=== PATIENT | male | born 1945 | race Caucasian/White ===

== ENCOUNTER 2016-12-15 14:01 | Emergency (ER) | payer OTHER ==
[~2016-12-15] VITALS: Ht 177.8 cm; Wt 59.0 kg
[2016-12-15 14:02] VITALS: BP 120/61; PULSE 101; RESP 20; TEMP 97.9; O2SAT 97
--- NOTE | 2016-12-15 14:39 | PD ---
Physical Exam Time Seen by Provider: 14:37 Narrative Pt is a [facility] from [facility] for evaluation of urinary retention for the past few hours. This has happened to him previously. C/o abdominal discomfort. Denies fever or chills. VSS. Awaiting bed placement. Data Data Last Documented VS Vital Signs Date Time Temp Pulse Resp B/P Pulse Ox O2 Delivery O2 Flow Rate FiO2 12/15/16 14:02 97.9 101 20 120/61 97 Room Air MDM Supervised Visit with AAYUSH: Francisca Matamoros Dec 15, 2016 14:39
--- NOTE | 2016-12-15 16:04 | PD ---
HPI . urinary retention Chief Complaint: Complaint Time Seen by Provider: 15:42 Travel History International Travel<30 days: No Contact w/Intl Traveler<30days: No Traveled to known affect area: No History of Present Illness HPI 60 year old male presents to ED for urinary retention from [facility]. PFSH Past Medical History Arthritis: No Asthma: No Autoimmune Disease: No Cancer: No Chemotherapy: No Chest Pain: No Congestive Heart Failure: No COPD: No Cerebrovascular Accident: No Diabetes: No Headaches: No Hypertension: No Radiation Therapy: No Renal Failure: No Seizures: No Past Surgical History Abdominal Surgery: Yes (APPENDECTOMY AND STOMACH SURGERY) Cardiac Surgery: No Ear Surgery: No Endocrine Surgery: No Eye Surgery: No Genitourinary Surgery: No Gynecologic Surgery: No Oral Surgery: No Pacemaker: No Thoracic Surgery: No Social History Alcohol Use: No Tobacco Use: No Substance Use: No Allergies-Medications (Allergen,Severity, Reaction): Coded Allergies: Depakote (Verified Allergy, Severe, 02/01/04) Zyprexa (Verified Allergy, Severe, 02/01/04) Ritalin (Verified Allergy, Unknown, 12/15/16) Reported Meds & Prescriptions Reported Meds & Active Scripts Active Reported Seroquel (Quetiapine Fumarate) 50 Mg Tab 50 Mg PO DAILY Buspirone (Buspirone HCl) 15 Mg Tab 15 Mg PO TID Mirtazapine 15 Mg Tab 15 Mg PO HS Quetiapine (Quetiapine Fumarate) 300 Mg Tab 600 Mg PO HS Quetiapine (Quetiapine Fumarate) 300 Mg Tab 300 Mg PO DAILY Review of Systems Genitourinary: Positive: Decreased Urinary Output, Hesitancy Physical Exam Narrative GENERAL: Awake and alert and in no acute distress. SKIN: Warm and dry. HEAD: Atraumatic. Normocephalic. EYES: Pupils equal and round. NECK: Trachea midline. CARDIOVASCULAR: Regular rate and rhythm. RESPIRATORY: No accessory muscle use. : bladder distended. MUSCULOSKELETAL: No obvious deformities. No edema. NEUROLOGICAL: Awake and alert. No obvious cranial nerve deficits. Motor grossly within normal limits. Normal speech. PSYCHIATRIC: Appropriate mood and affect; insight and judgment normal. Data Data Last Documented VS Vital Signs Date Time Temp Pulse Resp B/P Pulse Ox O2 Delivery O2 Flow Rate FiO2 12/15/16 14:02 97.9 101 20 120/61 97 Room Air Orders Urinalysis - C+S If Indicated (12/15/16 15:56) Labs Laboratory Tests Test 12/15/16 16:30 Urine Color YELLOW Urine Turbidity CLEAR Urine pH 5.5 Urine Specific Delmar 1.008 Urine Protein NEG mg/dL Urine Glucose (UA) NEG mg/dL Urine Ketones NEG mg/dL Urine Occult Blood NEG Urine Nitrite NEG Urine Bilirubin NEG Urine Urobilinogen LESS THAN 2.0 MG/DL Urine Leukocyte Esterase NEG Urine RBC LESS THAN 1 /hpf Urine WBC 1 /hpf Urine Squamous Epithelial <1 /hpf Cells Urine Mucus FEW /lpf Urine Sperm RARE Microscopic Urinalysis Comment CATH-CULT NOT IND MDM Medical Decision Making Medical Screen Exam Complete: Yes Emergency Medical Condition: Yes Differential Diagnosis differentials include urinary retention, UTI, medication reaction. Narrative Course Patient was sent from [facility] for urinary retention. Bray catheter was inserted at beside and 850 cc of urine was drained. Urine sent to lab for analysis. UA neg for infection. Patient will be discharged back to [facility]. Procedures Procedure Narrative Following appropriate patient identification, a 16 luxembourgish bray was inserted using sterile technique. Positive urine return tolerated well. Diagnosis Primary Impression: Urinary retention Patient Instructions: General Instructions, Urinary Retention in Men (DC) Disposition: 01 DISCHARGE HOME Condition: Stable Meredith Lawrence MD Dec 15, 2016 16:04
[2016-12-15] MEDS ORDERED: QUET1TAB10 PO ×2 (16:14)
[2016-12-15] MEDS ORDERED: MIRTA15 PO (16:14)
[2016-12-15] MEDS ORDERED: BUSP15TA PO (16:16)
[2016-12-15] MEDS ORDERED: SERO50TA PO (16:16)
[2016-12-15 16:43] LABS: BLOOD, URINE NEG (NEG); COMMENT (UR) CATH-CULT NOT IND; CULTURE IF INDICATED CATH CULTURE NOT IND; GLUCOSE,URINE NEG (NEG); KETONE, URINE NEG (NEG); MUCUS URINE FEW /lpf (OCC); NITRITE,URINE NEG (NEG); PH, URINE 5.5 (5.0-8.5); SQUAMOUS EPITHELIAL CELL URINE <1 /hpf (0-5); URINE COLOR YELLOW (YELLW/STRAW)
== END 2016-12-15 17:11 | disposition home or self-care (01) ==
LOC: NEPD 14:01
DX: R33.9 Retention of urine, unspecified (principal)
CPT/HCPCS: 51702; 81001

== ENCOUNTER 2016-12-15 19:03 | Observation (INO) | payer OTHER ==
[~2016-12-15] VITALS: Ht 185.4 cm; Wt 64.8 kg
[~2016-12-15 19:03] MED LIST: BUSP15TA PO; MIRTA15 PO; QUET1TAB10 PO; SERO50TA PO
[2016-12-15 19:06] VITALS: BP 128/91; PULSE 88; RESP 16; TEMP 98.3; O2SAT 95
[2016-12-15 19:14] VITALS: BP 138/79; PULSE 75; RESP 18; TEMP 97.9; O2SAT 99
--- NOTE | 2016-12-15 20:13 | PD ---
HPI Chief Complaint: Medical Clearance Time Seen by Provider: 19:35 Travel History International Travel<30 days: No Contact w/Intl Traveler<30days: No Traveled to known affect area: No History of Present Illness HPI Earlier today Patient was sent from [facility] for urinary retention. Bray catheter was inserted and 850 cc of urine was drained. UA neg for infection and patient was discharged back to [facility]. The patient was then sent back to the hospital because [facility] would not accept the patient with a Bray catheter and leg bag stating "it was beyond her scope of practice". Patient's only complaint is that he feels depressed and anxious. He denies homicidal or suicidal ideation at this time. He denies abdominal pain. The Bray is in place and draining clear yellow urine to the leg bag. Patient was apparently [place] acted on 12/13/16 for bipolar disorder and worsening depression. [facility] Past Medical History Narrative Medical Significant for bipolar, depression Arthritis: No Asthma: No Autoimmune Disease: No Cancer: No Chemotherapy: No Chest Pain: No Congestive Heart Failure: No COPD: No Cerebrovascular Accident: No Diabetes: No Diminished Hearing: No Headaches: No Hypertension: No Psychiatric: Yes (HX BIPOLAR) Radiation Therapy: No Renal Failure: No Seizures: No Tetanus Vaccination: Unknown Past Surgical History Abdominal Surgery: Yes (APPENDECTOMY AND STOMACH SURGERY) Appendectomy: Yes Cardiac Surgery: No Ear Surgery: No Endocrine Surgery: No Eye Surgery: No Genitourinary Surgery: No Gynecologic Surgery: No Oral Surgery: No Pacemaker: No Thoracic Surgery: No Social History Alcohol Use: No Tobacco Use: No Substance Use: No Allergies-Medications (Allergen,Severity, Reaction): Coded Allergies: Depakote (Verified Allergy, Severe, 02/01/04) Zyprexa (Verified Allergy, Severe, 02/01/04) Ritalin (Verified Allergy, Unknown, 12/15/16) Reported Meds & Prescriptions Reported Meds & Active Scripts Active Reported Seroquel (Quetiapine Fumarate) 50 Mg Tab 50 Mg PO DAILY Buspirone (Buspirone HCl) 15 Mg Tab 15 Mg PO TID Mirtazapine 15 Mg Tab 15 Mg PO HS Quetiapine (Quetiapine Fumarate) 300 Mg Tab 600 Mg PO HS Quetiapine (Quetiapine Fumarate) 300 Mg Tab 300 Mg PO DAILY Review of Systems Except as stated in HPI: all other systems reviewed are Neg General / Constitutional: No: Fever Eyes: No: Visual changes HENT: No: Headaches Cardiovascular: No: Chest Pain or Discomfort Respiratory: No: Shortness of Breath Gastrointestinal: No: Abdominal Pain Skin: No Rash Psychiatric: Positive: Anxiety, Depression Physical Exam Narrative GENERAL: Alert, elderly male, no acute distress. SKIN: Focused skin assessment warm/dry. HEAD: Atraumatic. Normocephalic. EYES: Pupils equal and round. No scleral icterus. No injection or drainage. ENT: No nasal bleeding or discharge. Mucous membranes pink and moist. NECK: Trachea midline. No JVD. CARDIOVASCULAR: Regular rate and rhythm. No murmur appreciated. RESPIRATORY: No accessory muscle use. Clear to auscultation. Breath sounds equal bilaterally. GASTROINTESTINAL: Abdomen soft, non-tender, nondistended. Hepatic and splenic margins not palpable. MUSCULOSKELETAL: No obvious deformities. No clubbing. No cyanosis. No edema. NEUROLOGICAL: Awake and alert. No obvious cranial nerve deficits. Motor grossly within normal limits. Normal speech. PSYCHIATRIC: Patient appears somewhat anxious, avoids eye contact. Answers questions appropriately Data Data Last Documented VS Vital Signs Date Time Temp Pulse Resp B/P Pulse Ox O2 Delivery O2 Flow Rate FiO2 12/15/16 19:14 97.9 75 18 138/79 99 Orders Psych Screen (12/15/16 19:18) Complete Blood Count With Diff (12/15/16 20:15) Comprehensive Metabolic Panel (12/15/16 20:15) Labs Laboratory Tests Test 12/15/16 16:20 White Blood Count 11.8 TH/MM3 Red Blood Count 3.58 MIL/MM3 Hemoglobin 9.7 GM/DL Hematocrit 30.0 % Mean Corpuscular Volume 83.8 FL Mean Corpuscular Hemoglobin 27.1 PG Mean Corpuscular Hemoglobin 32.4 % Concent Red Cell Distribution Width 14.7 % Platelet Count 211 TH/MM3 Mean Platelet Volume 8.0 FL Neutrophils (%) (Auto) 83.6 % Lymphocytes (%) (Auto) 8.6 % Monocytes (%) (Auto) 7.1 % Eosinophils (%) (Auto) 0.3 % Basophils (%) (Auto) 0.4 % Neutrophils # (Auto) 9.8 TH/MM3 Lymphocytes # (Auto) 1.0 TH/MM3 Monocytes # (Auto) 0.8 TH/MM3 Eosinophils # (Auto) 0.0 TH/MM3 Basophils # (Auto) 0.0 TH/MM3 CBC Comment DIFF FINAL Differential Comment MDM Medical Decision Making Medical Screen Exam Complete: Yes Emergency Medical Condition: Yes Differential Diagnosis Urinary retention, mood disorder, depression, anxiety Narrative Course 71-year-old male here in [facility] under [place] act for psychosis. Patient was seen earlier today for urinary retention. He had bray catheter placed and sent back to [facility]. According to them this is beyond her scope of practice therefore they sent him back to the hospital. Lab work pending. Psych screening pending. 2054 Dr. Schultz to follow patient. Diagnosis Primary Impression: Urinary retention Leona Kasper Dec 15, 2016 20:13
--- NOTE | 2016-12-15 20:15 | PD ---
Data Data Last Documented VS Vital Signs Date Time Temp Pulse Resp B/P Pulse Ox O2 Delivery O2 Flow Rate FiO2 12/15/16 19:14 97.9 75 18 138/79 99 Orders Psych Screen (12/15/16 19:18) MDM Supervised Visit with AAYUSH: Yes Narrative Course The history, exam, and medical decision-making in the associated mid-level provider note were completed with my assistance. I reviewed and agree with the findings presented. I attest that I had a [id number] encounter with the patient on the same day, and personally performed and documented my assessment and findings in the medical record. *My assessment and Findings: 8-year-old man, under [place] act for psychosis, seen for urinary retention with a Amos catheter placed, apparently now not within [facility] scope of care. Sent back to the ED. We'll plan psych to see for admission. We'll check creatinine and blood work. Denys Pisano MD Dec 15, 2016 20:15
[2016-12-15 20:55] LABS: AUTOMATED NEUTROPHIL # 9.8 TH/MM3 (1.8-7.7); BASOPHIL % 0.4 % (0.0-2.0); EOSINOPHIL % 0.3 % (0.0-4.0); HEMO FLAGS DIFF FINAL; LYMPH % 8.6 % (9.0-44.0); MEAN CELL VOLUME 83.8 FL (80.0-100.0); MEAN CORPUSCULAR HEMOGLOBIN 27.1 PG (27.0-34.0); MEAN CORPUSCULAR HGB CONC 32.4 % (32.0-36.0); MONO % 7.1 % (0.0-8.0); NEUT % 83.6 % (16.0-70.0); PLATELET COUNT 211 TH/MM3 (150-450); RED BLOOD COUNT 3.58 MIL/MM3 (4.50-5.90); RED CELL DISTRIBUTION WIDTH 14.7 % (11.6-17.2); WHITE BLOOD COUNT 11.8 TH/MM3 (4.0-11.0)
[2016-12-15 21:06] LABS: ALT (GPT) 23 U/L (12-78); ANION GAP 9 MEQ/L (5-15); AST (GOT) 20 U/L (15-37); BICARBONATE 22.9 MEQ/L (21.0-32.0); BLOOD UREA NITROGEN 26 MG/DL (7-18); CHLORIDE 94 MEQ/L (98-107); GLOMERULAR FILTRATION RATE 41 ML/MIN (>89); POTASSIUM 4.2 MEQ/L (3.5-5.1); SODIUM (NA) 126 MEQ/L (136-145)
[2016-12-15 21:09] LABS: ALKALINE PHOSPHATASE 49 U/L (45-117); TOTAL BILIRUBIN ADULT 0.6 MG/DL (0.2-1.0)
[2016-12-15 22:33] VITALS: BP 124/76; PULSE 85; RESP 16
[2016-12-16 02:15] VITALS: BP 145/79; PULSE 73; RESP 18; TEMP 98; O2SAT 96
[2016-12-16 08:10] VITALS: BP 113/58; PULSE 85; RESP 16; O2SAT 97
[2016-12-16] MEDS ORDERED: ACETAMINOPHEN 325 MG TAB PO PRN (12:00)
[2016-12-16] MEDS ORDERED: LORazepam 1 MG TAB PO PRN (12:00)
[2016-12-16] MEDS ORDERED: LORazepam 2 MG/ML VIAL IM PRN ×2 (12:00)
[2016-12-16] MEDS ORDERED: MAGNESIUM HYDROXIDE SUSP 30 ML CUP PO PRN ×2 (12:00→18:11)
[2016-12-16] MEDS ORDERED: LORazepam 0.5 MG TAB PO PRN (12:00)
[2016-12-16] MEDS ORDERED: ALUMINUM/MAGNESIUM/SIMETH 30 ML CUP PO PRN (12:00)
--- NOTE | 2016-12-16 12:08 | HHI.HP ---
Provisional Diagnosis Admission Date Crystal I. Dementia with behavioral disturbance Certification of Person's Competence To Provide Express and Informed Consent I have personally examined Tyler Catherine , a person being served at [facility] on, Dec 16, 2016 11:56. Express and informed consent means consent voluntarily given in writing, by a competent person, after sufficient explanation and disclosure of the subject matter involved to enable the person to make a knowing and willful decision without any element of force, fraud, deceit, duress, or other form of constraint or coercion. This person is 18 years of age or older, is not now known to be incompetent to consent to treatment with a guardian advocate, and does not have a health care surrogate or proxy currently making medical treatment decisions. I have found this person to be one of the following: [X] Competent to provide express and informed consent, as defined above, for voluntary admission to this facility and is competent to provide express and informed consent for treatment. He/she has the consistent capacity to make well reasoned, willful, and knowing decisions concerning his or her medical or mental health treatment. The person fully and consistently understands the purpose of the admission for examination/placement and is fully capable of personally exercising all rights assured under [place] Incompetent to provide express and informed consent to voluntary admission, and this is incompetent to provide express and informed consent to treatment. The person must be transferred to involuntary status and a petition for a guardian advocate filed with the Circuit Court. [] Refusing to provide express and informed consent to voluntary admission but is competent to provide express and informed consent for treatment. The person must be discharged or transferred to involuntary status. Form shall be completed within 24 hours of a person's arrival at the receiving facility and filed in the clinical record of each person: 1. Admitted on a voluntary basis 2. Permitted to provide express and informed consent to his/her own treatment 3. Allowed to transfer from involuntary to voluntary status 4. Prior to permitting a person to consent to his or her own treatment after having been previously found incompetent to consent to treatment. History of Present Illness Capacity: Has Capacity HPI This is a 71-year-old male admitted under a [place] act initiated by a car and he at [facility]. He is a poor historian and the history provided is somewhat complicated and contradictory. However patient is unable to explain his situation. He presented at [facility] highly anxious and agitated, pacing and refusing to sit down. He reportedly had thoughts of killing himself by drinking bleach within the last several days. This contradicts the [facility] emergency department evaluation in which the patient denied being suicidal. The patient also endorsed hopelessness helplessness low self-esteem, etc. He was found to be confused by previous evaluators and by this physician. He was unable to provide detailed information about the recent events that led to his presentation here. He did present with urinary retention and catheterized, he produced 850CC of urine was expelled. When asked if he had suicidal thoughts the patient stated "hard to say if I am suicidal." The patient reportedly lives in a delay and long-term facility. He has reportedly been treated at [facility] for bipolar disorder. He is not able to confirm this. He does not have a history of substance abuse or alcohol abuse. He remains disoriented to date, time and situation. Review of Systems Except as stated in HPI: all other systems reviewed are Neg Genitourinary: COMPLAINS OF: Dysuria Past Psych History Psychological trauma history No known history of psychological trauma but the patient states he has been treated at [facility] in the [place]. Violence risk - others (6 mos) Minimal Violence risk - self (6 mos) Patient is at high risk for self-harm and self-neglect. Substance Abuse History Drugs/Alcohol past 12 months Denied Past Family Social History Coded Allergies: Depakote (Verified Allergy, Severe, 02/01/04) Zyprexa (Verified Allergy, Severe, 02/01/04) Ritalin (Verified Allergy, Unknown, 12/15/16) Reported Medications Quetiapine (Seroquel)50 Mg Tab50 Mg PO DAILY Ref 0 12/15/16 Buspirone 15 Mg Tab15 Mg PO TID Ref 0 12/15/16 Mirtazapine 15 Mg Tab15 Mg PO HS Ref 0 12/15/16 Quetiapine 300 Mg [id number] Mg PO HS Ref 0 12/15/16 Quetiapine 300 Mg [id number] Mg PO DAILY Ref 0 12/15/16 Family History Patient unable to answer. Social History Retired. Lives in some type of residential care facility. Does not have a history of alcoholism or drug abuse. Patient's Strengths (min. 2) Resilient and has access to healthcare. Physical Exam GENERAL: SKIN: Warm and dry. HEAD: Normocephalic. EYES: No scleral icterus. No injection or drainage. NECK: Supple, trachea midline. No JVD or lymphadenopathy. CARDIOVASCULAR: Regular rate and rhythm without murmurs, gallops, or rubs. RESPIRATORY: Breath sounds equal bilaterally. No accessory muscle use. GASTROINTESTINAL: Abdomen soft, non-tender, nondistended. MUSCULOSKELETAL: No cyanosis, or edema. BACK: Nontender without obvious deformity. No CVA tenderness. Vital Signs Vital Signs Date Time Temp Pulse Resp B/P Pulse Ox O2 Delivery O2 Flow Rate FiO2 12/16/16 08:10 85 16 113/58 97 Room Air 12/16/16 02:15 98.0 Mental Status Examination Speech: Hesitant, Stuttering Orientation: Person, Place Memory: Impaired (describe) Thought Process: Tangential Thought Content: Bizarre thinking Hallucination Type: None Attention and Concentration: Easily Distracted Suicidal Ideation: Yes Previous Suicide Attempts: No Homicidal Ideation: No Previous Homicide Attempts: No Insight: Fair Judgment: Unrealistic Affect: Anxious Affect if Inappropriate: Labile Mood: Anxious Motor Activity: Normal gait Assessment & Plan Problem List: (1) Dementia in other diseases classified elsewhere with behavioral disturbance ICD Code: F02.81 Assessment & Plan Estimated LOS: days this is a 71-year-old male who is presently at high risk for self-harm and self-neglect. He has apparently voiced suicidal thinking and claimed to have drunk bleach in the last several days. He is also claiming ongoing suicidal thoughts which occur intermittently and unpredictably. Furthermore, he has urinary retention to the tune of 850 cc expressed after catheterization. He is oriented to person and place only. He is obviously unable to care for himself at this time, without assistance. This physician has ordered a CBC and comprehensive metabolic profile to ensure no infectious process or metabolic process is causing him confusion and anxiety. Furthermore, his thyroid function will be checked to ensure he is not hypo-or hyperthyroidism, causing mood or psychosis. He will receive an EKG to ensure cardiac conduction systems are not adversely affected by psychotropic medications. This physician is contacting a hospitalist to evaluate and treat the patient for urinary retention. This physician spoke to the patient's nurse regarding his current behavior and this physician is asking for an occupational therapy consult to ascertain the patient's functional status. A embalmer assistant will also be asked to gather more information. We will check vitamin B-12 and vitamin D levels to ensure this is not contributing to a dementia process. Hussain Pompa MD Dec 16, 2016 12:08
[2016-12-16] MEDS ORDERED: SODIUM CHLOR 0.9% 1000 ML INJ 1,000 ML IV ONE (14:00)
[2016-12-16 17:17] LABS: AUTOMATED NEUTROPHIL # 6.1 TH/MM3 (1.8-7.7); BASOPHIL % 0.1 % (0.0-2.0); EOSINOPHIL % 0.1 % (0.0-4.0); HEMATOCRIT 30.7 % (39.0-51.0); HEMO FLAGS DIFF FINAL; LYMPH % 11.9 % (9.0-44.0); LYMPHOCYTE # 0.9 TH/MM3 (1.0-4.8); MEAN CELL VOLUME 82.3 FL (80.0-100.0); MEAN CORPUSCULAR HEMOGLOBIN 27.7 PG (27.0-34.0); MEAN CORPUSCULAR HGB CONC 33.7 % (32.0-36.0); MONO % 8.3 % (0.0-8.0); NEUT % 79.6 % (16.0-70.0); PLATELET COUNT 225 TH/MM3 (150-450); RED BLOOD COUNT 3.73 MIL/MM3 (4.50-5.90); RED CELL DISTRIBUTION WIDTH 14.7 % (11.6-17.2); WHITE BLOOD COUNT 7.7 TH/MM3 (4.0-11.0)
[2016-12-16] MEDS ORDERED: NALOXONE HCL 0.4 MG/ML AMP IV PRN (17:30)
[2016-12-16] MEDS ORDERED: SODIUM CHLORIDE 0.9% FLUSH 10 ML FLUSH IV FLUSH PRN (17:30)
[2016-12-16 17:32] LABS: ANION GAP 8 MEQ/L (5-15); AST (GOT) 17 U/L (15-37); BICARBONATE 26.2 MEQ/L (21.0-32.0); BLOOD UREA NITROGEN 22 MG/DL (7-18); CHLORIDE 96 MEQ/L (98-107); GLOMERULAR FILTRATION RATE 45 ML/MIN (>89); POTASSIUM 4.5 MEQ/L (3.5-5.1); SODIUM (NA) 130 MEQ/L (136-145)
[2016-12-16 17:34] LABS: ALKALINE PHOSPHATASE 48 U/L (45-117); ALT (GPT) 22 U/L (12-78); TOTAL BILIRUBIN ADULT 0.6 MG/DL (0.2-1.0)
[2016-12-16] MEDS ORDERED: SENNOSIDES 8.6 MG TAB PO PRN (18:00)
[2016-12-16] MEDS ORDERED: BISACODYL 10 MG SUPP RECTAL PRN (18:00)
[2016-12-16] MEDS ORDERED: LACTULOSE SYRUP 20 GM/30 ML CUP PO PRN (18:00)
[2016-12-16 18:30] VITALS: BP 113/67
[2016-12-16 20:00] VITALS: BP 103/54; PULSE 69; RESP 20; TEMP 97.2; O2SAT 100
[2016-12-16] MEDS: traZODone HCL 50 MG TAB PO PRN (20:29)
[2016-12-16] MEDS: DOCUSATE SODIUM 50 MG/SENNA 8.6 MG TAB PO SCH (20:29)
[2016-12-16] MEDS: SODIUM CHLORIDE 0.9% FLUSH 10 ML FLUSH IV FLUSH SCH (20:29)
--- NOTE | 2016-12-16 23:00 | HHI.HP ---
[facility] Admission Diagnosis DEMENTIA WITH BEHAV DISTURB Diagnoses: Travel History International Travel<30 Days: No Contact w/Intl Traveler <30 Da: No Traveled to Known Affected Are: No History of Present Illness Patient reports being sent in the ER from [facility]. Patient is from SNF , was undergoing detox at [facility]. Patient reports being sent in to ER for urinary retention. He denies any burning with urination. He says he has had difficulty urinating for some time, however cannot tell me how long Not taking medications for urinary symptoms. He denies any chest pain or shortness breath. Denies any nausea or vomiting. Oddly enough he denies any illicit drugs. Patient is a very poor historian, and history is difficult due to this. Patient does recall being told he has a problem with low sodium in the past, as well as a problem with poor kidney function. Review of Systems attempted but difficult secondary to disorganized speech Past Family Social History Past Medical History Anxiety Depression History of bipolar disorder Past Surgical History Appendectomy Esophageal dilation in the past. Patient denies any difficulty swallowing. Allergies: Coded Allergies: Depakote (Verified Allergy, Severe, 02/01/04) Zyprexa (Verified Allergy, Severe, 02/01/04) Ritalin (Verified Allergy, Unknown, 12/15/16) Family History Family history attempted but patient very poor historian Social History Patient denies any smoking, drinking. He seems to acknowledge a history of illicit drugs, however does not describe which, and denies current use. Physical Exam Vital Signs Vital Signs Date Time Temp Pulse Resp B/P Pulse Ox O2 Delivery O2 Flow Rate FiO2 12/16/16 20:00 97.2 69 20 103/54 100 12/16/16 18:30 78 18 113/67 99 12/16/16 08:10 85 16 113/58 97 Room Air 12/16/16 02:15 98.0 73 18 145/79 96 Room Air Physical Exam GENERAL: thin 71-year-old male. Disorganized speech. SKIN: No rashes, ecchymoses or lesions. Cool and dry. HEAD: Atraumatic. Normocephalic. No temporal or scalp tenderness. EYES: Pupils equal round and reactive. Extraocular motions intact. No scleral icterus. No injection or drainage. ENT: Nose without bleeding, purulent drainage or septal hematoma. Throat without erythema, tonsillar hypertrophy or exudate. Uvula midline. Airway patent. NECK: Trachea midline. No JVD or lymphadenopathy. Supple, nontender, no meningeal signs. CARDIOVASCULAR: Regular rate and rhythm without murmurs, gallops, or rubs. RESPIRATORY: Clear to auscultation. Breath sounds equal bilaterally. No wheezes , rales, or rhonchi. GASTROINTESTINAL: Abdomen soft, non-tender, nondistended. No hepato-splenomegaly , or palpable masses. No guarding. MUSCULOSKELETAL: Extremities without clubbing, cyanosis, or edema. No joint tenderness, effusion, or edema noted. No calf tenderness. Negative Homans sign bilaterally. NEUROLOGICAL: Awake and alert. Cranial nerves II through XII intact. Motor and sensory grossly within normal limits. Five out of 5 muscle strength in all muscle groups. Normal speech. Laboratory Laboratory Tests Test 12/16/16 16:40 White Blood Count 7.7 Red Blood Count 3.73 Hemoglobin 10.3 Hematocrit 30.7 Mean Corpuscular Volume 82.3 Mean Corpuscular Hemoglobin 27.7 Mean Corpuscular Hemoglobin 33.7 Concent Red Cell Distribution Width 14.7 Platelet Count 225 Mean Platelet Volume 8.0 Neutrophils (%) (Auto) 79.6 Lymphocytes (%) (Auto) 11.9 Monocytes (%) (Auto) 8.3 Eosinophils (%) (Auto) 0.1 Basophils (%) (Auto) 0.1 Neutrophils # (Auto) 6.1 Lymphocytes # (Auto) 0.9 Monocytes # (Auto) 0.6 Eosinophils # (Auto) 0.0 Basophils # (Auto) 0.0 CBC Comment DIFF FINAL Differential Comment Sodium Level 130 Potassium Level 4.5 Chloride Level 96 Carbon Dioxide Level 26.2 Anion Gap 8 Blood Urea Nitrogen 22 Creatinine 1.55 Estimat Glomerular Filtration 45 Rate Random Glucose 109 Calcium Level 9.2 Total Bilirubin 0.6 Aspartate Amino Transf 17 (AST/SGOT) Alanine Aminotransferase 22 (ALT/SGPT) Alkaline Phosphatase 48 Total Protein 6.7 Albumin 3.8 Result Diagram: 12/16/16 1640 12/16/16 1640 Assessment and Plan Assessment and Plan //Suicidality. //Depression //History of bipolar Psychiatry following. Sitter ordered. Appreciate assistance. //Hyponatremia. Possibly subacute. Possibly secondary to antipsychotics. Repeat labs ordered. Fluid bolus. Continue to monitor //Urinary retention. Patient previously cathetered. Postvoid residual ordered. Could consider starting tamsulosin pending results. //Suspected chronic kidney disease. Follow kidney function. Outside records requested //Prophylaxis. SCDs. Discussed Condition With patient, nurse. Physician Certification 2 Midnight Certification Type: Continued Stay Order for Inpatient Services The services are ordered in accordance with Medicare regulations or non- Medicare payer requirements, as applicable. In the case of services not specified as inpatient-only, they are appropriately provided as inpatient services in accordance with the 2-midnight benchmark. Estimated LOS (days): 1 days is the estimated time the patient will need to remain in the hospital, assuming treatment plan goals are met and no additional complications. Post-Hospital Plan: Not yet determined Notes: patient will be observation. Max Albert MD Dec 16, 2016 23:00
[2016-12-17] VITALS: BP 102/59; PULSE 67; RESP 20; TEMP 98; O2SAT 97
[2016-12-17 04:00] VITALS: BP 115/69; PULSE 60; RESP 20; TEMP 95.4; O2SAT 98
[2016-12-17 07:00] LABS: BACTERIA, URINE RARE /hpf; BLOOD, URINE TRACE (NEG); COMMENT (UR) CULT NOT INDICATED; CULTURE IF INDICATED CULT NOT INDICATED; GLUCOSE,URINE NEG (NEG); KETONE, URINE NEG (NEG); NITRITE,URINE NEG (NEG); PH, URINE 7.5 (5.0-8.5); URINE COLOR LIGHT-YELLOW (YELLW/STRAW)
[2016-12-17 07:16] LABS: AMPHETAMINE, URINE NEG (NEG); BARBITURATES, URINE NEG (NEG); COCAINE, URINE NEG (NEG)
[2016-12-17 08:00] VITALS: BP 105/63; PULSE 65; RESP 19; TEMP 96.3; O2SAT 100
[2016-12-17] MEDS: DOCUSATE SODIUM 50 MG/SENNA 8.6 MG TAB PO SCH ×2 (08:12→20:36)
[2016-12-17] MEDS: SODIUM CHLORIDE 0.9% FLUSH 10 ML FLUSH IV FLUSH SCH ×2 (08:12→20:36)
[2016-12-17 08:36] LABS: AUTOMATED NEUTROPHIL # 3.6 TH/MM3 (1.8-7.7); BASOPHIL % 0.3 % (0.0-2.0); EOSINOPHIL % 0.6 % (0.0-4.0); HEMATOCRIT 29.4 % (39.0-51.0); HEMO FLAGS DIFF FINAL; LYMPH % 15.4 % (9.0-44.0); LYMPHOCYTE # 0.7 TH/MM3 (1.0-4.8); MEAN CELL VOLUME 82.8 FL (80.0-100.0); MEAN CORPUSCULAR HEMOGLOBIN 27.3 PG (27.0-34.0); MONO % 9.6 % (0.0-8.0); NEUT % 74.1 % (16.0-70.0); PLATELET COUNT 190 TH/MM3 (150-450); RED BLOOD COUNT 3.55 MIL/MM3 (4.50-5.90); RED CELL DISTRIBUTION WIDTH 14.5 % (11.6-17.2); WHITE BLOOD COUNT 4.8 TH/MM3 (4.0-11.0)
[2016-12-17 09:02] LABS: ALT (GPT) 19 U/L (12-78); ANION GAP 6 MEQ/L (5-15); AST (GOT) 13 U/L (15-37); BICARBONATE 26.6 MEQ/L (21.0-32.0); BLOOD UREA NITROGEN 19 MG/DL (7-18); CHLORIDE 98 MEQ/L (98-107); GLOMERULAR FILTRATION RATE 55 ML/MIN (>89); POTASSIUM 4.5 MEQ/L (3.5-5.1); SODIUM (NA) 131 MEQ/L (136-145)
[2016-12-17 09:29] LABS: ALKALINE PHOSPHATASE 44 U/L (45-117); HDL CHOLESTEROL 90.3 MG/DL (40.0-60.0); LDL CHOLESTEROL 45 MG/DL (0-99); TOTAL BILIRUBIN ADULT 0.9 MG/DL (0.2-1.0)
--- NOTE | 2016-12-17 11:40 | HHI.PR ---
Subjective Remarks Patient reports constipation today. He was given milk of magnesia. States he had one bowel movement but still feel constipated. Amos draining clear urine. Objective Vitals Vital Signs Date Time Temp Pulse Resp B/P Pulse Ox O2 Delivery O2 Flow Rate FiO2 12/17/16 08:00 96.3 65 19 105/63 100 12/17/16 04:00 95.4 60 20 115/69 98 12/17/16 00:00 98.0 67 20 102/59 97 12/16/16 20:00 97.2 69 20 103/54 100 12/16/16 18:30 78 18 113/67 99 I/O 12/16/16 12/16/16 12/16/16 12/17/16 12/17/16 12/17/16 07:00 15:00 23:00 07:00 15:00 23:00 Intake Total 560 ml Output Total 65 ml Balance 560 ml -65 ml Intake Oral 560 ml Output Urine Total 65 ml # Voids 1 1 # Bowel Movements 1 Result Diagram: 12/17/16 0750 12/17/16 0750 Objective Remarks GENERAL: Patient is pacing in the room. CARDIOVASCULAR: Normal rate and regular rhythm without murmurs, gallops, or rubs. RESPIRATORY: Good respiratory efforts. Breath sounds equal and clear to auscultation bilaterally. GASTROINTESTINAL: Abdomen mildly distended and mildly tender diffusely. Hyperactive bowel sounds. MUSCULOSKELETAL: Extremities without cyanosis, or edema. NEURO: Alert & Oriented x4 to person, place, time, situation. Moves all ext x4 PSYCH: Anxious, pacing A/P Assessment and Plan 71 year-old male [facility]. Patient was sent to the hospital for urinary retention. He was sent back with a Amos catheter. However [facility] would not except him with a Amos catheter. Patient was readmitted to the hospital. Reported Suicidality. Depression History of bipolar Psychiatry following. Appreciate assistance. --He may benefit from psychiatric admission once medically cleared. Hyponatremia. Most likely subacute. Possibly secondary to antipsychotics. Appear to be stable. Continue to monitor. Urinary retention. Patient is unsure whether or not he is had prostate problems. He has a Amos catheter in place. BPH is very common in his age group. Will start Flomax. Continue Amos. Inpatient versus outpatient voiding trial. Suspected chronic kidney disease. Follow kidney function. Outside records requested Constipation: He is responding to the milk of magnesia. Monitor for more bowel movements. Continue stool softeners and laxatives as needed. Prophylaxis. SCDs. Discharge Planning Possible discharge to psych tomorrow. Karla Hernandez MD Dec 17, 2016 11:40
[2016-12-17 12:00] VITALS: BP 101/61; PULSE 73; RESP 18; TEMP 95.8; O2SAT 99
[2016-12-17] MEDS: TAMSULOSIN HCL 0.4 MG CAP PO SCH (12:53)
--- NOTE | 2016-12-17 13:45 | EKG ---
Date Performed: 12/16/2016 Time Performed: 14:34:51 PTAGE: 71 years EKG: Sinus rhythm POSSIBLE RIGHT ATRIAL ENLARGEMENT LEFT ATRIAL ENLARGEMENT POSSIBLE RIGHT VENTRICULAR CONDUCTION MELISSA Y ABNORMAL ECG Compared to prior tracing no significant change PREVIOUS TRACING : 04/07/2004 17.48 DOCTOR: Edmond Dickinson Interpretating Date/Time 12/17/2016 13:42:52
[2016-12-17 15:12] LABS: HEMOGLOBIN A1a 1.1 %; HEMOGLOBIN A1b 1.5 %; HEMOGLOBIN Ao 85.6 %; HEMOGLOBIN LA1C 1.8 %; HEMOGLOBIN P3 3.9 %
[2016-12-17 16:00] VITALS: BP 93/56; PULSE 78; RESP 18; TEMP 96.1; O2SAT 99
[2016-12-17] MEDS: SODIUM CHLOR 0.9% 1000 ML INJ 1,000 ML IV SCH (17:50)
[2016-12-17 20:14] VITALS: BP 99/55; PULSE 73; RESP 16; TEMP 97.4; O2SAT 99
[2016-12-17] MEDS: hydrOXYzine HCL 50 MG TAB PO PRN (20:36)
[2016-12-18] MEDS: SODIUM CHLOR 0.9% 1000 ML INJ 1,000 ML IV SCH ×3 (00:19→21:59)
[2016-12-18 00:23] VITALS: BP 118/59; PULSE 70; RESP 17; TEMP 97.8; O2SAT 99
[2016-12-18] MEDS: traZODone HCL 50 MG TAB PO PRN (02:52)
[2016-12-18 04:39] VITALS: BP 126/70; PULSE 64; RESP 17; TEMP 98.1; O2SAT 99
[2016-12-18 07:40] VITALS: BP 116/64; PULSE 63; RESP 18; TEMP 98; O2SAT 99
[2016-12-18] MEDS: TAMSULOSIN HCL 0.4 MG CAP PO SCH (09:00)
[2016-12-18] MEDS: DOCUSATE SODIUM 50 MG/SENNA 8.6 MG TAB PO SCH ×2 (09:00→21:58)
[2016-12-18] MEDS: SODIUM CHLORIDE 0.9% FLUSH 10 ML FLUSH IV FLUSH SCH ×2 (09:54→21:58)
[2016-12-18 11:34] VITALS: BP 119/69; PULSE 63; RESP 18; TEMP 97.7; O2SAT 100
--- NOTE | 2016-12-18 12:04 | HHI.PR ---
Subjective Remarks Patient reports is feeling much better today. He still does not remember whether or not he has had prostate or urinary retention problems in the past. He recalls he may have been on medications for this. He is agreeable to being admitted to the psychiatric unit to complete the treatment he started at [facility]. Objective Vitals Vital Signs Date Time Temp Pulse Resp B/P Pulse Ox O2 Delivery O2 Flow Rate FiO2 12/18/16 11:34 97.7 63 18 119/69 100 12/18/16 07:40 98.0 63 18 116/64 99 12/18/16 04:39 98.1 64 17 126/70 99 12/18/16 00:23 97.8 70 17 118/59 99 12/17/16 20:14 97.4 73 16 99/55 99 12/17/16 16:00 96.1 78 18 93/56 99 I/O 12/17/16 12/17/16 12/17/16 12/18/16 12/18/16 12/18/16 07:00 15:00 23:00 07:00 15:00 23:00 Intake Total 1100 ml 360 ml Output Total 65 ml 550 ml 1750 ml 250 ml Balance -65 ml -550 ml -650 ml 110 ml Intake Oral 360 ml IV Total 1100 ml Output Urine Total 65 ml 550 ml 1750 ml 250 ml # Voids 1 # Bowel Movements 2 Result Diagram: 12/17/16 0750 12/17/16 0750 Objective Remarks GENERAL: Patient is more calm today, laying in bed. CARDIOVASCULAR: Normal rate and regular rhythm without murmurs, gallops, or rubs. RESPIRATORY: Good respiratory efforts. Breath sounds equal and clear to auscultation bilaterally. GASTROINTESTINAL: Abdomen soft, nontender, nondistended. Normal active bowel sounds MUSCULOSKELETAL: Extremities without cyanosis, or edema. NEURO: Alert & Oriented to self and place. Moves all ext x4. Normal speech PSYCH: More calm today. Forgetful. A/P Assessment and Plan 71 year-old male [facility]. Patient was sent to the hospital for urinary retention. He was sent back with a Amos catheter. However [facility] would not except him with a Amos catheter. Patient was readmitted to the hospital. Reported Suicidality. Depression History of bipolar Psychiatry following. Appreciate assistance. --He may benefit from psychiatric admission once medically cleared. Hyponatremia. Most likely subacute. Possibly secondary to antipsychotics. Appear to be stable. Continue to monitor. Urinary retention. Patient is unsure whether or not he is had prostate problems. A Amos was placed in the ED. BPH is very common in his age group. He was started on Flomax. Will attempt a voiding trial today. If unable to void, will reinsert Amos and he will need outpatient follow-up with urology for urodynamic studies and treatment. Suspected chronic kidney disease. Renal functions much improved. Constipation: Resolved. Continue stool softeners and laxatives as needed. Prophylaxis. SCDs. Discharge Planning Possible discharge to psych today or tomorrow morning. Karla Hernandez MD Dec 18, 2016 12:04
[2016-12-18 15:35] VITALS: BP 107/64; PULSE 56; RESP 18; TEMP 98.6; O2SAT 99
[2016-12-18 20:29] VITALS: BP 90/52; PULSE 64; RESP 16; TEMP 97.2; O2SAT 100
[2016-12-18] MEDS: hydrOXYzine HCL 50 MG TAB PO PRN (21:58)
[2016-12-19 00:05] VITALS: BP 125/67; PULSE 52; RESP 16; TEMP 97.4; O2SAT 100
[2016-12-19 03:53] VITALS: BP 129/71; PULSE 59; RESP 16; TEMP 98.3; O2SAT 98
[2016-12-19] MEDS: SODIUM CHLOR 0.9% 1000 ML INJ 1,000 ML IV SCH ×2 (06:26→17:30)
[2016-12-19 07:23] VITALS: BP 135/68; PULSE 61; RESP 18; TEMP 97; O2SAT 96
[2016-12-19] MEDS: TAMSULOSIN HCL 0.4 MG CAP PO SCH (08:15)
[2016-12-19] MEDS: DOCUSATE SODIUM 50 MG/SENNA 8.6 MG TAB PO SCH ×2 (08:15→21:13)
[2016-12-19] MEDS: SODIUM CHLORIDE 0.9% FLUSH 10 ML FLUSH IV FLUSH SCH ×2 (08:16→21:13)
[2016-12-19] MEDS: hydrOXYzine HCL 50 MG TAB PO PRN ×3 (09:17→21:13)
[2016-12-19 11:57] VITALS: BP 133/68; PULSE 64; RESP 18; TEMP 97.6; O2SAT 99
[2016-12-19] MEDS ORDERED: SENN1TAB PO (12:53)
[2016-12-19] MEDS ORDERED: TAMS5CAP PO (12:53)
[2016-12-19] MEDS ORDERED: Lactulose Liq PO (12:53)
[2016-12-19] MEDS ORDERED: TRAZ50TA12 PO (12:53)
--- NOTE | 2016-12-19 12:58 | HHI.DS ---
Discharge Summary Admission Date Dec 16, 2016 at 11:54 Discharge Date: Dec 19, 2016 Admitting Diagnosis DEMENTIA WITH BEHAV DISTURB (1) Dementia in other diseases classified elsewhere with behavioral disturbance ICD Code: F02.81 (2) Urinary retention ICD Code: R33.9 Procedures None Brief History - From Admission Patient reports being sent in the ER from [facility]. Patient is from SNF , was undergoing detox at [facility]. Patient reports being sent in to ER for urinary retention. He denies any burning with urination. He says he has had difficulty urinating for some time, however cannot tell me how long Not taking medications for urinary symptoms. He denies any chest pain or shortness breath. Denies any nausea or vomiting. Oddly enough he denies any illicit drugs. Patient is a very poor historian, and history is difficult due to this. Patient does recall being told he has a problem with low sodium in the past, as well as a problem with poor kidney function. CBC/BMP: 12/17/16 0750 12/17/16 0750 Significant Findings Laboratory Tests Test 12/16/16 12/17/16 12/17/16 16:40 06:15 07:50 Red Blood Count 3.73 MIL/MM3 3.55 MIL/MM3 (4.50-5.90) (4.50-5.90) Hemoglobin 10.3 GM/DL 9.7 GM/DL (13.0-17.0) (13.0-17.0) Hematocrit 30.7 % 29.4 % (39.0-51.0) (39.0-51.0) Neutrophils (%) (Auto) 79.6 % 74.1 % (16.0-70.0) (16.0-70.0) Monocytes (%) (Auto) 8.3 % (0.0-8.0) 9.6 % (0.0-8.0) Lymphocytes # (Auto) 0.9 TH/MM3 0.7 TH/MM3 (1.0-4.8) (1.0-4.8) Sodium Level 130 MEQ/L 131 MEQ/L (136-145) (136-145) Chloride Level 96 MEQ/L (98-107) Blood Urea Nitrogen 22 MG/DL (7-18) 19 MG/DL (7-18) Creatinine 1.55 MG/DL (0.60-1.30) Estimat Glomerular Filtration 45 ML/MIN (>89) 55 ML/MIN (>89) Rate Random Glucose 109 MG/DL (74-106) Urine Occult Blood TRACE (NEG) Urine RBC 11 /hpf (0-3) Urine Bacteria RARE /hpf (NONE) Aspartate Amino Transf 13 U/L (15-37) (AST/SGOT) Alkaline Phosphatase 44 U/L (45-117) Total Protein 6.3 GM/DL (6.4-8.2) HDL Cholesterol 90.3 MG/DL (40.0-60.0) 25-Hydroxy Vitamin D Total 17.9 ng/ML (30-100) PE at Discharge GENERAL: Patient is more calm today, laying in bed. CARDIOVASCULAR: Normal rate and regular rhythm without murmurs, gallops, or rubs. RESPIRATORY: Good respiratory efforts. Breath sounds equal and clear to auscultation bilaterally. GASTROINTESTINAL: Abdomen soft, nontender, nondistended. Normal active bowel sounds MUSCULOSKELETAL: Extremities without cyanosis, or edema. NEURO: Alert & Oriented to self and place. Moves all ext x4. Normal speech PSYCH: More calm today. Forgetful. Pt update on day of discharge Patient reports he is feeling okay. He is voiding without any problems. Discussed with RN, he is still pacing a lot. He is agreeable to going back to [facility] or inpatient psychiatry at [place]. Hospital Course 71 year-old male initially admitted to [facility] for bipolar. Patient was sent to the hospital for urinary retention. He was sent back with a Amos catheter. However [facility] would not except him with a Amos catheter. Patient was readmitted to the hospital. Evaluation and treatment course detailed below: Reported Suicidality. Depression History of bipolar Psychiatry initial consult note noted. He is on trazodone. --Patient is medically cleared for discharge to either [facility] or inpatient psychiatry here at [place] to continue treatment. Hyponatremia. Most likely subacute. Possibly secondary to antipsychotics. Appear to be stable. Urinary retention. Patient is unsure whether or not he has had prostate problems. He returned with a Amos catheter in place. BPH is very common in his age group. He was started on Flomax and Amos catheter discontinued. Retention resolved and he has been voiding spontaneously. He will continue Flomax and follow-up outpatient. Suspected chronic kidney disease. Renal functions are significantly improved. Outpatient follow-up is advised. Constipation: He responded to milk of magnesia. Continue stool softeners and laxatives as needed. The patient is medically cleared to be discharged to psychiatry. Pt Condition on Discharge: Good Discharge Disposition: Disc to Psych Care Fac Discharge Time: > 30 minutes Discharge Instructions DIET: Follow Instructions for: As Tolerated, No Restrictions Activities you can perform: Regular-No Restrictions Follow up Referrals: PCP Follow-up - 2 Weeks Urology - 2 Weeks New Medications: Sennosides-Docusate Sodium (Senna Plus 8.6-50 mg) 1 Tab Tab 1 TAB PO BID #60 TAB Tamsulosin (Flomax) 0.4 Mg Cap 0.4 MG PO DAILY #30 CAP Trazodone (Trazodone) 50 Mg Tab 50 MG PO HS PRN INSOMNIA #30 TAB ([Lactulose Liq]) 30 ML SYRP 30 ML PO DAILY PRN SEVERE CONSITIPATION Days 30 ML Discontinued Medications: Buspirone (Buspirone) 15 Mg Tab 15 MG PO TID Anxiety Ref 0 TAB Mirtazapine (Mirtazapine) 15 Mg Tab 15 MG PO HS Depression Control Ref 0 TAB Quetiapine (Quetiapine) 300 Mg Tab 300 MG PO DAILY Ref 0 TAB Quetiapine (Quetiapine) 300 Mg Tab 600 MG PO HS Ref 0 TAB Quetiapine (Seroquel) 50 Mg Tab 50 MG PO DAILY Ref 0 TAB Karla Hernandez MD Dec 19, 2016 12:58
[2016-12-19 15:37] VITALS: BP 143/73; PULSE 83; RESP 18; TEMP 96.8; O2SAT 94
[2016-12-19 20:00] VITALS: BP_SYST 130; BP_SYST 98; BP_DIAS 60; BP_DIAS 78; PULSE 63; PULSE 84; RESP 20; TEMP 96.6; TEMP 96.9; O2SAT 96; O2SAT 97
[2016-12-20] MEDS: traZODone HCL 50 MG TAB PO PRN (00:17)
[2016-12-20] MEDS: SODIUM CHLOR 0.9% 1000 ML INJ 1,000 ML IV SCH ×2 (03:30→11:36)
[2016-12-20 04:00] VITALS: BP 129/66; PULSE 65; RESP 20; TEMP 96.4; O2SAT 98
[2016-12-20 08:00] VITALS: BP 127/67; PULSE 60; RESP 17; TEMP 96.2; O2SAT 100
[2016-12-20] MEDS: SODIUM CHLORIDE 0.9% FLUSH 10 ML FLUSH IV FLUSH SCH ×2 (08:12→21:00)
[2016-12-20] MEDS: DOCUSATE SODIUM 50 MG/SENNA 8.6 MG TAB PO SCH ×2 (08:12→21:10)
[2016-12-20] MEDS: TAMSULOSIN HCL 0.4 MG CAP PO SCH (08:12)
[2016-12-20 12:00] VITALS: BP 131/63; PULSE 72; RESP 22; TEMP 96.3; O2SAT 98
--- NOTE | 2016-12-20 12:49 | HHI.PR ---
Subjective Remarks Follow-up for urinary retention. The patient reports he is voiding spontaneously. He isn't tolerating oral intake. He has been ambulating. He continues to express depressed and suicidal thoughts. He is oriented to person , place, and time. Discussed with RN and the patient, awaiting transfer to [facility] when available. Objective Vitals Vital Signs Date Time Temp Pulse Resp B/P Pulse Ox O2 Delivery O2 Flow Rate FiO2 12/20/16 12:00 96.3 72 22 131/63 98 12/20/16 08:00 96.2 60 17 127/67 100 12/20/16 04:00 96.4 65 20 129/66 98 12/19/16 20:00 96.9 63 20 98/60 96 12/19/16 15:37 96.8 83 18 143/73 94 I/O 12/19/16 12/19/16 12/19/16 12/20/16 12/20/16 12/20/16 07:00 15:00 23:00 07:00 15:00 23:00 Intake Total 1450 ml 1180 ml 720 ml 1000 ml Output Total 1000 ml 150 ml 1460 ml Balance 450 ml 1030 ml -740 ml 1000 ml Intake Oral 650 ml 480 ml 720 ml IV Total 800 ml 700 ml 1000 ml Output Urine Total 1000 ml 150 ml 1460 ml Bladder Scan Volume Amount 300 ml # Bowel Movements 0 0 Result Diagram: 12/17/16 0750 12/17/16 0750 Objective Remarks GENERAL: Well-developed well-nourished. In no acute distress. Oriented to person, place, and time. SKIN: Warm and dry. No lesions noted. HEENT: Normocephalic. Pupils equal and round. Mucous membranes pink and moist. CARDIOVASCULAR: Regular rate and rhythm. No murmur appreciated. RESPIRATORY: No accessory muscle use. Clear to auscultation. Breath sounds equal bilaterally. GASTROINTESTINAL: Abdomen soft, non-tender, nondistended. Bowel sounds x4. MUSCULOSKELETAL: No obvious deformities. No clubbing or cyanosis. No edema. NEUROLOGICAL: Awake and alert. Gait appears normal. Moves upper and lower extremities spontaneously. Normal speech. PSYCHIATRIC: Depressed mood and affect; insight and judgment fair to normal. Expresses SI. Procedures None A/P Problem List: (1) Dementia in other diseases classified elsewhere with behavioral disturbance ICD Code: F02.81 Status: Acute (2) Urinary retention ICD Code: R33.9 Status: Resolved Assessment and Plan 71 year-old male initially admitted to [facility] for bipolar. Patient was sent to the hospital for urinary retention. He was sent back with a Amos catheter. However [facility] would not except him with a Amos catheter. Patient was readmitted to the hospital. Evaluation and treatment course detailed below: Reported Suicidality. Depression History of bipolar Psychiatry initial consult note noted. He is on trazodone. --Patient is medically cleared for discharge to either [facility] or inpatient psychiatry here at [place] to continue treatment. Hyponatremia. Most likely subacute. Possibly secondary to antipsychotics. Improved since admission and appears to be stable. Urinary retention. Patient is unsure whether or not he has had prostate problems. He returned with a Amos catheter in place. BPH is very common in his age group. He was started on Flomax and Amos catheter discontinued. Retention resolved and he has been voiding spontaneously. He will continue Flomax and follow-up outpatient. Suspected chronic kidney disease. Renal functions are significantly improved. Outpatient follow-up is advised. Vitamin D deficiency: Vitamin D level low, start replacement. Discharge Planning The patient is medically clear for discharge to psychiatry. Ministerio De Leon Dec 20, 2016 12:49
[2016-12-20] MEDS ORDERED: CHOL5000 PO (12:50)
--- NOTE | 2016-12-20 14:46 | HHI.PYPN ---
Subjective Remarks Patient was seen today for psychiatric reevaluation, he was previously seen by Dr. Pompa, the Patient was reviewed, today patient is found in his room, restless, walking around the room, Disorganized, talking to himself, perseverant. He is oddly related, when he is asked about the reason of his hospitalization he says that he has been depressed and wanted to commit suicide. However, patient does not elaborate about his feelings of depression, source of depression and suicidal ideation. He has ambivalent suicidal ideation at this moment, no plan. Patient is oriented 3. Compliant with medications, no significant side effects. As per nurses patient has been acting bizarre, agitated, but not aggressive and redirectable. Review of Systems Other No somatic complaints Objective Alert: Yes Independence: Person, Place, Date Mood: Agitated Affect: Labile Memory Intact: Immediate Hallucinations: Other (he denies) Delusions: No Delusion Type: Other (not elicited) Suicidal: Ideation (ambivalent suicidal ideation, no plan) Homicidal: Ideation (no HI) Insight/Judgment Poor Vitals/IOs Vital Signs Date Time Temp Pulse Resp B/P Pulse Ox O2 Delivery O2 Flow Rate FiO2 12/20/16 12:00 96.3 72 22 131/63 98 12/16/16 08:10 Room Air Intake and Output 12/19/16 12/19/16 12/20/16 08:00 16:00 00:00 Intake Total 1450 ml 1420 ml 480 ml Output Total 1000 ml 150 ml 1460 ml Balance 450 ml 1270 ml -980 ml Assessment & Plan Problem List: (1) 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 No changes in psychotropics. As per primary medical team, patient will be transferred back to [facility]. ICD Code: F02.81 Assessment & Plan Estimated LOS: days Justification for Cont. Inpt. Patient will be transferred back to [facility] to continue psychiatric admission. Aidan Ohara MD Dec 20, 2016 14:46
[2016-12-20 16:00] VITALS: BP 132/66; PULSE 70; RESP 26; TEMP 96.6; O2SAT 98
[2016-12-21] MEDS ORDERED: CHOLECALCIFEROL (VIT D3) 5000 UNIT CAP PO SCH (09:00)
== END 2016-12-20 21:23 ==
LOC: NEPD 19:03 → INTOOBSV 12-16 11:54 → NEDA 12-16 11:54 → N05B 12-16 18:33
PROVIDERS: ADMIT Hospitalist; ATTEND Hospitalist
DX: R45.851 Suicidal ideations (principal); R45.1 Restlessness and agitation; F02.81 Dementia in other diseases classified elsewhere, unspecified severity, with behavioral disturbance; R33.9 Retention of urine, unspecified; R30.0 Dysuria; E87.1 Hypo-osmolality and hyponatremia; K59.00 Constipation, unspecified; R94.31 Abnormal electrocardiogram [ECG] [EKG]; F31.9 Bipolar disorder, unspecified; F41.9 Anxiety disorder, unspecified; Z79.899 Other long term (current) drug therapy
CPT/HCPCS: 80053; 80061; 80307; 81001; 82306; 82607; 83036; 84443; 85025; 93005; 97166; 99285; G0378; G8987; G8988; G8989; J7030

== ENCOUNTER 2016-12-20 21:30 | Inpatient (IN) | payer OTHER, MEDICARE ==
[~2016-12-20] VITALS: Ht 177.8 cm; Wt 59.1 kg
[~2016-12-20 21:30] MED LIST changes: +CHOL5000 PO; +Lactulose Liq PO; +SENN1TAB PO; +TAMS5CAP PO; +TRAZ50TA12 PO
[2016-12-20] MEDS ORDERED: LORazepam 2 MG/ML VIAL IV PUSH PRN ×4 (22:15)
[2016-12-20] MEDS ORDERED: diphenhydrAMINE HCL 50 MG CAP PO PRN (22:15)
[2016-12-20] MEDS ORDERED: ACETAMINOPHEN 325 MG TAB PO PRN (22:15)
[2016-12-20] MEDS ORDERED: FLUMAZENIL 0.5 MG/5 ML VIAL IV PUSH PRN (22:15)
[2016-12-20] MEDS ORDERED: diphenhydrAMINE HCL 50 MG/ML VIAL IM PRN (22:15)
[2016-12-20] MEDS ORDERED: LORazepam 2 MG TAB PO PRN (22:15)
[2016-12-20] MEDS ORDERED: LORazepam 1 MG TAB PO PRN (22:15)
[2016-12-20] MEDS ORDERED: LACTULOSE SYRUP 20 GM/30 ML CUP PO PRN (22:15)
[2016-12-20 22:18] VITALS: BP 118/58; PULSE 61; RESP 18; TEMP 97.5; O2SAT 98
[2016-12-20] MEDS: hydrOXYzine HCL 50 MG TAB PO PRN (23:25)
[2016-12-21 05:24] VITALS: BP 113/53; PULSE 50; RESP 19; TEMP 97.6; O2SAT 99
[2016-12-21 06:29] VITALS: BP 113/53; PULSE 50; RESP 19; TEMP 97.6; O2SAT 99
[2016-12-21] MEDS: TAMSULOSIN HCL 0.4 MG CAP PO SCH (08:42)
[2016-12-21] MEDS: DOCUSATE SODIUM 50 MG/SENNA 8.6 MG TAB PO SCH ×2 (08:42→21:44)
[2016-12-21] MEDS: THIAMINE HCL 100 MG TAB PO SCH (08:42)
[2016-12-21] MEDS: CHOLECALCIFEROL (VIT D3) 5000 UNIT CAP PO SCH (08:43)
[2016-12-21] MEDS: FOLIC ACID 1 MG TAB PO SCH (08:43)
[2016-12-21] MEDS: NICOTINE 21 MG/24 HR PATCH T-DERMAL SCH (08:44)
[2016-12-21 08:49] LABS: AUTOMATED NEUTROPHIL # 4.1 TH/MM3 (1.8-7.7); BASOPHIL % 0.6 % (0.0-2.0); EOSINOPHIL # 0.1 TH/MM3 (0-0.4); EOSINOPHIL % 1.3 % (0.0-4.0); HEMATOCRIT 29.5 % (39.0-51.0); HEMO FLAGS DIFF FINAL; LYMPH % 17.6 % (9.0-44.0); MEAN CORPUSCULAR HEMOGLOBIN 27.9 PG (27.0-34.0); MONO % 7.4 % (0.0-8.0); NEUT % 73.1 % (16.0-70.0); PLATELET COUNT 210 TH/MM3 (150-450); RED BLOOD COUNT 3.59 MIL/MM3 (4.50-5.90); RED CELL DISTRIBUTION WIDTH 14.8 % (11.6-17.2); WHITE BLOOD COUNT 5.7 TH/MM3 (4.0-11.0)
[2016-12-21] MEDS: REMOVE OLD PATCH T-DERMAL SCH (08:49)
[2016-12-21 09:05] LABS: ANION GAP 7 MEQ/L (5-15); BICARBONATE 27.1 MEQ/L (21.0-32.0); BLOOD UREA NITROGEN 18 MG/DL (7-18); CHLORIDE 94 MEQ/L (98-107); POTASSIUM 4.3 MEQ/L (3.5-5.1); SODIUM (NA) 128 MEQ/L (136-145)
[2016-12-21 09:10] LABS: AST (GOT) 17 U/L (15-37); GLOMERULAR FILTRATION RATE 63 ML/MIN (>89)
[2016-12-21 09:13] LABS: ALKALINE PHOSPHATASE 47 U/L (45-117); ALT (GPT) 23 U/L (12-78); LDL CHOLESTEROL 63 MG/DL (0-99); TOTAL BILIRUBIN ADULT 0.8 MG/DL (0.2-1.0)
--- NOTE | 2016-12-21 12:55 | HHI.HP ---
Provisional Diagnosis Admission Date Dec 20, 2016 at 21:30 Arverne I. 1. Schizoaffective disorder, bipolar type Arverne II. Deferred Arverne V. GAF is 30 presently Certification of Person's Competence To Provide Express and Informed Consent I have personally examined Tyler Catherine , a person being served at [facility] on, Dec 21, 2016 12:55. Express and informed consent means consent voluntarily given in writing, by a competent person, after sufficient explanation and disclosure of the subject matter involved to enable the person to make a knowing and willful decision without any element of force, fraud, deceit, duress, or other form of constraint or coercion. This person is 18 years of age or older, is not now known to be incompetent to consent to treatment with a guardian advocate, and does not have a health care surrogate or proxy currently making medical treatment decisions. I have found this person to be one of the following: [x] Competent to provide express and informed consent, as defined above, for voluntary admission to this facility and is competent to provide express and informed consent for treatment. He/she has the consistent capacity to make well reasoned, willful, and knowing decisions concerning his or her medical or mental health treatment. The person fully and consistently understands the purpose of the admission for examination/placement and is fully capable of personally exercising all rights assured under [place] Incompetent to provide express and informed consent to voluntary admission, and this is incompetent to provide express and informed consent to treatment. The person must be transferred to involuntary status and a petition for a guardian advocate filed with the Circuit Court. [] Refusing to provide express and informed consent to voluntary admission but is competent to provide express and informed consent for treatment. The person must be discharged or transferred to involuntary status. Form shall be completed within 24 hours of a person's arrival at the receiving facility and filed in the clinical record of each person: 1. Admitted on a voluntary basis 2. Permitted to provide express and informed consent to his/her own treatment 3. Allowed to transfer from involuntary to voluntary status 4. Prior to permitting a person to consent to his or her own treatment after having been previously found incompetent to consent to treatment. History of Present Illness Capacity: Has Capacity HPI Mr. Catherine is a 71-year-old male with a reported history of depression and anxiety and a chart history of schizoaffective disorder who presented initially in transfer from [facility] under a [place] [facility] alleging suicidal ideation. He was found to be in urinary retention and was medically admitted where he was seen in consultation by Dr. Pompa and Dr. Ohara. Reviewing the electronic medical record, I note that the patient was psychiatrically admitted here most recently under Dr. Batista in 2003. Patient seen and examined. Chart reviewed. Case discussed with nursing staff. On my examination today, the patient has prominent orofacial dyskinesias. He is a somewhat vague historian. He does complain of poor sleep and says "my balls weren't working right and my peeing [wasn't working right]." With questioning, patient initially endorses suicidal ideation but then says "never mind that!" He alludes to possibly drinking bleach once when asked about suicide plan. He endorses some low mood currently as well as feelings of hopelessness and worthlessness in addition to the poor sleep. He does not describe any AVH, nor can I elicit any brianna delusions, although he may be a little guarded. He does endorse a history of manias in the past but has no hypomanic/manic symptoms now. He denies any HI. The remainder of the psychiatric ROS is negative. The patient is willing to remain on the unit for further treatment. Past psychiatric history: The patient endorses a history of depression and anxiety. He has followed up psychiatrically on an outpatient basis at [facility] in the past. He says that his most recent psychiatric admission was about 12 years ago, and he says this was for "anxiety." He endorses a history of suicide attempts by overdose and also drank bleach once. He reports good response previously to Seroquel and Risperdal. Family history: The patient denies any family history of mental illness. Chemical dependency history: The patient endorses a history of heavy drinking but denies any recent abuse of drugs or alcohol. Social history: The patient is originally from [place] although he spent much of his adult life in [place] in [place]. He most recently resided in a [facility] in [place] he tells me. 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 He is single with no children. He denies any history. He does endorse a history of remote legal problems in connection with his involvement in the New Left movement in college in the 1960s and s. He denies more recent legal issues. He denies any access to guns or firearms. He is a [employer]. He denies any history of psychological trauma or abuse. Review of Systems ROS Limitations: Poor Historian Except as stated in HPI: all other systems reviewed are Neg Past Psych History Psychological trauma history See above Violence risk - others (6 mos) Suspect lower risk. Denies homicidal ideation presently. No evidence of any psychotic or other mental illness process that might confer risk for violence. Violence risk - self (6 mos) Concern for elevated risk. Patient is ambivalent regarding current suicidal ideation. He endorses a history of suicide attempts. Substance Abuse History Drugs/Alcohol past 12 months See above Past Family Social History Coded Allergies: Depakote (Verified Allergy, Severe, 02/01/04) Zyprexa (Verified Allergy, Severe, 02/01/04) Ritalin (Verified Allergy, Unknown, 12/15/16) Past Medical History Includes a history of urinary retention. See electronic medical record. Active Scripts Cholecalciferol (Vitamin D3)5,000 Unit Cap5,000 Units PO DAILY #30 CAP Prov:Ministerio De Leon 12/20/16 Trazodone 50 Mg Tab50 Mg PO HS PRN (INSOMNIA) #30 TAB Prov:Karla Hernandez MD 12/19/16 Tamsulosin (Flomax)0.4 Mg Cap0.4 Mg PO DAILY #30 CAP Prov:Karla Hernandez MD 12/19/16 [Lactulose] (Lactulose Liq)30 ML SYRP No Conflict Check30 Ml PO DAILY PRN ( SEVERE CONSITIPATION) 30 Days Prov:Karla Hernandez MD 12/19/16 Sennosides-Docusate Sodium (Senna Plus 8.6-50 mg)1 Tab Tab1 Tab PO BID #60 TAB Prov:Karla Hernandez MD 12/19/16 Discontinued Reported Medications Quetiapine (Seroquel)50 Mg Tab50 Mg PO DAILY Ref 0 12/15/16 Buspirone 15 Mg Tab15 Mg PO TID Ref 0 12/15/16 Mirtazapine 15 Mg Tab15 Mg PO HS Ref 0 12/15/16 Quetiapine 300 Mg [id number] Mg PO HS Ref 0 12/15/16 Quetiapine 300 Mg [id number] Mg PO DAILY Ref 0 12/15/16 Current Medications Medications (Trade) Dose Ordered Sig/Kerry Route Start Time Stop Time Status Last Admin (Benadryl) 25 mg Q6H PRN PO 12/20/16 22:15 (Benadryl Inj) 25 mg Q6H PRN IM 12/20/16 22:15 (Tylenol) 650 mg Q4H PRN PO 12/20/16 22:15 (Milk Of Magnesia Liq) 30 ml DAILY PRN PO 12/20/16 22:15 (Mag-Al Plus Susp Liq) 30 ml Q6H PRN PO 12/20/16 22:15 (Habitrol 21 Mg Patch.24 Hr) 1 patch DAILY T-DERMAL 12/21/16 09:00 (Atarax) 25 mg Q6H PRN PO 12/20/16 22:15 12/20/16 23:25 (Romazicon Inj) 0.2 mg Q1M PRN IV PUSH 12/20/16 22:15 (Ativan) 1 mg Q4H PRN PO 12/20/16 22:15 12/20/16 23:24 (Ativan Inj) 1 mg Q4H PRN IV PUSH 12/20/16 22:15 (Ativan) 2 mg Q2H PRN PO 12/20/16 22:15 (Ativan Inj) 2 mg Q2H PRN IV PUSH 12/20/16 22:15 (Ativan Inj) 2 mg Q1H PRN IV PUSH 12/20/16 22:15 (Ativan Inj) 2 mg Q15M PRN IV PUSH 12/20/16 22:15 Miscellaneous Information 1 DAILY T-DERMAL 12/21/16 09:00 (Vitamin B1) 100 mg DAILY PO 12/21/16 09:00 12/21/16 08:42 (Folate) 1 mg DAILY PO 12/21/16 09:00 12/21/16 08:43 (Vitamin D3) 5,000 units DAILY PO 12/21/16 09:00 12/21/16 08:43 (Morenita-Colace) 1 tab BID PO 12/21/16 09:00 12/21/16 08:42 (Flomax) 0.4 mg DAILY PO 12/21/16 09:00 12/21/16 08:42 (Lactulose Liq) 30 ml DAILY PRN PO 12/20/16 22:15 Family History See above Social History See above Patient's Strengths (min. 2) Intelligent. Verbally fluent. Physical Exam Physical exam was completed by the hospitalist prior to transfer to the inpatient psychiatric unit. On my examination today, the patient appears to be well-nourished and well-developed and in no acute physical distress. He does have the oral facial dyskinesias as I said but no other motoric abnormalities are noted. No signs of withdrawal noted. Laboratories and vitals signs reviewed: Vital Signs Vital Signs Date Time Temp Pulse Resp B/P Pulse Ox O2 Delivery O2 Flow Rate FiO2 12/21/16 06:29 97.6 50 19 113/53 99 Lab Results Item Value Date Time White Blood Count 5.7 TH/MM3 12/21/16 0730 Hemoglobin 10.0 GM/DL L 12/21/16 0730 Platelet Count 210 TH/MM3 12/21/16 0730 Sodium Level 128 MEQ/L L 12/21/16 0730 Potassium Level 4.3 MEQ/L 12/21/16 0730 Chloride Level 94 MEQ/L L 12/21/16 0730 Carbon Dioxide Level 27.1 MEQ/L 12/21/16 0730 Blood Urea Nitrogen 18 MG/DL 12/21/16 0730 Creatinine 1.15 MG/DL 12/21/16 0730 Aspartate Amino Transf (AST/SGOT) 17 U/L 12/21/16 0730 Alanine Aminotransferase (ALT/SGPT) 23 U/L 12/21/16 0730 Alkaline Phosphatase 47 U/L 12/21/16 0730 Vitamin B12 Level 233 PG/ML 12/17/16 0750 25-Hydroxy Vitamin D Total 17.9 ng/ML L 12/17/16 0750 Thyroid Stimulating Hormone 3rd Gen 1.260 uIU/ML 12/17/16 0750 Urine Opiates Screen NEG 12/17/16 0615 Urine Barbiturates Screen NEG 12/17/16 0615 Urine Amphetamines Screen NEG 12/17/16 0615 Urine Benzodiazepines Screen NEG 12/17/16 0615 Urine Cocaine Screen NEG 12/17/16 0615 Urine Cannabinoids Screen NEG 12/17/16 0615 Stable anemia noted. Hyponatremia noted. Improving GFR. Mental Status Examination Patient is in hospital gown. He is fairly well groomed. He is awake and alert and oriented to person, place and date. His registration is 3 out of 3 in his recall is 2 out of 3 at 5 minutes. He is able to do serial sevens with only 1 error, which he self corrects. He is able to name 2 items and repeat a phrase. He is able to name the last several presidents Trkarena through Kael. Motor exam as above. Speech is within normal limits for rate, tone and volume. Language and fund of knowledge seem at least average. Focus and concentration intact. Mood depressed, affect blunted. Thought process linear. No loosening of associations. No evident delusional material. No audiovisual hallucinations. Endorses suicidal ideation with plan as noted above. No urge to hurt himself on the inpatient psychiatric unit. No homicidal ideation. Insight and judgment presently unclear. Assessment & Plan Problem List: (1) Schizoaffective disorder ICD Code: F25.9 Assessment & Plan This is a 71-year-old male with a psychiatric history as detailed above who has been transferred from the medical floor following an episode of urinary retention. Patient has a chart history of schizoaffective disorder and presently endorses low mood as well as some suicidal ideation. I cannot appreciate any evidence of clinically significant cognitive impairment in this patient. Patient is agreeable to remaining on the inpatient unit for further treatment and requires such admission for safety, observation and stabilization. Admit inpatient. Voluntary status. Consult to the hospitalist for hyponatremia , recent retention, and other medical issues. Post void residual. Continue Flomax. Patient has no signs of withdrawal and denies recent EtOH, d/c Ativan and monitor CIWA. Start Seroquel 25mg BID with plans to titrate to effect for mood stabilization; patient is presently hyponatremic but this agent is rarely associated with hyponatremia (<1%). Atarax as needed for anxiety, Benadryl as needed for sleep. PT evaluation and falls precautions. Vitals every shift. Counselor to see. Disposition planning. Estimated length of stay: 7-9 days. Discharge Planning Pending psychiatric stabilization Request HC Surrog/Guard Advoc?: No Problem Qualifiers (1) Schizoaffective disorder: Qualified Code: F25.0 - Schizoaffective disorder, bipolar type Edmond Matamoros MD Dec 21, 2016 12:55
--- NOTE | 2016-12-21 14:36 | PD.TTN ---
Present for Treatment Team Treatment Team Staff: Provider (Dr. Matamoros), Nurse () Patient Problems 1. Discharge planning 2. Medication compliance 3. Knowledge deficit 4. Lack of coping skills Progress Toward Goals Nurse Input: Pt not motivated. Flat depressed affect. Psych Therapist Input: Counselor will encourage pt to be compliant with follow up services when discharged Occupational Therapist Input: New pt. No history yet and no attendance yet for groups. Sarthak Montejo Jr, G[employer] LOAD DISPATCHER Dec 21, 2016 14:36
[2016-12-21 15:35] VITALS: BP 110/53; PULSE 65; RESP 18; TEMP 97.7; O2SAT 99
--- NOTE | 2016-12-21 17:35 | PD.CONS ---
HPI Service [facility] Consult Requested By Reason for Consult medical management Primary Care Physician Unknown Diagnoses: History of Present Illness patient admitted for dementia with behavioral disturbances. History of depression. during hospital stay on medical floor- acute urinary retention. Bray placed and removed yesterday with flomax started now states voiding freely but has incomplete bladder emptying sensation patient very anxious Review of Systems Constitutional: DENIES: Diaphoretic episodes, Fatigue, Fever, Weight gain, Weight loss, Chills, Dizziness, Change in appetite, Night Sweats Endocrine: DENIES: Heat/cold intolerance, Polydipsia, Polyuria, Polyphagia Eyes: DENIES: Blurred vision, Diplopia, Eye inflammation, Eye pain, Vision loss , Photosensitivity, Double Vision Ears, nose, mouth, throat: DENIES: Tinnitus, Hearing loss, Vertigo, Nasal discharge, Oral lesions, Throat pain, Hoarseness, Ear Pain, Running Nose, Epistaxis, Sinus Pain, Toothache, Odynophagia Respiratory: DENIES: Apneas, Cough, Snoring, Wheezing, Hemoptysis, Sputum production, Shortness of breath Cardiovascular: DENIES: Chest pain, Palpitations, Syncope, Dyspnea on Exertion , PND, Lower Extremity Edema, Orthopnea, Claudication Gastrointestinal: DENIES: Abdominal pain, Black stools, Bloody stools, Constipation, Diarrhea, Nausea, Vomiting, Difficulty Swallowing, Anorexia Genitourinary: COMPLAINS OF: Urgency Musculoskeletal: DENIES: Joint pain, Muscle aches, Stiffness, Joint Swelling, Back pain, Neck pain Integumentary: DENIES: Abnormal pigmentation, Nail changes, Pruritus, Rash Hematologic/lymphatic: DENIES: Bruising, Lymphadenopathy Immunologic/allergic: DENIES: Eczema, Urticaria Neurologic: DENIES: Abnormal gait, Headache, Localized weakness, Paresthesias, Seizures, Speech Problems, Tremor, Poor Balance Psychiatric: COMPLAINS OF: Anxiety Past Family Social History Allergies: Coded Allergies: Depakote (Verified Allergy, Severe, 02/01/04) Zyprexa (Verified Allergy, Severe, 02/01/04) Ritalin (Verified Allergy, Unknown, 12/15/16) Physical Exam Vital Signs Vital Signs Date Time Temp Pulse Resp B/P Pulse Ox O2 Delivery O2 Flow Rate FiO2 12/21/16 15:35 97.7 65 18 110/53 99 12/21/16 06:29 97.6 50 19 113/53 99 12/21/16 05:24 97.6 50 19 113/53 99 12/20/16 22:18 97.5 61 18 118/58 98 Physical Exam GENERAL: This is a well-nourished, well-developed patient, in no apparent distress. SKIN: No rashes, ecchymoses or lesions. Cool and dry. HEAD: Atraumatic. Normocephalic. No temporal or scalp tenderness. EYES: Pupils equal round and reactive. Extraocular motions intact. No scleral icterus. No injection or drainage. ENT: Nose without bleeding, purulent drainage or septal hematoma. Throat without erythema, Airway patent. NECK: Trachea midline. No JVD or lymphadenopathy. Supple, nontender, no meningeal signs. CARDIOVASCULAR: Regular rate and rhythm without murmurs, gallops, or rubs. RESPIRATORY: Clear to auscultation. Breath sounds equal bilaterally. No wheezes , rales, or rhonchi. GASTROINTESTINAL: Abdomen soft, non-tender,bladder not distended No guarding.. No joint tenderness, effusion, or edema noted. No calf tenderness. Negative Homans sign bilaterally. NEUROLOGICAL: Awake and alert. Cranial nerves II through XII intact. Motor and sensory grossly within normal limits. Five out of 5 muscle strength in all muscle groups. Normal speech.gait steady Laboratory Laboratory Tests Test 12/21/16 07:30 White Blood Count 5.7 Red Blood Count 3.59 Hemoglobin 10.0 Hematocrit 29.5 Mean Corpuscular Volume 82.0 Mean Corpuscular Hemoglobin 27.9 Mean Corpuscular Hemoglobin 34.0 Concent Red Cell Distribution Width 14.8 Platelet Count 210 Mean Platelet Volume 8.4 Neutrophils (%) (Auto) 73.1 Lymphocytes (%) (Auto) 17.6 Monocytes (%) (Auto) 7.4 Eosinophils (%) (Auto) 1.3 Basophils (%) (Auto) 0.6 Neutrophils # (Auto) 4.1 Lymphocytes # (Auto) 1.0 Monocytes # (Auto) 0.4 Eosinophils # (Auto) 0.1 Basophils # (Auto) 0.0 CBC Comment DIFF FINAL Differential Comment Sodium Level 128 Potassium Level 4.3 Chloride Level 94 Carbon Dioxide Level 27.1 Anion Gap 7 Blood Urea Nitrogen 18 Creatinine 1.15 Estimat Glomerular Filtration 63 Rate Random Glucose 79 Calcium Level 9.5 Total Bilirubin 0.8 Aspartate Amino Transf 17 (AST/SGOT) Alanine Aminotransferase 23 (ALT/SGPT) Alkaline Phosphatase 47 Total Protein 6.8 Albumin 3.7 Triglycerides Level 54 Cholesterol Level 168 LDL Cholesterol 63 HDL Cholesterol 94.0 Cholesterol/HDL Ratio 1.78 Result Diagram: 12/21/1672912/21/16729 Assessment and Plan Assessment and Plan 71 year-old male initially admitted to [facility] for [facility]. Patient was sent to the hospital for urinary retention. He was sent back with a Bray catheter. However [facility] would not except him with a Bray catheter. Patient was readmitted to the hospital. Evaluation and treatment course detailed below: Depression History of bipolar Psychiatry ff Hyponatremia. Most likely subacute. Possibly secondary to antipsychotics. continue to monitor S/P Acute Urinary retention. started on Flomax.- bray removed 12/20 per patient voiding- but with incomplete emptying sensation- bladder not distended - d/w staff- straight cath if no voiding in 6 hours and document output patient refused to have bray place but agreed to straight cath Suspected chronic kidney disease. Renal functions are significantly improved. Outpatient follow-up is advised. Vitamin D deficiency: Vitamin D level low, start replacement. ADD: patient voided freely about 125 cc straight cath post- voiding- 0. Yunior Bruce MD Dec 21, 2016 17:35
[2016-12-21] MEDS: hydrOXYzine HCL 50 MG TAB PO PRN (18:49)
[2016-12-21 19:02] LABS: HEMOGLOBIN A1a 1.2 %; HEMOGLOBIN A1b 1.5 %; HEMOGLOBIN Ao 85.7 %; HEMOGLOBIN LA1C 1.7 %; HEMOGLOBIN P3 3.8 %
[2016-12-21] MEDS: QUEtiapine FUMARATE 25 MG TAB PO SCH (21:44)
[2016-12-22] MEDS: hydrOXYzine HCL 50 MG TAB PO PRN ×2 (03:36→15:02)
[2016-12-22 05:43] VITALS: BP 119/59; PULSE 61; RESP 16; TEMP 97.6; O2SAT 97
[2016-12-22] MEDS: TAMSULOSIN HCL 0.4 MG CAP PO SCH (08:47)
[2016-12-22] MEDS: THIAMINE HCL 100 MG TAB PO SCH (08:47)
[2016-12-22] MEDS: QUEtiapine FUMARATE 25 MG TAB PO SCH ×2 (08:48→20:22)
[2016-12-22] MEDS: CHOLECALCIFEROL (VIT D3) 5000 UNIT CAP PO SCH (08:48)
[2016-12-22] MEDS: FOLIC ACID 1 MG TAB PO SCH (08:48)
[2016-12-22] MEDS: DOCUSATE SODIUM 50 MG/SENNA 8.6 MG TAB PO SCH ×2 (09:00→20:21)
[2016-12-22] MEDS: NICOTINE 21 MG/24 HR PATCH T-DERMAL SCH (09:00)
[2016-12-22] MEDS: REMOVE OLD PATCH T-DERMAL SCH (09:00)
[2016-12-22 10:13] LABS: BICARBONATE 26.5 MEQ/L (21.0-32.0); POTASSIUM 4.2 MEQ/L (3.5-5.1)
--- NOTE | 2016-12-22 11:37 | HHI.PYPN ---
Subjective Remarks Patient seen and examined. Chart reviewed. Case discussed with nursing staff who reports that the patient voided 850 cc. Patient has been no behavioral problem per nurse. On my examination today, patient continues to display facial dyskinesias. He is somewhat fretful and anxious and says that he feels "real confused" although he is fully oriented on direct questioning and there is no evidence of attention/concentration deficit. He denies any SI or HI today. Denies any AVH. Says that he is tolerating the Seroquel well without side effects. Complains of some mild pelvic pain but otherwise no physical complaints. Counselor later tells me that patient was reporting to her some tactile hallucinations, possibly with some associated paranoia. Review of Systems ROS Limitations: Poor Historian Except as stated in HPI: all other systems reviewed are Neg Objective Alert: Yes [place]: Person, Place, Date Mood: Anxious Affect: Blunted Memory Intact: Comment (not formally assessed today) Hallucinations: Other (Denies AVH to me) Delusions: No Delusion Type: Other (No delusions for me.) Suicidal: Ideation (No SI) Homicidal: Ideation (No HI) Insight/Judgment Poor Remarks No new motor abnormalities noted. Still has grimacing/facial dyskinesias. Labs Test 12/22/16 08:30 Sodium Level 125 MEQ/L Potassium Level 4.2 MEQ/L Chloride Level 91 MEQ/L Carbon Dioxide Level 26.5 MEQ/L Anion Gap 8 MEQ/L Blood Urea Nitrogen 20 MG/DL Creatinine 1.24 MG/DL Estimat Glomerular Filtration 58 ML/MIN Rate Random Glucose 122 MG/DL Calcium Level 9.9 MG/DL Labs reviewed. Worsened hyponatremia noted. Vitals/IOs Vital Signs Date Time Temp Pulse Resp B/P Pulse Ox O2 Delivery O2 Flow Rate FiO2 12/22/16 05:43 97.6 61 16 119/59 97 Assessment & Plan Problem List: (1) Schizoaffective disorder ICD Code: F25.9 Assessment & Plan D/w Dr. Bruce re: worsening hyponatremia. She will come to see him for this issue. I will titrate Seroquel to 50mg BID as I suspect patient is experiencing ongoing symptoms, especially based on counselor report. We will follow sodium closely; check a BMP in the morning. Continue other medications and care as ordered. Justification for Cont. Inpt. Complicating conditions. Medication changes in process. High risk for decompensation in a less restrictive environment. Discharge Planning Pending psychiatric stabilization Request HC Surrog/Guard Advoc?: No Problem Qualifiers (1) Schizoaffective disorder: Qualified Code: F25.0 - Schizoaffective disorder, bipolar type Edmond Matamoros MD Dec 22, 2016 11:37
[2016-12-22 18:15] VITALS: BP 116/61; PULSE 83; RESP 18; TEMP 97.6; O2SAT 98
--- NOTE | 2016-12-22 18:20 | HHI.PR ---
Subjective Remarks patient up and ambulating around the hallway denies any pain states he voidied freely 2x - confirmed by staff nurse denies any abdominal pain, nausea or vomiting "food is good" Objective Vitals Vital Signs Date Time Temp Pulse Resp B/P Pulse Ox O2 Delivery O2 Flow Rate FiO2 12/22/16 05:43 97.6 61 16 119/59 97 I/O 12/21/16 12/21/16 12/21/16 12/22/16 12/22/16 12/22/16 07:00 15:00 23:00 07:00 15:00 23:00 Output Total 350 ml Balance -350 ml Output Urine Total 350 ml Result Diagram: 12/21/16 0730 12/22/16 0830 Objective Remarks awake and alert lungs clear regular rhythm abdomen- no distention, good bowel sounds extremities no edema gait steady A/P Assessment and Plan 71 year-old male initially admitted [facility]. Patient was sent to the hospital for urinary retention. He was sent back with a Bray catheter. However [facility] would not except him with a Bray catheter. Patient was readmitted to the hospital. Depression History of bipolar Psychiatry ff Hyponatremia. chronic. euvolemic - recheck in am -TSH normal. No signs of fluid excess. - ff BMP- if creatinine increase will need IVF S/P Acute Urinary retention. started on Flomax.- bray removed 12/20 voiding freely- confirmed by staff Suspected chronic kidney disease. Renal functions are significantly improved. Outpatient follow-up is advised. Vitamin D deficiency: Vitamin D level low, on replacement. Yunior Bruce MD Dec 22, 2016 18:20
[2016-12-23 05:30] VITALS: BP 123/65; PULSE 65; RESP 18; TEMP 97.8; O2SAT 99
[2016-12-23] MEDS: CHOLECALCIFEROL (VIT D3) 5000 UNIT CAP PO SCH (08:38)
[2016-12-23] MEDS: TAMSULOSIN HCL 0.4 MG CAP PO SCH (08:38)
[2016-12-23] MEDS: THIAMINE HCL 100 MG TAB PO SCH (08:39)
[2016-12-23] MEDS: QUEtiapine FUMARATE 25 MG TAB PO SCH ×2 (08:39→20:38)
[2016-12-23] MEDS: FOLIC ACID 1 MG TAB PO SCH (08:39)
[2016-12-23] MEDS: DOCUSATE SODIUM 50 MG/SENNA 8.6 MG TAB PO SCH ×2 (08:39→20:38)
[2016-12-23] MEDS: NICOTINE 21 MG/24 HR PATCH T-DERMAL SCH (08:42)
[2016-12-23] MEDS: REMOVE OLD PATCH T-DERMAL SCH (08:42)
[2016-12-23] MEDS: hydrOXYzine HCL 50 MG TAB PO PRN (09:00)
--- NOTE | 2016-12-23 11:36 | HHI.PYPN ---
Subjective Remarks Patient seen and examined. Chart reviewed. Case discussed with nursing staff reports that the patient is quite anxious and fidgety. On my examination today , the patient remains fairly anxious. Thoughts seem a little scattered. He asks me, "Just ride with me. I'm trying to adjust. Right now I would be at groups, but there are unfamiliar people." Perhaps some mild paranoia. Denies SI/HI. Denies side effects from medications and says that he previously has taken quite a bit more Seroquel. No physical complaints. Review of Systems ROS Limitations: Poor Historian Except as stated in HPI: all other systems reviewed are Neg Objective Alert: Yes [place]: Person, Place, Date Mood: Anxious Affect: Blunted (tending toward flat) Memory Intact: Comment (Fair on clinical exam) Hallucinations: Other (No AVH) Delusions: Yes Delusion Type: Other (perhaps some mild paranoia) Suicidal: Ideation (No SI) Homicidal: Ideation (No HI) Insight/Judgment Fair Remarks Ongoing orofacial dyskinesias, unchanged. No other motor abnormalities noted. TP somewhat circumstantial. Grooming and hygiene fair. Labs Labs reviewed. Hyponatremia improved but GFR decreased on BMP. Vitals/IOs Vital Signs Date Time Temp Pulse Resp B/P Pulse Ox O2 Delivery O2 Flow Rate FiO2 12/23/16 05:30 97.8 65 18 123/65 99 Intake and Output 12/22/16 12/22/16 12/23/16 08:00 16:00 00:00 Output Total 350 ml Balance -350 ml Assessment & Plan Problem List: (1) Schizoaffective disorder ICD Code: F25.9 Assessment & Plan Titrate Seroquel to 75mg BID. Case d/w Dr. Bruce, who recommends IVF and is in agreement with transfer to [facility] for this purpose. Continue other medications and care as ordered. Justification for Cont. Inpt. Complicating conditions, need for IVF. Medication changes in process. Risk for decompensation in a less restrictive environment. Discharge Planning Pending psychiatric stabilization. Request HC Surrog/Guard Advoc?: No Problem Qualifiers (1) Schizoaffective disorder: Qualified Code: F25.0 - Schizoaffective disorder, bipolar type Edmond Matamoros MD Dec 23, 2016 11:36
[2016-12-23 13:42] LABS: BICARBONATE 27.5 MEQ/L (21.0-32.0); POTASSIUM 4.4 MEQ/L (3.5-5.1)
--- NOTE | 2016-12-23 14:46 | HHI.PR ---
Subjective Remarks patient up and ambulating around denies any discomfort states voiding- but hard to determine if patient avoiding topic or being evasive has certain facial expressions/mild stuttering ? basia Objective Vitals Vital Signs Date Time Temp Pulse Resp B/P Pulse Ox O2 Delivery O2 Flow Rate FiO2 12/23/16 05:30 97.8 65 18 123/65 99 12/22/16 18:15 97.6 83 18 116/61 98 I/O 12/22/16 12/22/16 12/22/16 12/23/16 12/23/16 12/23/16 07:00 15:00 23:00 07:00 15:00 23:00 Output Total 350 ml 300 ml Balance -350 ml -300 ml Output Urine Total 350 ml 300 ml Result Diagram: 12/21/1630 12/23/16 1119 Objective Remarks awake and alert lungs clear regular rhythm abdomen- ? bladder distention extremities no edema gait steady A/P Assessment and Plan 71 year-old male [facility]. Patient was sent to the hospital for urinary retention. He was sent back with a Bray catheter. However [facility] would not except him with a Bray catheter. Patient was readmitted to the hospital. Depression History of bipolar Psychiatry ff Hyponatremia. chronic. no signs of volume excess - recheck in am- stabilizing -TSH normal 12/17 labs. - ff BMP- if creatinine increase will need IVF Acute Kidney injury- "increase creatinine again pre renal vs post renal. - clinically appears dry- oral mucosa - get an US of the kidney bladder now - start IVF- NS S/P Acute Urinary retention. started on Flomax.- bray removed 12/20 . we did a postvoiding volume yesterday - 0 patient states voiding - get an ULtrasound now Vitamin D deficiency: Vitamin D level low, on replacement. Yunior Bruce MD Dec 23, 2016 14:46
--- NOTE | 2016-12-23 17:05 | RADRPT ---
EXAM DATE/TIME: 12/23/2016 16:04 [place] COMPARISON: No previous studies available for comparison. INDICATIONS : Increased BUN/creatinine. MEDICAL HISTORY : Dementia. UTI. SURGICAL HISTORY : Appendectomy. ENCOUNTER: Initial ACUITY: 1 day PAIN SCORE: 4/10 LOCATION: Bilateral flank MEASUREMENTS: RIGHT KIDNEY: 11.1 x 4.3 x 3.3 cm LEFT KIDNEY: 11.4 x 4.6 x 5.8 cm FINDINGS: RIGHT KIDNEY: A few tiny cortical cysts are observed measuring approximately 1 cm. Exophytic from the anterolateral aspects of the mid pole is a solid lesion that measures 2.0 x 1.9 x 1.6 cm. No hydronephrosis. LEFT KIDNEY: Renal cortex is normal in thickness and echotexture. No hydronephrosis, stone, or mass. A tiny cyst is seen. BLADDER: Circumferential thickening of the bladder wall. CONCLUSION: 1. Solid lesion involving the midpole the right kidney measuring 2 cm. Further characterization is montez ggested utilizing MRI with gadolinium. 2. No obstruction. 3. Mild circumferential wall thickening of urinary bladder. This could relate to acute cystitis or co uld relate to trabeculation from bladder outlet obstruction. Jc Prescott Jr., MD on December 23, 2016 at 16:59 Board Certified Radiologist. This report was verified electronically.
[2016-12-23] MEDS: SODIUM CHLOR 0.9% 1000 ML INJ 1,000 ML IV SCH (17:40)
[2016-12-23] MEDS: MAGNESIUM HYDROXIDE SUSP 30 ML CUP PO PRN (20:37)
[2016-12-24] MEDS: SODIUM CHLOR 0.9% 1000 ML INJ 1,000 ML IV SCH ×3 (01:16→21:00)
[2016-12-24 06:12] VITALS: BP 104/59; PULSE 44; RESP 17; TEMP 98.6; O2SAT 98
[2016-12-24] MEDS: NICOTINE 21 MG/24 HR PATCH T-DERMAL SCH (09:00)
[2016-12-24] MEDS: DOCUSATE SODIUM 50 MG/SENNA 8.6 MG TAB PO SCH ×2 (09:00→20:27)
[2016-12-24] MEDS: REMOVE OLD PATCH T-DERMAL SCH (09:00)
[2016-12-24] MEDS: TAMSULOSIN HCL 0.4 MG CAP PO SCH (09:05)
[2016-12-24] MEDS: CHOLECALCIFEROL (VIT D3) 5000 UNIT CAP PO SCH (09:05)
[2016-12-24] MEDS: THIAMINE HCL 100 MG TAB PO SCH (09:05)
[2016-12-24] MEDS: FOLIC ACID 1 MG TAB PO SCH (09:05)
[2016-12-24] MEDS: QUEtiapine FUMARATE 25 MG TAB PO SCH ×2 (09:05→20:26)
[2016-12-24] MEDS: MAGNESIUM HYDROXIDE SUSP 30 ML CUP PO PRN (09:06)
[2016-12-24 10:08] VITALS: BP 115/59; PULSE 91; O2SAT 97
[2016-12-24] MEDS: hydrOXYzine HCL 50 MG TAB PO PRN ×2 (10:15→18:03)
[2016-12-24 11:21] LABS: BICARBONATE 26.9 MEQ/L (21.0-32.0); POTASSIUM 4.2 MEQ/L (3.5-5.1)
--- NOTE | 2016-12-24 14:07 | HHI.PYPN ---
Subjective Remarks Patient was seen today for psychiatric evaluation, patient is in his bed, calm, cooperative, but he is oddly related, with periodic involuntary movement of his face, grimacing, and also restless. He reports good mood, but his affect is constricted. Partially oriented in time and place, distant and confused, but no agitation, no aggressive behavior, no paranoia, no delusions. Compliant with medications, no significant side effects reported. Review of Systems Other No somatic complaints Objective Alert: Yes [place]: Person, Place, Date Mood: Anxious Affect: Blunted (tending toward flat) Memory Intact: Comment (Fair on clinical exam) Hallucinations: Other (No AVH) Delusions: Yes Delusion Type: Other (perhaps some mild paranoia) Suicidal: Ideation (No SI) Homicidal: Ideation (No HI) Insight/Judgment Poor Labs Test 12/23/16 12/24/16 18:00 10:23 Urine Random Sodium 43 MEQ/L Sodium Level 129 MEQ/L Potassium Level 4.2 MEQ/L Chloride Level 96 MEQ/L Carbon Dioxide Level 26.9 MEQ/L Anion Gap 6 MEQ/L Blood Urea Nitrogen 19 MG/DL Creatinine 1.21 MG/DL Estimat Glomerular Filtration 59 ML/MIN Rate Random Glucose 67 MG/DL Calcium Level 9.6 MG/DL Vitals/IOs Vital Signs Date Time Temp Pulse Resp B/P Pulse Ox O2 Delivery O2 Flow Rate FiO2 12/24/16 10:08 91 115/59 97 12/24/16 06:12 98.6 17 Intake and Output 12/23/16 12/23/16 12/23/16 07:59 15:59 23:59 Intake Total 720 ml Output Total 300 ml 1030 ml Balance -300 ml -310 ml Assessment & Plan Problem List: (1) Schizoaffective disorder Assessment & Plan: We'll continue current psychotropics, Seroquel was just recently titrated up by Dr. Matamoros. ICD Code: F25.9 Assessment & Plan Estimated LOS: days Justification for Cont. Inpt. Patient will decompensate in a lower level of care. Request HC Surrog/Guard Advoc?: No Problem Qualifiers (1) Schizoaffective disorder: Qualified Code: F25.0 - Schizoaffective disorder, bipolar type Aidan Ohara MD Dec 24, 2016 14:07
--- NOTE | 2016-12-24 17:10 | HHI.PR ---
Subjective Remarks patient voiding very well no complains po 100% Objective Vitals Vital Signs Date Time Temp Pulse Resp B/P Pulse Ox O2 Delivery O2 Flow Rate FiO2 12/24/16 10:08 91 115/59 97 12/24/16 06:12 98.6 44 17 104/59 98 I/O 12/23/16 12/23/16 12/23/16 12/24/16 12/24/16 12/24/16 07:00 15:00 23:00 07:00 15:00 23:00 Intake Total 720 ml 2150 ml 2040 ml Output Total 300 ml 1030 ml 1865 ml 375 ml Balance -300 ml -310 ml 285 ml 1665 ml Intake Oral 720 ml 900 ml 2040 ml IV Total 1250 ml Output Urine Total 300 ml 1030 ml 1865 ml 375 ml # Voids 1 Result Diagram: 12/21/16 0730 12/24/16 1023 Imaging Last Impressions Renal Ultrasound 12/23/16 0000 Signed Impressions: Service Date/Time: December 16:04 - CONCLUSION: 1. Solid lesion involving the midpole the right kidney measuring 2 cm. Further characterization is suggested utilizing MRI with gadolinium. 2. No obstruction. 3. Mild circumferential wall thickening of urinary bladder. This could relate to acute cystitis or could relate to trabeculation from bladder outlet obstruction. Jc Prescott Jr., MD Objective Remarks awake and alert lungs clear regular rhythm abdomen-soft, good bowel sounds extremities no edema gait steady A/P Assessment and Plan 71 year-old male [facility]. Patient was sent to the hospital for urinary retention. He was sent back with a Bray catheter. However [facility] would not except him with a Bray catheter. Patient was readmitted to the hospital. Depression History of bipolar Psychiatry ff Hyponatremia. chronic. no signs of volume excess - stabilizing -TSH normal 12/17 labs. - ff BMP- Acute Kidney injury- "increase creatinine again pre renal vs post renal. - clinically appears dry- oral mucosa - US no obstruction or hydronephrosis - start IVF- NS S/P Acute Urinary retention.- resolved started on Flomax.- bray removed 12/20 . we did a postvoiding volume yesterday - 0 patient states voiding Incidental right kidney mass- work up as OP Vitamin D deficiency: Vitamin D level low, on replacement. Yunior Bruce MD Dec 24, 2016 17:10
[2016-12-24 17:54] VITALS: BP 120/62; PULSE 86; RESP 16; TEMP 98.7
[2016-12-24 21:14] LABS: BLOOD, URINE NEG (NEG); COMMENT (UR) CULT NOT INDICATED; CULTURE IF INDICATED CULT NOT INDICATED; GLUCOSE,URINE NEG (NEG); KETONE, URINE NEG (NEG); NITRITE,URINE NEG (NEG); PH, URINE 5.5 (5.0-8.5); URINE COLOR YELLOW (YELLW/STRAW)
[2016-12-25 05:16] VITALS: BP 128/61; PULSE 78; RESP 17; TEMP 98.1; O2SAT 97
[2016-12-25] MEDS: SODIUM CHLOR 0.9% 1000 ML INJ 1,000 ML IV SCH ×2 (06:44→17:15)
--- NOTE | 2016-12-25 08:37 | HHI.PR ---
Subjective Remarks up and ambulating feels "nervous" voiding well states "constipated" no nausea or vomiting Objective Vitals Vital Signs Date Time Temp Pulse Resp B/P Pulse Ox O2 Delivery O2 Flow Rate FiO2 12/25/16 05:16 98.1 78 17 128/61 97 12/24/16 17:54 98.7 86 16 120/62 12/24/16 10:08 91 115/59 97 I/O 12/24/16 12/24/16 12/24/16 12/25/16 12/25/16 12/25/16 07:00 15:00 23:00 07:00 15:00 23:00 Intake Total 2150 ml 2040 ml 1680 ml 1224 ml Output Total 1865 ml 375 ml 1400 ml 3600.00 ml Balance 285 ml 1665 ml 280 ml -2376.00 ml Intake Oral 900 ml 2040 ml 1680 ml 480 ml IV Total 1250 ml 744 ml Output Urine Total 1865 ml 375 ml 1400 ml 1800 ml Blood Draw 1800.00 ml Result Diagram: 12/21/16 0730 12/24/16 1023 Imaging Last Impressions Renal Ultrasound 12/23/16 0000 Signed Impressions: Service Date/Time: December 16:04 - CONCLUSION: 1. Solid lesion involving the midpole the right kidney measuring 2 cm. Further characterization is suggested utilizing MRI with gadolinium. 2. No obstruction. 3. Mild circumferential wall thickening of urinary bladder. This could relate to acute cystitis or could relate to trabeculation from bladder outlet obstruction. Jc Prescott Jr., MD Objective Remarks awake and alert, facial, dyskinetic movements of the face- lungs clear regular rhythm abdomen-soft, good bowel sounds extremities no edema gait steady A/P Assessment and Plan 71 year-old male initially admitted [facility]. Patient was sent to the hospital for urinary retention. He was sent back with a Bray catheter. However [facility] would not except him with a Bray catheter. Patient was readmitted to the hospital. Depression History of bipolar Involuntary dyskinetic movements of the face Psychiatry ff Hyponatremia. chronic. no signs of volume excess - stabilizing, slightly elevated creatinine- improved -TSH normal 12/17 labs. - Acute Kidney injury- creatinine trended down - UA negative - US no obstruction or hydronephrosis - ff BMP - per staff- po 100% Incidental Right kidney mass -suggest KONSTANTIN for better evaluation S/P Acute Urinary retention.- resolved started on Flomax.- bray removed 12/20 . we did a postvoiding volume 12/23- 0 patient voiding spontaneously- UA negative Constipation Colace 100 mg po bid - give x 1 - MOM and dulcolax 5 mg po Vitamin D deficiency: Vitamin D level low, on replacement. Yunior Bruce MD Dec 25, 2016 08:37
[2016-12-25] MEDS ORDERED: BISACODYL EC 5 MG TABEC PO ONE (08:45)
[2016-12-25] MEDS ORDERED: MAGNESIUM HYDROXIDE SUSP 30 ML CUP PO ONE (08:45)
[2016-12-25] MEDS: hydrOXYzine HCL 50 MG TAB PO PRN ×2 (08:46→20:16)
[2016-12-25] MEDS: THIAMINE HCL 100 MG TAB PO SCH (08:50)
[2016-12-25] MEDS: CHOLECALCIFEROL (VIT D3) 5000 UNIT CAP PO SCH (08:50)
[2016-12-25] MEDS: DOCUSATE SODIUM 50 MG/SENNA 8.6 MG TAB PO SCH ×2 (08:50→21:00)
[2016-12-25] MEDS: TAMSULOSIN HCL 0.4 MG CAP PO SCH (08:50)
[2016-12-25] MEDS: FOLIC ACID 1 MG TAB PO SCH (08:50)
[2016-12-25] MEDS: QUEtiapine FUMARATE 25 MG TAB PO SCH ×2 (08:50→20:16)
[2016-12-25] MEDS: NICOTINE 21 MG/24 HR PATCH T-DERMAL SCH (09:00)
[2016-12-25] MEDS: REMOVE OLD PATCH T-DERMAL SCH (09:00)
[2016-12-25 11:22] LABS: BICARBONATE 25.2 MEQ/L (21.0-32.0); POTASSIUM 4.2 MEQ/L (3.5-5.1)
--- NOTE | 2016-12-25 13:59 | HHI.PYPN ---
Subjective Remarks Patient seen and examined with nurse. Chart reviewed. Case discussed with nursing staff who reports patient is somewhat anxious but no real behavioral problem. On my examination today, patient remains anxious but is reluctant to adjust medications at this time. He denies audiovisual hallucinations. No brianna delusions. Denies side effects from medications. No physical complaints. Review of Systems Except as stated in HPI: all other systems reviewed are Neg Objective Alert: Yes [place]: Person, Place, Date Mood: Anxious Affect: Blunted Memory Intact: Comment (remains fair) Hallucinations: Other (no hallucinations) Delusions: No Delusion Type: Other (no delusions at this time) Suicidal: Ideation (No SI) Homicidal: Ideation (No HI) Insight/Judgment Fair Remarks No new abnormal motor movements noted. Labs Test 12/24/16 12/25/16 20:30 10:09 Urine Color YELLOW Urine Turbidity CLEAR Urine pH 5.5 Urine Specific [place] 1.015 Urine Protein NEG mg/dL Urine Glucose (UA) NEG mg/dL Urine Ketones NEG mg/dL Urine Occult Blood NEG Urine Nitrite NEG Urine Bilirubin NEG Urine Urobilinogen LESS THAN 2.0 MG/DL Urine Leukocyte Esterase NEG Microscopic Urinalysis Comment CULT NOT INDICATED Sodium Level 131 MEQ/L Potassium Level 4.2 MEQ/L Chloride Level 97 MEQ/L Carbon Dioxide Level 25.2 MEQ/L Anion Gap 9 MEQ/L Blood Urea Nitrogen 18 MG/DL Creatinine 1.12 MG/DL Estimat Glomerular Filtration 65 ML/MIN Rate Random Glucose 74 MG/DL Calcium Level 9.2 MG/DL Labs reviewed. Sodium level improved. Vitals/IOs Vital Signs Date Time Temp Pulse Resp B/P Pulse Ox O2 Delivery O2 Flow Rate FiO2 12/25/16 05:16 98.1 78 17 128/61 97 Intake and Output 12/24/16 12/24/16 12/25/16 08:00 16:00 00:00 Intake Total 2150 ml 2040 ml 1680 ml Output Total 1865 ml 375 ml 1400 ml Balance 285 ml 1665 ml 280 ml Assessment & Plan Problem List: (1) Schizoaffective disorder ICD Code: F25.9 Assessment & Plan Continue Seroquel as ordered per patient preference. If patient remains anxious tomorrow, may consider adjusting this medication or adding a new medication. Appreciate ongoing hospitalist assistance in the case. Continue other medications and care as ordered. Justification for Cont. Inpt. Risk for decompensation Discharge Planning Per Dr. Ohara Request HC Surrog/Guard Advoc?: No Problem Qualifiers (1) Schizoaffective disorder: Qualified Code: F25.0 - Schizoaffective disorder, bipolar type Edmond Matamoros MD Dec 25, 2016 13:59
[2016-12-25 18:00] VITALS: BP 108/66; PULSE 17; RESP 16; TEMP 100.6; O2SAT 98
[2016-12-26] MEDS: SODIUM CHLOR 0.9% 1000 ML INJ 1,000 ML IV SCH (03:15)
[2016-12-26 05:40] VITALS: BP 128/90; PULSE 57; PULSE 92; RESP 16; TEMP 97.2; TEMP 98.6; O2SAT 100
--- NOTE | 2016-12-26 07:29 | HHI.PR ---
Subjective Remarks no complains slept good overnight denies any pain states had a BM Objective Vitals Vital Signs Date Time Temp Pulse Resp B/P Pulse Ox O2 Delivery O2 Flow Rate FiO2 12/26/16 05:40 98.6 57 16 128/90 100 12/25/16 18:00 100.6 17 16 108/66 98 I/O 12/25/16 12/25/16 12/25/16 12/26/16 12/26/16 12/26/16 07:00 15:00 23:00 07:00 15:00 23:00 Intake Total 1224 ml 1440 ml 1960 ml 480 ml Output Total 3600.00 ml Balance -2376.00 ml 1440 ml 1960 ml 480 ml Intake Oral 480 ml 1440 ml 960 ml 480 ml IV Total 744 ml 1000 ml Output Urine Total 1800 ml Blood Draw 1800.00 ml # Voids 1 3 Result Diagram: 12/25/16 1009 Imaging Last Impressions Renal Ultrasound 12/23/16 0000 Signed Impressions: Service Date/Time: December 16:04 - CONCLUSION: 1. Solid lesion involving the midpole the right kidney measuring 2 cm. Further characterization is suggested utilizing MRI with gadolinium. 2. No obstruction. 3. Mild circumferential wall thickening of urinary bladder. This could relate to acute cystitis or could relate to trabeculation from bladder outlet obstruction. Jc Prescott Jr., MD Objective Remarks awake and alert, facial, oriented x 3 speech clear lungs clear regular rhythm abdomen-soft, good bowel sounds extremities no edema gait steady A/P Assessment and Plan 71 year-old male initially admitted [facility]. Patient was sent to the hospital for urinary retention. He was sent back with a Bray catheter. However [facility] would not except him with a Bray catheter. Patient was readmitted to the hospital. Depression History of bipolar Involuntary dyskinetic movements of the face Psychiatry ff Acute Kidney injury- creatinine trended down - UA negative - US no obstruction or hydronephrosis - ff BMP - per staff- po 100%. DC IVF Hyponatremia. chronic. no signs of volume excess - stabilizing, slightly elevated creatinine- improved now - DC IVF -TSH normal 12/17 labs. - Incidental Right kidney mass -suggest KONSTANTIN for better evaluation- may be done as OP S/P Acute Urinary retention.- resolved started on Flomax.- bray removed 12/20 . we did a postvoiding volume 12/23- 0 patient voiding spontaneously- UA negative Constipation + BMs yesterday per patient Colace 100 mg po bid Vitamin D deficiency: Vitamin D level low, on replacement. Yunior Bruce MD Dec 26, 2016 07:29
[2016-12-26] MEDS: THIAMINE HCL 100 MG TAB PO SCH (08:36)
[2016-12-26] MEDS: REMOVE OLD PATCH T-DERMAL SCH (08:36)
[2016-12-26] MEDS: DOCUSATE SODIUM 50 MG/SENNA 8.6 MG TAB PO SCH ×2 (08:36→20:21)
[2016-12-26] MEDS: TAMSULOSIN HCL 0.4 MG CAP PO SCH (08:36)
[2016-12-26] MEDS: NICOTINE 21 MG/24 HR PATCH T-DERMAL SCH (08:36)
[2016-12-26] MEDS: FOLIC ACID 1 MG TAB PO SCH (08:36)
[2016-12-26] MEDS: CHOLECALCIFEROL (VIT D3) 5000 UNIT CAP PO SCH (08:36)
[2016-12-26] MEDS: QUEtiapine FUMARATE 25 MG TAB PO SCH ×2 (09:55→20:21)
--- NOTE | 2016-12-26 12:01 | HHI.PYPN ---
Subjective Remarks Patient seen and examined with nurse. Chart reviewed. Case discussed with nursing staff. Noted to be very pleasant. On my examination today, patient seems less anxious. Denies AVH. No SI or HI. Regarding his medications, patient says "we about have it" with regards to dose. No side effects from medications. No physical complaints. Review of Systems Except as stated in HPI: all other systems reviewed are Neg Objective Alert: Yes [place]: Person, Place, Date Mood: Calm Affect: Blunted Memory Intact: Comment (remains fair) Hallucinations: Other (no AVH) Delusions: No Delusion Type: Other (no delusions) Suicidal: Ideation (No SI) Homicidal: Ideation (No HI) Insight/Judgment Fair Remarks Oral dyskinesias somewhat less. No other motor abnormalities. Labs Labs reviewed. Vitals/IOs Vital Signs Date Time Temp Pulse Resp B/P Pulse Ox O2 Delivery O2 Flow Rate FiO2 12/26/16 05:40 98.6 57 16 128/90 100 Intake and Output 12/25/16 12/25/16 12/26/16 08:00 16:00 00:00 Intake Total 1584 ml 1080 ml 1960 ml Output Total 3600.00 ml Balance -2016.00 ml 1080 ml 1960 ml Assessment & Plan Problem List: (1) Schizoaffective disorder ICD Code: F25.9 Assessment & Plan Continue current psychotropics as ordered. Follow-up BMP ordered by hospitalist. Continue to monitor on the unit. Continue other care as ordered. Justification for Cont. Inpt. Risk for decompensation Discharge Planning Seems to be improving from psych standpoint. Possible discharge within the next week Request HC Surrog/Guard Advoc?: No Problem Qualifiers (1) Schizoaffective disorder: Qualified Code: F25.0 - Schizoaffective disorder, bipolar type Edmond Matamoros MD Dec 26, 2016 12:01
[2016-12-26 12:58] LABS: BICARBONATE 25.3 MEQ/L (21.0-32.0); POTASSIUM 4.6 MEQ/L (3.5-5.1)
[2016-12-26] MEDS: ALUMINUM/MAGNESIUM/SIMETH 30 ML CUP PO PRN (17:30)
[2016-12-26 18:00] VITALS: BP 116/56; PULSE 75; RESP 16; TEMP 99.2; O2SAT 98
[2016-12-27 06:00] VITALS: BP 121/73; PULSE 61; RESP 16; TEMP 97.8; O2SAT 98
[2016-12-27] MEDS: NICOTINE 21 MG/24 HR PATCH T-DERMAL SCH (08:38)
[2016-12-27] MEDS: REMOVE OLD PATCH T-DERMAL SCH (08:38)
[2016-12-27] MEDS: QUEtiapine FUMARATE 25 MG TAB PO SCH ×2 (08:39→20:40)
[2016-12-27] MEDS: TAMSULOSIN HCL 0.4 MG CAP PO SCH (08:39)
[2016-12-27] MEDS: FOLIC ACID 1 MG TAB PO SCH (08:39)
[2016-12-27] MEDS: THIAMINE HCL 100 MG TAB PO SCH (08:39)
[2016-12-27] MEDS: DOCUSATE SODIUM 50 MG/SENNA 8.6 MG TAB PO SCH ×2 (08:39→20:40)
[2016-12-27] MEDS: CHOLECALCIFEROL (VIT D3) 5000 UNIT CAP PO SCH (08:39)
[2016-12-27] MEDS: hydrOXYzine HCL 50 MG TAB PO PRN ×2 (08:44→20:40)
[2016-12-27 12:54] LABS: POTASSIUM 4.4 MEQ/L (3.5-5.1)
--- NOTE | 2016-12-27 13:04 | HHI.PYPN ---
Subjective Remarks On psychiatric evaluation today patient is calm, cooperative and pleasant. His affect is much brighter today than the last time seen by me, reports improvement , better mood, less anxious, he doesn't have any somatic complaint. Sleeping better at night, also improve appetite. Oriented 3. Compliant with medications,medical side effects. Review of Systems Other No somatic complaints Objective Alert: Yes [place]: Person, Place, Date Mood: Calm Affect: Blunted Memory Intact: Comment (remains fair) Hallucinations: Other (no AVH) Delusions: No Delusion Type: Other (no delusions) Suicidal: Ideation (No SI) Homicidal: Ideation (No HI) Insight/Judgment fair Labs Test 12/27/16 11:48 Sodium Level 130 MEQ/L Potassium Level 4.4 MEQ/L Chloride Level 95 MEQ/L Carbon Dioxide Level 27.0 MEQ/L Anion Gap 8 MEQ/L Blood Urea Nitrogen 19 MG/DL Creatinine 1.21 MG/DL Estimat Glomerular Filtration 59 ML/MIN Rate Random Glucose 85 MG/DL Calcium Level 9.6 MG/DL Vitals/IOs Vital Signs Date Time Temp Pulse Resp B/P Pulse Ox O2 Delivery O2 Flow Rate FiO2 12/27/16 06:00 97.8 61 16 121/73 98 Intake and Output 12/26/16 12/26/16 12/26/16 07:59 15:59 23:59 Intake Total 480 ml 480 ml 1840 ml Balance 480 ml 480 ml 1840 ml Assessment & Plan Problem List: (1) Schizoaffective disorder Assessment & Plan: We'll continue current psychotropics, continue monitoring mood and behavior. ICD Code: F25.9 Assessment & Plan Estimated LOS: days Justification for Cont. Inpt. Patient has an increased risk to decompensate at a lower level of care Request HC Surrog/Guard Advoc?: No Problem Qualifiers (1) Schizoaffective disorder: Qualified Code: F25.0 - Schizoaffective disorder, bipolar type Aidan Ohara MD Dec 27, 2016 13:04
--- NOTE | 2016-12-27 17:35 | HHI.PR ---
Subjective Remarks no complains more interactive- and ambulating and talking more to the staff and participating more in group therapy "hoping to go home tomorrow" Objective Vitals Vital Signs Date Time Temp Pulse Resp B/P Pulse Ox O2 Delivery O2 Flow Rate FiO2 12/27/16 06:00 97.8 61 16 121/73 98 12/26/16 18:00 99.2 75 16 116/56 98 I/O 12/26/16 12/26/16 12/26/16 12/27/16 12/27/16 12/27/16 06:59 14:59 22:59 06:59 14:59 22:59 Intake Total 480 ml 480 ml 1840 ml 2520 ml Balance 480 ml 480 ml 1840 ml 2520 ml Intake Oral 480 ml 480 ml 1840 ml 2520 ml # Voids 3 1 5 2 # Bowel Movements 1 1 Result Diagram: 12/27/16 1148 Imaging Last Impressions Renal Ultrasound 12/23/16 0000 Signed Impressions: Service Date/Time: December 16:04 - CONCLUSION: 1. Solid lesion involving the midpole the right kidney measuring 2 cm. Further characterization is suggested utilizing MRI with gadolinium. 2. No obstruction. 3. Mild circumferential wall thickening of urinary bladder. This could relate to acute cystitis or could relate to trabeculation from bladder outlet obstruction. Jc Prescott Jr., MD Objective Remarks awake and alert, facial, oriented x 3 speech clear lungs clear regular rhythm abdomen-soft, good bowel sounds extremities no edema gait steady A/P Assessment and Plan 71 year-old male [facility]. Patient was sent to the hospital for urinary retention. He was sent back with a Bray catheter. However [facility] would not except him with a Bray catheter. Patient was readmitted to the hospital. Depression History of bipolar Involuntary dyskinetic movements of the face Psychiatry ff Hyponatremia. chronic. no signs of volume excess - stabilizing, slightly elevated creatinine- improved now -TSH normal 12/17 labs. Acute Kidney injury- creatinine trended down - UA negative - US no obstruction or hydronephrosis- - ff BMP - per staff- po 100%. Incidental Right kidney mass - MRI abdomen if patient cooperative S/P Acute Urinary retention.- resolved started on Flomax.- bray removed 12/20 . we did a postvoiding volume 12/23- 0 patient voiding spontaneously- UA negative Constipation + BMs yesterday per patient Colace 100 mg po bid Vitamin D deficiency: Vitamin D level low, on replacement. if DC- needs a PCP to ff up with when DC - CM ff Yunior Bruce MD Dec 27, 2016 17:35
[2016-12-27 18:22] VITALS: BP 121/59; PULSE 74; RESP 16; TEMP 98.9; O2SAT 97
[2016-12-28 06:20] VITALS: BP 124/63; PULSE 64; RESP 16; TEMP 98.1; O2SAT 96
[2016-12-28] MEDS: REMOVE OLD PATCH T-DERMAL SCH (09:00)
[2016-12-28] MEDS: NICOTINE 21 MG/24 HR PATCH T-DERMAL SCH (09:00)
[2016-12-28] MEDS: DOCUSATE SODIUM 50 MG/SENNA 8.6 MG TAB PO SCH ×2 (09:55→21:07)
[2016-12-28] MEDS: TAMSULOSIN HCL 0.4 MG CAP PO SCH (09:55)
[2016-12-28] MEDS: THIAMINE HCL 100 MG TAB PO SCH (09:55)
[2016-12-28] MEDS: FOLIC ACID 1 MG TAB PO SCH (09:55)
[2016-12-28] MEDS: QUEtiapine FUMARATE 25 MG TAB PO SCH ×2 (09:55→21:07)
[2016-12-28] MEDS: CHOLECALCIFEROL (VIT D3) 5000 UNIT CAP PO SCH (09:55)
[2016-12-28] MEDS ORDERED: LORazepam 1 MG TAB PO ONE (13:45)
[2016-12-28] MEDS: hydrOXYzine HCL 50 MG TAB PO PRN (14:00)
--- NOTE | 2016-12-28 15:41 | HHI.PYPN ---
Subjective Remarks Patient seen today for psychiatric evaluation along with nurse in charge. Patient continues to show improvement in mood and thought process. He reports feeling much better today, still a little anxious, but sleeping better with better appetite and better level of energy. Patient denies suicidal or homicidal ideation, he denies visual and auditory hallucinations. Oriented 3. Compliant with medications, no significant side effects. Review of Systems Other No somatic complaints Objective Alert: Yes [place]: Person, Place, Date Mood: Calm Affect: Blunted Memory Intact: Comment (remains fair) Hallucinations: Other (no AVH) Delusions: No Delusion Type: Other (no delusions) Suicidal: Ideation (No SI) Homicidal: Ideation (No HI) Insight/Judgment Improved Vitals/IOs Vital Signs Date Time Temp Pulse Resp B/P Pulse Ox O2 Delivery O2 Flow Rate FiO2 12/28/16 06:20 98.1 64 16 124/63 96 Intake and Output 12/27/16 12/27/16 12/27/16 07:59 15:59 23:59 Intake Total 2520 ml 2880 ml Balance 2520 ml 2880 ml Assessment & Plan Problem List: (1) Schizoaffective disorder ICD Code: F25.9 Assessment & Plan Estimated LOS: days Justification for Cont. Inpt. Elevated risk to decompensate at a lower level of care Request HC Surrog/Guard Advoc?: No Problem Qualifiers (1) Schizoaffective disorder: Qualified Code: F25.0 - Schizoaffective disorder, bipolar type Aidan Ohara MD Dec 28, 2016 15:41
[2016-12-28 17:42] VITALS: BP 102/59; PULSE 74; RESP 16; TEMP 98.2; O2SAT 97
--- NOTE | 2016-12-28 18:20 | HHI.PR ---
Subjective Remarks Written by Krystina Pineda, acting as scribe for Dr. Hernandez on 12/28/16 at 18:16. Follow-up renal mass Appears anxious regarding pending MRI. Offers no other specific complaints wanting to be discharged home . Denies chest pain shortness of breath nausea vomiting diarrhea constipation fevers or chills Objective Vitals Vital Signs Date Time Temp Pulse Resp B/P Pulse Ox O2 Delivery O2 Flow Rate FiO2 12/28/16 17:42 98.2 74 16 102/59 97 12/28/16 06:20 98.1 64 16 124/63 96 12/27/16 18:22 98.9 74 16 121/59 97 I/O 12/27/16 12/27/16 12/27/16 12/28/16 12/28/16 12/28/16 07:00 15:00 23:00 07:00 15:00 23:00 Intake Total 2520 ml 2880 ml 240 ml 2160 ml 720 ml Balance 2520 ml 2880 ml 240 ml 2160 ml 720 ml Intake Oral 2520 ml 2880 ml 240 ml 2160 ml 720 ml # Voids 2 2 3 Result Diagram: 12/27/16 1148 Imaging Last Impressions Renal Ultrasound 12/23/16 0000 Signed Impressions: Service Date/Time: December 16:04 - CONCLUSION: 1. Solid lesion involving the midpole the right kidney measuring 2 cm. Further characterization is suggested utilizing MRI with gadolinium. 2. No obstruction. 3. Mild circumferential wall thickening of urinary bladder. This could relate to acute cystitis or could relate to trabeculation from bladder outlet obstruction. Jc Prescott Jr., MD Objective Remarks awake and alert, facial, oriented x 3 speech clear lungs clear regular rhythm abdomen-soft, good bowel sounds extremities no edema gait steady A/P Assessment and Plan 71 year-old male initially admitted to [facility] for bipolar. Patient was sent to the hospital for urinary retention. He was sent back with a Bray catheter. However [facility] would not except him with a Bray catheter. Patient was readmitted to the hospital. Depression History of bipolar Psychiatry managing Hyponatremia. chronic. no signs of volume excess - stabilizing, slightly elevated creatinine- improved now -TSH normal 12/17 labs. Acute Kidney injury- creatinine trended down - UA negative - US no obstruction or hydronephrosis- - per staff- po 100%. Incidental Right kidney mass - MRI abdomen ordered and pending, Ativan ordered as premedication this patient has anxiety regarding MRI S/P Acute Urinary retention.- resolved started on Flomax.- bray removed 12/20 . we did a postvoiding volume 12/23- 0 patient voiding spontaneously- UA negative Constipation + BMs yesterday per patient Colace 100 mg po bid Discussed with patient and nursing plan to clear for discharge after MRI This note was transcribed by scribtricia [Krystina Pineda]. I, Dr. Karla Hernandez personally performed the history, physical exam, and medical decision making; and confirmed the accuracy of the information in the transcribed note. Authenticated by Dr. Karla Hernandez on 12/28/16 at 1820. Krystina Pineda Dec 28, 2016 18:20 Karla Hernandez MD Dec 28, 2016 19:17
[2016-12-28] MEDS: ALUMINUM/MAGNESIUM/SIMETH 30 ML CUP PO PRN (19:26)
[2016-12-29] MEDS: hydrOXYzine HCL 50 MG TAB PO PRN (05:46)
[2016-12-29 06:02] VITALS: BP 108/58; PULSE 57; RESP 18; TEMP 98.4; O2SAT 99
[2016-12-29] MEDS: THIAMINE HCL 100 MG TAB PO SCH (08:52)
[2016-12-29] MEDS: QUEtiapine FUMARATE 25 MG TAB PO SCH (08:53)
[2016-12-29] MEDS: CHOLECALCIFEROL (VIT D3) 5000 UNIT CAP PO SCH (08:53)
[2016-12-29] MEDS: DOCUSATE SODIUM 50 MG/SENNA 8.6 MG TAB PO SCH (08:53)
[2016-12-29] MEDS: TAMSULOSIN HCL 0.4 MG CAP PO SCH (08:53)
[2016-12-29] MEDS: REMOVE OLD PATCH T-DERMAL SCH (08:53)
[2016-12-29] MEDS: FOLIC ACID 1 MG TAB PO SCH (08:53)
[2016-12-29] MEDS: NICOTINE 21 MG/24 HR PATCH T-DERMAL SCH (08:53)
[2016-12-29] MEDS ORDERED: LORazepam 1 MG TAB PO ONE (09:45)
--- NOTE | 2016-12-29 10:07 | HHI.PR ---
Subjective Remarks Follow-up renal mass Pacing the halls- continues to be anxious regarding pending MRI. Wanting to be discharged home . Denies chest pain shortness of breath nausea vomiting diarrhea constipation fevers or chills Objective Vitals Vital Signs Date Time Temp Pulse Resp B/P Pulse Ox O2 Delivery O2 Flow Rate FiO2 12/29/16 06:02 98.4 57 18 108/58 99 12/28/16 17:42 98.2 74 16 102/59 97 I/O 12/28/16 12/28/16 12/28/16 12/29/16 12/29/16 12/29/16 07:00 15:00 23:00 07:00 15:00 23:00 Intake Total 240 ml 2160 ml 1660 ml Balance 240 ml 2160 ml 1660 ml Intake Oral 240 ml 2160 ml 1660 ml # Voids 3 4 2 Result Diagram: 12/27/16 1148 Objective Remarks Anxious awake and alert, facial, oriented x 3 speech clear lungs clear regular rhythm abdomen-soft, good bowel sounds extremities no edema gait steady A/P Assessment and Plan 71 year-old male initially admitted to [facility] for [facility]. Patient was sent to the hospital for urinary retention. He was sent back with a Bray catheter. However [facility] would not except him with a Bray catheter. Patient was readmitted to the hospital. Depression History of bipolar Psychiatry managing Hyponatremia. chronic. no signs of volume excess - stabilizing, slightly elevated creatinine- improved now -TSH normal 12/17 labs. Acute Kidney injury- creatinine trended down - UA negative - US no obstruction or hydronephrosis- Incidental Right kidney mass - MRI abdomen ordered and pending, Ativan ordered as premedication this patient has anxiety regarding MRI S/P Acute Urinary retention.- resolved started on Flomax.- bray removed 12/20. postvoiding volume 12/23- 0 patient voiding spontaneously- UA negative Constipation- resolves Colace 100 mg po bid Discussed with patient, nursing and Dr. Hernandez MRI reviewed by myself and Dr. Hernandez patient may be discharge from medical standpoint- recommend patient follow up outpatient for renal mass and have repeat MRI in 6 months Krystina Pineda Dec 29, 2016 10:07
--- NOTE | 2016-12-29 11:18 | HHI.DS ---
Psychiatry Discharge Summary Inpatient Psychiatric care?: Yes Advance Directive: No Reason Not Provided: none Mental Health AdvanceDirective: No Health Care Proxy: No Admission Admission Date Dec 20, 2016 at 21:30 Admission Diagnosis: (1) Schizoaffective disorder ICD Code: F25.9 Brief History Mr. Catherine is a 71-year-old male with a reported history of depression and anxiety and a chart history of schizoaffective disorder who presented initially in transfer from [facility] under a [place] Act alleging suicidal ideation. He was found to be in urinary retention and was medically admitted where he was seen in consultation by Dr. Pompa and Dr. Ohara. Reviewing the electronic medical record, I note that the patient was psychiatrically admitted here most recently under Dr. Batista in 2003. Patient seen and examined. Chart reviewed. Case discussed with nursing staff. On my examination today, the patient has prominent orofacial dyskinesias. He is a somewhat vague historian. He does complain of poor sleep and says "my balls weren't working right and my peeing [wasn't working right]." With questioning, patient initially endorses suicidal ideation but then says "never mind that!" He alludes to possibly drinking bleach once when asked about suicide plan. He endorses some low mood currently as well as feelings of hopelessness and worthlessness in addition to the poor sleep. He does not describe any AVH, nor can I elicit any brianna delusions, although he may be a little guarded. He does endorse a history of manias in the past but has no hypomanic/manic symptoms now. He denies any HI. The remainder of the psychiatric ROS is negative. The patient is willing to remain on the unit for further treatment. Past psychiatric history: The patient endorses a history of depression and anxiety. He has followed up psychiatrically on an outpatient basis at [facility] in the past. He says that his most recent psychiatric admission was about 12 years ago, and he says this was for "anxiety." He endorses a history of suicide attempts by overdose and also drank bleach once. He reports good response previously to Seroquel and Risperdal. Family history: The patient denies any family history of mental illness. Chemical dependency history: The patient endorses a history of heavy drinking but denies any recent abuse of drugs or alcohol. Social history: The patient is originally from [place] although he spent much of his adult life in [place] in [place]. He most recently resided in a prison facility in [place] he tells me. 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 He is single with no children. He denies any history. He does endorse a history of remote legal problems in connection with his involvement in the New Left movement in college in the 1960s and . He denies more recent legal issues. He denies any access to guns or firearms. He is a [employer]. He denies any history of psychological trauma or abuse. Tobacco Use In Past 30 Days: No Tobacco Past 30 Days Alcohol Use: Never Hospital Course Patient was admitted in the med psych unit for significant anxiety, depression and suicidal ideation. Intermediate safety measure were taken. Psychosocial and psychiatric assessment immediately performed. Patient was started in group and individual therapies, and in psychotropics. Patient was also consulted to medical team due to concerns with underlying medical conditions. Patient showed a good response to psychotropics and a structured environment. No significant side effects were reported. During his this hospitalization, no agitation, no aggressive behavior, no hostility, no major issues were reported by staff. She was usually calm, cooperative and pleasant. Patient was treated for acute renal failure, he also was found to have a right incidental renal mass , he had an MRI results are still pending, patient will follow up in outpatient. At the moment of this evaluation patient continues to be a little anxious, but denies depressive symptoms, denies psychosis, denies suicidal or homicidal ideation. Patient will be discharged with appropriate follow-up in [facility]. Results Blood Pressure 108 / 58 Vital Signs Date Time Temp Pulse Resp B/P Pulse Ox O2 Delivery O2 Flow Rate FiO2 12/29/16 06:02 98.4 57 18 108/58 99 Laboratory Tests Test 12/26/16 12/27/16 12:00 11:48 Sodium Level 130 MEQ/L 130 MEQ/L (136-145) (136-145) Chloride Level 97 MEQ/L 95 MEQ/L (98-107) (98-107) Blood Urea Nitrogen 19 MG/DL (7-18) 19 MG/DL (7-18) Estimat Glomerular Filtration 62 ML/MIN (>89) 59 ML/MIN (>89) Rate Random Glucose 155 MG/DL (74-106) Summary of Procedures No procedures done Imaging Last Impressions Renal Ultrasound 12/23/16 0000 Signed Impressions: Service Date/Time: December 16:04 - CONCLUSION: 1. Solid lesion involving the midpole the right kidney measuring 2 cm. Further characterization is suggested utilizing MRI with gadolinium. 2. No obstruction. 3. Mild circumferential wall thickening of urinary bladder. This could relate to acute cystitis or could relate to trabeculation from bladder outlet obstruction. Jc Prescott Jr., MD Pending results at discharge: No Medications # of Antipsychotic meds at D/C: 1 Appropriate >1 Antipsych meds?: 1 Approp Antipsych med options 1 - Minimum of three failed multiple trials of monotherapy. 2 - Documented plan to taper to monotherapy due to previous use of multiple meds OR cross-taper in progress at D/C. 3 - Documentation of augmentation of Clozapine. 4 - Justification other than those listed in allowable values 1-3, document here : Discharge Discharge Date: Dec 29, 2016 Discharge Diagnosis: (1) Schizoaffective disorder ICD Code: F25.9 Mental Status Exam at Disch Elderly man, good hygiene, regular street clothing, calm, cooperative anxious. He has speech which is is spontaneous and fluent. Mood is euthymic, affect congruent with mood. Thought process is logical, coherent and relevant. Thought content devoid of suicidal homicidal ideation, visual and auditory hallucinations. Insight, impulse control, judgment is good. Memory is intact at this moment. Pt Condition on Discharge: Stable Discharge Disposition: Discharge to SNF Discharge Instructions Diet Instructions: Heart Healthy Diet Activities you can perform: Weight Bearing as Will Scheduled Appointment: [facility] Appointment Date: Dec 29, 2016 Appointment Time: 07:30am Discharge Time > 30 minutes Discharge/Advance Care Plan Health Problems: (1) Schizoaffective disorder Goals to promote your health * To prevent worsening of your condition and complications * To maintain your health at the optimal level Directions to meet your goals Take your medications as prescribed Follow your dietary instruction Follow activity as directed Keep your appointments as scheduled Take your immunizations and boosters as scheduled If your symptoms worsen call your PCP, if no PCP go to Urgent Care Center or Emergency Room For 24/7 questions related to your inpatient stay or results of tests pending at discharge, please contact Dr. Aidan Ohara at Smoking is Dangerous to Your Health. Avoid second hand smoking Problem Qualifiers (1) Schizoaffective disorder: Qualified Code: F25.0 - Schizoaffective disorder, bipolar type Aidan Ohara MD Dec 29, 2016 11:18
[2016-12-29] MEDS ORDERED: GADODIAMIDE PF 287 MG/ML 10 ML VIAL (for RAD MRI) IV ONE (12:15)
--- NOTE | 2016-12-29 12:27 | RADRPT ---
EXAM DATE/TIME: 12/29/2016 10:39 [facility] COMPARISON: Prior ultrasound, use for comparison. INDICATIONS : Renal mass. CONTRAST: 8 cc Omniscan (gadodiamide) IV MEDICAL HISTORY : Gastroesophageal reflux disease. Renal insufficiency. SURGICAL HISTORY : Esophageal surgery. ENCOUNTER: Initial ACUITY: 2 day PAIN SCORE: 0/10 LOCATION: Abdomen TECHNIQUE: Multiplanar, multisequence magnetic resonance imaging of the abdomen was performed without and with i ntravenous contrast. FINDINGS: MRI of the abdomen was performed with and without contrast. In the inferior lateral aspect of the ri ght kidney there is a exophytic bi-lobed mass measuring 2.5 x 1.7 cm across. The posterior aspect of it appears to be just a benign cyst but there is a more solid appearing component measuring 1.8 x 1. 7 cm. That lesion is almost as hyper intense on the fluid sequences as the other benign cysts throug hout the kidneys but there is some internal debris. Dynamic images were performed. There is very li ttle if any enhancement of the mass. It is unremarkable on the subtraction weighted sequences. The other cysts also show no abnormal areas of enhancement. There are a few tiny cortical cysts on the l eft side. There is a gallstone in a non-inflamed gallbladder. CONCLUSION: Complex nodule off the inferolateral aspect of the right kidney. Although there is some internal sergio ris the lesion does not show any real significant enhancement with contrast. It is heterogeneous and does not have a complete characteristics of a complicated cyst. Follow up MRI in six months could b e performed. It also would be amenable to CT-guided biopsy if warranted. Denys Moore MD on December 29, 2016 at 12:11 Board Certified Radiologist. This report was verified electronically.
== END 2016-12-29 15:10 | DRG 885 ==
LOC: H260 21:30 → UNDOADMIN 21:40 → H4EA 12-23 14:30
PROVIDERS: ADMIT Psychiatry & Neurology Psychiatry; ATTEND Psychiatry & Neurology Psychiatry
DX: F25.0 Schizoaffective disorder, bipolar type (principal); N17.9 Acute kidney failure, unspecified; E87.1 Hypo-osmolality and hyponatremia; G24.4 Idiopathic orofacial dystonia; R45.851 Suicidal ideations; E55.9 Vitamin D deficiency, unspecified; N28.89 Other specified disorders of kidney and ureter; K59.00 Constipation, unspecified; Z91.5 Personal history of self-harm
CPT/HCPCS: 74183; 76775; 80048; 80053; 80061; 81001; 83036; 84300; 85025; A9579; J7030

== ENCOUNTER 2017-03-23 12:19 | Inpatient (IN) | payer OTHER, MEDICAID, MEDICARE ==
[~2017-03-23] VITALS: Ht 177.8 cm; Wt 59.6 kg
[~2017-03-23 12:19] MED LIST changes: -BUSP15TA PO; -MIRTA15 PO; -QUET1TAB10 PO; -SERO50TA PO
[2017-03-23 12:20] VITALS: BP 139/74; PULSE 105; RESP 14; TEMP 98.7; O2SAT 97
--- NOTE | 2017-03-23 12:38 | PD ---
HPI Chief Complaint: Psychiatric Symptoms Time Seen by Provider: 12:32 Travel History International Travel<30 days: No Contact w/Intl Traveler<30days: No History of Present Illness HPI Patient comes in under police escort [facility] [place] [facility] Per Anastasia acted patient is actively suicidal and has a history of bipolar with hypomania. Patient will not answer questions just keeps repeating "you are involved". Thus limiting history of present illness. PFSH Past Medical History Arthritis: No Asthma: No Autoimmune Disease: No Anxiety: Yes Depression: Yes Cancer: No High Cholesterol: No Chemotherapy: No Chest Pain: No Congestive Heart Failure: No COPD: No Cerebrovascular Accident: No Diabetes: No Diminished Hearing: No Endocrine: No GERD: No Genitourinary: No Headaches: No Hiatal Hernia: No Hypertension: No Immune Disorder: No Kidney Stones: No Musculoskeletal: No Neurologic: Yes Psychiatric: Yes (Anxiety, Depression ) Reproductive: No Respiratory: No Radiation Therapy: No Renal Failure: No Seizures: No Sickle Cell Disease: No Sleep Apnea: No Thyroid Disease: No Ulcer: No Past Surgical History Abdominal Surgery: Yes (APPENDECTOMY AND STOMACH SURGERY) AICD: No Appendectomy: Yes Arteriovenous Shunt: No Cardiac Surgery: No Ear Surgery: No Endocrine Surgery: No Eye Surgery: No Genitourinary Surgery: No Gynecologic Surgery: No Insulin Pump: No Joint Replacement: No Oral Surgery: No Pacemaker: No Thoracic Surgery: No Social History Alcohol Use: No Tobacco Use: No Substance Use: No Allergies-Medications (Allergen,Severity, Reaction): Coded Allergies: divalproex sodium (Unverified Allergy, Severe, 03/23/17) olanzapine (Unverified Allergy, Severe, 03/23/17) methylphenidate (Unverified Allergy, Unknown, 03/23/17) Reported Meds & Prescriptions Reported Meds & Active Scripts Active Vitamin D3 (Cholecalciferol) 5,000 Unit Cap 5,000 Units PO DAILY Trazodone (Trazodone HCl) 50 Mg Tab 50 Mg PO HS PRN Flomax (Tamsulosin HCl) 0.4 Mg Cap 0.4 Mg PO DAILY [Lactulose Liq] 30 ML Syrp 30 Ml PO DAILY PRN 30 Days Senna Plus 8.6-50 mg (Sennosides-Docusate Sodium) 1 Tab Tab 1 Tab PO BID Review of Systems ROS Limitations: Uncooperative, Psychotic Except as stated in HPI: all other systems reviewed are Neg Physical Exam Exam Limitations: Uncooperative, Refused, Psychotic Narrative GENERAL: Well-developed, well nourished, in no acute distress, and non-ill appearing. SKIN: Focused skin assessment warm and dry. HEAD: Atraumatic. Normocephalic. EYES: Pupils equal and round. EOMI. No scleral icterus. No injection or drainage. ENT: No nasal bleeding or discharge. Mucous membranes pink and moist. NECK: Trachea midline. Supple. No nuclear rigidity. RESPIRATORY: No accessory muscle use. No respiratory distress. MUSCULOSKELETAL: No obvious deformities. No clubbing. No cyanosis. No edema. Full range of motion. NEUROLOGICAL: Awake and alert. No obvious cranial nerve deficits. Motor grossly within normal limits. Normal speech. Data Data Last Documented VS Vital Signs Date Time Temp Pulse Resp B/P (MAP) Pulse Ox O2 Delivery O2 Flow Rate FiO2 03/23/17 12:20 98.7 105 14 139/74 (95) 97 Orders Orders Complete Blood Count With Diff (03/23/17 12:32) Comprehensive Metabolic Panel (03/23/17 12:32) Psych Screen (03/23/17 12:32) Haloperidol Inj (Haldol Inj) (03/23/17 12:45) Lorazepam Inj (Ativan Inj) (03/23/17 12:45) Drug Screen, Random Urine (03/23/17 12:32) Alcohol (Ethanol) (03/23/17 12:32) Salicylates (Aspirin) (03/23/17 12:32) Tylenol (Acetaminophen) (03/23/17 12:32) Sodium Chlor 0.9% 1000 Ml Inj (Ns 1000 M (03/23/17 14:15) Labs Laboratory Tests Test 03/23/17 12:45 03/23/17 13:00 White Blood Count 5.9 TH/MM3 Red Blood Count 3.66 MIL/MM3 Hemoglobin 10.1 GM/DL Hematocrit 30.5 % Mean Corpuscular Volume 83.2 FL Mean Corpuscular Hemoglobin 27.7 PG Mean Corpuscular Hemoglobin Concent 33.2 % Red Cell Distribution Width 15.0 % Platelet Count 209 TH/MM3 Mean Platelet Volume 7.6 FL Neutrophils (%) (Auto) 72.4 % Lymphocytes (%) (Auto) 19.0 % Monocytes (%) (Auto) 7.7 % Eosinophils (%) (Auto) 0.6 % Basophils (%) (Auto) 0.3 % Neutrophils # (Auto) 4.3 TH/MM3 Lymphocytes # (Auto) 1.1 TH/MM3 Monocytes # (Auto) 0.5 TH/MM3 Eosinophils # (Auto) 0.0 TH/MM3 Basophils # (Auto) 0.0 TH/MM3 CBC Comment DIFF FINAL Differential Comment Blood Urea Nitrogen 22 MG/DL Creatinine 1.42 MG/DL Random Glucose 111 MG/DL Total Protein 7.2 GM/DL Albumin 4.2 GM/DL Calcium Level 9.3 MG/DL Alkaline Phosphatase 52 U/L Aspartate Amino Transf (AST/SGOT) 29 U/L Alanine Aminotransferase (ALT/SGPT) 45 U/L Total Bilirubin 1.2 MG/DL Sodium Level 132 MEQ/L Potassium Level 3.7 MEQ/L Chloride Level 98 MEQ/L Carbon Dioxide Level 24.9 MEQ/L Anion Gap 9 MEQ/L Estimat Glomerular Filtration Rate 49 ML/MIN Salicylates Level LESS THAN 1.7 MG/DL Acetaminophen Level LESS THAN 2.0 MCG/ML Ethyl Alcohol Level LESS THAN 3 MG/DL Urine Opiates Screen NEG Urine Barbiturates Screen NEG Urine Amphetamines Screen NEG Urine Benzodiazepines Screen NEG Urine Cocaine Screen NEG Urine Cannabinoids Screen NEG MDM Medical Decision Making Medical Screen Exam Complete: Yes Emergency Medical Condition: Yes Differential Diagnosis Homicidal, suicidal, schizoaffective, dementia, acute psychosis, electrolyte abnormality, other Narrative Course Patient was seen and examined. Labs were obtained and reviewed. Patient given a liter IV fluid secondary to mild dehydration. Patient medically cleared for further treatment and evaluation by psych. Final disposition per psych. Diagnosis Primary Impression: Medical clearance for psychiatric admission Condition: Stable Kamran Beverly Mar 23, 2017 12:38
[2017-03-23] MEDS ORDERED: LORazepam 2 MG/ML VIAL IM ONE (12:45)
[2017-03-23] MEDS ORDERED: HALOPERIDOL LACTATE 5 MG/ML AMP IM ONE (12:45)
[2017-03-23 13:27] LABS: AUTOMATED NEUTROPHIL # 4.3 TH/MM3 (1.8-7.7); BASOPHIL % 0.3 % (0.0-2.0); EOSINOPHIL % 0.6 % (0.0-4.0); HEMATOCRIT 30.5 % (39.0-51.0); HEMO FLAGS DIFF FINAL; LYMPHOCYTE # 1.1 TH/MM3 (1.0-4.8); MEAN CELL VOLUME 83.2 FL (80.0-100.0); MEAN CORPUSCULAR HEMOGLOBIN 27.7 PG (27.0-34.0); MEAN CORPUSCULAR HGB CONC 33.2 % (32.0-36.0); MONO % 7.7 % (0.0-8.0); NEUT % 72.4 % (16.0-70.0); PLATELET COUNT 209 TH/MM3 (150-450); RED BLOOD COUNT 3.66 MIL/MM3 (4.50-5.90); WHITE BLOOD COUNT 5.9 TH/MM3 (4.0-11.0)
[2017-03-23 13:52] LABS: ALT (GPT) 45 U/L (12-78); ANION GAP 9 MEQ/L (5-15); AST (GOT) 29 U/L (15-37); BICARBONATE 24.9 MEQ/L (21.0-32.0); BLOOD UREA NITROGEN 22 MG/DL (7-18); CHLORIDE 98 MEQ/L (98-107); GLOMERULAR FILTRATION RATE 49 ML/MIN (>89); POTASSIUM 3.7 MEQ/L (3.5-5.1); SODIUM (NA) 132 MEQ/L (136-145)
[2017-03-23 13:54] LABS: ALKALINE PHOSPHATASE 52 U/L (45-117); TOTAL BILIRUBIN ADULT 1.2 MG/DL (0.2-1.0)
[2017-03-23 14:03] LABS: ALCOHOL LESS THAN 3 MG/DL (0-5)
[2017-03-23 14:13] LABS: ACETAMINOPHEN LESS THAN 2.0 MCG/ML (10.0-30.0)
[2017-03-23] MEDS ORDERED: SODIUM CHLOR 0.9% 1000 ML INJ 1,000 ML IV ONE (14:15)
[2017-03-23] MEDS ORDERED: MAGNESIUM HYDROXIDE SUSP 30 ML CUP PO PRN (15:45)
[2017-03-23] MEDS ORDERED: LORazepam 1 MG TAB PO PRN (15:45)
[2017-03-23] MEDS ORDERED: ALUMINUM/MAGNESIUM/SIMETH 30 ML CUP PO PRN (15:45)
[2017-03-23] MEDS ORDERED: LORazepam 2 MG/ML VIAL IM PRN (15:45)
[2017-03-23] MEDS ORDERED: ACETAMINOPHEN 325 MG TAB PO PRN (15:45)
--- NOTE | 2017-03-23 15:46 | HHI.HP ---
Provisional Diagnosis Admission Date Mar 23, 2017 at 15:33 [place] I. Bipolar disorder Certification of Person's Competence To Provide Express and Informed Consent I have personally examined Tyler Catherine , a person being served at [facility] on, Mar 23, 2017 15:37. Express and informed consent means consent voluntarily given in writing, by a competent person, after sufficient explanation and disclosure of the subject matter involved to enable the person to make a knowing and willful decision without any element of force, fraud, deceit, duress, or other form of constraint or coercion. This person is 18 years of age or older, is not now known to be incompetent to consent to treatment with a guardian advocate, and does not have a health care surrogate or proxy currently making medical treatment decisions. I have found this person to be one of the following: [x] Competent to provide express and informed consent, as defined above, for voluntary admission to this facility and is competent to provide express and informed consent for treatment. He/she has the consistent capacity to make well reasoned, willful, and knowing decisions concerning his or her medical or mental health treatment. The person fully and consistently understands the purpose of the admission for examination/placement and is fully capable of personally exercising all rights assured [place] Incompetent to provide express and informed consent to voluntary admission, and this is incompetent to provide express and informed consent to treatment. The person must be transferred to involuntary status and a petition for a guardian advocate filed with the Circuit Court. [] Refusing to provide express and informed consent to voluntary admission but is competent to provide express and informed consent for treatment. The person must be discharged or transferred to involuntary status. Form shall be completed within 24 hours of a person's arrival at the receiving facility and filed in the clinical record of each person: 1. Admitted on a voluntary basis 2. Permitted to provide express and informed consent to his/her own treatment 3. Allowed to transfer from involuntary to voluntary status 4. Prior to permitting a person to consent to his or her own treatment after having been previously found incompetent to consent to treatment. History of Present Illness Capacity: Has Capacity HPI 72-year-old male being admitted under a [place] act initiated by Shady Marcos and law enforcement. Patient reportedly has a history of bipolar disorder and is currently actively suicidal. Patient does confirm with this physician that he is actively suicidal but he remains a somewhat poor historian. He appears to be responding to internal stimuli and repeats himself and nonsensical fashion. He indicated "you are involved" to this physician as well as the emergency department physician. He admits to symptoms of depression, including depressed mood, suicidality, anxiety, hopelessness and helplessness, difficulty sleeping, poor energy, and auditory hallucinations. Indeed, the patient does appear to be responding to internal stimuli and comes across as paranoid. He is also obviously unable to care for himself at this time. Review of Systems Except as stated in HPI: all other systems reviewed are Neg Past Psych History Psychological trauma history Unknown psychological trauma but the patient reportedly has a history of bipolar disorder. Violence risk - others (6 mos) Minimal Violence risk - self (6 mos) High Substance Abuse History Drugs/Alcohol past 12 months Denied Past Family Social History Coded Allergies: divalproex sodium (Unverified Allergy, Severe, 03/23/17) olanzapine (Unverified Allergy, Severe, 03/23/17) methylphenidate (Unverified Allergy, Unknown, 03/23/17) Active Scripts Cholecalciferol (Vitamin D3) 5,000 Unit Cap, 5000 UNITS PO DAILY for Nutritional Supplement, #30 CAP Prov:Ministerio De Leon 12/20/16 Trazodone (Trazodone) 50 Mg Tab, 50 MG PO HS Y for INSOMNIA, #30 TAB Prov:Karla Hernandez MD 12/19/16 Tamsulosin (Flomax) 0.4 Mg Cap, 0.4 MG PO DAILY, #30 CAP Prov:Karla Hernandez MD 12/19/16 [Lactulose] 30 ML SYRP No Conflict Check, 30 ML PO DAILY Y for SEVERE CONSITIPATION for 30 Days, ML Prov:Karla Hernandez MD 12/19/16 Sennosides-Docusate Sodium (Senna Plus 8.6-50 mg) 1 Tab Tab, 1 TAB PO BID, #60 TAB Prov:Karla Hernandez MD 12/19/16 Current Medications Medications (Trade) Dose Ordered Sig/Kerry Route Start Time Stop Time Status Last Admin (Ativan) 1 mg Q6H PRN PO 03/23/17 15:45 UNV (Ativan Inj) 1 mg Q6H PRN IM 03/23/17 15:45 UNV (Tylenol) 650 mg Q4H PRN PO 03/23/17 15:45 UNV (Milk Of Magnesia Liq) 30 ml DAILY PRN PO 03/23/17 15:45 UNV (Mag-Al Plus Susp Liq) 30 ml Q6H PRN PO 03/23/17 15:45 UNV Family Psych History Unknown Social History Patient is unemployed/retired. He does apparently have a history of treatment for prostate illness. He also has a history of allergy to Depakote and Zyprexa , to psychotropic medicines. His family support system is unknown at this point. However patient remains unable to care for himself. Patient's Strengths (min. 2) Resilient and has access to healthcare. Physical Exam GENERAL: SKIN: Warm and dry. HEAD: Normocephalic. EYES: No scleral icterus. No injection or drainage. NECK: Supple, trachea midline. No JVD or lymphadenopathy. CARDIOVASCULAR: Regular rate and rhythm without murmurs, gallops, or rubs. RESPIRATORY: Breath sounds equal bilaterally. No accessory muscle use. GASTROINTESTINAL: Abdomen soft, non-tender, nondistended. MUSCULOSKELETAL: No cyanosis, or edema. BACK: Nontender without obvious deformity. No CVA tenderness. Vital Signs Vital Signs Date Time Temp Pulse Resp B/P (MAP) Pulse Ox O2 Delivery O2 Flow Rate FiO2 03/23/17 12:20 98.7 105 14 139/74 (95) 97 Lab Results Test 03/23/17 12:45 03/23/17 13:00 White Blood Count 5.9 TH/MM3 Red Blood Count 3.66 MIL/MM3 Hemoglobin 10.1 GM/DL Hematocrit 30.5 % Mean Corpuscular Volume 83.2 FL Mean Corpuscular Hemoglobin 27.7 PG Mean Corpuscular Hemoglobin Concent 33.2 % Red Cell Distribution Width 15.0 % Platelet Count 209 TH/MM3 Mean Platelet Volume 7.6 FL Neutrophils (%) (Auto) 72.4 % Lymphocytes (%) (Auto) 19.0 % Monocytes (%) (Auto) 7.7 % Eosinophils (%) (Auto) 0.6 % Basophils (%) (Auto) 0.3 % Neutrophils # (Auto) 4.3 TH/MM3 Lymphocytes # (Auto) 1.1 TH/MM3 Monocytes # (Auto) 0.5 TH/MM3 Eosinophils # (Auto) 0.0 TH/MM3 Basophils # (Auto) 0.0 TH/MM3 CBC Comment DIFF FINAL Differential Comment Blood Urea Nitrogen 22 MG/DL Creatinine 1.42 MG/DL Random Glucose 111 MG/DL Total Protein 7.2 GM/DL Albumin 4.2 GM/DL Calcium Level 9.3 MG/DL Alkaline Phosphatase 52 U/L Aspartate Amino Transf (AST/SGOT) 29 U/L Alanine Aminotransferase (ALT/SGPT) 45 U/L Total Bilirubin 1.2 MG/DL Sodium Level 132 MEQ/L Potassium Level 3.7 MEQ/L Chloride Level 98 MEQ/L Carbon Dioxide Level 24.9 MEQ/L Anion Gap 9 MEQ/L Estimat Glomerular Filtration Rate 49 ML/MIN Salicylates Level LESS THAN 1.7 MG/DL Acetaminophen Level LESS THAN 2.0 MCG/ML Ethyl Alcohol Level LESS THAN 3 MG/DL Urine Opiates Screen NEG Urine Barbiturates Screen NEG Urine Amphetamines Screen NEG Urine Benzodiazepines Screen NEG Urine Cocaine Screen NEG Urine Cannabinoids Screen NEG Mental Status Examination Appearance: Appropriate Consciousness: Alert Orientation: Person Motor Activity: Normal gait Speech: Hesitant Language: Adequate Fund of Knowledge: Adequate Attention and Concentration: Inadequate Memory: Impaired Mood: Anxious Affect: Anxious Thought Process & Associations: Loose associations Thought Content: Bizarre thinking Hallucination Type: Auditory Delusion Type: Bizarre Suicidal Ideation: Yes Suicidal Plan: No Suicidal Intention: No Homicidal Ideation: No Homicidal Plan: No Homicidal Intention: No Insight: Poor Judgment: Poor Assessment & Plan Problem List: (1) Bipolar disorder, current episode mixed, severe, with psychotic features ICD Codes: F31.64 - Bipolar disorder, current episode mixed, severe, with psychotic features Assessment & Plan Estimated LOS: days. 72-year-old male with reported history of bipolar disorder and previous history of treatment with psychotropic medicines, now presents with symptoms of depression and suicidality as well as reported hypomania and paranoid delusional beliefs. Patient appears to be responding to internal stimuli and is apparently experiencing auditory hallucinations. He remains unable to care for himself and is felt to be dangerous to himself, especially given his suicidal threats. For these reasons he is being admitted for further evaluation and treatment. This physician has ordered a CBC and comprehensive metabolic panel. This is to determine if the patient has an infectious process or metabolic process that is causing or contributing to his mood disorder and psychosis. Additionally, we are obtaining thyroid stimulating hormone levels, vitamin B-12 levels and vitamin D levels, again to determine if the patient has deficiencies in these areas, which might be causing or contributing to his mood disorder and psychosis. This physician has furthermore ordered an EKG and hospitalist consult to determine if the patient has cardiac conduction problems prior to instituting psychotropic medication changes and to evaluate the patient for underlying physical medical disease. This physician spoke with the patient's nurse regarding his bizarre behavior. Case management will also be involved in order to obtain further information and assist with disposition planning. Hussain Pompa MD Mar 23, 2017 15:46
[2017-03-23 16:45] VITALS: BP 143/74
[2017-03-23 17:39] VITALS: BP 124/58; PULSE 58; RESP 16; TEMP 98.6; O2SAT 99
[2017-03-24 05:41] VITALS: BP 119/70; PULSE 67; RESP 18; TEMP 97.6; O2SAT 98
[2017-03-24] MEDS ORDERED: ACETAMINOPHEN 325 MG TAB PO PRN (11:00)
[2017-03-24] MEDS ORDERED: MAGNESIUM HYDROXIDE SUSP 30 ML CUP PO PRN (11:00)
[2017-03-24] MEDS ORDERED: ALUMINUM/MAGNESIUM/SIMETH 30 ML CUP PO PRN (11:00)
[2017-03-24] MEDS ORDERED: LACTULOSE SYRUP 20 GM/30 ML CUP PO PRN (11:00)
[2017-03-24] MEDS ORDERED: hydrOXYzine HCL 50 MG TAB PO PRN (11:00)
--- NOTE | 2017-03-24 11:24 | HHI.PYPN ---
Subjective Remarks Patient initially seen with initial psychiatric H&P by Dr. Hussain Pompa. Dr. Chang his deemed him to be competent. Patient seen by me is alert oriented a somewhat feisty thin slender tall white male is somewhat confusing history of placement issues following his hospitalization here the middle of December of this year. He does acknowledge being depressed and suicidal prior to coming in states he feels somewhat better and safer here. He denies any voices or visions. Denies any alcohol or drug use. His urine toxicology was negative talk level is negative our ED on admission. I have also completed the psychiatric admission template. And did the med reconciliation. At this time I do agree with Dr. Pompa will allow the patient stay on a voluntary basis. I did review the EMR patient discharge a 75 mg Seroquel twice a day in December RESTART that at this present time continue his other scheduled medications Chief Complaint: patient suicidal with increased paranoia and psychosis Review of Systems Except as stated in HPI: all other systems reviewed are Neg Mental Status Examination Appearance: Appropriate Consciousness: Alert Orientation: Person, Place, Situation Motor Activity: Normal gait Speech: Rapid, Hesitant Language: Adequate Fund of Knowledge: Adequate Attention and Concentration: Inadequate Memory: Impaired Mood: Anxious Affect: Other (good range and intensity) Thought Process & Associations: Loose associations Thought Content: Bizarre thinking Hallucination Type: Auditory (denies today) Delusion Type: Bizarre Suicidal Ideation: Yes (denies today) Suicidal Plan: No Suicidal Intention: No Homicidal Ideation: No Homicidal Plan: No Homicidal Intention: No Insight: Poor Judgment: Poor Results Labs Test 03/23/17 12:45 03/23/17 13:00 White Blood Count 5.9 TH/MM3 Red Blood Count 3.66 MIL/MM3 Hemoglobin 10.1 GM/DL Hematocrit 30.5 % Mean Corpuscular Volume 83.2 FL Mean Corpuscular Hemoglobin 27.7 PG Mean Corpuscular Hemoglobin Concent 33.2 % Red Cell Distribution Width 15.0 % Platelet Count 209 TH/MM3 Mean Platelet Volume 7.6 FL Neutrophils (%) (Auto) 72.4 % Lymphocytes (%) (Auto) 19.0 % Monocytes (%) (Auto) 7.7 % Eosinophils (%) (Auto) 0.6 % Basophils (%) (Auto) 0.3 % Neutrophils # (Auto) 4.3 TH/MM3 Lymphocytes # (Auto) 1.1 TH/MM3 Monocytes # (Auto) 0.5 TH/MM3 Eosinophils # (Auto) 0.0 TH/MM3 Basophils # (Auto) 0.0 TH/MM3 CBC Comment DIFF FINAL Differential Comment Blood Urea Nitrogen 22 MG/DL Creatinine 1.42 MG/DL Random Glucose 111 MG/DL Total Protein 7.2 GM/DL Albumin 4.2 GM/DL Calcium Level 9.3 MG/DL Alkaline Phosphatase 52 U/L Aspartate Amino Transf (AST/SGOT) 29 U/L Alanine Aminotransferase (ALT/SGPT) 45 U/L Total Bilirubin 1.2 MG/DL Sodium Level 132 MEQ/L Potassium Level 3.7 MEQ/L Chloride Level 98 MEQ/L Carbon Dioxide Level 24.9 MEQ/L Anion Gap 9 MEQ/L Estimat Glomerular Filtration Rate 49 ML/MIN Salicylates Level LESS THAN 1.7 MG/DL Acetaminophen Level LESS THAN 2.0 MCG/ML Ethyl Alcohol Level LESS THAN 3 MG/DL Urine Opiates Screen NEG Urine Barbiturates Screen NEG Urine Amphetamines Screen NEG Urine Benzodiazepines Screen NEG Urine Cocaine Screen NEG Urine Cannabinoids Screen NEG Vitals/IOs Vital Signs Date Time Temp Pulse Resp B/P (MAP) Pulse Ox O2 Delivery O2 Flow Rate FiO2 03/24/17 05:41 97.6 67 18 119/70 (86) 98 Assessment & Plan Problem List: (1) Bipolar disorder, current episode mixed, severe, with psychotic features ICD Codes: F31.64 - Bipolar disorder, current episode mixed, severe, with psychotic features Assessment & Plan Estimated LOS: days patient continues vigilant depressed though denying voices or visions today. We'll restart his medication of Seroquel 75 mg twice a day. Continues other medications. Of this free fairly short stay and was returned to his [facility] Justification for Cont. Inpt. At this time patient decompensate in place to the lower level of care Discharge Planning Hopefully return to his primary [facility] of they will accept him Request HC Surrog/Guard Advoc?: Tyler Singletary MD Mar 24, 2017 11:24
--- NOTE | 2017-03-24 11:52 | PD.CONS ---
HPI Service [facility] Hospitalists Consult Requested By Psychiatric services Reason for Consult Medical management Primary Care Physician No Primary Care Physician Diagnoses: History of Present Illness Written by Charlene Jurado, acting as scribe for Dr. Viera on 03/24/17 at 11:39. This is a 72-year-old male with a past medical history significant for bipolar disorder, depression, anemia, BPH and possible underlying chronic kidney disease with a complex nodule found on the right kidney during his last admission in December of this year who is admitted to the inpatient psychiatric unit under [place] act due to suicidal ideation. Hospitalist consult requested for medical management. Patient seen and examined. At present patient denies any complaints. He denies any fever or chills. Denies any chest pain or shortness of breath. He reports good appetite with adequate hydration. He denies any nausea, vomiting or chest pain. He denies any urinary complaints, diarrhea or constipation. Review of Systems Except as stated in HPI: all other systems reviewed are Neg Past Family Social History Allergies: Coded Allergies: divalproex sodium (Unverified Allergy, Severe, 03/23/17) olanzapine (Unverified Allergy, Severe, 03/23/17) methylphenidate (Unverified Allergy, Unknown, 03/23/17) Past Medical History Bipolar disorder Depression Anxiety BPH Anemia currently undergoing infusions Past Surgical History Stomach surgery Appendectomy Esophageal surgery Reported Medications Vitamin D3 (Cholecalciferol) 5,000 Unit Cap 5,000 Units PO DAILY Trazodone (Trazodone HCl) 50 Mg Tab 50 Mg PO HS PRN Flomax (Tamsulosin HCl) 0.4 Mg Cap 0.4 Mg PO DAILY [Lactulose Liq] 30 ML Syrp 30 Ml PO DAILY PRN 30 Days Senna Plus 8.6-50 mg (Sennosides-Docusate Sodium) 1 Tab Tab 1 Tab PO BID Active Ordered Medications Current Medications Medications (Trade) Dose Ordered Sig/Kerry Route Start Time Stop Time Status Last Admin (Ativan) 1 mg Q6H PRN PO 03/23/17 15:45 03/23/17 21:33 (Benadryl) 50 mg HS PRN PO 03/24/17 11:00 UNV (Tylenol) 650 mg Q4H PRN PO 03/24/17 11:00 UNV (Milk Of Magnesia Liq) 30 ml DAILY PRN PO 03/24/17 11:00 UNV (Mag-Al Plus Susp Liq) 30 ml Q6H PRN PO 03/24/17 11:00 UNV (Atarax) 50 mg Q6H PRN PO 03/24/17 11:00 UNV (Vitamin D3) 5,000 units DAILY PO 03/25/17 09:00 UNV (Morenita-Colace) 1 tab BID PO 03/24/17 21:00 UNV (Flomax) 0.4 mg DAILY PO 03/24/17 11:00 UNV (Desyrel) 50 mg HS PRN PO 03/24/17 11:00 UNV Non-Formulary Medication 30 ml DAILY PRN PO 03/24/17 11:00 UNV (SEROquel) 100 mg BID PO 03/24/17 11:15 UNV Family History Sister, , liver cancer Patient has 2 brothers who are alive and healthy. Social History Patient is a lifelong nonsmoker. He denies any alcohol consumption or illicit drug use. Physical Exam Vital Signs Vital Signs Date Time Temp Pulse Resp B/P (MAP) Pulse Ox O2 Delivery O2 Flow Rate FiO2 03/24/17 05:41 97.6 67 18 119/70 (86) 98 03/23/17 17:39 98.6 58 16 124/58 (80) 99 03/23/17 16:45 74 16 143/74 (97) 100 03/23/17 12:20 98.7 105 14 139/74 (95) 97 Physical Exam GENERAL: This is a well-nourished, well-developed patient, in no apparent distress. Awake and alert. Sitting up in the day room. SKIN: No rashes, ecchymoses or lesions. Cool and dry. HEAD: Atraumatic. Normocephalic. No temporal or scalp tenderness. EYES: Pupils equal round and reactive. Extraocular motions intact. No scleral icterus. No injection or drainage. ENT: Nose without bleeding or purulent drainage. Throat without erythema, tonsillar hypertrophy or exudate. Uvula midline. Airway patent. NECK: Trachea midline. No lymphadenopathy. Supple, nontender, no meningeal signs. CARDIOVASCULAR: Regular rate and rhythm without murmurs, gallops, or rubs. RESPIRATORY: Clear to auscultation. Breath sounds equal bilaterally. No wheezes , rales, or rhonchi. GASTROINTESTINAL: Abdomen soft, non-tender, nondistended. No hepato-splenomegaly , or palpable masses. No guarding. MUSCULOSKELETAL: Extremities without clubbing, cyanosis, or edema. No joint tenderness, effusion, or edema noted. No calf tenderness. NEUROLOGICAL: Awake and alert. Able to move all extremities. Nonfocal. Normal speech. Laboratory Laboratory Tests Test 03/23/17 12:45 03/23/17 13:00 White Blood Count 5.9 Red Blood Count 3.66 Hemoglobin 10.1 Hematocrit 30.5 Mean Corpuscular Volume 83.2 Mean Corpuscular Hemoglobin 27.7 Mean Corpuscular Hemoglobin Concent 33.2 Red Cell Distribution Width 15.0 Platelet Count 209 Mean Platelet Volume 7.6 Neutrophils (%) (Auto) 72.4 Lymphocytes (%) (Auto) 19.0 Monocytes (%) (Auto) 7.7 Eosinophils (%) (Auto) 0.6 Basophils (%) (Auto) 0.3 Neutrophils # (Auto) 4.3 Lymphocytes # (Auto) 1.1 Monocytes # (Auto) 0.5 Eosinophils # (Auto) 0.0 Basophils # (Auto) 0.0 CBC Comment DIFF FINAL Differential Comment Blood Urea Nitrogen 22 Creatinine 1.42 Random Glucose 111 Total Protein 7.2 Albumin 4.2 Calcium Level 9.3 Alkaline Phosphatase 52 Aspartate Amino Transf (AST/SGOT) 29 Alanine Aminotransferase (ALT/SGPT) 45 Total Bilirubin 1.2 Sodium Level 132 Potassium Level 3.7 Chloride Level 98 Carbon Dioxide Level 24.9 Anion Gap 9 Estimat Glomerular Filtration Rate 49 Salicylates Level LESS THAN 1.7 Acetaminophen Level LESS THAN 2.0 Ethyl Alcohol Level LESS THAN 3 Urine Opiates Screen NEG Urine Barbiturates Screen NEG Urine Amphetamines Screen NEG Urine Benzodiazepines Screen NEG Urine Cocaine Screen NEG Urine Cannabinoids Screen NEG Result Diagram: 03/23/17 1245 03/23/17 1245 Assessment and Plan Assessment and Plan 72-year-old male with a past medical history significant for bipolar disorder, depression, anemia, BPH and possible underlying chronic kidney disease with a complex nodule found on the right kidney during his last admission in December of this year who is admitted to the inpatient psychiatric unit under [place] act due to suicidal ideation. Bipolar disorder Depression Anxiety Suicidal ideation - Management per psychiatric team BPH - Continue home regimen of Flomax 0.4mg daily KIRILL on possible underlying CKD - Renal ultrasound obtained December 2016 showed solid lesion midpole of the right kidney. Follow-up MRI revealed complex nodule off it inferior lateral aspect of the right kidney with recommendations for a follow-up MRI in [address]-guided biopsy. Patient included this information in his history and has follow-up scheduled. - Creatinine 1.42. Baseline appears to be around 1.2 - Avoid nephrotoxic agents - Monitor BMP - Encourage by mouth hydration Hyponatremia - Mild, appears chronic - Likely due to antipsychotics - Monitor as indicated DVT prophylaxis - Patient is ambulatory Thank you currently for this consultation. Will continue to follow along with you. This note was transcribed by roseann Jurado. I, Dr. Judd Viera personally performed the history, physical exam, and medical decision making; and confirmed the accuracy of the information in the transcribed note. Authenticated by Dr. Judd Viera on 03/24/17 at 13:01. Discussed Condition With Patient, nursing staff Charlene Jurado Mar 24, 2017 11:52 Judd Viera MD Mar 24, 2017 13:01
--- NOTE | 2017-03-24 12:25 | EKG ---
Date Performed: 03/23/2017 Time Performed: 16:06:02 PTAGE: 72 years EKG: Sinus rhythm POSSIBLE LEFT ATRIAL ENLARGEMENT BORDERLINE ECG Compared to prior tracing no significant change DOCTOR: Lauren Augustin Interpretating Date/Time 03/24/2017 12:22:11
[2017-03-24 12:34] LABS: AUTOMATED NEUTROPHIL # 4.6 TH/MM3 (1.8-7.7); BASOPHIL % 0.5 % (0.0-2.0); EOSINOPHIL # 0.1 TH/MM3 (0-0.4); EOSINOPHIL % 0.9 % (0.0-4.0); HEMATOCRIT 32.9 % (39.0-51.0); HEMO FLAGS DIFF FINAL; LYMPH % 13.7 % (9.0-44.0); LYMPHOCYTE # 0.8 TH/MM3 (1.0-4.8); MEAN CELL VOLUME 83.1 FL (80.0-100.0); MEAN CORPUSCULAR HEMOGLOBIN 27.3 PG (27.0-34.0); MEAN CORPUSCULAR HGB CONC 32.9 % (32.0-36.0); MONO % 7.6 % (0.0-8.0); NEUT % 77.3 % (16.0-70.0); PLATELET COUNT 241 TH/MM3 (150-450); RED BLOOD COUNT 3.96 MIL/MM3 (4.50-5.90); RED CELL DISTRIBUTION WIDTH 14.9 % (11.6-17.2); WHITE BLOOD COUNT 5.9 TH/MM3 (4.0-11.0)
[2017-03-24 12:50] LABS: ANION GAP 10 MEQ/L (5-15); BICARBONATE 23.4 MEQ/L (21.0-32.0); BLOOD UREA NITROGEN 21 MG/DL (7-18); CHLORIDE 100 MEQ/L (98-107); GLOMERULAR FILTRATION RATE 55 ML/MIN (>89); POTASSIUM 4.4 MEQ/L (3.5-5.1); SODIUM (NA) 133 MEQ/L (136-145)
[2017-03-24 12:51] LABS: ALT (GPT) 40 U/L (12-78); AST (GOT) 30 U/L (15-37)
[2017-03-24 13:17] LABS: ALKALINE PHOSPHATASE 56 U/L (45-117); HDL CHOLESTEROL 94.4 MG/DL (40.0-60.0); LDL CHOLESTEROL 52 MG/DL (0-99); TOTAL BILIRUBIN ADULT 1.1 MG/DL (0.2-1.0)
[2017-03-24] MEDS: TAMSULOSIN HCL 0.4 MG CAP PO SCH (13:18)
[2017-03-24] MEDS: QUEtiapine FUMARATE 100 MG TAB PO SCH ×2 (13:18→20:46)
[2017-03-24 17:41] LABS: HEMOGLOBIN A1a 1.3 %; HEMOGLOBIN A1b 1.6 %; HEMOGLOBIN P3 5.3 %
[2017-03-24 18:11] VITALS: BP 116/68; PULSE 81; RESP 18; TEMP 97.8; O2SAT 98
[2017-03-24] MEDS: DOCUSATE SODIUM 50 MG/SENNA 8.6 MG TAB PO SCH (20:46)
[2017-03-25] MEDS: traZODone HCL 50 MG TAB PO PRN ×2 (00:59→21:16)
[2017-03-25 04:00] VITALS: BP 106/55; PULSE 80; RESP 18; TEMP 97.8; O2SAT 99
[2017-03-25] MEDS: CHOLECALCIFEROL (VIT D3) 5000 UNIT CAP PO SCH (09:00)
[2017-03-25] MEDS: TAMSULOSIN HCL 0.4 MG CAP PO SCH (09:00)
[2017-03-25] MEDS: DOCUSATE SODIUM 50 MG/SENNA 8.6 MG TAB PO SCH ×2 (09:00→21:11)
[2017-03-25] MEDS: QUEtiapine FUMARATE 100 MG TAB PO SCH (09:00)
--- NOTE | 2017-03-25 10:22 | HHI.PYPN ---
Subjective Remarks Patient seen in day room with nurse Heather, chart reviewed, patient compliant medications. Per staff patient did not sleep at all last night even with the 50 mg of trazodone. Attempted to discuss this with patient today he became somewhat adamant that he wants only 50 mg of trazodone, "one pill". He still remains intense somewhat intrusive pacing with lower pressured speech. Will adjust the Seroquel to 100 mg in the morning and 200 mg at bedtime. At this time upon further assessment of patient's behavior I feel he does meet criteria for involuntary psychiatric hospitalization. Thus I will initiate first opinion petition supporting Ocon[place] act. And request second opinion petition supporting [place] act Chief Complaint: patient suicidal with increased paranoia and psychosis Review of Systems Except as stated in HPI: all other systems reviewed are Neg Mental Status Examination Appearance: Appropriate Consciousness: Alert Orientation: Person, Place, Situation Motor Activity: Normal gait Speech: Rapid, Hesitant Language: Adequate Fund of Knowledge: Adequate Attention and Concentration: Inadequate Memory: Impaired Mood: Anxious Affect: Other (good range and intensity) Thought Process & Associations: Loose associations Thought Content: Bizarre thinking Hallucination Type: Auditory (denies today) Delusion Type: Bizarre Suicidal Ideation: Yes (denies today) Suicidal Plan: No Suicidal Intention: No Homicidal Ideation: No Homicidal Plan: No Homicidal Intention: No Insight: Poor Judgment: Poor Results Labs Test 03/24/17 11:27 White Blood Count 5.9 TH/MM3 Red Blood Count 3.96 MIL/MM3 Hemoglobin 10.8 GM/DL Hematocrit 32.9 % Mean Corpuscular Volume 83.1 FL Mean Corpuscular Hemoglobin 27.3 PG Mean Corpuscular Hemoglobin Concent 32.9 % Red Cell Distribution Width 14.9 % Platelet Count 241 TH/MM3 Mean Platelet Volume 8.0 FL Neutrophils (%) (Auto) 77.3 % Lymphocytes (%) (Auto) 13.7 % Monocytes (%) (Auto) 7.6 % Eosinophils (%) (Auto) 0.9 % Basophils (%) (Auto) 0.5 % Neutrophils # (Auto) 4.6 TH/MM3 Lymphocytes # (Auto) 0.8 TH/MM3 Monocytes # (Auto) 0.5 TH/MM3 Eosinophils # (Auto) 0.1 TH/MM3 Basophils # (Auto) 0.0 TH/MM3 CBC Comment DIFF FINAL Differential Comment Blood Urea Nitrogen 21 MG/DL Creatinine 1.29 MG/DL Random Glucose 82 MG/DL Total Protein 7.5 GM/DL Albumin 4.2 GM/DL Calcium Level 10.1 MG/DL Alkaline Phosphatase 56 U/L Aspartate Amino Transf (AST/SGOT) 30 U/L Alanine Aminotransferase (ALT/SGPT) 40 U/L Total Bilirubin 1.1 MG/DL Sodium Level 133 MEQ/L Potassium Level 4.4 MEQ/L Chloride Level 100 MEQ/L Carbon Dioxide Level 23.4 MEQ/L Anion Gap 10 MEQ/L Estimat Glomerular Filtration Rate 55 ML/MIN Hemoglobin A1c 5.9 % Triglycerides Level 64 MG/DL Cholesterol Level 159 MG/DL LDL Cholesterol 52 MG/DL HDL Cholesterol 94.4 MG/DL Cholesterol/HDL Ratio 1.68 RATIO Vitamin B12 Level 348 PG/ML 25-Hydroxy Vitamin D Total 21.9 ng/ML Thyroid Stimulating Hormone 3rd Gen 0.980 uIU/ML Vitals/IOs Vital Signs Date Time Temp Pulse Resp B/P (MAP) Pulse Ox O2 Delivery O2 Flow Rate FiO2 03/25/17 04:00 97.8 80 18 106/55 (72) 99 Intake and Output 03/25/17 03/25/17 03/25/17 07:59 15:59 23:59 Intake Total 480 ml Balance 480 ml Assessment & Plan Problem List: (1) Bipolar disorder, current episode mixed, severe, with psychotic features ICD Codes: F31.64 - Bipolar disorder, current episode mixed, severe, with psychotic features Assessment & Plan Estimated LOS: days patient remains manic intense with rapid pressured speech and irritability. She medication adjustments above. At this time I feel patient does meet criteria for involuntary psychiatric hospitalization. Thus I will do first opinion petition supporting [place]con[place] act request second opinion Justification for Cont. Inpt. At this time patient will decompensate if placed in lower level of care Discharge Planning Will need to explore placement see if the prior placement would be willing to have him return Request HC Surrog/Guard Advoc?: No Tyler Batista MD Mar 25, 2017 10:22
[2017-03-25 16:06] LABS: BICARBONATE 27.5 MEQ/L (21.0-32.0); POTASSIUM 4.2 MEQ/L (3.5-5.1)
[2017-03-25 18:07] VITALS: BP 125/59; PULSE 73; RESP 18; TEMP 97.8; O2SAT 98
[2017-03-25] MEDS: QUEtiapine FUMARATE 200 MG TAB PO SCH (21:11)
[2017-03-25] MEDS: diphenhydrAMINE HCL 50 MG CAP PO PRN (21:11)
[2017-03-26 06:46] VITALS: BP 90/52; PULSE 74; RESP 18; TEMP 98.8; O2SAT 95
[2017-03-26] MEDS: TAMSULOSIN HCL 0.4 MG CAP PO SCH (08:19)
[2017-03-26] MEDS: CHOLECALCIFEROL (VIT D3) 5000 UNIT CAP PO SCH (08:19)
[2017-03-26] MEDS: QUEtiapine FUMARATE 100 MG TAB PO SCH (08:19)
[2017-03-26] MEDS: DOCUSATE SODIUM 50 MG/SENNA 8.6 MG TAB PO SCH ×2 (08:19→20:28)
[2017-03-26 09:06] VITALS: BP 110/64
--- NOTE | 2017-03-26 10:39 | HHI.PR ---
Subjective Remarks Follow-up on patient with chronic hyponatremia, KIRILL. Patient seen and examined. Patient denies any complaints at this time. States he feels well. Denies any dizziness or lightheadedness. Denies any fever or chills. Denies any nausea, vomiting or abdominal pain. Denies any chest pain or shortness of breath. Denies any urinary complaints, diarrhea or constipation. Patient does complain of fungal toenail infection and is requesting someone cut his nails. Objective Vitals Vital Signs Date Time Temp Pulse Resp B/P (MAP) Pulse Ox O2 Delivery O2 Flow Rate FiO2 03/26/17 09:06 110/64 (79) 03/26/17 06:46 98.8 74 18 90/52 (65) 95 03/25/17 18:07 97.8 73 18 125/59 (81) 98 I/O 03/25/17 03/25/17 03/25/17 03/26/17 03/26/17 03/26/17 07:00 15:00 23:00 07:00 15:00 23:00 Intake Total 480 ml 120 ml Balance 480 ml 120 ml Intake Oral 480 ml 120 ml # Voids 2 2 Result Diagram: 03/24/17 1127 03/25/17 1400 Objective Remarks GENERAL: This is a well-nourished, well-developed patient, in no apparent distress. Awake and alert. Ambulating in room. SKIN: Cool and dry. (+) Onychomycosis with long, thickened toenails bilateral greater toes. HEAD: Atraumatic. Normocephalic. EYES: Extraocular motions intact. No scleral icterus. No injection or drainage. ENT: Nose without bleeding or purulent drainage. Airway patent. MMM. NECK: Trachea midline. CARDIOVASCULAR: Regular rate and rhythm without murmurs, gallops, or rubs. RESPIRATORY: Clear to auscultation. Breath sounds equal bilaterally. No wheezes , rales, or rhonchi. GASTROINTESTINAL: Abdomen soft, non-tender, nondistended. No hepato-splenomegaly , or palpable masses. No guarding. MUSCULOSKELETAL: Extremities without clubbing, cyanosis, or edema. No calf tenderness. NEUROLOGICAL: Awake and alert. Able to move all extremities. Nonfocal. Normal speech. Medications and IVs Current Medications Medications (Trade) Dose Ordered Sig/Kerry Route Start Time Stop Time Status Last Admin (Ativan) 1 mg Q6H PRN PO 03/23/17 15:45 Future Hold 03/23/17 21:33 (Benadryl) 50 mg HS PRN PO 03/24/17 11:00 03/25/17 21:11 (Tylenol) 650 mg Q4H PRN PO 03/24/17 11:00 (Milk Of Magnesia Liq) 30 ml DAILY PRN PO 03/24/17 11:00 (Mag-Al Plus Susp Liq) 30 ml Q6H PRN PO 03/24/17 11:00 (Atarax) 50 mg Q6H PRN PO 03/24/17 11:00 03/25/17 02:23 (Vitamin D3) 5,000 units DAILY PO 03/25/17 09:00 03/26/17 08:19 (Morenita-Colace) 1 tab BID PO 03/24/17 21:00 03/26/17 08:19 (Flomax) 0.4 mg DAILY PO 03/24/17 13:15 03/26/17 08:19 (Desyrel) 50 mg HS PRN PO 03/24/17 11:00 03/25/17 21:16 (Lactulose Liq) 30 ml DAILY PRN PO 03/24/17 11:00 (SEROquel) 100 mg DAILY PO 03/26/17 09:00 03/26/17 08:19 (SEROquel) 200 mg HS PO 03/25/17 21:00 03/25/17 21:11 A/P Assessment and Plan 72-year-old male with a past medical history significant for bipolar disorder, depression, anemia, BPH and possible underlying chronic kidney disease with a complex nodule found on the right kidney during his last admission in December of this year who is admitted to the inpatient psychiatric unit under Oconnor act due to suicidal ideation. Bipolar disorder Depression Anxiety Suicidal ideation - Management per psychiatric team Hypotension - Patient asymptomatic - Repeat BP measurement improved - encourage po intake - monitor BPH - Continue home regimen of Flomax 0.4mg daily KIRILL on possible underlying CKD - Renal ultrasound obtained December 2016 showed solid lesion midpole of the right kidney. Follow-up MRI revealed complex nodule off it inferior lateral aspect of the right kidney with recommendations for a follow-up MRI in [address]-guided biopsy. Patient included this information in his history and has follow-up scheduled. - Creatinine near baseline. Baseline appears to be around 1.2 - Avoid nephrotoxic agents - Monitor BMP as indicated - Encourage by mouth hydration Hyponatremia - Mild, appears chronic - Likely due to antipsychotics - Monitor as indicated Onychomycosis bilateral greater toenails - Patient will need a follow-up with podiatry as outpatient DVT prophylaxis - Patient is ambulatory Discussed with patient, nursing staff and Dr. Viera Patient appears medically stable from hospitalist standpoint. Will sign off.. Please reconsult if needed. Charlene Jurado Mar 26, 2017 10:39
--- NOTE | 2017-03-26 11:35 | HHI.PYPN ---
Subjective Remarks This is a request for second opinion. Admission note was reviewed and I agree with the history. Patient was seen and case was discussed with nursing. Patient remains pleasant but disorganized with circumstantial thought process. Admits to a long history of mental health. Mood has improved, he is less labile , and is sleeping well. Tolerating his medications well Chief Complaint: patient suicidal with increased paranoia and psychosis Mental Status Examination Appearance: Appropriate Consciousness: Alert Orientation: Person, Place, Situation Motor Activity: Normal gait Speech: Pressured, Hesitant Language: Adequate Fund of Knowledge: Adequate Attention and Concentration: Inadequate Memory: Impaired Mood: Anxious Affect: Other (good range and intensity) Thought Process & Associations: Circumstantial Thought Content: Bizarre thinking Hallucination Type: Auditory (denies today) Delusion Type: Bizarre Suicidal Ideation: No Suicidal Plan: No Suicidal Intention: No Homicidal Ideation: No Homicidal Plan: No Homicidal Intention: No Insight: Poor Judgment: Poor Results Labs Test 03/25/17 14:00 Blood Urea Nitrogen 22 MG/DL Creatinine 1.28 MG/DL Random Glucose 92 MG/DL Calcium Level 10.0 MG/DL Sodium Level 130 MEQ/L Potassium Level 4.2 MEQ/L Chloride Level 95 MEQ/L Carbon Dioxide Level 27.5 MEQ/L Anion Gap 8 MEQ/L Estimat Glomerular Filtration Rate 55 ML/MIN Vitals/IOs Vital Signs Date Time Temp Pulse Resp B/P (MAP) Pulse Ox O2 Delivery O2 Flow Rate FiO2 03/26/17 09:06 110/64 (79) 03/26/17 06:46 98.8 74 18 95 Intake and Output 03/26/17 03/26/17 03/27/17 08:00 16:00 00:00 Intake Total 120 ml Balance 120 ml Assessment & Plan Problem List: (1) Bipolar disorder, current episode mixed, severe, with psychotic features ICD Codes: F31.64 - Bipolar disorder, current episode mixed, severe, with psychotic features Assessment & Plan I agree with the first opinion to continue petition. Criteria include recent manic behavior and acute psychosis Justification for Cont. Inpt. Patient would decompensate in a less restrictive setting Request HC Surrog/Guard Advoc?: No Ke Coello DO Mar 26, 2017 11:35
[2017-03-26] MEDS: QUEtiapine FUMARATE 200 MG TAB PO SCH (20:28)
[2017-03-26] MEDS: traZODone HCL 50 MG TAB PO PRN (20:28)
[2017-03-26] MEDS: diphenhydrAMINE HCL 50 MG CAP PO PRN (22:06)
[2017-03-27 06:06] VITALS: BP 110/61; PULSE 63; RESP 18; TEMP 97.8; O2SAT 98
[2017-03-27] MEDS: CHOLECALCIFEROL (VIT D3) 5000 UNIT CAP PO SCH (09:00)
[2017-03-27] MEDS: DOCUSATE SODIUM 50 MG/SENNA 8.6 MG TAB PO SCH ×2 (09:00→20:42)
[2017-03-27] MEDS: TAMSULOSIN HCL 0.4 MG CAP PO SCH (09:00)
[2017-03-27] MEDS: QUEtiapine FUMARATE 100 MG TAB PO SCH (09:00)
--- NOTE | 2017-03-27 16:56 | HHI.PYPN ---
Subjective Remarks Patient was seen and case discussed with nursing. Patient remains guarded and bizarre. He is perseverative on various times during the interview and raises his voice to make this point. He insists on giving me handshake. Per nursing he has been sociable. He is pacing. Compliant with medications. Chief Complaint: patient suicidal with increased paranoia and psychosis Mental Status Examination Appearance: Appropriate Consciousness: Alert Orientation: Person, Place, Situation Motor Activity: Normal gait Speech: Pressured, Other (loud) Language: Adequate Fund of Knowledge: Adequate Attention and Concentration: Inadequate Memory: Impaired Mood: Good Affect: Anxious Thought Process & Associations: Tangential Thought Content: Bizarre thinking Hallucination Type: Auditory (denies today) Delusion Type: Bizarre Suicidal Ideation: No Suicidal Plan: No Suicidal Intention: No Homicidal Ideation: No Homicidal Plan: No Homicidal Intention: No Insight: Poor Judgment: Poor Results Vitals/IOs Vital Signs Date Time Temp Pulse Resp B/P (MAP) Pulse Ox O2 Delivery O2 Flow Rate FiO2 03/27/17 06:06 97.8 63 18 110/61 (77) 98 Intake and Output 03/27/17 03/27/17 03/28/17 08:00 16:00 00:00 Intake Total 120 ml Balance 120 ml Assessment & Plan Problem List: (1) Bipolar disorder, current episode mixed, severe, with psychotic features ICD Codes: F31.64 - Bipolar disorder, current episode mixed, severe, with psychotic features Assessment & Plan Continue current treatment Justification for Cont. Inpt. Patient would decompensate in a less restrictive setting Request HC Surrog/Guard Advoc?: No Ke Coello DO Mar 27, 2017 16:56
[2017-03-27 19:39] VITALS: BP 129/59; PULSE 80; RESP 18; TEMP 97.6
[2017-03-27] MEDS: traZODone HCL 50 MG TAB PO PRN (20:43)
[2017-03-27] MEDS: QUEtiapine FUMARATE 200 MG TAB PO SCH (20:43)
[2017-03-27] MEDS: diphenhydrAMINE HCL 50 MG CAP PO PRN (20:43)
[2017-03-28 05:44] VITALS: BP 96/60; PULSE 65; RESP 18; TEMP 97.3
[2017-03-28] MEDS: QUEtiapine FUMARATE 100 MG TAB PO SCH (07:57)
[2017-03-28] MEDS: DOCUSATE SODIUM 50 MG/SENNA 8.6 MG TAB PO SCH (07:57)
[2017-03-28] MEDS: TAMSULOSIN HCL 0.4 MG CAP PO SCH (07:58)
[2017-03-28] MEDS: CHOLECALCIFEROL (VIT D3) 5000 UNIT CAP PO SCH (07:58)
--- NOTE | 2017-03-28 12:59 | PD.PN.STU ---
Subjective Remarks pt is a 72 y.o male who has been at the inpatient psychiatric unit at [facility] since 03/23/17. he was admitted to the hospital under frazier act by Shady eduardo and law enforcement secondary to Suicidal Ideation, hypomania, and paranoid delusions. Pt has a hx of Bipolar disorder and upon admission admitted to increase severity of depression. Also upon admission pt had auditory hallucinations and was responding to internal stimuli. During his stay , he was given Quetiapine 100 mg PO, and Lorazepam 1 mg Q6H PRN. Today, pt was seen and case was discussed with nurse. Pt seemed pleasant, alert and oriented X4. Denied depression, suicidal/homicidal ideations, hallucinations , or delusions. Had appropriate affect. Did not seem to be responding to internal stimuli. Pt seemed hopeful for his future. He states that " I have a long life ahead of me". Objective Vitals Vital Signs Date Time Temp Pulse Resp B/P (MAP) Pulse Ox O2 Delivery O2 Flow Rate FiO2 03/28/17 05:44 97.3 65 18 96/60 (72) 03/27/17 19:39 97.6 80 18 129/59 (82) I/O 03/27/17 03/27/17 03/27/17 03/28/17 03/28/17 03/28/17 07:00 15:00 23:00 07:00 15:00 23:00 Intake Total 120 ml 600 ml 240 ml 960 ml Balance 120 ml 600 ml 240 ml 960 ml Intake Oral 120 ml 600 ml 240 ml 960 ml # Voids 2 3 Result Diagram: 03/24/17 1127 03/25/17 1400 A/P Assessment and Plan 1. Bipolar Disorder Discharge Planning pt is currently stable and is able to possibly be discharged. Evy Purvis M3 Mar 28, 2017 12:59
[2017-03-28] MEDS ORDERED: QUET1TAB8 PO (13:45)
[2017-03-28] MEDS ORDERED: TAMS5CAP PO (13:45)
[2017-03-28] MEDS ORDERED: QUET1TAB9 PO (13:45)
[2017-03-28] MEDS ORDERED: SENN1TAB PO (13:45)
[2017-03-28] MEDS ORDERED: CHOL5000 PO (13:45)
--- NOTE | 2017-03-28 13:51 | HHI.DS ---
Psychiatry Discharge Summary Inpatient Psychiatric care?: Yes Advance Directive: No Mental Health AdvanceDirective: No Health Care Proxy: No Admission Admission Date Mar 23, 2017 at 15:33 Admission Diagnosis: (1) Bipolar disorder, current episode mixed, severe, with psychotic features ICD Code: F31.64 - Bipolar disorder, current episode mixed, severe, with psychotic features Brief History 72-year-old male being admitted under a Oconnor act initiated by Shady Marcos and law enforcement. Patient reportedly has a history of bipolar disorder and is currently actively suicidal. Patient does confirm with this physician that he is actively suicidal but he remains a somewhat poor historian. He appears to be responding to internal stimuli and repeats himself and nonsensical fashion. He indicated "you are involved" to this physician as well as the emergency department physician. He admits to symptoms of depression, including depressed mood, suicidality, anxiety, hopelessness and helplessness, difficulty sleeping, poor energy, and auditory hallucinations. Indeed, the patient does appear to be responding to internal stimuli and comes across as paranoid. He is also obviously unable to care for himself at this time. Tobacco Use In Past 30 Days: No Tobacco Past 30 Days Alcohol Use: Monthly or Less Hospital Course Patient's hospital stay was uneventful. While he was somewhat labile and feisty he was no significant behavior problems. He was redirectable, did well with his relationship with the staff and their interventions. He had a good weekend with compliance medication. Continues to denies suicidality homicidality voices or visions. At this time and place has been found at [facility]. Patient to be discharged today to that facility Rx 1 month follow-up [facility] Results Blood Pressure 96 / 60 Vital Signs Date Time Temp Pulse Resp B/P (MAP) Pulse Ox O2 Delivery O2 Flow Rate FiO2 03/28/17 05:44 97.3 65 18 96/60 (72) 03/27/17 06:06 98 Laboratory Tests Test 03/25/17 14:00 Blood Urea Nitrogen 22 MG/DL (7-18) Sodium Level 130 MEQ/L (136-145) Chloride Level 95 MEQ/L (98-107) Estimat Glomerular Filtration Rate 55 ML/MIN (>89) Laboratory Results Test 03/24/17 11:27 Cholesterol Level 159 MG/DL (120-200) HDL Cholesterol 94.4 MG/DL (40.0-60.0) Hemoglobin A1c 5.9 % (4.3-6.0) LDL Cholesterol 52 MG/DL (0-99) Triglycerides Level 64 MG/DL (42-150) Summary of Procedures None done Pending results at discharge: No Medications # of Antipsychotic meds at D/C: 1 Approp Antipsych med options 1 - Minimum of three failed multiple trials of monotherapy. 2 - Documented plan to taper to monotherapy due to previous use of multiple meds OR cross-taper in progress at D/C. 3 - Documentation of augmentation of Clozapine. 4 - Justification other than those listed in allowable values 1-3, document here : Discharge Discharge Date: Mar 28, 2017 Discharge Diagnosis: (1) Bipolar disorder, current episode mixed, severe, with psychotic features Diagnosis: Principal ICD Code: F31.64 - Bipolar disorder, current episode mixed, severe, with psychotic features Pt Condition on Discharge: Stable Discharge Disposition: ACLF/HALFWAY Discharge Instructions Diet Instructions: As Tolerated, No Restrictions Activities you can perform: Regular-No Restrictions Scheduled Appointment: [facility] Appointment Date: Mar 30, 2017 Appointment Time: 8:00am Discharge Time > 30 minutes Mental Status Examination Appearance: Appropriate Consciousness: Alert Orientation: Person, Place, Situation Motor Activity: Normal gait Speech: Pressured, Other (loud) Language: Adequate Fund of Knowledge: Adequate Attention and Concentration: Inadequate Memory: Impaired Mood: Good Affect: Anxious Thought Process & Associations: Tangential Thought Content: Bizarre thinking Hallucination Type: Auditory (denies today) Delusion Type: Bizarre Suicidal Ideation: No Suicidal Plan: No Suicidal Intention: No Homicidal Ideation: No Homicidal Plan: No Homicidal Intention: No Insight: Poor Judgment: Poor Discharge/Advance Care Plan Health Problems: (1) Bipolar disorder, current episode mixed, severe, with psychotic features Goals to promote your health * To prevent worsening of your condition and complications * To maintain your health at the optimal level Directions to meet your goals Take your medications as prescribed Follow your dietary instruction Follow activity as directed Keep your appointments as scheduled Take your immunizations and boosters as scheduled If your symptoms worsen call your PCP, if no PCP go to Urgent Care Center or Emergency Room For 03/01 questions related to your inpatient stay or results of tests pending at discharge, please contact Dr. Tyler Batista at Smoking is Dangerous to Your Health. Avoid second hand smoking Tyler Batista MD Mar 28, 2017 13:51
== END 2017-03-28 14:05 | DRG 885 ==
LOC: NEPE 12:19 → NEDA 15:33 → H260 17:20 → H250 03-24 09:45
PROVIDERS: ADMIT Psychiatry & Neurology Psychiatry; ATTEND Psychiatry & Neurology Psychiatry
DX: F31.9 Bipolar disorder, unspecified (principal); N17.9 Acute kidney failure, unspecified; E86.0 Dehydration; F22 Delusional disorders; E87.1 Hypo-osmolality and hyponatremia; B35.1 Tinea unguium; R45.851 Suicidal ideations; F41.9 Anxiety disorder, unspecified; N18.9 Chronic kidney disease, unspecified; N40.0 Benign prostatic hyperplasia without lower urinary tract symptoms; Z79.899 Other long term (current) drug therapy
CPT/HCPCS: 80048; 80053; 80061; 80307; 82306; 82607; 83036; 84443; 85025; 93005; 96360; 96372; J1630; J2060; J7030; Q0163

== ENCOUNTER 2017-06-02 00:13 | Inpatient (IN) | payer OTHER, MEDICAID, MEDICARE ==
[~2017-06-02] VITALS: Ht 177.8 cm; Wt 63.3 kg
[~2017-06-02 00:13] MED LIST changes: +QUET1TAB8 PO; +QUET1TAB9 PO
[2017-06-02 00:38] VITALS: BP 124/82; PULSE 69; RESP 16; TEMP 98.6; O2SAT 98
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
[2017-06-02 00:59] LABS: AUTOMATED NEUTROPHIL # 4.7 TH/MM3 (1.8-7.7); BASOPHIL % 0.4 % (0.0-2.0); EOSINOPHIL % 0.3 % (0.0-4.0); HEMATOCRIT 30.2 % (39.0-51.0); HEMOGLOBIN 10.2 GM/DL (13.0-17.0); LYMPH % 15.6 % (9.0-44.0); MEAN CELL VOLUME 86.1 FL (80.0-100.0); MEAN CORPUSCULAR HEMOGLOBIN 29.1 PG (27.0-34.0); MEAN CORPUSCULAR HGB CONC 33.8 % (32.0-36.0); MEAN PLATELET VOLUME 7.7 FL (7.0-11.0); MONO % 9.3 % (0.0-8.0); MONOCYTE # 0.6 TH/MM3 (0-0.9); NEUT % 74.4 % (16.0-70.0); PLATELET COUNT 202 TH/MM3 (150-450); RED BLOOD COUNT 3.51 MIL/MM3 (4.50-5.90); RED CELL DISTRIBUTION WIDTH 15.6 % (11.6-17.2); WHITE BLOOD COUNT 6.3 TH/MM3 (4.0-11.0)
[2017-06-02 01:30] LABS: ALBUMIN 4.1 GM/DL (3.4-5.0); ALT (GPT) 41 U/L (12-78); AST (GOT) 32 U/L (15-37); BICARBONATE 24.3 MEQ/L (21.0-32.0); BLOOD UREA NITROGEN 17 MG/DL (7-18); CALCIUM 9.3 MG/DL (8.5-10.1); CHLORIDE 100 MEQ/L (98-107); CREATININE 1.35 MG/DL (0.60-1.30); GLOMERULAR FILTRATION RATE 52 ML/MIN (>89); GLUCOSE,RANDOM 57 MG/DL (74-106); SODIUM (NA) 132 MEQ/L (136-145)
[2017-06-02 01:33] LABS: ALKALINE PHOSPHATASE 61 U/L (45-117); TOTAL BILIRUBIN ADULT 0.9 MG/DL (0.2-1.0)
[2017-06-02] MEDS ORDERED: LORazepam 2 MG TAB PO ONE (02:15)
[2017-06-02] MEDS ORDERED: DOCU100C15 PO (04:10)
[2017-06-02] MEDS ORDERED: VIST25CA PO (04:10)
[2017-06-02] MEDS ORDERED: LAMI250T PO (04:10)
[2017-06-02] MEDS ORDERED: DIPH25CA PO (04:10)
[2017-06-02] MEDS ORDERED: LEVO75TA3 PO (04:10)
[2017-06-02 07:03] VITALS: BP 117/80; PULSE 70; RESP 16; TEMP 98; O2SAT 98
[2017-06-02 11:05] LABS: BILIRUBIN, URINE NEG (NEG); BLOOD, URINE NEG (NEG); GLUCOSE,URINE NEG (NEG); KETONE, URINE TRACE mg/dL (NEG); NITRITE,URINE NEG (NEG); PH, URINE 5.5 (5.0-8.5); URINE COLOR LIGHT-YELLOW (YELLW/STRAW); URINE LEUKOCYTE ESTERASE NEG (NEG)
[2017-06-02] MEDS ORDERED: ALUMINUM/MAGNESIUM/SIMETH 30 ML CUP PO PRN (13:45)
[2017-06-02] MEDS ORDERED: MAGNESIUM HYDROXIDE SUSP 30 ML CUP PO PRN (13:45)
[2017-06-02] MEDS ORDERED: QUET1TAB8 PO (13:50)
[2017-06-02] MEDS ORDERED: DOCUSATE SODIUM 100 MG CAP PO PRN (14:00)
[2017-06-02] MEDS: TERBINAFINE 250 MG TAB PO SCH (14:00)
--- NOTE | 2017-06-02 14:13 | HHI.HP ---
Provisional Diagnosis Admission Date Jun 02, 2017 at 13:44 [place] I. Bipolar disorder, mixed, severe with psychotic features Certification of Person's Competence To Provide Express and Informed Consent I have personally examined Tyler Catherine , a person being served at [facility] on, Jun 02, 2017 13:53. Express and informed consent means consent voluntarily given in writing, by a competent person, after sufficient explanation and disclosure of the subject matter involved to enable the person to make a knowing and willful decision without any element of force, fraud, deceit, duress, or other form of constraint or coercion. This person is 18 years of age or older, is not now known to be incompetent to consent to treatment with a guardian advocate, and does not have a health care surrogate or proxy currently making medical treatment decisions. I have found this person to be one of the following: [x] Competent to provide express and informed consent, as defined above, for voluntary admission to this facility and is competent to provide express and informed consent for treatment. He/she has the consistent capacity to make well reasoned, willful, and knowing decisions concerning his or her medical or mental health treatment. The person fully and consistently understands the purpose of the admission for examination/placement and is fully capable of personally exercising all rights [place] Incompetent to provide express and informed consent to voluntary admission, and this is incompetent to provide express and informed consent to treatment. The person must be transferred to involuntary status and a petition for a guardian advocate filed with the Circuit Court. [] Refusing to provide express and informed consent to voluntary admission but is competent to provide express and informed consent for treatment. The person must be discharged or transferred to involuntary status. Form shall be completed within 24 hours of a person's arrival at the receiving facility and filed in the clinical record of each person: 1. Admitted on a voluntary basis 2. Permitted to provide express and informed consent to his/her own treatment 3. Allowed to transfer from involuntary to voluntary status 4. Prior to permitting a person to consent to his or her own treatment after having been previously found incompetent to consent to treatment. History of Present Illness Capacity: Has Capacity HPI 72-year-old male with self-admitted history of bipolar disorder, presents under a [place] act for making threats to kill himself and to go somewhere in the car and kill other people. The patient is not a good historian and becomes easily agitated with this physician and the ED staff. He is irritable, demanding and unreasonable. However, he does state that he lives in [place], in an adult living facility with approximately 5 other adults. He reports that he is certain one of the adults "Kervin" is stealing from him and the patient made threats to attack him. Mr. Catherine becomes highly agitated when discussing this matter and is convinced this other resident is stealing from him. According to the [place] act, Mr. Catherine was going to get in a car and kill other people. However, Mr. Catherine tells this physician that he does not own a car and he would have to get one. Additionally, Mr. Catherine reportedly told the emergency room attending physician that he wanted to kill himself. Obviously, the patient is disorganized in his thoughts and inconsistent in his remarks, but remains paranoid and highly agitated. Finally, the patient feels that this other resident, "Kervin" is stealing from other residents but making the items disappear. Review of Systems ROS Limitations: Clinical Condition Psychiatric: COMPLAINS OF: Agitation Except as stated in HPI: all other systems reviewed are Neg Past Psych History Psychological trauma history Denied for psychological trauma. Violence risk - others (6 mos) High Violence risk - self (6 mos) Moderate to high Substance Abuse History Drugs/Alcohol past 12 months Denied Past Family Social History Coded Allergies: divalproex sodium (Unverified Allergy, Severe, 06/02/17) olanzapine (Unverified Allergy, Severe, 06/02/17) methylphenidate (Unverified Allergy, Unknown, 06/02/17) Active Scripts Quetiapine (Quetiapine) 100 Mg Tab, 100 MG PO HS for health, #30 TAB 0 Refills Prov:Hussain Pompa MD 06/02/17 Tamsulosin (Flomax) 0.4 Mg Cap, 0.4 MG PO DAILY for health, #30 CAP 0 Refills Prov:Tyler Batista MD 03/28/17 Trazodone (Trazodone) 50 Mg Tab, 50 MG PO HS Y for INSOMNIA, #30 TAB Prov:Karla Hernandez MD 12/19/16 [Lactulose] 30 ML SYRP No Conflict Check, 30 ML PO DAILY Y for SEVERE CONSITIPATION for 30 Days, ML Prov:Karla Hernandez MD 12/19/16 Reported Medications Hydroxyzine Pamoate (Vistaril) 25 Mg Cap, 25 MG PO HS, CAP 0 Refills 06/02/17 Docusate Sodium (Docusate Sodium) 100 Mg Cap, 100 MG PO BID Y for CONSTIPATION, #60 CAP 0 Refills 06/02/17 Diphenhydramine (Diphenhydramine) 25 Mg Cap, 25 MG PO HS Y for INSOMNIA, CAP 0 Refills 06/02/17 Terbinafine (Lamisil) 250 Mg Tab, 250 MG PO DAILY for Manage Fungal Infection, TAB 0 Refills 06/02/17 Levothyroxine (Levothyroxine) 75 Mcg Tab, 75 MCG PO DAILY for Thyroid, #30 TAB 0 Refills 06/02/17 Discontinued Scripts Sennosides-Docusate Sodium (Senna Plus 8.6-50 mg) 8.6 Mg-50 Mg Tab, 1 TAB PO BID for health, #60 TAB 0 Refills Prov:Tyler Batista MD 03/28/17 Quetiapine (Quetiapine) 200 Mg Tab, 200 MG PO HS for health, #30 TAB 0 Refills Prov:Tyler Batista MD 03/28/17 Cholecalciferol (Vitamin D3) 5,000 Unit Cap, 5000 UNITS PO DAILY for health, # 30 CAP 0 Refills Prov:Tyler Batista MD 03/28/17 Cholecalciferol (Vitamin D3) 5,000 Unit Cap, 5000 UNITS PO DAILY for Nutritional Supplement, #30 CAP Prov:Ministerio De Leon 12/20/16 Tamsulosin (Flomax) 0.4 Mg Cap, 0.4 MG PO DAILY, #30 CAP Prov:Karla Hernandez MD 12/19/16 Sennosides-Docusate Sodium (Senna Plus 8.6-50 mg) 1 Tab Tab, 1 TAB PO BID, #60 TAB Prov:Karla Hernandez MD 12/19/16 Current Medications Medications (Trade) Dose Ordered Sig/Kerry Route Start Time Stop Time Status Last Admin (Ativan) 1 mg Q6H PRN PO 06/02/17 13:45 (Ativan Inj) 1 mg Q6H PRN IM 06/02/17 13:45 (Tylenol) 650 mg Q4H PRN PO 06/02/17 13:45 (Milk Of Magnesia Liq) 30 ml DAILY PRN PO 06/02/17 13:45 (Mag-Al Plus Susp Liq) 30 ml Q6H PRN PO 06/02/17 13:45 (Flomax) 0.4 mg DAILY PO 06/02/17 14:00 UNV (LamISIL) 250 mg DAILY PO 06/02/17 14:00 UNV (Colace) 100 mg BID PRN PO 06/02/17 14:00 UNV (Synthroid) 75 mcg DAILY PO 06/02/17 14:00 UNV (SEROquel) 100 mg HS PO 06/02/17 21:00 UNV Family Psych History Patient feels mood disorders run in his family. Social History Unemployed. Receives Social Security disability. Denies alcohol or substance abuse issues. Resides in an [facility] with other individuals who have emotional and mental disorders. Patient's Strengths (min. 2) Verbal and has access to healthcare. Physical Exam GENERAL: SKIN: Warm and dry. HEAD: Normocephalic. EYES: No scleral icterus. No injection or drainage. NECK: Supple, trachea midline. No JVD or lymphadenopathy. CARDIOVASCULAR: Regular rate and rhythm without murmurs, gallops, or rubs. RESPIRATORY: Breath sounds equal bilaterally. No accessory muscle use. GASTROINTESTINAL: Abdomen soft, non-tender, nondistended. MUSCULOSKELETAL: No cyanosis, or edema. BACK: Nontender without obvious deformity. No CVA tenderness. Vital Signs Vital Signs Date Time Temp Pulse Resp B/P (MAP) Pulse Ox O2 Delivery O2 Flow Rate FiO2 06/02/17 07:03 98.0 70 16 117/80 (92) 98 Room Air Lab Results Test 06/02/17 00:50 06/02/17 10:40 White Blood Count 6.3 TH/MM3 Red Blood Count 3.51 MIL/MM3 Hemoglobin 10.2 GM/DL Hematocrit 30.2 % Mean Corpuscular Volume 86.1 FL Mean Corpuscular Hemoglobin 29.1 PG Mean Corpuscular Hemoglobin Concent 33.8 % Red Cell Distribution Width 15.6 % Platelet Count 202 TH/MM3 Mean Platelet Volume 7.7 FL Neutrophils (%) (Auto) 74.4 % Lymphocytes (%) (Auto) 15.6 % Monocytes (%) (Auto) 9.3 % Eosinophils (%) (Auto) 0.3 % Basophils (%) (Auto) 0.4 % Neutrophils # (Auto) 4.7 TH/MM3 Lymphocytes # (Auto) 1.0 TH/MM3 Monocytes # (Auto) 0.6 TH/MM3 Eosinophils # (Auto) 0.0 TH/MM3 Basophils # (Auto) 0.0 TH/MM3 CBC Comment DIFF FINAL Differential Comment Blood Urea Nitrogen 17 MG/DL Creatinine 1.35 MG/DL Random Glucose 57 MG/DL Total Protein 7.0 GM/DL Albumin 4.1 GM/DL Calcium Level 9.3 MG/DL Alkaline Phosphatase 61 U/L Aspartate Amino Transf (AST/SGOT) 32 U/L Alanine Aminotransferase (ALT/SGPT) 41 U/L Total Bilirubin 0.9 MG/DL Sodium Level 132 MEQ/L Potassium Level 4.3 MEQ/L Chloride Level 100 MEQ/L Carbon Dioxide Level 24.3 MEQ/L Anion Gap 8 MEQ/L Estimat Glomerular Filtration Rate 52 ML/MIN Ethyl Alcohol Level 4 MG/DL Urine Color LIGHT-YELLOW Urine Turbidity CLEAR Urine pH 5.5 Urine Specific [place] 1.008 Urine Protein NEG mg/dL Urine Glucose (UA) NEG mg/dL Urine Ketones TRACE mg/dL Urine Occult Blood NEG Urine Nitrite NEG Urine Bilirubin NEG Urine Urobilinogen LESS THAN 2.0 MG/DL Urine Leukocyte Esterase NEG Urine RBC 1 /hpf Urine WBC 1 /hpf Microscopic Urinalysis Comment CULT NOT INDICATED Urine Opiates Screen NEG Urine Barbiturates Screen NEG Urine Amphetamines Screen NEG Urine Benzodiazepines Screen NEG Urine Cocaine Screen NEG Urine Cannabinoids Screen NEG Mental Status Examination Appearance: Disheveled Consciousness: Alert Orientation: Person, Place, Date/Time Motor Activity: Normal gait Speech: Unremarkable Language: Adequate Fund of Knowledge: Adequate Attention and Concentration: Easily Distracted Memory: Unremarkable Mood: Irritable Affect: Labile Thought Process & Associations: Intact Thought Content: Preoccupations, Delusional Hallucination Type: None Delusion Type: Paranoid Suicidal Ideation: Yes Suicidal Plan: No Suicidal Intention: No Homicidal Ideation: Yes Homicidal Plan: Yes Homicidal Intention: No Insight: Fair Judgment: Impulsive Assessment & Plan Problem List: (1) Bipolar disorder, current episode mixed, severe, with psychotic features ICD Codes: F31.64 - Bipolar disorder, current episode mixed, severe, with psychotic features Assessment & Plan Estimated LOS: days. 72-year-old male with multiyear history of bipolar disorder, presents under a [place] act for making suicidal and homicidal threats as well as paranoid ideation. Patient is certainly in the high risk category for harming or killing himself. He also admits to homicidal thinking with the use of a car, even though he does not possess a car. He remains easily agitated , impulsive and demonstrating impaired judgment and insight. For these reasons he is being admitted for further evaluation and treatment. This physician has ordered a CBC and comprehensive metabolic panel to determine if any infectious process or metabolic process is causing or contributing to his mood instability and paranoia. Additionally, this physician ordered thyroid stimulating hormone and a hospitalist consult as the patient apparently has a history of thyroid disease and deficiencies in this area can cause mood instability and psychosis. This physician also ordered vitamin B-12 and vitamin D levels, as deficiencies in these areas can cause confusion and psychosis. This physician also ordered an EKG as many psychotropics could adversely affect the patient's cardiac conduction system. Finally, this physician spoke to the patient's nurse, Kristofer, regarding his recent behavior. Case management will also be involved to assist with further information gathering and disposition planning. Hussain Pompa MD Jun 02, 2017 14:13
[2017-06-02 15:00] VITALS: BP 108/71; PULSE 70; RESP 20; TEMP 97.4; O2SAT 100
[2017-06-02] MEDS: TAMSULOSIN HCL 0.4 MG CAP PO SCH (15:00)
[2017-06-02] MEDS: LEVOTHYROXINE SODIUM 75 MCG TAB PO SCH (15:00)
[2017-06-02 18:00] VITALS: BP 115/60; PULSE 66; RESP 18; TEMP 97.8; O2SAT 97
[2017-06-02] MEDS: LORazepam 1 MG TAB PO PRN (19:59)
[2017-06-02] MEDS ORDERED: QUEtiapine FUMARATE 100 MG TAB PO SCH (21:00)
[2017-06-03] MEDS: LEVOTHYROXINE SODIUM 75 MCG TAB PO SCH (06:01)
[2017-06-03 06:09] VITALS: BP 121/68; PULSE 68; RESP 18; TEMP 97.4; O2SAT 98
[2017-06-03] MEDS: TAMSULOSIN HCL 0.4 MG CAP PO SCH (08:43)
[2017-06-03 10:21] LABS: AUTOMATED NEUTROPHIL # 4.2 TH/MM3 (1.8-7.7); BASOPHIL % 0.3 % (0.0-2.0); EOSINOPHIL # 0.1 TH/MM3 (0-0.4); HEMATOCRIT 34.2 % (39.0-51.0); HEMOGLOBIN 11.3 GM/DL (13.0-17.0); LYMPH % 14.2 % (9.0-44.0); LYMPHOCYTE # 0.8 TH/MM3 (1.0-4.8); MEAN CELL VOLUME 87.3 FL (80.0-100.0); MEAN CORPUSCULAR HGB CONC 33.2 % (32.0-36.0); MEAN PLATELET VOLUME 8.4 FL (7.0-11.0); MONO % 6.3 % (0.0-8.0); MONOCYTE # 0.3 TH/MM3 (0-0.9); NEUT % 78.2 % (16.0-70.0); PLATELET COUNT 209 TH/MM3 (150-450); RED BLOOD COUNT 3.91 MIL/MM3 (4.50-5.90); RED CELL DISTRIBUTION WIDTH 15.4 % (11.6-17.2); WHITE BLOOD COUNT 5.3 TH/MM3 (4.0-11.0)
[2017-06-03 10:53] LABS: ALBUMIN 4.1 GM/DL (3.4-5.0); ALT (GPT) 41 U/L (12-78); AST (GOT) 25 U/L (15-37); BICARBONATE 24.2 MEQ/L (21.0-32.0); BLOOD UREA NITROGEN 24 MG/DL (7-18); CALCIUM 9.5 MG/DL (8.5-10.1); CHLORIDE 97 MEQ/L (98-107); CHOLESTEROL 165 MG/DL (120-200); CREATININE 1.38 MG/DL (0.60-1.30); GLOMERULAR FILTRATION RATE 51 ML/MIN (>89); GLUCOSE,RANDOM 190 MG/DL (74-106); SODIUM (NA) 131 MEQ/L (136-145)
[2017-06-03 11:13] LABS: ALKALINE PHOSPHATASE 63 U/L (45-117); CHOLESTEROL/ HDL RATIO 1.86 RATIO; HDL CHOLESTEROL 88.3 MG/DL (40.0-60.0); LDL CHOLESTEROL 65 MG/DL (0-99); TOTAL BILIRUBIN ADULT 0.7 MG/DL (0.2-1.0); TOTAL PROTEIN 7.3 GM/DL (6.4-8.2); TRIGLYCERIDES 60 MG/DL (42-150)
--- NOTE | 2017-06-03 13:37 | HHI.PYPN ---
Subjective Remarks Patient initially seen by Dr. Hussain Pompa who did the initial psychiatric history and physical. I have completed the initial psychiatric admission template orders. I have also done the med reconciliation reviewed. Patient seen by me with nurse Song in the [place]. Patient acknowledging being somewhat manicky acknowledges racing thoughts. He has rapid pressured speech is markedly intense and intrusive he is delusional grandiose and somewhat paranoid related to behaviors of other residents and his prison. He is vague about compliance of medication. Though he does denies suicidality. At this time he also appears to be responding to internal stimuli. Thus I feel patient does meet criteria for involuntary psychiatric hospitalization under the [place] act thus I'll do first opinion request second opinion. Though I do feel he has capacity to sign for his medications. We'll continue him on his medications for the med reconciliation but increasing the Seroquel to 100 mg twice a day. Hopeless to be fairly short stay and revealed returned this gentleman to his placement Review of Systems Constitutional: DENIES: Diaphoretic episodes, Fatigue, Fever, Weight gain, Weight loss, Chills, Dizziness, Change in appetite, Night Sweats Endocrine: DENIES: Heat/cold intolerance, Polydipsia, Polyuria, Polyphagia Eyes: DENIES: Blurred vision, Diplopia, Eye inflammation, Eye pain, Vision loss , Photosensitivity, Double Vision Ears, nose, mouth, throat: DENIES: Tinnitus, Hearing loss, Vertigo, Nasal discharge, Oral lesions, Throat pain, Hoarseness, Ear Pain, Running Nose, Epistaxis, Sinus Pain, Toothache, Odynophagia Respiratory: DENIES: Apneas, Cough, Snoring, Wheezing, Hemoptysis, Sputum production, Shortness of breath Cardiovascular: DENIES: Chest pain, Palpitations, Syncope, Dyspnea on Exertion , PND, Lower Extremity Edema, Orthopnea, Claudication Gastrointestinal: DENIES: Abdominal pain, Black stools, Bloody stools, Constipation, Diarrhea, Nausea, Vomiting, Difficulty Swallowing, Anorexia Genitourinary: DENIES: Sexual dysfunction, Urinary frequency, Urinary incontinence, Urgency, Hematuria, Dysuria, Nocturia, Penile Discharge, Testicular Pain, Testicular Swelling Musculoskeletal: DENIES: Joint pain, Muscle aches, Stiffness, Joint Swelling, Back pain, Neck pain Integumentary: DENIES: Abnormal pigmentation, Nail changes, Pruritus, Rash Hematologic/lymphatic: DENIES: Bruising, Lymphadenopathy Immunologic/allergic: DENIES: Eczema, Urticaria Neurologic: DENIES: Abnormal gait, Headache, Localized weakness, Paresthesias, Seizures, Speech Problems, Tremor, Poor Balance Psychiatric: COMPLAINS OF: Anxiety, Mood changes, Agitation, Delusions Mental Status Examination Appearance: Disheveled Consciousness: Alert Orientation: Person, Place, Date/Time Motor Activity: Normal gait Speech: Unremarkable Language: Adequate Fund of Knowledge: Adequate Attention and Concentration: Easily Distracted Memory: Unremarkable Mood: Irritable Affect: Labile Thought Process & Associations: Intact Thought Content: Preoccupations, Delusional Hallucination Type: None Delusion Type: Paranoid Suicidal Ideation: Yes Suicidal Plan: No Suicidal Intention: No Homicidal Ideation: Yes Homicidal Plan: Yes Homicidal Intention: No Insight: Fair Judgment: Impulsive Results Labs Test 06/03/17 08:27 White Blood Count 5.3 TH/MM3 Red Blood Count 3.91 MIL/MM3 Hemoglobin 11.3 GM/DL Hematocrit 34.2 % Mean Corpuscular Volume 87.3 FL Mean Corpuscular Hemoglobin 29.0 PG Mean Corpuscular Hemoglobin Concent 33.2 % Red Cell Distribution Width 15.4 % Platelet Count 209 TH/MM3 Mean Platelet Volume 8.4 FL Neutrophils (%) (Auto) 78.2 % Lymphocytes (%) (Auto) 14.2 % Monocytes (%) (Auto) 6.3 % Eosinophils (%) (Auto) 1.0 % Basophils (%) (Auto) 0.3 % Neutrophils # (Auto) 4.2 TH/MM3 Lymphocytes # (Auto) 0.8 TH/MM3 Monocytes # (Auto) 0.3 TH/MM3 Eosinophils # (Auto) 0.1 TH/MM3 Basophils # (Auto) 0.0 TH/MM3 CBC Comment DIFF FINAL Differential Comment Blood Urea Nitrogen 24 MG/DL Creatinine 1.38 MG/DL Random Glucose 190 MG/DL Total Protein 7.3 GM/DL Albumin 4.1 GM/DL Calcium Level 9.5 MG/DL Alkaline Phosphatase 63 U/L Aspartate Amino Transf (AST/SGOT) 25 U/L Alanine Aminotransferase (ALT/SGPT) 41 U/L Total Bilirubin 0.7 MG/DL Sodium Level 131 MEQ/L Potassium Level 4.3 MEQ/L Chloride Level 97 MEQ/L Carbon Dioxide Level 24.2 MEQ/L Anion Gap 10 MEQ/L Estimat Glomerular Filtration Rate 51 ML/MIN Triglycerides Level 60 MG/DL Cholesterol Level 165 MG/DL LDL Cholesterol 65 MG/DL HDL Cholesterol 88.3 MG/DL Cholesterol/HDL Ratio 1.86 RATIO Vitamin B12 Level 659 PG/ML 25-Hydroxy Vitamin D Total 33.9 ng/ML Thyroid Stimulating Hormone 3rd Gen 1.210 uIU/ML Vitals/IOs Vital Signs Date Time Temp Pulse Resp B/P (MAP) Pulse Ox O2 Delivery O2 Flow Rate FiO2 06/03/17 06:09 97.4 68 18 121/68 (85) 98 06/02/17 07:03 Room Air Intake and Output 06/03/17 06/03/17 06/04/17 08:00 16:00 00:00 Intake Total 480 ml Balance 480 ml Assessment & Plan Problem List: (1) Bipolar disorder, current episode mixed, severe, with psychotic features ICD Codes: F31.64 - Bipolar disorder, current episode mixed, severe, with psychotic features Assessment & Plan Estimated LOS: days patient manic delusional and psychotic. This time he does meet criteria for involuntary psychiatric hospitalization I will do first opinion request second opinion. Justification for Cont. Inpt. At this time patient will decompensate the placed in the lower level of care Discharge Planning Hopefully to return to his prior placement Request HC Surrog/Guard Advoc?: No Tyler Batista MD Jun 03, 2017 13:37
--- NOTE | 2017-06-03 13:53 | PD.CONS ---
HPI Service [facility] Consult Requested By Dr. Pompa Reason for Consult Medical management Primary Care Physician Non-Staff Diagnoses: History of Present Illness This is a 72-year-old male with history of bipolar disorder, hyperlipidemia, and BPH presented with psychosis. Patient was [place] act due to threats to kill himself and others. During my interview the patient had tangential thoughts but were able to answer questions once redirected. He stated that he knows he he's here for psychiatric issues. He stated that someone in [facility] is taking his things. Otherwise patient stated that he is very healthy does not have any medical conditions. He does state that he gets intermittent diarrhea and constipation that he's had for 15 years. Patient is on lactulose and stated that his stools are loose. Lactulose was discontinued. Otherwise he denies any abdominal pain. All other review system reviewed and negative. Past Family Social History Allergies: Coded Allergies: divalproex sodium (Unverified Allergy, Severe, 06/02/17) olanzapine (Unverified Allergy, Severe, 06/02/17) methylphenidate (Unverified Allergy, Unknown, 06/02/17) Past Medical History BPH Hypothyroidism IBS Onychomycosis Past Surgical History Broken arm repair at the age of 15 Appendectomy 1972 Esophageal strictures status post balloon dilatation 1971 Reported Medications Reported Meds & Active Scripts Active Quetiapine (Quetiapine Fumarate) 100 Mg Tab 100 Mg PO HS Flomax (Tamsulosin HCl) 0.4 Mg Cap 0.4 Mg PO DAILY Trazodone (Trazodone HCl) 50 Mg Tab 50 Mg PO HS PRN [Lactulose Liq] 30 ML Syrp 30 Ml PO DAILY PRN 30 Days Reported Vistaril (Hydroxyzine Pamoate) 25 Mg Cap 25 Mg PO HS Docusate Sodium 100 Mg Cap 100 Mg PO BID PRN Diphenhydramine (Diphenhydramine HCl) 25 Mg Cap 25 Mg PO HS PRN Lamisil (Terbinafine) 250 Mg Tab 250 Mg PO DAILY Levothyroxine (Levothyroxine Sodium) 75 Mcg Tab 75 Mcg PO DAILY Active Ordered Medications Current Medications Lorazepam (Ativan) 2 mg ONCE ONCE PO Last administered on 06/02/17t 02:38; Start 06/02/17 at 02:15; Stop 06/02/17 at 02:16; Status DC Lorazepam (Ativan) 1 mg Q6H PRN PO MODERATE TO SEVERE ANXIETY Last administered on 06/02/17 19:59; Start 06/02/17 at 13:45 Lorazepam (Ativan Inj) 1 mg Q6H PRN IM MODERATE TO SEVERE ANXIETY; Start 06/02 at 13:45 Acetaminophen (Tylenol) 650 mg Q4H PRN PO Pain 1-5 or Temp >101F; Start at 13:45 Magnesium Hydroxide (Milk Of Magnesia Liq) 30 ml DAILY PRN PO MILD CONSTIPATION ; Start 06/02/17 at 13:45 Al Hydrox/Mg Hydrox/Simethicone (Mag-Al Plus Susp Liq) 30 ml Q6H PRN PO DYSPEPSIA; Start 06/02/17 at 13:45 Tamsulosin HCl (Flomax) 0.4 mg DAILY PO Last administered on 06/03/17 08:43; Start 06/02/17 at 14:00 Terbinafine HCl (LamISIL) 250 mg Q24H PO ; Start 06/02/17 at 14:00 Docusate Sodium (Colace) 100 mg BID PRN PO MODERATE CONSTIPATION; Start at 14:00 Levothyroxine Sodium (Synthroid) 75 mcg DAILY@0600 PO Last administered on 06:01; Start 06/02/17 at 14:00 Quetiapine Fumarate (SEROquel) 100 mg HS PO Last administered on 06/02/17 19: 59; Start 06/02/17 at 21:00; Stop 06/03/17 at 13:30; Status DC Quetiapine Fumarate (SEROquel) 100 mg BID PO ; Start 06/03/17 at 21:00; Status UNV Diphenhydramine HCl (Benadryl) 50 mg HS PRN PO INSOMNIA; Start 06/03/17 at 13: 30; Status UNV Hydroxyzine HCl (Atarax) 50 mg Q6H PRN PO ANXIETY; Start 06/03/17 at 13:30; Status UNV Family History Sister had history of liver cancer. Social History Patient stated that he lives in [facility]. Denies any alcohol illicit drug use. Smoking tobacco in 1972. Physical Exam Vital Signs Vital Signs Date Time Temp Pulse Resp B/P (MAP) Pulse Ox O2 Delivery O2 Flow Rate FiO2 06/03/17 06:09 97.4 68 18 121/68 (85) 98 06/02/17 18:00 97.8 66 18 115/60 (78) 97 06/02/17 16:18 06/02/17 15:00 97.4 70 20 108/71 (83) 100 Physical Exam GENERAL: This is a well-nourished, well-developed patient, in no apparent distress. SKIN: No rashes, ecchymoses or lesions. Cool and dry. HEAD: Atraumatic. Normocephalic. No temporal or scalp tenderness. EYES: Pupils equal round and reactive. Extraocular motions intact. No scleral icterus. No injection or drainage. ENT: Nose without bleeding, purulent drainage or septal hematoma. Throat without erythema, tonsillar hypertrophy or exudate. Uvula midline. Airway patent. NECK: Trachea midline. No JVD or lymphadenopathy. Supple, nontender, no meningeal signs. CARDIOVASCULAR: Regular rate and rhythm without murmurs, gallops, or rubs. RESPIRATORY: Clear to auscultation. Breath sounds equal bilaterally. No wheezes , rales, or rhonchi. GASTROINTESTINAL: Abdomen soft, non-tender, nondistended. No hepato-splenomegaly , or palpable masses. No guarding. MUSCULOSKELETAL: Extremities without clubbing, cyanosis, or edema. No joint tenderness, effusion, or edema noted. No calf tenderness. Negative Homans sign bilaterally. NEUROLOGICAL: Awake and alert. Cranial nerves II through XII intact. Motor and sensory grossly within normal limits. Five out of 5 muscle strength in all muscle groups. Normal speech. Laboratory Laboratory Tests Test 06/03/17 08:27 White Blood Count 5.3 Red Blood Count 3.91 Hemoglobin 11.3 Hematocrit 34.2 Mean Corpuscular Volume 87.3 Mean Corpuscular Hemoglobin 29.0 Mean Corpuscular Hemoglobin Concent 33.2 Red Cell Distribution Width 15.4 Platelet Count 209 Mean Platelet Volume 8.4 Neutrophils (%) (Auto) 78.2 Lymphocytes (%) (Auto) 14.2 Monocytes (%) (Auto) 6.3 Eosinophils (%) (Auto) 1.0 Basophils (%) (Auto) 0.3 Neutrophils # (Auto) 4.2 Lymphocytes # (Auto) 0.8 Monocytes # (Auto) 0.3 Eosinophils # (Auto) 0.1 Basophils # (Auto) 0.0 CBC Comment DIFF FINAL Differential Comment Blood Urea Nitrogen 24 Creatinine 1.38 Random Glucose 190 Total Protein 7.3 Albumin 4.1 Calcium Level 9.5 Alkaline Phosphatase 63 Aspartate Amino Transf (AST/SGOT) 25 Alanine Aminotransferase (ALT/SGPT) 41 Total Bilirubin 0.7 Sodium Level 131 Potassium Level 4.3 Chloride Level 97 Carbon Dioxide Level 24.2 Anion Gap 10 Estimat Glomerular Filtration Rate 51 Triglycerides Level 60 Cholesterol Level 165 LDL Cholesterol 65 HDL Cholesterol 88.3 Cholesterol/HDL Ratio 1.86 Vitamin B12 Level 659 25-Hydroxy Vitamin D Total 33.9 Thyroid Stimulating Hormone 3rd Gen 1.210 Result Diagram: 06/03/1782606/03/17826 Assessment and Plan Assessment and Plan This is an 72-year-old male with bipolar disorder, hypothyroidism, BPH who presented with psychosis Bipolar disorder with psychosis/[place]nor act/homicidal and suicidal ideations -Patient admitted to inpatient psych. Management per psychiatrist. Hypothyroidism/BPH/onychomycosis -Home medication already resumed. Continue home medication. Chronic kidney disease -Patient at his baseline. Avoid nephrotoxins. IBS -Since stools are more watery now. Will continue to hold lactulose. Use lactulose as needed for constipation. DVT prophylaxis -Encourage ambulation. Patient is medically stable. Will follow up when necessary for any concerns. Discussed Condition With Patient. Carmina Henson MD Jun 03, 2017 13:53
[2017-06-03] MEDS: TERBINAFINE 250 MG TAB PO SCH (14:36)
[2017-06-03 14:45] LABS: HEMOGLOBIN A1C 5.7 % (4.3-6.0)
[2017-06-03 18:10] VITALS: BP 120/71; PULSE 69; RESP 18; TEMP 98.6; TEMP 98.7; O2SAT 97
[2017-06-03] MEDS: diphenhydrAMINE HCL 50 MG CAP PO PRN (20:29)
[2017-06-03] MEDS: QUEtiapine FUMARATE 100 MG TAB PO SCH (20:30)
[2017-06-04] MEDS: LEVOTHYROXINE SODIUM 75 MCG TAB PO SCH (02:44)
[2017-06-04] MEDS: LORazepam 1 MG TAB PO PRN (02:44)
[2017-06-04 05:00] VITALS: BP 112/53; PULSE 67; RESP 18; TEMP 97.4; O2SAT 99
[2017-06-04] MEDS: QUEtiapine FUMARATE 100 MG TAB PO SCH ×2 (08:26→20:08)
[2017-06-04] MEDS: TAMSULOSIN HCL 0.4 MG CAP PO SCH (08:26)
[2017-06-04] MEDS: TERBINAFINE 250 MG TAB PO SCH (13:52)
--- NOTE | 2017-06-04 16:39 | HHI.PYPN ---
Subjective Remarks This is a request for second opinion. Admission note was reviewed and I agree with this contents. Patient was seen and case discussed with nursing. Patient is hyperverbal, pressured, grandiose and quite irritable. He is paranoid that his roommate was stealing items from him and others and began to repeat in the riot act. Patient says that this act is a former Stateless law and he later states he is the highest IQ in the world. Denies auditory visual hallucinations. Has not needed any ETO Mental Status Examination Appearance: Disheveled Consciousness: Alert Orientation: Person, Place, Date/Time Motor Activity: Normal gait Speech: Unremarkable Language: Adequate Fund of Knowledge: Adequate Attention and Concentration: Easily Distracted Memory: Unremarkable Mood: Irritable Affect: Labile Thought Process & Associations: Intact Thought Content: Preoccupations, Delusional Hallucination Type: None Delusion Type: Paranoid, Other (grandiose) Suicidal Ideation: Yes Suicidal Plan: No Suicidal Intention: No Homicidal Ideation: Yes Homicidal Plan: Yes Homicidal Intention: No Insight: Fair Judgment: Impulsive Results Vitals/IOs Vital Signs Date Time Temp Pulse Resp B/P (MAP) Pulse Ox O2 Delivery O2 Flow Rate FiO2 06/04/17 05:00 97.4 67 18 112/53 (72) 99 06/02/17 07:03 Room Air Intake and Output 06/04/17 06/04/17 06/05/17 08:00 16:00 00:00 Intake Total 680 ml Balance 680 ml Assessment & Plan Problem List: (1) Bipolar disorder, current episode mixed, severe, with psychotic features ICD Codes: F31.64 - Bipolar disorder, current episode mixed, severe, with psychotic features Assessment & Plan I agree with the first opinion to continue petition. Criteria include acute psychosis Justification for Cont. Inpt. Patient will decompensate in a less restrictive setting Request HC Surrog/Guard Advoc?: No Ke Coello DO Jun 04, 2017 16:39
[2017-06-04 18:18] VITALS: BP 101/58; PULSE 76; RESP 18; TEMP 98.3; O2SAT 98
[2017-06-04] MEDS: diphenhydrAMINE HCL 50 MG CAP PO PRN (20:08)
[2017-06-05] MEDS: hydrOXYzine HCL 50 MG TAB PO PRN (03:26)
[2017-06-05] MEDS: LEVOTHYROXINE SODIUM 75 MCG TAB PO SCH (05:10)
[2017-06-05 06:14] VITALS: BP 116/68; PULSE 66; RESP 18; TEMP 97.7; O2SAT 100
[2017-06-05] MEDS: TAMSULOSIN HCL 0.4 MG CAP PO SCH (09:00)
[2017-06-05] MEDS: QUEtiapine FUMARATE 100 MG TAB PO SCH ×2 (09:00→20:34)
--- NOTE | 2017-06-05 10:02 | HHI.PR ---
Subjective Remarks Follow up bipolar disorder. Patient seen and examined, sitting up in chair comfortably. Still complaints of watery stools. Eating well, denies any nausea or vomiting. Ambulating well. Denies any new acute complaints. Objective Vitals Vital Signs Date Time Temp Pulse Resp B/P (MAP) Pulse Ox O2 Delivery O2 Flow Rate FiO2 06/05/17 06:14 97.7 66 18 116/68 (84) 100 06/04/17 18:18 98.3 76 18 101/58 (72) 98 I/O 06/04/17 06/04/17 06/04/17 06/05/17 06/05/17 06/05/17 07:00 15:00 23:00 07:00 15:00 23:00 Intake Total 680 ml 480 ml Balance 680 ml 480 ml Intake Oral 680 ml 480 ml # Voids 3 Result Diagram: 06/03/1782606/03/17826 Objective Remarks GENERAL: This is a well-nourished, well-developed patient, in no apparent distress. SKIN: No rashes, ecchymoses or lesions. Cool and dry. HEAD: Atraumatic. Normocephalic. No temporal or scalp tenderness. EYES: Pupils equal round and reactive. Extraocular motions intact. No scleral icterus. No injection or drainage. ENT: Nose without bleeding, purulent drainage or septal hematoma. Throat without erythema, tonsillar hypertrophy or exudate. Uvula midline. Airway patent. NECK: Trachea midline. No JVD or lymphadenopathy. Supple, nontender, no meningeal signs. CARDIOVASCULAR: Regular rate and rhythm without murmurs, gallops, or rubs. RESPIRATORY: Clear to auscultation. Breath sounds equal bilaterally. No wheezes , rales, or rhonchi. GASTROINTESTINAL: Abdomen soft, non-tender, nondistended. No guarding. MUSCULOSKELETAL: Extremities without clubbing, cyanosis, or edema. No joint tenderness, effusion, or edema noted NEUROLOGICAL: Awake and alert. Cranial nerves II through XII intact. Motor and sensory grossly within normal limits. Five out of 5 muscle strength in all muscle groups. Normal speech. A/P Assessment and Plan This is an 72-year-old male with bipolar disorder, hypothyroidism, BPH who presented with psychosis: Bipolar disorder with psychosis/[place] act/homicidal and suicidal ideations Patient admitted to inpatient psych. Management per psychiatrist. Hypothyroidism/BPH/onychomycosis Home medication already resumed. Continue home medication. Chronic kidney disease Patient at his baseline. Avoid nephrotoxins. IBS Continued watery stools with some improvement. Will continue to hold lactulose. Use lactulose as needed for constipation. DVT prophylaxis Encourage ambulation. Patient is medically stable. Will sign off. Please follow up with any further concerns. Norah Nieves Jun 05, 2017 10:02
--- NOTE | 2017-06-05 13:56 | HHI.PYPN ---
Subjective Remarks Patient was seen and case discussed with nursing. Patient is grandiose and sexually preoccupied with the nurse today. Says he is working on 2 books. No agitated behavior. Getting along well with others. Compliant with medications Mental Status Examination Appearance: Disheveled Consciousness: Alert Orientation: Person, Place, Date/Time Motor Activity: Normal gait Speech: Unremarkable Language: Adequate Fund of Knowledge: Adequate Attention and Concentration: Easily Distracted Memory: Unremarkable Mood: Irritable Affect: Labile Thought Process & Associations: Intact Thought Content: Preoccupations, Delusional Hallucination Type: None Delusion Type: Other (grandiose) Suicidal Ideation: Yes Suicidal Plan: No Suicidal Intention: No Homicidal Ideation: Yes Homicidal Plan: Yes Homicidal Intention: No Insight: Fair Judgment: Impulsive Results Vitals/IOs Vital Signs Date Time Temp Pulse Resp B/P (MAP) Pulse Ox O2 Delivery O2 Flow Rate FiO2 06/05/17 06:14 97.7 66 18 116/68 (84) 100 06/02/17 07:03 Room Air Intake and Output 06/05/17 06/05/17 06/06/17 08:00 16:00 00:00 Intake Total 480 ml Balance 480 ml Assessment & Plan Problem List: (1) Bipolar disorder, current episode mixed, severe, with psychotic features ICD Codes: F31.64 - Bipolar disorder, current episode mixed, severe, with psychotic features Assessment & Plan Continue current treatment plan Justification for Cont. Inpt. Patient would decompensate in a less restrictive setting Request HC Surrog/Guard Advoc?: No Ke Coello DO Jun 05, 2017 13:56
[2017-06-05] MEDS: TERBINAFINE 250 MG TAB PO SCH (14:00)
[2017-06-05 18:04] VITALS: BP 131/60; PULSE 82; RESP 18; TEMP 97.6; O2SAT 100
[2017-06-05] MEDS: ACETAMINOPHEN 325 MG TAB PO PRN (20:53)
[2017-06-05] MEDS: diphenhydrAMINE HCL 50 MG CAP PO PRN (22:14)
[2017-06-06] MEDS: LORazepam 1 MG TAB PO PRN (01:11)
[2017-06-06] MEDS: hydrOXYzine HCL 50 MG TAB PO PRN (02:24)
[2017-06-06] MEDS: LEVOTHYROXINE SODIUM 75 MCG TAB PO SCH (06:29)
[2017-06-06 06:48] VITALS: BP 115/69; PULSE 73; RESP 18; TEMP 96.8; O2SAT 100
--- NOTE | 2017-06-06 08:11 | HHI.PYPN ---
Subjective Remarks Patient seen in dayroom with RN, chart review, patient compliant medications. Patient continues confused though the intensity of his affect is diminished patient somewhat more calm and appropriate. It appears she feels she may not be allowed back and is [facility] though he wishes to return there. We'll need to verify this after the iday Review of Systems Except as stated in HPI: all other systems reviewed are Neg Mental Status Examination Appearance: Disheveled Consciousness: Alert Orientation: Person, Place, Date/Time Motor Activity: Normal gait Speech: Unremarkable Language: Adequate Fund of Knowledge: Adequate Attention and Concentration: Easily Distracted Memory: Unremarkable Mood: Irritable Affect: Labile Thought Process & Associations: Intact Thought Content: Preoccupations, Delusional Hallucination Type: None Delusion Type: Other (grandiose) Suicidal Ideation: Yes Suicidal Plan: No Suicidal Intention: No Homicidal Ideation: Yes Homicidal Plan: Yes Homicidal Intention: No Insight: Fair Judgment: Impulsive Results Vitals/IOs Vital Signs Date Time Temp Pulse Resp B/P (MAP) Pulse Ox O2 Delivery O2 Flow Rate FiO2 06/06/17 06:48 96.8 73 18 115/69 (84) 100 06/02/17 07:03 Room Air Intake and Output 06/06/17 06/06/17 06/07/17 08:00 16:00 00:00 Intake Total 240 ml Balance 240 ml Assessment & Plan Problem List: (1) Bipolar disorder, current episode mixed, severe, with psychotic features ICD Codes: F31.64 - Bipolar disorder, current episode mixed, severe, with psychotic features Assessment & Plan Estimated LOS: days patient somewhat calmer less intrusive speech rate and rhythm is somewhat decreased though there is still pressure to it. Compliant medications. For now continue treatment Justification for Cont. Inpt. At this time patient will decompensate if placed in a lower level of care Discharge Planning Placement may become problematic Request HC Surrog/Guard Advoc?: No Tyler Batista MD Jun 06, 2017 08:11
[2017-06-06] MEDS: TAMSULOSIN HCL 0.4 MG CAP PO SCH (08:12)
[2017-06-06] MEDS: QUEtiapine FUMARATE 100 MG TAB PO SCH ×2 (08:12→20:47)
--- NOTE | 2017-06-06 10:18 | EKG ---
Date Performed: 06/03/2017 Time Performed: 14:16:52 PTAGE: 72 years EKG: Sinus rhythm POSSIBLE LEFT ATRIAL ENLARGEMENT BORDERLINE ECG PREVIOUS TRACING : 03/23/2017 16.06 Compared to prior tracing no significant change DOCTOR: Snehal Antony Interpretating Date/Time 06/06/2017 10:18:06
[2017-06-06] MEDS: TERBINAFINE 250 MG TAB PO SCH (14:22)
[2017-06-06 17:45] VITALS: BP 130/56; PULSE 77; RESP 18; TEMP 97.3; O2SAT 100
[2017-06-06] MEDS: diphenhydrAMINE HCL 50 MG CAP PO PRN (22:29)
[2017-06-07] MEDS: LORazepam 1 MG TAB PO PRN (03:43)
[2017-06-07] MEDS: LEVOTHYROXINE SODIUM 75 MCG TAB PO SCH (05:35)
[2017-06-07 05:42] VITALS: BP 110/59; PULSE 72; RESP 18; TEMP 97.3; O2SAT 98
[2017-06-07] MEDS: TAMSULOSIN HCL 0.4 MG CAP PO SCH (08:27)
[2017-06-07] MEDS: QUEtiapine FUMARATE 100 MG TAB PO SCH ×2 (08:27→20:34)
--- NOTE | 2017-06-07 09:50 | PD.TTN ---
Patient Problems 1. Discharge planning 2. Medication compliance 3. Knowledge deficit 4. Lack of coping skills Progress Toward Goals Provider Present: Dr. Martha Batista Provider Input: Patient continues to present in a manic state. Patient is sexually preoccupied and is intrusive and loud. Patient is compliant with medications and does not have any major behavioral issues on the unit. Will continue to monitor. Nurse(s) Input: Patient is compliant with medications and presents with pressured speech and hyperverbal. Patient is sleeping well and is attending to ADLs. Patient is pleasant. Psychiatric Counselors Present: JERARDO Zepeda Psych Therapist Input: Counselor attempted to call patient's previous [facility] ([phone]) to see if patient is able to return back. Admission was not avaliable and counselor will attempt to call again. Group Spec/RT/OT/CARRASCO Input: Patient is selective in groups. Kesha Ware Jun 07, 2017 09:50
--- NOTE | 2017-06-07 11:36 | HHI.PYPN ---
Subjective Remarks Patient seen in [facility] floor staff, chart review, patient compliant medication. 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 EKG shows little insight. Speech is rapid and pressured. For now will increase Seroquel to 150 mg twice a day Review of Systems Except as stated in HPI: all other systems reviewed are Neg Mental Status Examination Appearance: Disheveled Consciousness: Alert Orientation: Person, Place, Date/Time Motor Activity: Normal gait Speech: Unremarkable Language: Adequate Fund of Knowledge: Adequate Attention and Concentration: Easily Distracted Memory: Unremarkable Mood: Irritable Affect: Labile Thought Process & Associations: Intact Thought Content: Preoccupations, Delusional Hallucination Type: None Delusion Type: Other (grandiose) Suicidal Ideation: Yes Suicidal Plan: No Suicidal Intention: No Homicidal Ideation: Yes Homicidal Plan: Yes Homicidal Intention: No Insight: Fair Judgment: Impulsive Results Vitals/IOs Vital Signs Date Time Temp Pulse Resp B/P (MAP) Pulse Ox O2 Delivery O2 Flow Rate FiO2 06/07/17 05:42 97.3 72 18 110/59 (76) 98 Intake and Output 06/07/17 06/07/17 06/08/17 08:00 16:00 00:00 Intake Total 720 ml Balance 720 ml Assessment & Plan Problem List: (1) Bipolar disorder, current episode mixed, severe, with psychotic features ICD Codes: F31.64 - Bipolar disorder, current episode mixed, severe, with psychotic features Assessment & Plan Estimated LOS: days patient remains somewhat manic with rapid pressured speech is tangential circumstantial hyper detailed focusing on his possessions where he was living with she would like to live Justification for Cont. Inpt. At this time patient will decompensate placed in a lower level of care Discharge Planning Placement may become problematic Request HC Surrog/Guard Advoc?: No Tyler Batista MD Jun 07, 2017 11:35
[2017-06-07] MEDS ORDERED: PILL SPLITTER OTHER PRN (12:00)
[2017-06-07] MEDS: TERBINAFINE 250 MG TAB PO SCH (13:17)
[2017-06-07 18:29] VITALS: BP 119/71; PULSE 77; RESP 18; TEMP 98.8; O2SAT 99
[2017-06-07] MEDS: diphenhydrAMINE HCL 50 MG CAP PO PRN (20:39)
[2017-06-08 05:56] VITALS: BP 132/76; PULSE 76; RESP 18; TEMP 97.5; O2SAT 98
[2017-06-08] MEDS: LEVOTHYROXINE SODIUM 75 MCG TAB PO SCH (06:11)
[2017-06-08] MEDS: TAMSULOSIN HCL 0.4 MG CAP PO SCH (08:52)
[2017-06-08] MEDS: QUEtiapine FUMARATE 100 MG TAB PO SCH ×2 (08:52→21:27)
[2017-06-08] MEDS: LORazepam 1 MG TAB PO PRN (11:24)
[2017-06-08] MEDS ORDERED: LORazepam 2 MG/ML VIAL IM STA (14:06)
[2017-06-08] MEDS ORDERED: HALOPERIDOL LACTATE 5 MG/ML AMP IM STA (14:06)
[2017-06-08] MEDS ORDERED: HALOPERIDOL LACTATE 5 MG/ML AMP ONE (14:14)
--- NOTE | 2017-06-08 14:37 | HHI.PYPN ---
Subjective Remarks Patient seen on unit with floor staff, chart reviewed, patient compliant medication. Patient becomingly increasingly irritable, irritating, intrusive, invading he was personal space loud rapid pressured speech quite delusional grandiose and vaguely intimidating. Thus came to the point where it is necessary daughter when necessary for those patient of Haldol 5 mg Ativan 1 mg IM. We'll also increase his schedule Seroquel to 200 mg twice a day Review of Systems Except as stated in HPI: all other systems reviewed are Neg Mental Status Examination Appearance: Disheveled Consciousness: Alert Orientation: Person, Place, Date/Time Motor Activity: Normal gait Speech: Unremarkable Language: Adequate Fund of Knowledge: Adequate Attention and Concentration: Easily Distracted Memory: Unremarkable Mood: Irritable Affect: Labile Thought Process & Associations: Intact Thought Content: Preoccupations, Delusional Hallucination Type: None Delusion Type: Other (grandiose) Suicidal Ideation: Yes Suicidal Plan: No Suicidal Intention: No Homicidal Ideation: Yes Homicidal Plan: Yes Homicidal Intention: No Insight: Fair Judgment: Impulsive Results Vitals/IOs Vital Signs Date Time Temp Pulse Resp B/P (MAP) Pulse Ox O2 Delivery O2 Flow Rate FiO2 06/08/17 05:56 97.5 76 18 132/76 (94) 98 Assessment & Plan Problem List: (1) Bipolar disorder, current episode mixed, severe, with psychotic features ICD Codes: F31.64 - Bipolar disorder, current episode mixed, severe, with psychotic features Assessment & Plan Estimated LOS: days patient remains quite manic irritable and psychotic intrusive and intimidating. She medication adjustments above Justification for Cont. Inpt. At this time patient will decompensate the placed a lower level of care Discharge Planning Placement is becoming quite problematic Request HC Surrog/Guard Advoc?: No Tyler Batista MD Jun 08, 2017 14:37
[2017-06-08] MEDS: TERBINAFINE 250 MG TAB PO SCH (14:57)
[2017-06-08] MEDS: ACETAMINOPHEN 325 MG TAB PO PRN (21:28)
[2017-06-09 06:00] VITALS: BP 104/68; PULSE 70; RESP 16; TEMP 97.3; O2SAT 97
[2017-06-09] MEDS: LEVOTHYROXINE SODIUM 75 MCG TAB PO SCH (06:26)
[2017-06-09] MEDS: TAMSULOSIN HCL 0.4 MG CAP PO SCH (08:57)
[2017-06-09] MEDS: hydrOXYzine HCL 50 MG TAB PO PRN ×3 (08:57→20:20)
[2017-06-09] MEDS: QUEtiapine FUMARATE 100 MG TAB PO SCH ×2 (08:57→20:20)
--- NOTE | 2017-06-09 10:17 | HHI.PYPN ---
Subjective Remarks Patient seen in day room. Patient continues loud with rapid pressured speech quite intrusive grandiose, he also is making sexually inappropriate comments towards female patient sent female nursing staff showing no insight into his behaviors. Patient has medications adjusted yesterday. I also attempted a second rigid boundaries with his behaviors related to his interaction and speaking with female staff and patients. He became somewhat silly superficial and irritable. For now continue treatment Review of Systems Except as stated in HPI: all other systems reviewed are Neg Mental Status Examination Appearance: Disheveled Consciousness: Alert Orientation: Person, Place, Date/Time Motor Activity: Normal gait Speech: Unremarkable Language: Adequate Fund of Knowledge: Adequate Attention and Concentration: Easily Distracted Memory: Unremarkable Mood: Irritable Affect: Labile Thought Process & Associations: Intact Thought Content: Preoccupations, Delusional Hallucination Type: None Delusion Type: Other (grandiose) Suicidal Ideation: Yes Suicidal Plan: No Suicidal Intention: No Homicidal Ideation: Yes Homicidal Plan: Yes Homicidal Intention: No Insight: Fair Judgment: Impulsive Results Vitals/IOs Vital Signs Date Time Temp Pulse Resp B/P (MAP) Pulse Ox O2 Delivery O2 Flow Rate FiO2 06/09/17 06:00 97.3 70 16 104/68 (80) 97 Assessment & Plan Problem List: (1) Bipolar disorder, current episode mixed, severe, with psychotic features ICD Codes: F31.64 - Bipolar disorder, current episode mixed, severe, with psychotic features Assessment & Plan Estimated LOS: days patient remains quite manic and grandiose with rapid pressured speech markedly intrusive and also making sexually inappropriate comments towards female staff and nurses Justification for Cont. Inpt. At this time patient will decompensate if placed in the lower level of care Discharge Planning Anticipate returning to his retirement Request HC Surrog/Guard Advoc?: No Tyler Batista MD Jun 09, 2017 10:17
[2017-06-09] MEDS: TERBINAFINE 250 MG TAB PO SCH (14:16)
--- NOTE | 2017-06-09 16:44 | PD.TTN ---
Patient Problems 1. Discharge planning 2. Medication compliance 3. Knowledge deficit 4. Lack of coping skills Progress Toward Goals Provider Present: Dr. Martha Batista Provider Input: Patient continues to present in a manic state. Patient is sexually preoccupied and is intrusive and loud. Patient is compliant with medications and does not have any major behavioral issues on the unit. Will continue to monitor. Patient had an increase in medications due to level of intrusivness and lack of boundaries. patient continues to present in a hyperverbal and manic way. patient will continued to be monitored. Nurse(s) Input: Patient is compliant with medications and presents with pressured speech and hyperverbal. Patient is sleeping well and is attending to ADLs. Patient is pleasant. Patient continues to be intrustive and loud on the unit. Becoming increasingly irritable. patient is observed to be attending to ADLs, and eatting. Psychiatric Counselors Present: JERARDO Zepeda Psych Therapist Input: Counselor attempted to call patient's previous [facility] ([phone]) to see if patient is able to return back. Admission was not avaliable and counselor will attempt to call again. Counselor spoke with [facility] and noted that since patient did not recieve at 30 day eviction notice, patient will be returning back to faciltiy once stablized. Group Spec/RT/OT/CARRASCO Input: Patient is selective in groups. Kesha Ware Jun 09, 2017 16:44
[2017-06-09 17:02] VITALS: BP 122/74; PULSE 81; RESP 18; TEMP 97.3; O2SAT 100
[2017-06-09] MEDS: diphenhydrAMINE HCL 50 MG CAP PO PRN (20:20)
[2017-06-10] MEDS: LORazepam 1 MG TAB PO PRN (00:01)
[2017-06-10] MEDS: ACETAMINOPHEN 325 MG TAB PO PRN ×2 (02:34→23:34)
[2017-06-10] MEDS: hydrOXYzine HCL 50 MG TAB PO PRN ×2 (02:34→20:04)
[2017-06-10 05:40] VITALS: BP 129/63; PULSE 74; RESP 16; TEMP 97.5; O2SAT 98
[2017-06-10] MEDS: LEVOTHYROXINE SODIUM 75 MCG TAB PO SCH (05:54)
[2017-06-10] MEDS: QUEtiapine FUMARATE 100 MG TAB PO SCH ×2 (08:48→21:31)
[2017-06-10] MEDS: TAMSULOSIN HCL 0.4 MG CAP PO SCH (08:48)
--- NOTE | 2017-06-10 13:19 | HHI.PYPN ---
Subjective Remarks Patient seen in [place] with nurse ailyn, chart reviewed, patient compliant medications. Continues anxious hyperactive with rapid pressured speech, grandiosity and intrusiveness. Staff states patient did not sleep last night also. Patient also continues no insight. At this time we will concentrate patient Seroquel dose to 400 mg at at bedtime, we'll add Respinol 1 mg 8 AM and 4 Review of Systems Except as stated in HPI: all other systems reviewed are Neg Mental Status Examination Appearance: Disheveled Consciousness: Alert Orientation: Person, Place, Date/Time Motor Activity: Normal gait Speech: Unremarkable Language: Adequate Fund of Knowledge: Adequate Attention and Concentration: Easily Distracted Memory: Unremarkable Mood: Irritable Affect: Labile Thought Process & Associations: Intact Thought Content: Preoccupations, Delusional Hallucination Type: None Delusion Type: Other (grandiose) Suicidal Ideation: Yes Suicidal Plan: No Suicidal Intention: No Homicidal Ideation: Yes Homicidal Plan: Yes Homicidal Intention: No Insight: Fair Judgment: Impulsive Results Vitals/IOs Vital Signs Date Time Temp Pulse Resp B/P (MAP) Pulse Ox O2 Delivery O2 Flow Rate FiO2 06/10/17 05:40 97.5 74 16 129/63 (85) 98 Intake and Output 06/10/17 06/10/17 06/11/17 08:00 16:00 00:00 Intake Total 1680 ml Balance 1680 ml Assessment & Plan Problem List: (1) Bipolar disorder, current episode mixed, severe, with psychotic features ICD Codes: F31.64 - Bipolar disorder, current episode mixed, severe, with psychotic features Assessment & Plan Estimated LOS: days patient continues hyperactive manic intrusive somewhat grandiose, C medication adjustments above Justification for Cont. Inpt. At this time patient will decompensate if placed in the lower level of care Discharge Planning Placement may become problematic if he cannot return to his prior placement Request HC Surrog/Guard Advoc?: No Tyler Batista MD Jun 10, 2017 13:19
[2017-06-10] MEDS: TERBINAFINE 250 MG TAB PO SCH (14:00)
[2017-06-10] MEDS: risperiDONE 1 MG TAB PO SCH (16:00)
[2017-06-10 18:00] VITALS: BP 117/55; PULSE 72; RESP 17; TEMP 98; O2SAT 97
[2017-06-11] MEDS: ACETAMINOPHEN 325 MG TAB PO PRN ×2 (04:18→14:43)
[2017-06-11] MEDS: hydrOXYzine HCL 50 MG TAB PO PRN ×2 (04:55→21:13)
[2017-06-11] MEDS: LEVOTHYROXINE SODIUM 75 MCG TAB PO SCH (06:09)
[2017-06-11 06:29] VITALS: BP 124/72; PULSE 73; RESP 17; TEMP 98.7; O2SAT 96
[2017-06-11] MEDS: risperiDONE 1 MG TAB PO SCH ×2 (08:00→16:25)
[2017-06-11] MEDS: TAMSULOSIN HCL 0.4 MG CAP PO SCH (08:38)
[2017-06-11] MEDS: TERBINAFINE 250 MG TAB PO SCH (14:13)
--- NOTE | 2017-06-11 14:51 | HHI.PYPN ---
Subjective Remarks Pt seen and discussed with staff. He remains manic and was up all night. He is confused and delusional. He had to be redirected from proposing to a peer on unit. He was intrusive and agitated on unit in morning and received ativan IMX1. Later he had to be redirected from rifling through garbage can on the unit. He states that a kleptomanic is stalking him at his [facility]. Mental Status Examination Appearance: Disheveled Consciousness: Alert Orientation: Person, Place, Date/Time Motor Activity: Normal gait Speech: Unremarkable Language: Adequate Fund of Knowledge: Adequate Attention and Concentration: Easily Distracted Memory: Unremarkable Mood: Irritable Affect: Labile Thought Process & Associations: Intact Thought Content: Preoccupations, Delusional Hallucination Type: None Delusion Type: Other (grandiose) Suicidal Ideation: Yes Suicidal Plan: No Suicidal Intention: No Homicidal Ideation: Yes Homicidal Plan: Yes Homicidal Intention: No Insight: Fair Judgment: Impulsive Results Vitals/IOs Vital Signs Date Time Temp Pulse Resp B/P (MAP) Pulse Ox O2 Delivery O2 Flow Rate FiO2 06/11/17 06:29 98.7 73 17 124/72 (89) 96 Intake and Output 06/11/17 06/11/17 06/12/17 08:00 16:00 00:00 Intake Total 240 ml 240 ml Balance 240 ml 240 ml Assessment & Plan Problem List: (1) Bipolar disorder, current episode mixed, severe, with psychotic features ICD Codes: F31.64 - Bipolar disorder, current episode mixed, severe, with psychotic features Assessment & Plan Continue current tx plan. Estimated LOS: days Justification for Cont. Inpt. impairments in social functioning and reality testing Request HC Surrog/Guard Advoc?: Ximena Dailey MD Jun 11, 2017 14:51
[2017-06-11 18:26] VITALS: BP 139/70; PULSE 74; RESP 18; TEMP 97.4; O2SAT 97
[2017-06-11] MEDS: QUEtiapine FUMARATE 100 MG TAB PO SCH (21:13)
[2017-06-11] MEDS: diphenhydrAMINE HCL 50 MG CAP PO PRN (21:39)
[2017-06-12] MEDS: LORazepam 1 MG TAB PO PRN ×2 (00:55→20:15)
[2017-06-12 02:30] VITALS: BP 122/78; PULSE 80; RESP 18; TEMP 97.2
[2017-06-12] MEDS: LEVOTHYROXINE SODIUM 75 MCG TAB PO SCH (06:38)
[2017-06-12 07:15] VITALS: BP 93/55; PULSE 68; RESP 18; TEMP 97.2; O2SAT 97
[2017-06-12] MEDS: TAMSULOSIN HCL 0.4 MG CAP PO SCH (10:32)
[2017-06-12] MEDS: risperiDONE 1 MG TAB PO SCH ×2 (10:32→16:09)
[2017-06-12] MEDS: TERBINAFINE 250 MG TAB PO SCH (13:40)
--- NOTE | 2017-06-12 14:11 | HHI.PYPN ---
Subjective Remarks Pt seen and discussed with staff. He was labile and agitated last night. He required an ETO to maintain safety. Today he has been less manic and intrusive. No medication side effects. Mental Status Examination Appearance: Disheveled Consciousness: Alert Orientation: Person, Place, Date/Time Motor Activity: Normal gait Speech: Unremarkable Language: Adequate Fund of Knowledge: Adequate Attention and Concentration: Easily Distracted Memory: Unremarkable Mood: Irritable Affect: Labile Thought Process & Associations: Tangential Thought Content: Preoccupations, Delusional Hallucination Type: None Delusion Type: Other (grandiose) Suicidal Ideation: No Suicidal Plan: No Suicidal Intention: No Homicidal Ideation: No Homicidal Plan: No Homicidal Intention: No Insight: Fair Judgment: Impulsive Results Vitals/IOs Vital Signs Date Time Temp Pulse Resp B/P (MAP) Pulse Ox O2 Delivery O2 Flow Rate FiO2 06/12/17 07:15 97.2 68 18 93/55 (68) 97 Assessment & Plan Problem List: (1) Bipolar disorder, current episode mixed, severe, with psychotic features ICD Codes: F31.64 - Bipolar disorder, current episode mixed, severe, with psychotic features Assessment & Plan Continue current tx plan. Estimated LOS: days Justification for Cont. Inpt. impairments in reality testing and social functioning Request HC Surrog/Guard Advoc?: Ximena Dailey MD Jun 12, 2017 14:11
[2017-06-12 17:15] VITALS: BP 126/70; PULSE 77; RESP 18; TEMP 98.1; O2SAT 96
[2017-06-12] MEDS: QUEtiapine FUMARATE 100 MG TAB PO SCH (20:15)
[2017-06-13] MEDS: ACETAMINOPHEN 325 MG TAB PO PRN ×2 (04:20→10:37)
[2017-06-13 05:59] VITALS: BP 123/74; PULSE 78; RESP 18; TEMP 97.7; O2SAT 98
[2017-06-13] MEDS: LEVOTHYROXINE SODIUM 75 MCG TAB PO SCH (06:17)
[2017-06-13] MEDS: TAMSULOSIN HCL 0.4 MG CAP PO SCH (09:41)
[2017-06-13] MEDS: risperiDONE 1 MG TAB PO SCH (09:50)
[2017-06-13] MEDS: TERBINAFINE 250 MG TAB PO SCH (13:55)
--- NOTE | 2017-06-13 13:57 | HHI.PYPN ---
Subjective Remarks Patient seen and examined with nurse in coverage for Dr. Batista. Chart reviewed. Case is discussed with nursing staff. Patient's behaviors are causing considerable distress for roommate. On my examination today, the patient speaks in a rambling fashion about his habit of pointing in a direction and specifying the distance an object is from his pointer finger. He talks about two oneil ships. He tells me he has an IQ of 200. Although the individual components of his narrative are fairly linear, the totality of his report is fairly tangential. He does seem to have some recognition of the disruptiveness of his behaviors, noting "I'm public enemy #1" on the unit. He says that he has met the woman he is going to , a female patient many decades his kassi who is being discharged today. No side effects from medications. No physical complaints. Review of Systems ROS Limitations: Psychotic, Poor Historian Except as stated in HPI: all other systems reviewed are Neg Mental Status Examination Appearance: Disheveled Consciousness: Alert Orientation: Person, Place, Date/Time Motor Activity: Normal gait, Other (no motor abnormalities noted) Speech: Other (rambling) Language: Adequate Fund of Knowledge: Adequate Attention and Concentration: Easily Distracted Memory: Unremarkable Mood: Other (presently calm) Affect: Labile Thought Process & Associations: Tangential Thought Content: Preoccupations, Delusional Hallucination Type: None Delusion Type: Other (grandiose) Suicidal Ideation: No Suicidal Plan: No Suicidal Intention: No Homicidal Ideation: No Homicidal Plan: No Homicidal Intention: No Insight: Fair Judgment: Impulsive Results Labs Labs reviewed. No recent labs. Vitals/IOs Vital Signs Date Time Temp Pulse Resp B/P (MAP) Pulse Ox O2 Delivery O2 Flow Rate FiO2 06/13/17 05:59 97.7 78 18 123/74 (90) 98 Assessment & Plan Problem List: (1) Bipolar disorder, current episode mixed, severe, with psychotic features ICD Codes: F31.64 - Bipolar disorder, current episode mixed, severe, with psychotic features Assessment & Plan Titrate Risperdal to 1.5 mg twice daily to target ongoing psychotic symptoms. Continue Seroquel as ordered. To consider a mood stabilizer like lithium or Depakote. Continue to monitor on the inpatient unit. I have asked the nursing staff to try to place the patient in a private room, as I fear he will not do well with any roommate in his present state. Continue other medications and care as ordered. Justification for Cont. Inpt. Medication changes. Impairment in reality construction. High risk for decompensation and less restrictive environment. Discharge Planning Per Dr. Batista Request HC Surrog/Guard Advoc?: No Edmond Matamoros MD Jun 13, 2017 13:57
[2017-06-13 17:00] VITALS: BP 142/65; PULSE 78; RESP 16; TEMP 97.9; O2SAT 99
[2017-06-13] MEDS: LORazepam 2 MG/ML VIAL IM PRN (21:09)
[2017-06-13] MEDS: QUEtiapine FUMARATE 100 MG TAB PO SCH (21:54)
[2017-06-14] MEDS: LORazepam 1 MG TAB PO PRN ×2 (03:09→09:21)
[2017-06-14] MEDS: LEVOTHYROXINE SODIUM 75 MCG TAB PO SCH (06:43)
[2017-06-14 07:03] VITALS: BP 100/56; PULSE 79; RESP 17; TEMP 97.6; O2SAT 96
[2017-06-14] MEDS: risperiDONE 0.5 MG TAB PO SCH ×2 (08:14→16:59)
[2017-06-14] MEDS: TAMSULOSIN HCL 0.4 MG CAP PO SCH (08:14)
[2017-06-14] MEDS ORDERED: HALOPERIDOL LACTATE 5 MG/ML AMP IM STA (09:42)
[2017-06-14] MEDS ORDERED: LORazepam 2 MG/ML VIAL IM STA (09:43)
[2017-06-14] MEDS ORDERED: diphenhydrAMINE HCL 50 MG/ML VIAL IM STA (09:44)
[2017-06-14] MEDS: TERBINAFINE 250 MG TAB PO SCH (14:11)
--- NOTE | 2017-06-14 14:25 | HHI.PYPN ---
Subjective Remarks Prior to my seeing patient today staff noted the patient was markedly intrusive angry irritable demanding and somewhat threatening. He was given a milligram of Ativan with no response. This necessitated me ordering when necessary of Haldol and Ativan and Benadryl. This did help calm him. Patient seen with staff early the afternoon. He was less intrusive though still perseverating about going to [facility] tomorrow night and is need to be there. Patient continues intrusive manic with rapid pressured speech somewhat grandiose with attempts at intimidation intellectually. For now continue treatment. I did also inject adjust the scheduled Respinol today to 1.5 mg 3 times a day Review of Systems Except as stated in HPI: all other systems reviewed are Neg Mental Status Examination Appearance: Disheveled Consciousness: Alert Orientation: Person, Place, Date/Time Motor Activity: Normal gait, Other (no motor abnormalities noted) Speech: Other (rambling) Language: Adequate Fund of Knowledge: Adequate Attention and Concentration: Easily Distracted Memory: Unremarkable Mood: Other (presently calm) Affect: Labile Thought Process & Associations: Tangential Thought Content: Preoccupations, Delusional Hallucination Type: None Delusion Type: Other (grandiose) Suicidal Ideation: No Suicidal Plan: No Suicidal Intention: No Homicidal Ideation: No Homicidal Plan: No Homicidal Intention: No Insight: Fair Judgment: Impulsive Results Vitals/IOs Vital Signs Date Time Temp Pulse Resp B/P (MAP) Pulse Ox O2 Delivery O2 Flow Rate FiO2 06/14/17 07:03 97.6 79 17 100/56 (71) 96 Intake and Output 06/14/17 06/14/17 06/15/17 08:00 16:00 00:00 Intake Total 240 ml Balance 240 ml Assessment & Plan Problem List: (1) Bipolar disorder, current episode mixed, severe, with psychotic features ICD Codes: F31.64 - Bipolar disorder, current episode mixed, severe, with psychotic features Assessment & Plan Estimated LOS: days patient continues manic intrusive with a psychotic flavor. She medication adjustment today, patient was needed ETO today Justification for Cont. Inpt. At this time patient will decompensate the placed in the lower level of care Discharge Planning Placement may become quite problematic Request HC Surrog/Guard Advoc?: No Tyler Batista MD Jun 14, 2017 14:25
[2017-06-14 18:49] VITALS: BP 109/53; PULSE 65; RESP 16; TEMP 97.9; O2SAT 98
[2017-06-14] MEDS: LORazepam 2 MG/ML VIAL IM PRN (20:09)
[2017-06-14] MEDS: QUEtiapine FUMARATE 100 MG TAB PO SCH (21:18)
[2017-06-15] MEDS: LORazepam 1 MG TAB PO PRN ×2 (06:16→16:01)
[2017-06-15] MEDS: LEVOTHYROXINE SODIUM 75 MCG TAB PO SCH (06:16)
[2017-06-15 06:29] VITALS: BP 126/68; PULSE 74; RESP 17; TEMP 98.2; O2SAT 94
[2017-06-15] MEDS: risperiDONE 0.5 MG TAB PO SCH ×2 (08:00→14:43)
[2017-06-15] MEDS: TAMSULOSIN HCL 0.4 MG CAP PO SCH (09:00)
--- NOTE | 2017-06-15 11:03 | HHI.PYPN ---
Subjective Remarks Patient seen in his room with floor staff, patient has been transferred back from for his to [facility]. Chart reviewed. Patient compliant medication. Somewhat calmer today though still wishes to be discharged. Is aware of our court date tomorrow [employer]. Patient still little insight into his behaviors. Tinea treatment Review of Systems Except as stated in HPI: all other systems reviewed are Neg Mental Status Examination Appearance: Disheveled Consciousness: Alert Orientation: Person, Place, Date/Time Motor Activity: Normal gait, Other (no motor abnormalities noted) Speech: Other (rambling) Language: Adequate Fund of Knowledge: Adequate Attention and Concentration: Easily Distracted Memory: Unremarkable Mood: Other (presently calm) Affect: Labile Thought Process & Associations: Tangential Thought Content: Preoccupations, Delusional Hallucination Type: None Delusion Type: Other (grandiose) Suicidal Ideation: No Suicidal Plan: No Suicidal Intention: No Homicidal Ideation: No Homicidal Plan: No Homicidal Intention: No Insight: Fair Judgment: Impulsive Results Vitals/IOs Vital Signs Date Time Temp Pulse Resp B/P (MAP) Pulse Ox O2 Delivery O2 Flow Rate FiO2 06/15/17 06:29 98.2 74 17 126/68 (87) 94 Assessment & Plan Problem List: (1) Bipolar disorder, current episode mixed, severe, with psychotic features ICD Codes: F31.64 - Bipolar disorder, current episode mixed, severe, with psychotic features Assessment & Plan Estimated LOS: days patient continues somewhat loud and intrusive though softer than yesterday. Compliant medications. Patient scheduled for [place] tomorrow Justification for Cont. Inpt. At this time patient will decompensate if placed on the lower level of care Discharge Planning Patient states would be willing to return to his old skilled nursing if that becomes available Request HC Surrog/Guard Advoc?: No Tyler Batista MD Jun 15, 2017 11:03
[2017-06-15] MEDS: TERBINAFINE 250 MG TAB PO SCH (14:00)
[2017-06-15 18:00] VITALS: BP 126/73; PULSE 75; RESP 16; TEMP 97.1; O2SAT 93
[2017-06-15] MEDS: diphenhydrAMINE HCL 50 MG CAP PO PRN (20:09)
[2017-06-15] MEDS: QUEtiapine FUMARATE 100 MG TAB PO SCH (20:09)
[2017-06-16] MEDS: ACETAMINOPHEN 325 MG TAB PO PRN ×2 (03:55→21:09)
[2017-06-16] MEDS: LEVOTHYROXINE SODIUM 75 MCG TAB PO SCH (05:05)
[2017-06-16 06:03] VITALS: BP 139/63; PULSE 91; RESP 18; TEMP 97.6; O2SAT 97
--- NOTE | 2017-06-16 07:53 | PD.TTN ---
Patient Problems 1. Discharge planning 2. Medication compliance 3. Knowledge deficit 4. Lack of coping skills Progress Toward Goals Provider Present: Dr. Martha Batista Provider Input: Patient continues to present in a manic state. Patient is sexually preoccupied and is intrusive and loud. Patient is compliant with medications and does not have any major behavioral issues on the unit. Will continue to monitor. Patient had an increase in medications due to level of intrusivness and lack of boundaries. patient continues to present in a hyperverbal and manic way. patient will continued to be monitored. 06/16/17 Patient is calmer today. Patient has little insight into his behaviors. Patient is compliant with medication. Nurse(s) Input: Patient is compliant with medications and presents with pressured speech and hyperverbal. Patient is sleeping well and is attending to ADLs. Patient is pleasant. Patient continues to be intrustive and loud on the unit. Becoming increasingly irritable. patient is observed to be attending to ADLs, and eatting. 06/16/17 Patient is angry, insulting. giving the finger. Medication not working. No better. Angry with wo en very sexually inappropriate Psychiatric Counselors Present: Kesha Ware [facility] Psych Therapist Input: Counselor attempted to call patient's previous JAIL ([phone]) to see if patient is able to return back. Admission was not avaliable and counselor will attempt to call again. Counselor spoke with Guardian [facility] and noted that since patient did not recieve at 30 day eviction notice, patient will be returning back to faciltiy once stablized. Patient presents angry, intrusive, agitiated, discharge focus, has no insight into his behaviors. Patient's speech is clear, pressured, patient is medication compliant Group Spec/RT/OT/CARRASCO Present: Emile Up, OT Group Spec/RT/OT/CARRASCO Input: Patient is selective in groups. 06/16/17 Patient attends groups regularly. Patient was agitated yesterday and verbally aggressive. Olivia Corcoran [facility] Jun 16, 2017 07:53
[2017-06-16] MEDS: risperiDONE 0.5 MG TAB PO SCH ×2 (07:58→17:06)
[2017-06-16] MEDS: TAMSULOSIN HCL 0.4 MG CAP PO SCH (07:58)
--- NOTE | 2017-06-16 13:07 | HHI.PYPN ---
Subjective Remarks Patient seen in [place] [address] [employer] [facility], patient retained continuance. Patient continues intense labile perseverative with little insight. Is compliant with his medications. For now continue treatment. Patient states she is willing to return to his old skilled nursing Review of Systems Except as stated in HPI: all other systems reviewed are Neg Mental Status Examination Appearance: Disheveled Consciousness: Alert Orientation: Person, Place, Date/Time Motor Activity: Normal gait, Other (no motor abnormalities noted) Speech: Other (rambling) Language: Adequate Fund of Knowledge: Adequate Attention and Concentration: Easily Distracted Memory: Unremarkable Mood: Other (presently calm) Affect: Labile Thought Process & Associations: Tangential Thought Content: Preoccupations, Delusional Hallucination Type: None Delusion Type: Other (grandiose) Suicidal Ideation: No Suicidal Plan: No Suicidal Intention: No Homicidal Ideation: No Homicidal Plan: No Homicidal Intention: No Insight: Fair Judgment: Impulsive Results Vitals/IOs Vital Signs Date Time Temp Pulse Resp B/P (MAP) Pulse Ox O2 Delivery O2 Flow Rate FiO2 06/16/17 06:03 97.6 91 18 139/63 (88) 97 Intake and Output 06/16/17 06/16/17 06/17/17 08:00 16:00 00:00 Intake Total 1200 ml 120 ml Output Total 2 ml Balance 1198 ml 120 ml Assessment & Plan Problem List: (1) Bipolar disorder, current episode mixed, severe, with psychotic features ICD Codes: F31.64 - Bipolar disorder, current episode mixed, severe, with psychotic features Assessment & Plan Estimated LOS: days patient retained by [employer] [facility] with case being continued. Compliant medications. Continues with rapid pressured speech and intrusiveness Justification for Cont. Inpt. Stating patient will decompensate if placed in a lower level of care Discharge Planning Possible return to [facility] skilled nursing once stabilized Request HC Surrog/Guard Advoc?: No Tyler Batista MD Jun 16, 2017 13:07
[2017-06-16] MEDS: TERBINAFINE 250 MG TAB PO SCH (13:25)
[2017-06-16] MEDS: LORazepam 1 MG TAB PO PRN (16:55)
[2017-06-16 18:00] VITALS: BP 134/68; PULSE 87; RESP 18; TEMP 98.6; O2SAT 98
[2017-06-16] MEDS: diphenhydrAMINE HCL 50 MG CAP PO PRN (20:47)
[2017-06-16] MEDS: QUEtiapine FUMARATE 100 MG TAB PO SCH (20:47)
[2017-06-17 05:47] VITALS: BP 158/91; PULSE 64; RESP 18; TEMP 97.5; O2SAT 97
[2017-06-17] MEDS: LEVOTHYROXINE SODIUM 75 MCG TAB PO SCH (05:55)
[2017-06-17] MEDS: TAMSULOSIN HCL 0.4 MG CAP PO SCH (08:27)
[2017-06-17] MEDS: risperiDONE 0.5 MG TAB PO SCH (08:28)
--- NOTE | 2017-06-17 09:59 | HHI.PYPN ---
Subjective Remarks Patient seen in day room with floor staff, chart review, patient compliant medication. Patient continues intrusive loud labile irritable and angry. Continues to attempt to rationalize it. Though he has little insight. Will increase Respinol to 2 mg twice a day Review of Systems Except as stated in HPI: all other systems reviewed are Neg Mental Status Examination Appearance: Disheveled Consciousness: Alert Orientation: Person, Place, Date/Time Motor Activity: Normal gait, Other (no motor abnormalities noted) Speech: Other (rambling) Language: Adequate Fund of Knowledge: Adequate Attention and Concentration: Easily Distracted Memory: Unremarkable Mood: Other (presently calm) Affect: Labile Thought Process & Associations: Tangential Thought Content: Preoccupations, Delusional Hallucination Type: None Delusion Type: Other (grandiose) Suicidal Ideation: No Suicidal Plan: No Suicidal Intention: No Homicidal Ideation: No Homicidal Plan: No Homicidal Intention: No Insight: Fair Judgment: Impulsive Results Vitals/IOs Vital Signs Date Time Temp Pulse Resp B/P (MAP) Pulse Ox O2 Delivery O2 Flow Rate FiO2 06/17/17 05:47 97.5 64 18 158/91 (113) 97 Intake and Output 06/17/17 06/17/17 06/18/17 08:00 16:00 00:00 Intake Total 435 ml Balance 435 ml Assessment & Plan Problem List: (1) Bipolar disorder, current episode mixed, severe, with psychotic features ICD Codes: F31.64 - Bipolar disorder, current episode mixed, severe, with psychotic features Assessment & Plan Estimated LOS: days patient continues manic labile intrusive irritating and somewhat intimidating. She medication adjustment above Justification for Cont. Inpt. At this time patient will decompensate and placed in a lower level of care Discharge Planning Continue to work on placement issues Request HC Surrog/Guard Advoc?: No Tyler Batista MD Jun 17, 2017 09:59
[2017-06-17] MEDS: LORazepam 1 MG TAB PO PRN ×2 (12:40→21:02)
[2017-06-17] MEDS: TERBINAFINE 250 MG TAB PO SCH (12:42)
[2017-06-17] MEDS: ACETAMINOPHEN 325 MG TAB PO PRN ×2 (14:56→21:02)
[2017-06-17] MEDS: risperiDONE 1 MG TAB PO SCH (16:14)
[2017-06-17 18:17] VITALS: BP 125/71; PULSE 79; RESP 18; TEMP 97.7; O2SAT 98
[2017-06-17] MEDS: QUEtiapine FUMARATE 100 MG TAB PO SCH (20:58)
[2017-06-17] MEDS: diphenhydrAMINE HCL 50 MG CAP PO PRN (20:58)
[2017-06-18] MEDS: ACETAMINOPHEN 325 MG TAB PO PRN ×2 (05:25→23:32)
[2017-06-18] MEDS: LEVOTHYROXINE SODIUM 75 MCG TAB PO SCH (05:26)
[2017-06-18 06:12] VITALS: BP 126/70; PULSE 73; RESP 16; TEMP 97.6; O2SAT 96
[2017-06-18] MEDS: TAMSULOSIN HCL 0.4 MG CAP PO SCH (08:57)
[2017-06-18] MEDS: risperiDONE 1 MG TAB PO SCH ×2 (08:58→15:15)
[2017-06-18] MEDS: TERBINAFINE 250 MG TAB PO SCH (13:29)
[2017-06-18] MEDS: LORazepam 1 MG TAB PO PRN (15:15)
--- NOTE | 2017-06-18 16:44 | HHI.PYPN ---
Subjective Remarks Patient was seen and case discussed with nursing. Patient is entitled and grandiose. He is irritated by another patient here with cognitive dysfunction. Has poor insight and judgment and has difficulty controlling his impulses. Mental Status Examination Appearance: Disheveled Consciousness: Alert Orientation: Person, Place, Date/Time Motor Activity: Normal gait, Other (no motor abnormalities noted) Speech: Other (rambling) Language: Adequate Fund of Knowledge: Adequate Attention and Concentration: Easily Distracted Memory: Unremarkable Mood: Other (presently calm) Affect: Irritable, Labile Thought Process & Associations: Tangential Thought Content: Preoccupations, Delusional Hallucination Type: None Delusion Type: Other (grandiose) Suicidal Ideation: No Suicidal Plan: No Suicidal Intention: No Homicidal Ideation: No Homicidal Plan: No Homicidal Intention: No Insight: Fair Judgment: Impulsive Results Vitals/IOs Vital Signs Date Time Temp Pulse Resp B/P (MAP) Pulse Ox O2 Delivery O2 Flow Rate FiO2 06/18/17 06:12 97.6 73 16 126/70 (88) 96 Intake and Output 06/18/17 06/18/17 06/19/17 08:00 16:00 00:00 Intake Total 0 ml Balance 0 ml Assessment & Plan Problem List: (1) Bipolar disorder, current episode mixed, severe, with psychotic features ICD Codes: F31.64 - Bipolar disorder, current episode mixed, severe, with psychotic features Assessment & Plan Continue current treatment plan Justification for Cont. Inpt. Patient will decompensate in a less restrictive setting Request HC Surrog/Guard Advoc?: No Ke Coello DO Jun 18, 2017 16:44
[2017-06-18 18:15] VITALS: BP 138/63; PULSE 88; RESP 18; TEMP 97.8; O2SAT 99
[2017-06-18] MEDS: QUEtiapine FUMARATE 100 MG TAB PO SCH (20:09)
[2017-06-18] MEDS: diphenhydrAMINE HCL 50 MG CAP PO PRN (20:10)
[2017-06-18] MEDS: hydrOXYzine HCL 50 MG TAB PO PRN (20:10)
[2017-06-19] MEDS: LORazepam 1 MG TAB PO PRN ×2 (02:40→20:01)
[2017-06-19] MEDS: LEVOTHYROXINE SODIUM 75 MCG TAB PO SCH (05:50)
[2017-06-19] MEDS: hydrOXYzine HCL 50 MG TAB PO PRN (05:50)
[2017-06-19 06:23] VITALS: BP 107/64; PULSE 69; RESP 16; TEMP 97.5; O2SAT 98
[2017-06-19] MEDS: risperiDONE 1 MG TAB PO SCH ×2 (08:00→16:46)
[2017-06-19] MEDS ORDERED: diphenhydrAMINE HCL 50 MG/ML VIAL ONE (08:16)
[2017-06-19] MEDS ORDERED: HALOPERIDOL LACTATE 5 MG/ML AMP ONE (08:16)
[2017-06-19] MEDS ORDERED: diphenhydrAMINE HCL 50 MG/ML VIAL IM ONE (08:30)
[2017-06-19] MEDS ORDERED: HALOPERIDOL LACTATE 5 MG/ML AMP IM ONE (08:30)
[2017-06-19] MEDS: TAMSULOSIN HCL 0.4 MG CAP PO SCH (09:00)
[2017-06-19] MEDS: TERBINAFINE 250 MG TAB PO SCH (14:00)
--- NOTE | 2017-06-19 15:39 | HHI.PYPN ---
Subjective Remarks Patient was seen and case discussed with nursing. Patient was agitated today and received an ETO in the early afternoon. Per nursing, he believed that he was the president and expected others too old for him. He is sedated during the interview. Postinjection Mental Status Examination Appearance: Disheveled Consciousness: Alert Orientation: Person, Place, Date/Time Motor Activity: Normal gait, Other (no motor abnormalities noted) Speech: Other (rambling) Language: Adequate Fund of Knowledge: Adequate Attention and Concentration: Easily Distracted Memory: Unremarkable Mood: Angry, Other (presently calm) Affect: Labile Thought Process & Associations: Tangential Thought Content: Preoccupations, Delusional Hallucination Type: None Delusion Type: Bizarre, Other (grandiose) Suicidal Ideation: No Suicidal Plan: No Suicidal Intention: No Homicidal Ideation: No Homicidal Plan: No Homicidal Intention: No Insight: Fair Judgment: Impulsive Results Vitals/IOs Vital Signs Date Time Temp Pulse Resp B/P (MAP) Pulse Ox O2 Delivery O2 Flow Rate FiO2 06/19/17 06:23 97.5 69 16 107/64 (78) 98 Intake and Output 06/19/17 06/19/17 06/20/17 08:00 16:00 00:00 Intake Total 480 ml Balance 480 ml Assessment & Plan Problem List: (1) Bipolar disorder, current episode mixed, severe, with psychotic features ICD Codes: F31.64 - Bipolar disorder, current episode mixed, severe, with psychotic features Assessment & Plan Continue current treatment plan Justification for Cont. Inpt. Patient will decompensate in a less restrictive setting Request HC Surrog/Guard Advoc?: No Ke Coello DO Jun 19, 2017 15:39
[2017-06-19 18:09] VITALS: BP 121/74; PULSE 88; RESP 18; O2SAT 99
[2017-06-19] MEDS: QUEtiapine FUMARATE 100 MG TAB PO SCH (20:01)
[2017-06-20] MEDS: LEVOTHYROXINE SODIUM 75 MCG TAB PO SCH (05:05)
[2017-06-20 06:50] VITALS: BP 113/77; PULSE 83; RESP 16; TEMP 98; O2SAT 97
[2017-06-20] MEDS: TAMSULOSIN HCL 0.4 MG CAP PO SCH (08:03)
[2017-06-20] MEDS: risperiDONE 1 MG TAB PO SCH ×2 (08:03→15:32)
[2017-06-20] MEDS: TERBINAFINE 250 MG TAB PO SCH (12:28)
--- NOTE | 2017-06-20 12:37 | HHI.PYPN ---
Subjective Remarks Patient seen in [address] with nurse chelsie. Chart reviewed. Patient compliant medications. Patient continues intrusive loud labile just hated me a handwritten closely spaced to page letter describing his motivations for wanting to pursue a hospital. It is quite rambling and paranoid. Patient continues with rapid pressured speech she is intrusive loud intimidating at times threatening. Will add Tegretol 100 mg twice a day to regimen Review of Systems Except as stated in HPI: all other systems reviewed are Neg Mental Status Examination Appearance: Disheveled Consciousness: Alert Orientation: Person, Place, Date/Time Motor Activity: Normal gait, Other (no motor abnormalities noted) Speech: Other (rambling) Language: Adequate Fund of Knowledge: Adequate Attention and Concentration: Easily Distracted Memory: Unremarkable Mood: Angry, Other (presently calm) Affect: Labile Thought Process & Associations: Tangential Thought Content: Preoccupations, Delusional Hallucination Type: None Delusion Type: Bizarre, Other (grandiose) Suicidal Ideation: No Suicidal Plan: No Suicidal Intention: No Homicidal Ideation: No Homicidal Plan: No Homicidal Intention: No Insight: Fair Judgment: Impulsive Results Vitals/IOs Vital Signs Date Time Temp Pulse Resp B/P (MAP) Pulse Ox O2 Delivery O2 Flow Rate FiO2 06/20/17 06:50 98.0 83 16 113/77 (89) 97 Intake and Output 06/20/17 06/20/17 06/21/17 08:00 16:00 00:00 Intake Total 360 ml Balance 360 ml Assessment & Plan Problem List: (1) Bipolar disorder, current episode mixed, severe, with psychotic features ICD Codes: F31.64 - Bipolar disorder, current episode mixed, severe, with psychotic features Assessment & Plan Estimated LOS: days patient continues manic and psychotic intrusive belligerent intimidating with a Tegretol 100 mg twice a day to regimen check a blood level in 3 days Justification for Cont. Inpt. This time patient will decompensate if placed in a lower level of care Discharge Planning Placement is quite difficult due to patient's continued behaviors Request HC Surrog/Guard Advoc?: No Tyler Batista MD Jun 20, 2017 12:37
[2017-06-20] MEDS: LORazepam 1 MG TAB PO PRN (14:26)
--- NOTE | 2017-06-20 15:08 | PD.TTN ---
Patient Problems 1. Discharge planning 2. Medication compliance 3. Knowledge deficit 4. Lack of coping skills Progress Toward Goals Provider Present: Dr. Martha Batista Provider Input: Patient continues to present in a manic state. Patient is sexually preoccupied and is intrusive and loud. Patient is compliant with medications and does not have any major behavioral issues on the unit. Will continue to monitor. 06/20/17 Patient continues to be intrusive and loud. Patient does note to be more stable and has been medication compliant. Patient had an increase in medications due to level of intrusivness and lack of boundaries. patient continues to present in a hyperverbal and manic way. patient will continued to be monitored. 06/16/17 Patient is calmer today. Patient has little insight into his behaviors. Patient is compliant with medication. Nurse(s) Input: Patient is compliant with medications and presents with pressured speech and hyperverbal. Patient is sleeping well and is attending to ADLs. Patient is pleasant. Patient continues to be intrustive and loud on the unit. Becoming increasingly irritable. patient is observed to be attending to ADLs, and eatting. 06/16/17 Patient is angry, insulting. giving the finger. Medication not working. No better. Angry with wo en very sexually inappropriate Psychiatric Counselors Present: JERARDO Zepeda Psych Therapist Input: Counselor attempted to call patient's previous [facility] ([phone]) to see if patient is able to return back. Admission was not avaliable and counselor will attempt to call again. Counselor spoke with [facility] and noted that since patient did not recieve at 30 day eviction notice, patient will be returning back to faciltiy once stablized. Patient presents angry, intrusive, agitiated, discharge focus, has no insight into his behaviors. Patient's speech is clear, pressured, patient is medication compliant Group Spec/RT/OT/CARRASCO Present: Emile Up OT Group Spec/RT/OT/CARRASCO Input: Patient is selective in groups. 06/16/17 Patient attends groups regularly. Patient was agitated yesterday and verbally aggressive. Kesha WareLibertad Jun 20, 2017 15:08
[2017-06-20] MEDS: hydrOXYzine HCL 50 MG TAB PO PRN (15:37)
[2017-06-20 16:45] VITALS: BP 120/72; PULSE 90; RESP 16; TEMP 97.5; O2SAT 98
[2017-06-20] MEDS: LORazepam 2 MG/ML VIAL IM PRN (16:55)
[2017-06-20] MEDS: QUEtiapine FUMARATE 100 MG TAB PO SCH (20:07)
--- NOTE | 2017-06-21 05:32 | PD ---
Physical Exam Date Seen by Provider: Jun 02, 2017 Time Seen by Provider: 02:30 Data Data Orders Orders Complete Blood Count With Diff (06/02/17 00:46) Comprehensive Metabolic Panel (06/02/17 00:46) Psych Screen (06/02/17 00:46) Drug Screen, Random Urine (06/02/17 00:46) Alcohol (Ethanol) (06/02/17 00:46) Urinalysis - C+S If Indicated (06/02/17 00:51) Lorazepam (Ativan) (06/02/17 02:15) Diet Regular Basic (06/02/17 Breakfast) Diet Regular Basic (06/02/17 Lunch) Admit Order (Ed Use Only) (06/02/17 13:42) Labs Laboratory Tests Test 06/02/17 00:50 06/02/17 10:40 White Blood Count 6.3 TH/MM3 Red Blood Count 3.51 MIL/MM3 Hemoglobin 10.2 GM/DL Hematocrit 30.2 % Mean Corpuscular Volume 86.1 FL Mean Corpuscular Hemoglobin 29.1 PG Mean Corpuscular Hemoglobin Concent 33.8 % Red Cell Distribution Width 15.6 % Platelet Count 202 TH/MM3 Mean Platelet Volume 7.7 FL Neutrophils (%) (Auto) 74.4 % Lymphocytes (%) (Auto) 15.6 % Monocytes (%) (Auto) 9.3 % Eosinophils (%) (Auto) 0.3 % Basophils (%) (Auto) 0.4 % Neutrophils # (Auto) 4.7 TH/MM3 Lymphocytes # (Auto) 1.0 TH/MM3 Monocytes # (Auto) 0.6 TH/MM3 Eosinophils # (Auto) 0.0 TH/MM3 Basophils # (Auto) 0.0 TH/MM3 CBC Comment DIFF FINAL Differential Comment Blood Urea Nitrogen 17 MG/DL Creatinine 1.35 MG/DL Random Glucose 57 MG/DL Total Protein 7.0 GM/DL Albumin 4.1 GM/DL Calcium Level 9.3 MG/DL Alkaline Phosphatase 61 U/L Aspartate Amino Transf (AST/SGOT) 32 U/L Alanine Aminotransferase (ALT/SGPT) 41 U/L Total Bilirubin 0.9 MG/DL Sodium Level 132 MEQ/L Potassium Level 4.3 MEQ/L Chloride Level 100 MEQ/L Carbon Dioxide Level 24.3 MEQ/L Anion Gap 8 MEQ/L Estimat Glomerular Filtration Rate 52 ML/MIN Ethyl Alcohol Level 4 MG/DL Urine Color LIGHT-YELLOW Urine Turbidity CLEAR Urine pH 5.5 Urine Specific [place] 1.008 Urine Protein NEG mg/dL Urine Glucose (UA) NEG mg/dL Urine Ketones TRACE mg/dL Urine Occult Blood NEG Urine Nitrite NEG Urine Bilirubin NEG Urine Urobilinogen LESS THAN 2.0 MG/DL Urine Leukocyte Esterase NEG Urine RBC 1 /hpf Urine WBC 1 /hpf Microscopic Urinalysis Comment CULT NOT INDICATED Urine Opiates Screen NEG Urine Barbiturates Screen NEG Urine Amphetamines Screen NEG Urine Benzodiazepines Screen NEG Urine Cocaine Screen NEG Urine Cannabinoids Screen NEG [facility] Medical Record Reviewed: Yes Supervised Visit with AAYUSH: Yes Interpretation(s) Laboratory Tests Test 06/02/17 00:50 06/02/17 10:40 White Blood Count 6.3 TH/MM3 Red Blood Count 3.51 MIL/MM3 Hemoglobin 10.2 GM/DL Hematocrit 30.2 % Mean Corpuscular Volume 86.1 FL Mean Corpuscular Hemoglobin 29.1 PG Mean Corpuscular Hemoglobin Concent 33.8 % Red Cell Distribution Width 15.6 % Platelet Count 202 TH/MM3 Mean Platelet Volume 7.7 FL Neutrophils (%) (Auto) 74.4 % Lymphocytes (%) (Auto) 15.6 % Monocytes (%) (Auto) 9.3 % Eosinophils (%) (Auto) 0.3 % Basophils (%) (Auto) 0.4 % Neutrophils # (Auto) 4.7 TH/MM3 Lymphocytes # (Auto) 1.0 TH/MM3 Monocytes # (Auto) 0.6 TH/MM3 Eosinophils # (Auto) 0.0 TH/MM3 Basophils # (Auto) 0.0 TH/MM3 CBC Comment DIFF FINAL Differential Comment Blood Urea Nitrogen 17 MG/DL Creatinine 1.35 MG/DL Random Glucose 57 MG/DL Total Protein 7.0 GM/DL Albumin 4.1 GM/DL Calcium Level 9.3 MG/DL Alkaline Phosphatase 61 U/L Aspartate Amino Transf (AST/SGOT) 32 U/L Alanine Aminotransferase (ALT/SGPT) 41 U/L Total Bilirubin 0.9 MG/DL Sodium Level 132 MEQ/L Potassium Level 4.3 MEQ/L Chloride Level 100 MEQ/L Carbon Dioxide Level 24.3 MEQ/L Anion Gap 8 MEQ/L Estimat Glomerular Filtration Rate 52 ML/MIN Ethyl Alcohol Level 4 MG/DL Urine Color LIGHT-YELLOW Urine Turbidity CLEAR Urine pH 5.5 Urine Specific [place] 1.008 Urine Protein NEG mg/dL Urine Glucose (UA) NEG mg/dL Urine Ketones TRACE mg/dL Urine Occult Blood NEG Urine Nitrite NEG Urine Bilirubin NEG Urine Urobilinogen LESS THAN 2.0 MG/DL Urine Leukocyte Esterase NEG Urine RBC 1 /hpf Urine WBC 1 /hpf Microscopic Urinalysis Comment CULT NOT INDICATED Urine Opiates Screen NEG Urine Barbiturates Screen NEG Urine Amphetamines Screen NEG Urine Benzodiazepines Screen NEG Urine Cocaine Screen NEG Urine Cannabinoids Screen NEG Differential Diagnosis . Narrative Course The patient laboratory tests have been reviewed. The patient has been medically cleared. This is acute psychosis Diagnosis Primary Impression: Acute psychosis Scripts Quetiapine (Quetiapine) 100 Mg Tab 100 MG PO HS for health, #30 TAB 0 Refills Prov: Hussain Pompa MD 06/02/17 Dillon Rincon Jun 21, 2017 05:32
[2017-06-21 06:00] VITALS: BP 117/62; PULSE 83; RESP 17; TEMP 97.8; O2SAT 97
[2017-06-21] MEDS: LEVOTHYROXINE SODIUM 75 MCG TAB PO SCH (06:00)
[2017-06-21] MEDS: risperiDONE 1 MG TAB PO SCH ×2 (08:00→14:37)
[2017-06-21] MEDS: TAMSULOSIN HCL 0.4 MG CAP PO SCH (08:41)
--- NOTE | 2017-06-21 10:44 | HHI.PYPN ---
Subjective Remarks Patient seen in day room with nurse len, patient continues intense loud and labile and intrusive. Patient is so far tolerating the Tegretol without difficulty he continues to demand discharge everyday. For now continue treatment Review of Systems Except as stated in HPI: all other systems reviewed are Neg Mental Status Examination Appearance: Disheveled Consciousness: Alert Orientation: Person, Place, Date/Time Motor Activity: Normal gait, Other (no motor abnormalities noted) Speech: Other (rambling) Language: Adequate Fund of Knowledge: Adequate Attention and Concentration: Easily Distracted Memory: Unremarkable Mood: Angry, Other (presently calm) Affect: Labile Thought Process & Associations: Tangential Thought Content: Preoccupations, Delusional Hallucination Type: None Delusion Type: Bizarre, Other (grandiose) Suicidal Ideation: No Suicidal Plan: No Suicidal Intention: No Homicidal Ideation: No Homicidal Plan: No Homicidal Intention: No Insight: Fair Judgment: Impulsive Results Vitals/IOs Vital Signs Date Time Temp Pulse Resp B/P (MAP) Pulse Ox O2 Delivery O2 Flow Rate FiO2 06/21/17 06:00 97.8 83 17 117/62 (80) 97 Intake and Output 06/21/17 06/21/17 06/22/17 08:00 16:00 00:00 Intake Total 720 ml Balance 720 ml Assessment & Plan Problem List: (1) Bipolar disorder, current episode mixed, severe, with psychotic features ICD Codes: F31.64 - Bipolar disorder, current episode mixed, severe, with psychotic features Assessment & Plan Estimated LOS: days patient continues manic delusional intrusive and demanding , compliant with medications. Justification for Cont. Inpt. At this time patient will decompensate if placed in a lower level of care Discharge Planning Planning remains problematic due to patient's behavior Request HC Surrog/Guard Advoc?: No Tyler Batista MD Jun 21, 2017 10:44
[2017-06-21] MEDS: TERBINAFINE 250 MG TAB PO SCH (14:00)
[2017-06-21 17:19] VITALS: BP 126/56; PULSE 89; RESP 18; TEMP 97.4; O2SAT 97
[2017-06-21] MEDS: hydrOXYzine HCL 50 MG TAB PO PRN (18:08)
[2017-06-21] MEDS: LORazepam 1 MG TAB PO PRN (20:03)
[2017-06-21] MEDS: QUEtiapine FUMARATE 100 MG TAB PO SCH (20:03)
[2017-06-22 06:08] VITALS: BP 122/60; PULSE 77; RESP 16; TEMP 97.5; O2SAT 98
[2017-06-22] MEDS: LEVOTHYROXINE SODIUM 75 MCG TAB PO SCH (06:28)
[2017-06-22] MEDS: hydrOXYzine HCL 50 MG TAB PO PRN (08:58)
[2017-06-22] MEDS: TAMSULOSIN HCL 0.4 MG CAP PO SCH (08:58)
[2017-06-22] MEDS: risperiDONE 1 MG TAB PO SCH ×2 (09:02→16:00)
--- NOTE | 2017-06-22 10:12 | PD.TTN ---
Patient Problems 1. Discharge planning 2. Medication compliance 3. Knowledge deficit 4. Lack of coping skills Progress Toward Goals Provider Present: Dr. Martha Batista Provider Input: Patient continues to present in a manic state. Patient is sexually preoccupied and is intrusive and loud. Patient is compliant with medications and does not have any major behavioral issues on the unit. Will continue to monitor. 06/20/17 Patient continues to be intrusive and loud. Patient does note to be more stable and has been medication compliant. Patient had an increase in medications due to level of intrusivness and lack of boundaries. patient continues to present in a hyperverbal and manic way. patient will continued to be monitored. 06/16/17 Patient is calmer today. Patient has little insight into his behaviors. Patient is compliant with medication. Nurse(s) Input: Patient is compliant with medications and presents with pressured speech and hyperverbal. Patient is sleeping well and is attending to ADLs. Patient is pleasant. Patient continues to be intrustive and loud on the unit. Becoming increasingly irritable. patient is observed to be attending to ADLs, and eatting. 06/16/17 Patient is angry, insulting. giving the finger. Medication not working. No better. Angry with wo en very sexually inappropriate Psychiatric Counselors Present: JERARDO Zepeda Psych Therapist Input: Counselor attempted to call patient's previous [facility] ([phone]) to see if patient is able to return back. Admission was not avaliable and counselor will attempt to call again. Counselor spoke with [facility] and noted that since patient did not recieve at 30 day eviction notice, patient will be returning back to faciltiy once stablized. Patient presents angry, intrusive, agitiated, discharge focus, has no insight into his behaviors. Patient's speech is clear, pressured, patient is medication compliant Group Spec/RT/OT/CARRASCO Present: Emile Up OT Group Spec/RT/OT/CARRASCO Input: Patient is selective in groups. 06/16/17 Patient attends groups regularly. Patient was agitated yesterday and verbally aggressive. Kesha Ware Jun 22, 2017 10:12
--- NOTE | 2017-06-22 12:13 | HHI.PYPN ---
Subjective Remarks Patient seen in his room with nurse Villalobos, chart review, patient compliant medication. Patient's intensity of his affect appears somewhat softer. Continues to verify that he would be willing to [facility]. Staff continues to attempt to reach staff from that facility. Patient somewhat less intrusive or demanding. Review of Systems Except as stated in HPI: all other systems reviewed are Neg Mental Status Examination Appearance: Disheveled Consciousness: Alert Orientation: Person, Place, Date/Time Motor Activity: Normal gait, Other (no motor abnormalities noted) Speech: Other (rambling) Language: Adequate Fund of Knowledge: Adequate Attention and Concentration: Easily Distracted Memory: Unremarkable Mood: Angry, Other (presently calm) Affect: Labile Thought Process & Associations: Tangential Thought Content: Preoccupations, Delusional Hallucination Type: None Delusion Type: Bizarre, Other (grandiose) Suicidal Ideation: No Suicidal Plan: No Suicidal Intention: No Homicidal Ideation: No Homicidal Plan: No Homicidal Intention: No Insight: Fair Judgment: Impulsive Results Vitals/IOs Vital Signs Date Time Temp Pulse Resp B/P (MAP) Pulse Ox O2 Delivery O2 Flow Rate FiO2 06/22/17 06:08 97.5 77 16 122/60 (80) 98 Assessment & Plan Problem List: (1) Bipolar disorder, current episode mixed, severe, with psychotic features ICD Codes: F31.64 - Bipolar disorder, current episode mixed, severe, with psychotic features Assessment & Plan Estimated LOS: days patient somewhat less intrusive less demanding and appears his affect is softening somewhat of a decreased range and intensity of his affect. Compliant medications. We'll check a Tegretol blood level tomorrow Justification for Cont. Inpt. At this time patient will decompensate if placed in a lower level of care Discharge Planning Continue to work with placement issues especially related to his prior placement Request HC Surrog/Guard Advoc?: No Tyler Batista MD Jun 22, 2017 12:13
[2017-06-22] MEDS: TERBINAFINE 250 MG TAB PO SCH (14:00)
[2017-06-22 18:00] VITALS: BP 158/64; PULSE 87; RESP 18; TEMP 98.1; O2SAT 97
[2017-06-22] MEDS: diphenhydrAMINE HCL 50 MG CAP PO PRN (21:18)
[2017-06-22] MEDS: LORazepam 1 MG TAB PO PRN (21:19)
[2017-06-22] MEDS: QUEtiapine FUMARATE 100 MG TAB PO SCH (21:19)
[2017-06-23] MEDS: LORazepam 1 MG TAB PO PRN (00:02)
[2017-06-23] MEDS: hydrOXYzine HCL 50 MG TAB PO PRN ×4 (00:02→21:04)
[2017-06-23] MEDS: LEVOTHYROXINE SODIUM 75 MCG TAB PO SCH (05:06)
[2017-06-23 05:51] VITALS: BP 139/77; PULSE 95; RESP 18; TEMP 98.1; O2SAT 98
[2017-06-23] MEDS: risperiDONE 1 MG TAB PO SCH ×2 (08:12→16:00)
[2017-06-23] MEDS: TAMSULOSIN HCL 0.4 MG CAP PO SCH (08:12)
--- NOTE | 2017-06-23 11:54 | HHI.PYPN ---
Subjective Remarks Patient seen in day room with nurse Wilfredo, chart review, patient compliant medications. Patient have blood drawn this a.m. for Tegretol level still awaiting results. Patient continues intrusive demanding somewhat cynical and irritating. Though his voices no quite as loud as previous. For now continue treatment no change await word from Tegretol level before adjusting dose Review of Systems Except as stated in HPI: all other systems reviewed are Neg Mental Status Examination Appearance: Disheveled Consciousness: Alert Orientation: Person, Place, Date/Time Motor Activity: Normal gait, Other (no motor abnormalities noted) Speech: Other (rambling) Language: Adequate Fund of Knowledge: Adequate Attention and Concentration: Easily Distracted Memory: Unremarkable Mood: Angry, Other (presently calm) Affect: Labile Thought Process & Associations: Tangential Thought Content: Preoccupations, Delusional Hallucination Type: None Delusion Type: Bizarre, Other (grandiose) Suicidal Ideation: No Suicidal Plan: No Suicidal Intention: No Homicidal Ideation: No Homicidal Plan: No Homicidal Intention: No Insight: Fair Judgment: Impulsive Results Labs Test 06/23/17 09:50 Vitals/IOs Vital Signs Date Time Temp Pulse Resp B/P (MAP) Pulse Ox O2 Delivery O2 Flow Rate FiO2 06/23/17 05:51 98.1 95 18 139/77 (97) 98 Intake and Output 06/23/17 06/23/17 06/24/17 08:00 16:00 00:00 Intake Total 360 ml Balance 360 ml Assessment & Plan Problem List: (1) Bipolar disorder, current episode mixed, severe, with psychotic features ICD Codes: F31.64 - Bipolar disorder, current episode mixed, severe, with psychotic features Assessment & Plan Estimated LOS: days patient is somewhat manic intrusive intense and irritating , compliant medications. Awaiting Tegretol blood level from this a.m. Justification for Cont. Inpt. At this time patient will decompensate if placed on lower level of care Discharge Planning Placement continues to be problematic Request HC Surrog/Guard Advoc?: Tyler Singletary MD Jun 23, 2017 11:54
[2017-06-23] MEDS: TERBINAFINE 250 MG TAB PO SCH (14:00)
[2017-06-23 16:51] VITALS: BP 112/68; PULSE 72; RESP 17; TEMP 97.1; O2SAT 95
[2017-06-23] MEDS: diphenhydrAMINE HCL 50 MG CAP PO PRN (21:04)
[2017-06-23] MEDS: QUEtiapine FUMARATE 100 MG TAB PO SCH (21:05)
[2017-06-24 06:24] VITALS: BP 124/63; PULSE 78; RESP 18; TEMP 98; O2SAT 96
[2017-06-24] MEDS: LEVOTHYROXINE SODIUM 75 MCG TAB PO SCH (06:36)
[2017-06-24] MEDS: LORazepam 1 MG TAB PO PRN (08:30)
[2017-06-24] MEDS: TAMSULOSIN HCL 0.4 MG CAP PO SCH (08:30)
[2017-06-24] MEDS: risperiDONE 1 MG TAB PO SCH (08:33)
[2017-06-24] MEDS ORDERED: RISP1 PO (10:52)
[2017-06-24] MEDS ORDERED: CARB100C PO (10:52)
[2017-06-24] MEDS ORDERED: DIPH25CA PO (10:52)
[2017-06-24] MEDS ORDERED: LEVO75TA3 PO (10:52)
[2017-06-24] MEDS ORDERED: SERO400T PO (10:52)
[2017-06-24] MEDS ORDERED: LAMI250T PO (10:52)
[2017-06-24] MEDS ORDERED: TAMS5CAP PO (10:52)
--- NOTE | 2017-06-24 10:57 | HHI.DS ---
Psychiatry Discharge Summary Inpatient Psychiatric care?: Yes Advance Directive: No Reason Not Provided: Due to Patient Condition Mental Health AdvanceDirective: No Health Care Proxy: No Admission Admission Date Jun 02, 2017 at 13:44 Admission Diagnosis: (1) Bipolar disorder, current episode mixed, severe, with psychotic features ICD Code: F31.64 - Bipolar disorder, current episode mixed, severe, with psychotic features Brief History 72-year-old male with self-admitted history of bipolar disorder, presents under a [place] act for making threats to kill himself and to go somewhere in the car and kill other people. The patient is not a good historian and becomes easily agitated with this physician and the ED staff. He is irritable, demanding and unreasonable. However, he does state that he lives in [place], in an adult living facility with approximately 5 other adults. He reports that he is certain one of the adults "Kervin" is stealing from him and the patient made threats to attack him. Mr. Catherine becomes highly agitated when discussing this matter and is convinced this other resident is stealing from him. According to the [place] act, Mr. Catherine was going to get in a car and kill other people. However, Mr. Catherine tells this physician that he does not own a car and he would have to get one. Additionally, Mr. Catherine reportedly told the emergency room attending physician that he wanted to kill himself. Obviously, the patient is disorganized in his thoughts and inconsistent in his remarks, but remains paranoid and highly agitated. Finally, the patient feels that this other resident, "Kervin" is stealing from other residents but making the items disappear. Tobacco Use In Past 30 Days: No Tobacco Past 30 Days Alcohol Use: Never Hospital Course Patient's hospital course is somewhat tumultuous he showed manic behaviors was intrusive loud demanding and entitled intimidating. Even through periods of time when this became intense to the point where he needed ETO's. However we did adjust his medications with the addition of Tegretol. His mood is now calm the grandiosity intellectualization rationalizations continue with their softer he is more redirectable he is less intrusive less angry and less entitled. At this time I feel will admit maximum benefit of this hospitalization. Tegretol level drawn this morning came back and 0.7. Thus patient was discharged today to [facility] to follow-up through [facility] with Rx 1 month Results Blood Pressure 124 / 63 Vital Signs Date Time Temp Pulse Resp B/P (MAP) Pulse Ox O2 Delivery O2 Flow Rate FiO2 06/24/17 06:24 98.0 78 18 124/63 (83) 96 Laboratory Tests Test 06/23/17 09:50 Laboratory Results Test 06/03/17 08:27 Cholesterol Level 165 MG/DL (120-200) HDL Cholesterol 88.3 MG/DL (40.0-60.0) Hemoglobin A1c 5.7 % (4.3-6.0) LDL Cholesterol 65 MG/DL (0-99) Triglycerides Level 60 MG/DL (42-150) Summary of Procedures None done Pending results at discharge: No Medications # of Antipsychotic meds at D/C: 2 Appropriate >1 Antipsych meds?: 1 Approp Antipsych med options 1 - Minimum of three failed multiple trials of monotherapy. 2 - Documented plan to taper to monotherapy due to previous use of multiple meds OR cross-taper in progress at D/C. 3 - Documentation of augmentation of Clozapine. 4 - Justification other than those listed in allowable values 1-3, document here : Discharge Discharge Date: Jun 24, 2017 Discharge Diagnosis: (1) Bipolar disorder, current episode mixed, severe, with psychotic features Diagnosis: Principal ICD Code: F31.64 - Bipolar disorder, current episode mixed, severe, with psychotic features Pt Condition on Discharge: Stable Discharge Disposition: [facility] Discharge Instructions Diet Instructions: As Tolerated, No Restrictions Activities you can perform: Regular-No Restrictions Scheduled Appointment: [facility] Appointment Date: Jun 28, 2017 Appointment Time: 7:30am Discharge Time > 30 minutes Mental Status Examination Appearance: Disheveled Consciousness: Alert Orientation: Person, Place, Date/Time Motor Activity: Normal gait, Other (no motor abnormalities noted) Speech: Other (rambling) Language: Adequate Fund of Knowledge: Adequate Attention and Concentration: Easily Distracted Memory: Unremarkable Mood: Angry, Other (presently calm) Affect: Labile Thought Process & Associations: Tangential Thought Content: Preoccupations, Delusional Hallucination Type: None Delusion Type: Bizarre, Other (grandiose) Suicidal Ideation: No Suicidal Plan: No Suicidal Intention: No Homicidal Ideation: No Homicidal Plan: No Homicidal Intention: No Insight: Fair Judgment: Impulsive Discharge/Advance Care Plan Health Problems: (1) Bipolar disorder, current episode mixed, severe, with psychotic features Goals to promote your health * To prevent worsening of your condition and complications * To maintain your health at the optimal level Directions to meet your goals Take your medications as prescribed Follow your dietary instruction Follow activity as directed Keep your appointments as scheduled Take your immunizations and boosters as scheduled If your symptoms worsen call your PCP, if no PCP go to Urgent Care Center or Emergency Room For 03/01 questions related to your inpatient stay or results of tests pending at discharge, please contact Dr. Tyler Batista at Smoking is Dangerous to Your Health. Avoid second hand smoking Tyler Batista MD Jun 24, 2017 10:57
== END 2017-06-24 11:55 | DRG 885 ==
LOC: NEPD 00:13 → NEDA 13:44 → H250 14:20 → H260 06-07 16:32 → H250 06-15 10:20
PROVIDERS: ADMIT Psychiatry & Neurology Psychiatry; ATTEND Psychiatry & Neurology Psychiatry
DX: F31.64 Bipolar disorder, current episode mixed, severe, with psychotic features (principal); R45.851 Suicidal ideations; R45.850 Homicidal ideations; N40.0 Benign prostatic hyperplasia without lower urinary tract symptoms; E78.5 Hyperlipidemia, unspecified; E03.9 Hypothyroidism, unspecified; K58.9 Irritable bowel syndrome, unspecified; N18.9 Chronic kidney disease, unspecified
CPT/HCPCS: 80053; 80061; 80156; 80307; 81001; 82306; 82607; 83036; 84443; 85025; 93005; 99285; J1200; J1630; J2060; Q0163

== ENCOUNTER 2017-07-08 19:04 | Inpatient (IN) | payer OTHER, MEDICAID, MEDICARE ==
[~2017-07-08] VITALS: Ht 177.8 cm; Wt 55.0 kg
[~2017-07-08 19:04] MED LIST changes: +CARB100C PO; -CHOL5000 PO; +DIPH25CA PO; +DOCU100C15 PO; +LAMI250T PO; +LEVO75TA3 PO; -QUET1TAB8 PO; -QUET1TAB9 PO; +RISP1 PO; -SENN1TAB PO; +SERO400T PO; -TRAZ50TA12 PO
[2017-07-08 19:05] VITALS: BP 141/63; PULSE 87; RESP 16; TEMP 98.5; O2SAT 98
--- NOTE | 2017-07-08 19:38 | PD ---
HPI Chief Complaint: Psychiatric Symptoms Time Seen by Provider: 19:30 Travel History International Travel<30 days: No Contact w/Intl Traveler<30days: No Traveled to known affect area: No History of Present Illness HPI 72-year-old male with history of bipolar disorder, dementia, admitted to inpatient psych here in May 2017 and discharged on 06/24/17, here from his living facility complaining of having a nervous breakdown. He is here with one of the caregivers at the facility who tells me that the patient has been restless for the last 2 days and pacing around the [facility]. He has had decreased appetite and little to eat or drink. The patient denies fevers, cough , chills, or recent illness. No chest pain or dyspnea. No abdominal pain. He has been taking his medications as prescribed. PFSH Past Medical History Arthritis: No Asthma: No Autoimmune Disease: No Bipolar Disorder: Yes Anxiety: Yes Depression: Yes Heart Rhythm Problems: No Cancer: No Cardiovascular Problems: No High Cholesterol: No Chemotherapy: No Chest Pain: No Congestive Heart Failure: No COPD: No Cerebrovascular Accident: No Diabetes: No Diminished Hearing: No Endocrine: No Gastrointestinal Disorders: Yes GERD: No Genitourinary: No Headaches: No Hiatal Hernia: No Hypertension: No Immune Disorder: No Kidney Stones: No Musculoskeletal: No Neurologic: Yes Psychiatric: Yes Reproductive: No Respiratory: No Immunizations Current: No (UNKNOWN) Migraines: No Radiation Therapy: No Renal Failure: No Seizures: No Sickle Cell Disease: No Sleep Apnea: No Thyroid Disease: No Ulcer: No Past Surgical History Abdominal Surgery: Yes (APPENDECTOMY AND STOMACH SURGERY) AICD: No Appendectomy: Yes Arteriovenous Shunt: No Cardiac Surgery: No Ear Surgery: No Endocrine Surgery: No Eye Surgery: No Genitourinary Surgery: No Gynecologic Surgery: No Insulin Pump: No Joint Replacement: No Oral Surgery: No Pacemaker: No Thoracic Surgery: No Other Surgery: Yes Social History Alcohol Use: No Tobacco Use: No Substance Use: No Allergies-Medications (Allergen,Severity, Reaction): Coded Allergies: divalproex sodium (Unverified Allergy, Severe, 06/02/17) olanzapine (Unverified Allergy, Severe, 06/02/17) methylphenidate (Unverified Allergy, Unknown, 06/02/17) Reported Meds & Prescriptions Reported Meds & Active Scripts Active Risperdal (Risperidone) 1 Mg Tab 2 Mg PO BID@0800,1600 Seroquel (Quetiapine Fumarate) 400 Mg Tab 400 Mg PO HS Carbamazepine 100 Mg Chew 100 Mg PO BID Diphenhydramine (Diphenhydramine HCl) 25 Mg Cap 25 Mg PO HS PRN Levothyroxine (Levothyroxine Sodium) 75 Mcg Tab 75 Mcg PO DAILY Flomax (Tamsulosin HCl) 0.4 Mg Cap 0.4 Mg PO DAILY [Lactulose Liq] 30 ML Syrp 30 Ml PO DAILY PRN 30 Days Reported Trazodone (Trazodone HCl) 50 Mg Tab 50 Mg PO HS Docusate Sodium 100 Mg Cap 100 Mg PO BID PRN Review of Systems Except as stated in HPI: all other systems reviewed are Neg Physical Exam Narrative GENERAL: Well-developed, well-nourished, comfortable, no apparent distress, awake, calm SKIN: Focused skin assessment warm/dry. HEAD: Atraumatic. Normocephalic. EYES: Pupils equal and round. No scleral icterus. No injection or drainage. ENT: Mucous membranes pink and moist. NECK: Trachea midline. No JVD. CARDIOVASCULAR: Regular rate and rhythm. No murmur appreciated. RESPIRATORY: No accessory muscle use. Clear to auscultation. Breath sounds equal bilaterally. GASTROINTESTINAL: Abdomen soft, non-tender, nondistended. MUSCULOSKELETAL: No obvious deformities. No clubbing. No cyanosis. No edema. NEUROLOGICAL: Awake and alert. No obvious cranial nerve deficits. Motor grossly within normal limits. Normal speech. PSYCHIATRIC: Appropriate mood and affect; insight and judgment normal. Data Data Last Documented VS Vital Signs Date Time Temp Pulse Resp B/P (MAP) Pulse Ox O2 Delivery O2 Flow Rate FiO2 07/08/17 19:05 98.5 87 16 141/63 (89) 98 Room Air Orders Orders Complete Blood Count With Diff (07/08/17 19:35) Comprehensive Metabolic Panel (07/08/17 19:35) Thyroid Stimulating Hormone (07/08/17 19:35) Psych Screen (07/08/17 19:35) Hydroxyzine Pamoate (Vistaril) (07/08/17 21:00) Labs Laboratory Tests Test 07/08/17 19:45 White Blood Count 9.0 TH/MM3 Red Blood Count 3.60 MIL/MM3 Hemoglobin 10.7 GM/DL Hematocrit 31.1 % Mean Corpuscular Volume 86.4 FL Mean Corpuscular Hemoglobin 29.7 PG Mean Corpuscular Hemoglobin Concent 34.3 % Red Cell Distribution Width 13.3 % Platelet Count 281 TH/MM3 Mean Platelet Volume 6.8 FL Neutrophils (%) (Auto) 86.6 % Lymphocytes (%) (Auto) 7.2 % Monocytes (%) (Auto) 5.8 % Eosinophils (%) (Auto) 0.2 % Basophils (%) (Auto) 0.2 % Neutrophils # (Auto) 7.8 TH/MM3 Lymphocytes # (Auto) 0.6 TH/MM3 Monocytes # (Auto) 0.5 TH/MM3 Eosinophils # (Auto) 0.0 TH/MM3 Basophils # (Auto) 0.0 TH/MM3 CBC Comment DIFF FINAL Differential Comment Blood Urea Nitrogen 13 MG/DL Creatinine 1.19 MG/DL Random Glucose 95 MG/DL Total Protein 7.3 GM/DL Albumin 4.2 GM/DL Calcium Level 9.4 MG/DL Alkaline Phosphatase 84 U/L Aspartate Amino Transf (AST/SGOT) 44 U/L Alanine Aminotransferase (ALT/SGPT) 47 U/L Total Bilirubin 0.4 MG/DL Sodium Level 125 MEQ/L Potassium Level 4.3 MEQ/L Chloride Level 92 MEQ/L Carbon Dioxide Level 25.8 MEQ/L Anion Gap 7 MEQ/L Estimat Glomerular Filtration Rate 60 ML/MIN Thyroid Stimulating Hormone 3rd Gen 2.560 uIU/ML MDM Medical Decision Making Medical Screen Exam Complete: Yes Emergency Medical Condition: Yes Differential Diagnosis Bipolar disorder, brittany, acute psychosis, metabolic abnormality Narrative Course Vital signs reviewed. Labs reviewed and all values are around the patient's baseline. He has slight hyponatremia at 125. He will be given a liter of normal saline IV. He is not altered. He is medically cleared for psychiatric evaluation and disposition by them. Diagnosis Primary Impression: Medical clearance for psychiatric admission Mookie Carlos MD Jul 08, 2017 19:38
[2017-07-08] MEDS ORDERED: TRAZ50TA12 PO (19:58)
[2017-07-08 20:16] LABS: AUTOMATED NEUTROPHIL # 7.8 TH/MM3 (1.8-7.7); BASOPHIL % 0.2 % (0.0-2.0); EOSINOPHIL % 0.2 % (0.0-4.0); HEMATOCRIT 31.1 % (39.0-51.0); HEMOGLOBIN 10.7 GM/DL (13.0-17.0); LYMPH % 7.2 % (9.0-44.0); LYMPHOCYTE # 0.6 TH/MM3 (1.0-4.8); MEAN CELL VOLUME 86.4 FL (80.0-100.0); MEAN CORPUSCULAR HEMOGLOBIN 29.7 PG (27.0-34.0); MEAN CORPUSCULAR HGB CONC 34.3 % (32.0-36.0); MEAN PLATELET VOLUME 6.8 FL (7.0-11.0); MONO % 5.8 % (0.0-8.0); MONOCYTE # 0.5 TH/MM3 (0-0.9); NEUT % 86.6 % (16.0-70.0); PLATELET COUNT 281 TH/MM3 (150-450); RED CELL DISTRIBUTION WIDTH 13.3 % (11.6-17.2)
[2017-07-08 20:41] LABS: ALBUMIN 4.2 GM/DL (3.4-5.0); AST (GOT) 44 U/L (15-37); BICARBONATE 25.8 MEQ/L (21.0-32.0); BLOOD UREA NITROGEN 13 MG/DL (7-18); CALCIUM 9.4 MG/DL (8.5-10.1); CHLORIDE 92 MEQ/L (98-107); CREATININE 1.19 MG/DL (0.60-1.30); GLOMERULAR FILTRATION RATE 60 ML/MIN (>89); GLUCOSE,RANDOM 95 MG/DL (74-106); SODIUM (NA) 125 MEQ/L (136-145)
[2017-07-08 20:53] LABS: ALKALINE PHOSPHATASE 84 U/L (45-117); ALT (GPT) 47 U/L (12-78); TOTAL BILIRUBIN ADULT 0.4 MG/DL (0.2-1.0); TOTAL PROTEIN 7.3 GM/DL (6.4-8.2)
[2017-07-08] MEDS ORDERED: hydrOXYzine PAMOATE 25 MG CAP PO ONE (21:00)
[2017-07-08] MEDS ORDERED: SODIUM CHLOR 0.9% 1000 ML INJ 1,000 ML IV ONE (21:00)
[2017-07-08] MEDS ORDERED: LORazepam 2 MG/ML VIAL IV PUSH ONE (22:45)
[2017-07-09 03:14] VITALS: BP 121/69; PULSE 75; RESP 16; O2SAT 97
[2017-07-09] MEDS ORDERED: LORazepam 1 MG TAB PO ONE (09:15)
[2017-07-09 12:00] VITALS: BP 126/64; PULSE 74; RESP 18; TEMP 97.9; O2SAT 97
[2017-07-09 14:26] VITALS: BP 144/68; PULSE 71; RESP 16; O2SAT 99
[2017-07-09 15:50] VITALS: BP 113/67; PULSE 77; RESP 17; TEMP 97.1; O2SAT 100
[2017-07-09] MEDS ORDERED: LACTULOSE SYRUP 20 GM/30 ML CUP PO PRN (16:00)
[2017-07-09] MEDS ORDERED: risperiDONE 1 MG TAB PO SCH (16:00)
[2017-07-09] MEDS ORDERED: hydrOXYzine HCL 50 MG TAB PO PRN (16:00)
[2017-07-09] MEDS ORDERED: MAGNESIUM HYDROXIDE SUSP 30 ML CUP PO PRN (16:00)
[2017-07-09] MEDS ORDERED: DOCUSATE SODIUM 100 MG CAP PO PRN (16:00)
[2017-07-09] MEDS: ACETAMINOPHEN 325 MG TAB PO PRN ×2 (16:45→22:02)
[2017-07-09] MEDS ORDERED: traZODone HCL 50 MG TAB PO SCH (21:00)
[2017-07-09] MEDS: QUEtiapine FUMARATE 200 MG TAB PO SCH (21:00)
[2017-07-10] MEDS: LEVOTHYROXINE SODIUM 75 MCG TAB PO SCH (04:12)
[2017-07-10] MEDS: ACETAMINOPHEN 325 MG TAB PO PRN (04:12)
[2017-07-10 06:16] VITALS: BP 118/67; PULSE 99; RESP 18; TEMP 97.5; O2SAT 98
[2017-07-10] MEDS ORDERED: DOCUSATE SODIUM 100 MG CAP PO PRN (09:30)
[2017-07-10] MEDS ORDERED: TAMSULOSIN HCL 0.4 MG CAP PO SCH (09:30)
--- NOTE | 2017-07-10 09:47 | HHI.HP ---
Provisional Diagnosis Admission Date Jul 09, 2017 at 14:38 [place] I. Bipolar disorder mixed severe with psychotic features f 31.64 Certification of Person's Competence To Provide Express and Informed Consent I have personally examined Tyler Catherine , a person being served at [facility] on, Jul 10, 2017 09:29. Express and informed consent means consent voluntarily given in writing, by a competent person, after sufficient explanation and disclosure of the subject matter involved to enable the person to make a knowing and willful decision without any element of force, fraud, deceit, duress, or other form of constraint or coercion. This person is 18 years of age or older, is not now known to be incompetent to consent to treatment with a guardian advocate, and does not have a health care surrogate or proxy currently making medical treatment decisions. I have found this person to be one of the following: []xxx Competent to provide express and informed consent, as defined above, for voluntary admission to this facility and is competent to provide express and informed consent for treatment. He/she has the consistent capacity to make well reasoned, willful, and knowing decisions concerning his or her medical or mental health treatment. The person fully and consistently understands the purpose of the admission for examination/placement and is fully capable of personally exercising all rights [place] Incompetent to provide express and informed consent to voluntary admission, and this is incompetent to provide express and informed consent to treatment. The person must be transferred to involuntary status and a petition for a guardian advocate filed with the Circuit Court. [] Refusing to provide express and informed consent to voluntary admission but is competent to provide express and informed consent for treatment. The person must be discharged or transferred to involuntary status. Form shall be completed within 24 hours of a person's arrival at the receiving facility and filed in the clinical record of each person: 1. Admitted on a voluntary basis 2. Permitted to provide express and informed consent to his/her own treatment 3. Allowed to transfer from involuntary to voluntary status 4. Prior to permitting a person to consent to his or her own treatment after having been previously found incompetent to consent to treatment. History of Present Illness Capacity: Has Capacity Psych Chief Complaint: are not eating noncompliant medications increased irritability wandering ps HPI Patient is a 72-year-old white male well-known post multiple prior contacts most initially be hospitalized here 06/02/17 through 06/24/17 under visit [id number] patient is [facility]. It appears the patient rapidly decompensated there stopping eating becoming questionably compliant with medication pacing wandering becoming more irritable and labile.. Patient seen screened in the ED urine toxicology negative bladder: Negative. At the present time patient seen pacing the cullen on 2500. Appears quite emaciated appear she has lost significant weight since his discharge. He is quite tremulous Wiard akathisia type appearance. Patient denies voices though he acknowledges racing thoughts. He feels the people in his prison did not give him the proper respect and cooperation. He states she's been compliant with his medication. He does denies suicidality at the present time. He did recognize me she still remains fairly well oriented. Though he is also somewhat loud intrusive and at times ingratiating. At this time patient does meet criteria for inpatient psychiatric treatment assessment stabilization. We' ll continue his medications per the med reconciliation except will place the Respinol an old. We'll get a Tegretol blood level tomorrow morning. We will have the hospitalist consult will is, will have a swallow study done, and a PTE who. Along with a dietary consult. Hopefully spare fairly short stay placement may become quite problematic Review of Systems Constitutional: COMPLAINS OF: Weight loss, DENIES: Diaphoretic episodes, Fatigue, Fever, Weight gain, Chills, Dizziness, Change in appetite, Night Sweats Endocrine: DENIES: Heat/cold intolerance, Polydipsia, Polyuria, Polyphagia Eyes: DENIES: Blurred vision, Diplopia, Eye inflammation, Eye pain, Vision loss , Photosensitivity, Double Vision Ears, nose, mouth, throat: DENIES: Tinnitus, Hearing loss, Vertigo, Nasal discharge, Oral lesions, Throat pain, Hoarseness, Ear Pain, Running Nose, Epistaxis, Sinus Pain, Toothache, Odynophagia Respiratory: DENIES: Apneas, Cough, Snoring, Wheezing, Hemoptysis, Sputum production, Shortness of breath Cardiovascular: DENIES: Chest pain, Palpitations, Syncope, Dyspnea on Exertion , PND, Lower Extremity Edema, Orthopnea, Claudication Gastrointestinal: DENIES: Abdominal pain, Black stools, Bloody stools, Constipation, Diarrhea, Nausea, Vomiting, Difficulty Swallowing, Anorexia Genitourinary: DENIES: Sexual dysfunction, Urinary frequency, Urinary incontinence, Urgency, Hematuria, Dysuria, Nocturia, Penile Discharge, Testicular Pain, Testicular Swelling Musculoskeletal: DENIES: Joint pain, Muscle aches, Stiffness, Joint Swelling, Back pain, Neck pain Integumentary: DENIES: Abnormal pigmentation, Nail changes, Pruritus, Rash Hematologic/lymphatic: DENIES: Bruising, Lymphadenopathy Immunologic/allergic: DENIES: Eczema, Urticaria Neurologic: COMPLAINS OF: Abnormal gait (more shuffling) Psychiatric: COMPLAINS OF: Anxiety, Agitation (mild intrusive) Past Psych History Psychological trauma history Patient denies Violence risk - others (6 mos) Low Violence risk - self (6 mos) Low to moderate Substance Abuse History Drugs/Alcohol past 12 months Denies Past Family Social History Coded Allergies: divalproex sodium (Unverified Allergy, Severe, 06/02/17) olanzapine (Unverified Allergy, Severe, 06/02/17) methylphenidate (Unverified Allergy, Unknown, 06/02/17) Active Scripts Risperidone (Risperdal) 1 Mg Tab, 2 MG PO BID@0800,1600 for health, #60 TAB 0 Refills Prov:Tyler Batista MD 06/24/17 Quetiapine (Seroquel) 400 Mg Tab, 400 MG PO HS for health, #30 TAB 0 Refills Prov:Tyler Batista MD 06/24/17 Carbamazepine (Carbamazepine) 100 Mg Chew, 100 MG PO BID for health, #60 EA 0 Refills Prov:Tyler Batista MD 06/24/17 Diphenhydramine (Diphenhydramine) 25 Mg Cap, 25 MG PO HS Y for INSOMNIA, #30 CAP 0 Refills Prov:Tyler Batista MD 06/24/17 Levothyroxine (Levothyroxine) 75 Mcg Tab, 75 MCG PO DAILY for Thyroid, #30 TAB 0 Refills Prov:Tyler Batista MD 06/24/17 Tamsulosin (Flomax) 0.4 Mg Cap, 0.4 MG PO DAILY for health, #30 CAP 0 Refills Prov:Tyler Batista MD 06/24/17 [Lactulose] 30 ML SYRP No Conflict Check, 30 ML PO DAILY Y for SEVERE CONSITIPATION for 30 Days, ML Prov:Karla Hernandez MD 12/19/16 Reported Medications Trazodone (Trazodone) 50 Mg Tab, 50 MG PO HS for Control Depression, #30 TAB 0 Refills 07/08/17 Docusate Sodium (Docusate Sodium) 100 Mg Cap, 100 MG PO BID Y for CONSTIPATION, #60 CAP 0 Refills 06/02/17 Discontinued Scripts Terbinafine (Lamisil) 250 Mg Tab, 250 MG PO DAILY for Manage Fungal Infection, # 30 TAB 0 Refills Prov:Tyler Batista MD 06/24/17 Current Medications Medications (Trade) Dose Ordered Sig/Kerry Route Start Time Stop Time Status Last Admin (Atarax) 50 mg Q6H PRN PO 07/09/17 16:00 (Tylenol) 650 mg Q4H PRN PO 07/09/17 16:00 07/10/17 04:12 (Milk Of Magnesia Liq) 30 ml DAILY PRN PO 07/09/17 16:00 (Mag-Al Plus Susp Liq) 30 ml Q6H PRN PO 07/09/17 16:00 (Lactulose Liq) 30 ml DAILY PRN PO 07/09/17 16:00 (Colace) 100 mg BID PRN PO 07/09/17 16:00 (Flomax) 0.4 mg DAILY PO 07/10/17 09:00 (Synthroid) 75 mcg DAILY@0600 PO 07/10/17 06:00 07/10/17 04:12 (TEGretol CHEW) 100 mg BID PO 07/09/17 21:00 07/09/17 22:02 (SEROquel) 400 mg HS PO 07/09/17 21:00 (risperDAL) 2 mg BID@0800,1600 PO 07/09/17 16:00 07/09/17 16:45 (Desyrel) 50 mg HS PO 07/09/17 21:00 Family Psych History Unknown at this time Social History Patient lives in prison has minimal support group Patient's Strengths (min. 2) Patient verbal labile access healthcare Physical Exam Patient cleared in ED at the present time the patient pacing Cullen he has a diffuse fine tremulous to him as if he is shivering. That appears may be somewhat aphasic in nature. Will discontinue the Respinol. He is otherwise in no acute distress see is in no respiratory distress patient moving all 4 extremities without difficulty Vital Signs Vital Signs Date Time Temp Pulse Resp B/P (MAP) Pulse Ox O2 Delivery O2 Flow Rate FiO2 07/10/17 06:16 97.5 99 18 118/67 (84) 98 07/09/17 14:26 Room Air I/O 07/10/17 07/10/17 07/11/17 08:00 16:00 00:00 Intake Total 720 ml Balance 720 ml Mental Status Examination Appearance: Appropriate Consciousness: Alert Orientation: x4 Motor Activity: Other (somewhat shuffling gait) Speech: Pressured, Rapid Language: Perseveration (mild) Fund of Knowledge: Adequate Attention and Concentration: Other (fair) Memory: Unremarkable Mood: Anxious, Irritable Affect: Other (increased range and intensity) Thought Process & Associations: Logical, Disorganized Thought Content: Ideas of reference Hallucination Type: None Delusion Type: Paranoid Suicidal Ideation: No Suicidal Plan: No Suicidal Intention: No Homicidal Ideation: No Homicidal Plan: No Homicidal Intention: No Insight: Poor Judgment: Poor Assessment & Plan Problem List: (1) Bipolar disorder, current episode mixed, severe, with psychotic features ICD Codes: F31.64 - Bipolar disorder, current episode mixed, severe, with psychotic features Assessment & Plan Estimated LOS: 5-7 days at this time patient doesn't meet criteria for inpatient psychiatric care observation assessment medication adjustments. I feel this of capacity thus we will allow him to remain on a voluntary basis. We 'll discontinue the Respinol. Continues other medications check a Tegretol blood level over in a.m. we'll Alexandro consultations including hospitalist speech swallow study PT and dietary Discharge Planning To be determined Request HC Surrog/Guard Advoc?: No Tyler Batista MD Jul 10, 2017 09:47
[2017-07-10] MEDS: TAMSULOSIN HCL 0.4 MG CAP PO SCH (10:08)
[2017-07-10 11:12] LABS: BICARBONATE 23.2 MEQ/L (21.0-32.0); BLOOD UREA NITROGEN 13 MG/DL (7-18); CALCIUM 9.6 MG/DL (8.5-10.1); CHLORIDE 93 MEQ/L (98-107); CHOLESTEROL 151 MG/DL (120-200); CREATININE 1.23 MG/DL (0.60-1.30); GLOMERULAR FILTRATION RATE 58 ML/MIN (>89); GLUCOSE,RANDOM 108 MG/DL (74-106); SODIUM (NA) 126 MEQ/L (136-145); TRIGLYCERIDES 47 MG/DL (42-150)
[2017-07-10 11:15] LABS: CHOLESTEROL/ HDL RATIO 1.88 RATIO; LDL CHOLESTEROL 62 MG/DL (0-99)
--- NOTE | 2017-07-10 11:41 | PD.CONS ---
HPI Service [facility] Hospitalists Consult Requested By Dr. Batista Reason for Consult Medical management Primary Care Physician Non-Staff Diagnoses: History of Present Illness 72-year-old male with history of bipolar disorder, dementia, admitted to inpatient psych here in May 2017 and discharged on 06/24/17, here from his living facility complaining of having a nervous breakdown. He is here with one of the caregivers at the facility who tells me that the patient has been restless for the last 2 days and pacing around the halfway. He has had decreased appetite and little to eat or drink. The patient denies fevers, cough , chills, or recent illness. No chest pain or dyspnea. No abdominal pain. He has been taking his medications as prescribed. Review of Systems ROS Limitations: Clinical Condition, Psychotic, Poor Historian Except as stated in HPI: all other systems reviewed are Neg Past Family Social History Allergies: Coded Allergies: divalproex sodium (Unverified Allergy, Severe, 06/02/17) olanzapine (Unverified Allergy, Severe, 06/02/17) methylphenidate (Unverified Allergy, Unknown, 06/02/17) Past Medical History Bipolar disorder, dementia Past Surgical History appendectomy Reported Medications Reported Meds & Active Scripts Active Risperdal (Risperidone) 1 Mg Tab 2 Mg PO BID@0800,1600 Seroquel (Quetiapine Fumarate) 400 Mg Tab 400 Mg PO HS Carbamazepine 100 Mg Chew 100 Mg PO BID Diphenhydramine (Diphenhydramine HCl) 25 Mg Cap 25 Mg PO HS PRN Levothyroxine (Levothyroxine Sodium) 75 Mcg Tab 75 Mcg PO DAILY Flomax (Tamsulosin HCl) 0.4 Mg Cap 0.4 Mg PO DAILY [Lactulose Liq] 30 ML Syrp 30 Ml PO DAILY PRN 30 Days Reported Trazodone (Trazodone HCl) 50 Mg Tab 50 Mg PO HS Docusate Sodium 100 Mg Cap 100 Mg PO BID PRN Family History Sister with liver cancer Social History Denies alcohol use illicit drug use or tobacco use. Physical Exam Vital Signs Vital Signs Date Time Temp Pulse Resp B/P (MAP) Pulse Ox O2 Delivery O2 Flow Rate FiO2 07/10/17 06:16 97.5 99 18 118/67 (84) 98 07/09/17 15:53 07/09/17 15:50 97.1 77 17 113/67 (82) 100 07/09/17 14:26 71 16 144/68 (93) 99 Room Air 07/09/17 12:00 97.9 74 18 126/64 (84) 97 Physical Exam GENERAL: This is a frail 72-year-old male, in no apparent distress. SKIN: No rashes, ecchymoses or lesions. Cool and dry. HEAD: Atraumatic. Normocephalic. No temporal or scalp tenderness. EYES: Pupils equal round and reactive. Extraocular motions intact. No scleral icterus. No injection or drainage. ENT: Nose without bleeding, purulent drainage or septal hematoma. Throat without erythema, tonsillar hypertrophy or exudate. Uvula midline. Airway patent. NECK: Trachea midline. No JVD or lymphadenopathy. Supple, nontender, no meningeal signs. CARDIOVASCULAR: Regular rate and rhythm without murmurs, gallops, or rubs. RESPIRATORY: Clear to auscultation. Breath sounds equal bilaterally. No wheezes , rales, or rhonchi. GASTROINTESTINAL: Abdomen soft, non-tender, nondistended. No hepato-splenomegaly , or palpable masses. No guarding. MUSCULOSKELETAL: Extremities without clubbing, cyanosis, or edema. No joint tenderness, effusion, or edema noted. No calf tenderness. Negative Homans sign bilaterally. NEUROLOGICAL: Awake and alert. Cranial nerves II through XII intact. Motor and sensory grossly within normal limits. Abnormal gait Normal speech. Laboratory Laboratory Tests Test 07/10/17 09:36 Blood Urea Nitrogen 13 Creatinine 1.23 Random Glucose 108 Calcium Level 9.6 Sodium Level 126 Potassium Level 4.3 Chloride Level 93 Carbon Dioxide Level 23.2 Anion Gap 10 Estimat Glomerular Filtration Rate 58 Triglycerides Level 47 Cholesterol Level 151 LDL Cholesterol 62 HDL Cholesterol 80.0 Cholesterol/HDL Ratio 1.88 Result Diagram: 07/08/17 1945 07/10/17 0936 Assessment and Plan Assessment and Plan Bipolar disorder management per psych Hyponatremia Na at 125 on admission. Received liter of normal saline IV. Monitor Na level water restriction BPH contnue flomax Hypothyroidism continue levothyroxine Parkinson continue home medications as appropriate. Resume home meds as ppropriate DVT prophylaxis - ambulation Discussed Condition With Patient, nurse Thelma Meyer MD Jul 10, 2017 11:41
[2017-07-10 18:00] VITALS: BP 107/69; PULSE 105; RESP 20; TEMP 97.5; O2SAT 96
[2017-07-10] MEDS: QUEtiapine FUMARATE 200 MG TAB PO SCH (20:37)
[2017-07-10] MEDS: traZODone HCL 50 MG TAB PO SCH (20:37)
[2017-07-10] MEDS ORDERED: NON-FORMULARY DRUG (Quetiapine (Seroquel) 400 MG) PO SCH (21:00)
[2017-07-11 05:43] VITALS: BP 144/69; PULSE 102; RESP 18; TEMP 98.6; O2SAT 95
[2017-07-11] MEDS ORDERED: LEVOTHYROXINE SODIUM 75 MCG TAB PO SCH (06:00)
[2017-07-11] MEDS: LEVOTHYROXINE SODIUM 75 MCG TAB PO SCH (06:33)
[2017-07-11] MEDS: TAMSULOSIN HCL 0.4 MG CAP PO SCH (09:16)
[2017-07-11] MEDS: ACETAMINOPHEN 325 MG TAB PO PRN ×2 (12:15→21:20)
--- NOTE | 2017-07-11 12:43 | HHI.PR ---
Subjective Remarks 72-year-old male with history of bipolar disorder, dementia, admitted to inpatient psych here in May 2017 and discharged on 06/24/17, here from his living facility complaining of having a nervous breakdown. He is here with one of the caregivers at the facility who tells me that the patient has been restless for the last 2 days and pacing around the skilled nursing. He has had decreased appetite and little to eat or drink. The patient denies fevers, cough , chills, or recent illness. No chest pain or dyspnea. No abdominal pain. He has been taking his medications as prescribed. 07-11 COMPLAINS OF PAIN IN LEGS WANTS SOME TYLENOL DW RN AND PATIENT NO OTHER COMPLAINTS Objective Vitals Vital Signs Date Time Temp Pulse Resp B/P (MAP) Pulse Ox O2 Delivery O2 Flow Rate FiO2 07/11/17 05:43 98.6 102 18 144/69 (94) 95 07/10/17 18:00 97.5 105 20 107/69 (82) 96 I/O 07/10/17 07/10/17 07/10/17 07/11/17 07/11/17 07/11/17 06:59 14:59 22:59 06:59 14:59 22:59 Intake Total 720 ml 500 ml Balance 720 ml 500 ml Intake Oral 720 ml 500 ml # Voids 1 4 # Bowel Movements 3 Result Diagram: 07/08/17194407/10/17 0936 Other Results Laboratory Tests Test 07/08/17 19:45 07/10/17 09:36 07/11/17 10:32 White Blood Count 9.0 TH/MM3 Red Blood Count 3.60 MIL/MM3 Hemoglobin 10.7 GM/DL Hematocrit 31.1 % Mean Corpuscular Volume 86.4 FL Mean Corpuscular Hemoglobin 29.7 PG Mean Corpuscular Hemoglobin Concent 34.3 % Red Cell Distribution Width 13.3 % Platelet Count 281 TH/MM3 Mean Platelet Volume 6.8 FL Neutrophils (%) (Auto) 86.6 % Lymphocytes (%) (Auto) 7.2 % Monocytes (%) (Auto) 5.8 % Eosinophils (%) (Auto) 0.2 % Basophils (%) (Auto) 0.2 % Neutrophils # (Auto) 7.8 TH/MM3 Lymphocytes # (Auto) 0.6 TH/MM3 Monocytes # (Auto) 0.5 TH/MM3 Eosinophils # (Auto) 0.0 TH/MM3 Basophils # (Auto) 0.0 TH/MM3 CBC Comment DIFF FINAL Differential Comment Blood Urea Nitrogen 13 MG/DL 13 MG/DL Creatinine 1.19 MG/DL 1.23 MG/DL Random Glucose 95 MG/DL 108 MG/DL Total Protein 7.3 GM/DL Albumin 4.2 GM/DL Calcium Level 9.4 MG/DL 9.6 MG/DL Alkaline Phosphatase 84 U/L Aspartate Amino Transf (AST/SGOT) 44 U/L Alanine Aminotransferase (ALT/SGPT) 47 U/L Total Bilirubin 0.4 MG/DL Sodium Level 125 MEQ/L 126 MEQ/L Potassium Level 4.3 MEQ/L 4.3 MEQ/L Chloride Level 92 MEQ/L 93 MEQ/L Carbon Dioxide Level 25.8 MEQ/L 23.2 MEQ/L Anion Gap 7 MEQ/L 10 MEQ/L Estimat Glomerular Filtration Rate 60 ML/MIN 58 ML/MIN Thyroid Stimulating Hormone 3rd Gen 2.560 uIU/ML Hemoglobin A1c 6.0 % Triglycerides Level 47 MG/DL Cholesterol Level 151 MG/DL LDL Cholesterol 62 MG/DL HDL Cholesterol 80.0 MG/DL Cholesterol/HDL Ratio 1.88 RATIO Carbamazepine (Tegretol) Level 4.3 MCG/ML Objective Remarks GENERAL: Awake alert talkative and cooperative appears stated age SKIN: Warm and dry. HEAD: Atraumatic. Normocephalic. EYES: Pupils equal and round. No scleral icterus. No injection or drainage. Extraocular muscles intact ENT: No nasal bleeding or discharge. Mucous membranes pink and moist. Tongue is midline NECK: Trachea midline. No JVD. Supple CARDIOVASCULAR: Regular rate and rhythm. S1 and S2 no S3 or S4 RESPIRATORY: No accessory muscle use. Clear to auscultation. Breath sounds equal bilaterally. GASTROINTESTINAL: Abdomen soft, non-tender, nondistended. Hepatic and splenic margins not palpable. MUSCULOSKELETAL: Extremities without clubbing, cyanosis, or edema. No obvious deformities. NEUROLOGICAL: Awake and alert. No obvious cranial nerve deficits. Motor grossly within normal limits. Five out of 5 muscle strength in the arms and legs. Normal speech. PSYCHIATRIC: INAppropriate mood and affect; insight and judgment ABnormal. Medications and IVs Current Medications Hydroxyzine Pamoate (Vistaril) 25 mg ONCE ONCE PO Last administered on at 21:12; Start 07/08/17 at 21:00; Stop 07/08/17 at 21:01; Status DC Sodium Chloride 1,000 ml @ 999 mls/hr BOLUS ONCE IV Last administered on 07/08at 21:12; Start 07/08/17 at 21:00; Stop 07/08/17 at 22:00; Status DC Lorazepam (Ativan Inj) 1 mg ONCE ONCE IV PUSH Last administered on 07/08/17at 22:49; Start 07/08/17 at 22:45; Stop 07/08/17 at 22:46; Status DC Lorazepam (Ativan) 1 mg ONCE ONCE PO Last administered on 07/09/17at 09:43; Start 07/09/17 at 09:15; Stop 07/09/17 at 09:16; Status DC Hydroxyzine HCl (Atarax) 50 mg Q6H PRN PO ANXIETY; Start 07/09/17 at 16:00; Status Cancel Acetaminophen (Tylenol) 650 mg Q4H PRN PO Pain 1-5 or Temp >101F Last administered on 07/10/17at 04:12; Start 07/09/17 at 16:00 Magnesium Hydroxide (Milk Of Magnesia Liq) 30 ml DAILY PRN PO CONSTIPATION; Start 07/09/17 at 16:00; Status Cancel Al Hydrox/Mg Hydrox/Simethicone (Mag-Al Plus Susp Liq) 30 ml Q6H PRN PO DYSPEPSIA; Start 07/09/17 at 16:00 Lactulose (Lactulose Liq) 30 ml DAILY PRN PO SEVERE CONSTIPATION; Start at 16:00 Docusate Sodium (Colace) 100 mg BID PRN PO CONSTIPATION; Start 07/09/17 at 16: 00 Tamsulosin HCl (Flomax) 0.4 mg DAILY PO Last administered on 07/11/17at 09:16; Start 07/10/17 at 09:00 Levothyroxine Sodium (Synthroid) 75 mcg DAILY@0600 PO Last administered on 07/11at 06:33; Start 07/10/17 at 06:00 Carbamazepine (TEGretol CHEW) 100 mg BID PO Last administered on 07/11/17at 09: 15; Start 07/09/17 at 21:00 Quetiapine Fumarate (SEROquel) 400 mg HS PO Last administered on 07/10/17at 20: 37; Start 07/09/17 at 21:00 Risperidone (risperDAL) 2 mg BID@0800,1600 PO Last administered on 07/09/17at 16 :45; Start 07/09/17 at 16:00; Status Future Hold Trazodone HCl (Desyrel) 50 mg HS PO ; Start 07/09/17 at 21:00; Stop 07/10/17 at 09:53; Status DC Lorazepam (Ativan) 0.5 mg Q12H PRN PO MODERATE TO SEVERE ANXIETY; Start at 09:30 Lorazepam (Ativan Inj) 0.5 mg Q12H PRN IM MODERATE TO SEVERE ANXIETY; Start at 09:30 Carbamazepine (TEGretol CHEW) 100 mg BID PO ; Start 07/10/17 at 09:30; Status UNV Diphenhydramine HCl (Benadryl) 25 mg HS PRN PO INSOMNIA; Start 07/10/17 at 09: 30 Docusate Sodium (Colace) 100 mg BID PRN PO CONSTIPATION; Start 07/10/17 at 09: 30; Status Cancel Levothyroxine Sodium (Synthroid) 75 mcg DAILY@0600 PO ; Start 07/11/17 at 06:00 ; Status Cancel Tamsulosin HCl (Flomax) 0.4 mg DAILY PO ; Start 07/10/17 at 09:30; Status UNV Trazodone HCl (Desyrel) 50 mg HS PO Last administered on 07/10/17at 20:37; Start 07/10/17 at 21:00 Non-Formulary Medication 400 mg HS PO ; Start 07/10/17 at 21:00; Status UNV A/P Assessment and Plan Assessment and Plan Bipolar disorder management per psych Hyponatremia Na at 125 on admission. Received liter of normal saline IV. Monitor Na level water restriction Slow improvement to 125 we will add sodium chloride tabs 1 tab by mouth twice a day BPH contnue flomax Hypothyroidism continue levothyroxine Parkinson continue home medications as appropriate. Resume home meds as Appropriate DVT prophylaxis - ambulation Discharge Planning Pending psychiatric clearance Pipo Boyce DO Jul 11, 2017 12:43
[2017-07-11] MEDS: SODIUM CHLORIDE 1 GRAM TAB PO SCH ×2 (12:50→21:15)
--- NOTE | 2017-07-11 16:41 | HHI.PYPN ---
Subjective Chief Complaint: are not eating noncompliant medications increased irritability wandering ps Remarks Patient seen in [facility] with nurse Wilfredo, chart review, patient compliant medication Depakote blood level drawn this morning is 4.3 on 100 mg twice a day. Will increase to 100 mg morning 20 mg at bedtime and recheck level in a few days. Patient continues somewhat irritable stating he will be willing to go back to his halfway for due to that he wants to get his own place. Perhaps moving away from here. Patient denies suicidality of voices at this time Review of Systems Except as stated in HPI: all other systems reviewed are Neg Mental Status Examination Appearance: Appropriate Consciousness: Alert Orientation: x4 Motor Activity: Other (somewhat shuffling gait) Speech: Pressured, Rapid Language: Perseveration (mild) Fund of Knowledge: Adequate Attention and Concentration: Other (fair) Memory: Unremarkable Mood: Anxious, Irritable Affect: Other (increased range and intensity) Thought Process & Associations: Logical, Disorganized Thought Content: Ideas of reference Hallucination Type: None Delusion Type: Paranoid Suicidal Ideation: No Suicidal Plan: No Suicidal Intention: No Homicidal Ideation: No Homicidal Plan: No Homicidal Intention: No Insight: Poor Judgment: Poor Results Labs Test 07/11/17 10:32 Carbamazepine (Tegretol) Level 4.3 MCG/ML Vitals/IOs Vital Signs Date Time Temp Pulse Resp B/P (MAP) Pulse Ox O2 Delivery O2 Flow Rate FiO2 07/11/17 05:43 98.6 102 18 144/69 (94) 95 07/09/17 14:26 Room Air Intake and Output 07/11/17 07/11/17 07/11/17 07:59 15:59 23:59 Intake Total 480 ml Balance 480 ml Assessment & Plan Problem List: (1) Bipolar disorder, current episode mixed, severe, with psychotic features ICD Codes: F31.64 - Bipolar disorder, current episode mixed, severe, with psychotic features Assessment & Plan Estimated LOS: days patient continues somewhat intrusive irritable angry though the affect is markedly diminished from prior hospitalization. He is gait is more a shuffling gait it appears somewhat less focused. For now see medication adjustments above Justification for Cont. Inpt. At this time patient decompensated placed in a lower level of care Discharge Planning Placement may become difficult Request HC Surrog/Guard Advoc?: No Tyler Batista MD Jul 11, 2017 16:41
[2017-07-11 18:00] VITALS: BP 117/56; PULSE 78; RESP 18; TEMP 98.3; O2SAT 99
[2017-07-11] MEDS: QUEtiapine FUMARATE 200 MG TAB PO SCH (21:15)
[2017-07-11] MEDS: carBAMazepine 200 MG TAB PO SCH (21:15)
[2017-07-11] MEDS: traZODone HCL 50 MG TAB PO SCH (21:15)
[2017-07-12] MEDS: LEVOTHYROXINE SODIUM 75 MCG TAB PO SCH (05:16)
[2017-07-12] MEDS: ACETAMINOPHEN 325 MG TAB PO PRN ×2 (05:16→21:04)
[2017-07-12 06:49] VITALS: BP 108/59; PULSE 87; RESP 18; TEMP 97.8; O2SAT 100
[2017-07-12 07:32] LABS: AUTOMATED NEUTROPHIL # 3.2 TH/MM3 (1.8-7.7); BASOPHIL % 0.6 % (0.0-2.0); EOSINOPHIL % 0.7 % (0.0-4.0); HEMATOCRIT 28.9 % (39.0-51.0); LYMPH % 16.5 % (9.0-44.0); LYMPHOCYTE # 0.7 TH/MM3 (1.0-4.8); MEAN CELL VOLUME 85.9 FL (80.0-100.0); MEAN CORPUSCULAR HEMOGLOBIN 29.7 PG (27.0-34.0); MEAN CORPUSCULAR HGB CONC 34.6 % (32.0-36.0); MONO % 10.8 % (0.0-8.0); MONOCYTE # 0.5 TH/MM3 (0-0.9); NEUT % 71.4 % (16.0-70.0); PLATELET COUNT 252 TH/MM3 (150-450); RED BLOOD COUNT 3.36 MIL/MM3 (4.50-5.90); RED CELL DISTRIBUTION WIDTH 13.1 % (11.6-17.2); WHITE BLOOD COUNT 4.5 TH/MM3 (4.0-11.0)
[2017-07-12 08:01] LABS: ALBUMIN 3.4 GM/DL (3.4-5.0); AST (GOT) 69 U/L (15-37); BICARBONATE 27.1 MEQ/L (21.0-32.0); BLOOD UREA NITROGEN 13 MG/DL (7-18); CALCIUM 9.1 MG/DL (8.5-10.1); CHLORIDE 96 MEQ/L (98-107); GLUCOSE,RANDOM 90 MG/DL (74-106); SODIUM (NA) 132 MEQ/L (136-145)
[2017-07-12 08:12] LABS: ALKALINE PHOSPHATASE 81 U/L (45-117); ALT (GPT) 56 U/L (12-78); CREATININE 1.17 MG/DL (0.60-1.30); GLOMERULAR FILTRATION RATE 61 ML/MIN (>89); PHOSPHORUS 2.9 MG/DL (2.5-4.9); TOTAL BILIRUBIN ADULT 0.4 MG/DL (0.2-1.0); TOTAL PROTEIN 6.5 GM/DL (6.4-8.2)
[2017-07-12] MEDS: ALUMINUM/MAGNESIUM/SIMETH 30 ML CUP PO PRN (08:50)
[2017-07-12] MEDS: SODIUM CHLORIDE 1 GRAM TAB PO SCH ×2 (09:17→21:03)
[2017-07-12] MEDS: TAMSULOSIN HCL 0.4 MG CAP PO SCH (09:17)
--- NOTE | 2017-07-12 15:00 | HHI.PYPN ---
Subjective Chief Complaint: are not eating noncompliant medications increased irritability wandering ps Remarks Patient seen in [facility] with floor staff, patient somewhat calmer today his anxiety persists but slight decrease in intensity. He is still fairly well focused with his conversation. Continues to refuse to return to his old [facility], is excited about possibly have being interviewed by another [facility] tomorrow. Patient compliant medications. Denies suicidality or voices. Swallow study reviewed and agreed with the appreciated. For now continue treatment Review of Systems Except as stated in HPI: all other systems reviewed are Neg Mental Status Examination Appearance: Appropriate Consciousness: Alert Orientation: x4 Motor Activity: Other (somewhat shuffling gait) Speech: Pressured, Rapid Language: Perseveration (mild) Fund of Knowledge: Adequate Attention and Concentration: Other (fair) Memory: Unremarkable Mood: Anxious, Irritable Affect: Other (increased range and intensity) Thought Process & Associations: Logical, Disorganized Thought Content: Ideas of reference Hallucination Type: None Delusion Type: Paranoid Suicidal Ideation: No Suicidal Plan: No Suicidal Intention: No Homicidal Ideation: No Homicidal Plan: No Homicidal Intention: No Insight: Poor Judgment: Poor Results Labs Test 07/12/17 06:55 White Blood Count 4.5 TH/MM3 Red Blood Count 3.36 MIL/MM3 Hemoglobin 10.0 GM/DL Hematocrit 28.9 % Mean Corpuscular Volume 85.9 FL Mean Corpuscular Hemoglobin 29.7 PG Mean Corpuscular Hemoglobin Concent 34.6 % Red Cell Distribution Width 13.1 % Platelet Count 252 TH/MM3 Mean Platelet Volume 7.0 FL Neutrophils (%) (Auto) 71.4 % Lymphocytes (%) (Auto) 16.5 % Monocytes (%) (Auto) 10.8 % Eosinophils (%) (Auto) 0.7 % Basophils (%) (Auto) 0.6 % Neutrophils # (Auto) 3.2 TH/MM3 Lymphocytes # (Auto) 0.7 TH/MM3 Monocytes # (Auto) 0.5 TH/MM3 Eosinophils # (Auto) 0.0 TH/MM3 Basophils # (Auto) 0.0 TH/MM3 CBC Comment DIFF FINAL Differential Comment Blood Urea Nitrogen 13 MG/DL Creatinine 1.17 MG/DL Random Glucose 90 MG/DL Total Protein 6.5 GM/DL Albumin 3.4 GM/DL Calcium Level 9.1 MG/DL Phosphorus Level 2.9 MG/DL Magnesium Level 2.0 MG/DL Alkaline Phosphatase 81 U/L Aspartate Amino Transf (AST/SGOT) 69 U/L Alanine Aminotransferase (ALT/SGPT) 56 U/L Total Bilirubin 0.4 MG/DL Sodium Level 132 MEQ/L Potassium Level 3.8 MEQ/L Chloride Level 96 MEQ/L Carbon Dioxide Level 27.1 MEQ/L Anion Gap 9 MEQ/L Estimat Glomerular Filtration Rate 61 ML/MIN Vitals/IOs Vital Signs Date Time Temp Pulse Resp B/P (MAP) Pulse Ox O2 Delivery O2 Flow Rate FiO2 07/12/17 06:49 97.8 87 18 108/59 (75) 100 07/09/17 14:26 Room Air Intake and Output 07/12/17 07/12/17 07/13/17 08:00 16:00 00:00 Intake Total 120 ml Balance 120 ml Assessment & Plan Problem List: (1) Bipolar disorder, current episode mixed, severe, with psychotic features ICD Codes: F31.64 - Bipolar disorder, current episode mixed, severe, with psychotic features Assessment & Plan Estimated LOS: days patient continues somewhat intrusive and irritable but decreased from prior hospitalization. Compliant medications. For now continue treatment no change Justification for Cont. Inpt. At this time patient decompensated placed in the lower level of care Discharge Planning Placement may become problematic Request HC Surrog/Guard Advoc?: Tyler Singletary MD Jul 12, 2017 15:00
--- NOTE | 2017-07-12 16:41 | HHI.PR ---
Subjective Remarks f/u hyponatremia Sodium is 132, discussed with patient, patient is doing to take more sodium. No overnight events, not drinking a lot of water. Denies any complaints. Objective Vitals Vital Signs Date Time Temp Pulse Resp B/P (MAP) Pulse Ox O2 Delivery O2 Flow Rate FiO2 07/12/17 06:49 97.8 87 18 108/59 (75) 100 07/11/17 18:00 98.3 78 18 117/56 (76) 99 I/O 07/11/17 07/11/17 07/11/17 07/12/17 07/12/17 07/12/17 07:00 15:00 23:00 07:00 15:00 23:00 Intake Total 480 ml 600 ml 120 ml 120 ml Balance 480 ml 600 ml 120 ml 120 ml Intake Oral 480 ml 600 ml 120 ml 120 ml # Voids 3 3 1 # Bowel Movements 1 Result Diagram: 07/12/17 0655 07/12/17 0655 Objective Remarks GENERAL: Awake alert talkative and cooperative appears stated age CARDIOVASCULAR: Regular rate and rhythm. S1 and S2 no S3 or S4 RESPIRATORY: No accessory muscle use. Clear to auscultation. Breath sounds equal bilaterally. GASTROINTESTINAL: Abdomen soft, non-tender, nondistended. Hepatic and splenic margins not palpable. MUSCULOSKELETAL: Extremities without clubbing, cyanosis, or edema. No obvious deformities. NEUROLOGICAL: Awake and alert. No obvious cranial nerve deficits. Motor grossly within normal limits. A/P Assessment and Plan Bipolar disorder management per psych Hyponatremia Na at 125 on admission, now 132. May be secondary to dehydration versus psychotropic medications. Continue sodium chloride tablets. Recheck BMP tomorrow. If still within acceptable limits, we will sign off. BPH - contnue flomax Hypothyroidism - continue levothyroxine Parkinson continue home medications as appropriate. Mild AST elevation- 2x elevation, could be secondary to carbamazepine, recheck in one week. DVT prophylaxis - ambulation Theresa Robles MD Jul 12, 2017 16:41
[2017-07-12 18:35] VITALS: BP 108/54; PULSE 91; RESP 16; TEMP 98.5; O2SAT 100
[2017-07-12] MEDS: traZODone HCL 50 MG TAB PO SCH (21:00)
[2017-07-12] MEDS: QUEtiapine FUMARATE 200 MG TAB PO SCH (21:03)
[2017-07-12] MEDS: carBAMazepine 200 MG TAB PO SCH (21:03)
[2017-07-13] MEDS: ACETAMINOPHEN 325 MG TAB PO PRN ×2 (06:30→23:03)
[2017-07-13] MEDS: LEVOTHYROXINE SODIUM 75 MCG TAB PO SCH (06:31)
[2017-07-13] MEDS: SODIUM CHLORIDE 1 GRAM TAB PO SCH ×2 (08:58→20:49)
[2017-07-13] MEDS: TAMSULOSIN HCL 0.4 MG CAP PO SCH (08:58)
[2017-07-13 12:37] LABS: BICARBONATE 26.1 MEQ/L (21.0-32.0); CALCIUM 9.1 MG/DL (8.5-10.1); CREATININE 1.13 MG/DL (0.60-1.30)
--- NOTE | 2017-07-13 13:38 | HHI.PYPN ---
Subjective Chief Complaint: are not eating noncompliant medications increased irritability wandering ps Remarks Patient seen in the room the floor staff, chart review, patient compliant medication. Patient to work with a shuffling step. Somewhat less intrusive. Review of Systems Except as stated in HPI: all other systems reviewed are Neg Mental Status Examination Appearance: Appropriate Consciousness: Alert Orientation: x4 Motor Activity: Other (somewhat shuffling gait) Speech: Pressured, Rapid Language: Perseveration (mild) Fund of Knowledge: Adequate Attention and Concentration: Other (fair) Memory: Unremarkable Mood: Anxious, Irritable Affect: Other (increased range and intensity) Thought Process & Associations: Logical, Disorganized Thought Content: Ideas of reference Hallucination Type: None Delusion Type: Paranoid Suicidal Ideation: No Suicidal Plan: No Suicidal Intention: No Homicidal Ideation: No Homicidal Plan: No Homicidal Intention: No Insight: Poor Judgment: Poor Results Labs Test 07/13/17 11:05 Blood Urea Nitrogen 15 MG/DL Creatinine 1.13 MG/DL Random Glucose 73 MG/DL Calcium Level 9.1 MG/DL Sodium Level 130 MEQ/L Potassium Level 4.0 MEQ/L Chloride Level 97 MEQ/L Carbon Dioxide Level 26.1 MEQ/L Anion Gap 7 MEQ/L Estimat Glomerular Filtration Rate 64 ML/MIN Vitals/IOs Vital Signs Date Time Temp Pulse Resp B/P (MAP) Pulse Ox O2 Delivery O2 Flow Rate FiO2 07/12/17 18:35 98.5 91 16 108/54 (72) 100 07/09/17 14:26 Room Air Intake and Output 07/13/17 07/13/17 07/14/17 08:00 16:00 00:00 Intake Total 360 ml Balance 360 ml Assessment & Plan Problem List: (1) Bipolar disorder, current episode mixed, severe, with psychotic features ICD Codes: F31.64 - Bipolar disorder, current episode mixed, severe, with psychotic features Assessment & Plan Estimated LOS: days patient remains somewhat intrusive and intense, though not as bad as prior. Continues reluctance somewhat shuffling walk. He denies suicidality. Does deny voices. For now continue treatment Justification for Cont. Inpt. At this time patient decompensate if placed in a lower level of care Discharge Planning Placement may become problematic Request HC Surrog/Guard Advoc?: Tyler Singletary MD Jul 13, 2017 13:38
[2017-07-13 18:20] VITALS: BP 121/68; PULSE 69; RESP 18; TEMP 97.6; O2SAT 100
[2017-07-13] MEDS: QUEtiapine FUMARATE 200 MG TAB PO SCH (20:49)
[2017-07-13] MEDS: traZODone HCL 50 MG TAB PO SCH (20:49)
[2017-07-13] MEDS: carBAMazepine 200 MG TAB PO SCH (20:49)
[2017-07-13] MEDS: diphenhydrAMINE HCL 25 MG CAP PO PRN (22:25)
[2017-07-14] MEDS: ACETAMINOPHEN 325 MG TAB PO PRN ×3 (03:56→21:28)
[2017-07-14 05:37] VITALS: BP 106/65; PULSE 65; RESP 18; TEMP 98; O2SAT 100
[2017-07-14] MEDS: LEVOTHYROXINE SODIUM 75 MCG TAB PO SCH (06:12)
[2017-07-14] MEDS: TAMSULOSIN HCL 0.4 MG CAP PO SCH (09:04)
[2017-07-14] MEDS: SODIUM CHLORIDE 1 GRAM TAB PO SCH ×2 (09:04→21:02)
[2017-07-14] MEDS: LORazepam 0.5 MG TAB PO PRN (11:40)
--- NOTE | 2017-07-14 16:23 | HHI.PYPN ---
Subjective Chief Complaint: are not eating noncompliant medications increased irritability wandering ps Remarks Patient seen in [facility] with floor staff, chart reviewed, patient compliant medication. Tegretol level drawn this a.m. is 5.4 on 100 mg a.m. 200 mg at bedtime. Will increase Tegretol to 200 mg morning and evening repeat blood level on 07/18, patient continues somewhat intrusive and wandering though the intensity and the tremors are somewhat less. For now continue treatment Review of Systems Except as stated in HPI: all other systems reviewed are Neg Mental Status Examination Appearance: Appropriate Consciousness: Alert Orientation: x4 Motor Activity: Other (somewhat shuffling gait) Speech: Pressured, Rapid Language: Perseveration (mild) Fund of Knowledge: Adequate Attention and Concentration: Other (fair) Memory: Unremarkable Mood: Anxious, Irritable Affect: Other (increased range and intensity) Thought Process & Associations: Logical, Disorganized Thought Content: Ideas of reference Hallucination Type: None Delusion Type: Paranoid Suicidal Ideation: No Suicidal Plan: No Suicidal Intention: No Homicidal Ideation: No Homicidal Plan: No Homicidal Intention: No Insight: Poor Judgment: Poor Results Labs Test 07/14/17 06:25 Carbamazepine (Tegretol) Level 5.4 MCG/ML Vitals/IOs Vital Signs Date Time Temp Pulse Resp B/P (MAP) Pulse Ox O2 Delivery O2 Flow Rate FiO2 07/14/17 05:37 98.0 65 18 106/65 (79) 100 Intake and Output 07/14/17 07/14/17 07/15/17 08:00 16:00 00:00 Intake Total 240 ml 1280 ml Balance 240 ml 1280 ml Assessment & Plan Problem List: (1) Bipolar disorder, current episode mixed, severe, with psychotic features ICD Codes: F31.64 - Bipolar disorder, current episode mixed, severe, with psychotic features Assessment & Plan Estimated LOS: days patient's intensity was affect is softening, his speech is not quite as rapid or pressured. She medication adjustments above Justification for Cont. Inpt. At this time patient will decompensate and placed in a lower level of care Discharge Planning Placement is problematic Request HC Surrog/Guard Advoc?: No Tyler Batista MD Jul 14, 2017 16:23
--- NOTE | 2017-07-14 16:58 | HHI.PR ---
Subjective Remarks Follow up for hyponatremia. Patient is doing well. Ambulating well. States he is tolerating food well. No acute concerns. Objective Vitals Vital Signs Date Time Temp Pulse Resp B/P (MAP) Pulse Ox O2 Delivery O2 Flow Rate FiO2 07/14/17 05:37 98.0 65 18 106/65 (79) 100 07/13/17 18:20 97.6 69 18 121/68 (85) 100 I/O 07/13/17 07/13/17 07/13/17 07/14/17 07/14/17 07/14/17 07:00 15:00 23:00 07:00 15:00 23:00 Intake Total 720 ml 480 ml 1470 ml 240 ml 1280 ml Balance 720 ml 480 ml 1470 ml 240 ml 1280 ml Intake Oral 720 ml 480 ml 1470 ml 240 ml 1280 ml # Voids 1 3 1 Result Diagram: 07/12/17 0655 07/13/17 1105 Objective Remarks GENERAL: Alert, NAD. SKIN: Warm and dry. HEAD: Normocephalic. EYES: No scleral icterus. No injection or drainage. NECK: Supple, trachea midline. No JVD or lymphadenopathy. CARDIOVASCULAR: Regular rate and rhythm without murmurs, gallops, or rubs. RESPIRATORY: Breath sounds equal bilaterally. No accessory muscle use. GASTROINTESTINAL: Abdomen soft, non-tender, nondistended. MUSCULOSKELETAL: No cyanosis, or edema. BACK: Nontender without obvious deformity. No CVA tenderness. Procedures None. A/P Assessment and Plan Bipolar disorder management per psych Hyponatremia Na at 125 on admission, now 132 --> 130. May be secondary to dehydration versus psychotropic medications. Continue sodium chloride tablets. Recheck BMP tomorrow. BPH - continue Flomax Hypothyroidism - continue levothyroxine 75mcg Qday. DVT prophylaxis - ambulation Laura Hills DO Jul 14, 2017 16:58
[2017-07-14 18:46] VITALS: BP 104/53; PULSE 80; RESP 18; TEMP 97.9; O2SAT 100
[2017-07-14] MEDS: QUEtiapine FUMARATE 200 MG TAB PO SCH (21:02)
[2017-07-14] MEDS: carBAMazepine 200 MG TAB PO SCH (21:02)
[2017-07-14] MEDS: traZODone HCL 50 MG TAB PO SCH (21:02)
[2017-07-14] MEDS: diphenhydrAMINE HCL 25 MG CAP PO PRN (21:03)
[2017-07-15] MEDS: LEVOTHYROXINE SODIUM 75 MCG TAB PO SCH (04:11)
[2017-07-15] MEDS: ACETAMINOPHEN 325 MG TAB PO PRN ×2 (04:11→15:01)
[2017-07-15 06:10] VITALS: BP 107/66; PULSE 70; RESP 20; TEMP 97.5; O2SAT 100
[2017-07-15] MEDS: SODIUM CHLORIDE 1 GRAM TAB PO SCH ×2 (08:11→20:45)
[2017-07-15] MEDS: TAMSULOSIN HCL 0.4 MG CAP PO SCH (08:11)
[2017-07-15] MEDS: carBAMazepine 200 MG TAB PO SCH ×2 (08:11→20:45)
[2017-07-15 08:34] LABS: BICARBONATE 27.5 MEQ/L (21.0-32.0); CALCIUM 9.2 MG/DL (8.5-10.1); CREATININE 0.98 MG/DL (0.60-1.30)
--- NOTE | 2017-07-15 11:02 | PD.TTN ---
Patient Problems 1. Discharge planning 2. Medication compliance 3. Knowledge deficit 4. Lack of coping skills Progress Toward Goals Provider Present: Dr. Martha Batista Provider Input: 07/15/17 still adjusting the [place] improving a little getting close to base line Psychiatric Counselors Present: Lucille Ureña LCSW Psych Therapist Input: 07/15/17 [facility] will meet with patient tomorrow , he has been decompensating at [facility] and is in need for better care in an [facility] - overall he is med compliant but still paces and has some aggitation Group Spec/RT/OT/[place] Input: 07/15/17 he attends groups, needs some redirection and his mood is depressed. Lucille Ureña LCSW Jul 15, 2017 11:02
--- NOTE | 2017-07-15 13:12 | HHI.PYPN ---
Subjective Chief Complaint: are not eating noncompliant medications increased irritability wandering ps Remarks Patient seen in [place] with nurse Lauren, patient somewhat calmer less tremulous less shuffling. Continues pleasant with me but at times somewhat confused. Is hoping to be placed in a half-way that interviewed him earlier this week. Patient's vital signs remained fairly stable. For now continue treatment Review of Systems Except as stated in HPI: all other systems reviewed are Neg Mental Status Examination Appearance: Appropriate Consciousness: Alert Orientation: x4 Motor Activity: Other (somewhat shuffling gait) Speech: Pressured, Rapid Language: Perseveration (mild) Fund of Knowledge: Adequate Attention and Concentration: Other (fair) Memory: Unremarkable Mood: Anxious, Irritable Affect: Other (increased range and intensity) Thought Process & Associations: Logical, Disorganized Thought Content: Ideas of reference Hallucination Type: None Delusion Type: Paranoid Suicidal Ideation: No Suicidal Plan: No Suicidal Intention: No Homicidal Ideation: No Homicidal Plan: No Homicidal Intention: No Insight: Poor Judgment: Poor Results Labs Test 07/15/17 07:37 Blood Urea Nitrogen 12 MG/DL Creatinine 0.98 MG/DL Random Glucose 81 MG/DL Calcium Level 9.2 MG/DL Sodium Level 126 MEQ/L Potassium Level 4.2 MEQ/L Chloride Level 93 MEQ/L Carbon Dioxide Level 27.5 MEQ/L Anion Gap 6 MEQ/L Estimat Glomerular Filtration Rate 75 ML/MIN Vitals/IOs Vital Signs Date Time Temp Pulse Resp B/P (MAP) Pulse Ox O2 Delivery O2 Flow Rate FiO2 07/15/17 06:10 97.5 70 20 107/66 (80) 100 Intake and Output 07/15/17 07/15/17 07/16/17 08:00 16:00 00:00 Intake Total 120 ml 240 ml Balance 120 ml 240 ml Assessment & Plan Problem List: (1) Bipolar disorder, current episode mixed, severe, with psychotic features ICD Codes: F31.64 - Bipolar disorder, current episode mixed, severe, with psychotic features Assessment & Plan Estimated LOS: days patient irritability intrusiveness rapid pressured speech is somewhat softer. Patient still needs encouragement with meals. Justification for Cont. Inpt. At this time patient will decompensate placed in the lower level of care Discharge Planning Continue to work with placement Request HC Surrog/Guard Advoc?: No Tyler Batista MD Jul 15, 2017 13:12
[2017-07-15 18:00] VITALS: BP 129/62; PULSE 75; RESP 18; TEMP 98.4; O2SAT 100
[2017-07-15] MEDS: traZODone HCL 50 MG TAB PO SCH (20:44)
[2017-07-15] MEDS: QUEtiapine FUMARATE 200 MG TAB PO SCH (20:45)
[2017-07-15] MEDS: LORazepam 2 MG/ML VIAL IM PRN (22:24)
[2017-07-16 06:00] VITALS: BP 95/58; PULSE 65; RESP 16; TEMP 97.8; O2SAT 96
[2017-07-16] MEDS: LEVOTHYROXINE SODIUM 75 MCG TAB PO SCH (06:35)
[2017-07-16] MEDS: ACETAMINOPHEN 325 MG TAB PO PRN ×3 (06:35→20:17)
[2017-07-16] MEDS: SODIUM CHLORIDE 1 GRAM TAB PO SCH ×2 (09:04→20:22)
[2017-07-16] MEDS: TAMSULOSIN HCL 0.4 MG CAP PO SCH (09:04)
[2017-07-16] MEDS: carBAMazepine 200 MG TAB PO SCH ×2 (09:05→20:22)
[2017-07-16 09:21] VITALS: BP 111/62; PULSE 65
--- NOTE | 2017-07-16 14:46 | HHI.PR ---
Subjective Remarks Follow-up visit hyponatremia, BPH. Patient seen and examined today in the hallway. Walking around and does not want to stop walking. Guided towards his bedroom. Patient states he is doing well. Very irritable. Denies pain and discomfort. Denies SOB/ dyspnea. Denies chest pain, palpitations, headaches, dizziness. Denies fevers, chills, n/v/d. Objective Vitals Vital Signs Date Time Temp Pulse Resp B/P (MAP) Pulse Ox O2 Delivery O2 Flow Rate FiO2 07/16/17 09:21 65 111/62 (78) 07/16/17 06:00 97.8 65 16 95/58 (70) 96 07/15/17 18:00 98.4 75 18 129/62 (84) 100 I/O 07/15/17 07/15/17 07/15/17 07/16/17 07/16/17 07/16/17 07:00 15:00 23:00 07:00 15:00 23:00 Intake Total 120 ml 240 ml 480 ml 240 ml 480 ml Balance 120 ml 240 ml 480 ml 240 ml 480 ml Intake Oral 120 ml 240 ml 480 ml 240 ml 480 ml # Voids 2 1 3 # Bowel Movements 1 Result Diagram: 07/12/17 0655 07/15/17 0737 Objective Remarks GENERAL: This is a thin-appearing, well-developed patient, in no apparent distress. SKIN: Warm and dry. HEENT: Normocephalic. Pupils equal round and reactive. Nose without bleeding. Airway patent. NECK: Trachea midline. CARDIOVASCULAR: Regular rate and rhythm without murmurs, gallops, or rubs. RESPIRATORY: No wheezes, rales, or rhonchi. GASTROINTESTINAL: Abdomen soft, non-tender, nondistended. Bowel Sounds normoactive x4. MUSCULOSKELETAL: Extremities without clubbing, cyanosis, or edema. NEUROLOGICAL: Awake and alert. Flat affect. Normal speech. Procedures None. A/P Problem List: (1) Hyponatremia ICD Code: E87.1 - Hypo-osmolality and hyponatremia (2) Bipolar disorder, current episode mixed, severe, with psychotic features ICD Code: F31.64 - Bipolar disorder, current episode mixed, severe, with psychotic features (3) Schizoaffective disorder ICD Code: F25.9 - Schizoaffective disorder, unspecified Status: Acute (4) Urinary retention ICD Code: R33.9 - Retention of urine, unspecified Status: Resolved Assessment and Plan Patient is a 72-year-old male with Bipolar disorder - management per psych Hyponatremia Na at 125 on admission, now 132 --> 130. - May be secondary to dehydration versus psychotropic medications. Continue sodium chloride tablets. - Recheck BMP tomorrow. BPH - continue Flomax Hypothyroidism - continue levothyroxine 75mcg Qday. DVT prophylaxis - ambulation Nicholas Wiggins Jul 16, 2017 14:46
[2017-07-16 17:00] VITALS: BP 119/61; PULSE 76; RESP 16; TEMP 97.8; O2SAT 97
[2017-07-16] MEDS: ALUMINUM/MAGNESIUM/SIMETH 30 ML CUP PO PRN (17:00)
[2017-07-16] MEDS: LORazepam 0.5 MG TAB PO PRN (17:52)
--- NOTE | 2017-07-16 19:02 | HHI.PYPN ---
Subjective Chief Complaint: are not eating noncompliant medications increased irritability wandering ps Remarks Patient was seen and case discussed with nursing. Was interviewed in bed. Patient has poor eye contact and is facing the other way. Thought processes is disorganized and perseverative. He is compliant with his medications. Behaving well on the unit. Appears less intrusive compared to her last interview. Patient remains hyponatremic and is being followed by the medical team Mental Status Examination Appearance: Appropriate Consciousness: Alert Orientation: x4 Motor Activity: Other (somewhat shuffling gait) Speech: Pressured Language: Perseveration (mild) Fund of Knowledge: Adequate Attention and Concentration: Other (fair) Memory: Unremarkable Mood: Anxious, Irritable Affect: Other (increased range and intensity) Thought Process & Associations: Logical, Disorganized Thought Content: Ideas of reference Hallucination Type: None Delusion Type: Paranoid Suicidal Ideation: No Suicidal Plan: No Suicidal Intention: No Homicidal Ideation: No Homicidal Plan: No Homicidal Intention: No Insight: Poor Judgment: Poor Results Vitals/IOs Vital Signs Date Time Temp Pulse Resp B/P (MAP) Pulse Ox O2 Delivery O2 Flow Rate FiO2 07/16/17 17:00 97.8 76 16 119/61 (80) 97 Intake and Output 07/16/17 07/16/17 07/17/17 08:00 16:00 00:00 Intake Total 480 ml 240 ml 240 ml Balance 480 ml 240 ml 240 ml Assessment & Plan Problem List: (1) Bipolar disorder, current episode mixed, severe, with psychotic features ICD Codes: F31.64 - Bipolar disorder, current episode mixed, severe, with psychotic features Assessment & Plan Continue current treatment plan. Justification for Cont. Inpt. Patient would decompensate in a less restrictive setting Request HC Surrog/Guard Advoc?: No Ke Coello DO Jul 16, 2017 19:01
[2017-07-16] MEDS: QUEtiapine FUMARATE 200 MG TAB PO SCH (20:17)
[2017-07-16] MEDS: traZODone HCL 50 MG TAB PO SCH (20:22)
[2017-07-16] MEDS: diphenhydrAMINE HCL 25 MG CAP PO PRN (20:22)
[2017-07-17 01:10] VITALS: BP 117/59; PULSE 69; RESP 18; TEMP 98.2
[2017-07-17] MEDS: LORazepam 2 MG/ML VIAL IM PRN (01:50)
[2017-07-17 06:00] VITALS: BP 103/54; PULSE 65; RESP 16; TEMP 97.3; O2SAT 98
[2017-07-17] MEDS: LEVOTHYROXINE SODIUM 75 MCG TAB PO SCH (06:35)
[2017-07-17 08:41] LABS: BICARBONATE 28.4 MEQ/L (21.0-32.0); CALCIUM 9.1 MG/DL (8.5-10.1); CREATININE 0.99 MG/DL (0.60-1.30)
[2017-07-17] MEDS: carBAMazepine 200 MG TAB PO SCH (08:47)
[2017-07-17] MEDS: SODIUM CHLORIDE 1 GRAM TAB PO SCH ×2 (08:47→22:07)
[2017-07-17] MEDS: TAMSULOSIN HCL 0.4 MG CAP PO SCH (08:47)
[2017-07-17] MEDS: ACETAMINOPHEN 325 MG TAB PO PRN ×3 (10:02→22:06)
--- NOTE | 2017-07-17 13:34 | HHI.PR ---
Subjective Remarks Follow-up visit hyponatremia, BPH. Patient seen and examined today in the hallway. Patient states his doing okay. Denies any dizziness, headaches, visual changes, chest pain, palpitations. Denies any fevers, chills, nausea, vomiting, diarrhea. States appetite is okay. Discuss with patient that his sodium levels continued to be low. Patient may need to start IV fluids. Labs need to be checked. Patient is agreeable to plan. Objective Vitals Vital Signs Date Time Temp Pulse Resp B/P (MAP) Pulse Ox O2 Delivery O2 Flow Rate FiO2 07/17/17 06:00 97.3 65 16 103/54 (70) 98 07/17/17 01:10 98.2 69 18 117/59 (78) 07/16/17 17:00 97.8 76 16 119/61 (80) 97 I/O 07/16/17 07/16/17 07/16/17 07/17/17 07/17/17 07/17/17 07:00 15:00 23:00 07:00 15:00 23:00 Intake Total 240 ml 480 ml 360 ml 120 ml Balance 240 ml 480 ml 360 ml 120 ml Intake Oral 240 ml 480 ml 360 ml 120 ml # Voids 3 1 3 Result Diagram: 07/17/17 0707 Objective Remarks GENERAL: This is a thin-appearing, well-developed patient, in no apparent distress. SKIN: Warm and dry. Pale. HEENT: Normocephalic. Pupils equal round and reactive. Nose without bleeding. Airway patent. NECK: Trachea midline. CARDIOVASCULAR: Regular rate and rhythm without murmurs, gallops, or rubs. RESPIRATORY: No wheezes, rales, or rhonchi. GASTROINTESTINAL: Abdomen soft, non-tender, nondistended. Bowel Sounds normoactive x4. MUSCULOSKELETAL: Extremities without clubbing, cyanosis, or edema. NEUROLOGICAL: Awake and alert. Flat affect. Normal speech. Procedures None. A/P Problem List: (1) Hyponatremia ICD Code: E87.1 - Hypo-osmolality and hyponatremia (2) Bipolar disorder, current episode mixed, severe, with psychotic features ICD Code: F31.64 - Bipolar disorder, current episode mixed, severe, with psychotic features (3) Schizoaffective disorder ICD Code: F25.9 - Schizoaffective disorder, unspecified Status: Acute (4) Urinary retention ICD Code: R33.9 - Retention of urine, unspecified Status: Resolved Assessment and Plan Patient is a 72-year-old male with Bipolar disorder - management per psych Hyponatremia Na at 125 on admission, now 132 --> 130 --> 126 --> 125 - May be secondary to dehydration versus psychotropic medications. - Continue sodium chloride tablets. - Check urine sodium, check serum osmolality - NS 100ml/hr, if serum osmo is low will stop fluids. - Review meds that can contribute to hyponatremia. ?SIADH - Check labs in a.m. BPH - continue Flomax Hypothyroidism - continue levothyroxine 75mcg Qday. DVT prophylaxis - ambulation Discuss with patient, nursing, Nicholas Ibarra Jul 17, 2017 1:34 pm
[2017-07-17] MEDS ORDERED: SODIUM CHLOR 0.9% 1000 ML INJ 1,000 ML IV SCH (13:45)
[2017-07-17] MEDS: LORazepam 0.5 MG TAB PO PRN (15:26)
[2017-07-17 15:33] LABS: HEMATOCRIT 27.6 % (39.0-51.0); HEMOGLOBIN 10.1 GM/DL (13.0-17.0); MEAN CELL VOLUME 85.2 FL (80.0-100.0); MEAN CORPUSCULAR HEMOGLOBIN 31.1 PG (27.0-34.0); MEAN PLATELET VOLUME 7.6 FL (7.0-11.0); PLATELET COUNT 283 TH/MM3 (150-450); RED BLOOD COUNT 3.25 MIL/MM3 (4.50-5.90); RED CELL DISTRIBUTION WIDTH 13.4 % (11.6-17.2); WHITE BLOOD COUNT 6.8 TH/MM3 (4.0-11.0)
[2017-07-17 16:09] LABS: MEAN CORPUSCULAR HGB CONC 36.5 % (32.0-36.0)
--- NOTE | 2017-07-17 16:49 | HHI.PYPN ---
Subjective Chief Complaint: are not eating noncompliant medications increased irritability wandering ps Remarks Patient was seen and case discussed with nursing. Patient was transferred to the medical/psychiatric floor for hyponatremia. Sodium was 125. Patient remains grandiose and delusional with poor insight. Medication review was done and carbamazepine and quetiapine could both cause hyponatremia. It also appears patient has akathesia, constantly shuffling his legs. I will lower seroquel to 200mg po qhs to help with akathesia. I will not make any further changes until medicine is aware of the changes give they can affect sodium levels. I do recommend that the treating psychiatrist coordinate with the medical team tomorrow to hold Tegretol or Seroquel. We will also get a Tegretol level tomorrow Mental Status Examination Appearance: Appropriate Consciousness: Alert Orientation: x4 Motor Activity: Other (somewhat shuffling gait) Speech: Pressured Language: Perseveration (mild) Fund of Knowledge: Adequate Attention and Concentration: Other (fair) Memory: Unremarkable Mood: Anxious, Irritable Affect: Other (increased range and intensity) Thought Process & Associations: Logical, Disorganized Thought Content: Ideas of reference Hallucination Type: None Delusion Type: Paranoid Suicidal Ideation: No Suicidal Plan: No Suicidal Intention: No Homicidal Ideation: No Homicidal Plan: No Homicidal Intention: No Insight: Poor Judgment: Poor Results Labs Test 07/17/17 07:07 07/17/17 14:54 Blood Urea Nitrogen 12 MG/DL Creatinine 0.99 MG/DL Random Glucose 90 MG/DL Calcium Level 9.1 MG/DL Sodium Level 125 MEQ/L Potassium Level 4.3 MEQ/L Chloride Level 92 MEQ/L Carbon Dioxide Level 28.4 MEQ/L Anion Gap 5 MEQ/L Estimat Glomerular Filtration Rate 75 ML/MIN Serum Osmolality 271 MOSM/KG White Blood Count 6.8 TH/MM3 Red Blood Count 3.25 MIL/MM3 Hemoglobin 10.1 GM/DL Hematocrit 27.6 % Mean Corpuscular Volume 85.2 FL Mean Corpuscular Hemoglobin 31.1 PG Mean Corpuscular Hemoglobin Concent 36.5 % Red Cell Distribution Width 13.4 % Platelet Count 283 TH/MM3 Mean Platelet Volume 7.6 FL Vitals/IOs Vital Signs Date Time Temp Pulse Resp B/P (MAP) Pulse Ox O2 Delivery O2 Flow Rate FiO2 07/17/17 06:00 97.3 65 16 103/54 (70) 98 Intake and Output 07/17/17 07/17/17 07/18/17 08:00 16:00 00:00 Intake Total 120 ml Balance 120 ml Assessment & Plan Problem List: (1) Bipolar disorder, current episode mixed, severe, with psychotic features ICD Codes: F31.64 - Bipolar disorder, current episode mixed, severe, with psychotic features Assessment & Plan See history of present illness for plan Justification for Cont. Inpt. Patient will decompensate in a less restrictive setting Request HC Surrog/Guard Advoc?: No Ke Coello DO Jul 17, 2017 16:49
[2017-07-17] MEDS ORDERED: HALOPERIDOL LACTATE 5 MG/ML AMP ONE (17:24)
[2017-07-17] MEDS ORDERED: HALOPERIDOL LACTATE 5 MG/ML AMP IM ONE (17:30)
[2017-07-17 18:32] VITALS: BP 123/76; PULSE 64; RESP 16; TEMP 97.6; O2SAT 99
--- NOTE | 2017-07-17 18:34 | HHI.PR ---
Addendum to Inpatient Note Addendum Reason: Additional Documentation Additional Information Hyponatremia continues. Discussed with Dr. Henson. Medication list have bee reviewed. Patient is on Tegretol which can cause hyponatremia. According to recent study hyponatremia may occur and often caused by syndrome of inappropriate antidiuretic hormone secretion risk of SIADH appears to be dose related. Has been noted that patient's Tegretol has been increased from 100 mg to 200 mg twice a day. We'll discuss with psychiatry tomorrow if they can find another medication to recommend for patient to use or decrease the dose back to his original dosage may be appropriate to correct hyponatremia. Repeat BMP in the Nicholas Delgado Jul 17, 2017 18:34
[2017-07-17] MEDS ORDERED: QUEtiapine FUMARATE 200 MG TAB PO SCH (21:00)
[2017-07-17] MEDS: ALUMINUM/MAGNESIUM/SIMETH 30 ML CUP PO PRN (22:06)
[2017-07-17] MEDS: traZODone HCL 50 MG TAB PO SCH (22:07)
[2017-07-17] MEDS: diphenhydrAMINE HCL 25 MG CAP PO PRN (23:50)
[2017-07-18] MEDS: LORazepam 2 MG/ML VIAL IM PRN (01:16)
[2017-07-18 05:00] VITALS: BP 131/79; PULSE 70; RESP 20; TEMP 97.6; O2SAT 98
[2017-07-18] MEDS: LEVOTHYROXINE SODIUM 75 MCG TAB PO SCH (06:26)
[2017-07-18 07:05] LABS: BICARBONATE 26.1 MEQ/L (21.0-32.0); CALCIUM 8.7 MG/DL (8.5-10.1); CARBAMAZEPINE (TEGRETOL) 3.8 MCG/ML (4.0-12.0); CREATININE 0.8 MG/DL (0.60-1.30)
[2017-07-18] MEDS ORDERED: SODIUM CHLOR 0.9% 1000 ML INJ 1,000 ML IV ONE (08:15)
--- NOTE | 2017-07-18 09:46 | HHI.PYPN ---
Subjective Chief Complaint: are not eating noncompliant medications increased irritability wandering ps Remarks Patient seen in [place] with MICHELE and with medical student Avery yes, progress notes from medicine and psychiatry over the weekend reviewed. Patient is having episode of hyponatremia. There may be relationship to the dosage of the psychotropics. Will decrease Tegretol to 100 mg a.m. 200 mg at bedtime, and decrease Seroquel to 100 mg at bedtime. Patient continues to shuffle somewhat though cognitively he continues to be able to focus with us. There is a grandiosity with them. In still some intrusiveness. For now continue treatment Review of Systems Except as stated in HPI: all other systems reviewed are Neg Mental Status Examination Appearance: Appropriate Consciousness: Alert Orientation: x4 Motor Activity: Other (somewhat shuffling gait) Speech: Pressured Language: Perseveration (mild) Fund of Knowledge: Adequate Attention and Concentration: Other (fair) Memory: Unremarkable Mood: Anxious, Irritable Affect: Other (increased range and intensity) Thought Process & Associations: Logical, Disorganized Thought Content: Ideas of reference Hallucination Type: None Delusion Type: Paranoid Suicidal Ideation: No Suicidal Plan: No Suicidal Intention: No Homicidal Ideation: No Homicidal Plan: No Homicidal Intention: No Insight: Poor Judgment: Poor Results Labs Test 07/17/17 14:54 07/18/17 06:20 White Blood Count 6.8 TH/MM3 Red Blood Count 3.25 MIL/MM3 Hemoglobin 10.1 GM/DL Hematocrit 27.6 % Mean Corpuscular Volume 85.2 FL Mean Corpuscular Hemoglobin 31.1 PG Mean Corpuscular Hemoglobin Concent 36.5 % Red Cell Distribution Width 13.4 % Platelet Count 283 TH/MM3 Mean Platelet Volume 7.6 FL Blood Urea Nitrogen 11 MG/DL Creatinine 0.80 MG/DL Random Glucose 90 MG/DL Calcium Level 8.7 MG/DL Sodium Level 121 MEQ/L Potassium Level 4.3 MEQ/L Chloride Level 88 MEQ/L Carbon Dioxide Level 26.1 MEQ/L Anion Gap 7 MEQ/L Estimat Glomerular Filtration Rate 95 ML/MIN Serum Osmolality 251 MOSM/KG Carbamazepine (Tegretol) Level 3.8 MCG/ML Vitals/IOs Vital Signs Date Time Temp Pulse Resp B/P (MAP) Pulse Ox O2 Delivery O2 Flow Rate FiO2 07/18/17 05:00 97.6 70 20 131/79 (96) 98 Assessment & Plan Problem List: (1) Bipolar disorder, current episode mixed, severe, with psychotic features ICD Codes: F31.64 - Bipolar disorder, current episode mixed, severe, with psychotic features Assessment & Plan Estimated LOS: days patient remains somewhat intrusive and grandiose, is cooperating well with the treatment for the hyponatremia by the medicine team. Placement remains problematic she medication adjustment above Justification for Cont. Inpt. At this time patient would decompensated placed in a lower level of care Discharge Planning Placement remains problematic Request HC Surrog/Guard Advoc?: No Tyler Batista MD Jul 18, 2017 09:46
[2017-07-18] MEDS: SODIUM CHLORIDE 1 GRAM TAB PO SCH (09:52)
[2017-07-18] MEDS: ACETAMINOPHEN 325 MG TAB PO PRN (09:54)
[2017-07-18] MEDS ORDERED: PILL SPLITTER OTHER PRN (10:00)
--- NOTE | 2017-07-18 10:47 | HHI.PR ---
Subjective Remarks Patient seen this morning. Says he is feeling very anxious. Denies any chest pain or shortness of breath. Objective Vital Signs Date Time Temp Pulse Resp B/P (MAP) Pulse Ox O2 Delivery O2 Flow Rate FiO2 07/18/17 05:00 97.6 70 20 131/79 (96) 98 07/17/17 23:06 20 07/17/17 18:32 97.6 64 16 123/76 (92) 99 I/O 07/17/17 07/17/17 07/17/17 07/18/17 07/18/17 07/18/17 07:00 15:00 23:00 07:00 15:00 23:00 Intake Total 120 ml Balance 120 ml Intake Oral 120 ml # Voids 3 Result Diagram: 07/17/17 1454 07/18/17 0620 Objective Remarks GENERAL: Patient sitting up in bed. Appears anxious. SKIN: Warm and dry. HEAD: Normocephalic. EYES: No scleral icterus. No injection or drainage. NECK: Supple, trachea midline. No JVD. CARDIOVASCULAR: Regular rate and rhythm without murmurs, gallops, or rubs. RESPIRATORY: Breath sounds equal bilaterally. No accessory muscle use. GASTROINTESTINAL: Abdomen soft, non-tender, nondistended. MUSCULOSKELETAL: No cyanosis, or edema. BACK: Nontender without obvious deformity. No CVA tenderness. A/P Assessment and Plan Patient is a 72-year-old male with //Bipolar disorder - management per psych //Hyponatremia Na at 125 on admission, now 132 --> 130 --> 126 --> 125 - May be secondary to dehydration versus psychotropic medications. - Continue sodium chloride tablets. - Check urine sodium, check serum osmolality - NS 100ml/hr, if serum osmo is low will stop fluids. - Review meds that can contribute to hyponatremia. ?SIADH - Check labs in a.m. = 07/18. 21 from 125 yesterday. Serum osmolality 251. I'll give him 1/2 L IV bolus, hold Flomax. Blood pressure higher this morning in the 170s systolic. Urine labs ordered and pending. Recheck this afternoon. = Ideally would recommend discontinuation of all antipsychotics, which can all cause hyponatremia. //BPH -She denies any issues urinating. Discontinue Flomax. //Hypothyroidism - continue levothyroxine 75mcg Qday. ////DVT prophylaxis - ambulation Discharge Planning We will continue to follow Max Albert MD Jul 18, 2017 10:47
--- NOTE | 2017-07-18 11:03 | PD.TTN ---
Patient Problems 1. Discharge planning 2. Medication compliance 3. Knowledge deficit 4. Lack of coping skills Progress Toward Goals Provider Present: Dr. Martha Batista Provider Input: 07/18/17 transferred to medical, still titrating medications and still labile / meets criteria 07/15/17 still adjusting the Tegratol improving a little getting close to base line Psychiatric Counselors Present: Lucille Ureña LCSW Psych Therapist Input: 07/18/17 patient is in need for placement and may need more than a INTERMEDIATE, will work on referrals to SNF today vs INTERMEDIATE, [facility] was supposed to come weekend to assess but did not come- he has been eating limited and is very rigid in his moevements and paces a lot appearing to have possible side effects from medications or may be due to his medical issues that increased over the weekend 07/15/17 INTERMEDIATE [facility] will meet with patient tomorrow , he has been decompensating at [facility] and is in need for better care in an INTERMEDIATE - overall he is med compliant but still paces and has some aggitation Group Spec/RT/OT/CARRASCO Input: 07/18/17 patient is unable to tolerate group activities. He needs lots of redirection. 07/15/17 he attends groups, needs some redirection and his mood is depressed. Lucille Ureña LCSW Jul 18, 2017 11:03
[2017-07-18 15:05] LABS: ALBUMIN 3.8 GM/DL (3.4-5.0); DIRECT BILIRUBIN ADULT 0.1 MG/DL (0.0-0.2)
[2017-07-18 15:09] LABS: BICARBONATE 26.3 MEQ/L (21.0-32.0); CALCIUM 9.2 MG/DL (8.5-10.1); CREATININE 0.82 MG/DL (0.60-1.30)
[2017-07-18 15:18] LABS: INDIRECT BILIRUBIN 0.3 MG/DL (0.0-0.8); TOTAL BILIRUBIN ADULT 0.4 MG/DL (0.2-1.0); TOTAL PROTEIN 6.8 GM/DL (6.4-8.2)
--- NOTE | 2017-07-18 15:52 | HHI.DS ---
Psychiatry Discharge Summary Inpatient Psychiatric care?: Yes Advance Directive: No Mental Health AdvanceDirective: No Health Care Proxy: No Admission Admission Date Jul 09, 2017 at 14:38 Admission Diagnosis: (1) Bipolar disorder, current episode mixed, severe, with psychotic features ICD Code: F31.64 - Bipolar disorder, current episode mixed, severe, with psychotic features Brief History Patient is a 72-year-old white male well-known post multiple prior contacts most initially be hospitalized here 06/02/17 through 06/24/17 under visit [id number] patient is discharged from local longterm. It appears the patient rapidly decompensated there stopping eating becoming questionably compliant with medication pacing wandering becoming more irritable and labile.. Patient seen screened in the ED urine toxicology negative bladder: Negative. At the present time patient seen pacing the [place] on 2500. Appears quite emaciated appear she has lost significant weight since his discharge. He is quite tremulous Wiard akathisia type appearance. Patient denies voices though he acknowledges racing thoughts. He feels the people in his longterm did not give him the proper respect and cooperation. He states she's been compliant with his medication. He does denies suicidality at the present time. He did recognize me she still remains fairly well oriented. Though he is also somewhat loud intrusive and at times ingratiating. At this time patient does meet criteria for inpatient psychiatric treatment assessment stabilization. We' ll continue his medications per the med reconciliation except will place the Respinol an old. We'll get a Tegretol blood level tomorrow morning. We will have the hospitalist consult will is, will have a swallow study done, and a PTE who. Along with a dietary consult. Hopefully spare fairly short stay placement may become quite problematic Tobacco Use In Past 30 Days: No Tobacco Past 30 Days Alcohol Use: Monthly or Less Hospital Course Initial hospital course was uneventful. Patient compliant medications. However over the last few days patient's sodium has dropped drastically to the point refuse initially transferred to 4 E. Today his sodium is dropped to 116. Patient to be discharged on psychiatric unit and admitted to the medical unit for further care and attention. Medications diet treatment per the medical team Results Blood Pressure 131 / 79 Vital Signs Date Time Temp Pulse Resp B/P (MAP) Pulse Ox O2 Delivery O2 Flow Rate FiO2 07/18/17 05:00 97.6 70 20 131/79 (96) 98 Laboratory Tests Test 07/17/17 07:07 07/17/17 14:54 07/18/17 06:20 07/18/17 14:25 Sodium Level 125 MEQ/L (136-145) 121 MEQ/L (136-145) 116 MEQ/L (136-145) Chloride Level 92 MEQ/L (98-107) 88 MEQ/L (98-107) 84 MEQ/L (98-107) Estimat Glomerular Filtration Rate 75 ML/MIN (>89) Serum Osmolality 271 MOSM/KG (275-295) 251 MOSM/KG (275-295) Red Blood Count 3.25 MIL/MM3 (4.50-5.90) Hemoglobin 10.1 GM/DL (13.0-17.0) Hematocrit 27.6 % (39.0-51.0) Mean Corpuscular Hemoglobin Concent 36.5 % (32.0-36.0) Carbamazepine (Tegretol) Level 3.8 MCG/ML (4.0-12.0) Aspartate Amino Transf (AST/SGOT) 55 U/L (15-37) Total Creatine Kinase 1414 U/L (39-308) Creatine Kinase MB 20.9 NG/ML (0.5-3.6) Laboratory Results Test 07/10/17 09:36 Cholesterol Level 151 MG/DL (120-200) HDL Cholesterol 80.0 MG/DL (40.0-60.0) Hemoglobin A1c 6.0 % (4.3-6.0) LDL Cholesterol 62 MG/DL (0-99) Triglycerides Level 47 MG/DL (42-150) Summary of Procedures None done Pending results at discharge: No Medications # of Antipsychotic meds at D/C: 0 Approp Antipsych med options 1 - Minimum of three failed multiple trials of monotherapy. 2 - Documented plan to taper to monotherapy due to previous use of multiple meds OR cross-taper in progress at D/C. 3 - Documentation of augmentation of Clozapine. 4 - Justification other than those listed in allowable values 1-3, document here : Discharge Discharge Date: Jul 18, 2017 Discharge Diagnosis: (1) Bipolar disorder, current episode mixed, severe, with psychotic features Diagnosis: Principal ICD Code: F31.64 - Bipolar disorder, current episode mixed, severe, with psychotic features (2) Hyponatremia Diagnosis: Principal ICD Code: E87.1 - Hypo-osmolality and hyponatremia Pt Condition on Discharge: Guarded Discharge Disposition: Trnsfr to Other Facility Discharge Instructions Diet Instructions: As Tolerated, No Restrictions Activities you can perform: See Additionl Instruction Other Activity Instructions: 30s per medical team Scheduled Appointment: issue be transferred to [facility] inpatient medical service Discharge Time > 30 minutes Mental Status Examination Appearance: Appropriate Consciousness: Alert Orientation: x4 Motor Activity: Other (somewhat shuffling gait) Speech: Pressured Language: Perseveration (mild) Fund of Knowledge: Adequate Attention and Concentration: Other (fair) Memory: Unremarkable Mood: Anxious, Irritable Affect: Other (increased range and intensity) Thought Process & Associations: Logical, Disorganized Thought Content: Ideas of reference Hallucination Type: None Delusion Type: Paranoid Suicidal Ideation: No Suicidal Plan: No Suicidal Intention: No Homicidal Ideation: No Homicidal Plan: No Homicidal Intention: No Insight: Poor Judgment: Poor Discharge/Advance Care Plan Health Problems: (1) Bipolar disorder, current episode mixed, severe, with psychotic features Goals to promote your health * To prevent worsening of your condition and complications * To maintain your health at the optimal level Directions to meet your goals Take your medications as prescribed Follow your dietary instruction Follow activity as directed Keep your appointments as scheduled Take your immunizations and boosters as scheduled If your symptoms worsen call your PCP, if no PCP go to Urgent Care Center or Emergency Room For 24/7 questions related to your inpatient stay or results of tests pending at discharge, please contact Dr. Tyler Batista at Smoking is Dangerous to Your Health. Avoid second hand smoking Tyler Batista MD Jul 18, 2017 15:52
[2017-07-18] MEDS ORDERED: carBAMazepine 200 MG TAB PO SCH (21:00)
[2017-07-18] MEDS ORDERED: QUEtiapine FUMARATE 100 MG TAB PO SCH (21:00)
[2017-07-19] MEDS ORDERED: carBAMazepine 200 MG TAB PO SCH (09:00)
== END 2017-07-18 18:01 | disposition short-term general hospital (02) | DRG 885 ==
LOC: NEPD 19:04 → NEDA 07-09 14:38 → H250 07-09 15:50 → H4EA 07-17 15:10
PROVIDERS: ADMIT Psychiatry & Neurology Psychiatry; ATTEND Psychiatry & Neurology Psychiatry
DX: F31.64 Bipolar disorder, current episode mixed, severe, with psychotic features (principal); R64 Cachexia; G20 Parkinson's disease; E22.2 Syndrome of inappropriate secretion of antidiuretic hormone; F02.80 Dementia in other diseases classified elsewhere, unspecified severity, without behavioral disturbance, psychotic disturbance, mood disturbance, and anxiety; Z68.1 Body mass index [BMI] 19.9 or less, adult; N40.1 Benign prostatic hyperplasia with lower urinary tract symptoms; E03.9 Hypothyroidism, unspecified; R33.8 Other retention of urine; F41.9 Anxiety disorder, unspecified
CPT/HCPCS: 80048; 80053; 80061; 80076; 80156; 82550; 82552; 83036; 83735; 83930; 84100; 84443; 85025; 85027; 96361; 96374; 96375; J1630; J2060; J7030; Q0177

== ENCOUNTER 2017-07-18 18:07 | Inpatient (IN) | payer OTHER, MEDICAID, MEDICARE ==
[2017-07-18 18:00] VITALS: BP 129/76; PULSE 74; RESP 16; TEMP 97.7; O2SAT 95
[~2017-07-18 18:07] MED LIST changes: -LAMI250T PO; +TRAZ50TA12 PO
[2017-07-18] MEDS ORDERED: NALOXONE HCL 0.4 MG/ML AMP IV PUSH PRN (18:15)
[2017-07-18] MEDS ORDERED: BISACODYL 10 MG SUPP RECTAL PRN (18:15)
[2017-07-18] MEDS ORDERED: MAGNESIUM HYDROXIDE SUSP 30 ML CUP PO PRN (18:15)
[2017-07-18] MEDS ORDERED: LACTULOSE SYRUP 20 GM/30 ML CUP PO PRN (18:15)
[2017-07-18] MEDS ORDERED: SENNOSIDES 8.6 MG TAB PO PRN (18:15)
[2017-07-18] MEDS ORDERED: SODIUM CHLORIDE 0.9% FLUSH 10 ML FLUSH IV FLUSH PRN (18:15)
[2017-07-18] MEDS: 2% NS 1000 ML IV SCH ×2 (18:55)
[2017-07-18 20:00] VITALS: BP 166/84; PULSE 93; RESP 24; TEMP 98; O2SAT 96
[2017-07-18] MEDS: HEPARIN SODIUM - SQ 10,000 UNITS/ML VIAL SQ SCH (20:00)
[2017-07-18] MEDS: LORazepam 2 MG/ML VIAL IV PUSH PRN (22:16)
[2017-07-18] MEDS: SODIUM CHLORIDE 0.9% FLUSH 10 ML FLUSH IV FLUSH SCH (22:16)
--- NOTE | 2017-07-18 22:38 | HHI.HP ---
[facility] Unknown Admission Diagnosis Diagnoses: Travel History International Travel<30 Days: No Contact w/Intl Traveler <30 Da: No History of Present Illness 72-year-old male with bipolar disorder, dementia who initially was admitted to psychiatry with nervous breakdown, restlessness. Patient was being managed on the medical psychiatry floor with antipsychotics. He developed hyponatremia, sodium trending from 125 down to 121 this morning, subsequently 116 this afternoon. Patient denies any chest pain or shortness of breath, nausea, vomiting, lightheadedness, dizziness Review of Systems Except as stated in HPI: all other systems reviewed are Neg Past Family Social History Past Medical History Bipolar disorder Dementia History of BPH, however patient denies difficulty urinating. Hypothyroidism Past Surgical History Appendectomy Reported Medications Diphenhydramine 25 mg by mouth daily at bedtime when necessary insomnia Flomax 0.4 mg by mouth daily Carbamazepine 100 mg by mouth twice a day Trazodone 50 mg by mouth daily at bedtime Quetiapine 4000 mg by mouth daily at bedtime Risperdal 2 mg by mouth twice a day Docusate sodium 100 mg by mouth twice a day when necessary Levothyroxine sodium 5 g by mouth daily Allergies: Coded Allergies: divalproex sodium (Unverified Allergy, Severe, 06/02/17) olanzapine (Unverified Allergy, Severe, 06/02/17) methylphenidate (Unverified Allergy, Unknown, 06/02/17) Family History Sister with liver cancer Social History Nonsmoker. Nondrinker. No history of illicit drug use. Physical Exam Vital Signs Vital Signs Date Time Temp Pulse Resp B/P (MAP) Pulse Ox O2 Delivery O2 Flow Rate FiO2 07/18/17 18:00 97.7 74 16 129/76 (93) 95 Physical Exam GENERAL: This is a well-nourished, well-developed patient, appears anxious. SKIN: No rashes, ecchymoses or lesions. Cool and dry. HEAD: Atraumatic. Normocephalic. No temporal or scalp tenderness. EYES: Pupils equal round and reactive. Extraocular motions intact. No scleral icterus. No injection or drainage. ENT: Nose without bleeding, purulent drainage or septal hematoma. Throat without erythema, tonsillar hypertrophy or exudate. Uvula midline. Airway patent. NECK: Trachea midline. No JVD or lymphadenopathy. Supple, nontender, no meningeal signs. CARDIOVASCULAR: Regular rate and rhythm without murmurs, gallops, or rubs. RESPIRATORY: Clear to auscultation. Breath sounds equal bilaterally. No wheezes , rales, or rhonchi. GASTROINTESTINAL: Abdomen soft, non-tender, nondistended. No hepato-splenomegaly , or palpable masses. No guarding. MUSCULOSKELETAL: Extremities without clubbing, cyanosis, or edema. No joint tenderness, effusion, or edema noted. No calf tenderness. Negative Homans sign bilaterally. NEUROLOGICAL: Awake and alert. Cranial nerves II through XII intact. Motor and sensory grossly within normal limits. Five out of 5 muscle strength in all muscle groups. Normal speech. Laboratory Laboratory Tests Test 07/18/17 20:22 Sodium Level 119 Result Diagram: 07/18/172021 Caprini VTE Risk Assessment Caprini VTE Risk Assessment: Mod/High Risk (score >= 2) Caprini Risk Assessment Model Point Value = 1 Point Value = 2 Point Value = 3 Point Value = 5 Age 41-60 Minor surgery BMI > 25 kg/m2 Swollen legs Varicose veins or History of unexplained or recurrent spontaneous Oral contraceptives or hormone replacement Sepsis (< 1 month) Serious lung disease, including pneumonia (< 1 month) Abnormal pulmonary function Acute myocardial infarction Congestive heart failure (< 1 month) History of inflammatory bowel disease Medical patient at bed rest Age 61-74 Arthroscopic surgery Major open surgery (> 45 min) Laparoscopic surgery (> 45 min) Malignancy Confined to bed (> 72 hours) Immobilizing plaster cast Central venous access Age >= 75 History of VTE Family history of VTE Factor V Leiden Prothrombin [id number] Lupus anticoagulant Anticardiolipin antibodies Elevated serum homocysteine Heparin-induced thrombocytopenia Other congenital or acquired thrombophilia Stroke (< 1 month) Elective arthroplasty Hip, pelvis, or leg fracture Acute spinal cord injury (< 1 month) Prophylaxis Regimen Total Risk Factor Score Risk Level Prophylaxis Regimen 0-1 Low Early ambulation 2 Moderate Order ONE of the following: *Sequential Compression Device (SCD) *Heparin 5000 units SQ BID 3-4 Higher Order ONE of the following medications: *Heparin 5000 units SQ TID *Enoxaparin/Lovenox 40 mg SQ daily (WT < 150 kg, CrCl > 30 mL/min) *Enoxaparin/Lovenox 30 mg SQ daily (WT < 150 kg, CrCl > 10-29 mL/min) *Enoxaparin/Lovenox 30 mg SQ BID (WT < 150 kg, CrCl > 30 mL/min) AND/OR *Sequential Compression Device (SCD) 5 or more Highest Order ONE of the following medications: *Heparin 5000 units SQ TID (Preferred with Epidurals) *Enoxaparin/Lovenox 40 mg SQ daily (WT < 150 kg, CrCl > 30 mL/min) *Enoxaparin/Lovenox 30 mg SQ daily (WT < 150 kg, CrCl > 10-29 mL/min) *Enoxaparin/Lovenox 30 mg SQ BID (WT < 150 kg, CrCl > 30 mL/min) AND *Sequential Compression Device (SCD) Assessment and Plan Assessment and Plan //Hyponatremia Due to rapid decline from 125-116 today, patient was transferred to [facility] for close monitoring. Every 4 hours neuro checks. Have ordered infusion of 2% normal saline at 30 mL per hour, with Q6 hour sodium checks. Restraints and Ativan as needed for agitation. Hold all antipsychotics. //Bipolar disorder = Hold all antipsychotics secondary to hyponatremia. Ativan when necessary for agitation. //Hypothyroidism. Chronic. Recent TSH within normal limits. //BPH. Patient denied issues with retention. Hold this medication for now. Continue to monitor urine output. Discussed Condition With patient, nurse, ED physician. Discussed with psychiatry today. Physician Certification 2 Midnight Certification Type: Admission for Inpatient Services Order for Inpatient Services The services are ordered in accordance with Medicare regulations or non- Medicare payer requirements, as applicable. In the case of services not specified as inpatient-only, they are appropriately provided as inpatient services in accordance with the 2-midnight benchmark. Estimated LOS (days): 2 days is the estimated time the patient will need to remain in the hospital, assuming treatment plan goals are met and no additional complications. Post-Hospital Plan: Home Max Albert MD Jul 18, 2017 22:38
[2017-07-18] MEDS ORDERED: CHLORHEXIDINE GLUCONATE 2 % 1 PACK (2 CLOTHS)(extra cloths) TOPICAL PRN (22:45)
[2017-07-19] VITALS (12 sets, daily range): BP systolic 127–174; BP diastolic 71–90; PULSE 63–90; RESP 12–22; TEMP 97.5–98.9; O2SAT 20–97
[2017-07-19 03:08] LABS: AUTOMATED NEUTROPHIL # 8.2 TH/MM3 (1.8-7.7); BASOPHIL % 0.2 % (0.0-2.0); EOSINOPHIL % 0.1 % (0.0-4.0); HEMATOCRIT 32.3 % (39.0-51.0); HEMOGLOBIN 11.3 GM/DL (13.0-17.0); LYMPH % 7.4 % (9.0-44.0); LYMPHOCYTE # 0.7 TH/MM3 (1.0-4.8); MEAN CELL VOLUME 84.7 FL (80.0-100.0); MEAN CORPUSCULAR HEMOGLOBIN 29.5 PG (27.0-34.0); MEAN CORPUSCULAR HGB CONC 34.9 % (32.0-36.0); MEAN PLATELET VOLUME 7.1 FL (7.0-11.0); MONO % 9.1 % (0.0-8.0); MONOCYTE # 0.9 TH/MM3 (0-0.9); NEUT % 83.2 % (16.0-70.0); PLATELET COUNT 329 TH/MM3 (150-450); RED BLOOD COUNT 3.81 MIL/MM3 (4.50-5.90); WHITE BLOOD COUNT 9.8 TH/MM3 (4.0-11.0)
[2017-07-19 03:26] LABS: ALBUMIN 3.8 GM/DL (3.4-5.0); ALKALINE PHOSPHATASE 111 U/L (45-117); ALT (GPT) 50 U/L (12-78); AST (GOT) 77 U/L (15-37); BICARBONATE 22.7 MEQ/L (21.0-32.0); BLOOD UREA NITROGEN 10 MG/DL (7-18); CALCIUM 8.5 MG/DL (8.5-10.1); CHLORIDE 85 MEQ/L (98-107); GLOMERULAR FILTRATION RATE 95 ML/MIN (>89); GLUCOSE,RANDOM 90 MG/DL (74-106); TOTAL BILIRUBIN ADULT 0.7 MG/DL (0.2-1.0); TOTAL PROTEIN 6.6 GM/DL (6.4-8.2)
[2017-07-19 03:28] LABS: SODIUM (NA) 117 MEQ/L (136-145)
[2017-07-19] MEDS: LORazepam 2 MG/ML VIAL IV PUSH PRN ×2 (03:59→22:59)
[2017-07-19] MEDS: LEVOTHYROXINE SODIUM 75 MCG TAB PO SCH (06:00)
[2017-07-19] MEDS ORDERED: PROPOFOL 500 MG/50 ML INJ 50 ML ONE (07:40)
[2017-07-19] MEDS: SODIUM CHLORIDE 0.9% FLUSH 10 ML FLUSH IV FLUSH SCH ×2 (09:00→19:51)
[2017-07-19] MEDS: HEPARIN SODIUM - SQ 10,000 UNITS/ML VIAL SQ SCH ×2 (09:22→19:50)
[2017-07-19] MEDS ORDERED: HALOPERIDOL LACTATE 5 MG/ML AMP IM PRN (13:00)
--- NOTE | 2017-07-19 13:03 | HHI.PYPN ---
Subjective Remarks Patient was seen today for psychiatric reevaluation. Documentation worse reviewed. Vital signs and labs reviewed. On psychiatric evaluation the patient is found restrained in 4 points. Really agitated, poorly cooperative, disorganized and disoriented. Patient is perseverating in asking to be loose. As per nursing charge the patient has been very restless, agitated, disorganized. He had to be restrained in order to protect his IV access. He psychotropics were hold due to severe hyponatremia. Mental Status Examination Appearance: Dirty, Disheveled Consciousness: Obtunded Speech: Incoherent Language: Perseveration Fund of Knowledge: Inadequate Memory: Impaired Mood: Angry, Irritable Affect: Irritable Thought Process & Associations: Loose associations Thought Content: Racing thoughts Hallucination Type: None Delusion Type: None Insight: Poor Judgment: Poor Results Labs Test 07/18/17 20:22 07/19/17 02:40 07/19/17 09:30 07/19/17 10:50 Sodium Level 119 MEQ/L 117 MEQ/L 118 MEQ/L White Blood Count 9.8 TH/MM3 Red Blood Count 3.81 MIL/MM3 Hemoglobin 11.3 GM/DL Hematocrit 32.3 % Mean Corpuscular Volume 84.7 FL Mean Corpuscular Hemoglobin 29.5 PG Mean Corpuscular Hemoglobin Concent 34.9 % Red Cell Distribution Width 13.0 % Platelet Count 329 TH/MM3 Mean Platelet Volume 7.1 FL Neutrophils (%) (Auto) 83.2 % Lymphocytes (%) (Auto) 7.4 % Monocytes (%) (Auto) 9.1 % Eosinophils (%) (Auto) 0.1 % Basophils (%) (Auto) 0.2 % Neutrophils # (Auto) 8.2 TH/MM3 Lymphocytes # (Auto) 0.7 TH/MM3 Monocytes # (Auto) 0.9 TH/MM3 Eosinophils # (Auto) 0.0 TH/MM3 Basophils # (Auto) 0.0 TH/MM3 CBC Comment DIFF FINAL Differential Comment Blood Urea Nitrogen 10 MG/DL Creatinine 0.80 MG/DL Random Glucose 90 MG/DL Total Protein 6.6 GM/DL Albumin 3.8 GM/DL Calcium Level 8.5 MG/DL Alkaline Phosphatase 111 U/L Aspartate Amino Transf (AST/SGOT) 77 U/L Alanine Aminotransferase (ALT/SGPT) 50 U/L Total Bilirubin 0.7 MG/DL Potassium Level 4.1 MEQ/L Chloride Level 85 MEQ/L Carbon Dioxide Level 22.7 MEQ/L Anion Gap 9 MEQ/L Estimat Glomerular Filtration Rate 95 ML/MIN Nasal Screen MRSA (PCR) MRSA NOT DETECTED Vitals/IOs Vital Signs Date Time Temp Pulse Resp B/P (MAP) Pulse Ox O2 Delivery O2 Flow Rate FiO2 07/19/17 04:00 97.6 90 20 151/81 (104) 97 Intake and Output 07/19/17 07/19/17 07/20/17 08:00 16:00 00:00 Output Total 1550 ml Balance -1550 ml Assessment & Plan Problem List: (1) Bipolar disorder, current episode mixed, severe, with psychotic features ICD Codes: F31.64 - Bipolar disorder, current episode mixed, severe, with psychotic features Assessment & Plan: At the moment of this evaluation the patient is delirious, disorganized, unable to participate and provide any meaningful information in the reevaluation. She is restrained in 4 points due to his level of agitation and disorganization. Psychotropics medication are hold due to severe hyponatremia. The patient essentially is well-known denies side effects. Continue to hold psychotropics until patient is metabolically stable. Will order Haldol 2 mg IM every 6 hours when necessary aggressive behavior as severe agitation. We'll follow-up. Assessment & Plan Estimated LOS: days Justification for Cont. Inpt. Patient will be transferred back to psychiatry once medically stable. Aidan Ohara MD Jul 19, 2017 13:03
--- NOTE | 2017-07-19 14:04 | PD.CONS ---
HPI Service Nephrology Consult Requested By Reason for Consult Hyponatremia Primary Care Physician Unknown History of Present Illness This is a 72 y/o male who was transferred from inpatient psychiatry unit for severe hyponatremia. His serum sodium was 119 yesterday, is 117 most recently. Looking back through 2017 he has had chronic hyponatremia, but not this severe. Today he is seen in [facility] [facility], is on 2% saline infusion, and is currently restrained. He appears dry, he reports he normally drinks "a lot" of water, remembers his sodium level being low but not anything else related to diagnosis or treatment. He is on Tegretol daily. He is a full code, we were consulted to assist with management. (Hortencia Saldivar) Review of Systems ROS Limitations: Clinical Condition Constitutional: DENIES: Fatigue (Hortencia Saldivar) Past Family Social History Allergies: Coded Allergies: divalproex sodium (Unverified Allergy, Severe, 06/02/17) olanzapine (Unverified Allergy, Severe, 06/02/17) methylphenidate (Unverified Allergy, Unknown, 06/02/17) Past Medical History Bipolar disorder Dementia History of BPH Hypothyroidism Hx hyponatremia Past Surgical History Appendectomy Reported Medications Diphenhydramine 25 mg by mouth daily at bedtime when necessary insomnia Flomax 0.4 mg by mouth daily Carbamazepine 100 mg by mouth twice a day Trazodone 50 mg by mouth daily at bedtime Quetiapine 4000 mg by mouth daily at bedtime Risperdal 2 mg by mouth twice a day Docusate sodium 100 mg by mouth twice a day when necessary Levothyroxine sodium 5 g by mouth daily Active Ordered Medications Current Medications Medications (Trade) Dose Ordered Sig/Kerry Route Start Time Stop Time Status Last Admin (NS Flush) 2 ml UNSCH PRN IV FLUSH 07/18/17 18:15 (NS Flush) 2 ml BID IV FLUSH 07/18/17 21:00 07/19/17 09:00 (Heparin Inj) 5,000 units Q12H SQ 07/18/17 20:00 07/19/17 09:22 (Narcan Inj) 0.4 mg UNSCH PRN IV PUSH 07/18/17 18:15 (Milk Of Magnesia Liq) 30 ml Q12H PRN PO 07/18/17 18:15 (Senokot) 17.2 mg Q12H PRN PO 07/18/17 18:15 (Dulcolax Supp) 10 mg DAILY PRN RECTAL 07/18/17 18:15 (Lactulose Liq) 30 ml DAILY PRN PO 07/18/17 18:15 (Synthroid) 75 mcg DAILY@0600 PO 07/19/17 06:00 (Ativan Inj) 1 mg Q4H PRN IV PUSH 07/18/17 18:15 07/19/17 03:59 Sodium Chloride 188 meq/Sodium Chloride 1,000 ml @ 30 mls/hr Q24H IV 07/18/17 19:00 07/18/17 18:55 Miscellaneous Information Patient in critical care unit? Ass... [id number] .XX 07/18/17 22:45 (Chlorhexidine 2% Cloth) 3 pack DAILY@04 TOPICAL 07/19/17 04:00 07/23/17 04:01 (Chlorhexidine 2% Cloth) 3 pack UNSCH PRN TOPICAL 07/18/17 22:45 07/23/17 22:30 (Haldol Inj) 2 mg Q6H PRN IM 07/19/17 13:00 Family History Non contributory Social History Unclear his normal living situation Denies tobacco abuse No ETOH (Hortencia Saldivar) Physical Exam Vital Signs Vital Signs Date Time Temp Pulse Resp B/P (MAP) Pulse Ox O2 Delivery O2 Flow Rate FiO2 07/19/17 04:00 97.6 90 20 151/81 (104) 97 07/19/17 00:00 97.5 89 20 150/72 (98) 97 07/18/17 20:00 98.0 93 24 166/84 (111) 96 07/18/17 18:00 97.7 74 16 129/76 (93) 95 Physical Exam Disheveled Elderly male Dry mucous membranes Restrained x 4 extremities S1/S2, RRR, no murmurs Abd flat No extremity edema Laboratory Laboratory Tests Test 07/18/17 20:22 07/19/17 02:40 07/19/17 09:30 07/19/17 10:50 Sodium Level 119 117 118 White Blood Count 9.8 Red Blood Count 3.81 Hemoglobin 11.3 Hematocrit 32.3 Mean Corpuscular Volume 84.7 Mean Corpuscular Hemoglobin 29.5 Mean Corpuscular Hemoglobin Concent 34.9 Red Cell Distribution Width 13.0 Platelet Count 329 Mean Platelet Volume 7.1 Neutrophils (%) (Auto) 83.2 Lymphocytes (%) (Auto) 7.4 Monocytes (%) (Auto) 9.1 Eosinophils (%) (Auto) 0.1 Basophils (%) (Auto) 0.2 Neutrophils # (Auto) 8.2 Lymphocytes # (Auto) 0.7 Monocytes # (Auto) 0.9 Eosinophils # (Auto) 0.0 Basophils # (Auto) 0.0 CBC Comment DIFF FINAL Differential Comment Blood Urea Nitrogen 10 Creatinine 0.80 Random Glucose 90 Total Protein 6.6 Albumin 3.8 Calcium Level 8.5 Alkaline Phosphatase 111 Aspartate Amino Transf (AST/SGOT) 77 Alanine Aminotransferase (ALT/SGPT) 50 Total Bilirubin 0.7 Potassium Level 4.1 Chloride Level 85 Carbon Dioxide Level 22.7 Anion Gap 9 Estimat Glomerular Filtration Rate 95 Nasal Screen MRSA (PCR) MRSA NOT DETECTED Serum Osmolality 249 (Hortencia Saldivar) Result Diagram: 07/19/17 0240 07/19/17 1050 Assessment and Plan Problem List: (1) Hyponatremia ICD Codes: E87.1 - Hypo-osmolality and hyponatremia Plan: Chronic but acutely worse He was taking Tegretol, which can cause SIADH, unclear when his last dose was Obtain serum and urine osmolality, urine sodium level, and uric acid to complete the work up Serial sodium levels, avoid overcorrection, no more than 6-8 dL in 24 hrs If serum sodium level is over 120, stop 2% infusion May need fluid restriction, cannot rule out psychogenic polydipsia (2) Bipolar disorder, current episode mixed, severe, with psychotic features ICD Codes: F31.64 - Bipolar disorder, current episode mixed, severe, with psychotic features Plan: Psychiatry is following Currently restrained. (Hortencia Saldivar) Assessment and Plan patient was seen and examined. Etiology of hyponatremia needs to be determined: I have ordered urine osmolality, urine Na and serum uric acid. Could be psychogenic polydipsia or SIADH ( due to Tegretol). Currently on 2% saline. Avoid increasing serum Na by more than 6-8 meQ/day. Frequently monitor serum Na. (Sherman Mix MD) Hortencia Saldivar Jul 19, 2017 14:04 Sherman Mix MD Jul 19, 2017 14:38
--- NOTE | 2017-07-19 15:34 | HHI.PR ---
Subjective Remarks Patient seen today around noon. Disorganized and uncooperative. He denies any pain and denies any chest pain Objective Vital Signs Date Time Temp Pulse Resp B/P (MAP) Pulse Ox O2 Delivery O2 Flow Rate FiO2 07/19/17 12:00 97.9 90 20 174/87 (116) 20 07/19/17 08:00 98.0 85 22 148/90 (109) 97 07/19/17 04:00 97.6 90 20 151/81 (104) 97 07/19/17 00:00 97.5 89 20 150/72 (98) 97 07/18/17 20:00 98.0 93 24 166/84 (111) 96 07/18/17 18:00 97.7 74 16 129/76 (93) 95 I/O 07/18/17 07/18/17 07/18/17 07/19/17 07/19/17 07/19/17 07:00 15:00 23:00 07:00 15:00 23:00 Output Total 1550 ml Balance -1550 ml Output Urine Total 1550 ml Result Diagram: 07/19/17 0240 07/19/17 1416 Objective Remarks GENERAL: Sitting up in bed. Appears comfortable. Very disorganized speech, appears generally confused. SKIN: Warm and dry. HEAD: Normocephalic. EYES: No scleral icterus. No injection or drainage. NECK: Supple, trachea midline. No JVD. CARDIOVASCULAR: Regular rate and rhythm without murmurs, gallops, or rubs. RESPIRATORY: Breath sounds equal bilaterally. No accessory muscle use. GASTROINTESTINAL: Abdomen soft, non-tender, nondistended. MUSCULOSKELETAL: No cyanosis, or edema. BACK: Nontender without obvious deformity. No CVA tenderness. A/P Assessment and Plan /Acute euvolemic hypotonic Hyponatremia Due to rapid decline from 125-116 today, patient was transferred to [facility] close monitoring. Every 4 hours neuro checks. Have ordered infusion of 2% normal saline at 30 mL per hour, with Q6 hour sodium checks. Restraints and Ativan as needed for agitation. Hold all antipsychotics. = 07/19. Sodium up to 120 today. Continue IV sodium at 50 miles per hour. Continue sodium checks. Nephrology consulted and following. Appreciate assistance. //Bipolar disorder = Hold all antipsychotics secondary to hyponatremia. Ativan when necessary for agitation. = Psychiatry following. Haldol IM when necessary agitation. Try to avoid necrotic center possible. This will be a difficult challenge patient with severe bipolar disorder. //CK up to 1400 in medical psych on 07/18. 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 Follow-up here pending. Continue IV fluids above. //Hypothyroidism. Chronic. Recent TSH within normal limits. //BPH. Patient denied issues with retention. Hold this medication for now. Continue to monitor urine output. = Patient with good output by condom catheter. Discharge Planning Pending improvement and stability in sodium, patient can be discharged back to medical psychiatry floor. Max Albert MD Jul 19, 2017 15:34
[2017-07-19] MEDS: 2% NS 1000 ML IV SCH ×2 (18:15)
[2017-07-20] VITALS (12 sets, daily range): BP systolic 109–149; BP diastolic 61–87; PULSE 57–83; RESP 12–19; TEMP 97.6–98.8; O2SAT 99–100
[2017-07-20] MEDS: 2% NS 1000 ML IV SCH ×2 (00:30)
[2017-07-20] MEDS: CHLORHEXIDINE GLUCONATE 2 % 1 PACK (2 CLOTHS)(taper/protocol) TOPICAL SCH ×2 (04:00→22:00)
[2017-07-20] MEDS: LEVOTHYROXINE SODIUM 75 MCG TAB PO SCH (05:35)
[2017-07-20] MEDS: LORazepam 2 MG/ML VIAL IV PUSH PRN ×3 (05:35→23:31)
--- NOTE | 2017-07-20 09:52 | HHI.PYPN ---
Subjective Remarks Patient seen for reevaluation, he is poorly cooperative, sedated, restrained in 4 points due to agitation. He says he is ok "but I hate to be tied up". He denies SI/HI/AH/VH. Partially oriented. Frequent agitation and restlessness. Review of Systems Psychiatric: COMPLAINS OF: Agitation Mental Status Examination Appearance: Dirty, Disheveled Consciousness: Obtunded Orientation: Person, Place Speech: Incoherent Language: Perseveration Fund of Knowledge: Inadequate Memory: Impaired Mood: Angry, Irritable Affect: Irritable Thought Process & Associations: Loose associations Thought Content: Racing thoughts Hallucination Type: None Delusion Type: None Suicidal Ideation: No Suicidal Plan: No Suicidal Intention: No Homicidal Ideation: No Homicidal Plan: No Insight: Fair Judgment: Impulsive Results Labs Test 07/19/17 10:50 07/19/17 14:16 07/19/17 16:35 07/19/17 22:15 Sodium Level 118 MEQ/L 120 MEQ/L 120 MEQ/L 122 MEQ/L Serum Osmolality 249 MOSM/KG Uric Acid 3.8 MG/DL Total Creatine Kinase 2589 U/L Creatine Kinase MB 28.8 NG/ML Creatine Kinase MB % 1.1 % Test 07/20/17 02:55 07/20/17 04:40 Sodium Level 123 MEQ/L 123 MEQ/L Vitals/IOs Vital Signs Date Time Temp Pulse Resp B/P (MAP) Pulse Ox O2 Delivery O2 Flow Rate FiO2 07/20/17 06:00 73 07/20/17 04:00 98.7 12 124/77 (93) 07/19/17 12:00 20 Intake and Output 07/20/17 07/20/17 07/21/17 08:00 16:00 00:00 Intake Total 329 ml Output Total 800 ml Balance -471 ml Assessment & Plan Problem List: (1) Bipolar disorder, current episode mixed, severe, with psychotic features ICD Codes: F31.64 - Bipolar disorder, current episode mixed, severe, with psychotic features Assessment & Plan: Due to concern with potential NMS will hold haldol. Agitation and behavioral dysregulation to be treated with Ativan 1 mg im/iv q/6 PRN agitation and aggressiveness. Potential NMS, increased CPK,AMS, however not autonomic instability, no stiffness present. will hold antipsychotics. Assessment & Plan Estimated LOS: days Justification for Cont. Inpt. To transfer to back to psychiatry once stable. Aidan Ohara MD Jul 20, 2017 09:52
[2017-07-20] MEDS: HEPARIN SODIUM - SQ 10,000 UNITS/ML VIAL SQ SCH ×2 (10:22→20:24)
[2017-07-20] MEDS: SODIUM CHLORIDE 0.9% FLUSH 10 ML FLUSH IV FLUSH SCH ×2 (10:22→20:24)
--- NOTE | 2017-07-20 12:03 | HHI.NPPN ---
Subjective Interval History Slightly more alert. Not in distress. Urine studies not performed. (Hortencia Saldivar) Objective Data Data Vital Signs Date Time Temp Pulse Resp B/P (MAP) Pulse Ox O2 Delivery O2 Flow Rate FiO2 07/20/17 06:00 73 07/20/17 04:00 98.7 65 12 124/77 (93) 07/20/17 04:00 65 07/20/17 02:00 65 07/20/17 00:00 98.8 78 19 126/80 (95) 07/20/17 00:00 78 07/19/17 22:00 74 07/19/17 20:00 71 07/19/17 20:00 98.9 71 12 129/73 (91) 07/19/17 18:00 69 13 127/71 (89) 07/19/17 18:00 69 07/19/17 17:00 84 07/19/17 17:00 84 20 158/85 (109) 07/19/17 16:00 80 07/19/17 16:00 98.0 80 15 140/81 (100) 07/19/17 15:00 90 20 162/84 (110) 07/19/17 15:00 90 07/19/17 14:00 72 (Hortencia Saldivar) -: 07/19/17 0240 07/20/17 1034 Physical Exam General Appearance: Well Developed, Comfortable, Malnourished (Hortencia Saldivar) Throat Throat Remarks dry mucous membranes (Hortencia Saldivar) Pulmonary Resp Exam: Clear Bilaterally, Breath Sounds Equal (Hortencia Saldivar) Cardiology CV Exam: Regular, Normal Sinus Rhythm (Hortencia Saldivar) Gastrointestinal/Abdomen GI Exam: Soft, Non-Tender (Hortencia Saldivar) Musculoskeletal MS Exam: Joints Intact, Normal Tone, Unable to Ambulate (Hortencia Saldivar) Integumentary Skin Exam: Warm, Dry (Hortencia Saldivar) Extremeties Extremities Exam: No Edema, Pedal Pulses Palpable (Hortencia Saldivar) Neurologic Neuro Exam: Alert, Awake (Hortencia Saldivar) Assessment/Plan Discussed Condition With: Patient Electrolyte Assessment: Hyponatremia Problem List: (1) Hyponatremia ICD Codes: E87.1 - Hypo-osmolality and hyponatremia Plan: Chronic but acutely worse He was taking Tegretol, which can cause SIADH Other etiologies under investigation. We have asked the nurse to send the urine studies Stop 2% saline Serial sodium measurements. May need fluid restriction, cannot rule out psychogenic polydipsia (2) Bipolar disorder, current episode mixed, severe, with psychotic features ICD Codes: F31.64 - Bipolar disorder, current episode mixed, severe, with psychotic features Plan: Psychiatry is following Currently restrained. (Hortencia Saldivar) Plan patient was seen and examined. High urine osmolality is consistent with SIADH. This is likely secondary to Carbamazepine. Needs fluid restriction. 2% saline can be stopped. (Sherman Mix MD) Hortencia Saldivar Jul 20, 2017 12:03 Sherman Mix MD Jul 20, 2017 17:58
[2017-07-20 12:52] LABS: SODIUM,RANDOM URINE 84 MEQ/L
[2017-07-20 13:05] LABS: OSMOLALITY,URINE 432 MOSM/KG (300-1300)
[2017-07-20] MEDS: SODIUM CHLORIDE 23.4% INJ 154 MEQ in DEXTROSE 10% INJ 1,000 ML IV SCH (15:45)
--- NOTE | 2017-07-20 18:56 | HHI.PR ---
Subjective Remarks Patient seen today around 2 PM. This is feeling all right. Denies any chest pain or shortness breath. Denies any nausea or vomiting. Says he is very thirsty. Objective Vital Signs Date Time Temp Pulse Resp B/P (MAP) Pulse Ox O2 Delivery O2 Flow Rate FiO2 07/20/17 18:00 60 07/20/17 18:00 60 07/20/17 16:00 68 07/20/17 16:00 98.1 68 14 149/86 (107) 100 07/20/17 14:00 63 07/20/17 12:00 83 07/20/17 12:00 98.4 60 14 142/69 (93) 99 07/20/17 10:00 64 07/20/17 08:00 57 07/20/17 08:00 98.1 57 14 109/61 (77) 07/20/17 06:00 73 07/20/17 04:00 98.7 65 12 124/77 (93) 07/20/17 04:00 65 07/20/17 02:00 65 07/20/17 00:00 98.8 78 19 126/80 (95) 07/20/17 00:00 78 07/19/17 22:00 74 07/19/17 20:00 71 07/19/17 20:00 98.9 71 12 129/73 (91) I/O 07/19/17 07/19/17 07/19/17 07/20/17 07/20/17 07/20/17 07:00 15:00 23:00 07:00 15:00 23:00 Intake Total 329 ml 300 ml Output Total 1550 ml 800 ml 900 ml Balance -1550 ml -471 ml -600 ml Intake Oral 300 ml IV Total 329 ml Output Urine Total 1550 ml 800 ml 900 ml # Bowel Movements 1 0 Result Diagram: 07/19/17 0240 07/20/17 1436 Objective Remarks GENERAL: Sitting up in bed. Appears comfortable. Patient more calm today. Still with disorganized speech. SKIN: Warm and dry. HEAD: Normocephalic. EYES: No scleral icterus. No injection or drainage. NECK: Supple, trachea midline. No JVD. CARDIOVASCULAR: Regular rate and rhythm without murmurs, gallops, or rubs. RESPIRATORY: Breath sounds equal bilaterally. No accessory muscle use. GASTROINTESTINAL: Abdomen soft, non-tender, nondistended. MUSCULOSKELETAL: No cyanosis, or edema. BACK: Nontender without obvious deformity. No CVA tenderness. A/P Assessment and Plan //Acute euvolemic hypotonic Hyponatremia Due to rapid decline from 125-116 today, patient was transferred to [facility] for close monitoring. Every 4 hours neuro checks. Have ordered infusion of 2% normal saline at 30 mL per hour, with Q6 hour sodium checks. Restraints and Ativan as needed for agitation. Hold all antipsychotics. = 07/19. Sodium up to 120 today. Continue IV sodium at 50 miles per hour. Continue sodium checks. Nephrology consulted and following. Appreciate assistance. = 07/20. Sodium up to 126. We'll start diet with fluid restrictions. Start deep 10 normal saline low rate to prevent catabolic state. Appreciate nephrology assistance. //Bipolar disorder = Hold all antipsychotics secondary to hyponatremia. Ativan when necessary for agitation. = Psychiatry following. Haldol IM when necessary agitation. Try to avoid necrotic center possible. This will be a difficult challenge patient with severe bipolar disorder. //CK up to 1400 in medical psych on 07/18. 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 Follow-up here pending. Continue IV fluids above. 07/20. Difficult situation which required fluid restriction, as well as IV fluids. Recheck CK today. Continue IV fluids. //Hypothyroidism. Chronic. Recent TSH within normal limits. //BPH. Patient denied issues with retention. Hold this medication for now. Continue to monitor urine output. = Patient with good output by condom catheter. Discharge Planning Pending improvement and stability in sodium, patient can be discharged back to medical psychiatry floor. Max Albert MD Jul 20, 2017 18:56
[2017-07-20 22:54] LABS: ALBUMIN 3.5 GM/DL (3.4-5.0); BICARBONATE 17.6 MEQ/L (21.0-32.0); CREATININE 0.82 MG/DL (0.60-1.30); PHOSPHORUS 2.2 MG/DL (2.5-4.9)
[2017-07-21] VITALS (13 sets, daily range): BP systolic 125–174; BP diastolic 74–101; PULSE 57–89; RESP 14–26; TEMP 97.8–98.7; O2SAT 98–100
[2017-07-21] MEDS: LEVOTHYROXINE SODIUM 75 MCG TAB PO SCH (05:11)
[2017-07-21] MEDS: HEPARIN SODIUM - SQ 10,000 UNITS/ML VIAL SQ SCH ×2 (08:00→20:12)
[2017-07-21] MEDS ORDERED: SODIUM BICARBONATE 650 MG TAB PO ONE (08:00)
--- NOTE | 2017-07-21 12:00 | HHI.NPPN ---
Subjective Interval History He remains restrained, answers questions. Labs from today are not available. (Hortencia Saldivar) Objective Data Data Vital Signs Date Time Temp Pulse Resp B/P (MAP) Pulse Ox O2 Delivery O2 Flow Rate FiO2 07/21/17 06:00 76 07/21/17 04:00 69 07/21/17 04:00 98.0 69 16 135/74 (94) 99 07/21/17 02:00 67 07/21/17 00:00 97.8 59 15 132/76 (94) 99 07/21/17 00:00 59 07/20/17 22:00 74 07/20/17 20:00 97.6 70 14 142/87 (105) 100 07/20/17 20:00 70 07/20/17 18:00 60 07/20/17 18:00 60 07/20/17 16:00 68 07/20/17 16:00 98.1 68 14 149/86 (107) 100 07/20/17 14:00 63 07/20/17 12:00 83 07/20/17 12:00 98.4 60 14 142/69 (93) 99 (Hortencia Saldivar) -: 07/19/17 0240 07/20/17 1948 Physical Exam General Appearance: Well Developed, Comfortable, Malnourished (Hortencia Saldivar) Throat Throat Remarks dry mucous membranes (Hortencia Saldivar) Pulmonary Resp Exam: Clear Bilaterally, Breath Sounds Equal (Hortencia Saldivar) Cardiology CV Exam: Regular, Normal Sinus Rhythm (Hortencia Saldivar) Gastrointestinal/Abdomen GI Exam: Soft, Non-Tender (Hortencia Saldivar) Musculoskeletal MS Exam: Joints Intact, Normal Tone, Unable to Ambulate (Hortencia Saldivar) Integumentary Skin Exam: Warm, Dry (Hortencia Saldivar) Extremeties Extremities Exam: No Edema, Pedal Pulses Palpable (Hortencia Saldivar) Neurologic Neuro Exam: Alert, Awake (Hortencia Saldivar) Assessment/Plan Discussed Condition With: Patient Electrolyte Assessment: Hyponatremia Problem List: (1) Hyponatremia ICD Codes: E87.1 - Hypo-osmolality and hyponatremia Plan: Chronic but acutely worse Urine sodium is not low, suggesting SIADH from Tegretol Off hypertonic saline Repeat labs Consider tolvaptan, in that case fluid restriction is not required. (2) Bipolar disorder, current episode mixed, severe, with psychotic features ICD Codes: F31.64 - Bipolar disorder, current episode mixed, severe, with psychotic features Plan: Psychiatry is following Currently restrained. (Hortencia Saldivar) Problem List: (1) Hyponatremia ICD Codes: E87.1 - Hypo-osmolality and hyponatremia Plan: Chronic but acutely worse Urine sodium is not low, suggesting SIADH from Tegretol Off hypertonic saline Repeat labs Consider tolvaptan, in that case fluid restriction is not required. (2) Bipolar disorder, current episode mixed, severe, with psychotic features ICD Codes: F31.64 - Bipolar disorder, current episode mixed, severe, with psychotic features Plan: Psychiatry is following Currently restrained. Plan patient was seen and examined. Serum Na is 128. No need for Tolvaptan. (Sherman Mix MD) Hortencia Saldivar Jul 21, 2017 12:00 Sherman Mix MD Jul 21, 2017 16:47
[2017-07-21] MEDS: SODIUM CHLORIDE 23.4% INJ 154 MEQ in DEXTROSE 10% INJ 1,000 ML IV SCH (12:04)
[2017-07-21] MEDS: SODIUM CHLORIDE 0.9% FLUSH 10 ML FLUSH IV FLUSH SCH ×2 (12:18→20:12)
[2017-07-21] MEDS: LORazepam 2 MG/ML VIAL IV PUSH PRN ×2 (12:18→22:54)
[2017-07-21 13:00] LABS: BICARBONATE 26.6 MEQ/L (21.0-32.0); CALCIUM 9.3 MG/DL (8.5-10.1); CREATININE 0.75 MG/DL (0.60-1.30)
--- NOTE | 2017-07-21 18:55 | HHI.PR ---
Subjective Remarks Patient seen today around 1 PM. Sleeping, wakes up for exam. He denies any pain. Discussed with nurse. Patient did have fall, on his backside this morning. Did not strike head. Able to support weight walking back to bed. Patient with poor appetite. Encourage appetite. Objective Vital Signs Date Time Temp Pulse Resp B/P (MAP) Pulse Ox O2 Delivery O2 Flow Rate FiO2 07/21/17 16:00 88 07/21/17 14:00 79 07/21/17 12:00 75 07/21/17 12:00 97.8 80 20 158/82 (107) 99 07/21/17 10:00 75 07/21/17 08:00 89 07/21/17 08:00 98.7 87 14 125/80 (95) 99 07/21/17 06:00 76 07/21/17 04:00 69 07/21/17 04:00 98.0 69 16 135/74 (94) 99 07/21/17 02:00 67 07/21/17 00:00 97.8 59 15 132/76 (94) 99 07/21/17 00:00 59 07/20/17 22:00 74 07/20/17 20:00 97.6 70 14 142/87 (105) 100 07/20/17 20:00 70 I/O 07/20/17 07/20/17 07/20/17 07/21/17 07/21/17 07/21/17 07:00 15:00 23:00 07:00 15:00 23:00 Intake Total 329 ml 300 ml 120 ml Output Total 800 ml 900 ml 500 ml Balance -471 ml -600 ml -380 ml Intake Oral 300 ml 120 ml IV Total 329 ml Output Urine Total 800 ml 900 ml 500 ml # Bowel Movements 1 0 2 Result Diagram: 07/19/17 0240 07/21/17 1146 Objective Remarks GENERAL: Sitting up in bed. Appears comfortable. calm. Still with disorganized speech. SKIN: Warm and dry. HEAD: Normocephalic. EYES: No scleral icterus. No injection or drainage. NECK: Supple, trachea midline. No JVD. CARDIOVASCULAR: Regular rate and rhythm without murmurs, gallops, or rubs. RESPIRATORY: Breath sounds equal bilaterally. No accessory muscle use. GASTROINTESTINAL: Abdomen soft, non-tender, nondistended. MUSCULOSKELETAL: No cyanosis, or edema. BACK: Nontender without obvious deformity. No CVA tenderness. A/P Assessment and Plan //Acute euvolemic hypotonic Hyponatremia Due to rapid decline from 125-116 today, patient was transferred to [facility] for close monitoring. Every 4 hours neuro checks. Have ordered infusion of 2% normal saline at 30 mL per hour, with Q6 hour sodium checks. Restraints and Ativan as needed for agitation. Hold all antipsychotics. = 07/19. Sodium up to 120 today. Continue IV sodium at 50 miles per hour. Continue sodium checks. Nephrology consulted and following. Appreciate assistance. = 07/20. Sodium up to 126. We'll start diet with fluid restrictions. Start deep 10 normal saline low rate to prevent catabolic state. Appreciate nephrology assistance. = 07/21. Sodium up to 128. Continues slow improvement on IV fluids, oral diet. Hopefully can go back to med psych in the next couple days. Likely SIADH secondary to antipsychotics. We'll need to avoid antipsychotics which can cause SIADH. //Bipolar disorder = Hold all antipsychotics secondary to hyponatremia. Ativan when necessary for agitation. = Psychiatry following. hOld Haldol IM when necessary agitation. Try to avoid antipsychotics if possible. This will be a difficult challenge patient with severe bipolar disorder. //CK up to 1400 in medical psych on 07/18. 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 Follow-up here pending. Continue IV fluids above. 07/20. Difficult situation which required fluid restriction, as well as IV fluids. Recheck CK today. Continue IV fluids. = 07/21. CK in the 400s. Improving continue IV fluids. //Hypothyroidism. Chronic. Recent TSH within normal limits. //BPH. Patient denied issues with retention. Hold this medication for now. Continue to monitor urine output. = Patient with good output by condom catheter. Discharge Planning ordered transfer to [facility] If sodium continues stable, discharged back to [facility] in the next 1-2 days. We'll need to avoid antipsychotics which worsen hyponatremia. Max Albert MD Jul 21, 2017 18:55
[2017-07-21] MEDS: CHLORHEXIDINE GLUCONATE 2 % 1 PACK (2 CLOTHS)(taper/protocol) TOPICAL SCH (22:00)
[2017-07-22] VITALS (8 sets, daily range): BP systolic 119–166; BP diastolic 64–85; PULSE 69–87; RESP 14–19; TEMP 96.9–98.6; O2SAT 95–98
[2017-07-22 05:21] LABS: AUTOMATED NEUTROPHIL # 5.9 TH/MM3 (1.8-7.7); BASOPHIL % 0.2 % (0.0-2.0); EOSINOPHIL % 0.1 % (0.0-4.0); HEMATOCRIT 31.2 % (39.0-51.0); LYMPH % 7.8 % (9.0-44.0); LYMPHOCYTE # 0.6 TH/MM3 (1.0-4.8); MEAN CELL VOLUME 83.6 FL (80.0-100.0); MEAN CORPUSCULAR HEMOGLOBIN 29.4 PG (27.0-34.0); MEAN CORPUSCULAR HGB CONC 35.2 % (32.0-36.0); MEAN PLATELET VOLUME 7.2 FL (7.0-11.0); MONOCYTE # 0.7 TH/MM3 (0-0.9); NEUT % 81.9 % (16.0-70.0); PLATELET COUNT 324 TH/MM3 (150-450); RED BLOOD COUNT 3.73 MIL/MM3 (4.50-5.90); RED CELL DISTRIBUTION WIDTH 13.1 % (11.6-17.2); WHITE BLOOD COUNT 7.2 TH/MM3 (4.0-11.0)
[2017-07-22 05:49] LABS: ALBUMIN 3.2 GM/DL (3.4-5.0); BICARBONATE 23.5 MEQ/L (21.0-32.0); CALCIUM 8.8 MG/DL (8.5-10.1); CREATININE 0.7 MG/DL (0.60-1.30); MAGNESIUM 1.7 MG/DL (1.5-2.5); PHOSPHORUS 1.8 MG/DL (2.5-4.9)
[2017-07-22] MEDS: LEVOTHYROXINE SODIUM 75 MCG TAB PO SCH (06:00)
[2017-07-22] MEDS: SODIUM CHLORIDE 23.4% INJ 154 MEQ in DEXTROSE 10% INJ 1,000 ML IV SCH (06:33)
[2017-07-22] MEDS: HEPARIN SODIUM - SQ 10,000 UNITS/ML VIAL SQ SCH ×2 (11:04→20:31)
[2017-07-22] MEDS: SODIUM CHLORIDE 0.9% FLUSH 10 ML FLUSH IV FLUSH SCH ×2 (11:04→20:31)
--- NOTE | 2017-07-22 11:44 | HHI.NPPN ---
Subjective Interval History Moved out of ICU. He is sleeping, not in distress. On D10NS. (Hortencia Saldivar) Objective Data Data 07/22/17 07/23/17 19:00 07:00 Output Total 150 ml Balance -150 ml Output Urine Total 150 ml # Voids 1 # Bowel Movements 1 Vital Signs Date Time Temp Pulse Resp B/P (MAP) Pulse Ox O2 Delivery O2 Flow Rate FiO2 07/22/17 08:00 98.6 87 19 166/85 (112) 95 07/22/17 04:00 98.1 87 14 140/64 (89) 96 07/22/17 04:00 79 07/22/17 00:00 98.6 72 14 147/70 (95) 95 07/21/17 23:33 74 07/21/17 21:31 59 07/21/17 20:00 98.7 71 14 143/79 (100) 98 07/21/17 20:00 73 07/21/17 20:00 98.2 73 26 148/86 (106) 100 07/21/17 18:00 57 07/21/17 16:00 98.1 88 20 174/101 (125) 100 07/21/17 16:00 88 07/21/17 14:00 79 07/21/17 12:00 75 07/21/17 12:00 97.8 80 20 158/82 (107) 99 (Hortencia Saldivar) -: 07/22/17 0416 07/22/17 0416 Physical Exam General Appearance: Well Developed, Comfortable, Sleeping, Malnourished (Hortencia Saldivar) Throat Throat Remarks dry mucous membranes (Hortencia Saldivar) Pulmonary Resp Exam: Clear Bilaterally, Breath Sounds Equal (Hortencia Saldivar) Cardiology CV Exam: Regular, Normal Sinus Rhythm (Hortencia Saldivar) Gastrointestinal/Abdomen GI Exam: Soft, Non-Tender (Hortencia Saldivar) Musculoskeletal MS Exam: Joints Intact, Normal Tone, Unable to Ambulate (Hortencia Saldivar) Integumentary Skin Exam: Warm, Dry (Hortencia Saldivar) Extremeties Extremities Exam: No Edema, Pedal Pulses Palpable (Hortencia Saldivar) Neurologic Neuro Exam: Alert, Awake (Hortencia Saldivar) Assessment/Plan Discussed Condition With: Patient Electrolyte Assessment: Hyponatremia Problem List: (1) Hyponatremia ICD Codes: E87.1 - Hypo-osmolality and hyponatremia Plan: Chronic but acutely worse Lab studies suggest SIADH from Tegretol Off hypertonic saline, on D10NS, minimal oral intake Once he is eating suggest stopping IVF, consider NaCl tabs/fluid restriction, tolvaptan is not indicated Repeat labs (2) Bipolar disorder, current episode mixed, severe, with psychotic features ICD Codes: F31.64 - Bipolar disorder, current episode mixed, severe, with psychotic features Plan: Psychiatry is following Currently restrained. (Hortencia Saldivar) Plan patient was seen and examined. Agree with above assessment and plan. Start Sodium tablets. (Sherman Mix MD) Hortencia Saldivar Jul 22, 2017 11:44 Sherman Mix MD Jul 22, 2017 16:22
--- NOTE | 2017-07-22 15:21 | HHI.PR ---
Subjective Remarks Pt laying in bed, doesn't answer much of my answers. stares at the wall on the right then closes his eyes. currently on restraints. Objective Vitals Vital Signs Date Time Temp Pulse Resp B/P (MAP) Pulse Ox O2 Delivery O2 Flow Rate FiO2 07/22/17 12:00 96.9 74 18 119/72 (88) 96 07/22/17 08:00 98.6 87 19 166/85 (112) 95 07/22/17 04:00 98.1 87 14 140/64 (89) 96 07/22/17 04:00 79 07/22/17 00:00 98.6 72 14 147/70 (95) 95 07/21/17 23:33 74 07/21/17 21:31 59 07/21/17 20:00 98.7 71 14 143/79 (100) 98 07/21/17 20:00 73 07/21/17 20:00 98.2 73 26 148/86 (106) 100 07/21/17 18:00 57 07/21/17 16:00 98.1 88 20 174/101 (125) 100 07/21/17 16:00 88 I/O 07/21/17 07/21/17 07/21/17 07/22/17 07/22/17 07/22/17 07:00 15:00 23:00 07:00 15:00 23:00 Intake Total 120 ml 400 ml 600 ml Output Total 500 ml 700 ml 350 ml 150 ml Balance -380 ml -300 ml 250 ml -150 ml Intake Oral 120 ml 200 ml 0 ml IV Total 200 ml 600 ml Output Urine Total 500 ml 700 ml 350 ml 150 ml # Voids 1 # Bowel Movements 2 1 1 1 Result Diagram: 07/22/17 0416 07/22/17 0416 Objective Remarks GENERAL: laying in bed, briefly opens his eyes, stares at the wall then closes them. currently on restraints. NECK: Supple, trachea midline. CARDIOVASCULAR: Regular rate and rhythm without murmurs RESPIRATORY: Breath sounds equal bilaterally. No accessory muscle use. GASTROINTESTINAL: Abdomen soft, non-tender, nondistended. MUSCULOSKELETAL: No edema. A/P Assessment and Plan //Acute euvolemic hypotonic Hyponatremia Due to rapid decline from 125-116, patient was transferred to [facility] for close monitoring. Every 4 hours neuro checks. was placed on 2% normal saline at 30 mL per hour, with Q6 hour sodium checks. Restraints and Ativan as needed for agitation. Hold all antipsychotics. = 07/19. Sodium up to 120 today. Continue IV sodium at 50 miles per hour. Continue sodium checks. Nephrology consulted and following. Appreciate assistance. = 07/20. Sodium up to 126. We'll start diet with fluid restrictions. Start deep 10 normal saline low rate to prevent catabolic state. Appreciate nephrology assistance. = 07/21. Sodium up to 128. Continues slow improvement on IV fluids, oral diet. Hopefully can go back to med psych in the next couple days. Likely SIADH secondary to antipsychotics. We'll need to avoid antipsychotics which can cause SIADH. = 07/22. Sodium stable at 128. continue currently management. continue to avoid antipsychotics if possible as they can cause the hyponatremia. If sodium remains at 128 or continues to trend down, should be ok to transfer to med/ psych for further care. //Bipolar disorder = Psychiatry following. hold Haldol for now. Try to avoid antipsychotics if possible. This will be a difficult challenge patient with severe bipolar disorder. //CK up to 1400 in medical psych on 07/18. 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 Continue IV fluids above. 07/20. Difficult situation which required fluid restriction, as well as IV fluids. = 07/21. CK in the 400s. Improving continue IV fluids. = 07/22 repeat CPK in AM. //Hypothyroidism. Chronic. TSH within normal limits. //BPH. Patient denied issues with retention. Hold this medication for now. Continue to monitor urine output. = Patient with good output by condom catheter. Discharge Planning If sodium continues stable, discharged back to med psych in the next 1-2 days. We'll need to avoid antipsychotics which worsen hyponatremia. Alyson Savage MD Jul 22, 2017 15:21
[2017-07-22] MEDS: SODIUM CHLORIDE 1 GRAM TAB PO SCH (18:50)
[2017-07-22] MEDS: LORazepam 2 MG/ML VIAL IV PUSH PRN (20:29)
[2017-07-23] VITALS (8 sets, daily range): BP systolic 105–147; BP diastolic 60–83; PULSE 62–77; RESP 18–19; TEMP 97.1–98.8; O2SAT 98–99
[2017-07-23] MEDS: SODIUM CHLORIDE 23.4% INJ 154 MEQ in DEXTROSE 10% INJ 1,000 ML IV SCH ×2 (03:51→23:54)
[2017-07-23] MEDS: CHLORHEXIDINE GLUCONATE 2 % 1 PACK (2 CLOTHS)(taper/protocol) TOPICAL SCH (03:51)
[2017-07-23] MEDS: LEVOTHYROXINE SODIUM 75 MCG TAB PO SCH (05:15)
[2017-07-23 07:40] LABS: BICARBONATE 26.9 MEQ/L (21.0-32.0); CALCIUM 9.2 MG/DL (8.5-10.1); CREATININE 0.87 MG/DL (0.60-1.30)
[2017-07-23] MEDS: SODIUM CHLORIDE 1 GRAM TAB PO SCH (11:08)
[2017-07-23] MEDS: SODIUM CHLORIDE 0.9% FLUSH 10 ML FLUSH IV FLUSH SCH ×2 (11:09→21:00)
[2017-07-23] MEDS: HEPARIN SODIUM - SQ 10,000 UNITS/ML VIAL SQ SCH ×2 (11:09→21:22)
--- NOTE | 2017-07-23 12:38 | HHI.NPPN ---
Subjective History of Present Illness This is a 72 y/o male who was transferred from inpatient psychiatry unit for severe hyponatremia. His serum sodium was 119 yesterday, is 117 most recently. Looking back through 2017 he has had chronic hyponatremia, but not this severe. Today he is seen in [facility], is on 2% saline infusion, and is currently restrained. He appears dry, he reports he normally drinks "a lot" of water, remembers his sodium level being low but not anything else related to diagnosis or treatment. He is on Tegretol daily. He is a full code, we were consulted to assist with management. Additional Remarks Alert and oriented. Patient is currently restrained. (Damaris Muniz) Review of Systems Respiratory Respiratory Remarks Denies any SOB (Damaris Muniz) Cardiovascular Cardiac Remarks Denies any CP (Damaris Muniz) Gastrointestinal GI Remarks Denies any Abdominal pain (Damaris Muniz) Objective Data Data Vital Signs Date Time Temp Pulse Resp B/P (MAP) Pulse Ox O2 Delivery O2 Flow Rate FiO2 07/23/17 12:00 98.4 76 19 147/71 (96) 98 07/23/17 08:00 97.8 62 18 105/60 (75) 99 07/23/17 04:00 97.1 77 18 136/83 (100) 98 07/23/17 00:00 98.8 67 18 117/71 (86) 99 07/22/17 20:51 97.8 77 16 125/73 (90) 97 07/22/17 17:36 69 07/22/17 17:35 69 07/22/17 16:00 98.4 76 19 127/68 (87) 98 (Damaris Muniz) -: 07/22/17 0416 07/23/17 0556 Physical Exam General Appearance: Well Developed, Comfortable, Sleeping, Malnourished (Damaris Muniz) Pulmonary Resp Exam: Clear Bilaterally, Breath Sounds Equal (Damaris Muniz) Cardiology CV Exam: Regular, Normal Sinus Rhythm (Damaris Muniz) Gastrointestinal/Abdomen GI Exam: Soft, Non-Tender (Damaris Muniz) Musculoskeletal MS Exam: Joints Intact, Normal Tone, Unable to Ambulate (Damaris Muniz) Integumentary Skin Exam: Warm, Dry (Damaris Muniz) Extremeties Extremities Exam: No Edema, Pedal Pulses Palpable (Damaris Muniz) Neurologic Neuro Exam: Alert, Awake (Damaris Muniz) Assessment/Plan Discussed Condition With: Patient Electrolyte Assessment: Hyponatremia Problem List: (1) Hyponatremia ICD Codes: E87.1 - Hypo-osmolality and hyponatremia Plan: Chronic but acutely worse Sodium improving at 132 today Lab studies suggest SIADH from Tegretol Off hypertonic saline, on D10NS, minimal oral intake NaCl tabs started yesterday On fluid restriction, tolvaptan is not indicated Continue to monitor labs (2) Bipolar disorder, current episode mixed, severe, with psychotic features ICD Codes: F31.64 - Bipolar disorder, current episode mixed, severe, with psychotic features Plan: Psychiatry is following Currently restrained. Plan patient was seen and examined. Agree with above assessment and plan. Start Sodium tablets. (Damaris Muniz) Problem List: (1) Hyponatremia ICD Codes: E87.1 - Hypo-osmolality and hyponatremia Plan: Chronic but acutely worse Sodium improving at 132 today Lab studies suggest SIADH from Tegretol Off hypertonic saline, on D10NS, minimal oral intake NaCl tabs started yesterday On fluid restriction, tolvaptan is not indicated Continue to monitor labs Patient seen and examined, agree with above. (2) Bipolar disorder, current episode mixed, severe, with psychotic features ICD Codes: F31.64 - Bipolar disorder, current episode mixed, severe, with psychotic features Plan: Psychiatry is following Currently restrained. (Ellen Palacio MD) Damaris Muniz Jul 23, 2017 12:38 Ellen Palacio MD Jul 23, 2017 14:32
--- NOTE | 2017-07-23 17:53 | HHI.PR ---
Subjective Remarks 72M who is confused and unable to communicate effectively. Objective Vitals Vital Signs Date Time Temp Pulse Resp B/P (MAP) Pulse Ox O2 Delivery O2 Flow Rate FiO2 07/23/17 14:00 98.0 72 19 128/68 (88) 99 07/23/17 12:00 98.4 76 19 147/71 (96) 98 07/23/17 08:00 97.8 62 18 105/60 (75) 99 07/23/17 04:00 97.1 77 18 136/83 (100) 98 07/23/17 00:00 98.8 67 18 117/71 (86) 99 07/22/17 20:51 97.8 77 16 125/73 (90) 97 I/O 07/22/17 07/22/17 07/22/17 07/23/17 07/23/17 07/23/17 07:00 15:00 23:00 07:00 15:00 23:00 Intake Total 600 ml 1158.5 ml Output Total 350 ml 150 ml 250 ml 350 ml Balance 250 ml -150 ml -250 ml 808.5 ml Intake Oral 0 ml 120 ml IV Total 600 ml 1038.5 ml Output Urine Total 350 ml 150 ml 250 ml 350 ml # Voids 1 # Bowel Movements 1 1 1 Result Diagram: 07/22/17 0416 07/23/17 0556 Objective Remarks GENERAL: Thin male, confused SKIN: Warm and dry. HEAD: Normocephalic. EYES: No scleral icterus. No injection or drainage. NECK: Supple, trachea midline. No JVD or lymphadenopathy. CARDIOVASCULAR: Regular rate and rhythm without murmurs, gallops, or rubs. RESPIRATORY: Breath sounds equal bilaterally. No accessory muscle use. GASTROINTESTINAL: Abdomen soft, non-tender, nondistended. EXTREMITIES: No cyanosis, or edema. NEUROLOGICAL: Awake, alert, not oriented. No focal deficits A/P Problem List: (1) Hyponatremia ICD Code: E87.1 - Hypo-osmolality and hyponatremia (2) Schizoaffective disorder ICD Code: F25.9 - Schizoaffective disorder, unspecified Status: Acute (3) Dementia in other diseases classified elsewhere with behavioral disturbance ICD Code: F02.81 - Dementia in other diseases classified elsewhere with behavioral disturbance Status: Acute Assessment and Plan Acute Euvolemic Hypotonic Hyponatremia Altered Mental Status Sodium as low as 116 during this stay, today upto 132 Continue fluid restriction and follow BMP for sodium and renal function Confusion Baseline is unsure, but he is not a reliable historian due to bipolar, schizophrenia and dementia Possible effect from hyponatremia Appreciate psych consult Elevated CK May be neuromalignant syndrome, antipsychotics temporarily held Alternatively, could be his efforts fighting the restraints causing muscle breakdown Trend shows improvement, will follow DVT Prophylaxis SCD hose Discharge Planning If sodium remains stable, may transfer back to Med Psych in the next 1-2 days Alber Vee MD Jul 23, 2017 17:53
[2017-07-23 20:49] LABS: BICARBONATE 25.7 MEQ/L (21.0-32.0); CALCIUM 9.1 MG/DL (8.5-10.1); CREATININE 0.88 MG/DL (0.60-1.30)
[2017-07-23] MEDS: LORazepam 2 MG/ML VIAL IV PUSH PRN (21:20)
[2017-07-24] VITALS (9 sets, daily range): BP systolic 128–153; BP diastolic 70–81; PULSE 53–76; RESP 17–19; TEMP 96.8–98.3; O2SAT 96–100
[2017-07-24] MEDS: LEVOTHYROXINE SODIUM 75 MCG TAB PO SCH (04:58)
--- NOTE | 2017-07-24 08:49 | HHI.NPPN ---
Subjective History of Present Illness This is a 72 y/o male who was transferred from inpatient psychiatry unit for severe hyponatremia. His serum sodium was 119 yesterday, is 117 most recently. Looking back through 2017 he has had chronic hyponatremia, but not this severe. Today he is seen in [facility], is on 2% saline infusion, and is currently restrained. He appears dry, he reports he normally drinks "a lot" of water, remembers his sodium level being low but not anything else related to diagnosis or treatment. He is on Tegretol daily. He is a full code, we were consulted to assist with management. Additional Remarks Patient is restrained. Sodium levels improving with sodium level at 133 (Damaris Muniz) Review of Systems Respiratory Respiratory Remarks Denies any SOB (Damaris Muniz) Cardiovascular Cardiac Remarks Denies any CP (Damaris Muniz) Gastrointestinal GI Remarks Denies any Abdominal pain (Damaris Muniz) Objective Data Data 07/24/17 07/25/17 19:00 07:00 Intake Total 120 ml Balance 120 ml Intake Oral 120 ml Vital Signs Date Time Temp Pulse Resp B/P (MAP) Pulse Ox O2 Delivery O2 Flow Rate FiO2 07/24/17 08:00 96.9 62 17 138/70 (92) 98 07/24/17 04:31 96.9 74 18 146/81 (102) 97 07/24/17 03:20 74 07/24/17 00:00 98.3 71 18 147/79 (101) 97 07/23/17 23:18 71 07/23/17 20:00 97.5 73 18 143/77 (99) 99 07/23/17 19:40 73 07/23/17 14:00 98.0 72 19 128/68 (88) 99 07/23/17 12:00 98.4 76 19 147/71 (96) 98 (Damaris Muniz) -: 07/22/1741507/23/171943 Physical Exam General Appearance: Well Developed, Comfortable, Malnourished (Damaris Muniz) Pulmonary Resp Exam: Clear Bilaterally, Breath Sounds Equal (Damaris Muniz) Cardiology CV Exam: Regular, Normal Sinus Rhythm (Damaris Muniz) Gastrointestinal/Abdomen GI Exam: Soft, Non-Tender (Damaris Muniz) Musculoskeletal MS Exam: Joints Intact, Normal Tone, Unable to Ambulate (Damaris Muniz) Integumentary Skin Exam: Warm, Dry (Damaris Muniz) Extremeties Extremities Exam: No Edema, Pedal Pulses Palpable (Damaris Muniz) Neurologic Neuro Exam: Alert, Awake (Damaris Muniz) Assessment/Plan Discussed Condition With: Patient Electrolyte Assessment: Hyponatremia Problem List: (1) Hyponatremia ICD Codes: E87.1 - Hypo-osmolality and hyponatremia Plan: Chronic but acutely worse Sodium improving at 133 today Lab studies suggest SIADH from Tegretol Off hypertonic saline, on D10NS decreased to 25 ml/hr Oral intake improving Continue NaCl tabs On fluid restriction Hypokalemia with K of 3.4. Replacement given Continue to monitor labs (2) Bipolar disorder, current episode mixed, severe, with psychotic features ICD Codes: F31.64 - Bipolar disorder, current episode mixed, severe, with psychotic features Plan: Psychiatry is following Currently restrained. (Damaris Muniz) Problem List: (1) Hyponatremia ICD Codes: E87.1 - Hypo-osmolality and hyponatremia Plan: Chronic but acutely worse Sodium improving at 133 today Lab studies suggest SIADH from Tegretol Off hypertonic saline, on D10NS decreased to 25 ml/hr Oral intake improving Continue NaCl tabs On fluid restriction Hypokalemia with K of 3.4. Replacement given Continue to monitor labs. Patient seen and examined, agree with above. Dr. Mix will follow from AM. (2) Bipolar disorder, current episode mixed, severe, with psychotic features ICD Codes: F31.64 - Bipolar disorder, current episode mixed, severe, with psychotic features Plan: Psychiatry is following Currently restrained. (Ellen Palacio MD) Damaris Muniz Jul 24, 2017 08:49 Ellen Palacio MD Jul 24, 2017 11:50
[2017-07-24] MEDS ORDERED: POTASSIUM CHLORIDE 20 MEQ CONTROLLED RELEASE TAB PO ONE (09:00)
[2017-07-24] MEDS: SODIUM CHLORIDE 0.9% FLUSH 10 ML FLUSH IV FLUSH SCH ×2 (09:00→20:20)
[2017-07-24] MEDS: HEPARIN SODIUM - SQ 10,000 UNITS/ML VIAL SQ SCH ×2 (11:11→20:20)
[2017-07-24] MEDS: SODIUM CHLORIDE 1 GRAM TAB PO SCH (11:12)
[2017-07-24] MEDS ORDERED: SODIUM CHLORIDE 23.4% INJ 154 MEQ in DEXTROSE 10% INJ 1,000 ML IV SCH (13:30)
--- NOTE | 2017-07-24 15:03 | HHI.PR ---
Subjective Remarks This is the first day patient is mentally clear. He is able to say who is president and able to recall that it is "2017 or 2018". He wants to go for a walk, but is still in restraints (and weak). Objective Vitals Vital Signs Date Time Temp Pulse Resp B/P (MAP) Pulse Ox O2 Delivery O2 Flow Rate FiO2 07/24/17 12:00 97.8 71 19 129/73 (91) 100 07/24/17 08:00 96.9 62 17 138/70 (92) 98 07/24/17 04:31 96.9 74 18 146/81 (102) 97 07/24/17 03:20 74 07/24/17 00:00 98.3 71 18 147/79 (101) 97 07/23/17 23:18 71 07/23/17 20:00 97.5 73 18 143/77 (99) 99 07/23/17 19:40 73 I/O 07/23/17 07/23/17 07/23/17 07/24/17 07/24/17 07/24/17 07:00 15:00 23:00 07:00 15:00 23:00 Intake Total 1158.5 ml 1619 ml 344 ml 120 ml Output Total 350 ml 1200 ml 450 ml Balance 808.5 ml 419 ml -106 ml 120 ml Intake Oral 120 ml 740 ml 120 ml IV Total 1038.5 ml 879 ml 344 ml Output Urine Total 350 ml 1200 ml 450 ml # Bowel Movements 2 1 Result Diagram: 07/22/17 0416 07/23/17 194 Objective Remarks GENERAL: Thin male, alert today, fairly oriented SKIN: Warm and dry. HEAD: Normocephalic. EYES: No scleral icterus. No injection or drainage. NECK: Supple, trachea midline. No JVD or lymphadenopathy. CARDIOVASCULAR: Regular rate and rhythm without murmurs, gallops, or rubs. RESPIRATORY: Breath sounds equal bilaterally. No accessory muscle use. GASTROINTESTINAL: Abdomen soft, non-tender, nondistended. EXTREMITIES: No cyanosis, or edema. NEUROLOGICAL: Awake, alert, fair orientation. No focal deficits A/P Problem List: (1) Hyponatremia ICD Code: E87.1 - Hypo-osmolality and hyponatremia (2) Schizoaffective disorder ICD Code: F25.9 - Schizoaffective disorder, unspecified Status: Acute (3) Dementia in other diseases classified elsewhere with behavioral disturbance ICD Code: F02.81 - Dementia in other diseases classified elsewhere with behavioral disturbance Status: Acute Assessment and Plan Acute Euvolemic Hypotonic Hyponatremia Mental status is clear today Sodium nearing normal Continue fluid restriction and BMP monitoring Confusion Clear today, oriented (mostly) History of schizophrenia, bipolar, dementia Appreciate psych consult Elevated CK May be neuromalignant syndrome, antipsychotics temporarily held Alternatively, could be his efforts fighting the restraints causing muscle breakdown Trend shows improvement, following daily DVT Prophylaxis SCD hose Discharge Planning Possible transfer back to Med-Psych tomorrow Alber Vee MD Jul 24, 2017 15:03
[2017-07-24 22:55] LABS: BICARBONATE 24.3 MEQ/L (21.0-32.0); CALCIUM 9.1 MG/DL (8.5-10.1); CREATININE 0.77 MG/DL (0.60-1.30)
[2017-07-25 00:04] VITALS: PULSE 69
[2017-07-25 00:49] VITALS: BP 142/79; PULSE 79; RESP 18; TEMP 97.8; O2SAT 95
[2017-07-25 04:15] VITALS: PULSE 55
[2017-07-25 04:32] VITALS: BP 144/74; PULSE 81; RESP 18; TEMP 99.5; O2SAT 94
[2017-07-25] MEDS: LEVOTHYROXINE SODIUM 75 MCG TAB PO SCH (06:21)
[2017-07-25 08:00] VITALS: BP 148/67; PULSE 76; RESP 20; TEMP 98.7; O2SAT 97
[2017-07-25] MEDS: HEPARIN SODIUM - SQ 10,000 UNITS/ML VIAL SQ SCH (08:34)
[2017-07-25] MEDS: SODIUM CHLORIDE 1 GRAM TAB PO SCH (08:34)
[2017-07-25] MEDS: SODIUM CHLORIDE 0.9% FLUSH 10 ML FLUSH IV FLUSH SCH (08:35)
[2017-07-25] MEDS ORDERED: POTASSIUM CHLORIDE 20 MEQ CONTROLLED RELEASE TAB PO SCH (09:00)
[2017-07-25] MEDS ORDERED: SODIUM CHLOR 0.9% 1000 ML INJ 1,000 ML IV SCH (10:00)
[2017-07-25] MEDS ORDERED: ONDANSETRON HCL 4 MG/2 ML VIAL IV PUSH ONE (11:00)
--- NOTE | 2017-07-25 11:08 | HHI.NPPN ---
Subjective Interval History Sitting in a chair in the doorway. More alert, drinking water. (Hortencia Saldivar) Review of Systems Respiratory Respiratory Remarks Denies any SOB (Hortencia Saldivar) Cardiovascular Cardiac Remarks Denies any CP (Hortencia Saldivar) Gastrointestinal GI Remarks Denies any Abdominal pain (Hortencia Saldivar) Objective Data Data 07/25/17 07/26/17 19:00 07:00 Intake Total 120 ml Balance 120 ml Intake Oral 120 ml Vital Signs Date Time Temp Pulse Resp B/P (MAP) Pulse Ox O2 Delivery O2 Flow Rate FiO2 07/25/17 08:00 98.7 76 20 148/67 (94) 97 07/25/17 04:32 99.5 81 18 144/74 (97) 94 07/25/17 04:15 55 07/25/17 00:49 97.8 79 18 142/79 (100) 95 07/25/17 00:04 69 07/24/17 20:00 96.8 75 18 153/77 (102) 96 07/24/17 19:50 76 07/24/17 16:00 96.9 69 19 128/77 (94) 100 07/24/17 15:27 53 07/24/17 12:00 97.8 71 19 129/73 (91) 100 (Hortencia Saldivar) -: 07/22/17 0416 07/24/17 2150 Physical Exam General Appearance: Well Developed, Comfortable, Malnourished (Hortencia Saldivar) Throat Throat Remarks dry mucous membranes (Hortencia Saldivar) Pulmonary Resp Exam: Clear Bilaterally, Breath Sounds Equal (Hortencia Saldivar) Cardiology CV Exam: Regular, Normal Sinus Rhythm (Hortencia Saldivar) Gastrointestinal/Abdomen GI Exam: Soft, Non-Tender (Hortencia Saldivar) Musculoskeletal MS Exam: Joints Intact, Normal Tone, Unable to Ambulate (Hortencia Saldivar) Integumentary Skin Exam: Warm, Dry (Hortencia Saldivar) Extremeties Extremities Exam: No Edema, Pedal Pulses Palpable (Hortencia Saldivar) Neurologic Neuro Exam: Alert, Awake (Hortencia Saldivar) Assessment/Plan Discussed Condition With: Patient Electrolyte Assessment: Hyponatremia Problem List: (1) Hyponatremia ICD Codes: E87.1 - Hypo-osmolality and hyponatremia Plan: Chronic but acutely worse Lab studies suggest SIADH from Tegretol' it was stopped Initially improved, then sodium level dropped Stop IVF ordered PO fluid restriction On Salt tabs daily, 1g, continue for now Repeat labs ordered (2) Bipolar disorder, current episode mixed, severe, with psychotic features ICD Codes: F31.64 - Bipolar disorder, current episode mixed, severe, with psychotic features Plan: Psychiatry is following off restraints (Hortencia Saldivar) Plan patient was seen and examined. Agree with above assessment and plan. (Sherman Mix MD) Hortencia Saldivar Jul 25, 2017 11:08 Sherman Mix MD Jul 25, 2017 19:32
[2017-07-25 12:00] VITALS: BP 150/75; PULSE 73; RESP 19; TEMP 99; O2SAT 98
--- NOTE | 2017-07-25 16:51 | HHI.DS ---
Discharge Summary Admission Date Jul 18, 2017 at 18:07 Discharge Date: Jul 25, 2017 Admitting Diagnosis (1) Hyponatremia ICD Code: E87.1 - Hypo-osmolality and hyponatremia (2) Schizoaffective disorder ICD Code: F25.9 - Schizoaffective disorder, unspecified Status: Acute (3) Dementia in other diseases classified elsewhere with behavioral disturbance ICD Code: F02.81 - Dementia in other diseases classified elsewhere with behavioral disturbance Status: Acute Procedures none Brief History - From Admission 72-year-old male with bipolar disorder, dementia who initially was admitted to psychiatry with nervous breakdown, restlessness. Patient was being managed on the medical psychiatry floor with antipsychotics. He developed hyponatremia, sodium trending from 125 down to 121 this morning, subsequently 116 this afternoon. Patient denies any chest pain or shortness of breath, nausea, vomiting, lightheadedness, dizziness CBC/BMP: 07/22/17 0416 07/24/17 2150 Significant Findings Laboratory Tests Test 07/23/17 05:56 07/23/17 19:44 07/24/17 21:50 Sodium Level 132 MEQ/L (136-145) 133 MEQ/L (136-145) 129 MEQ/L (136-145) Chloride Level 97 MEQ/L (98-107) 96 MEQ/L (98-107) Estimat Glomerular Filtration Rate 87 ML/MIN (>89) 85 ML/MIN (>89) Total Creatine Kinase 349 U/L (39-308) 349 U/L (39-308) 814 U/L (39-308) Creatine Kinase MB 3.8 NG/ML (0.5-3.6) 4.6 NG/ML (0.5-3.6) 12.9 NG/ML (0.5-3.6) Random Glucose 107 MG/DL (74-106) Potassium Level 3.4 MEQ/L (3.5-5.1) PE at Discharge GENERAL: Thin male, alert today, fairly oriented SKIN: Warm and dry. HEAD: Normocephalic. EYES: No scleral icterus. No injection or drainage. NECK: Supple, trachea midline. No JVD or lymphadenopathy. CARDIOVASCULAR: Regular rate and rhythm without murmurs, gallops, or rubs. RESPIRATORY: Breath sounds equal bilaterally. No accessory muscle use. GASTROINTESTINAL: Abdomen soft, non-tender, nondistended. EXTREMITIES: No cyanosis, or edema. NEUROLOGICAL: Awake, alert, fair orientation. No focal deficits Hospital Course 72M admitted for altered mental status, found to have marked hyponatremia and elevated CK level. He became mentally clear 2 days ago, and by history he denies any muscle pain. On admission all psych meds were held due to risk of neuroleptic syndrome, fortunately he seems to be mentally clear and not psychotic despite this. He is sitting up today, AAOx3, eating and drinking on his own. He is not independent and is not yet resolved regarding the elevated CK. My recommendation at this time is to continue IVF hydration to supplement his PO intake, and follow serial CK levels to assure clearance. His sodium should be monitored as well. I've recommended transfer to a Medical/Psych facility for ongoing IV therapy and labwork. Pt Condition on Discharge: Stable Discharge Disposition: Disc to Psych Care Fac Discharge Time: <= 30 minutes Discharge Instructions DIET: Follow Instructions for: As Tolerated, No Restrictions Activities you can perform: Weight Bearing as Alber Silva MD Jul 25, 2017 16:51
== END 2017-07-25 15:06 | DRG 644 ==
LOC: HIMN 18:07 → N07A 07-21 20:37
PROVIDERS: ADMIT Family Medicine; ATTEND Family Medicine
DX: E22.2 Syndrome of inappropriate secretion of antidiuretic hormone (principal); F31.64 Bipolar disorder, current episode mixed, severe, with psychotic features; F03.91 Unspecified dementia, unspecified severity, with behavioral disturbance; E03.9 Hypothyroidism, unspecified; N40.0 Benign prostatic hyperplasia without lower urinary tract symptoms; T42.1X5A Adverse effect of iminostilbenes, initial encounter; E87.6 Hypokalemia; Z78.1 Physical restraint status
CPT/HCPCS: 80048; 80053; 80069; 82550; 82552; 83735; 83930; 83935; 84295; 84300; 84550; 85025; 87641; J1644; J2060; J2405; J7030

== ENCOUNTER 2017-07-25 15:15 | Inpatient (IN) | payer OTHER, MEDICAID, MEDICARE ==
[~2017-07-25] VITALS: Ht 177.8 cm; Wt 51.7 kg
[2017-07-25 18:16] VITALS: BP 112/56; PULSE 78; RESP 18; TEMP 98.1; O2SAT 95
[2017-07-25 18:18] VITALS: BP 161/84; PULSE 80; RESP 18; TEMP 98.2; O2SAT 97
[2017-07-25] MEDS ORDERED: ACETAMINOPHEN 325 MG TAB PO PRN (18:30)
[2017-07-25] MEDS ORDERED: LORazepam 1 MG TAB PO PRN (18:30)
[2017-07-25] MEDS ORDERED: MAGNESIUM HYDROXIDE SUSP 30 ML CUP PO PRN (18:30)
[2017-07-25] MEDS ORDERED: LORazepam 0.5 MG TAB PO PRN (18:30)
[2017-07-25] MEDS ORDERED: ALUMINUM/MAGNESIUM/SIMETH 30 ML CUP PO PRN (18:30)
[2017-07-25] MEDS ORDERED: LORazepam 2 MG/ML VIAL IM PRN (18:30)
[2017-07-25] MEDS: traZODone HCL 50 MG TAB PO SCH (21:00)
[2017-07-26] MEDS: LEVOTHYROXINE SODIUM 75 MCG TAB PO SCH (05:45)
[2017-07-26 06:00] VITALS: BP 139/78; PULSE 69; RESP 16; TEMP 97.9; O2SAT 99
[2017-07-26 07:40] VITALS: BP 135/71; PULSE 77; RESP 16; TEMP 97.7; O2SAT 98
--- NOTE | 2017-07-26 08:28 | HHI.HP ---
Provisional Diagnosis Admission Date Jul 25, 2017 at 15:15 [place] I. Bipolar disorder, dementia [place] III. Hyponatremia, hypothyroidism Certification of Person's Competence To Provide Express and Informed Consent I have personally examined Tyler Catherine , a person being served at [facility] on, Jul 26, 2017 07:57. Express and informed consent means consent voluntarily given in writing, by a competent person, after sufficient explanation and disclosure of the subject matter involved to enable the person to make a knowing and willful decision without any element of force, fraud, deceit, duress, or other form of constraint or coercion. This person is 18 years of age or older, is not now known to be incompetent to consent to treatment with a guardian advocate, and does not have a health care surrogate or proxy currently making medical treatment decisions. I have found this person to be one of the following: [] Competent to provide express and informed consent, as defined above, for voluntary admission to this facility and is competent to provide express and informed consent for treatment. He/she has the consistent capacity to make well reasoned, willful, and knowing decisions concerning his or her medical or mental health treatment. The person fully and consistently understands the purpose of the admission for examination/placement and is fully capable of personally exercising all rights assured [place] [x] Incompetent to provide express and informed consent to voluntary admission, and this is incompetent to provide express and informed consent to treatment. The person must be transferred to involuntary status and a petition for a guardian advocate filed with the Circuit Court. [] Refusing to provide express and informed consent to voluntary admission but is competent to provide express and informed consent for treatment. The person must be discharged or transferred to involuntary status. Form shall be completed within 24 hours of a person's arrival at the receiving facility and filed in the clinical record of each person: 1. Admitted on a voluntary basis 2. Permitted to provide express and informed consent to his/her own treatment 3. Allowed to transfer from involuntary to voluntary status 4. Prior to permitting a person to consent to his or her own treatment after having been previously found incompetent to consent to treatment. History of Present Illness Capacity: Lacks Capacity HPI Patient is a 72-year-old man, domiciled in a penitentiary, with a past psychiatric history of bipolar disorder dementia, prior psychiatric hospitalizations, past medical history significant for hypothyroidism who was admitted recently on 07/10/17 and discharged on 07/18/17 to the medical service due to hyponatremia and was recently readmitted back to psychiatry service for further evaluation and management. Patient was admitted initially for decreased eating, irritability, racing thoughts and labile mood, in the context of noncompliance to medications and was continued on Tegretol and Seroquel at that time. Patient was noted to have had hyponatremia and was discharged to medical service for further medical management was subsequently discharged back to medical/psychiatry unit for further management. Discussion nursing staff reported the patient had a fall last evening while he was sitting on the toilet and apparently fell in his knees but was noted patient to be touching the back of his head but due to patient's current confusion unable to acquire accurate history of what happened with his fall as per the patient. Patient was found in hospital chair noted to be alert and oriented only to person and place not time or situation. Patient had difficulty engaging with interview today noted to be confused and disoriented, with speech latency and unable to provide accurate history or recall recent events, particularly his fall last evening. Patient was unable to provide any adequate history at this time due to his disorientation. Family psychiatric history: Unable to assess due to patient's disorientation and cognitive deficits. Past psychiatric history: As per chart patient with a previous psychiatric diagnosis of bipolar disorder, dementia, previous psychiatric admissions, recently as stated above, unknown of previous suicide attempt with self interest behavior, last medication regimen included Tegretol and Seroquel and history of noncompliance with treatment. Substance use history: None as per chart Past medical history: Hypothyroidism, currently with hyponatremia Allergies: Depakote, methylphenidate, olanzapine Social history: Domiciled a penitentiary, minimal support systems Review of Systems ROS Limitations: Altered Mental Status Musculoskeletal: COMPLAINS OF: Joint pain (Knees) Past Psych History Psychological trauma history Unable to assess due to patient's disorientation and cognitive deficits. Violence risk - others (6 mos) Low Violence risk - self (6 mos) Low Substance Abuse History Drugs/Alcohol past 12 months None Past Family Social History Coded Allergies: divalproex sodium (Unverified Allergy, Severe, 06/02/17) olanzapine (Unverified Allergy, Severe, 06/02/17) methylphenidate (Unverified Allergy, Unknown, 06/02/17) Active Scripts Risperidone (Risperdal) 1 Mg Tab, 2 MG PO BID@0800,1600 for health, #60 TAB 0 Refills Prov:Tyler Batista MD 06/24/17 Quetiapine (Seroquel) 400 Mg Tab, 400 MG PO HS for health, #30 TAB 0 Refills Prov:Tyler Batista MD 06/24/17 Carbamazepine (Carbamazepine) 100 Mg Chew, 100 MG PO BID for health, #60 EA 0 Refills Prov:Tyler Batista MD 06/24/17 Diphenhydramine (Diphenhydramine) 25 Mg Cap, 25 MG PO HS Y for INSOMNIA, #30 CAP 0 Refills Prov:Tyler Batista MD 06/24/17 Levothyroxine (Levothyroxine) 75 Mcg Tab, 75 MCG PO DAILY for Thyroid, #30 TAB 0 Refills Prov:Tyler Batista MD 06/24/17 Tamsulosin (Flomax) 0.4 Mg Cap, 0.4 MG PO DAILY for health, #30 CAP 0 Refills Prov:Tyler Batista MD 06/24/17 [Lactulose] 30 ML SYRP No Conflict Check, 30 ML PO DAILY Y for SEVERE CONSITIPATION for 30 Days, ML Prov:Karla Hernandez MD 12/19/16 Reported Medications Trazodone (Trazodone) 50 Mg Tab, 50 MG PO HS for Control Depression, #30 TAB 0 Refills 07/08/17 Docusate Sodium (Docusate Sodium) 100 Mg Cap, 100 MG PO BID Y for CONSTIPATION, #60 CAP 0 Refills 06/02/17 Current Medications Medications (Trade) Dose Ordered Sig/Kerry Route Start Time Stop Time Status Last Admin (TEGretol CHEW) 100 mg BID PO 07/25/17 21:00 (Benadryl) 25 mg HS PRN PO 07/25/17 18:30 (Synthroid) 75 mcg DAILY@0600 PO 07/26/17 06:00 07/26/17 05:45 (Flomax) 0.4 mg DAILY PO 07/26/17 09:00 (Desyrel) 50 mg HS PO 07/25/17 21:00 (Ativan) 1 mg Q6H PRN PO 07/25/17 18:30 (Ativan Inj) 1 mg Q6H PRN IM 07/25/17 18:30 (Ativan) 0.5 mg Q12H PRN PO 07/25/17 18:30 (Ativan Inj) 0.5 mg Q12H PRN IM 07/25/17 18:30 (Tylenol) 650 mg Q4H PRN PO 07/25/17 18:30 07/25/17 21:11 (Milk Of Magnesia Liq) 30 ml DAILY PRN PO 07/25/17 18:30 (Mag-Al Plus Susp Liq) 30 ml Q6H PRN PO 07/25/17 18:30 (Habitrol 21 Mg Patch.24 Hr) 1 patch DAILY T-DERMAL 07/26/17 09:00 Family Psych History Unable to assess due to patient's disorientation and cognitive deficits. Social History Domiciled a penitentiary, minimal social support Patient's Strengths (min. 2) Verbal, access to health care Physical Exam Patient at this time noted to be somewhat lethargic, disoriented, appearing malnutritioned, no gross motor abnormalities but reporting pain on knees bilaterally, no tremors or EPS noted, no psychomotor agitation or retardation. Vital Signs Vital Signs Date Time Temp Pulse Resp B/P (MAP) Pulse Ox O2 Delivery O2 Flow Rate FiO2 07/26/17 06:00 97.9 69 16 139/78 (98) 99 Mental Status Examination Appearance: Disheveled Consciousness: Lethargic Orientation: Person, Place Speech: Hesitant, Slow Language: Other Fund of Knowledge: Inadequate Attention and Concentration: Inadequate Memory: Impaired Mood: Other Affect: Blunt Thought Process & Associations: Disorganized Thought Content: Other ([place]) Hallucination Type: Other (Unable to assess at this time due to patient's disorientation) Delusion Type: Other (Unable to assess at this time due to patient's disorientation) Suicidal Ideation: No Suicidal Plan: No Suicidal Intention: No Homicidal Ideation: No Homicidal Plan: No Homicidal Intention: No Insight: Poor Judgment: Poor Assessment & Plan Problem List: (1) Delirium due to another medical condition ICD Codes: F05 - Delirium due to known physiological condition (2) Hyponatremia ICD Codes: E87.1 - Hypo-osmolality and hyponatremia (3) Bipolar disorder ICD Codes: F31.9 - Bipolar disorder, unspecified (4) Dementia in other diseases classified elsewhere with behavioral disturbance ICD Codes: F02.81 - Dementia in other diseases classified elsewhere with behavioral disturbance Status: Acute Assessment & Plan Estimated LOS: 5-7 days. Patient is a 72-year-old man who carries a diagnosis of bipolar disorder, dementia, recently admitted to the inpatient psychiatry unit and discharged to medical service due to significant hyponatremia and was transferred back to the medical/psychiatric unit for further evaluation and management. Patient at this time continues to be noted to be very delirious, disoriented, unable to participate effectively in interview compared to patient's baseline. Patient continues with hyponatremia and continues to require medical stabilization will be followed by medical team here on the unit. Patient at this time will be admitted under involuntary hospitalization this patient at this time does not have capacity to decide whether hospitalization is necessary, will request second opinion. We will hold Tegretol and antipsychotic medications until patient is more medically stable. Continue to monitor mood and behavior. We will order imaging of these bilaterally as well as head CT due to a recent fall. We will order OT consult. Patient continues to be at fall risk, falls precautions. Continue to assess patient with ADLs. Discharge planning in progress Discharge Planning Return back to penitentiary when medically and psychiatrically stable. Alessandro Interiano MD Jul 26, 2017 08:28
[2017-07-26] MEDS: NICOTINE 21 MG/24 HR PATCH T-DERMAL SCH (08:58)
[2017-07-26] MEDS: TAMSULOSIN HCL 0.4 MG CAP PO SCH (08:59)
[2017-07-26] MEDS ORDERED: DOCUSATE SODIUM 100 MG CAP PO PRN (09:45)
[2017-07-26 10:30] VITALS: BP 125/81; PULSE 61
[2017-07-26] MEDS ORDERED: ONDANSETRON HCL 4 MG/2 ML VIAL IV PUSH PRN (11:00)
[2017-07-26] MEDS: SODIUM CHLOR 0.9% 1000 ML INJ 1,000 ML IV SCH ×2 (11:00→22:55)
--- NOTE | 2017-07-26 11:04 | RADRPT ---
EXAM DATE/TIME: 07/26/2017 10:08 [facility] COMPARISON: No previous studies available for comparison. INDICATIONS : Trauma, fall. RADIATION DOSE: 37.32 CTDIvol (mGy) MEDICAL HISTORY : Non-responsive. SURGICAL HISTORY : Non-responsive. ENCOUNTER: Initial ACUITY: 1 day PAIN SCALE: Non-responsive LOCATION: cranial TECHNIQUE: Multiple contiguous axial images were obtained of the head. Using automated exposure control and adj ustment of the mA and/or kV according to patient size, radiation dose was kept as low as reasonably a chievable to obtain optimal diagnostic quality images. DICOM format image data is available electro nically for review and comparison. FINDINGS: CEREBRUM: The ventricles are normal for age. No evidence of midline shift, mass lesion, hemorrhage or acute in farction. No extra-axial fluid collections are seen. POSTERIOR FOSSA: The cerebellum and brainstem are intact. The 4th ventricle is midline. The cerebellopontine angle i s unremarkable. EXTRACRANIAL: The visualized portion of the orbits is intact. SKULL: The calvaria is intact. No evidence of skull fracture. CONCLUSION: No acute disease. Jc Prescott Jr., MD on July 26, 2017 at 11:00 Board Certified Radiologist. This report was verified electronically.
--- NOTE | 2017-07-26 11:05 | RADRPT ---
EXAM DATE/TIME: 07/26/2017 09:22 [facility] COMPARISON: No previous studies available for comparison. INDICATIONS : Fall, right knee pain and bruising over patella. MEDICAL HISTORY : None. SURGICAL HISTORY : None. ENCOUNTER: Initial ACUITY: 1 day PAIN SCORE: 1/10 LOCATION: Right knee FINDINGS: Four view examination of the right knee demonstrates no evidence of fracture or dislocation. Bony mi neralization is normal. The articular surfaces are intact. The suprapatellar soft tissues have a no rmal configuration. CONCLUSION: 1. No acute fracture or dislocation. Loc Melendez MD on July 26, 2017 at 11:02 Board Certified Radiologist. This report was verified electronically.
--- NOTE | 2017-07-26 11:06 | RADRPT ---
EXAM DATE/TIME: 07/26/2017 09:35 [facility] COMPARISON: No previous studies available for comparison. INDICATIONS : Fall, left knee pain and bruising over patella. MEDICAL HISTORY : None. SURGICAL HISTORY : None. ENCOUNTER: Initial ACUITY: 1 day PAIN SCORE: 10 LOCATION: Left knee FINDINGS: Four view examination of the left knee demonstrates no evidence of fracture or dislocation. Bony min eralization is normal. The articular surfaces are intact. The suprapatellar soft tissues have a nor mal configuration. CONCLUSION: 1. No acute fracture or dislocation. Loc Melendez MD on July 26, 2017 at 11:03 Board Certified Radiologist. This report was verified electronically.
--- NOTE | 2017-07-26 11:07 | PD.CONS ---
HPI Service [facility] Consult Requested By Primary Care Physician Unknown Diagnoses: History of Present Illness Mr. Catherine is a 72-year-old male. He is admitted related to bipolar disorder. The last 24 hours he has become increasingly lethargic. He did have a fall and a knee x-ray and CT of brain ordered. Reports on these are pending. I reviewed the CT of the brain and don't see any overt evidence of bleed. Thyroid levels are within normal limits based on draw from 07/08/17. Blood pressures are also within normal limits. Patient does not have hypertension at baseline. He is not on any blood thinners. Hyponatremia has been a problem previously and labs for today are pending. Hyponatremia may be contributory to his lethargy. Other labs that I have ordered for today are ammonia, ABG, BNP, and CBC. Patient is reported to be a better historian than more active and ambulatory at recent previous baseline, compared to now where he is confused, unable to give a history, and not ambulating. Review of Systems ROS Limitations: Altered Mental Status, Poor Historian Gastrointestinal: DENIES: Abdominal pain Neurologic: DENIES: Headache Past Family Social History Allergies: Coded Allergies: divalproex sodium (Unverified Allergy, Severe, 06/02/17) olanzapine (Unverified Allergy, Severe, 06/02/17) methylphenidate (Unverified Allergy, Unknown, 06/02/17) Past Medical History Seizure disorder Benign prostatic hypertrophy Hypothyroidism Bipolar disorder Dementia Past Surgical History Appendectomy Reported Medications Reported Meds & Active Scripts Active Risperdal (Risperidone) 1 Mg Tab 2 Mg PO BID@0800,1600 Seroquel (Quetiapine Fumarate) 400 Mg Tab 400 Mg PO HS Carbamazepine 100 Mg Chew 100 Mg PO BID Diphenhydramine (Diphenhydramine HCl) 25 Mg Cap 25 Mg PO HS PRN Levothyroxine (Levothyroxine Sodium) 75 Mcg Tab 75 Mcg PO DAILY Flomax (Tamsulosin HCl) 0.4 Mg Cap 0.4 Mg PO DAILY [Lactulose Liq] 30 ML Syrp 30 Ml PO DAILY PRN 30 Days Reported Trazodone (Trazodone HCl) 50 Mg Tab 50 Mg PO HS Docusate Sodium 100 Mg Cap 100 Mg PO BID PRN Active Ordered Medications Administered Medications Medications (Trade) Dose Ordered Sig/Kerry Route PRN Reason Start Time Stop Time Status Last Admin Dose Admin Levothyroxine Sodium (Synthroid) 75 mcg DAILY@0600 PO 07/26/17 06:00 07/26/17 05:45 Acetaminophen (Tylenol) 650 mg Q4H PRN PO Pain 1-5 or Temp >101F 07/25/17 18:30 07/25/17 21:11 Family History Cancer in sister Social History No smoking No drinking of alcohol No illicit drug abuse Physical Exam Vital Signs Vital Signs Date Time Temp Pulse Resp B/P (MAP) Pulse Ox O2 Delivery O2 Flow Rate FiO2 07/26/17 10:30 61 125/81 (96) 07/26/17 07:40 97.7 77 16 135/71 (92) 98 07/26/17 06:00 97.9 69 16 139/78 (98) 99 07/25/17 18:18 98.2 80 18 161/84 (109) 97 07/25/17 18:16 98.1 78 18 112/56 (74) 95 Physical Exam GENERAL: NAD, A&Ox0 HEAD: Normocephalic. NECK: Supple, trachea midline. No lymphadenopathy. EYES: No scleral icterus. No injection or drainage. CARDIOVASCULAR: Regular rate and rhythm without murmurs, gallops, or rubs. RESPIRATORY: Breath sounds equal bilaterally. No accessory muscle use. GASTROINTESTINAL: Abdomen soft, non-tender, nondistended. MUSCULOSKELETAL: No cyanosis, or edema. SKIN: Warm and dry. NEURO: No focal neurological deficitis. Assessment and Plan Problem List: (1) Lethargy ICD Code: R53.83 - Other fatigue (2) Delirium due to another medical condition ICD Code: F05 - Delirium due to known physiological condition (3) Dementia in other diseases classified elsewhere with behavioral disturbance ICD Code: F02.81 - Dementia in other diseases classified elsewhere with behavioral disturbance Status: Acute (4) Hyponatremia ICD Code: E87.1 - Hypo-osmolality and hyponatremia (5) Bipolar disorder ICD Code: F31.9 - Bipolar disorder, unspecified Assessment and Plan 72-year-old male with acute onset of lethargy and weakness Lethargy Weakness Patient had a recent fall but this is likely secondary to weakness rather than the cause. Wet read of brain CT shows no overt evidence of bleeding Official CT read and the x-ray reports are pending. Check ABG Check ammonia level Check BMP and CBC Hyponatremia may be contributory Begin normal saline IV perfusion Hyponatremia BMP pending Patient does not appear fluid overloaded IV fluids with normal saline Follow sodium level Seizure disorder No witnessed seizures This could potentially be an etiology for his weakness and change in mental status We'll consider EEG based on preliminary workup findings Benign prostatic hypertrophy Hypothyroidism These conditions are within normal limits on recent evaluations Continue baseline management for these DVT prophylaxis SCDs, recent fall Juancarlos Vee MD Jul 26, 2017 11:06
[2017-07-26 12:46] LABS: HEMATOCRIT 31.4 % (39.0-51.0); HEMOGLOBIN 11.6 GM/DL (13.0-17.0); MEAN CELL VOLUME 84.2 FL (80.0-100.0); MEAN CORPUSCULAR HEMOGLOBIN 31.1 PG (27.0-34.0); MEAN PLATELET VOLUME 6.9 FL (7.0-11.0); PLATELET COUNT 329 TH/MM3 (150-450); RED BLOOD COUNT 3.73 MIL/MM3 (4.50-5.90); RED CELL DISTRIBUTION WIDTH 12.9 % (11.6-17.2); WHITE BLOOD COUNT 8.5 TH/MM3 (4.0-11.0)
[2017-07-26 13:41] LABS: BICARBONATE 24.5 MEQ/L (21.0-32.0); BLOOD UREA NITROGEN 17 MG/DL (7-18); CALCIUM 9.3 MG/DL (8.5-10.1); CHLORIDE 86 MEQ/L (98-107); GLOMERULAR FILTRATION RATE 95 ML/MIN (>89); GLUCOSE,RANDOM 123 MG/DL (74-106)
[2017-07-26 13:46] LABS: CHOLESTEROL 146 MG/DL (120-200); HDL CHOLESTEROL 80.8 MG/DL (40.0-60.0); LDL CHOLESTEROL 53 MG/DL (0-99); TRIGLYCERIDES 60 MG/DL (42-150)
[2017-07-26 13:50] LABS: SODIUM (NA) 120 MEQ/L (136-145)
--- NOTE | 2017-07-26 14:51 | PD.PSY.CON ---
Provisional Diagnosis Admission Date Jul 25, 2017 at 15:15 [place] I. Bipolar disorder, dementia [place] III. Hyponatremia, hypothyroidism History of Present Illness Service Psychiatry Consult Requested By Dr. Interiano Reason for Consult Second opinion Primary Care Physician Unknown HPI Patient is a 72-year-old man, domiciled in a residential, with a past psychiatric history of bipolar disorder dementia, prior psychiatric hospitalizations, past medical history significant for hypothyroidism who was admitted recently on 07/10/17 and discharged on 07/18/17 to the medical service due to hyponatremia and was recently readmitted back to psychiatry service for further evaluation and management. Patient was admitted initially for decreased eating, irritability, racing thoughts and labile mood, in the context of noncompliance to medications and was continued on Tegretol and Seroquel at that time. Patient was noted to have had hyponatremia and was discharged to medical service for further medical management was subsequently discharged back to medical/psychiatry unit for further management. Discussion nursing staff reported the patient had a fall last evening while he was sitting on the toilet and apparently fell in his knees but was noted patient to be touching the back of his head but due to patient's current confusion unable to acquire accurate history of what happened with his fall as per the patient. Patient was found in hospital chair noted to be alert and oriented only to person and place not time or situation. Patient had difficulty engaging with interview today noted to be confused and disoriented, with speech latency and unable to provide accurate history or recall recent events, particularly his fall last evening. Patient was unable to provide any adequate history at this time due to his disorientation. The patient is a 72 years old man, his domiciled in a residential, he has psychiatric history of bipolar disorder, dementia with behavioral disturbances, history of psychiatric admissions, he was recently admitted in [place] due to behavioral disturbances, transferred to the medical floor due to severe hyponatremia, and then transferred back to psychiatry to continue psychiatric treatment. He was consulted to live for second opinion. On psychiatric evaluation today the patient is distant, lethargic, minimally engageable in a conversation. However, he says that he feels fine, denies suicidal and homicidal ideation, he denies visual and auditory hallucinations. The patient is profusely confused, disoriented in time and place. He doesn't present at this moment any agitation, hostility or aggressive behavior. Review of Systems Except as stated in HPI: all other systems reviewed are Neg Past Family Social History Coded Allergies: divalproex sodium (Unverified Allergy, Severe, 06/02/17) olanzapine (Unverified Allergy, Severe, 06/02/17) methylphenidate (Unverified Allergy, Unknown, 06/02/17) Active Scripts Risperidone (Risperdal) 1 Mg Tab, 2 MG PO BID@0800,1600 for health, #60 TAB 0 Refills Prov:Tyler Batista MD 06/24/17 Quetiapine (Seroquel) 400 Mg Tab, 400 MG PO HS for health, #30 TAB 0 Refills Prov:Tyler Batista MD 06/24/17 Carbamazepine (Carbamazepine) 100 Mg Chew, 100 MG PO BID for health, #60 EA 0 Refills Prov:Tyler Batista MD 06/24/17 Diphenhydramine (Diphenhydramine) 25 Mg Cap, 25 MG PO HS Y for INSOMNIA, #30 CAP 0 Refills Prov:Tyler Batista MD 06/24/17 Levothyroxine (Levothyroxine) 75 Mcg Tab, 75 MCG PO DAILY for Thyroid, #30 TAB 0 Refills Prov:Tyler Batista MD 06/24/17 Tamsulosin (Flomax) 0.4 Mg Cap, 0.4 MG PO DAILY for health, #30 CAP 0 Refills Prov:Tyler Batista MD 06/24/17 [Lactulose] 30 ML SYRP No Conflict Check, 30 ML PO DAILY Y for SEVERE CONSITIPATION for 30 Days, ML Prov:Karla Hernandez MD 12/19/16 Reported Medications Trazodone (Trazodone) 50 Mg Tab, 50 MG PO HS for Control Depression, #30 TAB 0 Refills 07/08/17 Docusate Sodium (Docusate Sodium) 100 Mg Cap, 100 MG PO BID Y for CONSTIPATION, #60 CAP 0 Refills 06/02/17 Current Medications Medications (Trade) Dose Ordered Sig/Kerry Route Start Time Stop Time Status Last Admin (TEGretol CHEW) 100 mg BID PO 07/25/17 21:00 (Benadryl) 25 mg HS PRN PO 07/25/17 18:30 (Synthroid) 75 mcg DAILY@0600 PO 07/26/17 06:00 07/26/17 05:45 (Flomax) 0.4 mg DAILY PO 07/26/17 09:00 (Desyrel) 50 mg HS PO 07/25/17 21:00 (Ativan) 1 mg Q6H PRN PO 07/25/17 18:30 (Ativan Inj) 1 mg Q6H PRN IM 07/25/17 18:30 (Ativan) 0.5 mg Q12H PRN PO 07/25/17 18:30 (Ativan Inj) 0.5 mg Q12H PRN IM 07/25/17 18:30 (Tylenol) 650 mg Q4H PRN PO 07/25/17 18:30 07/25/17 21:11 (Milk Of Magnesia Liq) 30 ml DAILY PRN PO 07/25/17 18:30 (Mag-Al Plus Susp Liq) 30 ml Q6H PRN PO 07/25/17 18:30 (Habitrol 21 Mg Patch.24 Hr) 1 patch DAILY T-DERMAL 07/26/17 09:00 (Colace) 100 mg BID PRN PO 07/26/17 09:45 (Zofran Inj) 4 mg Q6HR PRN IV PUSH 07/26/17 11:00 07/26/17 13:00 Sodium Chloride 1,000 ml @ 84 mls/hr [id number] IV 07/26/17 11:00 07/26/17 11:00 Patient's Strengths (min. 2) Verbal, access to health care Physical Exam Vital Signs Vital Signs Date Time Temp Pulse Resp B/P (MAP) Pulse Ox O2 Delivery O2 Flow Rate FiO2 07/26/17 10:30 61 125/81 (96) 07/26/17 07:40 97.7 16 98 I/O 07/26/17 07/26/17 07/27/17 08:00 16:00 00:00 Intake Total 30 ml Balance 30 ml Lab Results Test 07/26/17 11:20 07/26/17 12:21 Blood Gas Puncture Site RT RADIAL Blood Gas Patient Temperature 98.6 Blood Gas HCO3 24 mmol/L Blood Gas Base Excess 0.4 mmol/L Blood Gas Oxygen Saturation 96 % Arterial Blood pH 7.46 Arterial Blood Partial Pressure CO2 34 mmHg Arterial Blood Partial Pressure O2 91 mmHG Arterial Blood Oxygen Content 14.3 Vol % Arterial Blood Carboxyhemoglobin 1.1 % Arterial Blood Methemoglobin 0.7 % Blood Gas Hemoglobin 10.5 G/DL Blood Gas Inspired Oxygen 21 % White Blood Count 8.5 TH/MM3 Red Blood Count 3.73 MIL/MM3 Hemoglobin 11.6 GM/DL Hematocrit 31.4 % Mean Corpuscular Volume 84.2 FL Mean Corpuscular Hemoglobin 31.1 PG Mean Corpuscular Hemoglobin Concent 37.0 % Red Cell Distribution Width 12.9 % Platelet Count 329 TH/MM3 Mean Platelet Volume 6.9 FL Blood Urea Nitrogen 17 MG/DL Creatinine 0.80 MG/DL Random Glucose 123 MG/DL Calcium Level 9.3 MG/DL Sodium Level 120 MEQ/L Potassium Level 4.0 MEQ/L Chloride Level 86 MEQ/L Carbon Dioxide Level 24.5 MEQ/L Anion Gap 10 MEQ/L Estimat Glomerular Filtration Rate 95 ML/MIN Ammonia 24 MCMOL/L Triglycerides Level 60 MG/DL Cholesterol Level 146 MG/DL LDL Cholesterol 53 MG/DL HDL Cholesterol 80.8 MG/DL Cholesterol/HDL Ratio 1.80 RATIO Mental Status Examination Appearance: Disheveled Consciousness: Lethargic Orientation: Person, Place Speech: Hesitant, Slow Language: Other Fund of Knowledge: Inadequate Attention and Concentration: Inadequate Memory: Impaired Mood: Other Affect: Blunt Thought Process & Associations: Disorganized Thought Content: Other ([place]) Hallucination Type: Other (Unable to assess at this time due to patient's disorientation) Delusion Type: Other (Unable to assess at this time due to patient's disorientation) Suicidal Ideation: No Suicidal Plan: No Suicidal Intention: No Homicidal Ideation: No Homicidal Plan: No Homicidal Intention: No Insight: Poor Judgment: Poor Assessment & Plan Problem List: (1) Delirium due to another medical condition ICD Codes: F05 - Delirium due to known physiological condition (2) Hyponatremia ICD Codes: E87.1 - Hypo-osmolality and hyponatremia (3) Bipolar disorder ICD Codes: F31.9 - Bipolar disorder, unspecified (4) Dementia in other diseases classified elsewhere with behavioral disturbance ICD Codes: F02.81 - Dementia in other diseases classified elsewhere with behavioral disturbance Status: Acute Assessment & Plan: I have seen and examined this patient for second opinion. Reviewed documentation. I agree and concur with Dr. Interiano assessment and plan. Assessment & Plan Estimated LOS: days Aidan Ohara MD Jul 26, 2017 14:51
[2017-07-26 17:45] LABS: HEMOGLOBIN A1C 5.7 % (4.3-6.0)
[2017-07-26 18:07] VITALS: BP 164/77; PULSE 73; RESP 18; TEMP 98.2; O2SAT 96
[2017-07-26] MEDS: traZODone HCL 50 MG TAB PO SCH (21:00)
[2017-07-27] MEDS: LEVOTHYROXINE SODIUM 75 MCG TAB PO SCH (05:27)
[2017-07-27 06:01] VITALS: BP 151/70; PULSE 74; RESP 16; TEMP 97.6; O2SAT 97
[2017-07-27] MEDS: TAMSULOSIN HCL 0.4 MG CAP PO SCH (07:25)
[2017-07-27] MEDS: NICOTINE 21 MG/24 HR PATCH T-DERMAL SCH (07:25)
[2017-07-27 08:10] LABS: HEMATOCRIT 30.8 % (39.0-51.0); HEMOGLOBIN 10.9 GM/DL (13.0-17.0); MEAN CELL VOLUME 83.4 FL (80.0-100.0); MEAN CORPUSCULAR HEMOGLOBIN 29.6 PG (27.0-34.0); MEAN CORPUSCULAR HGB CONC 35.4 % (32.0-36.0); MEAN PLATELET VOLUME 6.9 FL (7.0-11.0); PLATELET COUNT 301 TH/MM3 (150-450); WHITE BLOOD COUNT 8.3 TH/MM3 (4.0-11.0)
[2017-07-27 08:36] LABS: CALCIUM 8.9 MG/DL (8.5-10.1); CREATININE 0.76 MG/DL (0.60-1.30)
--- NOTE | 2017-07-27 09:03 | HHI.PR ---
Subjective Remarks Written by Ant Sorto, acting as scribe for Dr. Meyer on 07/27/17 at 09:03. Follow up visit for AMS, fall, and hyponatremia. Patient seen and examined with nurse at bedside, he is asleep but awakens. He is able to state his full name and , but not oriented to time or place. Discussed with nurse who states patient has been coughing since yesterday, cough nonproductive. Patient has also not been eating much or drinking much. Objective Vitals Vital Signs Date Time Temp Pulse Resp B/P (MAP) Pulse Ox O2 Delivery O2 Flow Rate FiO2 07/27/17 06:01 97.6 74 16 151/70 (97) 97 07/26/17 18:07 98.2 73 18 164/77 (106) 96 07/26/17 10:30 61 125/81 (96) I/O 07/26/17 07/26/17 07/26/17 07/27/17 07/27/17 07/27/17 07:00 15:00 23:00 07:00 15:00 23:00 Intake Total 30 ml 390 ml 35 ml 120 ml Balance 30 ml 390 ml 35 ml 120 ml Intake Oral 30 ml 390 ml 35 ml 120 ml # Voids 1 4 3 Result Diagram: 07/27/1772507/27/17725 Imaging Last Impressions Knee X-Ray 07/26/17 0000 Signed Impressions: Service Date/Time: Wednesday, July 26, 2017 09:22 - CONCLUSION: 1. No acute fracture or dislocation. Loc Melendez MD Head CT 07/26/17 0000 Signed Impressions: Service Date/Time: Wednesday, July 26, 2017 10:08 - CONCLUSION: No acute disease. Jc Prescott Jr., MD Objective Remarks GENERAL: This is a thin-appearing, well-developed patient, asleep, flat affect. SKIN: Warm and dry. Pale. HEENT: Normocephalic. Pupils equal round and reactive. Nose without bleeding. Airway patent. NECK: Trachea midline. CARDIOVASCULAR: Regular rate and rhythm without murmurs, gallops, or rubs. RESPIRATORY: No wheezes, crackles, rales, or rhonchi. GASTROINTESTINAL: Abdomen soft, non-tender, nondistended. Bowel Sounds normoactive x4. MUSCULOSKELETAL: Extremities without clubbing, cyanosis, or edema. Moves all extremities, following some commands on and off. NEUROLOGICAL: Awake and alert. Flat affect. Normal speech. A/P Problem List: (1) Lethargy ICD Code: R53.83 - Other fatigue (2) Delirium due to another medical condition ICD Code: F05 - Delirium due to known physiological condition (3) Dementia in other diseases classified elsewhere with behavioral disturbance ICD Code: F02.81 - Dementia in other diseases classified elsewhere with behavioral disturbance Status: Acute (4) Hyponatremia ICD Code: E87.1 - Hypo-osmolality and hyponatremia (5) Bipolar disorder ICD Code: F31.9 - Bipolar disorder, unspecified Assessment and Plan 72-year-old male with acute onset of lethargy and weakness admitted on medical psych unit, medical team following for ongoing medical management. Lethargy Weakness - Recent fall but this is likely secondary to weakness rather than the cause. - Brain CT shows no acute disease or bleeding, knee x-rays negative - ABG with no acute reason for AMS/lethargy - ammonia level WNL - hyponatremia on BMP, likely the cause of lethargy. CBC with anemia which is not new. - swallow evaluation due to lethargy Hyponatremia - NA 120-->123 - Patient does not appear fluid overloaded - Will give NS bolus and continue IV NS@84ml/hr, NA tabs 1gm PO if able to take, check NA levels Q6hrs, fluid restrictions, if not improving may need 3% NS and transfer to ICU. Will consult nephrology. 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 Consider stopping tegretol Seizure disorder - No witnessed seizures - This could potentially be an etiology for his weakness and change in mental status - We'll consider EEG based on preliminary workup findings - Correct Na Benign prostatic hypertrophy - Hypothyroidism - These conditions are within normal limits on recent evaluations - Continue baseline management for these Cough - Concern for aspiration, afebrile with no WBC rise - Swallow evaluation, advance diet per ST - Chest x-ray reviewed and abnormal. No PNA or fluid overload Dilated esophagus. pt with h/o achalasia. Consult GI for eval. DVT prophylaxis - SCDs, recent fall Discussed with patient, nurse This note was transcribed by MICHELE Riddle I, Dr. Thelma Meyer personally performed the history, physical exam, and medical decision making; and confirmed the accuracy of the information in the transcribed note. Authenticated by Dr. Thelma Meyer on 07/27/17 at 09:03. Ant Sorto Jul 27, 2017 09:03 Thelma Meyer MD Jul 27, 2017 14:14
[2017-07-27] MEDS ORDERED: SODIUM CHLORIDE 1 GRAM TAB PO ONE (10:00)
[2017-07-27] MEDS ORDERED: SODIUM CHLOR 0.9% 1000 ML INJ 1,000 ML IV ONE ×2 (10:00→20:00)
[2017-07-27] MEDS: SODIUM CHLOR 0.9% 1000 ML INJ 1,000 ML IV SCH ×2 (10:50→22:00)
--- NOTE | 2017-07-27 11:24 | RADRPT ---
EXAM DATE/TIME: 07/27/2017 10:24 [facility] COMPARISON: No previous studies available for comparison. INDICATIONS : Short of breath. MEDICAL HISTORY : Gastroesophageal reflux disease. Renal insufficiency. SURGICAL HISTORY : Esophogeal surgery. ENCOUNTER: Subsequent ACUITY: 2 days PAIN SCORE: 0/10 LOCATION: Bilateral chest FINDINGS: There is either enlarged dilated esophagus present or air in the mediastinum. The left lung is clear. The heart and pulmonary vascularity are normal. CONCLUSION: Abnormal chest x-ray. CT scan is suggested No prior studies for comparison. Pipo Hernandez MD FACR on July 27, 2017 at 11:17 Board Certified Radiologist. This report was verified electronically.
[2017-07-27 12:23] VITALS: BP 145/83; PULSE 76; RESP 18; TEMP 98.2; O2SAT 97
--- NOTE | 2017-07-27 13:40 | RADRPT ---
EXAM DATE/TIME: 07/27/2017 13:21 [facility] COMPARISON: CHEST SINGLE AP, July 27, 2017, 10:24. INDICATIONS : Evaluate for dilated esophagus or free air in the mediatinum. RADIATION DOSE: 6.34 CTDIvol (mGy) ACUITY: 1 day PAIN SCALE: Non-responsive MEDICAL HISTORY : Bi-Polar disorder. SURGICAL HISTORY : Appendectomy. ENCOUNTER: Initial LOCATION: chest TECHNIQUE: Volumetric scanning of the chest was performed. Using automated exposure control and adjustment of t he mA and/or kV according to patient size, radiation dose was kept as low as reasonably achievable to obtain optimal diagnostic quality images. DICOM format image data is available electronically for r eview and comparison. Follow-up recommendations for detected pulmonary nodules are based at a minimum on nodule size and pa tient risk factors according to Fleischner Society Guidelines. FINDINGS: LUNGS: Right basilar atelectatic changes. Minimal compressive atelectatic changes medially in the right spring thorax adjacent to the dilated esophagus. PLEURAE: There is no pleural thickening or pleural effusion. MEDIASTINUM: CT images confirm the presence of a markedly dilated, debris-filled esophagus. Ring of surgical stapl es at the GE junction with a linear array of manjit extending to the lesser curvature of the stomach . AXILLAE: Within normal limits. No lymphadenopathy. MUSCULOSKELETAL: Within normal limits for patient age. MISCELLANEOUS: The visualized upper abdominal organs demonstrate no acute abnormality. CONCLUSION: 1. CT confirms the presence of a dilated esophagus with luminal debris. 2. In addition, there are findings of prior surgery with a ring of small surgical manjit at the GE j unction and an additional linear wrist manjit extending from the GE junction to the lesser curvature of the stomach. 3. Mild atelectatic changes posteriorly in the right hemithorax and medially adjacent to the dilated esophagus. Jose Eason MD on July 27, 2017 at 13:31 Board Certified Radiologist. This report was verified electronically.
--- NOTE | 2017-07-27 13:57 | HHI.PYPN ---
Subjective Remarks Patient seen for follow-up, chart reviewed. Discussion with nursing staff reported that patient had difficulty with sleep, continues to be confused. Patient was found lying on hospital bed, noted to be confused, alert and oriented only to person and place. He is lethargic and unable to participate effectively in interview. Patient was able to express having had difficulty with sleep last night but could no further elaborate and had to asked multiple times the same question for answer. Noted with significant thought delay and response. Review of Systems Except as stated in HPI: all other systems reviewed are Neg Mental Status Examination Appearance: Disheveled Consciousness: Lethargic Orientation: Person, Place Speech: Hesitant, Slow Language: Other Fund of Knowledge: Inadequate Attention and Concentration: Inadequate Memory: Impaired Mood: Other Affect: Blunt Thought Process & Associations: Disorganized Thought Content: Other ([place]) Hallucination Type: Other (Unable to assess at this time due to patient's disorientation) Delusion Type: Other (Unable to assess at this time due to patient's disorientation) Suicidal Ideation: No Suicidal Plan: No Suicidal Intention: No Homicidal Ideation: No Homicidal Plan: No Homicidal Intention: No Insight: Poor Judgment: Poor Results Labs labs reviewed Test 07/27/17 07:26 White Blood Count 8.3 TH/MM3 Red Blood Count 3.70 MIL/MM3 Hemoglobin 10.9 GM/DL Hematocrit 30.8 % Mean Corpuscular Volume 83.4 FL Mean Corpuscular Hemoglobin 29.6 PG Mean Corpuscular Hemoglobin Concent 35.4 % Red Cell Distribution Width 13.0 % Platelet Count 301 TH/MM3 Mean Platelet Volume 6.9 FL Blood Urea Nitrogen 15 MG/DL Creatinine 0.76 MG/DL Random Glucose 94 MG/DL Calcium Level 8.9 MG/DL Sodium Level 123 MEQ/L Potassium Level 4.0 MEQ/L Chloride Level 89 MEQ/L Carbon Dioxide Level 24.0 MEQ/L Anion Gap 10 MEQ/L Estimat Glomerular Filtration Rate 101 ML/MIN Vitals/IOs Vital Signs Date Time Temp Pulse Resp B/P (MAP) Pulse Ox O2 Delivery O2 Flow Rate FiO2 07/27/17 12:23 98.2 76 18 145/83 (103) 97 Intake and Output 07/27/17 07/27/17 07/28/17 08:00 16:00 00:00 Intake Total 155 ml Balance 155 ml Assessment & Plan Problem List: (1) Delirium due to another medical condition ICD Codes: F05 - Delirium due to known physiological condition (2) Hyponatremia ICD Codes: E87.1 - Hypo-osmolality and hyponatremia (3) Bipolar disorder ICD Codes: F31.9 - Bipolar disorder, unspecified (4) Dementia in other diseases classified elsewhere with behavioral disturbance ICD Codes: F02.81 - Dementia in other diseases classified elsewhere with behavioral disturbance Status: Acute Assessment & Plan Patient this time continues to be lethargic confused and disoriented and unable to participate effectively interview today. Patient continues with significant hyponatremia. Continue recommendations as per primary medical team. We will continue to defer from starting psychotropic medications until patient is more medically stable. Once patient no longer delirious will determine whether the patient has capacity to consent for treatment but not at this time due to his current disorientation and confusion. Continue to monitor mood and behavior. Discharge planning in progress. Justification for Cont. Inpt. At risk for decompensation at lower level of care. Discharge Planning To be determined Alessandro Interiano MD Jul 27, 2017 13:57
--- NOTE | 2017-07-27 14:27 | PD.CONS ---
HPI History of Present Illness This is a 72 year old male admitted for lability and decreased food intake, subsequently treated medically for hyponatremia, and readmitted to psych [facility] for continued management. GI has been consulted for dysphagia. Nurse reports he has been coughing while eating. Pt c/o bolus sensation. Says he has been told he has achalasia but cannot provide further info. He has had an EGD but does not know when. Denies n/v, abd pain, painfuls wallowing. He has been evaluated by speech therapy who cleared him for mechanical soft diet. CT suggestive of some prior gastric surgery. (Alise Merino) PFSH Past Medical History achalasia bipolar Past Surgical History gastric surgery (Alise Merino) Coded Allergies: divalproex sodium (Unverified Allergy, Severe, 06/02/17) olanzapine (Unverified Allergy, Severe, 06/02/17) methylphenidate (Unverified Allergy, Unknown, 06/02/17) Family History unk Social History unk (Alise Merino) Review of Systems Gastrointestinal: COMPLAINS OF: Difficulty Swallowing, DENIES: Abdominal pain, Odynophagia, Hematemesis otherwise noncontributory (Alise Merino) GI Exam Vitals I&O Vital Signs Date Time Temp Pulse Resp B/P (MAP) Pulse Ox O2 Delivery O2 Flow Rate FiO2 07/27/17 12:23 98.2 76 18 145/83 (103) 97 07/27/17 06:01 97.6 74 16 151/70 (97) 97 07/26/17 18:07 98.2 73 18 164/77 (106) 96 I/O 07/26/17 07/26/17 07/26/17 07/27/17 07/27/17 07/27/17 07:00 15:00 23:00 07:00 15:00 23:00 Intake Total 30 ml 390 ml 35 ml 240 ml Balance 30 ml 390 ml 35 ml 240 ml Intake Oral 30 ml 390 ml 35 ml 240 ml # Voids 1 4 3 Imaging Last Impressions Chest X-Ray 07/27/17 0000 Signed Impressions: Service Date/Time: Thursday, July 27, 2017 10:24 - CONCLUSION: Abnormal chest x-ray. CT scan is suggested No prior studies for comparison. Pipo Hernandez MD FACR Chest CT 07/27/17 0000 Signed Impressions: Service Date/Time: Thursday, July 27, 2017 13:21 - CONCLUSION: 1. CT confirms the presence of a dilated esophagus with luminal debris. 2. In addition, there are findings of prior surgery with a ring of small surgical manjit at the GE junction and an additional linear wrist manjit extending from the GE junction to the lesser curvature of the stomach. 3. Mild atelectatic changes posteriorly in the right hemithorax and medially adjacent to the dilated esophagus. Jose Eason MD Knee X-Ray 07/26/17 0000 Signed Impressions: Service Date/Time: Wednesday, July 26, 2017 09:22 - CONCLUSION: 1. No acute fracture or dislocation. Loc Melendez MD Head CT 07/26/17 0000 Signed Impressions: Service Date/Time: Wednesday, July 26, 2017 10:08 - CONCLUSION: No acute disease. Jc Prescott Jr., MD Laboratory Test 07/27/17 07:26 White Blood Count 8.3 TH/MM3 Red Blood Count 3.70 MIL/MM3 Hemoglobin 10.9 GM/DL Hematocrit 30.8 % Mean Corpuscular Volume 83.4 FL Mean Corpuscular Hemoglobin 29.6 PG Mean Corpuscular Hemoglobin Concent 35.4 % Red Cell Distribution Width 13.0 % Platelet Count 301 TH/MM3 Mean Platelet Volume 6.9 FL Blood Urea Nitrogen 15 MG/DL Creatinine 0.76 MG/DL Random Glucose 94 MG/DL Calcium Level 8.9 MG/DL Sodium Level 123 MEQ/L Potassium Level 4.0 MEQ/L Chloride Level 89 MEQ/L Carbon Dioxide Level 24.0 MEQ/L Anion Gap 10 MEQ/L Estimat Glomerular Filtration Rate 101 ML/MIN Physical Examination HEENT: PERRL; normocephalic; atraumatic; no jaundice. CHEST: CTA CARDIAC: RRR ABDOMEN: Soft, nondistended, nontender; no hepatosplenomegaly; bowel sounds are present in all four quadrants. EXTREMITIES: No clubbing, cyanosis, or edema. SKIN: walt face, no rash; no jaundice. [employer]: alert, tremulous (Alise Merino) Assessment and Plan Plan ASSESSMENT - dysphagia - appears chronic, pt admits hx achalasia. c/o bolus sensation. CT chest indicated he has had gastric surgery, dilated esophagus with luminal debris PLAN - barium swallow - diet per ST - supportive care - further recs to follow pt seen by myself and Dr Ward and this note is written on his behalf (Alise Merino) Physician Comments Patient seen and examined Agree with above Continue current supportive care Monitor labs Patient with history of achalasia who seems to have had some kind of surgical intervention I think best approach at this point would be to get a barium swallow further recommendations shall depend on the findings (Wei Ward MD) Alise Merino Jul 27, 2017 14:27 Wei Ward MD Jul 27, 2017 20:16
[2017-07-27 15:04] LABS: BICARBONATE 23.5 MEQ/L (21.0-32.0); CALCIUM 8.5 MG/DL (8.5-10.1); CREATININE 0.73 MG/DL (0.60-1.30)
[2017-07-27] MEDS ORDERED: PADIMATE (CHAPSTICK) 4.5 GM TUBE TOPICAL PRN (15:30)
[2017-07-27 18:28] VITALS: BP 137/82; PULSE 69; RESP 16; TEMP 98; O2SAT 97
[2017-07-27] MEDS: traZODone HCL 50 MG TAB PO SCH (21:38)
--- NOTE | 2017-07-27 21:57 | EKG ---
Date Performed: 07/26/2017 Time Performed: 15:36:14 PTAGE: 72 years EKG: Sinus rhythm POSSIBLE RIGHT ATRIAL ENLARGEMENT LEFT ATRIAL ENLARGEMENT INDETERMINATE AXIS POSSIBLE RIGHT VENTRICU LAR CONDUCTION DELAY ANTEROSEPTAL MYOCARDIAL INFARCTION , OF INDETERMINATE AGE ABNORMAL ECG PREVIOUS TRACING : 06/03/2017 14.16 Since the prior tracing, there has been no significant styles DOCTOR: Rosas Pascal Interpretating Date/Time 07/27/2017 21:56:08
[2017-07-28] MEDS: LEVOTHYROXINE SODIUM 75 MCG TAB PO SCH (05:31)
[2017-07-28 06:42] VITALS: BP 139/74; PULSE 67; RESP 16; TEMP 98.1; O2SAT 96
[2017-07-28] MEDS ORDERED: SODIUM CHLORIDE 1 GRAM TAB PO SCH (09:00)
[2017-07-28 09:40] LABS: AUTOMATED NEUTROPHIL # 5.8 TH/MM3 (1.8-7.7); BASOPHIL % 0.4 % (0.0-2.0); EOSINOPHIL # 0.1 TH/MM3 (0-0.4); EOSINOPHIL % 0.9 % (0.0-4.0); HEMATOCRIT 30.9 % (39.0-51.0); HEMOGLOBIN 10.8 GM/DL (13.0-17.0); LYMPH % 11.2 % (9.0-44.0); LYMPHOCYTE # 0.9 TH/MM3 (1.0-4.8); MEAN CORPUSCULAR HEMOGLOBIN 29.4 PG (27.0-34.0); MEAN PLATELET VOLUME 6.8 FL (7.0-11.0); MONO % 11.5 % (0.0-8.0); MONOCYTE # 0.9 TH/MM3 (0-0.9); PLATELET COUNT 313 TH/MM3 (150-450); RED BLOOD COUNT 3.67 MIL/MM3 (4.50-5.90); RED CELL DISTRIBUTION WIDTH 13.2 % (11.6-17.2); WHITE BLOOD COUNT 7.6 TH/MM3 (4.0-11.0)
--- NOTE | 2017-07-28 09:45 | HHI.PR ---
Subjective Remarks Follow up visit for AMS, fall, and hyponatremia. Patient seen and examined with nurse at bedside, he is asleep but awakens. He is able to state his full name and , but not oriented to time or place. Discussed with nurse who states patient has been coughing since yesterday, cough nonproductive. Patient has also not been eating much or drinking much. 2-15 NO NEW COMPLAINTS ALLOWED BLOOD WORK TODAY DW RN LABS PENDING INCREASE NACL TABS TO TID Objective Vitals Vital Signs Date Time Temp Pulse Resp B/P (MAP) Pulse Ox O2 Delivery O2 Flow Rate FiO2 07/28/17 06:42 98.1 67 16 139/74 (95) 96 07/27/17 18:28 98.0 69 16 137/82 (100) 97 07/27/17 12:23 98.2 76 18 145/83 (103) 97 I/O 07/27/17 07/27/17 07/27/17 07/28/17 07/28/17 07/28/17 07:00 15:00 23:00 07:00 15:00 23:00 Intake Total 35 ml 480 ml 240 ml Balance 35 ml 480 ml 240 ml Intake Oral 35 ml 480 ml 240 ml # Voids 3 2 3 Result Diagram: 07/27/17 0726 07/27/17 1825 Other Results Laboratory Tests Test 07/26/17 11:20 07/26/17 12:21 07/27/17 07:26 07/27/17 14:30 Blood Gas Puncture Site RT RADIAL Blood Gas Patient Temperature 98.6 Blood Gas HCO3 24 mmol/L Blood Gas Base Excess 0.4 mmol/L Blood Gas Oxygen Saturation 96 % Arterial Blood pH 7.46 Arterial Blood Partial Pressure CO2 34 mmHg Arterial Blood Partial Pressure O2 91 mmHG Arterial Blood Oxygen Content 14.3 Vol % Arterial Blood Carboxyhemoglobin 1.1 % Arterial Blood Methemoglobin 0.7 % Blood Gas Hemoglobin 10.5 G/DL Blood Gas Inspired Oxygen 21 % White Blood Count 8.5 TH/MM3 8.3 TH/MM3 Red Blood Count 3.73 MIL/MM3 3.70 MIL/MM3 Hemoglobin 11.6 GM/DL 10.9 GM/DL Hematocrit 31.4 % 30.8 % Mean Corpuscular Volume 84.2 FL 83.4 FL Mean Corpuscular Hemoglobin 31.1 PG 29.6 PG Mean Corpuscular Hemoglobin Concent 37.0 % 35.4 % Red Cell Distribution Width 12.9 % 13.0 % Platelet Count 329 TH/MM3 301 TH/MM3 Mean Platelet Volume 6.9 FL 6.9 FL Blood Urea Nitrogen 17 MG/DL 15 MG/DL 15 MG/DL Creatinine 0.80 MG/DL 0.76 MG/DL 0.73 MG/DL Random Glucose 123 MG/DL 94 MG/DL 103 MG/DL Calcium Level 9.3 MG/DL 8.9 MG/DL 8.5 MG/DL Sodium Level 120 MEQ/L 123 MEQ/L 123 MEQ/L Potassium Level 4.0 MEQ/L 4.0 MEQ/L 4.2 MEQ/L Chloride Level 86 MEQ/L 89 MEQ/L 92 MEQ/L Carbon Dioxide Level 24.5 MEQ/L 24.0 MEQ/L 23.5 MEQ/L Anion Gap 10 MEQ/L 10 MEQ/L 8 MEQ/L Estimat Glomerular Filtration Rate 95 ML/MIN 101 ML/MIN 106 ML/MIN Hemoglobin A1c 5.7 % Ammonia 24 MCMOL/L Triglycerides Level 60 MG/DL Cholesterol Level 146 MG/DL LDL Cholesterol 53 MG/DL HDL Cholesterol 80.8 MG/DL Cholesterol/HDL Ratio 1.80 RATIO Test 07/27/17 18:25 07/28/17 09:13 Sodium Level 123 MEQ/L White Blood Count 7.6 TH/MM3 Red Blood Count 3.67 MIL/MM3 Hemoglobin 10.8 GM/DL Hematocrit 30.9 % Mean Corpuscular Volume 84.0 FL Mean Corpuscular Hemoglobin 29.4 PG Mean Corpuscular Hemoglobin Concent 35.0 % Red Cell Distribution Width 13.2 % Platelet Count 313 TH/MM3 Mean Platelet Volume 6.8 FL Neutrophils (%) (Auto) 76.0 % Lymphocytes (%) (Auto) 11.2 % Monocytes (%) (Auto) 11.5 % Eosinophils (%) (Auto) 0.9 % Basophils (%) (Auto) 0.4 % Neutrophils # (Auto) 5.8 TH/MM3 Lymphocytes # (Auto) 0.9 TH/MM3 Monocytes # (Auto) 0.9 TH/MM3 Eosinophils # (Auto) 0.1 TH/MM3 Basophils # (Auto) 0.0 TH/MM3 CBC Comment DIFF FINAL Differential Comment Imaging Last Impressions Chest X-Ray 07/27/17 0000 Signed Impressions: Service Date/Time: Thursday, July 27, 2017 10:24 - CONCLUSION: Abnormal chest x-ray. CT scan is suggested No prior studies for comparison. Pipo Hernandez MD FACR Chest CT 07/27/17 0000 Signed Impressions: Service Date/Time: Thursday, July 27, 2017 13:21 - CONCLUSION: 1. CT confirms the presence of a dilated esophagus with luminal debris. 2. In addition, there are findings of prior surgery with a ring of small surgical manjit at the GE junction and an additional linear wrist manjit extending from the GE junction to the lesser curvature of the stomach. 3. Mild atelectatic changes posteriorly in the right hemithorax and medially adjacent to the dilated esophagus. Jose Eason MD Knee X-Ray 07/26/17 0000 Signed Impressions: Service Date/Time: Wednesday, July 26, 2017 09:22 - CONCLUSION: 1. No acute fracture or dislocation. Loc Melendez MD Head CT 07/26/17 0000 Signed Impressions: Service Date/Time: Wednesday, July 26, 2017 10:08 - CONCLUSION: No acute disease. Jc Prescott Jr., MD Objective Remarks GENERAL: Arousable but very lethargic today SKIN: Warm and dry. HEAD: Atraumatic. Normocephalic. EYES: Pupils equal and round. No scleral icterus. No injection or drainage. ENT: No nasal bleeding or discharge. Mucous membranes pink and moist. NECK: Trachea midline. No JVD. Supple CARDIOVASCULAR: Regular rate and rhythm. S1-S2 no S3 or S4 RESPIRATORY: No accessory muscle use. Clear to auscultation. Breath sounds equal bilaterally. GASTROINTESTINAL: Abdomen soft, non-tender, nondistended. Hepatic and splenic margins not palpable. MUSCULOSKELETAL: Extremities without clubbing, cyanosis, or edema. No obvious deformities. NEUROLOGICAL: Awake and alert. No obvious cranial nerve deficits. Motor grossly within normal limits. 4 out of 5 muscle strength in the arms and legs. Normal speech. PSYCHIATRIC: INAppropriate mood and affect; insight and judgment ABnormal. Medications and IVs Current Medications Carbamazepine (TEGretol CHEW) 100 mg BID PO Last administered on 07/27/17at 21: 39; Start 07/25/17 at 21:00 Diphenhydramine HCl (Benadryl) 25 mg HS PRN PO INSOMNIA; Start 07/25/17 at 18: 30 Levothyroxine Sodium (Synthroid) 75 mcg DAILY@0600 PO Last administered on 07/27at 05:27; Start 07/26/17 at 06:00 Tamsulosin HCl (Flomax) 0.4 mg DAILY PO ; Start 07/26/17 at 09:00 Trazodone HCl (Desyrel) 50 mg HS PO Last administered on 07/27/17at 21:38; Start 07/25/17 at 21:00 Lorazepam (Ativan) 1 mg Q6H PRN PO MODERATE TO SEVERE ANXIETY; Start 07/25/17 at 18:30 Lorazepam (Ativan Inj) 1 mg Q6H PRN IM MODERATE TO SEVERE ANXIETY; Start at 18:30 Lorazepam (Ativan) 0.5 mg Q12H PRN PO MODERATE TO SEVERE ANXIETY; Start at 18:30 Lorazepam (Ativan Inj) 0.5 mg Q12H PRN IM MODERATE TO SEVERE ANXIETY; Start 05/30 at 18:30 Acetaminophen (Tylenol) 650 mg Q4H PRN PO Pain 1-5 or Temp >101F Last administered on 07/25/17at 21:11; Start 07/25/17 at 18:30 Magnesium Hydroxide (Milk Of Magnesia Liq) 30 ml DAILY PRN PO MILD CONSTIPATION ; Start 07/25/17 at 18:30 Al Hydrox/Mg Hydrox/Simethicone (Mag-Al Plus Susp Liq) 30 ml Q6H PRN PO DYSPEPSIA; Start 07/25/17 at 18:30 Nicotine (Habitrol 21 Mg Patch.24 Hr) 1 patch DAILY T-DERMAL ; Start 07/26/17 at 09:00 Docusate Sodium (Colace) 100 mg BID PRN PO MOD CONSTIPATION; Start 07/26/17 at 09:45 Ondansetron HCl (Zofran Inj) 4 mg Q6HR PRN IV PUSH NAUSEA Last administered on 07/26/17at 13:00; Start 07/26/17 at 11:00 Sodium Chloride 1,000 ml @ 84 mls/hr [id number] IV Last administered on at 22:00; Start 07/26/17 at 11:00 Sodium Chloride 1,000 ml @ 999 mls/hr BOLUS ONCE IV Last administered on 07/27at 10:00; Start 07/27/17 at 10:00; Stop 07/27/17 at 11:00; Status DC Sodium Chloride (Sodium Chloride) 1 gm ONCE ONCE PO Last administered on at 10:00; Start 07/27/17 at 10:00; Stop 07/27/17 at 10:01; Status DC Sodium Chloride (Sodium Chloride) 1 gm DAILY PO ; Start 07/28/17 at 09:00 Padimate O (Chapstick) 1 applic UNSCH PRN TOPICAL chapped lips; Start 07/27/17 at 15:30 Sodium Chloride 1,000 ml @ 999 mls/hr BOLUS ONCE IV Last administered on 07/27at 21:30; Start 07/27/17 at 20:00; Stop 07/27/17 at 21:00; Status DC A/P Problem List: (1) Lethargy ICD Code: R53.83 - Other fatigue (2) Delirium due to another medical condition ICD Code: F05 - Delirium due to known physiological condition (3) Dementia in other diseases classified elsewhere with behavioral disturbance ICD Code: F02.81 - Dementia in other diseases classified elsewhere with behavioral disturbance Status: Acute (4) Hyponatremia ICD Code: E87.1 - Hypo-osmolality and hyponatremia (5) Bipolar disorder ICD Code: F31.9 - Bipolar disorder, unspecified Assessment and Plan 72-year-old male with acute onset of lethargy and weakness admitted on medical psych unit, medical team following for ongoing medical management. Lethargy Weakness - Recent fall but this is likely secondary to weakness rather than the cause. - Brain CT shows no acute disease or bleeding, knee x-rays negative - ABG with no acute reason for AMS/lethargy - ammonia level WNL - hyponatremia on BMP, likely the cause of lethargy. CBC with anemia which is not new. - swallow evaluation due to lethargy Hyponatremia - NA 120-->123 - Patient does not appear fluid overloaded - Will give NS bolus and continue IV NS@84ml/hr, NA tabs 1gm PO TID if able to take, check NA levels Q6hrs, fluid restrictions, Will consult nephrology. 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 Consider stopping tegretol Seizure disorder - No witnessed seizures - This could potentially be an etiology for his weakness and change in mental status - We'll consider EEG based on preliminary workup findings - Correct Na Benign prostatic hypertrophy - Hypothyroidism - These conditions are within normal limits on recent evaluations - Continue baseline management for these Cough - Concern for aspiration, afebrile with no WBC rise - Swallow evaluation, advance diet per ST - Chest x-ray reviewed and abnormal. No PNA or fluid overload Dilated esophagus. pt with h/o achalasia. Consult GI for eval. DVT prophylaxis - SCDs, recent fall Discussed with patient, nurse Discharge Planning PENDING PSYCHIATRIC CLEARANCE Pipo Boyce DO Jul 28, 2017 09:45
[2017-07-28 10:16] LABS: BICARBONATE 22.8 MEQ/L (21.0-32.0); CALCIUM 8.5 MG/DL (8.5-10.1); CREATININE 0.71 MG/DL (0.60-1.30)
[2017-07-28] MEDS: NICOTINE 21 MG/24 HR PATCH T-DERMAL SCH (11:13)
[2017-07-28] MEDS: TAMSULOSIN HCL 0.4 MG CAP PO SCH ×3 (11:13→12:04)
[2017-07-28] MEDS: SODIUM CHLOR 0.9% 1000 ML INJ 1,000 ML IV SCH ×2 (11:25→23:06)
[2017-07-28] MEDS ORDERED: TOLVAPTAN 15 MG TAB PO ONE (13:00)
--- NOTE | 2017-07-28 13:00 | PD.CONS ---
HPI Service Nephrology Consult Requested By Reason for Consult Hyponatremia Primary Care Physician Unknown History of Present Illness We were reconsulted for this patient for evaluation of worsening hyponatremia. He was just transferred to psych inpatient unit from medical side, he was treated for hyponatremia that was determined to be due to Tegretol use. He has had little food intake, has swallowing issues and is being seen by GI. He was on NaCl tabs, 1g po daily, is now on 1 g TID. He is awake, not in distress, drinking water and on 0.9% IVF at 84ml/hr. He is a full code. (Hortencia Saldivar) Review of Systems Constitutional: DENIES: Fatigue Cardiovascular: DENIES: Chest pain, Dyspnea on Exertion, Lower Extremity Edema Gastrointestinal: COMPLAINS OF: Difficulty Swallowing (Hortencia Saldivar) Past Family Social History Allergies: Coded Allergies: divalproex sodium (Unverified Allergy, Severe, 06/02/17) olanzapine (Unverified Allergy, Severe, 06/02/17) methylphenidate (Unverified Allergy, Unknown, 06/02/17) Past Medical History Hyponatremia achalasia Bipolar disorder Dementia History of BPH Hypothyroidism Hx hyponatremia Past Surgical History Appendectomy Reported Medications Reviewed Active Ordered Medications Current Medications Medications (Trade) Dose Ordered Sig/Kerry Route Start Time Stop Time Status Last Admin (Benadryl) 25 mg HS PRN PO 07/25/17 18:30 (Synthroid) 75 mcg DAILY@0600 PO 07/26/17 06:00 07/27/17 05:27 (Flomax) 0.4 mg DAILY PO 07/26/17 09:00 07/28/17 11:30 (Desyrel) 50 mg HS PO 07/25/17 21:00 07/27/17 21:38 (Ativan) 1 mg Q6H PRN PO 07/25/17 18:30 (Ativan Inj) 1 mg Q6H PRN IM 07/25/17 18:30 (Ativan) 0.5 mg Q12H PRN PO 07/25/17 18:30 (Ativan Inj) 0.5 mg Q12H PRN IM 07/25/17 18:30 (Tylenol) 650 mg Q4H PRN PO 07/25/17 18:30 07/25/17 21:11 (Milk Of Magnesia Liq) 30 ml DAILY PRN PO 07/25/17 18:30 (Mag-Al Plus Susp Liq) 30 ml Q6H PRN PO 07/25/17 18:30 (Habitrol 21 Mg Patch.24 Hr) 1 patch DAILY T-DERMAL 07/26/17 09:00 (Colace) 100 mg BID PRN PO 07/26/17 09:45 (Zofran Inj) 4 mg Q6HR PRN IV PUSH 07/26/17 11:00 07/26/17 13:00 Sodium Chloride 1,000 ml @ 84 mls/hr [id number] IV 07/26/17 11:00 07/28/17 11:25 (Chapstick) 1 applic UNSCH PRN TOPICAL 07/27/17 15:30 07/28/17 11:06 (Sodium Chloride) 1 gm TID PO 07/28/17 13:00 (Abilify) 5 mg HS PO 07/28/17 21:00 UNV Family History Non contributory Social History Unclear his normal living situation Denies tobacco abuse No ETOH (Hortencia Saldivar) Physical Exam Vital Signs Vital Signs Date Time Temp Pulse Resp B/P (MAP) Pulse Ox O2 Delivery O2 Flow Rate FiO2 07/28/17 06:42 98.1 67 16 139/74 (95) 96 07/27/17 18:28 98.0 69 16 137/82 (100) 97 Physical Exam Disheveled Elderly male Dry mucous membranes Awake, alert and follows commands. Restrained x 4 extremities S1/S2, RRR, no murmurs Abd flat No extremity edema Laboratory Laboratory Tests Test 07/27/17 14:30 07/27/17 18:25 07/28/17 09:13 Blood Urea Nitrogen 15 10 Creatinine 0.73 0.71 Random Glucose 103 93 Calcium Level 8.5 8.5 Sodium Level 123 123 124 Potassium Level 4.2 3.9 Chloride Level 92 91 Carbon Dioxide Level 23.5 22.8 Anion Gap 8 10 Estimat Glomerular Filtration Rate 106 109 White Blood Count 7.6 Red Blood Count 3.67 Hemoglobin 10.8 Hematocrit 30.9 Mean Corpuscular Volume 84.0 Mean Corpuscular Hemoglobin 29.4 Mean Corpuscular Hemoglobin Concent 35.0 Red Cell Distribution Width 13.2 Platelet Count 313 Mean Platelet Volume 6.8 Neutrophils (%) (Auto) 76.0 Lymphocytes (%) (Auto) 11.2 Monocytes (%) (Auto) 11.5 Eosinophils (%) (Auto) 0.9 Basophils (%) (Auto) 0.4 Neutrophils # (Auto) 5.8 Lymphocytes # (Auto) 0.9 Monocytes # (Auto) 0.9 Eosinophils # (Auto) 0.1 Basophils # (Auto) 0.0 CBC Comment DIFF FINAL Differential Comment (Hortencia Saldivar) Result Diagram: 07/28/1791207/28/17912 Imaging Last 72 hours Impressions Chest X-Ray 07/27/17 0000 Signed Impressions: Service Date/Time: Thursday, July 27, 2017 10:24 - CONCLUSION: Abnormal chest x-ray. CT scan is suggested No prior studies for comparison. Pipo Hernandez MD FACR Chest CT 07/27/17 0000 Signed Impressions: Service Date/Time: Thursday, July 27, 2017 13:21 - CONCLUSION: 1. CT confirms the presence of a dilated esophagus with luminal debris. 2. In addition, there are findings of prior surgery with a ring of small surgical manjit at the GE junction and an additional linear wrist manjit extending from the GE junction to the lesser curvature of the stomach. 3. Mild atelectatic changes posteriorly in the right hemithorax and medially adjacent to the dilated esophagus. Jose Eason MD Knee X-Ray 07/26/17 0000 Signed Impressions: Service Date/Time: Wednesday, July 26, 2017 09:22 - CONCLUSION: 1. No acute fracture or dislocation. Loc Melendez MD Knee X-Ray 07/26/17 0000 Signed Impressions: Service Date/Time: Wednesday, July 26, 2017 09:35 - CONCLUSION: 1. No acute fracture or dislocation. Loc Melendez MD Head CT 07/26/17 0000 Signed Impressions: Service Date/Time: Wednesday, July 26, 2017 10:08 - CONCLUSION: No acute disease. Jc Prescott Jr., MD (Hortencia Saldivar) Assessment and Plan Problem List: (1) Hyponatremia ICD Codes: E87.1 - Hypo-osmolality and hyponatremia Plan: Chronic, acutely worse Due to Tegretol, avoid this medication, he received one dose since admission On IVF, continue for now if NPO Needs solid food intake, EGD is planned per GI. On Salt tabs TID, 1g Give a dose of tolvaptan and repeat labs Fluid restriction not necessary at this time (2) Bipolar disorder ICD Codes: F31.9 - Bipolar disorder, unspecified Status: Chronic Plan: Psych management (Hortencia Saldivar) Assessment and Plan patient was seen and examined. SIADH, try Tolvaptan. (Sherman Mix MD) Problem Qualifiers (1) Bipolar disorder: Qualified Codes: F31.61 - Bipolar disorder, current episode mixed, mild Hortencia Saldivar Jul 28, 2017 13:00 Sherman Mix MD Jul 29, 2017 15:28
[2017-07-28] MEDS ORDERED: PILL SPLITTER OTHER PRN (14:00)
--- NOTE | 2017-07-28 14:08 | HHI.GIFU ---
Subjective Remarks Pt resting in bed. Alert and oriented x 2. Follows commands. Has been NPO. (Carrie Shrestha) Objective Vitals I&O Vital Signs Date Time Temp Pulse Resp B/P (MAP) Pulse Ox O2 Delivery O2 Flow Rate FiO2 07/28/17 06:42 98.1 67 16 139/74 (95) 96 07/27/17 18:28 98.0 69 16 137/82 (100) 97 I/O 07/27/17 07/27/17 07/27/17 07/28/17 07/28/17 07/28/17 07:00 15:00 23:00 07:00 15:00 23:00 Intake Total 35 ml 480 ml 240 ml Balance 35 ml 480 ml 240 ml Intake Oral 35 ml 480 ml 240 ml # Voids 3 2 3 Laboratory Laboratory Tests Test 07/27/17 14:30 07/27/17 18:25 07/28/17 09:13 Blood Urea Nitrogen 15 10 Creatinine 0.73 0.71 Random Glucose 103 93 Calcium Level 8.5 8.5 Sodium Level 123 123 124 Potassium Level 4.2 3.9 Chloride Level 92 91 Carbon Dioxide Level 23.5 22.8 Anion Gap 8 10 Estimat Glomerular Filtration Rate 106 109 White Blood Count 7.6 Red Blood Count 3.67 Hemoglobin 10.8 Hematocrit 30.9 Mean Corpuscular Volume 84.0 Mean Corpuscular Hemoglobin 29.4 Mean Corpuscular Hemoglobin Concent 35.0 Red Cell Distribution Width 13.2 Platelet Count 313 Mean Platelet Volume 6.8 Neutrophils (%) (Auto) 76.0 Lymphocytes (%) (Auto) 11.2 Monocytes (%) (Auto) 11.5 Eosinophils (%) (Auto) 0.9 Basophils (%) (Auto) 0.4 Neutrophils # (Auto) 5.8 Lymphocytes # (Auto) 0.9 Monocytes # (Auto) 0.9 Eosinophils # (Auto) 0.1 Basophils # (Auto) 0.0 CBC Comment DIFF FINAL Differential Comment Imaging Last Impressions Chest X-Ray 07/27/17 0000 Signed Impressions: Service Date/Time: Thursday, July 27, 2017 10:24 - CONCLUSION: Abnormal chest x-ray. CT scan is suggested No prior studies for comparison. Pipo Hernandez MD FACR Chest CT 07/27/17 0000 Signed Impressions: Service Date/Time: Thursday, July 27, 2017 13:21 - CONCLUSION: 1. CT confirms the presence of a dilated esophagus with luminal debris. 2. In addition, there are findings of prior surgery with a ring of small surgical manjit at the GE junction and an additional linear wrist manjit extending from the GE junction to the lesser curvature of the stomach. 3. Mild atelectatic changes posteriorly in the right hemithorax and medially adjacent to the dilated esophagus. Jose Eason MD Knee X-Ray 07/26/17 0000 Signed Impressions: Service Date/Time: Wednesday, July 26, 2017 09:22 - CONCLUSION: 1. No acute fracture or dislocation. Loc Melendez MD Head CT 07/26/17 0000 Signed Impressions: Service Date/Time: Wednesday, July 26, 2017 10:08 - CONCLUSION: No acute disease. Jc Prescott Jr., MD Physical Exam HEENT: Normocephalic; atraumatic CHEST: Even/unlabored CARDIAC: RRR ABDOMEN: Soft, nondistended, nontender; bowel sounds active EXTREMITIES: No clubbing, cyanosis, or edema. SKIN: Normal; no rash; no jaundice. 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 c/o bolus sensation. CT chest indicated he has had gastric surgery, dilated esophagus with luminal debris (2/15) Per RN pt would be unable to tolerate procedure because he has been hallucinating. At time of my exam pt seems more oriented. He knows his name and where he is, does not know the date. He follows commands. Responds to questions appropriately. Anemia noted, normocytic, stable. No signs of GIB. Hyponatremia, sodium 124, sodium chloride tabs, nephrology following. Will reorder Barium swallow, may be best done in the middle of the day when pt is more oriented and can follow commands. Speech therapy recommended mechanical soft, chopped meat with gravy, and thin liquids. PLAN - Barium swallow - Diet per ST - Supportive care - Further recommendations to follow based on clinical course Pt has been seen and examined by myself and Dr. aWrd and this note is written on his behalf (Carrie Shrestha) Physician Comments Patient seen and examined Agree with above Continue with current supportive care Monitor labs Await barium swallow (Wei Ward MD) Carrie Shrestha Jul 28, 2017 14:08 Wei Ward MD Jul 28, 2017 19:10
[2017-07-28] MEDS: SODIUM CHLORIDE 1 GRAM TAB PO SCH ×2 (14:48→18:43)
--- NOTE | 2017-07-28 15:34 | PD.CONS ---
Consult Service Palliative Care Consult Requested By Dr Interiano . Primary Care Physician Unknown Reason for Consultation a. To assist with evaluation and management of symptoms including: Anxiety, confusion b. To assist medical decision maker(s) with: better understanding of current medical conditions; weighing benefits/burdens of medical treatment options; making medical treatment decisions. HPI History of Present Illness This pt was admitted 07/25/17 for bipolar disorder, increasing lethargy. Patient also reported to have a fall. CT brain negative for acute process. Thyroid labs noted to be WNL from 07/08/17. Baseline reported to be active, ambulatory and able to provide some history. * EEG ordered to r/o seizures . Hyponatremic sodium 123. Knee imaging neg for fx. CXR notes either an large dilated esophagus present or air in mediastinum. Abnormal imaging CT scan recommended. * Chest CT= chest CT confirms presence of dilated esophagus with luminal debris in addition findings of prior surgery with a ring of small surgical manjit the GE junction and linear wrist manjit extending from the GE junction to the lesser curvature of the stomach. Mild atelectatic changes posterior right hemithorax. * Psychiatry Dr Ohara evaluated 07/26 for 2nd opinion: Patient confused unable to fully participate. Poor insight. * Status post ST evaluation and cleared patient for mechanical soft diet. GI was consulted for possible dysphagia. GI Notes dysphasia appears chronic patient reports history of achalasia, complains of bolus sensation. Ordered for barium swallow evaluation. * Continued with sodium supplementation, fluid restriction. Nephrology consulted. Nephrology notes hypo-osmolality, hyponatremia. Avoid Tegretol if possible. Continue salt tablets supplementation. Ordered for dose tolvaptan repeat labs. Fluid restriction not indicated. * GI reordered barium swallow eval, pt unable to tolerate initial attempt due to confusion. Patient with recent admission 07/10 through 07/18 for hyponatremia on medical unit , was then discharged back to psychiatric unit. Current psych admission is continuation from 07/10 initial admission. Patient also with admission 06/02 through 06/24 for [place] act for threatening to kill himself or other people. He was a poor historian, confused. Patient with multiple prior admissions for AMS, bilpolar, etc. Function/Cognitive Trajectory Reported to be ambulatory, feeds self and previously able to make needs known. Does not appear to have ever lived independently 2/2 psychiatric conditions based on review of available records, has always lived with his parents or in a nursing home setting. Review of Systems ROS Limitations: Poor Historian, Other (confusion) Constitutional: DENIES: Change in appetite, Pain Ears, nose, mouth, throat: DENIES: Throat pain Respiratory: DENIES: Shortness of breath Gastrointestinal: DENIES: Difficulty Swallowing Neurologic: DENIES: Headache Psychiatric: COMPLAINS OF: Anxiety, Confusion, DENIES: Hallucinations Past Family Social History Coded Allergies: divalproex sodium (Unverified Allergy, Severe, 06/02/17) olanzapine (Unverified Allergy, Severe, 06/02/17) methylphenidate (Unverified Allergy, Unknown, 06/02/17) Past Medical History Seizure disorder Benign prostatic hypertrophy Hypothyroidism Bipolar disorder Dementia? . Past Surgical History gastric surgery Appendectomy . Reported Medications Risperdal (Risperidone) 1 Mg Tab 2 Mg PO BID@0800,1600 Seroquel (Quetiapine Fumarate) 400 Mg Tab 400 Mg PO HS Carbamazepine 100 Mg Chew 100 Mg PO BID Diphenhydramine (Diphenhydramine HCl) 25 Mg Cap 25 Mg PO HS PRN Levothyroxine (Levothyroxine Sodium) 75 Mcg Tab 75 Mcg PO DAILY Flomax (Tamsulosin HCl) 0.4 Mg Cap 0.4 Mg PO DAILY [Lactulose Liq] 30 ML Syrp 30 Ml PO DAILY PRN 30 Days Trazodone (Trazodone HCl) 50 Mg Tab 50 Mg PO HS Docusate Sodium 100 Mg Cap 100 Mg PO BID PRN . Current Medications Medications (Trade) Dose Ordered Sig/Kerry Route Start Time Stop Time Status Last Admin (Benadryl) 25 mg HS PRN PO 07/25/17 18:30 (Synthroid) 75 mcg DAILY@0600 PO 07/26/17 06:00 07/27/17 05:27 (Flomax) 0.4 mg DAILY PO 07/26/17 09:00 07/28/17 11:30 (Desyrel) 50 mg HS PO 07/25/17 21:00 07/27/17 21:38 (Ativan) 1 mg Q6H PRN PO 07/25/17 18:30 (Ativan Inj) 1 mg Q6H PRN IM 07/25/17 18:30 (Ativan) 0.5 mg Q12H PRN PO 07/25/17 18:30 (Ativan Inj) 0.5 mg Q12H PRN IM 07/25/17 18:30 (Tylenol) 650 mg Q4H PRN PO 07/25/17 18:30 07/25/17 21:11 (Milk Of Magnesia Liq) 30 ml DAILY PRN PO 07/25/17 18:30 (Mag-Al Plus Susp Liq) 30 ml Q6H PRN PO 07/25/17 18:30 (Habitrol 21 Mg Patch.24 Hr) 1 patch DAILY T-DERMAL 07/26/17 09:00 (Colace) 100 mg BID PRN PO 07/26/17 09:45 (Zofran Inj) 4 mg Q6HR PRN IV PUSH 07/26/17 11:00 07/26/17 13:00 Sodium Chloride 1,000 ml @ 84 mls/hr [id number] IV 07/26/17 11:00 07/28/17 11:25 (Chapstick) 1 applic UNSCH PRN TOPICAL 07/27/17 15:30 07/28/17 11:06 (Sodium Chloride) 1 gm TID PO 07/28/17 13:00 07/28/17 14:48 (Abilify) 2.5 mg HS PO 07/28/17 21:00 (Pill Splitter) 1 ea UNSCH PRN OTHER 07/28/17 14:00 Family History Cancer in sister. BIPOLAR Substance Use Tobacco: Nonsmoker Alcohol: No alcohol Prescription med abuse: None reported Illicits: None reported . Psychosocial History Lives in a group SNF home for persons with emotional/mental disorders. Receives Social Security disability. Originally from [place] per prior psych evaluation. Previous suicide attempt in 1983. Sister , 2 brothers per medical record. Per Review of medical records patient has lived in a nursing home for many years since at least 2003 per documentation, additional documentation indicates patient has has not ever functioned very independently (2003). Brother indicates pt has lived in [facility] setting much of his adult life. Previously able to drive, make his needs known. . Spiritual/Cultural Factors pentecostal . Living Will: Never completed Health Care Surrogate: Never completed Durable Power of Python Architect: Never completed Ethical and Legal Issues Patient with long history of psychiatric illness. Previous [place] acts. Appears his orientation fluctuates as well as capacity. He does not currently have insight into conditions or illness not able to make his own decisions. Does not appear he has a healthcare surrogate or appointed guardian. Given this his 2 brothers would be appropriate proxy per [place] statutes. Physical Exam Vital Signs Date Time Temp Pulse Resp B/P (MAP) Pulse Ox O2 Delivery O2 Flow Rate FiO2 07/28/17 06:42 98.1 67 16 139/74 (95) 96 07/27/17 18:28 98.0 69 16 137/82 (100) 97 07/28/17 07/29/17 19:00 07:00 # Voids 2 Exam CONSTITUTIONAL/GENERAL: thin frail appearing pt, anxious at times TUBES/LINES/DRAINS:PIV upper extremity. SKIN: No jaundice, rashes, or lesions.skin warm/dry HEAD: Atraumatic. Normocephalic. EYES: Pupils equal and round and reactive. Extraocular motions intact. No scleral icterus. No injection or drainage. Fundi not examined. ENT: Hearing grossly normal. Nose without bleeding or purulent drainage. Throat without visible erythema, exudates, masses, or lesions. +poor dentition NECK: Trachea midline. Supple, nontender. No palpable thyroid enlargement or nodularity. CARDIOVASCULAR: Regular rate and rhythm without murmur. No JVD. Peripheral pulses symmetric. RESPIRATORY/CHEST: Symmetric, unlabored respirations. On room air. Clear to auscultation. GASTROINTESTINAL: Abdomen soft, flat non-tender, nondistended. No palpable masses. Bowel sounds present. GENITOURINARY: Without palpable bladder distension. MUSCULOSKELETAL: Extremities without clubbing, cyanosis, or edema. No joint tenderness or effusion noted. LYMPHATICS: No palpable cervical or supraclavicular adenopathy. NEUROLOGICAL: Awake and alert. Oriented x2 (,family, hospital) Confused to age, reason for hospitalization. Very little insight into hospitalization. Repetitive speech . follows some commands. Moving all extremities PSYCHIATRIC: mildly anxious at times, no apparent hallucinations . Diagnostic Tests Laboratory Laboratory Tests Test 07/26/17 11:20 07/26/17 12:21 07/27/17 07:26 07/27/17 14:30 Blood Gas Puncture Site RT RADIAL Blood Gas Patient Temperature 98.6 Blood Gas HCO3 24 mmol/L (22-26) Blood Gas Base Excess 0.4 mmol/L (-2-2) Blood Gas Oxygen Saturation 96 % (90-100) Arterial Blood pH 7.46 (7.380-7.420) Arterial Blood Partial Pressure CO2 34 mmHg (38-42) Arterial Blood Partial Pressure O2 91 mmHG (61-120) Arterial Blood Oxygen Content 14.3 Vol % (12.0-20.0) Arterial Blood Carboxyhemoglobin 1.1 % (0-4) Arterial Blood Methemoglobin 0.7 % (0-2) Blood Gas Hemoglobin 10.5 G/DL (12.0-16.0) Blood Gas Inspired Oxygen 21 % White Blood Count 8.5 TH/MM3 (4.0-11.0) 8.3 TH/MM3 (4.0-11.0) Red Blood Count 3.73 MIL/MM3 (4.50-5.90) 3.70 MIL/MM3 (4.50-5.90) Hemoglobin 11.6 GM/DL (13.0-17.0) 10.9 GM/DL (13.0-17.0) Hematocrit 31.4 % (39.0-51.0) 30.8 % (39.0-51.0) Mean Corpuscular Volume 84.2 FL (80.0-100.0) 83.4 FL (80.0-100.0) Mean Corpuscular Hemoglobin 31.1 PG (27.0-34.0) 29.6 PG (27.0-34.0) Mean Corpuscular Hemoglobin Concent 37.0 % (32.0-36.0) 35.4 % (32.0-36.0) Red Cell Distribution Width 12.9 % (11.6-17.2) 13.0 % (11.6-17.2) Platelet Count 329 TH/MM3 (150-450) 301 TH/MM3 (150-450) Mean Platelet Volume 6.9 FL (7.0-11.0) 6.9 FL (7.0-11.0) Blood Urea Nitrogen 17 MG/DL (7-18) 15 MG/DL (7-18) 15 MG/DL (7-18) Creatinine 0.80 MG/DL (0.60-1.30) 0.76 MG/DL (0.60-1.30) 0.73 MG/DL (0.60-1.30) Random Glucose 123 MG/DL (74-106) 94 MG/DL (74-106) 103 MG/DL (74-106) Calcium Level 9.3 MG/DL (8.5-10.1) 8.9 MG/DL (8.5-10.1) 8.5 MG/DL (8.5-10.1) Sodium Level 120 MEQ/L (136-145) 123 MEQ/L (136-145) 123 MEQ/L (136-145) Potassium Level 4.0 MEQ/L (3.5-5.1) 4.0 MEQ/L (3.5-5.1) 4.2 MEQ/L (3.5-5.1) Chloride Level 86 MEQ/L (98-107) 89 MEQ/L (98-107) 92 MEQ/L (98-107) Carbon Dioxide Level 24.5 MEQ/L (21.0-32.0) 24.0 MEQ/L (21.0-32.0) 23.5 MEQ/L (21.0-32.0) Anion Gap 10 MEQ/L (5-15) 10 MEQ/L (5-15) 8 MEQ/L (5-15) Estimat Glomerular Filtration Rate 95 ML/MIN (>89) 101 ML/MIN (>89) 106 ML/MIN (>89) Hemoglobin A1c 5.7 % (4.3-6.0) Ammonia 24 MCMOL/L (11-32) Triglycerides Level 60 MG/DL (42-150) Cholesterol Level 146 MG/DL (120-200) LDL Cholesterol 53 MG/DL (0-99) HDL Cholesterol 80.8 MG/DL (40.0-60.0) Cholesterol/HDL Ratio 1.80 RATIO Test 07/27/17 18:25 07/28/17 09:13 Sodium Level 123 MEQ/L (136-145) 124 MEQ/L (136-145) White Blood Count 7.6 TH/MM3 (4.0-11.0) Red Blood Count 3.67 MIL/MM3 (4.50-5.90) Hemoglobin 10.8 GM/DL (13.0-17.0) Hematocrit 30.9 % (39.0-51.0) Mean Corpuscular Volume 84.0 FL (80.0-100.0) Mean Corpuscular Hemoglobin 29.4 PG (27.0-34.0) Mean Corpuscular Hemoglobin Concent 35.0 % (32.0-36.0) Red Cell Distribution Width 13.2 % (11.6-17.2) Platelet Count 313 TH/MM3 (150-450) Mean Platelet Volume 6.8 FL (7.0-11.0) Neutrophils (%) (Auto) 76.0 % (16.0-70.0) Lymphocytes (%) (Auto) 11.2 % (9.0-44.0) Monocytes (%) (Auto) 11.5 % (0.0-8.0) Eosinophils (%) (Auto) 0.9 % (0.0-4.0) Basophils (%) (Auto) 0.4 % (0.0-2.0) Neutrophils # (Auto) 5.8 TH/MM3 (1.8-7.7) Lymphocytes # (Auto) 0.9 TH/MM3 (1.0-4.8) Monocytes # (Auto) 0.9 TH/MM3 (0-0.9) Eosinophils # (Auto) 0.1 TH/MM3 (0-0.4) Basophils # (Auto) 0.0 TH/MM3 (0-0.2) CBC Comment DIFF FINAL Differential Comment Blood Urea Nitrogen 10 MG/DL (7-18) Creatinine 0.71 MG/DL (0.60-1.30) Random Glucose 93 MG/DL (74-106) Calcium Level 8.5 MG/DL (8.5-10.1) Potassium Level 3.9 MEQ/L (3.5-5.1) Chloride Level 91 MEQ/L (98-107) Carbon Dioxide Level 22.8 MEQ/L (21.0-32.0) Anion Gap 10 MEQ/L (5-15) Estimat Glomerular Filtration Rate 109 ML/MIN (>89) Result Diagram: 07/28/17 0913 07/28/17 0913 Imaging Last Impressions Chest X-Ray 07/27/17 0000 Signed Impressions: Service Date/Time: Thursday, July 27, 2017 10:24 - CONCLUSION: Abnormal chest x-ray. CT scan is suggested No prior studies for comparison. Pipo Hernandez MD FACR Chest CT 07/27/17 0000 Signed Impressions: Service Date/Time: Thursday, July 27, 2017 13:21 - CONCLUSION: 1. CT confirms the presence of a dilated esophagus with luminal debris. 2. In addition, there are findings of prior surgery with a ring of small surgical manjit at the GE junction and an additional linear wrist manjit extending from the GE junction to the lesser curvature of the stomach. 3. Mild atelectatic changes posteriorly in the right hemithorax and medially adjacent to the dilated esophagus. Jose Eason MD Knee X-Ray 07/26/17 0000 Signed Impressions: Service Date/Time: Wednesday, July 26, 2017 09:22 - CONCLUSION: 1. No acute fracture or dislocation. Loc Melendez MD Head CT 07/26/17 0000 Signed Impressions: Service Date/Time: Wednesday, July 26, 2017 10:08 - CONCLUSION: No acute disease. Jc Prescott Jr., MD Patient/Family Conference Present at Family Conference: Tito Family Conference Time (mins): 20 (minutes) Family Conference Location: Telephone Issues Discussed: Spoke w pt brother on phone, discussion included: * Palliative care role, purpose, approach * Additional medical, psychosocial, history * Patients general health, functional status, and cognitive changes in the months leading up to the current hospitalization * Patient/family understanding of the current medical problems * Patient/family understanding of prognosis * Patients goals of care as best understood from advance directives and/or conversations and/or values * Current medical treatment options and benefits/burdens of those options * legal decision makers/[place] statutes * Questions answered to the best of my ability * Palliative care contact information provided Brother indicates the patient had been stable, doing well up until last March when he could not return to his former SNF, and his medications were changed around at [facility]. He indicates patient is psychiatric illness had been very stable with very little casino change attendant the 20 years prior to that time. Much review with him about multiple medical issues that are compounding psychiatric issues which will further compound medical issues and the possibility the patient may continue to decline while we try to treat conditions. He indicates he and his brother will be working together in decision-making though he has generally been serving as a primary spokesperson. For now he would like to continue trying to treat underlying medical conditions and improve psychiatric condition to return patient to baseline stable status last fall. Assessment and Plan Disease Oriented Problem List: (1) Schizoaffective disorder (2) Bipolar disorder, current episode mixed, severe, with psychotic features (3) Hyponatremia (4) Delirium due to another medical condition (5) Hypothyroid (6) BPH (benign prostatic hyperplasia) Symptom Scale: (1) Confusion 0-10 Scale: Unable to quantify (2) Dysphagia 0-10 Scale: Unable to quantify Pertinent Non-Medical Issues Psychosocial:Lives in a group SNF home for persons with emotional/mental disorders. Receives Social Security disability. Originally from [place] per prior psych evaluation. Previous suicide attempt in 1983. Sister , 2 brothers per medical record. Per Review of medical records patient has lived in a nursing home for many years since at least 2003 per documentation, additional documentation indicates patient has has not ever functioned very independently (2003). Brother indicates pt has lived in SNF setting much of his adult life. Previously able to drive, make his needs known. Spiritual:pentecostal Legal:Patient with long history of psychiatric illness. Previous [place] acts. Appears his orientation fluctuates as well as capacity. He does not currently have insight into conditions or illness not able to make his own decisions. Does not appear he has a healthcare surrogate or appointed guardian. Given this his 2 brothers would be appropriate proxy per [place] statutes Ethical issues impacting care: Important Contacts Tito Catherine [phone] . Prognosis This patient has had multiple ongoing hospitalizations in the past few months for confusion and altered mental status and hyponatremia. He has had decreased oral intake. I suspect his psychiatric conditions and inability to always adhere to psychiatric regimen affects his medical conditions which then in turn affects his ability to further adhere to psychiatric regimen. If the hyponatremia, and ongoing confusion and altered mental status are not able to be medically corrected he remains very high risk for continued debility and decline. . Code Status: Full Code Plan * Legal decision maker:Patient with long history of psychiatric illness. Previous [place] acts. Appears his orientation fluctuates as well as capacity. He does not currently have insight into conditions or illness not able to make his own decisions. Does not appear he has a healthcare surrogate or appointed guardian. Given this his 2 brothers would be appropriate proxy per [place] statutes * Goals: Goals are aggressive. Patient brother Tito indicates that until this past fall patient had been very well maintained on his usual medication regimen and when he moved facilities and his medication regimen was changed he has not been the same since. Brother would like to see continued attempts to maximize medical and psychiatric conditions to improve patient condition back to baseline. * CODE STATUS: Full code by default * SYMPTOMS: --Confusion/AMS/anxiety-long history psychiatric illness, + hospitalizations. Compounded by hyponatremia. Has been followed by psychiatry multiple adjustments made during hospitalization. Nephrology now following to assist with hyponatremia. -- dysphagia/malnutrition- Hx esophageal/GI procedure. Poor oral intake, ongoing ST eval. Barium swallow eval pending, GI following. Thin, poor intake. No prior weights available for comparison. Rec. nutritional supplement when able to take PO * Palliative care will continue to follow during hospital course as condition evolves, to assist patient/decision-maker with understanding of medical conditions, weighing benefits/burdens of treatment options, for clarification of goals of treatment. Additionally will assist with any symptoms of palliative concern Thank you for the opportunity to participate in the care of Mr. Catherine. Attestation To help prompt me to consider important information that might be impacting today's encounter and assessment, information from prior notes written by myself or my colleagues may have been "brought forward" into today's note. My signature on this note, however, is an attestation that I personally performed the exam, history, and/or decision-making noted today, and, unless otherwise indicated, the interactions with patient, family, and staff as well as the review of records all occurred today. I also attest that the listed assessment and stated plan reflect my best clinical judgment today based on the combination of historical information, prior notes, and today's exam/ interactions. When time spent is documented, it refers only to time spent today by the signer, or if indicated, combined time spent today by collaborating physician/nurse practitioner. Leona Hernandez Jul 28, 2017 15:34
--- NOTE | 2017-07-28 17:33 | HHI.PYPN ---
Subjective Remarks Patient seen for follow-up, chart reviewed. Discussion nursing staff reported the patient had EEG deferred as patient was unable to tolerate, had a negative CT scan results, and patient was too lethargic for participation in physical therapy. Patient was found lying in hospital bed to be slightly more alert and cooperative in interview. Patient is alert and oriented only to person and place, time and situation. Patient continued to have some delayed responses during interview and was somewhat preservative on his hobby of reading World War II books. Patient read limited history into the circumstances brought into the hospital because prior history of treatment regimens in the past. Patient reports feeling "good" denies any perceptual disturbances or delusions at this time. Review of Systems Except as stated in HPI: all other systems reviewed are Neg Mental Status Examination Appearance: Disheveled Consciousness: Lethargic Orientation: Person, Place Speech: Hesitant, Slow Language: Other Fund of Knowledge: Inadequate Attention and Concentration: Inadequate Memory: Impaired Mood: Other Affect: Blunt Thought Process & Associations: Disorganized Thought Content: Other ([place]) Hallucination Type: Other (Unable to assess at this time due to patient's disorientation) Delusion Type: Other (Unable to assess at this time due to patient's disorientation) Suicidal Ideation: No Suicidal Plan: No Suicidal Intention: No Homicidal Ideation: No Homicidal Plan: No Homicidal Intention: No Insight: Poor Judgment: Poor Results Labs Labs reviewed Test 07/27/17 18:25 07/28/17 09:13 Sodium Level 123 MEQ/L 124 MEQ/L White Blood Count 7.6 TH/MM3 Red Blood Count 3.67 MIL/MM3 Hemoglobin 10.8 GM/DL Hematocrit 30.9 % Mean Corpuscular Volume 84.0 FL Mean Corpuscular Hemoglobin 29.4 PG Mean Corpuscular Hemoglobin Concent 35.0 % Red Cell Distribution Width 13.2 % Platelet Count 313 TH/MM3 Mean Platelet Volume 6.8 FL Neutrophils (%) (Auto) 76.0 % Lymphocytes (%) (Auto) 11.2 % Monocytes (%) (Auto) 11.5 % Eosinophils (%) (Auto) 0.9 % Basophils (%) (Auto) 0.4 % Neutrophils # (Auto) 5.8 TH/MM3 Lymphocytes # (Auto) 0.9 TH/MM3 Monocytes # (Auto) 0.9 TH/MM3 Eosinophils # (Auto) 0.1 TH/MM3 Basophils # (Auto) 0.0 TH/MM3 CBC Comment DIFF FINAL Differential Comment Blood Urea Nitrogen 10 MG/DL Creatinine 0.71 MG/DL Random Glucose 93 MG/DL Calcium Level 8.5 MG/DL Potassium Level 3.9 MEQ/L Chloride Level 91 MEQ/L Carbon Dioxide Level 22.8 MEQ/L Anion Gap 10 MEQ/L Estimat Glomerular Filtration Rate 109 ML/MIN Vitals/IOs Vital Signs Date Time Temp Pulse Resp B/P (MAP) Pulse Ox O2 Delivery O2 Flow Rate FiO2 07/28/17 06:42 98.1 67 16 139/74 (95) 96 Assessment & Plan Problem List: (1) Delirium due to another medical condition ICD Codes: F05 - Delirium due to known physiological condition (2) Hyponatremia ICD Codes: E87.1 - Hypo-osmolality and hyponatremia (3) Bipolar disorder ICD Codes: F31.9 - Bipolar disorder, unspecified (4) Dementia in other diseases classified elsewhere with behavioral disturbance ICD Codes: F02.81 - 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 We will review consent for treatment with patient's health care surrogate who is patient 's brother with plan to start Abilify 2.5 mg p.o. at bedtime with upward titration as needed. Continue recommendations per medical team. Continue to monitor her behavior. This was planning in progress. Justification for Cont. Inpt. At risk for further decompensation if at lower level of care. Discharge Planning To be determined Alessandro Interiano MD Jul 28, 2017 17:33
[2017-07-28 18:00] VITALS: BP 122/66; PULSE 63; RESP 16; TEMP 98.6; O2SAT 97
[2017-07-28] MEDS ORDERED: ARIPiprazole 5 MG TAB PO SCH (21:00)
[2017-07-28] MEDS: diphenhydrAMINE HCL 25 MG CAP PO PRN (21:39)
[2017-07-28] MEDS: ARIPiprazole 5 MG TAB PO SCH (21:39)
[2017-07-28] MEDS: traZODone HCL 50 MG TAB PO SCH (21:39)
[2017-07-29] MEDS: LEVOTHYROXINE SODIUM 75 MCG TAB PO SCH (06:05)
[2017-07-29 06:15] VITALS: BP 116/70; PULSE 59; RESP 16; TEMP 97.9; O2SAT 99
[2017-07-29 08:24] LABS: AUTOMATED NEUTROPHIL # 4.5 TH/MM3 (1.8-7.7); BASOPHIL % 0.4 % (0.0-2.0); EOSINOPHIL # 0.1 TH/MM3 (0-0.4); HEMATOCRIT 28.5 % (39.0-51.0); HEMOGLOBIN 10.1 GM/DL (13.0-17.0); LYMPH % 12.5 % (9.0-44.0); LYMPHOCYTE # 0.8 TH/MM3 (1.0-4.8); MEAN CELL VOLUME 84.1 FL (80.0-100.0); MEAN CORPUSCULAR HEMOGLOBIN 29.8 PG (27.0-34.0); MEAN CORPUSCULAR HGB CONC 35.4 % (32.0-36.0); MEAN PLATELET VOLUME 7.2 FL (7.0-11.0); MONO % 11.3 % (0.0-8.0); MONOCYTE # 0.7 TH/MM3 (0-0.9); NEUT % 74.8 % (16.0-70.0); PLATELET COUNT 278 TH/MM3 (150-450); RED BLOOD COUNT 3.39 MIL/MM3 (4.50-5.90)
[2017-07-29 08:47] LABS: ALBUMIN 3.1 GM/DL (3.4-5.0); AST (GOT) 37 U/L (15-37); BICARBONATE 24.9 MEQ/L (21.0-32.0); BLOOD UREA NITROGEN 11 MG/DL (7-18); CALCIUM 8.5 MG/DL (8.5-10.1); CHLORIDE 92 MEQ/L (98-107); CREATININE 0.71 MG/DL (0.60-1.30); GLOMERULAR FILTRATION RATE 109 ML/MIN (>89); GLUCOSE,RANDOM 79 MG/DL (74-106); MAGNESIUM 1.7 MG/DL (1.5-2.5); SODIUM (NA) 125 MEQ/L (136-145)
[2017-07-29 08:58] LABS: ALKALINE PHOSPHATASE 67 U/L (45-117); ALT (GPT) 44 U/L (12-78); FREE T4 1.04 NG/DL (0.76-1.46); PHOSPHORUS 2.8 MG/DL (2.5-4.9); TOTAL BILIRUBIN ADULT 0.6 MG/DL (0.2-1.0); TOTAL PROTEIN 5.8 GM/DL (6.4-8.2)
[2017-07-29] MEDS: SODIUM CHLORIDE 1 GRAM TAB PO SCH ×4 (09:00→20:39)
[2017-07-29] MEDS: NICOTINE 21 MG/24 HR PATCH T-DERMAL SCH (09:00)
[2017-07-29] MEDS: TAMSULOSIN HCL 0.4 MG CAP PO SCH (09:00)
--- NOTE | 2017-07-29 09:44 | HHI.PYPN ---
Subjective Remarks Patient seen in his room with nurse Dionicio, chart reviewed, discussed with nurse. Patient continues quite weak and pale distraught very needy. He does recognize me. Continues to ask for help with going to hold my hand. Throughout all he does continue to recognize me and speak appropriately with me. His sodium level drawn this morning remains low at 125. Patient compliant medications. For now continue treatment Review of Systems Except as stated in HPI: all other systems reviewed are Neg Mental Status Examination Appearance: Disheveled Consciousness: Lethargic Orientation: Person, Place Speech: Hesitant, Slow Language: Other Fund of Knowledge: Inadequate Attention and Concentration: Inadequate Memory: Impaired Mood: Other Affect: Blunt Thought Process & Associations: Disorganized Thought Content: Other ([place]) Hallucination Type: Other (Unable to assess at this time due to patient's disorientation) Delusion Type: Other (Unable to assess at this time due to patient's disorientation) Suicidal Ideation: No Suicidal Plan: No Suicidal Intention: No Homicidal Ideation: No Homicidal Plan: No Homicidal Intention: No Insight: Poor Judgment: Poor Results Labs Test 07/29/17 06:50 White Blood Count 6.0 TH/MM3 Red Blood Count 3.39 MIL/MM3 Hemoglobin 10.1 GM/DL Hematocrit 28.5 % Mean Corpuscular Volume 84.1 FL Mean Corpuscular Hemoglobin 29.8 PG Mean Corpuscular Hemoglobin Concent 35.4 % Red Cell Distribution Width 13.0 % Platelet Count 278 TH/MM3 Mean Platelet Volume 7.2 FL Neutrophils (%) (Auto) 74.8 % Lymphocytes (%) (Auto) 12.5 % Monocytes (%) (Auto) 11.3 % Eosinophils (%) (Auto) 1.0 % Basophils (%) (Auto) 0.4 % Neutrophils # (Auto) 4.5 TH/MM3 Lymphocytes # (Auto) 0.8 TH/MM3 Monocytes # (Auto) 0.7 TH/MM3 Eosinophils # (Auto) 0.1 TH/MM3 Basophils # (Auto) 0.0 TH/MM3 CBC Comment DIFF FINAL Differential Comment Blood Urea Nitrogen 11 MG/DL Creatinine 0.71 MG/DL Random Glucose 79 MG/DL Total Protein 5.8 GM/DL Albumin 3.1 GM/DL Calcium Level 8.5 MG/DL Phosphorus Level 2.8 MG/DL Magnesium Level 1.7 MG/DL Alkaline Phosphatase 67 U/L Aspartate Amino Transf (AST/SGOT) 37 U/L Alanine Aminotransferase (ALT/SGPT) 44 U/L Total Bilirubin 0.6 MG/DL Sodium Level 125 MEQ/L Potassium Level 3.8 MEQ/L Chloride Level 92 MEQ/L Carbon Dioxide Level 24.9 MEQ/L Anion Gap 8 MEQ/L Estimat Glomerular Filtration Rate 109 ML/MIN Free Thyroxine 1.04 NG/DL Thyroid Stimulating Hormone 3rd Gen 3.030 uIU/ML Vitals/IOs Vital Signs Date Time Temp Pulse Resp B/P (MAP) Pulse Ox O2 Delivery O2 Flow Rate FiO2 07/29/17 06:15 97.9 59 16 116/70 (85) 99 Intake and Output 07/29/17 07/29/17 07/30/17 08:00 16:00 00:00 Intake Total 0 ml Balance 0 ml Assessment & Plan Problem List: (1) Delirium due to another medical condition ICD Codes: F05 - Delirium due to known physiological condition (2) Hyponatremia ICD Codes: E87.1 - Hypo-osmolality and hyponatremia (3) Bipolar disorder ICD Codes: F31.9 - Bipolar disorder, unspecified Status: Chronic (4) Dementia in other diseases classified elsewhere with behavioral disturbance ICD Codes: F02.81 - 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 There appears to be helplessness neediness developing in him at this time. Patient's sodium level still remains low. For now continue treatment Justification for Cont. Inpt. This time patient will decompensate if placed on the lower level of care Discharge Planning Considering the patient's very fragile condition at this time placement remains problematic Problem Qualifiers (1) Bipolar disorder: Qualified Codes: F31.61 - Bipolar disorder, current episode mixed, mild Tyler Batista MD Jul 29, 2017 09:44
--- NOTE | 2017-07-29 10:08 | RADRPT ---
EXAM DATE/TIME: 07/29/2017 09:38 [facility] COMPARISON: CT THORAX W/O CONTRAST, July 27, 2017, 13:21. INDICATIONS : Dysphagia FLUORO TIME: 1.0 minutes IMAGE COUNT: 1 CONTRAST: Dose as prescribed by speech pathologist. MEDICAL HISTORY : unresponsive SURGICAL HISTORY : unresponsive ENCOUNTER: Initial ACUITY: 1 day PAIN SCORE: Non-responsive. LOCATION: Bilateral neck FINDINGS: A modified barium swallow was performed with speech pathology. Patient was given a variety of liquids to swallow. There is mild laryngeal penetration without aspiration. Minimal osteophytic encroachment is seen on the posterior esophagus at the C6-C7 level. CONCLUSION: Negative for aspiration. Complete esophagram is pending Pipo Hernandez MD FACR on July 29, 2017 at 10:03 Board Certified Radiologist. This report was verified electronically.
[2017-07-29] MEDS: SODIUM CHLOR 0.9% 1000 ML INJ 1,000 ML IV SCH (10:30)
--- NOTE | 2017-07-29 10:55 | RADRPT ---
EXAM DATE/TIME: 07/29/2017 09:38 [facility] COMPARISON: No previous studies available for comparison. INDICATIONS : Dysphagia, dilated esophagus. FLUORO TIME: 1.9 minutes IMAGE COUNT: 8 CONTRAST: 1. Liquid E-Z Paque Barium Sulfate (60% w/v, 41% w.w) MEDICAL HISTORY : non responsive SURGICAL HISTORY : non responsive ENCOUNTER: Subsequent ACUITY: 1 day PAIN SCORE: Non-responsive. LOCATION: Bilateral neck FINDINGS: Examination limited by patient condition. There is enlarged dilated esophagus that does contain resi dual food stuff. Surgical clips are seen at the GE junction. There may be mass present at the GE ju nction as well. The esophagus only will empty only in the upright position. CONCLUSION: Probable long-standing either achalasia or partial obstruction with surgical clips in the GE junction. There is the suggestion of the mass at the GE junction as well. Direct visualizat ion is suggested. Examination Limited by the patient's ability to cooperate . Pipo Hernandez MD FACR on July 29, 2017 at 10:50 Board Certified Radiologist. This report was verified electronically.
--- NOTE | 2017-07-29 12:26 | HHI.PR ---
Subjective Remarks Follow up visit for AMS, fall, and hyponatremia. Patient seen and examined with nurse at bedside, he is asleep but awakens. He is able to state his full name and , but not oriented to time or place. Discussed with nurse who states patient has been coughing since yesterday, cough nonproductive. Patient has also not been eating much or drinking much. 2-15 NO NEW COMPLAINTS ALLOWED BLOOD WORK TODAY DW RN LABS PENDING INCREASE NACL TABS TO TID 2-16 taking NACL TABS SODIUM 125 TODAY HAD SWALLOW EVALUATION TODAY FOR DYSPHAGIA DW RN AND PT MORE ALERT Objective Vitals Vital Signs Date Time Temp Pulse Resp B/P (MAP) Pulse Ox O2 Delivery O2 Flow Rate FiO2 07/29/17 06:15 97.9 59 16 116/70 (85) 99 07/28/17 18:00 98.6 63 16 122/66 (84) 97 I/O 07/28/17 07/28/17 07/28/17 07/29/17 07/29/17 07/29/17 07:00 15:00 23:00 07:00 15:00 23:00 Intake Total 0 ml 0 ml Balance 0 ml 0 ml Intake Oral 0 ml 0 ml # Voids 3 2 6 2 Result Diagram: 07/29/17 0650 07/29/17 0650 Other Results Laboratory Tests Test 07/27/17 07:26 07/27/17 14:30 07/27/17 18:25 07/28/17 09:13 White Blood Count 8.3 TH/MM3 7.6 TH/MM3 Red Blood Count 3.70 MIL/MM3 3.67 MIL/MM3 Hemoglobin 10.9 GM/DL 10.8 GM/DL Hematocrit 30.8 % 30.9 % Mean Corpuscular Volume 83.4 FL 84.0 FL Mean Corpuscular Hemoglobin 29.6 PG 29.4 PG Mean Corpuscular Hemoglobin Concent 35.4 % 35.0 % Red Cell Distribution Width 13.0 % 13.2 % Platelet Count 301 TH/MM3 313 TH/MM3 Mean Platelet Volume 6.9 FL 6.8 FL Blood Urea Nitrogen 15 MG/DL 15 MG/DL 10 MG/DL Creatinine 0.76 MG/DL 0.73 MG/DL 0.71 MG/DL Random Glucose 94 MG/DL 103 MG/DL 93 MG/DL Calcium Level 8.9 MG/DL 8.5 MG/DL 8.5 MG/DL Sodium Level 123 MEQ/L 123 MEQ/L 123 MEQ/L 124 MEQ/L Potassium Level 4.0 MEQ/L 4.2 MEQ/L 3.9 MEQ/L Chloride Level 89 MEQ/L 92 MEQ/L 91 MEQ/L Carbon Dioxide Level 24.0 MEQ/L 23.5 MEQ/L 22.8 MEQ/L Anion Gap 10 MEQ/L 8 MEQ/L 10 MEQ/L Estimat Glomerular Filtration Rate 101 ML/MIN 106 ML/MIN 109 ML/MIN Neutrophils (%) (Auto) 76.0 % Lymphocytes (%) (Auto) 11.2 % Monocytes (%) (Auto) 11.5 % Eosinophils (%) (Auto) 0.9 % Basophils (%) (Auto) 0.4 % Neutrophils # (Auto) 5.8 TH/MM3 Lymphocytes # (Auto) 0.9 TH/MM3 Monocytes # (Auto) 0.9 TH/MM3 Eosinophils # (Auto) 0.1 TH/MM3 Basophils # (Auto) 0.0 TH/MM3 CBC Comment DIFF FINAL Differential Comment Test 07/29/17 06:50 White Blood Count 6.0 TH/MM3 Red Blood Count 3.39 MIL/MM3 Hemoglobin 10.1 GM/DL Hematocrit 28.5 % Mean Corpuscular Volume 84.1 FL Mean Corpuscular Hemoglobin 29.8 PG Mean Corpuscular Hemoglobin Concent 35.4 % Red Cell Distribution Width 13.0 % Platelet Count 278 TH/MM3 Mean Platelet Volume 7.2 FL Neutrophils (%) (Auto) 74.8 % Lymphocytes (%) (Auto) 12.5 % Monocytes (%) (Auto) 11.3 % Eosinophils (%) (Auto) 1.0 % Basophils (%) (Auto) 0.4 % Neutrophils # (Auto) 4.5 TH/MM3 Lymphocytes # (Auto) 0.8 TH/MM3 Monocytes # (Auto) 0.7 TH/MM3 Eosinophils # (Auto) 0.1 TH/MM3 Basophils # (Auto) 0.0 TH/MM3 CBC Comment DIFF FINAL Differential Comment Blood Urea Nitrogen 11 MG/DL Creatinine 0.71 MG/DL Random Glucose 79 MG/DL Total Protein 5.8 GM/DL Albumin 3.1 GM/DL Calcium Level 8.5 MG/DL Phosphorus Level 2.8 MG/DL Magnesium Level 1.7 MG/DL Alkaline Phosphatase 67 U/L Aspartate Amino Transf (AST/SGOT) 37 U/L Alanine Aminotransferase (ALT/SGPT) 44 U/L Total Bilirubin 0.6 MG/DL Sodium Level 125 MEQ/L Potassium Level 3.8 MEQ/L Chloride Level 92 MEQ/L Carbon Dioxide Level 24.9 MEQ/L Anion Gap 8 MEQ/L Estimat Glomerular Filtration Rate 109 ML/MIN Free Thyroxine 1.04 NG/DL Thyroid Stimulating Hormone 3rd Gen 3.030 uIU/ML Imaging Last Impressions Modified Barium Swallow 07/29/17 0000 Signed Impressions: Service Date/Time: Saturday, July 29, 2017 09:38 - CONCLUSION: Negative for aspiration. Complete esophagram is pending Pipo Hernandez MD FACR Barium Swallow X-Ray 07/29/17 0000 Signed Impressions: Service Date/Time: Saturday, July 29, 2017 09:38 - CONCLUSION: Probable long-standing either achalasia or partial obstruction with surgical clips in the GE junction. There is the suggestion of the mass at the GE junction as well. Direct visualization is suggested. Examination Limited by the patient's ability to cooperate . Pipo Hernandez MD FACR Chest X-Ray 07/27/17 0000 Signed Impressions: Service Date/Time: Thursday, July 27, 2017 10:24 - CONCLUSION: Abnormal chest x-ray. CT scan is suggested No prior studies for comparison. Pipo Hernandez MD FACR Chest CT 07/27/17 0000 Signed Impressions: Service Date/Time: Thursday, July 27, 2017 13:21 - CONCLUSION: 1. CT confirms the presence of a dilated esophagus with luminal debris. 2. In addition, there are findings of prior surgery with a ring of small surgical manjit at the GE junction and an additional linear wrist manjit extending from the GE junction to the lesser curvature of the stomach. 3. Mild atelectatic changes posteriorly in the right hemithorax and medially adjacent to the dilated esophagus. Jose Eason MD Knee X-Ray 07/26/17 0000 Signed Impressions: Service Date/Time: Wednesday, July 26, 2017 09:22 - CONCLUSION: 1. No acute fracture or dislocation. Loc Melendez MD Head CT 07/26/17 0000 Signed Impressions: Service Date/Time: Wednesday, July 26, 2017 10:08 - CONCLUSION: No acute disease. Jc Prescott Jr., MD Objective Remarks GENERAL: Arousable but very lethargic today SKIN: Warm and dry. HEAD: Atraumatic. Normocephalic. EYES: Pupils equal and round. No scleral icterus. No injection or drainage. ENT: No nasal bleeding or discharge. Mucous membranes pink and moist. NECK: Trachea midline. No JVD. Supple CARDIOVASCULAR: Regular rate and rhythm. S1-S2 no S3 or S4 RESPIRATORY: No accessory muscle use. Clear to auscultation. Breath sounds equal bilaterally. GASTROINTESTINAL: Abdomen soft, non-tender, nondistended. Hepatic and splenic margins not palpable. MUSCULOSKELETAL: Extremities without clubbing, cyanosis, or edema. No obvious deformities. NEUROLOGICAL: Awake and alert. No obvious cranial nerve deficits. Motor grossly within normal limits. 4 out of 5 muscle strength in the arms and legs. Normal speech. PSYCHIATRIC: INAppropriate mood and affect; insight and judgment ABnormal. Procedures NONE Medications and IVs Current Medications Carbamazepine (TEGretol CHEW) 100 mg BID PO Last administered on 07/27/17at 21: 39; Start 07/25/17 at 21:00; Stop 07/28/17 at 12:48; Status DC Diphenhydramine HCl (Benadryl) 25 mg HS PRN PO INSOMNIA Last administered on at 21:39; Start 07/25/17 at 18:30 Levothyroxine Sodium (Synthroid) 75 mcg DAILY@0600 PO Last administered on 07/29at 06:05; Start 07/26/17 at 06:00 Tamsulosin HCl (Flomax) 0.4 mg DAILY PO Last administered on 07/28/17at 11:30; Start 07/26/17 at 09:00 Trazodone HCl (Desyrel) 50 mg HS PO Last administered on 07/28/17at 21:39; Start 07/25/17 at 21:00 Lorazepam (Ativan) 1 mg Q6H PRN PO MODERATE TO SEVERE ANXIETY; Start 07/25/17 at 18:30 Lorazepam (Ativan Inj) 1 mg Q6H PRN IM MODERATE TO SEVERE ANXIETY; Start at 18:30 Lorazepam (Ativan) 0.5 mg Q12H PRN PO MODERATE TO SEVERE ANXIETY; Start at 18:30 Lorazepam (Ativan Inj) 0.5 mg Q12H PRN IM MODERATE TO SEVERE ANXIETY; Start 05/30 at 18:30 Acetaminophen (Tylenol) 650 mg Q4H PRN PO Pain 1-5 or Temp >101F Last administered on 07/25/17at 21:11; Start 07/25/17 at 18:30 Magnesium Hydroxide (Milk Of Magnesia Liq) 30 ml DAILY PRN PO MILD CONSTIPATION ; Start 07/25/17 at 18:30 Al Hydrox/Mg Hydrox/Simethicone (Mag-Al Plus Susp Liq) 30 ml Q6H PRN PO DYSPEPSIA; Start 07/25/17 at 18:30 Nicotine (Habitrol 21 Mg Patch.24 Hr) 1 patch DAILY T-DERMAL ; Start 07/26/17 at 09:00 Docusate Sodium (Colace) 100 mg BID PRN PO MOD CONSTIPATION; Start 07/26/17 at 09:45 Ondansetron HCl (Zofran Inj) 4 mg Q6HR PRN IV PUSH NAUSEA Last administered on 07/26/17at 13:00; Start 07/26/17 at 11:00 Sodium Chloride 1,000 ml @ 84 mls/hr [id number] IV Last administered on at 10:30; Start 07/26/17 at 11:00 Sodium Chloride 1,000 ml @ 999 mls/hr BOLUS ONCE IV Last administered on 07/27at 10:00; Start 07/27/17 at 10:00; Stop 07/27/17 at 11:00; Status DC Sodium Chloride (Sodium Chloride) 1 gm ONCE ONCE PO Last administered on at 10:00; Start 07/27/17 at 10:00; Stop 07/27/17 at 10:01; Status DC Sodium Chloride (Sodium Chloride) 1 gm DAILY PO Last administered on 07/28/17at 11:57; Start 07/28/17 at 09:00; Stop 07/28/17 at 09:44; Status DC Padimate O (Chapstick) 1 applic UNSCH PRN TOPICAL chapped lips Last administered on 07/28/17at 11:06; Start 07/27/17 at 15:30 Sodium Chloride 1,000 ml @ 999 mls/hr BOLUS ONCE IV Last administered on 07/27at 21:30; Start 07/27/17 at 20:00; Stop 07/27/17 at 21:00; Status DC Sodium Chloride (Sodium Chloride) 1 gm TID PO Last administered on 07/28/17at 18 :43; Start 07/28/17 at 13:00 Aripiprazole (Abilify) 5 mg HS PO ; Start 07/28/17 at 21:00; Stop 07/28/17 at 21 :00; Status DC Tolvaptan (Samsca) 15 mg ONCE ONCE PO ; Start 07/28/17 at 13:00; Stop 07/28/17 at 13:48; Status DC Aripiprazole (Abilify) 2.5 mg HS PO Last administered on 07/28/17at 21:39; Start 07/28/17 at 21:00 Miscellaneous (Pill Splitter) 1 ea UNSCH PRN OTHER SEE LABEL COMMENTS; Start at 14:00 A/P Problem List: (1) Lethargy ICD Code: R53.83 - Other fatigue (2) Delirium due to another medical condition ICD Code: F05 - Delirium due to known physiological condition (3) Dementia in other diseases classified elsewhere with behavioral disturbance ICD Code: F02.81 - Dementia in other diseases classified elsewhere with behavioral disturbance Status: Acute (4) Hyponatremia ICD Code: E87.1 - Hypo-osmolality and hyponatremia (5) Bipolar disorder ICD Code: F31.9 - Bipolar disorder, unspecified Status: Chronic Assessment and Plan 72-year-old male with acute onset of lethargy and weakness admitted on medical psych unit, medical team following for ongoing medical management. Lethargy Weakness - Recent fall but this is likely secondary to weakness rather than the cause. - Brain CT shows no acute disease or bleeding, knee x-rays negative - ABG with no acute reason for AMS/lethargy - ammonia level WNL - hyponatremia on BMP, likely the cause of lethargy. CBC with anemia which is not new. - swallow evaluation due to lethargy Hyponatremia - NA 120-->125 - Patient does not appear fluid overloaded - Will give NS bolus and continue IV NS@84ml/hr, NA tabs 1gm PO TID if able to take, check NA levels Q6hrs, fluid restrictions, Will consult nephrology. 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 Consider stopping tegretol Seizure disorder - No witnessed seizures - This could potentially be an etiology for his weakness and change in mental status - We'll consider EEG based on preliminary workup findings - Correct Na Benign prostatic hypertrophy - Hypothyroidism - These conditions are within normal limits on recent evaluations - Continue baseline management for these Cough - Concern for aspiration, afebrile with no WBC rise - Swallow evaluation, advance diet per ST - Chest x-ray reviewed and abnormal. No PNA or fluid overload Dilated esophagus. pt with h/o achalasia. Consult GI for eval. DYSPHAGIA- GI IS FOLLOWING DVT prophylaxis - SCDs, recent fall Discussed with patient, nurse Discharge Planning PENDING PSYCHIATRIC CLEARANCE Problem Qualifiers (1) Bipolar disorder: Qualified Codes: F31.61 - Bipolar disorder, current episode mixed, mild Pipo Boyce DO Jul 29, 2017 12:26
[2017-07-29] MEDS: TOLVAPTAN 15 MG TAB PO ONE ×2 (14:00→15:14)
--- NOTE | 2017-07-29 14:06 | HHI.NPPN ---
Subjective Interval History He was not given Tolvaptan due to inability to swallow. May have mass stomach/ esophagus per Barium Swallow. (Hortencia Saldivar) Review of Systems Ears, Nose, & Throat ENT Remarks dysphagia (Hortencia Saldivar) Objective Data Data Vital Signs Date Time Temp Pulse Resp B/P (MAP) Pulse Ox O2 Delivery O2 Flow Rate FiO2 07/29/17 06:15 97.9 59 16 116/70 (85) 99 07/28/17 18:00 98.6 63 16 122/66 (84) 97 (oHrtencia Saldivar) -: 07/29/17 0650 07/29/17 0650 Imaging Last 72 hours Impressions Modified Barium Swallow 07/29/17 0000 Signed Impressions: Service Date/Time: Saturday, July 29, 2017 09:38 - CONCLUSION: Negative for aspiration. Complete esophagram is pending Pipo Hernandez MD FACR Barium Swallow X-Ray 07/29/17 0000 Signed Impressions: Service Date/Time: Saturday, July 29, 2017 09:38 - CONCLUSION: Probable long-standing either achalasia or partial obstruction with surgical clips in the GE junction. There is the suggestion of the mass at the GE junction as well. Direct visualization is suggested. Examination Limited by the patient's ability to cooperate . Pipo Hernandez MD FACR Chest X-Ray 07/27/17 0000 Signed Impressions: Service Date/Time: Thursday, July 27, 2017 10:24 - CONCLUSION: Abnormal chest x-ray. CT scan is suggested No prior studies for comparison. Pipo Hernandez MD FACR Chest CT 07/27/17 0000 Signed Impressions: Service Date/Time: Thursday, July 27, 2017 13:21 - CONCLUSION: 1. CT confirms the presence of a dilated esophagus with luminal debris. 2. In addition, there are findings of prior surgery with a ring of small surgical manjit at the GE junction and an additional linear wrist manjit extending from the GE junction to the lesser curvature of the stomach. 3. Mild atelectatic changes posteriorly in the right hemithorax and medially adjacent to the dilated esophagus. Jose Eason MD (Hortencia Saldivar) Physical Exam General Appearance: Well Developed, No Acute Distress, Comfortable (Hortencia Saldivar B. EVENING ANCHOR) Eyes Eye Exam: Pupils Equal (Hortencia Saldivar B. EVENING ANCH[employer]) Throat Throat Exam: Oral Mucosa [place] & Moist (Hortencia Saldivar [employer]. [employer]ING ANCH[employer]) Pulmonary Resp Exam: Clear Bilaterally, Breath Sounds Equal (Bull Saldivaron B. EVENING ANCHOR) Cardiology CV Exam: Regular, Normal Sinus Rhythm (Hortencia Saldivar [employer]. [employer]) Gastrointestinal/Abdomen GI Exam: Soft, Non-Tender (Hortencia Saldivar [employer]. [employer]) Musculoskeletal MS Exam: Joints Intact, Normal Tone (Hortencia Saldivar B. EVENING ANCH[employer]) Integumentary Skin Exam: Warm, Dry (Hortencia Saldivar [employer]. EVEN[employer]CHOR) Extremeties Extremities Exam: No Edema, Pedal Pulses Palpable (Bull Saldivaron B. EVENING ANCHOR) Neurologic Neuro Exam: Alert, Awake, Speech Clear (Bull Saldivaron B. EVENING ANCHOR) Psychiatric Psych Exam: Appropriate Responses (Hortencia Saldivar EVENING ANCHOR) Assessment/Plan Discussed Condition With: Patient Electrolyte Assessment: Hyponatremia Problem List: (1) Hyponatremia ICD Codes: E87.1 - Hypo-osmolality and hyponatremia Plan: Chronic, acutely worse SIAHD due to Tegretol, avoid this medication, he did receive one dose since admission On IVF, change to D5NS @ 50, continue for now because NPO and glucose levels are relatively low Needs solid food intake, however has achalasia and GI is following On Salt tabs TID, 1g Unable to take tolvaptan Free water restriction advised, 1500 ml per day (2) Bipolar disorder ICD Codes: F31.9 - Bipolar disorder, unspecified Status: Chronic Plan: Psych management (3) Dysphagia ICD Codes: R13.10 - Dysphagia, unspecified Plan: GI following (Hortencia Saldivar B. EVENING ANCHOR) Plan patient was seen and examined. Agree with above assessment and plan (Sherman Mix MD) Problem Qualifiers (1) Bipolar disorder: Qualified Codes: F31.61 - Bipolar disorder, current episode mixed, mild Hortencia Saldivar B. [employer]ING ANCHOR Jul 29, 2017 14:06 Sherman Mix MD Jul 29, 2017 15:41
[2017-07-29] MEDS: DEXT 5%-NACL 0.9% 1000 ML INJ 1,000 ML IV SCH (15:15)
--- NOTE | 2017-07-29 15:23 | HHI.GIFU ---
Subjective Remarks Resting in the bed Mild confusion, but talkative and is hoping to get out of the hospital same Afebrile Oral cavity clean, no obvious drooling (Norma Victor) Objective Vitals I&O Vital Signs Date Time Temp Pulse Resp B/P (MAP) Pulse Ox O2 Delivery O2 Flow Rate FiO2 07/29/17 06:15 97.9 59 16 116/70 (85) 99 07/28/17 18:00 98.6 63 16 122/66 (84) 97 I/O 07/28/17 07/28/17 07/28/17 07/29/17 07/29/17 07/29/17 07:00 15:00 23:00 07:00 15:00 23:00 Intake Total 0 ml 0 ml Balance 0 ml 0 ml Intake Oral 0 ml 0 ml # Voids 3 2 6 2 Laboratory Laboratory Tests Test 07/29/17 06:50 White Blood Count 6.0 Red Blood Count 3.39 Hemoglobin 10.1 Hematocrit 28.5 Mean Corpuscular Volume 84.1 Mean Corpuscular Hemoglobin 29.8 Mean Corpuscular Hemoglobin Concent 35.4 Red Cell Distribution Width 13.0 Platelet Count 278 Mean Platelet Volume 7.2 Neutrophils (%) (Auto) 74.8 Lymphocytes (%) (Auto) 12.5 Monocytes (%) (Auto) 11.3 Eosinophils (%) (Auto) 1.0 Basophils (%) (Auto) 0.4 Neutrophils # (Auto) 4.5 Lymphocytes # (Auto) 0.8 Monocytes # (Auto) 0.7 Eosinophils # (Auto) 0.1 Basophils # (Auto) 0.0 CBC Comment DIFF FINAL Differential Comment Blood Urea Nitrogen 11 Creatinine 0.71 Random Glucose 79 Total Protein 5.8 Albumin 3.1 Calcium Level 8.5 Phosphorus Level 2.8 Magnesium Level 1.7 Alkaline Phosphatase 67 Aspartate Amino Transf (AST/SGOT) 37 Alanine Aminotransferase (ALT/SGPT) 44 Total Bilirubin 0.6 Sodium Level 125 Potassium Level 3.8 Chloride Level 92 Carbon Dioxide Level 24.9 Anion Gap 8 Estimat Glomerular Filtration Rate 109 Free Thyroxine 1.04 Thyroid Stimulating Hormone 3rd Gen 3.030 Imaging Last Impressions Modified Barium Swallow 07/29/17 0000 Signed Impressions: Service Date/Time: Saturday, July 29, 2017 09:38 - CONCLUSION: Negative for aspiration. Complete esophagram is pending Pipo Hernandez MD FACR Barium Swallow X-Ray 07/29/17 0000 Signed Impressions: Service Date/Time: Saturday, July 29, 2017 09:38 - CONCLUSION: Probable long-standing either achalasia or partial obstruction with surgical clips in the GE junction. There is the suggestion of the mass at the GE junction as well. Direct visualization is suggested. Examination Limited by the patient's ability to cooperate . Pipo Hernandez MD FACR Chest X-Ray 07/27/17 0000 Signed Impressions: Service Date/Time: Thursday, July 27, 2017 10:24 - CONCLUSION: Abnormal chest x-ray. CT scan is suggested No prior studies for comparison. Pipo Hernandez MD FACR Chest CT 07/27/17 0000 Signed Impressions: Service Date/Time: Thursday, July 27, 2017 13:21 - CONCLUSION: 1. CT confirms the presence of a dilated esophagus with luminal debris. 2. In addition, there are findings of prior surgery with a ring of small surgical manjit at the GE junction and an additional linear wrist manjit extending from the GE junction to the lesser curvature of the stomach. 3. Mild atelectatic changes posteriorly in the right hemithorax and medially adjacent to the dilated esophagus. Jose Eason MD Knee X-Ray 07/26/17 0000 Signed Impressions: Service Date/Time: Wednesday, July 26, 2017 09:22 - CONCLUSION: 1. No acute fracture or dislocation. Loc Melendez MD Head CT 07/26/17 0000 Signed Impressions: Service Date/Time: Wednesday, July 26, 2017 10:08 - CONCLUSION: No acute disease. Jc Prescott Jr., MD Physical Exam HEENT: Normocephalic; atraumatic, pale CHEST: Even/unlabored, no obvious rhonchi CARDIAC: RRR ABDOMEN: Round, Soft, nondistended, nontender; bowel sounds active EXTREMITIES: No clubbing, cyanosis, or edema. SKIN: Normal; no rash; no jaundice., Pale DIAMOND SETTER: Awake answers questions but not always appropriate response, seems anxious to go home (Norma Victor) Assessment and Plan Plan ASSESSMENT/history - dysphagia - appears chronic, pt admits hx achalasia. c/o bolus sensation. CT chest indicated he has had gastric surgery, dilated esophagus with luminal debris. No aspiration seen Barium swallow 07/29/17 Enlarged dilated esophagus that does contain residual food. Surgical clips seen at the GE junction. Possible mass present at the GE junction. Patient needs to be upright to assist with esophageal emptying. Probable long- standing either achalasia or partial obstruction with surgical clips in the GE junction. There is the suggestion of the mass at the GE junction as well. Suggest viewing. Palliative care saw patient for consult. Currently patient has some confusion but is more cooperative today per the staff than before the last few days. Patient denies any nausea or vomiting. Continues with IV fluids at 84 cc an hour. PLAN -Diet, Regular Mechanical soft with thin liquids recommended per ST. -EGD if patient can tolerate based on ST note. -PPI -Monitor for any choking. Elevate HOB while and after patient eats. Encourage HOB 30 degree at all times. Patient was seen by myself and Dr. Ward, note was done on his behalf. - Supportive care - Further recommendations to follow based on clinical course Pt has been seen per myself and Dr. Ward, note written on his behalf (Norma Victor) Physician Comments Patient seen and examined Agree with above Continue with current supportive care Monitor labs Recommend endoscopy on Tuesday (Wei Ward MD) Norma Victor Jul 29, 2017 15:23 Wei Ward MD Jul 29, 2017 18:44
[2017-07-29 16:43] LABS: HEMOGLOBIN A1C 5.7 % (4.3-6.0)
[2017-07-29 18:21] VITALS: BP 141/79; PULSE 66; RESP 18; TEMP 97.5; O2SAT 96
[2017-07-29] MEDS: traZODone HCL 50 MG TAB PO SCH (20:39)
[2017-07-29] MEDS: ARIPiprazole 5 MG TAB PO SCH (20:40)
[2017-07-29] MEDS: diphenhydrAMINE HCL 25 MG CAP PO PRN (20:40)
[2017-07-29] MEDS: FAMOTIDINE 20 MG TAB PO SCH (20:40)
[2017-07-30] MEDS: LEVOTHYROXINE SODIUM 75 MCG TAB PO SCH (06:07)
[2017-07-30 06:25] VITALS: BP 126/68; PULSE 58; RESP 18; TEMP 97.8; O2SAT 99
[2017-07-30] MEDS: SODIUM CHLORIDE 1 GRAM TAB PO SCH ×3 (09:00→21:43)
[2017-07-30] MEDS: TAMSULOSIN HCL 0.4 MG CAP PO SCH (09:00)
[2017-07-30] MEDS: NICOTINE 21 MG/24 HR PATCH T-DERMAL SCH (09:00)
[2017-07-30 09:21] LABS: AUTOMATED NEUTROPHIL # 6.3 TH/MM3 (1.8-7.7); BASOPHIL % 0.5 % (0.0-2.0); EOSINOPHIL # 0.1 TH/MM3 (0-0.4); EOSINOPHIL % 0.9 % (0.0-4.0); HEMATOCRIT 32.8 % (39.0-51.0); HEMOGLOBIN 11.5 GM/DL (13.0-17.0); LYMPH % 9.1 % (9.0-44.0); LYMPHOCYTE # 0.7 TH/MM3 (1.0-4.8); MEAN CELL VOLUME 84.5 FL (80.0-100.0); MEAN CORPUSCULAR HEMOGLOBIN 29.7 PG (27.0-34.0); MEAN CORPUSCULAR HGB CONC 35.1 % (32.0-36.0); MONO % 10.8 % (0.0-8.0); MONOCYTE # 0.9 TH/MM3 (0-0.9); NEUT % 78.7 % (16.0-70.0); PLATELET COUNT 317 TH/MM3 (150-450); RED BLOOD COUNT 3.89 MIL/MM3 (4.50-5.90); RED CELL DISTRIBUTION WIDTH 13.3 % (11.6-17.2); WHITE BLOOD COUNT 7.9 TH/MM3 (4.0-11.0)
--- NOTE | 2017-07-30 09:35 | HHI.GIFU ---
Subjective Remarks Pt resting in bed. Per RN not eating much, doesn't want any procedures, refusing IVF. He says he is eating some and did not answer any further questions. (Alise Merino) Objective Vitals I&O Vital Signs Date Time Temp Pulse Resp B/P (MAP) Pulse Ox O2 Delivery O2 Flow Rate FiO2 07/30/17 06:25 97.8 58 18 126/68 (87) 99 07/29/17 18:21 97.5 66 18 141/79 (99) 96 I/O 07/29/17 07/29/17 07/29/17 07/30/17 07/30/17 07/30/17 07:00 15:00 23:00 07:00 15:00 23:00 Intake Total 0 ml 240 ml Balance 0 ml 240 ml Intake Oral 0 ml 240 ml # Voids 2 2 Laboratory Laboratory Tests Test 07/30/17 07:50 White Blood Count 7.9 Red Blood Count 3.89 Hemoglobin 11.5 Hematocrit 32.8 Mean Corpuscular Volume 84.5 Mean Corpuscular Hemoglobin 29.7 Mean Corpuscular Hemoglobin Concent 35.1 Red Cell Distribution Width 13.3 Platelet Count 317 Mean Platelet Volume 7.0 Neutrophils (%) (Auto) 78.7 Lymphocytes (%) (Auto) 9.1 Monocytes (%) (Auto) 10.8 Eosinophils (%) (Auto) 0.9 Basophils (%) (Auto) 0.5 Neutrophils # (Auto) 6.3 Lymphocytes # (Auto) 0.7 Monocytes # (Auto) 0.9 Eosinophils # (Auto) 0.1 Basophils # (Auto) 0.0 CBC Comment DIFF FINAL Differential Comment Imaging Last Impressions Modified Barium Swallow 07/29/17 0000 Signed Impressions: Service Date/Time: Saturday, July 29, 2017 09:38 - CONCLUSION: Negative for aspiration. Complete esophagram is pending Pipo Hernandez MD FACR Barium Swallow X-Ray 07/29/17 0000 Signed Impressions: Service Date/Time: Saturday, July 29, 2017 09:38 - CONCLUSION: Probable long-standing either achalasia or partial obstruction with surgical clips in the GE junction. There is the suggestion of the mass at the GE junction as well. Direct visualization is suggested. Examination Limited by the patient's ability to cooperate . Pipo Hernandez MD FACR Chest X-Ray 07/27/17 0000 Signed Impressions: Service Date/Time: Thursday, July 27, 2017 10:24 - CONCLUSION: Abnormal chest x-ray. CT scan is suggested No prior studies for comparison. Pipo Hernandez MD FACR Chest CT 07/27/17 0000 Signed Impressions: Service Date/Time: Thursday, July 27, 2017 13:21 - CONCLUSION: 1. CT confirms the presence of a dilated esophagus with luminal debris. 2. In addition, there are findings of prior surgery with a ring of small surgical manjit at the GE junction and an additional linear wrist manjit extending from the GE junction to the lesser curvature of the stomach. 3. Mild atelectatic changes posteriorly in the right hemithorax and medially adjacent to the dilated esophagus. Jose Eason MD Knee X-Ray 07/26/17 0000 Signed Impressions: Service Date/Time: Wednesday, July 26, 2017 09:22 - CONCLUSION: 1. No acute fracture or dislocation. Loc Melendez MD Head CT 07/26/17 0000 Signed Impressions: Service Date/Time: Wednesday, July 26, 2017 10:08 - CONCLUSION: No acute disease. Jc Prescott Jr., MD Physical Exam HEENT: Normocephalic; atraumatic, pale CHEST: Even/unlabored CARDIAC: RRR ABDOMEN: Round, Soft, nondistended, nontender; bowel sounds active EXTREMITIES: No clubbing, cyanosis, or edema. SKIN: Normal; no rash; no jaundice., Pale STRICKLER ATTENDANT: Awake . (Alise Merino [facility]) Assessment and Plan Plan ASSESSMENT/history - dysphagia - appears chronic, pt admits hx achalasia. c/o bolus sensation. CT chest indicated he has had gastric surgery, dilated esophagus with luminal debris. No aspiration seen Barium swallow 07/29/17 Enlarged dilated esophagus that does contain residual food. Surgical clips seen at the GE junction. Possible mass present at the GE junction. Patient needs to be upright to assist with esophageal emptying. Probable long- standing either achalasia or partial obstruction with surgical clips in the GE junction. There is the suggestion of the mass at the GE junction as well. Suggest viewing. Palliative care saw patient for consult. Currently patient has some confusion but is more cooperative today per the staff than before the last few days. Patient denies any nausea or vomiting. Continues with IV fluids at 84 cc an hour. 07/30/17 pt resting in bed. per RN does not want procedures and wants to . d/w brother Tito Catherine barium swallow findings, , He and other brother Tyler would like to see if pt can be made more stable from psych point of view so that he could make his own decision about pursuing EGD. PLAN -Diet, Regular Mechanical soft with thin liquids recommended per ST. - consider adding ensure -EGD, timing TBD - PPI - Elevate HOB while and after patient eats. - Pt should stay upright after eating - will follow periodically - consider palliative care consult - notify GI if pt declared competent to make decisions or family decides to proceed with EGD Patient was seen by myself and Dr. Allen, note was done on her behalf. (Alise Merino) Physician Comments agree with above aspiration precautions (Safia Allen MD) Alise Merino Jul 30, 2017 09:35 Safia Allen MD Jul 30, 2017 19:56
--- NOTE | 2017-07-30 09:37 | HHI.PYPN ---
Subjective Remarks Patient seen in his bed with nurse Heather, chart review, patient discussed with nurse. We shared with patient finds the barium swallow and he is willing to go to the further examinations and procedures related to that when asked about advanced directives as response was somewhat delayed and somewhat vague but it appears he wishes us to have a full code I will order that at this time as a further assess the CODE STATUS and any advanced directives. We'll also attempt to discuss this with patient's brother Review of Systems Except as stated in HPI: all other systems reviewed are Neg Mental Status Examination Appearance: Disheveled Consciousness: Lethargic Orientation: Person, Place Speech: Hesitant, Slow Language: Other Fund of Knowledge: Inadequate Attention and Concentration: Inadequate Memory: Impaired Mood: Other Affect: Blunt Thought Process & Associations: Disorganized Thought Content: Other (Wayan) Hallucination Type: Other (Unable to assess at this time due to patient's disorientation) Delusion Type: Other (Unable to assess at this time due to patient's disorientation) Suicidal Ideation: No Suicidal Plan: No Suicidal Intention: No Homicidal Ideation: No Homicidal Plan: No Homicidal Intention: No Insight: Poor Judgment: Poor Results Labs Test 07/30/17 07:50 White Blood Count 7.9 TH/MM3 Red Blood Count 3.89 MIL/MM3 Hemoglobin 11.5 GM/DL Hematocrit 32.8 % Mean Corpuscular Volume 84.5 FL Mean Corpuscular Hemoglobin 29.7 PG Mean Corpuscular Hemoglobin Concent 35.1 % Red Cell Distribution Width 13.3 % Platelet Count 317 TH/MM3 Mean Platelet Volume 7.0 FL Neutrophils (%) (Auto) 78.7 % Lymphocytes (%) (Auto) 9.1 % Monocytes (%) (Auto) 10.8 % Eosinophils (%) (Auto) 0.9 % Basophils (%) (Auto) 0.5 % Neutrophils # (Auto) 6.3 TH/MM3 Lymphocytes # (Auto) 0.7 TH/MM3 Monocytes # (Auto) 0.9 TH/MM3 Eosinophils # (Auto) 0.1 TH/MM3 Basophils # (Auto) 0.0 TH/MM3 CBC Comment DIFF FINAL Differential Comment Vitals/IOs Vital Signs Date Time Temp Pulse Resp B/P (MAP) Pulse Ox O2 Delivery O2 Flow Rate FiO2 07/30/17 06:25 97.8 58 18 126/68 (87) 99 Assessment & Plan Problem List: (1) Delirium due to another medical condition ICD Codes: F05 - Delirium due to known physiological condition (2) Hyponatremia ICD Codes: E87.1 - Hypo-osmolality and hyponatremia (3) Bipolar disorder ICD Codes: F31.9 - Bipolar disorder, unspecified Status: Chronic (4) Dementia in other diseases classified elsewhere with behavioral disturbance ICD Codes: F02.81 - Dementia in other diseases classified elsewhere with behavioral disturbance Status: Acute Assessment & Plan Estimated LOS: days patient continues depressed and had done, though the he appears to continue to have some insight are processing of the situation surrounding him both with advanced directives and further examinations possible mass in his gastroesophageal area Justification for Cont. Inpt. At this time patient decompensated placed in a lower level of care Discharge Planning This needs to determine if patient status evolves Problem Qualifiers (1) Bipolar disorder: Qualified Codes: F31.61 - Bipolar disorder, current episode mixed, mild Tyler Batista MD Jul 30, 2017 09:37
[2017-07-30 09:49] LABS: ALBUMIN 3.6 GM/DL (3.4-5.0); ALKALINE PHOSPHATASE 79 U/L (45-117); ALT (GPT) 44 U/L (12-78); AST (GOT) 33 U/L (15-37); BICARBONATE 25.4 MEQ/L (21.0-32.0); BLOOD UREA NITROGEN 13 MG/DL (7-18); CALCIUM 9.7 MG/DL (8.5-10.1); CHLORIDE 99 MEQ/L (98-107); CREATININE 0.79 MG/DL (0.60-1.30); GLOMERULAR FILTRATION RATE 97 ML/MIN (>89); GLUCOSE,RANDOM 106 MG/DL (74-106); MAGNESIUM 2.1 MG/DL (1.5-2.5); PHOSPHORUS 2.9 MG/DL (2.5-4.9); SODIUM (NA) 134 MEQ/L (136-145); TOTAL BILIRUBIN ADULT 0.5 MG/DL (0.2-1.0); TOTAL PROTEIN 6.6 GM/DL (6.4-8.2)
--- NOTE | 2017-07-30 10:58 | HHI.PR ---
Subjective Remarks Follow up visit for AMS, fall, and hyponatremia. Patient seen and examined with nurse at bedside, he is asleep but awakens. He is able to state his full name and , but not oriented to time or place. Discussed with nurse who states patient has been coughing since yesterday, cough nonproductive. Patient has also not been eating much or drinking much. 2-15 NO NEW COMPLAINTS ALLOWED BLOOD WORK TODAY DW RN LABS PENDING INCREASE NACL TABS TO TID 2-16 taking NACL TABS SODIUM 125 TODAY HAD SWALLOW EVALUATION TODAY FOR DYSPHAGIA DW RN AND PT MORE ALERT 2-17 for EGD WITH GI ON TUESDAY PASSED SWALLOW EVALUATION DW RN AND PT POOR APPETITE SODIUM IS 134 TODAY AM LABS Objective Vitals Vital Signs Date Time Temp Pulse Resp B/P (MAP) Pulse Ox O2 Delivery O2 Flow Rate FiO2 07/30/17 06:25 97.8 58 18 126/68 (87) 99 07/29/17 18:21 97.5 66 18 141/79 (99) 96 I/O 07/29/17 07/29/17 07/29/17 07/30/17 07/30/17 07/30/17 06:59 14:59 22:59 06:59 14:59 22:59 Intake Total 0 ml 240 ml Balance 0 ml 240 ml Intake Oral 0 ml 240 ml # Voids 2 2 Result Diagram: 07/30/17 0750 07/30/17 0750 Other Results Laboratory Tests Test 07/27/17 14:30 07/27/17 18:25 07/28/17 09:13 07/29/17 06:50 Blood Urea Nitrogen 15 MG/DL 10 MG/DL 11 MG/DL Creatinine 0.73 MG/DL 0.71 MG/DL 0.71 MG/DL Random Glucose 103 MG/DL 93 MG/DL 79 MG/DL Calcium Level 8.5 MG/DL 8.5 MG/DL 8.5 MG/DL Sodium Level 123 MEQ/L 123 MEQ/L 124 MEQ/L 125 MEQ/L Potassium Level 4.2 MEQ/L 3.9 MEQ/L 3.8 MEQ/L Chloride Level 92 MEQ/L 91 MEQ/L 92 MEQ/L Carbon Dioxide Level 23.5 MEQ/L 22.8 MEQ/L 24.9 MEQ/L Anion Gap 8 MEQ/L 10 MEQ/L 8 MEQ/L Estimat Glomerular Filtration Rate 106 ML/MIN 109 ML/MIN 109 ML/MIN White Blood Count 7.6 TH/MM3 6.0 TH/MM3 Red Blood Count 3.67 MIL/MM3 3.39 MIL/MM3 Hemoglobin 10.8 GM/DL 10.1 GM/DL Hematocrit 30.9 % 28.5 % Mean Corpuscular Volume 84.0 FL 84.1 FL Mean Corpuscular Hemoglobin 29.4 PG 29.8 PG Mean Corpuscular Hemoglobin Concent 35.0 % 35.4 % Red Cell Distribution Width 13.2 % 13.0 % Platelet Count 313 TH/MM3 278 TH/MM3 Mean Platelet Volume 6.8 FL 7.2 FL Neutrophils (%) (Auto) 76.0 % 74.8 % Lymphocytes (%) (Auto) 11.2 % 12.5 % Monocytes (%) (Auto) 11.5 % 11.3 % Eosinophils (%) (Auto) 0.9 % 1.0 % Basophils (%) (Auto) 0.4 % 0.4 % Neutrophils # (Auto) 5.8 TH/MM3 4.5 TH/MM3 Lymphocytes # (Auto) 0.9 TH/MM3 0.8 TH/MM3 Monocytes # (Auto) 0.9 TH/MM3 0.7 TH/MM3 Eosinophils # (Auto) 0.1 TH/MM3 0.1 TH/MM3 Basophils # (Auto) 0.0 TH/MM3 0.0 TH/MM3 CBC Comment DIFF FINAL DIFF FINAL Differential Comment Total Protein 5.8 GM/DL Albumin 3.1 GM/DL Phosphorus Level 2.8 MG/DL Magnesium Level 1.7 MG/DL Alkaline Phosphatase 67 U/L Aspartate Amino Transf (AST/SGOT) 37 U/L Alanine Aminotransferase (ALT/SGPT) 44 U/L Total Bilirubin 0.6 MG/DL Hemoglobin A1c 5.7 % Free Thyroxine 1.04 NG/DL Thyroid Stimulating Hormone 3rd Gen 3.030 uIU/ML Test 07/30/17 07:50 White Blood Count 7.9 TH/MM3 Red Blood Count 3.89 MIL/MM3 Hemoglobin 11.5 GM/DL Hematocrit 32.8 % Mean Corpuscular Volume 84.5 FL Mean Corpuscular Hemoglobin 29.7 PG Mean Corpuscular Hemoglobin Concent 35.1 % Red Cell Distribution Width 13.3 % Platelet Count 317 TH/MM3 Mean Platelet Volume 7.0 FL Neutrophils (%) (Auto) 78.7 % Lymphocytes (%) (Auto) 9.1 % Monocytes (%) (Auto) 10.8 % Eosinophils (%) (Auto) 0.9 % Basophils (%) (Auto) 0.5 % Neutrophils # (Auto) 6.3 TH/MM3 Lymphocytes # (Auto) 0.7 TH/MM3 Monocytes # (Auto) 0.9 TH/MM3 Eosinophils # (Auto) 0.1 TH/MM3 Basophils # (Auto) 0.0 TH/MM3 CBC Comment DIFF FINAL Differential Comment Blood Urea Nitrogen 13 MG/DL Creatinine 0.79 MG/DL Random Glucose 106 MG/DL Total Protein 6.6 GM/DL Albumin 3.6 GM/DL Calcium Level 9.7 MG/DL Phosphorus Level 2.9 MG/DL Magnesium Level 2.1 MG/DL Alkaline Phosphatase 79 U/L Aspartate Amino Transf (AST/SGOT) 33 U/L Alanine Aminotransferase (ALT/SGPT) 44 U/L Total Bilirubin 0.5 MG/DL Sodium Level 134 MEQ/L Potassium Level 3.9 MEQ/L Chloride Level 99 MEQ/L Carbon Dioxide Level 25.4 MEQ/L Anion Gap 10 MEQ/L Estimat Glomerular Filtration Rate 97 ML/MIN Imaging Last Impressions Modified Barium Swallow 07/29/17 0000 Signed Impressions: Service Date/Time: Saturday, July 29, 2017 09:38 - CONCLUSION: Negative for aspiration. Complete esophagram is pending Pipo Hernandez MD FACR Barium Swallow X-Ray 07/29/17 0000 Signed Impressions: Service Date/Time: Saturday, July 29, 2017 09:38 - CONCLUSION: Probable long-standing either achalasia or partial obstruction with surgical clips in the GE junction. There is the suggestion of the mass at the GE junction as well. Direct visualization is suggested. Examination Limited by the patient's ability to cooperate . Pipo Hernandez MD FACR Chest X-Ray 07/27/17 0000 Signed Impressions: Service Date/Time: Thursday, July 27, 2017 10:24 - CONCLUSION: Abnormal chest x-ray. CT scan is suggested No prior studies for comparison. Pipo Hernandez MD FACR Chest CT 07/27/17 0000 Signed Impressions: Service Date/Time: Thursday, July 27, 2017 13:21 - CONCLUSION: 1. CT confirms the presence of a dilated esophagus with luminal debris. 2. In addition, there are findings of prior surgery with a ring of small surgical manjit at the GE junction and an additional linear wrist manjit extending from the GE junction to the lesser curvature of the stomach. 3. Mild atelectatic changes posteriorly in the right hemithorax and medially adjacent to the dilated esophagus. Jose Eason MD Knee X-Ray 07/26/17 0000 Signed Impressions: Service Date/Time: Wednesday, July 26, 2017 09:22 - CONCLUSION: 1. No acute fracture or dislocation. Loc Melendez MD Head CT 07/26/17 0000 Signed Impressions: Service Date/Time: Wednesday, July 26, 2017 10:08 - CONCLUSION: No acute disease. Jc Prescott Jr., MD Objective Remarks GENERAL: Arousable but very lethargic today SKIN: Warm and dry. HEAD: Atraumatic. Normocephalic. EYES: Pupils equal and round. No scleral icterus. No injection or drainage. ENT: No nasal bleeding or discharge. Mucous membranes pink and moist. NECK: Trachea midline. No JVD. Supple CARDIOVASCULAR: Regular rate and rhythm. S1-S2 no S3 or S4 RESPIRATORY: No accessory muscle use. Clear to auscultation. Breath sounds equal bilaterally. GASTROINTESTINAL: Abdomen soft, non-tender, nondistended. Hepatic and splenic margins not palpable. MUSCULOSKELETAL: Extremities without clubbing, cyanosis, or edema. No obvious deformities. NEUROLOGICAL: Awake and alert. No obvious cranial nerve deficits. Motor grossly within normal limits. 4 out of 5 muscle strength in the arms and legs. Normal speech. PSYCHIATRIC: INAppropriate mood and affect; insight and judgment ABnormal. Procedures NONE Medications and IVs Current Medications Carbamazepine (TEGretol CHEW) 100 mg BID PO Last administered on 07/27/17at 21: 39; Start 07/25/17 at 21:00; Stop 07/28/17 at 12:48; Status DC Diphenhydramine HCl (Benadryl) 25 mg HS PRN PO INSOMNIA Last administered on at 20:40; Start 07/25/17 at 18:30 Levothyroxine Sodium (Synthroid) 75 mcg DAILY@0600 PO Last administered on 07/30at 06:07; Start 07/26/17 at 06:00 Tamsulosin HCl (Flomax) 0.4 mg DAILY PO Last administered on 07/28/17at 11:30; Start 07/26/17 at 09:00 Trazodone HCl (Desyrel) 50 mg HS PO Last administered on 07/29/17at 20:39; Start 07/25/17 at 21:00 Lorazepam (Ativan) 1 mg Q6H PRN PO MODERATE TO SEVERE ANXIETY Last administered on 07/29/17at 20:40; Start 07/25/17 at 18:30 Lorazepam (Ativan Inj) 1 mg Q6H PRN IM MODERATE TO SEVERE ANXIETY; Start at 18:30 Lorazepam (Ativan) 0.5 mg Q12H PRN PO MODERATE TO SEVERE ANXIETY; Start at 18:30 Lorazepam (Ativan Inj) 0.5 mg Q12H PRN IM MODERATE TO SEVERE ANXIETY; Start 05/30 at 18:30 Acetaminophen (Tylenol) 650 mg Q4H PRN PO Pain 1-5 or Temp >101F Last administered on 07/25/17at 21:11; Start 07/25/17 at 18:30 Magnesium Hydroxide (Milk Of Magnesia Liq) 30 ml DAILY PRN PO MILD CONSTIPATION ; Start 07/25/17 at 18:30 Al Hydrox/Mg Hydrox/Simethicone (Mag-Al Plus Susp Liq) 30 ml Q6H PRN PO DYSPEPSIA; Start 07/25/17 at 18:30 Nicotine (Habitrol 21 Mg Patch.24 Hr) 1 patch DAILY T-DERMAL ; Start 07/26/17 at 09:00 Docusate Sodium (Colace) 100 mg BID PRN PO MOD CONSTIPATION; Start 07/26/17 at 09:45 Ondansetron HCl (Zofran Inj) 4 mg Q6HR PRN IV PUSH NAUSEA Last administered on 07/26/17at 13:00; Start 07/26/17 at 11:00 Sodium Chloride 1,000 ml @ 84 mls/hr [id number] IV Last administered on at 10:30; Start 07/26/17 at 11:00; Stop 07/29/17 at 15:11; Status DC Sodium Chloride 1,000 ml @ 999 mls/hr BOLUS ONCE IV Last administered on 07/27at 10:00; Start 07/27/17 at 10:00; Stop 07/27/17 at 11:00; Status DC Sodium Chloride (Sodium Chloride) 1 gm ONCE ONCE PO Last administered on at 10:00; Start 07/27/17 at 10:00; Stop 07/27/17 at 10:01; Status DC Sodium Chloride (Sodium Chloride) 1 gm DAILY PO Last administered on 07/28/17at 11:57; Start 07/28/17 at 09:00; Stop 07/28/17 at 09:44; Status DC Padimate O (Chapstick) 1 applic UNSCH PRN TOPICAL chapped lips Last administered on 07/28/17at 11:06; Start 07/27/17 at 15:30 Sodium Chloride 1,000 ml @ 999 mls/hr BOLUS ONCE IV Last administered on 07/27at 21:30; Start 07/27/17 at 20:00; Stop 07/27/17 at 21:00; Status DC Sodium Chloride (Sodium Chloride) 1 gm TID PO Last administered on 07/29/17at 20 :39; Start 07/28/17 at 13:00 Aripiprazole (Abilify) 5 mg HS PO ; Start 07/28/17 at 21:00; Stop 07/28/17 at 21 :00; Status DC Tolvaptan (Samsca) 15 mg ONCE ONCE PO ; Start 07/28/17 at 13:00; Stop 07/28/17 at 13:48; Status DC Aripiprazole (Abilify) 2.5 mg HS PO Last administered on 07/29/17at 20:40; Start 07/28/17 at 21:00 Miscellaneous (Pill Splitter) 1 ea UNSCH PRN OTHER SEE LABEL COMMENTS; Start at 14:00 Tolvaptan (Samsca) 15 mg ONCE ONCE PO Last administered on 07/29/17at 15:14; Start 07/29/17 at 14:00; Stop 07/29/17 at 14:01; Status DC Dextrose/Sodium Chloride 1,000 ml @ 50 mls/hr Q20H IV Last administered on at 15:15; Start 07/29/17 at 15:15 Famotidine (Pepcid) 20 mg HS PO Last administered on 07/29/17at 20:40; Start at 21:00 A/P Problem List: (1) Lethargy ICD Code: R53.83 - Other fatigue (2) Delirium due to another medical condition ICD Code: F05 - Delirium due to known physiological condition (3) Dementia in other diseases classified elsewhere with behavioral disturbance ICD Code: F02.81 - Dementia in other diseases classified elsewhere with behavioral disturbance Status: Acute (4) Hyponatremia ICD Code: E87.1 - Hypo-osmolality and hyponatremia (5) Bipolar disorder ICD Code: F31.9 - Bipolar disorder, unspecified Status: Chronic Assessment and Plan 72-year-old male with acute onset of lethargy and weakness admitted on medical psych unit, medical team following for ongoing medical management. Lethargy Weakness - Recent fall but this is likely secondary to weakness rather than the cause. - Brain CT shows no acute disease or bleeding, knee x-rays negative - ABG with no acute reason for AMS/lethargy - ammonia level WNL - hyponatremia on BMP, likely the cause of lethargy. CBC with anemia which is not new. - swallow evaluation due to lethargy Hyponatremia - NA 120-->125 - Patient does not appear fluid overloaded - Will give NS bolus and continue IV NS@84ml/hr, NA tabs 1gm PO TID if able to take, check NA levels Q6hrs, fluid restrictions, Will consult nephrology. 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 Consider stopping tegretol Seizure disorder - No witnessed seizures - This could potentially be an etiology for his weakness and change in mental status - We'll consider EEG based on preliminary workup findings - Correct Na Benign prostatic hypertrophy - Hypothyroidism - These conditions are within normal limits on recent evaluations - Continue baseline management for these Cough - Concern for aspiration, afebrile with no WBC rise - Swallow evaluation, advance diet per ST - Chest x-ray reviewed and abnormal. No PNA or fluid overload Dilated esophagus. pt with h/o achalasia. Consult GI for eval. DYSPHAGIA- GI IS FOLLOWING FOR EGD ON TUESDAY WITH GI DVT prophylaxis - SCDs, recent fall Discussed with patient, nurse Discharge Planning PENDING PSYCHIATRIC CLEARANCE Problem Qualifiers (1) Bipolar disorder: Qualified Codes: F31.61 - Bipolar disorder, current episode mixed, mild Pipo Boyce DO Jul 30, 2017 10:58
[2017-07-30] MEDS: DEXT 5%-NACL 0.9% 1000 ML INJ 1,000 ML IV SCH ×2 (11:15→15:15)
--- NOTE | 2017-07-30 15:10 | HHI.NPPN ---
Review of Systems Ears, Nose, & Throat ENT Remarks dysphagia Objective Data Data Vital Signs Date Time Temp Pulse Resp B/P (MAP) Pulse Ox O2 Delivery O2 Flow Rate FiO2 07/30/17 06:25 97.8 58 18 126/68 (87) 99 07/29/17 18:21 97.5 66 18 141/79 (99) 96 -: 07/30/17 0750 07/30/17 0750 Physical Exam General Appearance: Well Developed, No Acute Distress, Comfortable Eyes Eye Exam: Pupils Equal Throat Throat Exam: Oral Mucosa [place] & Moist Pulmonary Resp Exam: Clear Bilaterally, Breath Sounds Equal Cardiology CV Exam: Regular, Normal Sinus Rhythm Gastrointestinal/Abdomen GI Exam: Soft, Non-Tender Musculoskeletal MS Exam: Joints Intact, Normal Tone Integumentary Skin Exam: Warm, Dry Extremeties Extremities Exam: No Edema, Pedal Pulses Palpable Neurologic Neuro Exam: Alert, Awake, Speech Clear Psychiatric Psych Exam: Appropriate Responses Assessment/Plan Discussed Condition With: Patient Electrolyte Assessment: Hyponatremia Problem List: (1) Hyponatremia ICD Codes: E87.1 - Hypo-osmolality and hyponatremia Plan: Chronic, acutely worse SIAHD due to Tegretol, avoid this medication, he did receive one dose since admission On IVF, will DECREASE IT TO 30 CC/HR Needs solid food intake, however has achalasia and GI is following On Salt tabs change TO bid, 1g Na 134 Unable to take tolvaptan Free water restriction advised, 1500 ml per day (2) Bipolar disorder ICD Codes: F31.9 - Bipolar disorder, unspecified Status: Chronic Plan: Psych management (3) Dysphagia ICD Codes: R13.10 - Dysphagia, unspecified Plan: GI following Plan patient was seen and examined. Agree with above assessment and plan Problem Qualifiers (1) Bipolar disorder: Qualified Codes: F31.61 - Bipolar disorder, current episode mixed, mild Marsha Jarrett MD Jul 30, 2017 15:10
[2017-07-30 18:18] VITALS: BP 112/69; PULSE 16; RESP 16; TEMP 97.5; O2SAT 95
[2017-07-30] MEDS: FAMOTIDINE 20 MG TAB PO SCH (21:44)
[2017-07-30] MEDS: traZODone HCL 50 MG TAB PO SCH (21:44)
[2017-07-30] MEDS: ARIPiprazole 5 MG TAB PO SCH (21:44)
[2017-07-31 06:23] VITALS: BP 123/69; PULSE 65; RESP 16; TEMP 97.7; O2SAT 99
[2017-07-31] MEDS: LEVOTHYROXINE SODIUM 75 MCG TAB PO SCH (06:35)
[2017-07-31 07:47] LABS: BASOPHIL % 0.6 % (0.0-2.0); EOSINOPHIL # 0.1 TH/MM3 (0-0.4); EOSINOPHIL % 1.5 % (0.0-4.0); HEMATOCRIT 32.1 % (39.0-51.0); HEMOGLOBIN 11.1 GM/DL (13.0-17.0); LYMPH % 11.2 % (9.0-44.0); LYMPHOCYTE # 0.7 TH/MM3 (1.0-4.8); MEAN CORPUSCULAR HEMOGLOBIN 29.5 PG (27.0-34.0); MEAN CORPUSCULAR HGB CONC 34.7 % (32.0-36.0); MEAN PLATELET VOLUME 6.9 FL (7.0-11.0); MONO % 10.5 % (0.0-8.0); MONOCYTE # 0.7 TH/MM3 (0-0.9); NEUT % 76.2 % (16.0-70.0); PLATELET COUNT 297 TH/MM3 (150-450); RED BLOOD COUNT 3.77 MIL/MM3 (4.50-5.90); RED CELL DISTRIBUTION WIDTH 13.3 % (11.6-17.2); WHITE BLOOD COUNT 6.5 TH/MM3 (4.0-11.0)
[2017-07-31 07:59] LABS: ALBUMIN 3.4 GM/DL (3.4-5.0); AST (GOT) 21 U/L (15-37); BICARBONATE 26.8 MEQ/L (21.0-32.0); BLOOD UREA NITROGEN 19 MG/DL (7-18); CALCIUM 9.5 MG/DL (8.5-10.1); CHLORIDE 100 MEQ/L (98-107); CREATININE 0.83 MG/DL (0.60-1.30); GLOMERULAR FILTRATION RATE 91 ML/MIN (>89); GLUCOSE,RANDOM 108 MG/DL (74-106); MAGNESIUM 1.9 MG/DL (1.5-2.5); SODIUM (NA) 134 MEQ/L (136-145)
[2017-07-31 08:01] LABS: ALT (GPT) 37 U/L (12-78); PHOSPHORUS 3.1 MG/DL (2.5-4.9)
[2017-07-31 08:03] LABS: ALKALINE PHOSPHATASE 77 U/L (45-117); TOTAL BILIRUBIN ADULT 0.4 MG/DL (0.2-1.0); TOTAL PROTEIN 6.3 GM/DL (6.4-8.2)
--- NOTE | 2017-07-31 08:15 | HHI.PYPN ---
Subjective Remarks Patient seen in his room with nurse Heather, chart reviewed, patient discussed with nurse. Patient continues alert somewhat depressed and labile. Though he is making an attempt to eat his breakfast. He does denies suicidality at this time. For now continue treatment Review of Systems Except as stated in HPI: all other systems reviewed are Neg Mental Status Examination Appearance: Disheveled Consciousness: Lethargic Orientation: Person, Place Speech: Hesitant, Slow Language: Other Fund of Knowledge: Inadequate Attention and Concentration: Inadequate Memory: Impaired Mood: Other Affect: Blunt Thought Process & Associations: Disorganized Thought Content: Other ([place]) Hallucination Type: Other (Unable to assess at this time due to patient's disorientation) Delusion Type: Other (Unable to assess at this time due to patient's disorientation) Suicidal Ideation: No Suicidal Plan: No Suicidal Intention: No Homicidal Ideation: No Homicidal Plan: No Homicidal Intention: No Insight: Poor Judgment: Poor Results Labs Test 07/31/17 06:44 White Blood Count 6.5 TH/MM3 Red Blood Count 3.77 MIL/MM3 Hemoglobin 11.1 GM/DL Hematocrit 32.1 % Mean Corpuscular Volume 85.0 FL Mean Corpuscular Hemoglobin 29.5 PG Mean Corpuscular Hemoglobin Concent 34.7 % Red Cell Distribution Width 13.3 % Platelet Count 297 TH/MM3 Mean Platelet Volume 6.9 FL Neutrophils (%) (Auto) 76.2 % Lymphocytes (%) (Auto) 11.2 % Monocytes (%) (Auto) 10.5 % Eosinophils (%) (Auto) 1.5 % Basophils (%) (Auto) 0.6 % Neutrophils # (Auto) 5.0 TH/MM3 Lymphocytes # (Auto) 0.7 TH/MM3 Monocytes # (Auto) 0.7 TH/MM3 Eosinophils # (Auto) 0.1 TH/MM3 Basophils # (Auto) 0.0 TH/MM3 CBC Comment DIFF FINAL Differential Comment Blood Urea Nitrogen 19 MG/DL Creatinine 0.83 MG/DL Random Glucose 108 MG/DL Total Protein 6.3 GM/DL Albumin 3.4 GM/DL Calcium Level 9.5 MG/DL Phosphorus Level 3.1 MG/DL Magnesium Level 1.9 MG/DL Alkaline Phosphatase 77 U/L Aspartate Amino Transf (AST/SGOT) 21 U/L Alanine Aminotransferase (ALT/SGPT) 37 U/L Total Bilirubin 0.4 MG/DL Sodium Level 134 MEQ/L Potassium Level 4.0 MEQ/L Chloride Level 100 MEQ/L Carbon Dioxide Level 26.8 MEQ/L Anion Gap 7 MEQ/L Estimat Glomerular Filtration Rate 91 ML/MIN Vitals/IOs Vital Signs Date Time Temp Pulse Resp B/P (MAP) Pulse Ox O2 Delivery O2 Flow Rate FiO2 07/31/17 06:23 97.7 65 16 123/69 (87) 99 Intake and Output 07/31/17 07/31/17 08/01/17 08:00 16:00 00:00 Intake Total 360 ml Balance 360 ml Assessment & Plan Problem List: (1) Delirium due to another medical condition ICD Codes: F05 - Delirium due to known physiological condition (2) Hyponatremia ICD Codes: E87.1 - Hypo-osmolality and hyponatremia (3) Bipolar disorder ICD Codes: F31.9 - Bipolar disorder, unspecified Status: Chronic (4) Dementia in other diseases classified elsewhere with behavioral disturbance ICD Codes: F02.81 - Dementia in other diseases classified elsewhere with behavioral disturbance Status: Acute Assessment & Plan Estimated LOS: days patient continues somewhat depressed labile though cooperative. Taking attempts to increase oral consumption Justification for Cont. Inpt. At this time patient would decompensated placed in the lower level of care Discharge Planning To be determined Problem Qualifiers (1) Bipolar disorder: Qualified Codes: F31.61 - Bipolar disorder, current episode mixed, mild Tyler Batista MD Jul 31, 2017 08:15
[2017-07-31] MEDS: NICOTINE 21 MG/24 HR PATCH T-DERMAL SCH (09:00)
[2017-07-31] MEDS: TAMSULOSIN HCL 0.4 MG CAP PO SCH (09:00)
[2017-07-31] MEDS: SODIUM CHLORIDE 1 GRAM TAB PO SCH ×2 (09:00→21:00)
--- NOTE | 2017-07-31 09:44 | HHI.PR ---
Subjective Remarks Patient seen and examined this morning. Temperature 97.7, pulse 65, respiratory rate 16, blood pressure 123/69, pulse ox 99 on room air. Working with nurse to attempt oral feeding. He is not very willing to eat at this time. Understands that the plan is an EGD for tomorrow. Denies any complaints or issues at this time, wishes to be left alone. Objective Vitals Vital Signs Date Time Temp Pulse Resp B/P (MAP) Pulse Ox O2 Delivery O2 Flow Rate FiO2 07/31/17 06:23 97.7 65 16 123/69 (87) 99 07/30/17 18:18 97.5 16 16 112/69 (83) 95 I/O 07/30/17 07/30/17 07/30/17 07/31/17 07/31/17 07/31/17 07:00 15:00 23:00 07:00 15:00 23:00 Intake Total 420 ml 360 ml Balance 420 ml 360 ml Intake Oral 420 ml IV Total 360 ml # Voids 1 1 # Bowel Movements 1 1 Result Diagram: 07/31/17 0644 07/31/17 0644 Objective Remarks GEN: Thin, poorly nourished. No acute distress. CV: Regular rate and rhythm without obvious murmurs LUNGS: Clear to auscultation bilaterally. Normal respiratory effort. No wheezes , rales, rhonchi. GI: Soft, nontender, nondistended. No palpable masses. Bowel sounds WNL. EXT: No edema. NEURO/PSYCH: Inappropriate mood and affect; insight and judgment Abnormal. 4 out of 5 muscle strength in arms and legs. Normal speech Procedures NONE Medications and IVs Current Medications Medications (Trade) Dose Ordered Sig/Kerry Route Start Time Stop Time Status Last Admin (Benadryl) 25 mg HS PRN PO 07/25/17 18:30 07/29/17 20:40 (Synthroid) 75 mcg DAILY@0600 PO 07/26/17 06:00 07/31/17 06:35 (Flomax) 0.4 mg DAILY PO 07/26/17 09:00 07/28/17 11:30 (Desyrel) 50 mg HS PO 07/25/17 21:00 07/30/17 21:44 (Ativan) 1 mg Q6H PRN PO 07/25/17 18:30 07/29/17 20:40 (Ativan Inj) 1 mg Q6H PRN IM 07/25/17 18:30 (Ativan) 0.5 mg Q12H PRN PO 07/25/17 18:30 (Ativan Inj) 0.5 mg Q12H PRN IM 07/25/17 18:30 (Tylenol) 650 mg Q4H PRN PO 07/25/17 18:30 07/25/17 21:11 (Milk Of Magnesia Liq) 30 ml DAILY PRN PO 07/25/17 18:30 (Mag-Al Plus Susp Liq) 30 ml Q6H PRN PO 07/25/17 18:30 (Habitrol 21 Mg Patch.24 Hr) 1 patch DAILY T-DERMAL 07/26/17 09:00 (Colace) 100 mg BID PRN PO 07/26/17 09:45 (Zofran Inj) 4 mg Q6HR PRN IV PUSH 07/26/17 11:00 07/26/17 13:00 (Chapstick) 1 applic UNSCH PRN TOPICAL 07/27/17 15:30 07/28/17 11:06 (Abilify) 2.5 mg HS PO 07/28/17 21:00 07/30/17 21:44 (Pill Splitter) 1 ea UNSCH PRN OTHER 07/28/17 14:00 (Pepcid) 20 mg HS PO 07/29/17 21:00 07/30/17 21:44 (Sodium Chloride) 1 gm BID PO 07/30/17 21:00 07/30/17 21:43 Dextrose/Sodium Chloride 1,000 ml @ 30 mls/hr Q24H IV 07/30/17 15:15 07/30/17 15:15 A/P Problem List: (1) Lethargy ICD Code: R53.83 - Other fatigue (2) Delirium due to another medical condition ICD Code: F05 - Delirium due to known physiological condition (3) Dementia in other diseases classified elsewhere with behavioral disturbance ICD Code: F02.81 - Dementia in other diseases classified elsewhere with behavioral disturbance Status: Acute (4) Hyponatremia ICD Code: E87.1 - Hypo-osmolality and hyponatremia (5) Bipolar disorder ICD Code: F31.9 - Bipolar disorder, unspecified Status: Chronic Assessment and Plan 72-year-old male with acute onset of lethargy and weakness admitted on medical psych unit, medical team following for ongoing medical management. Lethargy Weakness - Recent fall but this is likely secondary to weakness rather than the cause. - Brain CT shows no acute disease or bleeding, knee x-rays negative - ABG with no acute reason for AMS/lethargy - ammonia level WNL - hyponatremia on BMP, likely the cause of lethargy. CBC with anemia which is not new. - swallow evaluation due to lethargy Hyponatremia - NA 120-->125-->134, improving - Patient does not appear fluid overloaded - IV NS@30ml/hr, NA tabs 1gm PO BID if able to take, check NA levels Q6hrs , fluid restrictions at 1500mls -Nephrology consulted, recommendations appreciated Seizure disorder - No witnessed seizures - This could potentially be an etiology for his weakness and change in mental status - We'll consider EEG based on preliminary workup findings - Correct Na Benign prostatic hypertrophy - Hypothyroidism - These conditions are within normal limits on recent evaluations - Continue baseline management for these Cough - Concern for aspiration, afebrile with no WBC rise - Swallow evaluation, advance diet per ST - Chest x-ray reviewed and abnormal. No PNA or fluid overload Dilated esophagus. pt with h/o achalasia. Consult GI for eval. DYSPHAGIA- GI IS FOLLOWING FOR EGD ON TUESDAY WITH GI DVT prophylaxis - SCDs, recent fall Discharge Planning Pending psychiatry clearance Problem Qualifiers (1) Bipolar disorder: Qualified Codes: F31.61 - Bipolar disorder, current episode mixed, mild Juancarlos Bishop MD, R3 Jul 31, 2017 09:44
[2017-07-31] MEDS: DEXT 5%-NACL 0.9% 1000 ML INJ 1,000 ML IV SCH (12:19)
--- NOTE | 2017-07-31 12:54 | HHI.NPPN ---
Review of Systems Ears, Nose, & Throat ENT Remarks dysphagia Objective Data Data Vital Signs Date Time Temp Pulse Resp B/P (MAP) Pulse Ox O2 Delivery O2 Flow Rate FiO2 07/31/17 06:23 97.7 65 16 123/69 (87) 99 18 18:18 97.5 16 16 112/69 (83) 95 -: 07/31/17 0644 07/31/17 0644 Physical Exam General Appearance: Well Developed, No Acute Distress, Comfortable Eyes Eye Exam: Pupils Equal Throat Throat Exam: Oral Mucosa [place] & Moist Pulmonary Resp Exam: Clear Bilaterally, Breath Sounds Equal Cardiology CV Exam: Regular, Normal Sinus Rhythm Gastrointestinal/Abdomen GI Exam: Soft, Non-Tender Musculoskeletal MS Exam: Joints Intact, Normal Tone Integumentary Skin Exam: Warm, Dry Extremeties Extremities Exam: No Edema, Pedal Pulses Palpable Neurologic Neuro Exam: Alert, Awake, Speech Clear Psychiatric Psych Exam: Appropriate Responses Assessment/Plan Discussed Condition With: Patient Electrolyte Assessment: Hyponatremia Problem List: (1) Hyponatremia ICD Codes: E87.1 - Hypo-osmolality and hyponatremia Plan: Chronic, acutely worse SIAHD due to Tegretol, avoid this medication, he did receive one dose since admission On IVF 30 CC/HR Needs solid food intake, however has achalasia and GI is following On Salt tabs bid, 1g Na 134 Unable to take tolvaptan Free water restriction advised, [address] Mix to follow (2) Bipolar disorder ICD Codes: F31.9 - Bipolar disorder, unspecified Status: Chronic Plan: Psych management (3) Dysphagia ICD Codes: R13.10 - Dysphagia, unspecified Plan: GI following Plan patient was seen and examined. Agree with above assessment and plan Problem Qualifiers (1) Bipolar disorder: Qualified Codes: F31.61 - Bipolar disorder, current episode mixed, mild Marsha Jarrett MD Jul 31, 2017 12:54
[2017-07-31 18:54] VITALS: BP 133/62; PULSE 62; RESP 17; TEMP 98.1; O2SAT 99
[2017-07-31] MEDS: ARIPiprazole 5 MG TAB PO SCH (20:55)
[2017-07-31] MEDS: traZODone HCL 50 MG TAB PO SCH (20:55)
[2017-07-31] MEDS: diphenhydrAMINE HCL 25 MG CAP PO PRN (20:55)
[2017-07-31] MEDS: FAMOTIDINE 20 MG TAB PO SCH (20:55)
[2017-08-01] MEDS: LORazepam 2 MG/ML VIAL IM PRN ×2 (02:00→02:02)
[2017-08-01 04:50] VITALS: BP 124/75; PULSE 66; RESP 16; TEMP 98.3; O2SAT 99
[2017-08-01] MEDS: LEVOTHYROXINE SODIUM 75 MCG TAB PO SCH (06:00)
--- NOTE | 2017-08-01 09:27 | HHI.PR ---
Subjective Remarks Follow up visit for AMS, fall, and hyponatremia. Patient seen and examined with nurse at bedside, he is asleep but awakens. He is able to state his full name and , but not oriented to time or place. Discussed with nurse who states patient has been coughing since yesterday, cough nonproductive. Patient has also not been eating much or drinking much. 2-15 NO NEW COMPLAINTS ALLOWED BLOOD WORK TODAY DW RN LABS PENDING INCREASE NACL TABS TO TID 2-16 taking NACL TABS SODIUM 125 TODAY HAD SWALLOW EVALUATION TODAY FOR DYSPHAGIA DW RN AND PT MORE ALERT 07-30 for EGD WITH GI ON TUESDAY PASSED SWALLOW EVALUATION DW RN AND PT POOR APPETITE SODIUM IS 134 TODAY AM LABS 07-31 Patient seen and examined this morning. Temperature 97.7, pulse 65, respiratory rate 16, blood pressure 123/69, pulse ox 99 on room air. Working with nurse to attempt oral feeding. He is not very willing to eat at this time. Understands that the plan is an EGD for tomorrow. Denies any complaints or issues at this time, wishes to be left alone. 08-01 FAMILY HAS REFUSED TO GIVE PERMISSION FOR EGD AT THIS TIME Objective Vitals Vital Signs Date Time Temp Pulse Resp B/P (MAP) Pulse Ox O2 Delivery O2 Flow Rate FiO2 08/01/17 04:50 98.3 66 16 124/75 (91) 99 07/31/17 18:54 98.1 62 17 133/62 (85) 99 I/O 07/31/17 07/31/17 07/31/17 08/01/17 08/01/17 08/01/17 07:00 15:00 23:00 07:00 15:00 23:00 Intake Total 360 ml 60 ml Balance 360 ml 60 ml Intake Oral 60 ml IV Total 360 ml # Voids 1 5 # Bowel Movements 1 1 Result Diagram: 07/31/17 0644 07/31/17 0644 Other Results Laboratory Tests Test 07/30/17 07:50 07/31/17 06:44 White Blood Count 7.9 TH/MM3 6.5 TH/MM3 Red Blood Count 3.89 MIL/MM3 3.77 MIL/MM3 Hemoglobin 11.5 GM/DL 11.1 GM/DL Hematocrit 32.8 % 32.1 % Mean Corpuscular Volume 84.5 FL 85.0 FL Mean Corpuscular Hemoglobin 29.7 PG 29.5 PG Mean Corpuscular Hemoglobin Concent 35.1 % 34.7 % Red Cell Distribution Width 13.3 % 13.3 % Platelet Count 317 TH/MM3 297 TH/MM3 Mean Platelet Volume 7.0 FL 6.9 FL Neutrophils (%) (Auto) 78.7 % 76.2 % Lymphocytes (%) (Auto) 9.1 % 11.2 % Monocytes (%) (Auto) 10.8 % 10.5 % Eosinophils (%) (Auto) 0.9 % 1.5 % Basophils (%) (Auto) 0.5 % 0.6 % Neutrophils # (Auto) 6.3 TH/MM3 5.0 TH/MM3 Lymphocytes # (Auto) 0.7 TH/MM3 0.7 TH/MM3 Monocytes # (Auto) 0.9 TH/MM3 0.7 TH/MM3 Eosinophils # (Auto) 0.1 TH/MM3 0.1 TH/MM3 Basophils # (Auto) 0.0 TH/MM3 0.0 TH/MM3 CBC Comment DIFF FINAL DIFF FINAL Differential Comment Blood Urea Nitrogen 13 MG/DL 19 MG/DL Creatinine 0.79 MG/DL 0.83 MG/DL Random Glucose 106 MG/DL 108 MG/DL Total Protein 6.6 GM/DL 6.3 GM/DL Albumin 3.6 GM/DL 3.4 GM/DL Calcium Level 9.7 MG/DL 9.5 MG/DL Phosphorus Level 2.9 MG/DL 3.1 MG/DL Magnesium Level 2.1 MG/DL 1.9 MG/DL Alkaline Phosphatase 79 U/L 77 U/L Aspartate Amino Transf (AST/SGOT) 33 U/L 21 U/L Alanine Aminotransferase (ALT/SGPT) 44 U/L 37 U/L Total Bilirubin 0.5 MG/DL 0.4 MG/DL Sodium Level 134 MEQ/L 134 MEQ/L Potassium Level 3.9 MEQ/L 4.0 MEQ/L Chloride Level 99 MEQ/L 100 MEQ/L Carbon Dioxide Level 25.4 MEQ/L 26.8 MEQ/L Anion Gap 10 MEQ/L 7 MEQ/L Estimat Glomerular Filtration Rate 97 ML/MIN 91 ML/MIN Imaging Last Impressions Modified Barium Swallow 07/29/17 0000 Signed Impressions: Service Date/Time: Saturday, July 29, 2017 09:38 - CONCLUSION: Negative for aspiration. Complete esophagram is pending Pipo Hernandez MD FACR Barium Swallow X-Ray 07/29/17 0000 Signed Impressions: Service Date/Time: Saturday, July 29, 2017 09:38 - CONCLUSION: Probable long-standing either achalasia or partial obstruction with surgical clips in the GE junction. There is the suggestion of the mass at the GE junction as well. Direct visualization is suggested. Examination Limited by the patient's ability to cooperate . Pipo Hernandez MD FACR Chest X-Ray 07/27/17 0000 Signed Impressions: Service Date/Time: Thursday, July 27, 2017 10:24 - CONCLUSION: Abnormal chest x-ray. CT scan is suggested No prior studies for comparison. Pipo Hernandez MD FACR Chest CT 07/27/17 0000 Signed Impressions: Service Date/Time: Thursday, July 27, 2017 13:21 - CONCLUSION: 1. CT confirms the presence of a dilated esophagus with luminal debris. 2. In addition, there are findings of prior surgery with a ring of small surgical manjit at the GE junction and an additional linear wrist manjit extending from the GE junction to the lesser curvature of the stomach. 3. Mild atelectatic changes posteriorly in the right hemithorax and medially adjacent to the dilated esophagus. Jose Eason MD Knee X-Ray 07/26/17 0000 Signed Impressions: Service Date/Time: Wednesday, July 26, 2017 09:22 - CONCLUSION: 1. No acute fracture or dislocation. Loc Melendez MD Head CT 07/26/17 0000 Signed Impressions: Service Date/Time: Wednesday, July 26, 2017 10:08 - CONCLUSION: No acute disease. Jc Prescott Jr., MD Objective Remarks GENERAL: AWAKE ALERT AND TALKATIVE AND COOPERATIVE TODAY SKIN: Warm and dry. HEAD: Atraumatic. Normocephalic. EYES: Pupils equal and round. No scleral icterus. No injection or drainage. ENT: No nasal bleeding or discharge. Mucous membranes pink and moist. NECK: Trachea midline. No JVD. Supple CARDIOVASCULAR: Regular rate and rhythm. S1-S2 no S3 or S4 RESPIRATORY: No accessory muscle use. Clear to auscultation. Breath sounds equal bilaterally. GASTROINTESTINAL: Abdomen soft, non-tender, nondistended. Hepatic and splenic margins not palpable. MUSCULOSKELETAL: Extremities without clubbing, cyanosis, or edema. No obvious deformities. NEUROLOGICAL: Awake and alert. No obvious cranial nerve deficits. Motor grossly within normal limits. 4 out of 5 muscle strength in the arms and legs. Normal speech. PSYCHIATRIC: INAppropriate mood and affect; insight and judgment ABnormal. Procedures NONE Medications and IVs Current Medications Carbamazepine (TEGretol CHEW) 100 mg BID PO Last administered on 07/27/17at 21: 39; Start 07/25/17 at 21:00; Stop 07/28/17 at 12:48; Status DC Diphenhydramine HCl (Benadryl) 25 mg HS PRN PO INSOMNIA Last administered on at 20:55; Start 07/25/17 at 18:30 Levothyroxine Sodium (Synthroid) 75 mcg DAILY@0600 PO Last administered on 08/01at 06:00; Start 07/26/17 at 06:00 Tamsulosin HCl (Flomax) 0.4 mg DAILY PO Last administered on 07/31/17at 09:00; Start 07/26/17 at 09:00 Trazodone HCl (Desyrel) 50 mg HS PO Last administered on 07/31/17at 20:55; Start 07/25/17 at 21:00 Lorazepam (Ativan) 1 mg Q6H PRN PO MODERATE TO SEVERE ANXIETY Last administered on 07/29/17at 20:40; Start 07/25/17 at 18:30 Lorazepam (Ativan Inj) 1 mg Q6H PRN IM MODERATE TO SEVERE ANXIETY Last administered on 08/01/17at 02:02; Start 07/25/17 at 18:30 Lorazepam (Ativan) 0.5 mg Q12H PRN PO MODERATE TO SEVERE ANXIETY; Start at 18:30 Lorazepam (Ativan Inj) 0.5 mg Q12H PRN IM MODERATE TO SEVERE ANXIETY; Start 05/30 at 18:30 Acetaminophen (Tylenol) 650 mg Q4H PRN PO Pain 1-5 or Temp >101F Last administered on 07/25/17at 21:11; Start 07/25/17 at 18:30 Magnesium Hydroxide (Milk Of Magnesia Liq) 30 ml DAILY PRN PO MILD CONSTIPATION ; Start 07/25/17 at 18:30 Al Hydrox/Mg Hydrox/Simethicone (Mag-Al Plus Susp Liq) 30 ml Q6H PRN PO DYSPEPSIA; Start 07/25/17 at 18:30 Nicotine (Habitrol 21 Mg Patch.24 Hr) 1 patch DAILY T-DERMAL ; Start 07/26/17 at 09:00 Docusate Sodium (Colace) 100 mg BID PRN PO MOD CONSTIPATION; Start 07/26/17 at 09:45 Ondansetron HCl (Zofran Inj) 4 mg Q6HR PRN IV PUSH NAUSEA Last administered on 07/26/17at 13:00; Start 07/26/17 at 11:00 Sodium Chloride 1,000 ml @ 84 mls/hr [id number] IV Last administered on at 10:30; Start 07/26/17 at 11:00; Stop 07/29/17 at 15:11; Status DC Sodium Chloride 1,000 ml @ 999 mls/hr BOLUS ONCE IV Last administered on 07/27at 10:00; Start 07/27/17 at 10:00; Stop 07/27/17 at 11:00; Status DC Sodium Chloride (Sodium Chloride) 1 gm ONCE ONCE PO Last administered on at 10:00; Start 07/27/17 at 10:00; Stop 07/27/17 at 10:01; Status DC Sodium Chloride (Sodium Chloride) 1 gm DAILY PO Last administered on 07/28/17at 11:57; Start 07/28/17 at 09:00; Stop 07/28/17 at 09:44; Status DC Padimate O (Chapstick) 1 applic UNSCH PRN TOPICAL chapped lips Last administered on 07/28/17at 11:06; Start 07/27/17 at 15:30 Sodium Chloride 1,000 ml @ 999 mls/hr BOLUS ONCE IV Last administered on 07/27at 21:30; Start 07/27/17 at 20:00; Stop 07/27/17 at 21:00; Status DC Sodium Chloride (Sodium Chloride) 1 gm TID PO Last administered on 07/29/17at 20 :39; Start 07/28/17 at 13:00; Stop 07/30/17 at 15:09; Status DC Aripiprazole (Abilify) 5 mg HS PO ; Start 07/28/17 at 21:00; Stop 07/28/17 at 21 :00; Status DC Tolvaptan (Samsca) 15 mg ONCE ONCE PO ; Start 07/28/17 at 13:00; Stop 07/28/17 at 13:48; Status DC Aripiprazole (Abilify) 2.5 mg HS PO Last administered on 07/31/17at 20:55; Start 07/28/17 at 21:00 Miscellaneous (Pill Splitter) 1 ea UNSCH PRN OTHER SEE LABEL COMMENTS; Start at 14:00 Tolvaptan (Samsca) 15 mg ONCE ONCE PO Last administered on 07/29/17at 15:14; Start 07/29/17 at 14:00; Stop 07/29/17 at 14:01; Status DC Dextrose/Sodium Chloride 1,000 ml @ 50 mls/hr Q20H IV Last administered on at 11:15; Start 07/29/17 at 15:15; Stop 07/30/17 at 15:09; Status DC Famotidine (Pepcid) 20 mg HS PO Last administered on 07/31/17at 20:55; Start at 21:00 Sodium Chloride (Sodium Chloride) 1 gm BID PO Last administered on 07/31/17at 21 :00; Start 07/30/17 at 21:00 Dextrose/Sodium Chloride 1,000 ml @ 30 mls/hr Q24H IV Last administered on at 12:19; Start 07/30/17 at 15:15 A/P Problem List: (1) Lethargy ICD Code: R53.83 - Other fatigue (2) Delirium due to another medical condition ICD Code: F05 - Delirium due to known physiological condition (3) Dementia in other diseases classified elsewhere with behavioral disturbance ICD Code: F02.81 - Dementia in other diseases classified elsewhere with behavioral disturbance Status: Acute (4) Hyponatremia ICD Code: E87.1 - Hypo-osmolality and hyponatremia (5) Bipolar disorder ICD Code: F31.9 - Bipolar disorder, unspecified Status: Chronic Assessment and Plan 72-year-old male with acute onset of lethargy and weakness admitted on medical psych unit, medical team following for ongoing medical management. Lethargy Weakness - Recent fall but this is likely secondary to weakness rather than the cause. - Brain CT shows no acute disease or bleeding, knee x-rays negative - ABG with no acute reason for AMS/lethargy - ammonia level WNL - hyponatremia on BMP, likely the cause of lethargy. CBC with anemia which is not new. - swallow evaluation due to lethargy Hyponatremia - NA 120-->134 - Patient does not appear fluid overloaded - Will give NS bolus and continue IV NS@84ml/hr, NA tabs 1gm PO TID if able to take, check NA levels Q6hrs, fluid restrictions, Will consult nephrology. 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 Consider stopping tegretol Seizure disorder - No witnessed seizures - This could potentially be an etiology for his weakness and change in mental status - We'll consider EEG based on preliminary workup findings - Correct Na Benign prostatic hypertrophy - Hypothyroidism - These conditions are within normal limits on recent evaluations - Continue baseline management for these Cough - Concern for aspiration, afebrile with no WBC rise - Swallow evaluation, advance diet per ST - Chest x-ray reviewed and abnormal. No PNA or fluid overload Dilated esophagus. pt with h/o achalasia. Consult GI for eval. DYSPHAGIA- GI IS FOLLOWING FOR EGD ON TUESDAY WITH GI-- FAMILY HAS NOT CONSENTED TO THIS YET DVT prophylaxis - SCDs, recent fall Discussed with patient, nurse Discharge Planning PENDING PSYCHIATRIC CLEARANCE Problem Qualifiers (1) Bipolar disorder: Qualified Codes: F31.61 - Bipolar disorder, current episode mixed, mild Pipo Boyce DO Aug 01, 2017 09:27
--- NOTE | 2017-08-01 10:31 | HHI.NPPN ---
Subjective Interval History He is awake, alert. No complaints. NPO for EGD today. Sodium has improved. On D5NS while NPO. (Hortencia Saldivar) Review of Systems Ears, Nose, & Throat ENT Remarks dysphagia (Hortencia Saldivar) Objective Data Data Vital Signs Date Time Temp Pulse Resp B/P (MAP) Pulse Ox O2 Delivery O2 Flow Rate FiO2 08/01/17 04:50 98.3 66 16 124/75 (91) 99 07/31/17 18:54 98.1 62 17 133/62 (85) 99 (Hortencia Saldivar) -: 07/31/17 0644 07/31/17 0644 Physical Exam General Appearance: Well Developed, No Acute Distress, Comfortable (Hortencia Saldivar) Eyes Eye Exam: Pupils Equal (Hortencia Saldivar) Throat Throat Exam: Oral Mucosa Dierks & Moist (Hortencia Saldivar) Pulmonary Resp Exam: Clear Bilaterally, Breath Sounds Equal (Hortencia Saldivar) Cardiology CV Exam: Regular, Normal Sinus Rhythm (Hortencia Saldivar) Gastrointestinal/Abdomen GI Exam: Soft, Non-Tender (Hortencia Saldivar) Musculoskeletal MS Exam: Joints Intact, Normal Tone (Hortencia Saldivar) Integumentary Skin Exam: Warm, Dry (Hortencia Saldivar) Extremeties Extremities Exam: No Edema, Pedal Pulses Palpable (Hortencia Saldivar) Neurologic Neuro Exam: Alert, Awake, Speech Clear (Hortencia Saldivar) Psychiatric Psych Exam: Appropriate Responses (Hortencia Saldivar) Assessment/Plan Discussed Condition With: Patient Electrolyte Assessment: Hyponatremia Problem List: (1) Hyponatremia ICD Codes: E87.1 - Hypo-osmolality and hyponatremia Plan: Chronic, acutely worse SIAHD due to Tegretol, avoid this medication, he did receive one dose since admission On D5NS @ 30 CC/HR Needs solid food intake, however has achalasia and GI is following. Stop IVF when feeding resumes. On Salt tabs BID. May need to reduce dose or stop altogether as medication wears off. Free water restriction advised, 1500 ml per day If sodium level further improves, the medications, IVF, and fluid restriction potentially can be stopped. We will sign off at this time. (2) Bipolar disorder ICD Codes: F31.9 - Bipolar disorder, unspecified Status: Chronic Plan: Psych management (3) Dysphagia ICD Codes: R13.10 - Dysphagia, unspecified Plan: GI following May need EGD (oHrtencia Saldivar) Plan patient was seen and examined. Agree with above assessment and plan. (Sherman Mix MD) Problem Qualifiers (1) Bipolar disorder: Qualified Codes: F31.61 - Bipolar disorder, current episode mixed, mild Hortencia Saldivar Aug 01, 2017 10:31 Sherman Mix MD Aug 01, 2017 20:01
[2017-08-01] MEDS ORDERED: SUCCINYLCHOLINE CHLORIDE 200 MG/10 ML VIAL IV ONE (11:00)
[2017-08-01] MEDS ORDERED: PROPOFOL 200 MG/20 ML AMP IV ONE (11:00)
[2017-08-01] MEDS ORDERED: LIDOCAINE HCL 1% PF 5 ML SYRINGE OTHER ONE (11:00)
--- NOTE | 2017-08-01 11:32 | HHI.PYPN ---
Subjective Remarks Patient seen for follow-up, chart reviewed. Discussion nursing staff reported the patient has EGD scheduled for this morning and is patient's brother is his healthcare surrogate and initially refused but after speaking with him and agreed to the study. Patient was found lying in hospital bed, cooperative. Patient alert and oriented only to person and place but not to date or situation. Patient states that he has been feeling "okay", noted to have some speech latency during interview. Patient reports that he is aware of the EGD scheduled for him this morning he feels "okay with it". Patient continues to report having difficulty with swallowing and also continues to have some dizziness upon sitting or standing requiring assistance. Patient denies any auditory or visual hallucinations at this time. Crib Pad Maker spoke with patient's brother who reviewed the recommendations by GI consultation for EGD which brother had expressed wanting conservative measures for the brother. He also reports that their mother had a colonoscopy and states that she had " from it" stating that mother had resulted in colostomy and had shortly thereafter the study which brings on reservations about patient having any invasive interventions. He states that because of this history and context of possibility of requiring surgical intervention if masses found he states that he would want only conservative measures with his brother and not wanting any surgical procedures. Crib Pad Maker encouraged patient brother to speak with the medical team once results are in we will discuss what the recommendations are which she agreed. Consent for treatment of restarting psychotropic medications was reviewed with patient's health care surrogate who is his brother over the phone and agreed to restarting quetiapine for mood stabilization to address bipolar disorder. We will start quetiapine once patient is more medically stable and able to tolerate possible side effects. Review of Systems Except as stated in HPI: all other systems reviewed are Neg Mental Status Examination Appearance: Appropriate Consciousness: Lethargic Orientation: Person, Place Speech: Hesitant, Slow Language: Other Fund of Knowledge: Inadequate Attention and Concentration: Inadequate Memory: Impaired Mood: Other Affect: Blunt Thought Process & Associations: Linear Thought Content: Other ([place]) Hallucination Type: None Delusion Type: None Suicidal Ideation: No Suicidal Plan: No Suicidal Intention: No Homicidal Ideation: No Homicidal Plan: No Homicidal Intention: No Insight: Poor Judgment: Poor Results Vitals/IOs Vital Signs Date Time Temp Pulse Resp B/P (MAP) Pulse Ox O2 Delivery O2 Flow Rate FiO2 08/01/17 04:50 98.3 66 16 124/75 (91) 99 Assessment & Plan Problem List: (1) Delirium due to another medical condition ICD Codes: F05 - Delirium due to known physiological condition (2) Hyponatremia ICD Codes: E87.1 - Hypo-osmolality and hyponatremia (3) Bipolar disorder ICD Codes: F31.9 - Bipolar disorder, unspecified Status: Chronic (4) Dementia in other diseases classified elsewhere with behavioral disturbance ICD Codes: F02.81 - Dementia in other diseases classified elsewhere with behavioral disturbance Status: Acute Assessment & Plan Patient this time continues to be followed for medical stabilization from hyponatremia as well as dysphagia which GI consult team is currently working up. We will defer starting quetiapine until patient more medically stable as possibility of orthostatic hypotension may be significant and cause increased risk for falls as patient is already unsteady with ambulation. Continue recommendations as required medical team. Continue to monitor mood and behavior. Patient to have EGD done this morning. Discharge planning in progress. Justification for Cont. Inpt. At risk for further decompensation if at lower level of care Discharge Planning To be referred to a long term facility upon psychiatric and medical stabilization Problem Qualifiers (1) Bipolar disorder: Qualified Codes: F31.61 - Bipolar disorder, current episode mixed, mild Alessandro Interiano MD Aug 01, 2017 11:32
--- NOTE | 2017-08-01 13:05 | GIPROC ---
[facility] [address] [facility]. [facility], [address] EGD PROCEDURE REPORT EXAM DATE: 08/01/2017 PATIENT NAME: Tyler Catherine MR #: [id number] BIRTHDATE: 1945 ATTENDING: Kay Conte MD ORDER #: [id number] SLIP INJECTOR AND APPLICATOR: Erendira Santos RN STATUS: inpatient INDICATIONS: The patient is a 72 yr old male here for an EGD due to dyspepsia and dysphagia PROCEDURE PERFORMED: EGD w/ biopsy MEDICATIONS: Per Anesthesia and None. TOPICAL ANESTHETIC: CONSENT: The patient understands the risks and benefits of the procedure and understands that these risks include, but are not limited to: sedation, allergic reaction, infection, perforation and/or bleeding. Alternative means of evaluation and treatment include, among others: physical exam, x-rays, and/or surgical intervention. The patient elects to proceed with this endoscopic procedure. medical equipment was checked for proper function. Hand hygiene and appropriate measures for infection prevention was taken. After the risks, benefits and alternatives of the procedure were thoroughly explained, Informed consent was verified, confirmed and timeout was successfully executed by the treatment team. The patient was anesthetized with topical anesthesia and the HeyLets [id number] endoscope was introduced through the mouth and advanced to the second portion of the duodenum. Retroflexed views revealed a hiatal hernia The gastroscope was then slowly withdrawn and removed. ESOPHAGUS: There was LA Class D esophagitis noted. A biopsy was performed using cold forceps. Sample sent for histology. A near circumferential polypoid shaped and smooth mass, measuring 3 X 3cm in size, was found in the distal esophagus. Multiple biopsies were performed using cold forceps. Sample sent for histology. STOMACH: There was erythematous severe gastritis in the gastric antrum. DUODENUM: The duodenal mucosa appeared normal in the 2nd part of the duodenum. ADVERSE EVENTS: There were no complications. IMPRESSIONS: 1. There was LA Class D esophagitis noted; biopsy was performed 2. Near circumferential mass, measuring 3 X 3cm in size, was found in the distal esophagus; multiple biopsies were performed 3. There was erythematous gastritis in the gastric antrum 4. Normal duodenal mucosa in the 2nd part of the duodenum 5. Retroflexed views revealed a hiatal hernia RECOMMENDATIONS: 1. Await biopsy results. Biopsy results will not be ready for 7-10 days. If you don't hear from us in two weeks, call our office for biopsy results. 2. Anti-reflux regimen 3. Continue PPI 4. Diflucan 100mg daily x 7 PATIENT CONDITION: stable DISPOSITION: Inpatient REPEAT EXAM: Return 1 month EGD pending biopsy results Kay Conte MD eSigned: Kay Conte MD 08/01/2017 1:05 PM cc: PATIENT NAME: Tyler Catherine MR#: [id number]
[2017-08-01 15:36] LABS: BICARBONATE 28.1 MEQ/L (21.0-32.0); CALCIUM 9.1 MG/DL (8.5-10.1); CREATININE 0.91 MG/DL (0.60-1.30)
[2017-08-01] MEDS ORDERED: TYLE325T PO (15:40)
[2017-08-01] MEDS ORDERED: FAMO1TAB37 PO (15:40)
[2017-08-01] MEDS ORDERED: SODI1TAB PO (15:40)
[2017-08-01] MEDS ORDERED: MILKSUS PO (15:40)
[2017-08-01] MEDS ORDERED: LORA-474 PO (15:40)
[2017-08-01] MEDS ORDERED: LORA-474 IM (15:40)
== END 2017-08-01 11:30 | disposition home or self-care (01) | DRG 884 ==
LOC: H4EA 15:15
PROVIDERS: ADMIT Student in an Organized Health Care Education/Training Program; ATTEND Student in an Organized Health Care Education/Training Program
PROC: 0DB38ZX Excision of Lower Esophagus, Via Natural or Artificial Opening Endoscopic, Diagnostic (ICD-10-PCS; principal; 2017-08-01)
DX: F03.91 Unspecified dementia, unspecified severity, with behavioral disturbance (principal); E46 Unspecified protein-calorie malnutrition; B37.81 Candidal esophagitis; E22.2 Syndrome of inappropriate secretion of antidiuretic hormone; F05 Delirium due to known physiological condition; K22.0 Achalasia of cardia; G40.909 Epilepsy, unspecified, not intractable, without status epilepticus; Z68.1 Body mass index [BMI] 19.9 or less, adult; F31.9 Bipolar disorder, unspecified; E03.9 Hypothyroidism, unspecified; N40.0 Benign prostatic hyperplasia without lower urinary tract symptoms; D64.9 Anemia, unspecified; K44.9 Diaphragmatic hernia without obstruction or gangrene; K29.00 Acute gastritis without bleeding; S80.02XA Contusion of left knee, initial encounter; S80.01XA Contusion of right knee, initial encounter; T42.1X5A Adverse effect of iminostilbenes, initial encounter; W18.11XA Fall from or off toilet without subsequent striking against object, initial encounter; Y92.231 Patient bathroom in hospital as the place of occurrence of the external cause; Z91.14 Patient's other noncompliance with medication regimen; Z91.5 Personal history of self-harm
CPT/HCPCS: 36600; 70450; 71045; 71250; 73564; 74230; 80048; 80053; 80061; 82140; 82805; 83036; 83735; 84100; 84295; 84439; 84443; 85025; 85027; 93005; J0330; J2060; J2405; J7030; J7042

== ENCOUNTER 2017-08-01 12:39 | Inpatient (IN) | payer OTHER, MEDICAID, MEDICARE ==
[~2017-08-01 12:39] MED LIST changes: -DIFL100T PO; -FAMO1TAB37 PO; -LORA-474 IM; -LORA-474 PO; -MILKSUS PO; -Megestrol Liq PO; -PANT40TA3 PO; -RISP0.5T25 PO; -SODI1TAB PO; -TYLE325T PO
[2017-08-01] MEDS ORDERED: MILKSUS PO (15:40)
[2017-08-01] MEDS ORDERED: SODI1TAB PO (15:40)
[2017-08-01] MEDS ORDERED: FAMO1TAB37 PO (15:40)
[2017-08-01] MEDS ORDERED: TYLE325T PO (15:40)
[2017-08-01] MEDS ORDERED: LORA-474 PO (15:40)
[2017-08-01] MEDS ORDERED: LORA-474 IM (15:40)
[2017-08-01] MEDS: FLUCONAZOLE 100 MG TAB PO SCH (16:33)
[2017-08-01 18:00] VITALS: BP 122/73; PULSE 59; RESP 16; TEMP 97.7; O2SAT 100
[2017-08-01] MEDS ORDERED: MAGNESIUM HYDROXIDE SUSP 30 ML CUP PO PRN (18:15)
[2017-08-01] MEDS ORDERED: PADIMATE (CHAPSTICK) 4.5 GM TUBE TOPICAL PRN (18:15)
[2017-08-01] MEDS ORDERED: LACTULOSE SYRUP 20 GM/30 ML CUP PO PRN (18:15)
[2017-08-01] MEDS ORDERED: ACETAMINOPHEN 325 MG TAB PO PRN (18:15)
[2017-08-01] MEDS ORDERED: [UNRECOGNIZED DRUG - OTHER] PO PRN (18:15)
[2017-08-01] MEDS ORDERED: DOCUSATE SODIUM 100 MG CAP PO PRN (18:15)
[2017-08-01] MEDS ORDERED: ALUMINUM/MAGNESIUM/SIMETH 30 ML CUP PO PRN (18:15)
[2017-08-01] MEDS ORDERED: diphenhydrAMINE HCL 50 MG CAP PO PRN (18:15)
[2017-08-01] MEDS: DEXT 5%-NACL 0.9% 1000 ML INJ 1,000 ML IV SCH (19:00)
[2017-08-01] MEDS ORDERED: traZODone HCL 50 MG TAB PO SCH (21:00)
[2017-08-01] MEDS ORDERED: QUEtiapine FUMARATE 25 MG TAB PO SCH (21:00)
[2017-08-01] MEDS: FAMOTIDINE 20 MG TAB PO SCH (21:00)
[2017-08-01] MEDS: SODIUM CHLORIDE 1 GRAM TAB PO SCH (21:00)
[2017-08-01] MEDS: traZODone HCL 50 MG TAB PO PRN (21:20)
[2017-08-01] MEDS: diphenhydrAMINE HCL 50 MG CAP PO PRN (21:20)
[2017-08-02] MEDS: LEVOTHYROXINE SODIUM 75 MCG TAB PO SCH (05:23)
[2017-08-02 05:39] VITALS: BP 117/69; PULSE 64; RESP 17; TEMP 97.6; O2SAT 98
[2017-08-02] MEDS ORDERED: TAMSULOSIN HCL 0.4 MG CAP PO SCH (09:00)
--- NOTE | 2017-08-02 09:03 | HHI.HP ---
Provisional Diagnosis Admission Date Aug 01, 2017 at 13:59 [place] I. Bipolar disorder, dementia [place] III. Delirium, hyponatremia Certification of Person's Competence To Provide Express and Informed Consent I have personally examined Tyler Catherine , a person being served at [facility] on, Aug 02, 2017 08:49. Express and informed consent means consent voluntarily given in writing, by a competent person, after sufficient explanation and disclosure of the subject matter involved to enable the person to make a knowing and willful decision without any element of force, fraud, deceit, duress, or other form of constraint or coercion. This person is 18 years of age or older, is not now known to be incompetent to consent to treatment with a guardian advocate, and does not have a health care surrogate or proxy currently making medical treatment decisions. I have found this person to be one of the following: [] Competent to provide express and informed consent, as defined above, for voluntary admission to this facility and is competent to provide express and informed consent for treatment. He/she has the consistent capacity to make well reasoned, willful, and knowing decisions concerning his or her medical or mental health treatment. The person fully and consistently understands the purpose of the admission for examination/placement and is fully capable of personally exercising all rights assured under [place]] Incompetent to provide express and informed consent to voluntary admission , and this is incompetent to provide express and informed consent to treatment. The person must be transferred to involuntary status and a petition for a guardian advocate filed with the Circuit Court. [] Refusing to provide express and informed consent to voluntary admission but is competent to provide express and informed consent for treatment. The person must be discharged or transferred to involuntary status. Form shall be completed within 24 hours of a person's arrival at the receiving facility and filed in the clinical record of each person: 1. Admitted on a voluntary basis 2. Permitted to provide express and informed consent to his/her own treatment 3. Allowed to transfer from involuntary to voluntary status 4. Prior to permitting a person to consent to his or her own treatment after having been previously found incompetent to consent to treatment. History of Present Illness Capacity: Lacks Capacity HPI Patient is a 72-year-old man, domiciled in a fpc, with a past psychiatric history of bipolar disorder dementia, prior psychiatric hospitalizations, past medical history significant for hypothyroidism who was admitted recently on 07/10/17 and discharged on 07/18/17 to the medical service due to hyponatremia and was recently readmitted back to psychiatry service for further evaluation and management. Patient was initially discharged to go have EGD performed due to suspected mass as well as patient with history of achalasia and having dysphagia currently and was readmitted after the procedure. As per report patient was found to have a near circumferential mass measuring 3 x 3 cm in size in the distal esophagus which multiple biopsies were done during EGD. Discussion nursing staff reported the patient did not sleep well last evening was noted to be talking to self continue to be confused but eating better. Patient was found lying in hospital bed superficially cooperative noted to be irritable during interview. Patient states that he had been feeling "okay" reports tolerating procedure well yesterday morning, reports eating and drinking well. Patient continues to be alert and oriented only to person and place and noted to be somewhat irritable throughout interview and began to answer rest of questions with "I believe so" and ultimately dismissed freelance writer stating he did not want to continue to talk to be left alone. Family psychiatric history: Unable to assess due to patient's disorientation and cognitive deficits. Past psychiatric history: As per chart patient with a previous psychiatric diagnosis of bipolar disorder, dementia, previous psychiatric admissions, recently as stated above, unknown of previous suicide attempt with self interest behavior, last medication regimen included Tegretol and Seroquel and history of noncompliance with treatment. Substance use history: None as per chart Past medical history: Hypothyroidism, currently with hyponatremia Allergies: Depakote, methylphenidate, olanzapine Social history: Domiciled a fpc, minimal support systems Review of Systems Except as stated in HPI: all other systems reviewed are Neg Past Family Social History Coded Allergies: divalproex sodium (Unverified Allergy, Severe, 06/02/17) olanzapine (Unverified Allergy, Severe, 06/02/17) methylphenidate (Unverified Allergy, Unknown, 06/02/17) Active Scripts Diphenhydramine (Diphenhydramine) 25 Mg Cap, 25 MG PO HS Y for INSOMNIA, #30 CAP 0 Refills Prov:Tyler Batista MD 06/24/17 Levothyroxine (Levothyroxine) 75 Mcg Tab, 75 MCG PO DAILY for Thyroid, #30 TAB 0 Refills Prov:Tyler Batista MD 06/24/17 Tamsulosin (Flomax) 0.4 Mg Cap, 0.4 MG PO DAILY for health, #30 CAP 0 Refills Prov:Tyler Batista MD 06/24/17 [Lactulose] 30 ML SYRP No Conflict Check, 30 ML PO DAILY Y for SEVERE CONSITIPATION for 30 Days, ML Prov:Karla Hernandez MD 12/19/16 Reported Medications Magnesium Hydroxide Liq (Milk of Magnesia Liq) 400 Mg/5 Ml Susp, 30 ML PO DAILY Y for MILD CONSTIPATION, #1 BOTTLE 0 Refills 08/01/17 Acetaminophen (Tylenol) 325 Mg Tab, 650 MG PO Q4H Y for PAIN 1-5 OR TEMP>101, TAB 0 Refills 08/01/17 Lorazepam (Ativan) 1 Mg Tab, 1 MG IM Q6H Y for MODERATE TO SEVERE ANXIETY, TAB 0 Refills 08/01/17 Lorazepam (Ativan) 1 Mg Tab, 1 MG PO Q6H Y for MODERATE TO SEVERE ANXIETY, TAB 0 Refills 08/01/17 Famotidine (Pepcid) 20 Mg Tab, 20 MG PO HS, #60 TAB 0 Refills 08/01/17 Sodium Chloride (Sodium Chloride) 1 Gram Tab, 1 GM PO BID for Electrolyte Replacement, TAB 0 Refills 08/01/17 Trazodone (Trazodone) 50 Mg Tab, 50 MG PO HS for Control Depression, #30 TAB 0 Refills 07/08/17 Docusate Sodium (Docusate Sodium) 100 Mg Cap, 100 MG PO BID Y for CONSTIPATION, #60 CAP 0 Refills 06/02/17 Current Medications Medications (Trade) Dose Ordered Sig/Kerry Route Start Time Stop Time Status Last Admin (Diflucan) 100 mg Q24H PO 08/01/17 17:00 08/07/17 17:01 08/01/17 16:33 (Tylenol) 650 mg Q4H PRN PO 08/01/17 18:15 (Milk Of Magnesia Liq) 30 ml DAILY PRN PO 08/01/17 18:15 (Mag-Al Plus Susp Liq) 30 ml Q6H PRN PO 2/19/18 18:15 (Colace) 100 mg BID PRN PO 08/01/17 18:15 (Pepcid) 20 mg HS PO 08/01/17 21:00 08/01/17 21:00 (Synthroid) 75 mcg DAILY@0600 PO 08/02/17 06:00 08/02/17 05:23 (Sodium Chloride) 1 gm BID PO 08/01/17 21:00 08/01/17 21:00 (Flomax) 0.4 mg DAILY PO 08/02/17 09:00 (Benadryl) 25 mg Q6H PRN PO 08/01/17 18:15 08/01/17 21:20 (Chapstick) 1 applic UNSCH PRN TOPICAL 08/01/17 18:15 (Lactulose Liq) 30 ml DAILY PRN PO 08/01/17 18:15 (Desyrel) 50 mg HS PRN PO 08/01/17 21:00 08/01/17 21:20 (SEROquel) 50 mg HS PO 08/01/17 21:00 08/01/17 21:00 Dextrose/Sodium Chloride 1,000 ml @ 30 mls/hr Q24H IV 08/01/17 19:00 08/01/17 19:00 Physical Exam Patient not noted to be in acute distress, no gross motor abnormalities, no tremors or EPS, no noted psychomotor retardation or agitation. Vital Signs Vital Signs Date Time Temp Pulse Resp B/P (MAP) Pulse Ox O2 Delivery O2 Flow Rate FiO2 08/02/17 05:39 97.6 64 17 117/69 (85) 98 I/O 08/02/17 08/02/17 08/03/17 08:00 16:00 00:00 Intake Total 0 ml 60 ml Balance 0 ml 60 ml Mental Status Examination Appearance: Disheveled Consciousness: Somnolent Orientation: Person, Place Motor Activity: Abnormal gait Speech: Hesitant, Slow Language: Adequate Fund of Knowledge: Inadequate Attention and Concentration: Inadequate Memory: Impaired Mood: Irritable Affect: Irritable Thought Process & Associations: Other ([place]) Thought Content: Other Hallucination Type: None Delusion Type: None Suicidal Ideation: No Suicidal Plan: No Suicidal Intention: No Homicidal Ideation: No Homicidal Plan: No Homicidal Intention: No Insight: Poor Judgment: Poor Assessment & Plan Problem List: (1) Bipolar disorder ICD Codes: F31.9 - Bipolar disorder, unspecified Status: Chronic (2) Dementia in other diseases classified elsewhere with behavioral disturbance ICD Codes: F02.81 - Dementia in other diseases classified elsewhere with behavioral disturbance Status: Acute (3) Hyponatremia ICD Codes: E87.1 - Hypo-osmolality and hyponatremia Assessment & Plan Patient at this time continues to be followed by medical team for hyponatremia as well as nephrology for the same and GI consultants which patient had a recent EGD performed yesterday morning and will await biopsy results several days. Consults input appreciated. Patient noted to be irritable with still noted confusion. We will continue and increase quetiapine to 100 mg p.o. at bedtime for mood stabilization as well as for sleep disturbance. Continue rest of medications. Continue recommendations as per prior medical team. Discharge planning in progress. Discharge Planning To be determined. Alessandro Interiano MD Aug 02, 2017 09:03
[2017-08-02] MEDS: SODIUM CHLORIDE 1 GRAM TAB PO SCH ×2 (09:30→20:20)
--- NOTE | 2017-08-02 12:36 | HHI.PR ---
Subjective Remarks answers most questions saying I do not know had egd yesterday and returned back to psych unit no acute complication on full liquid pathology reports reviewed limited historian Objective Vitals Vital Signs Date Time Temp Pulse Resp B/P (MAP) Pulse Ox O2 Delivery O2 Flow Rate FiO2 08/02/17 05:39 97.6 64 17 117/69 (85) 98 08/01/17 18:00 97.7 59 16 122/73 (89) 100 I/O 08/01/17 08/01/17 08/01/17 08/02/17 08/02/17 08/02/17 07:00 15:00 23:00 07:00 15:00 23:00 Intake Total 600 ml 1200 ml 420 ml Balance 600 ml 1200 ml 420 ml Intake Oral 600 ml 1200 ml 420 ml # Voids 1 2 # Bowel Movements 2 1 Objective Remarks awake but answers questions stating "I dont know" to most parts pleasant heart rate is regular, no murmur lung sounds are diminished but equal bilaterally abdomen is soft and non tender, no rebound or guarding LE no calf asymmetry or edema, non tender A/P Assessment and Plan Impression: 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 Hiatal hernia. Plan: EGD 08/01/17 showed class D esophagitis. Near circumferential mass 3 x 3 cm in size found in the distal esophagus. Multiple biopsies were taken. We'll follow up. Ana on EGD Patient needs to be upright to assist with esophageal emptying. Diflucan for 7 days. Mechanical soft diet Will need further hx and monitoring as pt is not communicating much. Nursing staff reports pt is more interactive other times, walks to bathroom, etc DVT prophylaxis with ambulation GI prophylaxis on pepcid Discharge Planning patient, nursing staff Dileep Ham MD Aug 02, 2017 12:36
--- NOTE | 2017-08-02 14:51 | HHI.GIFU ---
Subjective Remarks Pt confused, not answering question appropriately Spoke with RN who states he is tolerating full liquids and she would like to advance to mechanical soft (Carrie Shrestha) Objective Vitals I&O Vital Signs Date Time Temp Pulse Resp B/P (MAP) Pulse Ox O2 Delivery O2 Flow Rate FiO2 08/02/17 05:39 97.6 64 17 117/69 (85) 98 08/01/17 18:00 97.7 59 16 122/73 (89) 100 I/O 08/01/17 08/01/17 08/01/17 08/02/17 08/02/17 08/02/17 07:00 15:00 23:00 07:00 15:00 23:00 Intake Total 600 ml 1200 ml 420 ml Balance 600 ml 1200 ml 420 ml Intake Oral 600 ml 1200 ml 420 ml # Voids 1 2 # Bowel Movements 2 1 Physical Exam HEENT: Normocephalic; atraumatic CHEST: Even/unlabored CARDIAC: RRR ABDOMEN: Soft, nondistended, bowel sounds active EXTREMITIES: No clubbing, cyanosis, or edema. SKIN: Normal; no rash; no jaundice. MEDICAL ASSISTING PROGRAM DIRECTOR: Awake, confused (Carrie Shrestha) Assessment and Plan Plan ASSESSMENT/history - dysphagia - appears chronic, pt admits hx achalasia. c/o bolus sensation. CT chest indicated he has had gastric surgery, dilated esophagus with luminal debris. No aspiration seen Barium swallow 07/29/17 Enlarged dilated esophagus that does contain residual food. Surgical clips seen at the GE junction. Possible mass present at the GE junction. Patient needs to be upright to assist with esophageal emptying. Probable long- standing either achalasia or partial obstruction with surgical clips in the GE junction. There is the suggestion of the mass at the GE junction as well. Suggest viewing. Palliative care saw patient for consult. Currently patient has some confusion but is more cooperative today per the staff than before the last few days. Patient denies any nausea or vomiting. Continues with IV fluids at 84 cc an hour. 07/30/17 pt resting in bed. per RN does not want procedures and wants to . d/w brother Tito Catherine barium swallow findings, , He and other brother Tyler would like to see if pt can be made more stable from psych point of view so that he could make his own decision about pursuing EGD. (07/23) S/P EGD yesterday --> Class D esophagitis, biopsy. Near circumferential mass 3x3 cm in size, was found in the distal esophagus, multiple biopsies. Erythematous gastritis in the gastric antrum. Normal duodenal mucosa in the 2nd part of the duodenum., Hiatal hernia. Plan: Advance diet to mechanical soft EGD biopsy pending Diflucan started last night, continue x 7 days Further recommendations based on findings of above Pt has been seen and examined by myself and Dr. Luque and this note is written on his behalf (Carrie Shrestha) Physician Comments Seen and examined with PUBLIC RELATIONS PROFESSIONAL< s/p egd with ? distal esophageal mass and candidiasis. Started on diflucan, monitor for drug interactions. Advance diet as tolerated. (Kay Conte MD) Carrie Shrestha Aug 02, 2017 14:51 Kay Conte MD Aug 02, 2017 15:23
[2017-08-02] MEDS ORDERED: LORazepam 0.5 MG TAB PO ONE (15:00)
[2017-08-02] MEDS: FLUCONAZOLE 100 MG TAB PO SCH (17:00)
[2017-08-02 17:37] VITALS: BP 130/67; PULSE 73; RESP 18; TEMP 98.1; O2SAT 94
[2017-08-02] MEDS: DEXT 5%-NACL 0.9% 1000 ML INJ 1,000 ML IV SCH (18:52)
[2017-08-02] MEDS: diphenhydrAMINE HCL 50 MG CAP PO PRN (20:20)
[2017-08-02] MEDS: traZODone HCL 50 MG TAB PO PRN (20:20)
[2017-08-02] MEDS: FAMOTIDINE 20 MG TAB PO SCH (20:20)
[2017-08-02] MEDS ORDERED: QUEtiapine FUMARATE 100 MG TAB PO SCH (21:00)
[2017-08-03 04:04] VITALS: BP 102/57; PULSE 65; RESP 16; TEMP 97.8; O2SAT 99
[2017-08-03] MEDS: LEVOTHYROXINE SODIUM 75 MCG TAB PO SCH (06:15)
--- NOTE | 2017-08-03 09:35 | HHI.PR ---
Subjective Remarks sleepy again today, pleasant but only answers questions by nodding or shaking head GI notes reviewed Objective Vitals Vital Signs Date Time Temp Pulse Resp B/P (MAP) Pulse Ox O2 Delivery O2 Flow Rate FiO2 08/03/17 04:04 97.8 65 16 102/57 (72) 99 08/02/17 17:37 98.1 73 18 130/67 (88) 94 I/O 08/02/17 08/02/17 08/02/17 08/03/17 08/03/17 08/03/17 07:00 15:00 23:00 07:00 15:00 23:00 Intake Total 1200 ml 420 ml 900 ml Balance 1200 ml 420 ml 900 ml Intake Oral 1200 ml 420 ml 900 ml # Voids 2 2 2 # Bowel Movements 1 Dileep Ham MD Aug 03, 2017 09:35
[2017-08-03 09:55] VITALS: BP 101/55; PULSE 62; RESP 14; TEMP 97.5; O2SAT 98
--- NOTE | 2017-08-03 21:38 | HHI.DS ---
Psychiatry Discharge Summary Inpatient Psychiatric care?: Yes Advance Directive: No Reason Not Provided: education provided Mental Health AdvanceDirective: No Health Care Proxy: No Admission Admission Date Aug 01, 2017 at 13:59 Admission Diagnosis: (1) Bipolar disorder ICD Code: F31.9 - Bipolar disorder, unspecified (2) Dementia in other diseases classified elsewhere with behavioral disturbance ICD Code: F02.81 - Dementia in other diseases classified elsewhere with behavioral disturbance (3) Hyponatremia ICD Code: E87.1 - Hypo-osmolality and hyponatremia Brief History Patient is a 72-year-old man, domiciled in a care home, with a past psychiatric history of bipolar disorder dementia, prior psychiatric hospitalizations, past medical history significant for hypothyroidism who was admitted recently on 07/10/17 and discharged on 07/18/17 to the medical service due to hyponatremia and was recently readmitted back to psychiatry service for further evaluation and management. Patient was initially discharged to go have EGD performed due to suspected mass as well as patient with history of achalasia and having dysphagia currently and was readmitted after the procedure. As per report patient was found to have a near circumferential mass measuring 3 x 3 cm in size in the distal esophagus which multiple biopsies were done during EGD. Discussion nursing staff reported the patient did not sleep well last evening was noted to be talking to self continue to be confused but eating better. Patient was found lying in hospital bed superficially cooperative noted to be irritable during interview. Patient states that he had been feeling "okay" reports tolerating procedure well yesterday morning, reports eating and drinking well. Patient continues to be alert and oriented only to person and place and noted to be somewhat irritable throughout interview and began to answer rest of questions with "I believe so" and ultimately dismissed show card writer stating he did not want to continue to talk to be left alone. Family psychiatric history: Unable to assess due to patient's disorientation and cognitive deficits. Past psychiatric history: As per chart patient with a previous psychiatric diagnosis of bipolar disorder, dementia, previous psychiatric admissions, recently as stated above, unknown of previous suicide attempt with self interest behavior, last medication regimen included Tegretol and Seroquel and history of noncompliance with treatment. Substance use history: None as per chart Past medical history: Hypothyroidism, currently with hyponatremia Allergies: Depakote, methylphenidate, olanzapine Social history: Domiciled a care home, minimal support systems Tobacco Use In Past 30 Days: No Tobacco Past 30 Days Alcohol Use: Never Hospital Course Patient is a 72-year-old man, domiciled in a care home, with a past psychiatric history of bipolar disorder dementia, prior psychiatric hospitalizations, past medical history significant for hypothyroidism who was admitted recently on 07/10/17 and discharged on 07/18/17 to the medical service due to hyponatremia and was recently readmitted back to psychiatry service for further evaluation and management, again discharged for EGD and readmitted back to psychiatry for further management. Patient was found to have 3x3 mass in distal esophagus and continued to be followed by medical team. He was restarted on quetiapine and titrated up to 100mg PO HS. Patient after being back on the psychiatry unit overnight had required an emergency response team the next morning as patient was found to be unresponsive during assistance in the restroom which patient was discharged to the ICU for further evaluation and medical management. Patient had continued to be noted with marked confusion, disorientation, and continued to be appearing more in delirium secondary to current medical issues. Since readmission patient had not endorsed any prominent psychiatric symptoms aside from occasional irritability and visual hallucinations but no auditory hallucinations nor any other manic symptom. Patient transferred and discharged to medical service. Results Blood Pressure 101 / 55 Vital Signs Date Time Temp Pulse Resp B/P (MAP) Pulse Ox O2 Delivery O2 Flow Rate FiO2 08/03/17 09:55 97.5 62 14 101/55 (70) 98 abnormal Summary of Procedures None Pending results at discharge: No Medications # of Antipsychotic meds at D/C: 1 Approp Antipsych med options 1 - Minimum of three failed multiple trials of monotherapy. 2 - Documented plan to taper to monotherapy due to previous use of multiple meds OR cross-taper in progress at D/C. 3 - Documentation of augmentation of Clozapine. 4 - Justification other than those listed in allowable values 1-3, document here : Discharge Discharge Date: Aug 03, 2017 Discharge Diagnosis: (1) Hyponatremia ICD Code: E87.1 - Hypo-osmolality and hyponatremia (2) Bipolar disorder ICD Code: F31.9 - Bipolar disorder, unspecified Status: Chronic (3) Dementia in other diseases classified elsewhere with behavioral disturbance ICD Code: F02.81 - Dementia in other diseases classified elsewhere with behavioral disturbance Status: Acute Pt Condition on Discharge: Deteriorating Discharge Disposition: Disch to Another Hospital Discharge Instructions Diet Instructions: As Tolerated, No Restrictions Additional Diet Instructions: mecahnical soft. enlive Activities you can perform: Regular-No Restrictions Discharge Time > 30 minutes Mental Status Examination Appearance: Disheveled Consciousness: Lethargic Orientation: Person, Place Motor Activity: Abnormal gait Speech: Hesitant, Slow Language: Adequate Fund of Knowledge: Inadequate Attention and Concentration: Inadequate Memory: Impaired Mood: Irritable Affect: Irritable Thought Process & Associations: Other ([place]) Thought Content: Other Hallucination Type: None Delusion Type: None Suicidal Ideation: No Suicidal Plan: No Suicidal Intention: No Homicidal Ideation: No Homicidal Plan: No Homicidal Intention: No Insight: Poor Judgment: Poor Discharge/Advance Care Plan Health Problems: (1) Bipolar disorder (2) Dementia in other diseases classified elsewhere with behavioral disturbance (3) Hyponatremia Goals to promote your health * To prevent worsening of your condition and complications * To maintain your health at the optimal level Directions to meet your goals Take your medications as prescribed Follow your dietary instruction Follow activity as directed Keep your appointments as scheduled Take your immunizations and boosters as scheduled If your symptoms worsen call your PCP, if no PCP go to Urgent Care Center or Emergency Room For 24/ questions related to your inpatient stay or results of tests pending at discharge, please contact Dr. Alessandro Interiano at Smoking is Dangerous to Your Health. Avoid second hand smoking Alessandro Interiano MD Aug 03, 2017 21:38
== END 2017-08-03 09:55 | disposition short-term general hospital (02) | DRG 884 ==
LOC: H4EA 13:59
PROVIDERS: ADMIT Student in an Organized Health Care Education/Training Program; ATTEND Student in an Organized Health Care Education/Training Program
DX: F03.91 Unspecified dementia, unspecified severity, with behavioral disturbance (principal); B37.81 Candidal esophagitis; K22.0 Achalasia of cardia; E22.2 Syndrome of inappropriate secretion of antidiuretic hormone; F25.9 Schizoaffective disorder, unspecified; G40.909 Epilepsy, unspecified, not intractable, without status epilepticus; F31.9 Bipolar disorder, unspecified; E03.9 Hypothyroidism, unspecified; G47.9 Sleep disorder, unspecified; T42.1X5A Adverse effect of iminostilbenes, initial encounter; N40.0 Benign prostatic hyperplasia without lower urinary tract symptoms; K29.70 Gastritis, unspecified, without bleeding; K44.9 Diaphragmatic hernia without obstruction or gangrene; Z91.19 Patient's noncompliance with other medical treatment and regimen
CPT/HCPCS: 88305; 88312; J7042; Q0163

== ENCOUNTER → 2017-08-01 | Outpatient (CLI) | payer MEDICAID ==
[~2017-08-01] MED LIST changes: -CARB100C PO; +DIFL100T PO; +FAMO1TAB37 PO; +LORA-474 IM; +LORA-474 PO; +MILKSUS PO; +Megestrol Liq PO; +PANT40TA3 PO; +RISP0.5T25 PO; -RISP1 PO; -SERO400T PO; +SODI1TAB PO; +TYLE325T PO
--- NOTE | 2017-08-01 13:05 | GIPROC ---
[facility] [address] [facility]. [facility], [address] EGD PROCEDURE REPORT EXAM DATE: 08/01/2017 PATIENT NAME: Tyler Catherine MR #: [id number] BIRTHDATE: 1945 ATTENDING: Kay Conte MD ORDER #: [id number] DORMITORY COUNSELOR: Erendira Santos RN STATUS: inpatient INDICATIONS: The patient is a 72 yr old male here for an EGD due to dyspepsia and dysphagia PROCEDURE PERFORMED: EGD w/ biopsy MEDICATIONS: Per Anesthesia and None. TOPICAL ANESTHETIC: CONSENT: The patient understands the risks and benefits of the procedure and understands that these risks include, but are not limited to: sedation, allergic reaction, infection, perforation and/or bleeding. Alternative means of evaluation and treatment include, among others: physical exam, x-rays, and/or surgical intervention. The patient elects to proceed with this endoscopic procedure. medical equipment was checked for proper function. Hand hygiene and appropriate measures for infection prevention was taken. After the risks, benefits and alternatives of the procedure were thoroughly explained, Informed consent was verified, confirmed and timeout was successfully executed by the treatment team. The patient was anesthetized with topical anesthesia and the Skyera [id number] endoscope was introduced through the mouth and advanced to the second portion of the duodenum. Retroflexed views revealed a hiatal hernia The gastroscope was then slowly withdrawn and removed. ESOPHAGUS: There was LA Class D esophagitis noted. A biopsy was performed using cold forceps. Sample sent for histology. A near circumferential polypoid shaped and smooth mass, measuring 3 X 3cm in size, was found in the distal esophagus. Multiple biopsies were performed using cold forceps. Sample sent for histology. STOMACH: There was erythematous severe gastritis in the gastric antrum. DUODENUM: The duodenal mucosa appeared normal in the 2nd part of the duodenum. ADVERSE EVENTS: There were no complications. IMPRESSIONS: 1. There was LA Class D esophagitis noted; biopsy was performed 2. Near circumferential mass, measuring 3 X 3cm in size, was found in the distal esophagus; multiple biopsies were performed 3. There was erythematous gastritis in the gastric antrum 4. Normal duodenal mucosa in the 2nd part of the duodenum 5. Retroflexed views revealed a hiatal hernia RECOMMENDATIONS: 1. Await biopsy results. Biopsy results will not be ready for 7-10 days. If you don't hear from us in two weeks, call our office for biopsy results. 2. Anti-reflux regimen 3. Continue PPI 4. Diflucan 100mg daily x 7 PATIENT CONDITION: stable DISPOSITION: Inpatient REPEAT EXAM: Return 1 month EGD pending biopsy results Kay Conte MD eSigned: Kay Conte MD 08/01/2017 1:05 PM cc: PATIENT NAME: Tyler Catherine MR#: [id number] MTDD
[2017-08-01 13:12] VITALS: TEMP 96.2
[2017-08-01 13:40] VITALS: BP 115/75; PULSE 59; RESP 15; O2SAT 97
== END ==
LOC: HEND 13:42
PROVIDERS: ATTEND Internal Medicine Gastroenterology
DX: R13.10 Dysphagia, unspecified (principal); K20.9 Esophagitis, unspecified; R10.13 Epigastric pain; K44.9 Diaphragmatic hernia without obstruction or gangrene; K29.70 Gastritis, unspecified, without bleeding; K22.8 Other specified diseases of esophagus; B37.81 Candidal esophagitis
CPT/HCPCS: 88305; 88312

== ENCOUNTER 2017-08-03 10:12 | Inpatient (IN) | payer OTHER, MEDICAID, MEDICARE ==
[2017-08-03] VITALS (12 sets, daily range): BP systolic 114–137; BP diastolic 55–76; PULSE 52–68; RESP 13–25; TEMP 97.9–98; O2SAT 100
[~2017-08-03 10:12] MED LIST changes: +FAMO1TAB37 PO; +LORA-474 IM; +LORA-474 PO; +MILKSUS PO; +SODI1TAB PO; +TYLE325T PO
--- NOTE | 2017-08-03 10:27 | HHI.HP ---
[facility] Non-Staff Admission Diagnosis Diagnoses: Travel History International Travel<30 Days: No Contact w/Intl Traveler <30 Da: No Traveled to Known Affected Are: No History of Present Illness History from review of medical records, patient himself, nursing staff. Patient is known to me from yesterday's rounds. Patient was admitted and at the psychiatrist's care in medical psychiatry unit. He was being managed for dysphagia, hyponatremia, schizoaffective disorder, poor oral intake. This morning, I have rounded on the patient and psychiatry unit. He was pretty much the same as what he was yesterday, sleeping most suturing the interview, only answered yes or no questions by nodding his head. He did not have his breakfast yet at the time of my exam. I then discussed with patient's nurse about his case and I was reassured that he was much more awake alert yesterday evening and was even agitated overnight for which his Seroquel was increased last night from 50 to 100 mg. I then went on to round another patient in the same unit and within about 30 minutes or so nursing staff came to get me immediately because patient was unresponsive. Patient was sitting on the toilet at that time. His nurse was at the bedside. Patient was noted to be wet, and responsive with eyes almost rolling. His nurse reported that she was given him a wet towel bath and he immediately became unresponsive, noncommunicative, and pale. Which is why she called out for me. We then placed him back on his bed and on questioning, patient was not really given any answers. Rapid response was called immediately. Vitals at the time where saturation of 95% on 2 L nasal cannular, blood pressure around 105/60, heart rate of 80. His blood sugar was 110 or so. However patient was just not looking well, and not really responsive. Therefore transferred patient to ICU stat for possible worsening/hemodynamic instability. 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 Physical Exam Physical Exam GENERAL: This is elderly gentleman, quite pale, diaphoretic versus being wet from having a towel past by nurse. Lethargic, unresponsive initially at the time of event. It is slowly woke up and started talking appropriately though with severe generalized weakness. SKIN: No rashes, ecchymoses or lesions. Cool and dry. HEAD: Atraumatic. Normocephalic. No temporal or scalp tenderness. EYES: No scleral icterus. No injection or drainage. ENT: Nose without bleeding, purulent drainage or septal hematoma. Airway patent. NECK: Trachea midline. No JVD CARDIOVASCULAR: Regular rate and rhythm without murmurs, gallops, or rubs. RESPIRATORY: Bilaterally decreased air entry GASTROINTESTINAL: Abdomen soft, non-tender, nondistended. No guarding. MUSCULOSKELETAL: Extremities without clubbing, cyanosis, or edema. No calf tenderness. NEUROLOGICAL: Awake and alert. Motor and sensory grossly within normal limits. Normal speech. Laboratory Labs from previous days reviewed. Imaging Imaging studies from previous days reviewed. Barium swallow July 29, 2017. Enlarged dilated esophagus that contain residual food. Surgical clips at GE junction. Possible mass at GE junction. CT chest. Gastric surgery evidence, with dilated esophagus with luminal debris. Caprini VTE Risk Assessment Caprini VTE Risk Assessment: Mod/High Risk (score >= 2) Caprini Risk Assessment Model Point Value = 1 Point Value = 2 Point Value = 3 Point Value = 5 Age 41-60 Minor surgery BMI > 25 kg/m2 Swollen legs Varicose veins or History of unexplained or recurrent spontaneous Oral contraceptives or hormone replacement Sepsis (< 1 month) Serious lung disease, including pneumonia (< 1 month) Abnormal pulmonary function Acute myocardial infarction Congestive heart failure (< 1 month) History of inflammatory bowel disease Medical patient at bed rest Age 61-74 Arthroscopic surgery Major open surgery (> 45 min) Laparoscopic surgery (> 45 min) Malignancy Confined to bed (> 72 hours) Immobilizing plaster cast Central venous access Age >= 75 History of VTE Family history of VTE Factor V Leiden Prothrombin [id number] Lupus anticoagulant Anticardiolipin antibodies Elevated serum homocysteine Heparin-induced thrombocytopenia Other congenital or acquired thrombophilia Stroke (< 1 month) Elective arthroplasty Hip, pelvis, or leg fracture Acute spinal cord injury (< 1 month) Prophylaxis Regimen Total Risk Factor Score Risk Level Prophylaxis Regimen 0-1 Low Early ambulation 2 Moderate Order ONE of the following: *Sequential Compression Device (SCD) *Heparin 5000 units SQ BID 3-4 Higher Order ONE of the following medications: *Heparin 5000 units SQ TID *Enoxaparin/Lovenox 40 mg SQ daily (WT < 150 kg, CrCl > 30 mL/min) *Enoxaparin/Lovenox 30 mg SQ daily (WT < 150 kg, CrCl > 10-29 mL/min) *Enoxaparin/Lovenox 30 mg SQ BID (WT < 150 kg, CrCl > 30 mL/min) AND/OR *Sequential Compression Device (SCD) 5 or more Highest Order ONE of the following medications: *Heparin 5000 units SQ TID (Preferred with Epidurals) *Enoxaparin/Lovenox 40 mg SQ daily (WT < 150 kg, CrCl > 30 mL/min) *Enoxaparin/Lovenox 30 mg SQ daily (WT < 150 kg, CrCl > 10-29 mL/min) *Enoxaparin/Lovenox 30 mg SQ BID (WT < 150 kg, CrCl > 30 mL/min) AND *Sequential Compression Device (SCD) Assessment and Plan Assessment and Plan Impression: Altered mental status/lethargy. Suspect impending shock. Possible seizures Suspect worsening hemodynamic instability Suspects medications reaction. Patient's Seroquel dose was increased last night. He also received Benadryl, trazodone together with Seroquel 100 mg by mouth last night. Syncope. Likely vasovagal from poor oral intake, increased medications overnight. EGD 08/01/17 showed class D esophagitis. Near circumferential mass 3 x 3 cm in size found in the distal esophagus. Multiple biopsies were taken. We'll follow up. Gastritis. Hiatal hernia. 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 Patient is transferred to ICU stat. Blood pressures upon arrival to ICU was 90s over 50s. However patient clinically is looking much better even without intervention. He is awake, alert, oriented and stated he was just taking a bath and next thing he knows, he was transferred out here. He still continued to look pale although he is much more verbally responsive. We'll obtain serial cardiac enzymes and EKGs. Head CT stat. Fluid bolus 1 L normal saline. Chest x-ray stat to rule out pneumothorax given that patient had recent EGD and intubation. Continue maintenance IV fluids at D5 half normal saline with 20 mEq of KCl at 100 cc per hour. CBC and CMP stat. We'll follow sodium levels. Continue sodium tablets for now. EEG carotids Patient needs to be upright to assist with esophageal emptying. Diflucan for 7 days. Mechanical soft diet We'll follow-up all workup as above. Monitor fingersticks. Hold antihypertensive medications. Hold oral hypoglycemics and long-acting insulins. We'll continue hydration with D5 since patient is not eating or drinking well. Hold psychiatry meds for now. We'll need to scale back Seroquel in view of hypotension DVT prophylaxis with Lovenox. GI prophylaxis on pepcid Discussed Condition With patient, nursing staff Physician Certification 2 Midnight Certification Type: Admission for Inpatient Services Order for Inpatient Services The services are ordered in accordance with Medicare regulations or non- Medicare payer requirements, as applicable. In the case of services not specified as inpatient-only, they are appropriately provided as inpatient services in accordance with the 2-midnight benchmark. Estimated LOS (days): 2 days is the estimated time the patient will need to remain in the hospital, assuming treatment plan goals are met and no additional complications. Post-Hospital Plan: Not yet determined Dileep Ham MD Aug 03, 2017 10:27
[2017-08-03] MEDS ORDERED: SODIUM CHLORIDE 0.9% FLUSH 10 ML FLUSH IV FLUSH PRN (10:30)
[2017-08-03] MEDS ORDERED: NALOXONE HCL 0.4 MG/ML AMP IV PUSH PRN (10:45)
[2017-08-03] MEDS ORDERED: SODIUM CHLOR 0.9% 1000 ML INJ 1,000 ML IV ONE (10:45)
[2017-08-03] MEDS ORDERED: ACETAMINOPHEN 325 MG TAB PO PRN (11:15)
[2017-08-03 11:27] LABS: ALBUMIN 3.4 GM/DL (3.4-5.0); ALKALINE PHOSPHATASE 72 U/L (45-117); ALT (GPT) 52 U/L (12-78); AST (GOT) 31 U/L (15-37); BICARBONATE 28.1 MEQ/L (21.0-32.0); BLOOD UREA NITROGEN 15 MG/DL (7-18); CHLORIDE 100 MEQ/L (98-107); CREATININE 1.02 MG/DL (0.60-1.30); GLOMERULAR FILTRATION RATE 72 ML/MIN (>89); GLUCOSE,RANDOM 74 MG/DL (74-106); SODIUM (NA) 135 MEQ/L (136-145); TOTAL BILIRUBIN ADULT 0.4 MG/DL (0.2-1.0); TOTAL PROTEIN 6.5 GM/DL (6.4-8.2); TROPONIN I LESS THAN 0.02 NG/ML (0.02-0.05)
--- NOTE | 2017-08-03 11:32 | RADRPT ---
EXAM DATE/TIME: 08/03/2017 10:40 [facility] COMPARISON: BARIUM SWALLOW, July 29, 2017, 9:38. CHEST SINGLE AP, July 27, 2017, 10:24. INDICATIONS : Evaluate for Pneumothorax. MEDICAL HISTORY : Bi-Polar disorder. SURGICAL HISTORY : Appendectomy. ENCOUNTER: Subsequent ACUITY: 2 weeks PAIN SCORE: 0/10 LOCATION: Bilateral chest FINDINGS: The lungs are symmetrically aerated and clear. No evidence of pneumothorax. Large air-containing st ructure in the right superior and mid mediastinum correlates with marked esophageal dilation. The he art is normal in size. Both hemidiaphragms are well delineated. CONCLUSION: The lungs are clear. No evidence of pneumothorax. Jc Watson MD on August 03, 2017 at 11:29 Board Certified Radiologist. This report was verified electronically.
[2017-08-03] MEDS: D5-1/2 NS + KCL 20 MEQ INJ 1,000 ML IV SCH ×2 (12:00→19:43)
[2017-08-03 12:08] LABS: AUTOMATED NEUTROPHIL # 3.7 TH/MM3 (1.8-7.7); BASOPHIL % 0.7 % (0.0-2.0); EOSINOPHIL # 0.1 TH/MM3 (0-0.4); HEMOGLOBIN 10.8 GM/DL (13.0-17.0); LYMPH % 12.8 % (9.0-44.0); LYMPHOCYTE # 0.6 TH/MM3 (1.0-4.8); MEAN CORPUSCULAR HEMOGLOBIN 29.5 PG (27.0-34.0); MEAN CORPUSCULAR HGB CONC 33.9 % (32.0-36.0); MEAN PLATELET VOLUME 6.8 FL (7.0-11.0); MONO % 7.7 % (0.0-8.0); MONOCYTE # 0.4 TH/MM3 (0-0.9); NEUT % 76.8 % (16.0-70.0); PLATELET COUNT 274 TH/MM3 (150-450); RED BLOOD COUNT 3.68 MIL/MM3 (4.50-5.90); RED CELL DISTRIBUTION WIDTH 13.1 % (11.6-17.2); WHITE BLOOD COUNT 4.9 TH/MM3 (4.0-11.0)
--- NOTE | 2017-08-03 12:26 | RADRPT ---
EXAM DATE/TIME: 08/03/2017 12:13 [facility] COMPARISON: CT BRAIN W/O CONTRAST, July 26, 2017, 10:08. INDICATIONS : Syncope RADIATION DOSE: 46.16 CTDIvol (mGy) MEDICAL HISTORY : None SURGICAL HISTORY : Appendectomy. ENCOUNTER: Initial ACUITY: 1 day PAIN SCALE: 0/10 LOCATION: cranial TECHNIQUE: Multiple contiguous axial images were obtained of the head. Using automated exposure control and adj ustment of the mA and/or kV according to patient size, radiation dose was kept as low as reasonably a chievable to obtain optimal diagnostic quality images. DICOM format image data is available electro nically for review and comparison. FINDINGS: CEREBRUM: The ventricles are normal for age. No evidence of midline shift, mass lesion, hemorrhage or acute in farction. No extra-axial fluid collections are seen. POSTERIOR FOSSA: The cerebellum and brainstem are intact. The 4th ventricle is midline. The cerebellopontine angle i s unremarkable. EXTRACRANIAL: The visualized portion of the orbits is intact. SKULL: The calvaria is intact. No evidence of skull fracture. CONCLUSION: Normal examination for a patient of this age. No significant change has occurred. Dillon Rivera MD on August 03, 2017 at 12:22 Board Certified Radiologist. This report was verified electronically.
--- NOTE | 2017-08-03 13:35 | EKG ---
Date Performed: 08/03/2017 Time Performed: 10:51:18 PTAGE: 72 years EKG: SINUS BRADYCARDIA BORDERLINE ECG PREVIOUS TRACING : 07/26/2017 15.36 DOCTOR: Denys Hollins Interpretating Date/Time 08/03/2017 13:34:06
--- NOTE | 2017-08-03 14:16 | HHI.GIFU ---
Subjective Remarks Pt had a syncopal episode in the shower Laine called, now in ICU Spoke with RN Amber, who states pts BP never dropped with a MAP under 65 ECG was done which showed sinus bradycardia No reports of GI bleeding or emesis (Carrie Shrestha) Objective Laboratory Laboratory Tests Test 08/03/17 10:43 08/03/17 11:26 Blood Urea Nitrogen 15 Creatinine 1.02 Random Glucose 74 Total Protein 6.5 Albumin 3.4 Calcium Level 9.0 Alkaline Phosphatase 72 Aspartate Amino Transf (AST/SGOT) 31 Alanine Aminotransferase (ALT/SGPT) 52 Total Bilirubin 0.4 Sodium Level 135 Potassium Level 3.9 Chloride Level 100 Carbon Dioxide Level 28.1 Anion Gap 7 Estimat Glomerular Filtration Rate 72 Total Creatine Kinase 144 Troponin I LESS THAN 0.02 White Blood Count 4.9 Red Blood Count 3.68 Hemoglobin 10.8 Hematocrit 32.0 Mean Corpuscular Volume 87.0 Mean Corpuscular Hemoglobin 29.5 Mean Corpuscular Hemoglobin Concent 33.9 Red Cell Distribution Width 13.1 Platelet Count 274 Mean Platelet Volume 6.8 Neutrophils (%) (Auto) 76.8 Lymphocytes (%) (Auto) 12.8 Monocytes (%) (Auto) 7.7 Eosinophils (%) (Auto) 2.0 Basophils (%) (Auto) 0.7 Neutrophils # (Auto) 3.7 Lymphocytes # (Auto) 0.6 Monocytes # (Auto) 0.4 Eosinophils # (Auto) 0.1 Basophils # (Auto) 0.0 CBC Comment DIFF FINAL Differential Comment Imaging Last Impressions Chest X-Ray 08/03/17 1019 Signed Impressions: Service Date/Time: Thursday, August 03, 2017 10:40 - CONCLUSION: The lungs are clear. No evidence of pneumothorax. Jc Watson MD Head CT 08/03/17 0000 Signed Impressions: Service Date/Time: Thursday, August 03, 2017 12:13 - CONCLUSION: Normal examination for a patient of this age. No significant change has occurred. Dillon Rivera MD Physical Exam HEENT: Normocephalic; atraumatic CHEST: Even/unlabored CARDIAC: Sinus bradycardia ABDOMEN: Soft, nondistended, nontender; bowel sounds active EXTREMITIES: No clubbing, cyanosis, or edema. 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 c/o bolus sensation. CT chest indicated he has had gastric surgery, dilated esophagus with luminal debris. No aspiration seen Barium swallow 07/29/17 Enlarged dilated esophagus that does contain residual food. Surgical clips seen at the GE junction. Possible mass present at the GE junction. Patient needs to be upright to assist with esophageal emptying. Probable long- standing either achalasia or partial obstruction with surgical clips in the GE junction. There is the suggestion of the mass at the GE junction as well. Suggest viewing. Palliative care saw patient for consult. Currently patient has some confusion but is more cooperative today per the staff than before the last few days. Patient denies any nausea or vomiting. Continues with IV fluids at 84 cc an hour. 07/30/17 pt resting in bed. per RN does not want procedures and wants to . d/w brother Tito Catherine barium swallow findings, , He and other brother Tyler would like to see if pt can be made more stable from psych point of view so that he could make his own decision about pursuing EGD. (08/02) S/P EGD yesterday --> Class D esophagitis, biopsy. Near circumferential mass 3x3 cm in size, was found in the distal esophagus, multiple biopsies. Erythematous gastritis in the gastric antrum. Normal duodenal mucosa in the 2nd part of the duodenum., Hiatal hernia. (08/03) --> Pt had witnessed syncopal episode in the shower, Laine called, now in ICU. Spoke with RN, she states he has not had MAP <65. ECG was done which showed sinus bradycardia. No reports of GI bleeding or emesis. Syncope possibly related to dehydration vs medication side effect. Now with IVF. H/H stable. Unsure of PO intake since recently transferred. EGD biopsy still pending Plan: Mechanical soft diet EGD biopsy pending Diflucan two days ago, continue for total of 7 days Further recommendations based on findings of above Pt has been seen and examined by myself and Dr. Luque and this note is written on his behalf (Carrie Shrestha) Physician Comments Seen and examined with MICHELE, transferred to [facility] last night for syncopal episode. Biopsies-p. On diflucan. (Kay Conte MD) Carrie Shrestha Aug 03, 2017 14:16 Kay Conte MD Aug 03, 2017 14:30
[2017-08-03] MEDS ORDERED: DEXTROSE 50% IN WATER 50 ML VIAL(D50) IV PUSH PRN (14:45)
[2017-08-03] MEDS ORDERED: GLUCAGON 1 MG/ML VIAL OTHER PRN (14:45)
[2017-08-03] MEDS: ENOXAPARIN SODIUM 40 MG/0.4 ML SYRINGE SQ SCH (15:00)
[2017-08-03 16:43] LABS: TROPONIN I LESS THAN 0.02 NG/ML (0.02-0.05)
[2017-08-03] MEDS: SODIUM CHLORIDE 0.9% FLUSH 10 ML FLUSH IV FLUSH SCH (19:43)
[2017-08-03] MEDS ORDERED: IOHEXOL 350 MG/ML 10 ML VIAL (for RAD DIAG) IVCONTRAST ONE (20:45)
--- NOTE | 2017-08-03 20:50 | RADRPT ---
EXAM DATE/TIME: 08/03/2017 20:32 [facility] COMPARISON: CT THORAX W/O CONTRAST, July 27, 2017, 13:21. CT BRAIN W/O CONTRAST, August 03, 2017, 12:13. INDICATIONS : Sncope, evaluate for pulmonary emboli. IV CONTRAST: 80 cc Omnipaque 350 (iohexol) IV RADIATION DOSE: 56 CTDIvol (mGy) MEDICAL HISTORY : None SURGICAL HISTORY : Appendectomy. ENCOUNTER: Initial ACUITY: 1 day PAIN SCALE: 0/10 LOCATION: chest TECHNIQUE: Volumetric scanning of the chest was performed using a pulmonary embolism protocol MIP images were re constructed. Using automated exposure control and adjustment of the mA and/or kV according to patien t size, radiation dose was kept as low as reasonably achievable to obtain optimal diagnostic quality images. DICOM format image data is available electronically for review and comparison. Follow-up recommendations for detected pulmonary nodules are based at a minimum on nodule size and pa tient risk factors according to Fleischner Society Guidelines. FINDINGS: The examination is of good diagnostic quality. No pulmonary embolus is identified. The heart is normal in size. There is no hilar or mediastinal adenopathy present. The examination demonstrates postsurgical changes involving the esophagus. This appears dilated. Exam would suggest possible previous gastric pullup. This is unchanged compared to previous. The lungs are clear. There is no pleural effusion. The visualized osseous structures are grossly intact. CONCLUSION: 1. No pulmonary embolus identified. 2. Postsurgical changes involving the esophagus. This is stable compared to the patient's previous st em. Juancarlos Hernandez MD on August 03, 2017 at 20:44 Board Certified Radiologist. This report was verified electronically.
[2017-08-03] MEDS: FAMOTIDINE 20 MG TAB PO SCH (21:00)
[2017-08-03] MEDS: SODIUM CHLORIDE 1 GRAM TAB PO SCH (21:00)
[2017-08-03 23:15] LABS: TROPONIN I LESS THAN 0.02 NG/ML (0.02-0.05)
[2017-08-04] VITALS (12 sets, daily range): BP systolic 123–148; BP diastolic 70–99; PULSE 60–103; RESP 15–37; TEMP 98–98.8; O2SAT 94–99
[2017-08-04] MEDS: D5-1/2 NS + KCL 20 MEQ INJ 1,000 ML IV SCH (02:27)
[2017-08-04] MEDS: LEVOTHYROXINE SODIUM 75 MCG TAB PO SCH (04:07)
[2017-08-04 04:51] LABS: AUTOMATED NEUTROPHIL # 15.1 TH/MM3 (1.8-7.7); EOSINOPHIL # 0.1 TH/MM3 (0-0.4); EOSINOPHIL % 0.8 % (0.0-4.0); HEMATOCRIT 33.9 % (39.0-51.0); HEMOGLOBIN 11.7 GM/DL (13.0-17.0); LYMPH % 2.6 % (9.0-44.0); LYMPHOCYTE # 0.4 TH/MM3 (1.0-4.8); MEAN CELL VOLUME 85.5 FL (80.0-100.0); MEAN CORPUSCULAR HEMOGLOBIN 29.5 PG (27.0-34.0); MEAN CORPUSCULAR HGB CONC 34.5 % (32.0-36.0); MEAN PLATELET VOLUME 6.9 FL (7.0-11.0); MONO % 2.4 % (0.0-8.0); MONOCYTE # 0.4 TH/MM3 (0-0.9); NEUT % 94.2 % (16.0-70.0); PLATELET COUNT 305 TH/MM3 (150-450); RED BLOOD COUNT 3.96 MIL/MM3 (4.50-5.90); RED CELL DISTRIBUTION WIDTH 13.7 % (11.6-17.2)
[2017-08-04 05:11] LABS: BICARBONATE 24.7 MEQ/L (21.0-32.0); CALCIUM 9.2 MG/DL (8.5-10.1); CREATININE 0.88 MG/DL (0.60-1.30)
--- NOTE | 2017-08-04 08:15 | EKG ---
Date Performed: 08/03/2017 Time Performed: 22:19:25 PTAGE: 72 years EKG: Sinus rhythm POSSIBLE LEFT ATRIAL ENLARGEMENT POSSIBLE RIGHT VENTRICULAR CONDUCTION DELAY LEFT ANTERIOR FASCICULA R BLOCK ABNORMAL ECG PREVIOUS TRACING : 08/03/2017 16.31 Since the prior tracing, there has been no significant styles DOCTOR: Mitra Bliss Interpretating Date/Time 08/04/2017 08:12:03
--- NOTE | 2017-08-04 08:15 | EKG ---
Date Performed: 08/03/2017 Time Performed: 16:31:05 PTAGE: 72 years EKG: Sinus rhythm POSSIBLE LEFT ATRIAL ENLARGEMENT MARKED LEFT AXIS DEVIATION POSSIBLE RIGHT VENTRICULAR CONDUCTION DE LAY ANTEROSEPTAL MYOCARDIAL INFARCTION , OF INDETERMINATE AGE ABNORMAL ECG PREVIOUS TRACING : 08/03/2017 10.51 Since the prior tracing, there has been no significant styles DOCTOR: Mitra Bliss Interpretating Date/Time 08/04/2017 08:11:54
--- NOTE | 2017-08-04 10:23 | HHI.PR ---
Subjective Remarks Agitated this morning. Nursing staff had placed him on restraints. Oral mucosa quite dry. He still knows that he is in hospital. However he could not tell me how he got here yesterday from the other med psych unit. Discussed with his psychiatrist. Psychiatry is reports to me that this patient is extremely different from his baseline status.. Objective Vitals Vital Signs Date Time Temp Pulse Resp B/P (MAP) Pulse Ox O2 Delivery O2 Flow Rate FiO2 08/04/17 06:00 88 08/04/17 04:00 103 08/04/17 04:00 98.0 103 22 148/70 (96) 97 08/04/17 02:00 60 08/04/17 00:00 98.0 60 15 123/74 (90) 99 08/04/17 00:00 60 08/03/17 22:00 65 08/03/17 20:00 97.9 67 20 137/76 (96) 100 08/03/17 20:00 67 08/03/17 18:00 62 08/03/17 17:00 68 08/03/17 16:00 98.0 64 25 115/76 (89) 100 08/03/17 16:00 64 08/03/17 15:05 62 08/03/17 15:00 54 08/03/17 14:00 52 08/03/17 13:00 55 08/03/17 12:30 58 08/03/17 12:08 60 08/03/17 12:00 59 08/03/17 12:00 98.0 59 13 114/55 (74) 100 I/O 08/03/17 08/03/17 08/03/17 08/04/17 08/04/17 08/04/17 07:00 15:00 23:00 07:00 15:00 23:00 Intake Total 700 ml 1550 ml Output Total 0 ml 700 ml Balance 700 ml 850 ml Intake Oral 700 ml 550 ml IV Total 1000 ml Output Urine Total 0 ml 700 ml Result Diagram: 08/04/17 0415 08/04/175 Objective Remarks Seen in ICU. Lying in bed and quite delirious. On restraints. Not able to give any history properly. Heart rate is tachycardic, no murmur appreciated. Lungs sounds are diminished. Overall quite poor exam since patient is constantly talking during the examination. Abdomen is soft and nontender. Extremities did not reveal any evidence of calf asymmetry or edema or tenderness. A/P Assessment and Plan Impression/ Plan: Altered mental status/lethargy. Discussed with patient's psychiatrist regarding whether to take patient back to med psych unit as patient is hemodynamically stable. However psychiatrist informed me that this patient is extremely different from his baseline status and that they do believe that patient's confusion/lethargy is secondary to medical disease. He is usually ambulatory, participating in conversation. This morning he was not even recognizing his psychiatrist. He has been in this hospital for a while and her psychiatry care and the team is very familiar with his baseline status. Therefore agree with the psychiatrist's opinion. We will do full medical workup regarding his delirium. Discussed with psychiatrist regarding psychiatry meds. He will give further recommendations and hold on most meds. 2 EEG pending. Hyponatremia to be corrected. Neurology consult. Head CT personally reviewed. No evidence of acute infarct/hemorrhage/edema/ ventriculomegaly. Echocardiogram is pending. Carotid sono personally reviewed. No evidence of hemodynamically significant stenosis. EKG telemetry monitoring. Hypotension on August 03, 2017 a.m. with syncope Secondary to poor oral intake, with medications increased of Seroquel.Suspects medications reaction. Patient's Seroquel dose was increased on the night of August 02, 2017. He also received Benadryl, trazodone together with Seroquel 100 mg by mouth then. Improved and resolved rapidly with IV hydration and fluid bolus. Continue maintenance IV fluids with normal saline at 84 cc per hour. Leukocytosis is noted this a.m. Again, suspect more of dehydration/agitation causing this rather than sepsis. We'll obtain blood cultures/urine and urine culture. Chest x-ray personally reviewed. No evidence of acute infiltrates. We'll monitor for fevers. Hyponatremia Secondary to Tegretol use causing SIADH. This was initially thought. However, this has been quite a few days and patient is still requiring sodium tablets and could not wean him off it. Overnight, her hyponatremia was worsened as well. However this overnight issues secondary to receiving D5 half normal saline in past 24 hours. Patient also has poor oral intake. Change IV fluids to normal saline at 84 cc per hour. Also reconsult nephrology for further recommendations. . Dysphagia secondary to achalasia Is being followed by GI. EGD 08/01/17 showed class D esophagitis. Near circumferential mass 3 x 3 cm in size found in the distal esophagus. Multiple biopsies were taken. We'll follow up. Ana on EGD. On Diflucan. Patient needs to be upright to assist with esophageal emptying. Diflucan for 7 days. Mechanical soft diet Gastritis. Hiatal hernia. Seizure disorder Schizoaffective disorder BPH DVT prophylaxis with Lovenox. GI prophylaxis on pepcid Patient has a brother who is the healthcare decision maker. transfer pt to medical floor in front of nursing station, preferably 7 N or 6N reorient patient and help from staff- rather than restraints Discharge Planning nursing staff, patient, psychiatrist Dileep Ham MD Aug 04, 2017 10:23
[2017-08-04] MEDS ORDERED: diphenhydrAMINE HCL 50 MG/ML VIAL IV PUSH ONE (10:30)
--- NOTE | 2017-08-04 11:29 | HHI.PYPN ---
Subjective Remarks I have seen and examined this patient today. Discussed the case with nursing charge, also discussed the case with primary hospitalist. On evaluation today the patient is very confused, kind of lethargic, with pronounced agitation deficit, fluctuation of consciousness. Patient is very disoriented, he did not recognize me, he is very logical, unable to sustain a conversation. Mental Status Examination Appearance: Disheveled Consciousness: Alert, Obtunded Orientation: Person Motor Activity: Abnormal gait Speech: Slow, Incoherent Fund of Knowledge: Inadequate Attention and Concentration: Inadequate Memory: Impaired Mood: Irritable Affect: Labile Thought Content: Racing thoughts Hallucination Type: None Delusion Type: Bizarre Suicidal Ideation: No Suicidal Plan: No Suicidal Intention: No Homicidal Ideation: No Homicidal Plan: No Homicidal Intention: No Insight: Poor Judgment: Poor Results Labs Test 08/03/17 11:26 08/03/17 15:25 08/03/17 15:26 08/03/17 22:25 White Blood Count 4.9 TH/MM3 Red Blood Count 3.68 MIL/MM3 Hemoglobin 10.8 GM/DL Hematocrit 32.0 % Mean Corpuscular Volume 87.0 FL Mean Corpuscular Hemoglobin 29.5 PG Mean Corpuscular Hemoglobin Concent 33.9 % Red Cell Distribution Width 13.1 % Platelet Count 274 TH/MM3 Mean Platelet Volume 6.8 FL Neutrophils (%) (Auto) 76.8 % Lymphocytes (%) (Auto) 12.8 % Monocytes (%) (Auto) 7.7 % Eosinophils (%) (Auto) 2.0 % Basophils (%) (Auto) 0.7 % Neutrophils # (Auto) 3.7 TH/MM3 Lymphocytes # (Auto) 0.6 TH/MM3 Monocytes # (Auto) 0.4 TH/MM3 Eosinophils # (Auto) 0.1 TH/MM3 Basophils # (Auto) 0.0 TH/MM3 CBC Comment DIFF FINAL Differential Comment D-Dimer Quantitative (PE/DVT) 0.93 MG/L FEU Total Creatine Kinase 112 U/L 118 U/L Troponin I LESS THAN 0.02 NG/ML LESS THAN 0.02 NG/ML Test 08/04/17 04:15 White Blood Count 16.0 TH/MM3 Red Blood Count 3.96 MIL/MM3 Hemoglobin 11.7 GM/DL Hematocrit 33.9 % Mean Corpuscular Volume 85.5 FL Mean Corpuscular Hemoglobin 29.5 PG Mean Corpuscular Hemoglobin Concent 34.5 % Red Cell Distribution Width 13.7 % Platelet Count 305 TH/MM3 Mean Platelet Volume 6.9 FL Neutrophils (%) (Auto) 94.2 % Lymphocytes (%) (Auto) 2.6 % Monocytes (%) (Auto) 2.4 % Eosinophils (%) (Auto) 0.8 % Basophils (%) (Auto) 0.0 % Neutrophils # (Auto) 15.1 TH/MM3 Lymphocytes # (Auto) 0.4 TH/MM3 Monocytes # (Auto) 0.4 TH/MM3 Eosinophils # (Auto) 0.1 TH/MM3 Basophils # (Auto) 0.0 TH/MM3 CBC Comment DIFF FINAL Differential Comment Blood Urea Nitrogen 13 MG/DL Creatinine 0.88 MG/DL Random Glucose 98 MG/DL Calcium Level 9.2 MG/DL Sodium Level 129 MEQ/L Potassium Level 4.1 MEQ/L Chloride Level 98 MEQ/L Carbon Dioxide Level 24.7 MEQ/L Anion Gap 6 MEQ/L Estimat Glomerular Filtration Rate 85 ML/MIN Vitals/IOs Vital Signs Date Time Temp Pulse Resp B/P (MAP) Pulse Ox O2 Delivery O2 Flow Rate FiO2 08/04/17 06:00 88 08/04/17 04:00 98.0 22 148/70 (96) 97 Intake and Output 08/04/17 08/04/17 08/05/17 08:00 16:00 00:00 Intake Total 1550 ml Output Total 700 ml Balance 850 ml Assessment & Plan Problem List: (1) Delirium due to another medical condition ICD Codes: F05 - Delirium due to known physiological condition Assessment & Plan: Patient continues to be delirious was probably related with underlying medical conditions, seizures or hyponatremia. A full medical workup of delirium needs to be done. Patient has a pronounced altered mental status not part of his baseline. He does not meet criteria for psychiatric admission at this moment. Hold psychotropics. 3 agitation with Haldol 2 mg IM every 6 hours when necessary severe agitation (2) Hyponatremia ICD Codes: E87.1 - Hypo-osmolality and hyponatremia Assessment & Plan Estimated LOS: days Justification for Cont. Inpt. Patient does not meet criteria for involuntary psychiatric admission at this moment. Aidan Ohara MD Aug 04, 2017 11:29
--- NOTE | 2017-08-04 11:38 | ECHRPT ---
Indication: CONCLUSIONS normal lv size, mild lvh, ef=60% The aortic root and proximal ascending aorta are not well visualized. No tricuspid valve stenosis.there is trace tricuspid valve regurgitation. The transthoracic study is normal by two-dimensional, color flow imaging and Doppler interrogation. The transthoracic study is normal by two-dimensional, color flow imaging and Doppler interrogation. BP: 148 / 70 HR: 103 Rhythm: MEASUREMENTS (Male / Female) Normal Values Technical Quality:Poor 2D ECHO LV Diastolic Diameter PLAX 3.8 cm 4.2 - 5.9 / 3.9 - 5.3 cm LV Systolic Diameter PLAX 2.7 cm IVS Diastolic Thickness 1.0 cm 0.6 - 1.0 / 0.6 - 0.9 cm LVPW Diastolic Thickness 1.1 cm 0.6 - 1.0 / 0.6 - 0.9 cm LV Relative Wall Thickness 0.5 RV Internal Dim ED PLAX 1.9 cm M-MODE Aortic Root Diameter MM 2.6 cm LA Systolic Diameter MM 3.7 cm LA Ao Ratio MM 1.4 AV Cusp Separation MM 1.5 cm DOPPLER MV Peak Velocity 80.1 cm/s MV Peak Gradient 2.6 mmHg MV Mean Velocity 54.3 cm/s MV Mean Gradient 1.0 mmHg Mitral E Point Velocity 84.2 cm/s Mitral A Point Velocity 81.4 cm/s Mitral E to A Ratio 1.0 TR Peak Velocity 213.0 cm/s TR Peak Gradient 18.1 mmHg Right Atrial Pressure 10.0 mmHg Pulmonary Artery Systolic Pressu 28.1 mmHg Right Ventricular Systolic Press 28.1 mmHg FINDINGS LEFT VENTRICLE Normal left ventricular size and wall thickness. The left ventricular systolic function is normal wi th an estimated ejection fraction in the range of 60-65%. Left ventricular diastolic function parameters a re normal. RIGHT VENTRICLE Normal right ventricular size and systolic function. LEFT ATRIUM The left atrial size is normal. RIGHT ATRIUM The right atrial size is normal. ATRIAL SEPTUM Normal atrial septal thickness without atrial level shunting by limited color doppler interrogation. AORTA The aortic root and proximal ascending aorta are not well visualized. MITRAL VALVE Structurally normal mitral valve. No mitral valve stenosis or regurgitation. AORTIC VALVE Trileaflet aortic valve. No aortic valve stenosis or regurgitation. TRICUSPID VALVE Structurally normal tricuspid valve. No tricuspid valve stenosis.there is trace tricuspid valve regu rgitation. PULMONARY VALVE No pulmonary valve regurgitation or stenosis. VESSELS The inferior vena cava is normal in size. PERICARDIUM No pericardial effusion. Riley Rucker MD, FACC, FSCAI (Electronically Signed) Final Date:04 August 2017 11:37
[2017-08-04] MEDS: SODIUM CHLORIDE 1 GRAM TAB PO SCH ×2 (11:53→20:47)
[2017-08-04] MEDS: SODIUM CHLOR 0.9% 1000 ML INJ 1,000 ML IV SCH ×2 (11:53→20:47)
[2017-08-04] MEDS: SODIUM CHLORIDE 0.9% FLUSH 10 ML FLUSH IV FLUSH SCH ×2 (11:54→20:47)
[2017-08-04] MEDS: HALOPERIDOL LACTATE 5 MG/ML AMP IM PRN (14:30)
[2017-08-04] MEDS: ENOXAPARIN SODIUM 40 MG/0.4 ML SYRINGE SQ SCH (14:31)
--- NOTE | 2017-08-04 14:36 | HHI.GIFU ---
Subjective Remarks Pt remains confused In soft wrist restraints Spoke with RN, Jazmin, she states poor PO intake, ate some jell-o for lunch (Carrie Shrestha) Objective Vitals I&O Vital Signs Date Time Temp Pulse Resp B/P (MAP) Pulse Ox O2 Delivery O2 Flow Rate FiO2 08/04/17 14:00 97 08/04/17 12:00 90 08/04/17 12:00 98.1 90 26 129/99 (109) 97 08/04/17 10:00 92 08/04/17 08:00 98.4 102 37 138/81 (100) 97 08/04/17 08:00 102 08/04/17 06:00 88 08/04/17 04:00 103 08/04/17 04:00 98.0 103 22 148/70 (96) 97 08/04/17 02:00 60 08/04/17 00:00 98.0 60 15 123/74 (90) 99 08/04/17 00:00 60 08/03/17 22:00 65 08/03/17 20:00 97.9 67 20 137/76 (96) 100 08/03/17 20:00 67 08/03/17 18:00 62 08/03/17 17:00 68 08/03/17 16:00 98.0 64 25 115/76 (89) 100 08/03/17 16:00 64 08/03/17 15:05 62 08/03/17 15:00 54 I/O 08/03/17 08/03/17 08/03/17 08/04/17 08/04/17 08/04/17 07:00 15:00 23:00 07:00 15:00 23:00 Intake Total 700 ml 1550 ml Output Total 0 ml 700 ml Balance 700 ml 850 ml Intake Oral 700 ml 550 ml IV Total 1000 ml Output Urine Total 0 ml 700 ml Laboratory Laboratory Tests Test 08/03/17 15:25 08/03/17 15:26 08/03/17 22:25 08/04/17 04:15 D-Dimer Quantitative (PE/DVT) 0.93 Total Creatine Kinase 112 118 Troponin I LESS THAN 0.02 LESS THAN 0.02 White Blood Count 16.0 Red Blood Count 3.96 Hemoglobin 11.7 Hematocrit 33.9 Mean Corpuscular Volume 85.5 Mean Corpuscular Hemoglobin 29.5 Mean Corpuscular Hemoglobin Concent 34.5 Red Cell Distribution Width 13.7 Platelet Count 305 Mean Platelet Volume 6.9 Neutrophils (%) (Auto) 94.2 Lymphocytes (%) (Auto) 2.6 Monocytes (%) (Auto) 2.4 Eosinophils (%) (Auto) 0.8 Basophils (%) (Auto) 0.0 Neutrophils # (Auto) 15.1 Lymphocytes # (Auto) 0.4 Monocytes # (Auto) 0.4 Eosinophils # (Auto) 0.1 Basophils # (Auto) 0.0 CBC Comment DIFF FINAL Differential Comment Blood Urea Nitrogen 13 Creatinine 0.88 Random Glucose 98 Calcium Level 9.2 Sodium Level 129 Potassium Level 4.1 Chloride Level 98 Carbon Dioxide Level 24.7 Anion Gap 6 Estimat Glomerular Filtration Rate 85 Date/Time Source Procedure Growth Status 08/04/17 11:10 Blood Peripheral Aerobic Blood Culture Pending Received 08/04/17 11:10 Blood Peripheral Anaerobic Blood Culture Pending Received Imaging Last Impressions Chest X-Ray 08/03/17 1019 Signed Impressions: Service Date/Time: Thursday, August 03, 2017 10:40 - CONCLUSION: The lungs are clear. No evidence of pneumothorax. Jc Watson MD Head CT 08/03/17 0000 Signed Impressions: Service Date/Time: Thursday, August 03, 2017 12:13 - CONCLUSION: Normal examination for a patient of this age. No significant change has occurred. Dillon Rivera MD CT Angiography 08/03/17 0000 Signed Impressions: Service Date/Time: Thursday, August 03, 2017 20:32 - CONCLUSION: 1. No pulmonary embolus identified. 2. Postsurgical changes involving the esophagus. This is stable compared to the patient's previous stem. Juancarlos Hernandez MD Physical Exam HEENT: Normocephalic; atraumatic CHEST: Even/unlabored CARDIAC: RRR ABDOMEN: Soft, nondistended, nontender; bowel sounds active EXTREMITIES: No clubbing, cyanosis, or edema. SKIN: Pale TOPOGRAPHICAL DRAFTER: Awake, answering questions, confused (Carrie Shrestha) Assessment and Plan Plan - dysphagia - appears chronic, pt admits hx achalasia. c/o bolus sensation. CT chest indicated he has had gastric surgery, dilated esophagus with luminal debris. No aspiration seen Barium swallow 07/29/17 Enlarged dilated esophagus that does contain residual food. Surgical clips seen at the GE junction. Possible mass present at the GE junction. Patient needs to be upright to assist with esophageal emptying. Probable long- standing either achalasia or partial obstruction with surgical clips in the GE junction. There is the suggestion of the mass at the GE junction as well. Suggest viewing. Palliative care saw patient for consult. Currently patient has some confusion but is more cooperative today per the staff than before the last few days. Patient denies any nausea or vomiting. Continues with IV fluids at 84 cc an hour. 07/30/17 pt resting in bed. per RN does not want procedures and wants to . d/w brother Tito Catherine barium swallow findings, , He and other brother Tyler would like to see if pt can be made more stable from psych point of view so that he could make his own decision about pursuing EGD. (08/02) S/P EGD yesterday --> Class D esophagitis, biopsy. Near circumferential mass 3x3 cm in size, was found in the distal esophagus, multiple biopsies. Erythematous gastritis in the gastric antrum. Normal duodenal mucosa in the 2nd part of the duodenum., Hiatal hernia. (08/03) --> Pt had witnessed syncopal episode in the shower, Laine called, now in ICU. Spoke with RN, she states he has not had MAP <65. ECG was done which showed sinus bradycardia. No reports of GI bleeding or emesis. Syncope possibly related to dehydration vs medication side effect. Now with IVF. H/H stable. Unsure of PO intake since recently transferred. EGD biopsy still pending (08/04) --> Pt with poor PO intake, spoke with RN Jazmin who states he had Jell-o for lunch, no breakfast. Unsure about meals yesterday. EGD biopsy still pending. H/H improved today, no transfusion. Plan: Mechanical soft diet EGD biopsy pending Diflucan started three days ago, continue for total of 7 days Further recommendations based on findings of above Pt has been seen and examined by myself and Dr. Luque and this note is written on his behalf (Carrie Shrestha) Physician Comments Seen and examined with [employer] CONSULTANT, biopsies pending. (Kay Conte MD) Carrie Shrestha Aug 04, 2017 14:36 Kay Conte MD Aug 04, 2017 16:18
--- NOTE | 2017-08-04 16:28 | MB ---
cc: AJ KHOURY DATE OF CONSULTATION 08/04/2017 HISTORY OF THE PRESENT ILLNESS The patient is a 72-year-old man with a history a low blood pressure and possible thyroid problems and schizoaffective disorder, recent hyponatremia, some dysphasia. He was in the psych unit and was on the toilet and passed out, noted to be wet. Responsive with eyes rolling. He had a wet towel bath right beforehand. He was not communicating, pale. They called the doctor. O2 sats were 95% at that time. Blood pressure was 105/60, heart rate 80, is 110. They thought probably a vasovagal episode. He was found on 08/01/2017 to have class D esophagitis near circumferential mass 3 x 3 cm in size on the distal esophagus, multiple biopsies and results are pending. 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 Possible history of seizure disorder, BPH, achalasia. Evidently blood pressures were as low as 90s / 50s. He is now in the intensive care unit. REVIEW OF SYSTEMS He denies any history of hypertension, diabetes, hypercholesterolemia, [place], CABG, stent, angioplasty, A fib, Coumadin, renal, hepatic or pulmonary disease, lupus, ulcer, cancer, seizure or stroke. SOCIAL HISTORY He is not a smoker or drinker. Lives in an [facility]. FAMILY HISTORY Negative for cancer seizure, stroke. CURRENT MEDICATIONS He is on: 1. Haldol 2 mg p.r.n. IM. 2. Synthroid. 3. Pepcid. 4. Lovenox subcu. 5. He was however earlier on Seroquel 100 at bedtime. 6. Ativan the last several days. 7. Trazodone 50 at bedtime. 8. Abilify earlier this month. 9. He was on Tegretol on 07/18/2017 200 mg at bedtime and no longer taking that. PHYSICAL EXAMINATION VITAL SIGNS: Afebrile. 97, 122/99. He generally runs around 112-150, although yesterday his blood pressure down to 101/55 documented, lower by the notes as noted above. NECK: There were no carotid bruits. HEART: Regular rhythm. I did not detect a murmur. NEUROLOGIC: Pupils are equal. Visual sanchez are full. Face is symmetric. Tongue was midline. He was tied down but he moves both upper extremities well. Both lower extremities moved normally. His toes are downgoing bilaterally. DTRs at the knees however, 3+ and symmetric. No ankle clonus. He is awake and alert. He knows he lives in an [facility] in [facility] and that is in [place]. He does not know the month or the year. Speech is fluent. He is not aphasic. A little agitated. LABORATORY DATA His white count 16, although yesterday it was 4.9, hematocrit is normal. Platelet count is normal. Sed rate was normal back in 2003. Hepatitis screen is negative. UA was negative yesterday. Urine Tegretol level 3.8. Sodium 129, it had been as low as 120 on 07/26, even 116 on 07/18/2017. He has run a long history of low sodium levels down to 125 on 12/22/2016. It had been as high as 135 yesterday which is actually the highest it has been. BMP is otherwise normal. Calcium normal. Liver function tests normal. CPK and troponin negative. Albumin normal. TSH has been normal. B12 normal. IMAGING He had a CTA of his chest yesterday which was negative for pulmonary embolism. He had a head CT in 2003 that was read as suspected bilateral lacunar infarcts similar on both sides. On 07/26/[address] which was read as negative on review of those films. It is essentially normal. I do not see any definite infarcts. I think this probably coming up like this . IMPRESSION Syncopal episode probably due to low blood pressure, he has a history of that. We could check some orthostatics on him and we will check an MRI of the brain and EEG and a carotid ultrasound, but otherwise I thought he looked fairly well neurologically and nonfocal. He does have some hyperreflexia but he has bilateral knee jerks and we will check an MRI of cervical spine especially since it looks like he has fallen recently with some abrasions on his knees and make sure there is no spinal stenosis. His sodium continues to be low off of the Tegretol and that should be watched. If it continues to be too low we could consider having renal see him if they have not already. I think that this syncopal episode is likely non neurological and I would recommend having cardiology see him and consider an echo and Holter but I will defer that to the med team. Looking in the chart as far as a seizure history goes, he denied it and I do not see other notes saying that he has a history of seizures. MD MOSHE Oates/ILIR /2:50 PM /3:47 PM
--- NOTE | 2017-08-04 16:40 | RADRPT ---
EXAM DATE/TIME: 08/04/2017 15:24 [facility] COMPARISON: No previous studies available for comparison. INDICATIONS : Cerebrovascular accident. MEDICAL HISTORY : Cerebrovascular disease. Bipolar. Asberger. SURGICAL HISTORY : Appendectomy. Stomach surgery. Left arm surgery. ENCOUNTER: Initial ACUITY: 1 day PAIN SCORE: 0/10 LOCATION: Bilateral neck PEAK SYSTOLIC VELOCITIES (cm/sec): ICA/CCA RATIO: Right: 0.7 Left: 1.0 ICA: Right: 78 Left: 96 CCA: Right: 111 Left: 92 ECA: Right: 90 Left: 62 VERTEBRAL: Right: 58 antegrade Left: 70 antegrade Elevated flow velocities and ICA/CCA ratios have been found to correlate with increased degrees of vessel stenosis, calculated as percentage of diameter relative to a normal segment of distal ICA/CCA FINDINGS: RIGHT CAROTID: No significant stenosis is visualized. The waveforms are within normal limits. LEFT CAROTID: No significant stenosis is visualized. The waveforms are within normal limits. VERTEBRAL ARTERIES: Antegrade flow is seen in both vertebral arteries. MISCELLANEOUS: None. CONCLUSION: No evidence of flow-limiting carotid stenosis. Tyler Arriola MD on August 04, 2017 at 16:38 Board Certified Radiologist. This report was verified electronically.
[2017-08-04 16:47] LABS: BILIRUBIN, URINE NEG (NEG); BLOOD, URINE NEG (NEG); GLUCOSE,URINE NEG (NEG); KETONE, URINE NEG (NEG); MUCUS URINE FEW /lpf (OCC); NITRITE,URINE NEG (NEG); PH, URINE 7.5 (5.0-8.5); URINE COLOR LIGHT-YELLOW (YELLW/STRAW); URINE LEUKOCYTE ESTERASE NEG (NEG)
[2017-08-04] MEDS: FAMOTIDINE 20 MG TAB PO SCH (20:47)
[2017-08-05] VITALS: BP 136/71; PULSE 69; RESP 16; TEMP 97.9; O2SAT 98
[2017-08-05 04:00] VITALS: BP 140/62; PULSE 67; RESP 16; TEMP 98.1; O2SAT 94
[2017-08-05] MEDS: LEVOTHYROXINE SODIUM 75 MCG TAB PO SCH (05:56)
--- NOTE | 2017-08-05 07:13 | HHI.PR ---
Subjective Remarks no co stillin bed Objective Vital Signs Date Time Temp Pulse Resp B/P (MAP) Pulse Ox O2 Delivery O2 Flow Rate FiO2 08/05/17 04:00 98.1 67 16 140/62 (88) 94 08/05/17 00:00 97.9 69 16 136/71 (92) 98 08/04/17 20:00 98.1 88 17 142/90 (107) 94 08/04/17 17:30 98.8 81 17 139/79 (99) 97 08/04/17 16:00 91 08/04/17 16:00 98.3 94 24 125/98 (107) 98 08/04/17 15:00 94 08/04/17 14:00 97 08/04/17 12:00 90 08/04/17 12:00 98.1 90 26 129/99 (109) 97 08/04/17 10:00 92 08/04/17 08:00 98.4 102 37 138/81 (100) 97 08/04/17 08:00 102 I/O 08/04/17 08/04/17 08/04/17 08/05/17 08/05/17 08/05/17 07:00 15:00 23:00 07:00 15:00 23:00 Intake Total 1550 ml 500 ml 290 ml 100 ml Output Total 700 ml 575 ml 850 ml Balance 850 ml 500 ml -285 ml -750 ml Intake Oral 550 ml 290 ml 100 ml IV Total 1000 ml 500 ml Output Urine Total 700 ml 575 ml 850 ml # Bowel Movements 1 10 Result Diagram: 08/04/17 0415 08/04/17 0415 Objective Remarks awake alert moving all Assessment and Plan Assessment and Plan imp us carotid neg mri of brain and c spine and eeg and standing bp pend if all neg could dc neurowise consider cards for syncope Edmond Donohue MD Aug 05, 2017 07:13
[2017-08-05] MEDS: HALOPERIDOL LACTATE 5 MG/ML AMP IM PRN ×2 (07:53→23:58)
[2017-08-05 08:00] VITALS: BP 144/75; PULSE 81; RESP 18; TEMP 96.9; O2SAT 97
[2017-08-05] MEDS: SODIUM CHLORIDE 1 GRAM TAB PO SCH ×2 (09:00→21:22)
[2017-08-05] MEDS: SODIUM CHLORIDE 0.9% FLUSH 10 ML FLUSH IV FLUSH SCH ×2 (09:00→21:00)
[2017-08-05] MEDS: SODIUM CHLOR 0.9% 1000 ML INJ 1,000 ML IV SCH (09:05)
--- NOTE | 2017-08-05 09:23 | RADRPT ---
EXAM DATE/TIME: 08/05/2017 08:14 [facility] COMPARISON: CT BRAIN W/O CONTRAST, August 03, 2017, 12:13. MRI ABDOMEN W & W/O CONTRAST, December 29, 2016, 10:39. INDICATIONS : Altered mental status. CONTRAST: 11 cc Omniscan (gadodiamide) IV MEDICAL HISTORY : None. SURGICAL HISTORY : Appendectomy. ENCOUNTER: Subsequent ACUITY: 2 day PAIN SCORE: 0/10 LOCATION: cranial TECHNIQUE: Multiplanar, multisequence MRI of the brain was performed both prior to and following the administrat ion of paramagnetic contrast. FINDINGS: CEREBRUM: The ventricles are normal for age. No evidence of midline shift, mass lesion, hemorrhage or acute in farction. No extraaxial fluid collections are seen. The pituitary gland and suprasellar cistern are normal in configuration. WHITE MATTER: No significant signal abnormalities are seen in the white matter. POSTERIOR FOSSA: The cerebellum and brainstem are intact. The 4th ventricle is midline. The cerebellopontine angle is unremarkable. The cerebellar tonsils are normal in position. DIFFUSION IMAGING: No focal areas of restricted diffusion are seen. No evidence of acute infarction. EXTRACRANIAL: The visualized portions of the orbits and paranasal sinuses are unremarkable. POST-CONTRAST: No abnormal areas of parenchymal or dural enhancement. No evidence of blood-brain barrier breakdown. CONCLUSION: 1. No acute intracranial abnormality identified. Juancarlos Hernandez MD on August 05, 2017 at 9:15 Board Certified Radiologist. This report was verified electronically.
[2017-08-05] MEDS ORDERED: GADODIAMIDE PF 287 MG/ML 5 ML VIAL (for RAD MRI) IVCONTRAST ONE (10:53)
--- NOTE | 2017-08-05 11:18 | RADRPT ---
EXAM DATE/TIME: 08/05/2017 08:14 [facility] COMPARISON: No previous studies available for comparison. INDICATIONS : Myelopathy. MEDICAL HISTORY : None. SURGICAL HISTORY : Appendectomy. ENCOUNTER: Subsequent ACUITY: 2 day PAIN SCORE: 0/10 LOCATION: cranial TECHNIQUE: Multiplanar, multisequence MRI examination of the cervical spine was performed. FINDINGS: VERTEBRAE: Normal vertebral body height. There are signal changes of the vertebral endplates C4-C7 and superior endplate of T2 and T3 with associated osteophytes, characteristic of degenerative changes.. ALIGNMENT: No evidence of subluxation. CORD: Normal configuration and signal. POST FOSSA: The cerebellar tonsils are normal in position. C2-C3: The thecal sac has a normal configuration. There is no evidence of disc herniation or spinal canal s tenosis. The neural foramina are patent bilaterally. C3-C4: The thecal sac has a normal configuration. There is no evidence of disc herniation or spinal canal s tenosis. The neural foramina are patent bilaterally. C4-C5: Broad based disc/osteophyte complex flattens the ventral margin of the thecal sac. The neural forami na remain patent. C5-C6: Broad-based bulging of the disc, slightly greater left parasagittal than right causes flattening of t he ventral margin of the thecal sac. Some CSF is still seen about the cervical cord. There is moder ate left sided bony neural foraminal stenosis and mild right-sided stenosis. C6-C7: Moderate-sized left parasagittal disc/osteophyte complex causes indentation on the thecal sac. Moder ate severity bilateral neural foraminal stenosis. C7-T1: The thecal sac has a normal configuration. There is no evidence of disc herniation or spinal canal s tenosis. The neural foramina are patent bilaterally. CONCLUSION: Multilevel degenerative changes with disc/osteophyte complexes causing focal indentation of the theca l sac on the left side at C5-6 and C6-7. No evidence of cord compression. Multilevel bony neural fo raminal stenosis as described above. Jc Watson MD on August 05, 2017 at 10:48 Board Certified Radiologist. This report was verified electronically.
[2017-08-05 11:26] LABS: AUTOMATED NEUTROPHIL # 8.2 TH/MM3 (1.8-7.7); BASOPHIL % 0.2 % (0.0-2.0); EOSINOPHIL % 0.2 % (0.0-4.0); HEMATOCRIT 32.2 % (39.0-51.0); HEMOGLOBIN 11.4 GM/DL (13.0-17.0); LYMPH % 7.4 % (9.0-44.0); LYMPHOCYTE # 0.7 TH/MM3 (1.0-4.8); MEAN CELL VOLUME 84.1 FL (80.0-100.0); MEAN CORPUSCULAR HEMOGLOBIN 29.8 PG (27.0-34.0); MEAN CORPUSCULAR HGB CONC 35.5 % (32.0-36.0); MONO % 5.3 % (0.0-8.0); MONOCYTE # 0.5 TH/MM3 (0-0.9); NEUT % 86.9 % (16.0-70.0); PLATELET COUNT 276 TH/MM3 (150-450); RED BLOOD COUNT 3.83 MIL/MM3 (4.50-5.90); RED CELL DISTRIBUTION WIDTH 13.1 % (11.6-17.2); WHITE BLOOD COUNT 9.5 TH/MM3 (4.0-11.0)
[2017-08-05 11:34] LABS: BICARBONATE 24.5 MEQ/L (21.0-32.0); CALCIUM 8.7 MG/DL (8.5-10.1); CREATININE 0.82 MG/DL (0.60-1.30)
[2017-08-05 12:00] VITALS: BP 174/82; PULSE 90; RESP 18; TEMP 96.7; O2SAT 97
--- NOTE | 2017-08-05 13:32 | PD.CONS ---
HPI Service Nephrology Consult Requested By Dr. Ham Reason for Consult Hyponatremia Primary Care Physician Non-Staff History of Present Illness The patient is a 72-year-old man with a history a seizure disorder, schizoaffective disorder, chronic hyponatremia, BPH, achalasia and some dysphasia. He was in the psych unit and was on the toilet and passed out and transferred to medical unit. Nephrology was consulted for further work up on hyponatremia his sodium level is 126 today. His hyponatremia appears somewhat chronic as he has had a sodium level of 126 on 12/27. 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 Seizure disorder Schizoaffective disorder BPH Achalasia Dysphagia secondary to achalasia Past Surgical History EGD on August 01, 2017 Active Ordered Medications Current Medications Medications (Trade) Dose Ordered Sig/Kerry Route Start Time Stop Time Status Last Admin (NS Flush) 2 ml UNSCH PRN IV FLUSH 08/03/17 10:30 (NS Flush) 2 ml BID IV FLUSH 08/03/17 21:00 08/04/17 11:54 (Narcan Inj) 0.4 mg UNSCH PRN IV PUSH 08/03/17 10:45 (Tylenol) 650 mg Q4H PRN PO 08/03/17 11:15 (Pepcid) 20 mg HS PO 08/03/17 21:00 08/04/17 20:47 (Synthroid) 75 mcg DAILY@0600 PO 08/04/17 06:00 08/05/17 05:56 (Sodium Chloride) 1 gm BID PO 08/03/17 21:00 08/04/17 20:47 (D50w (Vial) Inj) 50 ml UNSCH PRN IV PUSH 08/03/17 14:45 (Glucagon Inj) 1 mg UNSCH PRN OTHER 08/03/17 14:45 (Lovenox Inj) 40 mg Q24H SQ 08/03/17 15:00 08/04/17 14:31 Sodium Chloride 1,000 ml @ 84 mls/hr [id number] IV 08/04/17 09:15 08/04/17 11:53 (Haldol Inj) 2 mg Q8H PRN IM 08/04/17 11:30 08/05/17 07:53 Social History Lives in shelter remote history of smoking and ETOH use (Damaris Muniz) Physical Exam Vital Signs Vital Signs Date Time Temp Pulse Resp B/P (MAP) Pulse Ox O2 Delivery O2 Flow Rate FiO2 08/05/17 12:00 96.7 90 18 174/82 (112) 97 08/05/17 08:00 96.9 81 18 144/75 (98) 97 08/05/17 04:00 98.1 67 16 140/62 (88) 94 08/05/17 00:00 97.9 69 16 136/71 (92) 98 08/04/17 20:00 98.1 88 17 142/90 (107) 94 08/04/17 17:30 98.8 81 17 139/79 (99) 97 08/04/17 16:00 91 08/04/17 16:00 98.3 94 24 125/98 (107) 98 08/04/17 15:00 94 08/04/17 14:00 97 Physical Exam GENERAL: Alert very frail cachectic male. Not oriented SKIN: Warm and dry. HEAD: Normocephalic. EYES: No scleral icterus. No injection or drainage. NECK: Supple, trachea midline. No JVD or lymphadenopathy. CARDIOVASCULAR: Regular rate and rhythm without murmurs, gallops, or rubs. RESPIRATORY: Breath sounds equal bilaterally. No accessory muscle use. GASTROINTESTINAL: Abdomen soft, non-tender, nondistended. MUSCULOSKELETAL: No cyanosis, or edema. BACK: Nontender without obvious deformity. No CVA tenderness. Laboratory Laboratory Tests Test 08/04/17 15:50 08/04/17 15:59 08/05/17 11:00 Urine Color LIGHT-YELLOW Urine Turbidity CLEAR Urine pH 7.5 Urine Specific [place] 1.016 Urine Protein NEG Urine Glucose (UA) NEG Urine Ketones NEG Urine Occult Blood NEG Urine Nitrite NEG Urine Bilirubin NEG Urine Urobilinogen LESS THAN 2.0 Urine Leukocyte Esterase NEG Urine RBC 2 Urine WBC 1 Urine Mucus FEW Microscopic Urinalysis Comment CULT NOT INDICATED Erythrocyte Sedimentation Rate 7 White Blood Count 9.5 Red Blood Count 3.83 Hemoglobin 11.4 Hematocrit 32.2 Mean Corpuscular Volume 84.1 Mean Corpuscular Hemoglobin 29.8 Mean Corpuscular Hemoglobin Concent 35.5 Red Cell Distribution Width 13.1 Platelet Count 276 Mean Platelet Volume 7.0 Neutrophils (%) (Auto) 86.9 Lymphocytes (%) (Auto) 7.4 Monocytes (%) (Auto) 5.3 Eosinophils (%) (Auto) 0.2 Basophils (%) (Auto) 0.2 Neutrophils # (Auto) 8.2 Lymphocytes # (Auto) 0.7 Monocytes # (Auto) 0.5 Eosinophils # (Auto) 0.0 Basophils # (Auto) 0.0 CBC Comment DIFF FINAL Differential Comment Blood Urea Nitrogen 14 Creatinine 0.82 Random Glucose 87 Calcium Level 8.7 Sodium Level 126 Potassium Level 4.2 Chloride Level 93 Carbon Dioxide Level 24.5 Anion Gap 9 Estimat Glomerular Filtration Rate 93 Date/Time Source Procedure Growth Status 08/04/17 11:10 Blood Peripheral Aerobic Blood Culture - Preliminary NO GROWTH IN 1 DAY Resulted 08/04/17 11:10 Blood Peripheral Anaerobic Blood Culture - Preliminary NO GROWTH IN 1 DAY Resulted (Damaris Muniz) Result Diagram: 08/05/17 1100 08/05/17 1100 Imaging Last Impressions Cervical Spine MRI 08/05/171457 Signed Impressions: Service Date/Time: Saturday, August 05, 2017 08:14 - CONCLUSION: Multilevel degenerative changes with disc/osteophyte complexes causing focal indentation of the thecal sac on the left side at C5-6 and C6-7. No evidence of cord compression. Multilevel bony neural foraminal stenosis as described above. Jc Watson MD Brain MRI [id number]/05/[id number] Signed Impressions: Service Date/Time: Saturday, August 05, 2017 08:14 - CONCLUSION: 1. No acute intracranial abnormality identified. Juancarlos Hernandez MD Carotid Artery Ultrasound 08/04/171457 Signed Impressions: Service Date/Time: July 15:24 - CONCLUSION: No evidence of flow-limiting carotid stenosis. Tyler Arriola MD Chest X-Ray 08/03/17 1019 Signed Impressions: Service Date/Time: Thursday, August 03, 2017 10:40 - CONCLUSION: The lungs are clear. No evidence of pneumothorax. Jc Watson MD Head CT 08/03/17 0000 Signed Impressions: Service Date/Time: Thursday, August 03, 2017 12:13 - CONCLUSION: Normal examination for a patient of this age. No significant change has occurred. Dillon Rivera MD CT Angiography 08/03/17 0000 Signed Impressions: Service Date/Time: Thursday, August 03, 2017 20:32 - CONCLUSION: 1. No pulmonary embolus identified. 2. Postsurgical changes involving the esophagus. This is stable compared to the patient's previous stem. Juancarlos Hernandez MD (Damaris Muniz) Assessment and Plan Problem List: (1) Hyponatremia ICD Codes: E87.1 - Hypo-osmolality and hyponatremia Plan: Hyponatremia his sodium level is 126 today. His hyponatremia appears somewhat chronic as he has had a sodium level of 126 on 12/27. Hyponatremia could be related to SIADH Urine Osmolarity is 432, Urine random sodium is 84 on 07/20 will repeat Cortisol and uric acid level in AM Continue IVF's (2) Schizoaffective disorder ICD Codes: F25.9 - Schizoaffective disorder, unspecified Status: Acute (3) BPH (benign prostatic hyperplasia) ICD Codes: N40.0 - Benign prostatic hyperplasia without lower urinary tract symptoms (Damaris Muniz) Problem List: (1) Hyponatremia ICD Codes: E87.1 - Hypo-osmolality and hyponatremia Plan: Hyponatremia his sodium level is 126 today. His hyponatremia appears somewhat chronic as he has had a sodium level of 126 on 12/27. Hyponatremia could be related to SIADH Urine Osmolarity is 432, Urine random sodium is 84 on 07/20 will repeat Cortisol and uric acid level in AM Continue IVF's Patient seen and examined, agree with above. Please see other Consult done on same day. (2) Schizoaffective disorder ICD Codes: F25.9 - Schizoaffective disorder, unspecified Status: Acute (3) BPH (benign prostatic hyperplasia) ICD Codes: N40.0 - Benign prostatic hyperplasia without lower urinary tract symptoms (Ellen Palacio MD) Damaris Muniz Aug 05, 2017 13:32 Ellen Palacio MD Aug 05, 2017 23:16
[2017-08-05] MEDS: ENOXAPARIN SODIUM 40 MG/0.4 ML SYRINGE SQ SCH (15:14)
[2017-08-05 15:34] LABS: ANA SCREEN NEG (NEG)
--- NOTE | 2017-08-05 15:42 | MB ---
cc: KIRSTEN LUCERO MD DATE OF CONSULTATION: 08/05/2017 REASON FOR CONSULTATION: Hyponatremia for evaluation. HISTORY OF PRESENT ILLNESS: This is a 72-year-old male with past medical history of seizure disorder, schizoaffective disorder, dysphagia, achalasia, benign prostatic hypertrophy who was admitted to the psychiatric unit and was transferred to the medical side. I was called to see the patient because of hyponatremia. The patient had a sodium of 135 on presentation and it has gone down to 129 and is now 126. The patient has been followed by neurology and he has a history of seizure disorder and has been on Tegretol. Also he is on Trazodone and Haldol. The patient is not a very good historian. He is oriented x2. He lives in an assisted living facility in [facility]. Occasionally he becomes more agitated. Most of the history was taken from the patient's chart according to which the patient was found unresponsive, possibly it was vasovagal and he was transferred to the medical side. PAST MEDICAL HISTORY: 1. Seizure disorder. 2. Schizoaffective disorder. 3. Achalasia. 4. Benign prostatic hypertrophy. 5. Hyponatremia with possible SIADH. PAST SURGICAL HISTORY: Multiple endoscopies. REVIEW OF SYSTEMS: Limited since the patient is still not fully oriented. He denies any headache or dizziness. No shortness of breath. No chest pain. No palpitations. No nausea or vomiting. Denies any abdominal pain. He is still not eating very well. SOCIAL HISTORY: The patient lives in an assisted living facility. There is no known history of smoking or alcoholism. FAMILY HISTORY: Family history is not available. ALLERGIES: 1. OLANZAPINE. 2. METHYLPHENIDATE 3. DIVALPROEX. MEDICATIONS: Currently he is on the following medications: 1. Normal saline at 84 an hour. 2. Levothyroxine 75 micrograms daily. 3. Pepcid 20 milligrams daily. 4. Lovenox 40 milligrams subcutaneous q. 24 hours. 5. Haldol as needed. PHYSICAL EXAMINATION: GENERAL: On examination, the patient is awake and alert and he is oriented x2. VITAL SIGNS: His last blood pressure is 144/75, temperature is 96.9, oxygen saturation is 94% to 97% on room air. Pulse is around 67 to 81. HEAD, EYES, EARS, NOSE, THROAT: The pupils are mid-constricted and nonicteric sclerae. Conjunctivae are pale. NECK: The neck is supple. JVD is not elevated. LUNGS: The patient has bilateral good air entry with occasional wheezing. HEART: S1 and S2 regular rhythm. ABDOMEN: Abdomen soft and lax. There is no tenderness. Bowel sounds positive. EXTREMITIES: There is no pedal edema. INVESTIGATIONS: White blood cell count is 9.5, hemoglobin 11.4, platelet count is 276,000. Neutrophils 86.9%. Sodium 126, potassium 4.2, chloride 93, bicarbonate 24.5, BUN 14, creatinine 0.8, glucose 93. D dimer was 0.9. Urinalysis showing no protein, specific gravity of 1.016. MARCELA is pending. Blood cultures are pending. IMAGING STUDIES: The patient had an MRI of the brain done which shows no acute abnormality. Cervical spine MRI was done which shows multilevel changes with disc-osteophyte complexes causing focal indentation on the left side of C5-6 and C6-7. CT angiogram was done which shows no evidence of pulmonary embolism. Postsurgical changes involving the esophagus. ASSESSMENT AND PLAN: 1. Hyponatremia. 2. Seizure disorder. 3. Schizoaffective disorder. 4. History of hypotension, possibly vasovagal versus orthostatic. The patient is clinically euvolemic. I will check the urine sodium and osmolality. Agree with continuing the normal saline at present. If the serum osmolality is high, then he will benefit by giving Samsca. Encourage oral intake. Thank you for the consultation. MD KEELY Shaikh/JOHNNY /12:06 PM /3:09 PM
[2017-08-05 16:00] VITALS: BP_SYST 136; BP_SYST 146; BP_DIAS 75; BP_DIAS 77; PULSE 79; RESP 18; TEMP 98; O2SAT 97
[2017-08-05 17:56] LABS: SODIUM,RANDOM URINE 197 MEQ/L
[2017-08-05 18:20] LABS: OSMOLALITY,URINE 718 MOSM/KG (300-1300)
[2017-08-05 20:00] VITALS: BP 142/79; PULSE 64; PULSE 69; RESP 16; TEMP 98.9; O2SAT 98
--- NOTE | 2017-08-05 20:02 | HHI.PR ---
Subjective Remarks Patient denies cp/sob. Patient is awake and conversant. Afebrile. Objective Vitals Vital Signs Date Time Temp Pulse Resp B/P (MAP) Pulse Ox O2 Delivery O2 Flow Rate FiO2 08/05/17 16:00 98.0 79 18 146/75 (98) 97 136/77 (96) 08/05/17 12:00 96.7 90 18 174/82 (112) 97 08/05/17 08:00 96.9 81 18 144/75 (98) 97 08/05/17 04:00 98.1 67 16 140/62 (88) 94 08/05/17 00:00 97.9 69 16 136/71 (92) 98 08/04/17 20:00 98.1 88 17 142/90 (107) 94 I/O 08/04/17 08/04/17 08/04/17 08/05/17 08/05/17 08/05/17 07:00 15:00 23:00 07:00 15:00 23:00 Intake Total 1550 ml 500 ml 290 ml 100 ml 720 ml Output Total 700 ml 575 ml 850 ml 550 ml Balance 850 ml 500 ml -285 ml -750 ml 170 ml Intake Oral 550 ml 290 ml 100 ml 720 ml IV Total 1000 ml 500 ml Output Urine Total 700 ml 575 ml 850 ml 550 ml # Bowel Movements 1 10 5 Result Diagram: 08/05/17 1100 08/05/17 1100 Imaging Last Impressions Cervical Spine MRI 08/05/171457 Signed Impressions: Service Date/Time: Saturday, August 05, 2017 08:14 - CONCLUSION: Multilevel degenerative changes with disc/osteophyte complexes causing focal indentation of the thecal sac on the left side at C5-6 and C6-7. No evidence of cord compression. Multilevel bony neural foraminal stenosis as described above. Jc Watson MD Brain MRI 08/05/171457 Signed Impressions: Service Date/Time: Saturday, August 05, 2017 08:14 - CONCLUSION: 1. No acute intracranial abnormality identified. Juancarlos Hernandez MD Carotid Artery Ultrasound 08/04/171457 Signed Impressions: Service Date/Time: July 15:24 - CONCLUSION: No evidence of flow-limiting carotid stenosis. Tyler Arriola MD Chest X-Ray 08/03/17 1019 Signed Impressions: Service Date/Time: Thursday, August 03, 2017 10:40 - CONCLUSION: The lungs are clear. No evidence of pneumothorax. Jc Watson MD Head CT 08/03/17 0000 Signed Impressions: Service Date/Time: Thursday, August 03, 2017 12:13 - CONCLUSION: Normal examination for a patient of this age. No significant change has occurred. Dillon Rivera MD CT Angiography 08/03/17 0000 Signed Impressions: Service Date/Time: Thursday, August 03, 2017 20:32 - CONCLUSION: 1. No pulmonary embolus identified. 2. Postsurgical changes involving the esophagus. This is stable compared to the patient's previous stem. Juancarlos Hernandez MD Objective Remarks GENERAL: Awake and alert, NAD SKIN: Warm and dry. HEAD: Normocephalic. EYES: No scleral icterus. No injection or drainage. NECK: Supple, trachea midline. No JVD or lymphadenopathy. CARDIOVASCULAR: Regular rate and rhythm without murmurs, gallops, or rubs. RESPIRATORY: Breath sounds equal bilaterally. No accessory muscle use. GASTROINTESTINAL: Abdomen soft, non-tender, nondistended. MUSCULOSKELETAL: No cyanosis, or edema. BACK: Nontender without obvious deformity. No CVA tenderness. on soft wrist restraints. Medications and IVs Current Medications Medications (Trade) Dose Ordered Sig/Kerry Route Start Time Stop Time Status Last Admin (NS Flush) 2 ml UNSCH PRN IV FLUSH 08/03/17 10:30 (NS Flush) 2 ml BID IV FLUSH 08/03/17 21:00 08/04/17 11:54 (Narcan Inj) 0.4 mg UNSCH PRN IV PUSH 08/03/17 10:45 (Tylenol) 650 mg Q4H PRN PO 08/03/17 11:15 (Pepcid) 20 mg HS PO 08/03/17 21:00 08/04/17 20:47 (Synthroid) 75 mcg DAILY@0600 PO 08/04/17 06:00 08/05/17 05:56 (Sodium Chloride) 1 gm BID PO 08/03/17 21:00 08/04/17 20:47 (D50w (Vial) Inj) 50 ml UNSCH PRN IV PUSH 08/03/17 14:45 (Glucagon Inj) 1 mg UNSCH PRN OTHER 08/03/17 14:45 (Lovenox Inj) 40 mg Q24H SQ 08/03/17 15:00 08/05/17 15:14 (Haldol Inj) 2 mg Q8H PRN IM 08/04/17 11:30 08/05/17 07:53 A/P Problem List: (1) Encephalopathy acute ICD Code: G93.40 - Encephalopathy, unspecified Status: Acute Plan: Encephalopathy seems to be improving. Psychiatry consulted. Agree with psychiatry, this is likely metabolic encephalopathy. Medical workup ordered. CT of the head negative for acute process. MRI of the brain negative. Carotid ultrasounds are negative for stenosis. MARCELA screen negative. Encephalopathy likely secondary to hyponatremia which has been worsening. (2) Hyponatremia ICD Code: E87.1 - Hypo-osmolality and hyponatremia Plan: Suspect hyponatremia is playing a big component on the patient's delirium. Suspect SIADH. Discontinue IV normal saline and will start the patient on sodium chloride tablets. Nephrology consulted and following. (3) Syncope ICD Code: R55 - Syncope and collapse Plan: The patient sustained a witnessed syncopal episode on August 03, 2017. Thought to be secondary to poor oral intake and increased medications. Per medical records the patient received Seroquel, Benadryl, trazodone. Syncope treated with IV hydration and fluid bolus and resolved. The patient was kept on IV normal saline at 84 cc/h. Leukocytosis likely stress induced. No result. Urinalysis checked and negative. Chest x-ray with lungs clear. There is some degree of neurology consulted. Appreciate recommendations. The patient has some degree of orthostatic hypotension. Suspect syncopal episode secondary to orthostatic hypotension. (4) Dysphagia ICD Code: R13.10 - Dysphagia, unspecified Plan: Dysphagia secondary to achalasia. GI consulted. EGD 08/01/17 showed class D esophagitis. Near circumferential mass 3 x 3 cm in size found in the distal esophagus. Esophageal biopsies shows gastric mucosa with severe acute and chronic inflammation and acute esophagitis. Ana on EGD. On Diflucan. Patient needs to be upright to assist with esophageal emptying. Diflucan for 7 days. Mechanical soft diet (5) Ana esophagitis ICD Code: B37.81 - Candidal esophagitis Status: Acute Plan: As seen on esophageal biopsy. I will start the patient on Diflucan 100 mg p.o. daily. Check HIV screen. (6) Gastritis ICD Code: K29.70 - Gastritis, unspecified, without bleeding Plan: I will discontinue Pepcid and start the patient on Protonix 40 mg p.o. twice daily. (7) Weight loss ICD Code: R63.4 - Abnormal weight loss Status: Acute Plan: Likely secondary to decreased oral intake. I will start the patient on a appetite stimulant. I will start the patient on Megace. Dietitian consulted. Recommended and should like 3 times daily. Assessment and Plan DVT prophylaxis: Continue Lovenox subcutaneously. Discharge Planning Pending clinical improvement and improvement of hyponatremia. Problem Qualifiers (1) Syncope: Qualified Codes: R55 - Syncope and collapse (2) Dysphagia: Qualified Codes: R13.10 - Dysphagia, unspecified (3) Gastritis: Qualified Codes: K29.00 - Acute gastritis without bleeding Elliot Ayala MD Aug 05, 2017 20:02
[2017-08-05] MEDS: FLUCONAZOLE 100 MG TAB PO SCH (21:22)
[2017-08-05] MEDS: PANTOPRAZOLE SOD 40 MG DELAYED RELEASE TAB PO SCH (21:22)
--- NOTE | 2017-08-05 21:53 | MG ---
cc: FORD ALLEN MD Lab No: Date: 08/05/17 Age: 72 Sex: M Race: An EEG was obtained on this 72-year-old patient being evaluated for unresponsiveness. The patient is awake and asleep. The EEG shows beta activity diffusely. There are some theta and delta rhythms bilaterally during sleep. The background seems to be reactive. There is artifact and there are lack of alpha rhythms. but the background is reactive. Photic stimulation disclosed no significant change. INTERPRETATION Probably normal awake and asleep EEG. Ford Allen MD [facility] /9:12 PM /9:47 PM
[2017-08-06] VITALS: BP 140/74; PULSE 72; PULSE 85; RESP 16; TEMP 98.7; O2SAT 94
[2017-08-06 04:00] VITALS: BP 139/65; PULSE 73; PULSE 77; RESP 16; TEMP 96.9; O2SAT 94
[2017-08-06] MEDS: LEVOTHYROXINE SODIUM 75 MCG TAB PO SCH (05:38)
[2017-08-06] MEDS: SODIUM CHLORIDE 1 GRAM TAB PO SCH ×3 (07:48→16:00)
[2017-08-06] MEDS: PANTOPRAZOLE SOD 40 MG DELAYED RELEASE TAB PO SCH ×2 (07:48→21:02)
[2017-08-06] MEDS: SODIUM CHLORIDE 0.9% FLUSH 10 ML FLUSH IV FLUSH SCH ×2 (07:48→21:00)
[2017-08-06] MEDS: FLUCONAZOLE 100 MG TAB PO SCH (07:48)
[2017-08-06 08:00] VITALS: BP 154/85; PULSE 73; RESP 17; TEMP 95.9; O2SAT 95
[2017-08-06 11:09] LABS: AUTOMATED NEUTROPHIL # 5.4 TH/MM3 (1.8-7.7); BASOPHIL % 0.2 % (0.0-2.0); EOSINOPHIL % 0.2 % (0.0-4.0); HEMATOCRIT 32.7 % (39.0-51.0); HEMOGLOBIN 11.7 GM/DL (13.0-17.0); LYMPH % 11.6 % (9.0-44.0); LYMPHOCYTE # 0.8 TH/MM3 (1.0-4.8); MEAN CELL VOLUME 83.6 FL (80.0-100.0); MEAN CORPUSCULAR HGB CONC 35.8 % (32.0-36.0); MEAN PLATELET VOLUME 7.3 FL (7.0-11.0); MONO % 7.9 % (0.0-8.0); MONOCYTE # 0.5 TH/MM3 (0-0.9); NEUT % 80.1 % (16.0-70.0); PLATELET COUNT 270 TH/MM3 (150-450); RED BLOOD COUNT 3.91 MIL/MM3 (4.50-5.90); RED CELL DISTRIBUTION WIDTH 13.3 % (11.6-17.2); WHITE BLOOD COUNT 6.7 TH/MM3 (4.0-11.0)
[2017-08-06 11:33] LABS: ALKALINE PHOSPHATASE 75 U/L (45-117); ALT (GPT) 40 U/L (12-78); AST (GOT) 32 U/L (15-37); BICARBONATE 26.8 MEQ/L (21.0-32.0); BLOOD UREA NITROGEN 13 MG/DL (7-18); CALCIUM 9.6 MG/DL (8.5-10.1); CHLORIDE 88 MEQ/L (98-107); CREATININE 0.93 MG/DL (0.60-1.30); GLOMERULAR FILTRATION RATE 80 ML/MIN (>89); GLUCOSE,RANDOM 89 MG/DL (74-106); MAGNESIUM 1.6 MG/DL (1.5-2.5); PHOSPHORUS 2.9 MG/DL (2.5-4.9); TOTAL BILIRUBIN ADULT 0.9 MG/DL (0.2-1.0); TOTAL PROTEIN 7.1 GM/DL (6.4-8.2)
[2017-08-06 11:56] LABS: SODIUM (NA) 123 MEQ/L (136-145)
[2017-08-06 12:00] VITALS: BP_SYST 140; BP_SYST 144; BP_DIAS 85; PULSE 75; RESP 18; TEMP 97.8; O2SAT 95
[2017-08-06] MEDS: ENOXAPARIN SODIUM 40 MG/0.4 ML SYRINGE SQ SCH (13:28)
--- NOTE | 2017-08-06 15:19 | HHI.NPPN ---
Subjective Additional Remarks Awake, alert. No acute complaints Objective Data Data Vital Signs Date Time Temp Pulse Resp B/P (MAP) Pulse Ox O2 Delivery O2 Flow Rate FiO2 08/06/17 12:00 97.8 75 18 140/85 (103) 95 144/85 (104) 08/06/17 08:00 95.9 73 17 154/85 (108) 95 08/06/17 04:00 73 08/06/17 04:00 96.9 77 16 139/65 (89) 94 08/06/17 00:00 85 08/06/17 00:00 98.7 72 16 140/74 (96) 94 08/05/17 20:00 64 08/05/17 20:00 98.9 69 16 142/79 (100) 98 08/05/17 16:00 98.0 79 18 146/75 (98) 97 136/77 (96) -: 08/06/17 1002 08/06/17 1002 Physical Exam General Appearance: No Acute Distress, Comfortable Throat Throat Exam: Oral Mucosa [place]y & Moist Pulmonary Resp Exam: Clear Bilaterally Cardiology CV Exam: Regular, Normal Sinus Rhythm Gastrointestinal/Abdomen GI Exam: Soft, Non-Tender, Bowel Sounds Present Genitourinary Exam: Clear Urine Integumentary Skin Exam: Warm, Dry, Intact Extremeties Extremities Exam: No Edema Neurologic Neuro Exam: Alert, Awake Assessment/Plan Problem List: (1) Hyponatremia ICD Codes: E87.1 - Hypo-osmolality and hyponatremia Plan: Hyponatremia his sodium level is 123 today. His hyponatremia appears somewhat chronic - ongoing hyponatremia and seen earlier in the month with Na 116 on 07/18 (treated with salt tablets/ hypertonic saline and fluid restriction at the time) 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 Had been on NS, which was stopped given worsening Na levels. Given ongoing worsening of Na, will attempt trial of Samsca 15mg x1. Based on response, may repeat dose or increased dose tomorrow. Follow serial Na levels. Goal less than 6-8 meq correction/ 24 hours. (2) Schizoaffective disorder ICD Codes: F25.9 - Schizoaffective disorder, unspecified Status: Acute (3) BPH (benign prostatic hyperplasia) ICD Codes: N40.0 - Benign prostatic hyperplasia without lower urinary tract symptoms Plan: has Juancarlos Vasquez MD Aug 06, 2017 15:19
[2017-08-06] MEDS ORDERED: TOLVAPTAN 15 MG TAB PO ONE (15:30)
[2017-08-06 16:00] VITALS: BP_SYST 114; BP_SYST 138; BP_SYST 142; BP_DIAS 74; BP_DIAS 84; PULSE 74; RESP 18; TEMP 97.6; O2SAT 97
[2017-08-06] MEDS: HALOPERIDOL LACTATE 5 MG/ML AMP IM PRN (16:01)
--- NOTE | 2017-08-06 19:49 | HHI.PR ---
Subjective Remarks Deferred entry, patient seen earlier around 12:30. The patient seems to be more awake denies chest pain or shortness of breath. Objective Vitals Vital Signs Date Time Temp Pulse Resp B/P (MAP) Pulse Ox O2 Delivery O2 Flow Rate FiO2 08/06/17 16:00 97.6 74 18 138/84 (102) 97 142/84 (103) 114/74 (87) 08/06/17 12:00 97.8 75 18 140/85 (103) 95 144/85 (104) 08/06/17 08:00 95.9 73 17 154/85 (108) 95 08/06/17 04:00 73 08/06/17 04:00 96.9 77 16 139/65 (89) 94 08/06/17 00:00 85 08/06/17 00:00 98.7 72 16 140/74 (96) 94 08/05/17 20:00 64 08/05/17 20:00 98.9 69 16 142/79 (100) 98 I/O 08/05/17 08/05/17 08/05/17 08/06/17 08/06/17 08/06/17 07:00 15:00 23:00 07:00 15:00 23:00 Intake Total 100 ml 720 ml 580 ml 700 ml Output Total 850 ml 550 ml 800 ml 1050 ml Balance -750 ml 170 ml -220 ml -350 ml Intake Oral 100 ml 720 ml 580 ml 700 ml Output Urine Total 850 ml 550 ml 800 ml 1050 ml # Voids 3 # Bowel Movements 10 5 4 1 Result Diagram: 08/06/17 1002 08/06/17 1002 Imaging Last Impressions Cervical Spine MRI 08/05/171457 Signed Impressions: Service Date/Time: Saturday, August 05, 2017 08:14 - CONCLUSION: Multilevel degenerative changes with disc/osteophyte complexes causing focal indentation of the thecal sac on the left side at C5-6 and C6-7. No evidence of cord compression. Multilevel bony neural foraminal stenosis as described above. Jc Watson MD Brain MRI 08/05/171457 Signed Impressions: Service Date/Time: Saturday, August 05, 2017 08:14 - CONCLUSION: 1. No acute intracranial abnormality identified. Juancarlos Hernandez MD Carotid Artery Ultrasound 08/04/171457 Signed Impressions: Service Date/Time: July 15:24 - CONCLUSION: No evidence of flow-limiting carotid stenosis. Tyler Arriola MD Chest X-Ray 08/03/17 1019 Signed Impressions: Service Date/Time: Thursday, August 03, 2017 10:40 - CONCLUSION: The lungs are clear. No evidence of pneumothorax. Jc Watson MD Head CT 08/03/17 0000 Signed Impressions: Service Date/Time: Thursday, August 03, 2017 12:13 - CONCLUSION: Normal examination for a patient of this age. No significant change has occurred. Dillon Rivera MD CT Angiography 08/03/17 0000 Signed Impressions: Service Date/Time: Thursday, August 03, 2017 20:32 - CONCLUSION: 1. No pulmonary embolus identified. 2. Postsurgical changes involving the esophagus. This is stable compared to the patient's previous stem. Juancarlos Hernandez MD Objective Remarks GENERAL: Awake and alert, NAD SKIN: Warm and dry. HEAD: Normocephalic. EYES: No scleral icterus. No injection or drainage. NECK: Supple, trachea midline. No JVD or lymphadenopathy. CARDIOVASCULAR: Regular rate and rhythm without murmurs, gallops, or rubs. RESPIRATORY: Breath sounds equal bilaterally. No accessory muscle use. GASTROINTESTINAL: Abdomen soft, non-tender, nondistended. MUSCULOSKELETAL: No cyanosis, or edema. BACK: Nontender without obvious deformity. No CVA tenderness. on soft wrist restraints. Medications and IVs Current Medications Medications (Trade) Dose Ordered Sig/Kerry Route Start Time Stop Time Status Last Admin (NS Flush) 2 ml UNSCH PRN IV FLUSH 08/03/17 10:30 (NS Flush) 2 ml BID IV FLUSH 08/03/17 21:00 08/04/17 11:54 (Narcan Inj) 0.4 mg UNSCH PRN IV PUSH 08/03/17 10:45 (Tylenol) 650 mg Q4H PRN PO 08/03/17 11:15 (Synthroid) 75 mcg DAILY@0600 PO 08/04/17 06:00 08/06/17 05:38 (D50w (Vial) Inj) 50 ml UNSCH PRN IV PUSH 08/03/17 14:45 (Glucagon Inj) 1 mg UNSCH PRN OTHER 08/03/17 14:45 (Lovenox Inj) 40 mg Q24H SQ 08/03/17 15:00 08/06/17 13:28 (Haldol Inj) 2 mg Q8H PRN IM 08/04/17 11:30 08/06/17 16:01 (Diflucan) 100 mg DAILY PO 08/05/17 20:00 08/06/17 07:48 (Protonix) 40 mg Q12HR PO 08/05/17 21:00 08/06/17 07:48 (Sodium Chloride) 1 gm TID PO 08/06/17 09:00 08/06/17 16:00 A/P Problem List: (1) Encephalopathy acute ICD Code: G93.40 - Encephalopathy, unspecified Status: Acute Plan: Encephalopathy seems to be improving. Psychiatry consulted. Agree with psychiatry, this is likely metabolic encephalopathy. Medical workup ordered. CT of the head negative for acute process. MRI of the brain negative. Carotid ultrasounds are negative for stenosis. MARCELA screen negative. Encephalopathy is improving. Continue to monitor neurological status. (2) Hyponatremia ICD Code: E87.1 - Hypo-osmolality and hyponatremia Plan: Suspect hyponatremia is playing a big component on the patient's delirium. Suspect SIADH. Discontinue IV normal saline and will start the patient on sodium chloride tablets. Nephrology consulted and following 08/06 sodium level is 123 today. Hyponatremia appears somewhat chronic and possibly secondary to SIADH from psychiatric/seizure medications. The patient had been on normal saline which have been stopped given worsening sodium levels. As per nephrology recommendations will attempt trial of Samsca 15 mg 1. Continue to follow-up serial sodium levels. Goal less than 6-8 meq correction/ 24 hours. (3) Syncope ICD Code: R55 - Syncope and collapse Plan: The patient sustained a witnessed syncopal episode on August 03, 2017. Thought to be secondary to poor oral intake and increased medications. Per medical records the patient received Seroquel, Benadryl, trazodone. Syncope treated with IV hydration and fluid bolus and resolved. The patient was kept on IV normal saline at 84 cc/h. Leukocytosis likely stress induced. No result. Urinalysis checked and negative. Chest x-ray with lungs clear. There is some degree of neurology consulted. Appreciate recommendations. The patient has some degree of orthostatic hypotension. Suspect syncopal episode secondary to orthostatic hypotension. (4) Dysphagia ICD Code: R13.10 - Dysphagia, unspecified Plan: Dysphagia secondary to achalasia. GI consulted. EGD 08/01/17 showed class D esophagitis. Near circumferential mass 3 x 3 cm in size found in the distal esophagus. Esophageal biopsies shows gastric mucosa with severe acute and chronic inflammation and acute esophagitis. Ana on EGD. On Diflucan. Patient needs to be upright to assist with esophageal emptying. Diflucan for 7 days. Mechanical soft diet (5) Ana esophagitis ICD Code: B37.81 - Candidal esophagitis Status: Acute Plan: As seen on esophageal biopsy. I will start the patient on Diflucan 100 mg p.o. daily. Check HIV screen. (6) Gastritis ICD Code: K29.70 - Gastritis, unspecified, without bleeding Plan: I will discontinue Pepcid discontinued on 08/05 and patient started on Protonix 40 minutes by mouth twice a day. (7) Weight loss ICD Code: R63.4 - Abnormal weight loss Status: Acute Plan: Likely secondary to decreased oral intake. I will start the patient on a appetite stimulant. I will start the patient on Megace. Dietitian consulted. Assessment and Plan DVT prophylaxis: Continue Lovenox subcutaneously. Discharge Planning Pending clinical improvement and improvement of hyponatremia. Problem Qualifiers (1) Syncope: Qualified Codes: R55 - Syncope and collapse (2) Dysphagia: Qualified Codes: R13.10 - Dysphagia, unspecified (3) Gastritis: Qualified Codes: K29.00 - Acute gastritis without bleeding Elliot Ayala MD Aug 06, 2017 19:48
[2017-08-06 20:00] VITALS: BP 142/79; PULSE 80; PULSE 83; RESP 18; TEMP 96.1; O2SAT 96
[2017-08-07] VITALS (8 sets, daily range): BP systolic 108–137; BP diastolic 72–84; PULSE 81–101; RESP 17–18; TEMP 95.4–97.8; O2SAT 94–98
[2017-08-07] MEDS: LEVOTHYROXINE SODIUM 75 MCG TAB PO SCH (06:00)
[2017-08-07 06:01] LABS: AUTOMATED NEUTROPHIL # 5.7 TH/MM3 (1.8-7.7); BASOPHIL % 0.1 % (0.0-2.0); EOSINOPHIL % 0.1 % (0.0-4.0); HEMATOCRIT 36.4 % (39.0-51.0); LYMPH % 11.4 % (9.0-44.0); LYMPHOCYTE # 0.8 TH/MM3 (1.0-4.8); MEAN CELL VOLUME 83.2 FL (80.0-100.0); MEAN CORPUSCULAR HEMOGLOBIN 29.6 PG (27.0-34.0); MEAN CORPUSCULAR HGB CONC 35.6 % (32.0-36.0); MEAN PLATELET VOLUME 6.9 FL (7.0-11.0); MONO % 11.7 % (0.0-8.0); MONOCYTE # 0.9 TH/MM3 (0-0.9); NEUT % 76.7 % (16.0-70.0); PLATELET COUNT 337 TH/MM3 (150-450); RED BLOOD COUNT 4.38 MIL/MM3 (4.50-5.90); RED CELL DISTRIBUTION WIDTH 13.3 % (11.6-17.2); WHITE BLOOD COUNT 7.5 TH/MM3 (4.0-11.0)
[2017-08-07 06:29] LABS: ALBUMIN 4.2 GM/DL (3.4-5.0); AST (GOT) 24 U/L (15-37); BICARBONATE 24.7 MEQ/L (21.0-32.0); BLOOD UREA NITROGEN 13 MG/DL (7-18); CALCIUM 10.5 MG/DL (8.5-10.1); CHLORIDE 95 MEQ/L (98-107); CREATININE 0.96 MG/DL (0.60-1.30); GLOMERULAR FILTRATION RATE 77 ML/MIN (>89); GLUCOSE,RANDOM 114 MG/DL (74-106); MAGNESIUM 2.1 MG/DL (1.5-2.5); SODIUM (NA) 129 MEQ/L (136-145)
[2017-08-07 06:32] LABS: ALKALINE PHOSPHATASE 86 U/L (45-117); ALT (GPT) 41 U/L (12-78); PHOSPHORUS 3.2 MG/DL (2.5-4.9); TOTAL BILIRUBIN ADULT 0.8 MG/DL (0.2-1.0); TOTAL PROTEIN 7.7 GM/DL (6.4-8.2)
[2017-08-07] MEDS: SODIUM CHLORIDE 0.9% FLUSH 10 ML FLUSH IV FLUSH SCH ×2 (08:27→20:05)
[2017-08-07] MEDS: PANTOPRAZOLE SOD 40 MG DELAYED RELEASE TAB PO SCH ×2 (08:27→20:05)
[2017-08-07] MEDS: FLUCONAZOLE 100 MG TAB PO SCH (08:27)
[2017-08-07] MEDS: SODIUM CHLORIDE 1 GRAM TAB PO SCH ×3 (08:27→17:45)
--- NOTE | 2017-08-07 13:48 | HHI.PR ---
Subjective Remarks Sodium is improving. The patient denies chest pain or shortness of breath. Patient is awake and alert. No agitation reported. Objective Vitals Vital Signs Date Time Temp Pulse Resp B/P (MAP) Pulse Ox O2 Delivery O2 Flow Rate FiO2 08/07/17 12:00 96.5 101 17 114/78 (90) 97 08/07/17 08:00 97.8 91 18 129/83 (98) 97 08/07/17 04:00 96.6 95 18 123/83 (96) 96 08/07/17 00:00 97.6 84 18 137/84 (101) 94 08/06/17 20:00 80 08/06/17 20:00 96.1 83 18 142/79 (100) 96 08/06/17 16:00 97.6 74 18 138/84 (102) 97 142/84 (103) 114/74 (87) I/O 08/06/17 08/06/17 08/06/17 08/07/17 08/07/17 08/07/17 07:00 15:00 23:00 07:00 15:00 23:00 Intake Total 580 ml 700 ml Output Total 800 ml 1050 ml 3675 ml Balance -220 ml -350 ml -3675 ml Intake Oral 580 ml 700 ml Output Urine Total 800 ml 1050 ml 3675 ml # Voids 3 # Bowel Movements 4 1 1 Result Diagram: 08/07/17 0533 08/07/17 0533 Imaging Last Impressions Cervical Spine MRI 08/05/171457 Signed Impressions: Service Date/Time: Saturday, August 05, 2017 08:14 - CONCLUSION: Multilevel degenerative changes with disc/osteophyte complexes causing focal indentation of the thecal sac on the left side at C5-6 and C6-7. No evidence of cord compression. Multilevel bony neural foraminal stenosis as described above. Jc Watson MD Brain MRI 08/05/171457 Signed Impressions: Service Date/Time: Saturday, August 05, 2017 08:14 - CONCLUSION: 1. No acute intracranial abnormality identified. Juancarlos Hernandez MD Carotid Artery Ultrasound 08/04/171457 Signed Impressions: Service Date/Time: July 15:24 - CONCLUSION: No evidence of flow-limiting carotid stenosis. Tyler Arriola MD Chest X-Ray 08/03/17 1019 Signed Impressions: Service Date/Time: Thursday, August 03, 2017 10:40 - CONCLUSION: The lungs are clear. No evidence of pneumothorax. Jc Watson MD Head CT 08/03/17 0000 Signed Impressions: Service Date/Time: Thursday, August 03, 2017 12:13 - CONCLUSION: Normal examination for a patient of this age. No significant change has occurred. Dillon Rivera MD CT Angiography 08/03/17 0000 Signed Impressions: Service Date/Time: Thursday, August 03, 2017 20:32 - CONCLUSION: 1. No pulmonary embolus identified. 2. Postsurgical changes involving the esophagus. This is stable compared to the patient's previous stem. Juancarlos Hernandez MD Objective Remarks GENERAL: Awake and alert, NAD SKIN: Warm and dry. HEAD: Normocephalic. EYES: No scleral icterus. No injection or drainage. NECK: Supple, trachea midline. No JVD or lymphadenopathy. CARDIOVASCULAR: Regular rate and rhythm without murmurs, gallops, or rubs. RESPIRATORY: Breath sounds equal bilaterally. No accessory muscle use. GASTROINTESTINAL: Abdomen soft, non-tender, nondistended. MUSCULOSKELETAL: No cyanosis, or edema. BACK: Nontender without obvious deformity. No CVA tenderness. on soft wrist restraints. Medications and IVs Current Medications Medications (Trade) Dose Ordered Sig/Kerry Route Start Time Stop Time Status Last Admin (NS Flush) 2 ml UNSCH PRN IV FLUSH 08/03/17 10:30 (NS Flush) 2 ml BID IV FLUSH 08/03/17 21:00 08/04/17 11:54 (Narcan Inj) 0.4 mg UNSCH PRN IV PUSH 08/03/17 10:45 (Tylenol) 650 mg Q4H PRN PO 08/03/17 11:15 (Synthroid) 75 mcg DAILY@0600 PO 08/04/17 06:00 08/07/17 06:00 (D50w (Vial) Inj) 50 ml UNSCH PRN IV PUSH 08/03/17 14:45 (Glucagon Inj) 1 mg UNSCH PRN OTHER 08/03/17 14:45 (Lovenox Inj) 40 mg Q24H SQ 08/03/17 15:00 08/06/17 13:28 (Haldol Inj) 2 mg Q8H PRN IM 08/04/17 11:30 08/06/17 16:01 (Diflucan) 100 mg DAILY PO 08/05/17 20:00 08/07/17 08:27 (Protonix) 40 mg Q12HR PO 08/05/17 21:00 08/07/17 08:27 (Sodium Chloride) 1 gm TID PO 08/06/17 09:00 08/07/17 08:27 A/P Problem List: (1) Encephalopathy acute ICD Code: G93.40 - Encephalopathy, unspecified Status: Acute Plan: Encephalopathy seems to be improving. Psychiatry consulted. Agree with psychiatry, this is likely metabolic encephalopathy. Medical workup ordered. CT of the head negative for acute process. MRI of the brain negative. Carotid ultrasounds are negative for stenosis. MARCELA screen negative. Encephalopathy is improving. Continue to monitor neurological status. (2) Hyponatremia ICD Code: E87.1 - Hypo-osmolality and hyponatremia Plan: Suspect hyponatremia is playing a big component on the patient's delirium. Suspect SIADH. Discontinue IV normal saline and will start the patient on sodium chloride tablets. Nephrology consulted and following 08/06 sodium level is 123 today. Hyponatremia appears somewhat chronic and possibly secondary to SIADH from psychiatric/seizure medications. The patient had been on normal saline which have been stopped given worsening sodium levels. As per nephrology recommendations will attempt trial of Samsca 15 mg 1. Continue to follow-up serial sodium levels. Goal less than 6-8 meq correction/ 24 hours. 08/07 sodium is improving slowly, level 129 today. Continue management as per nephrology recommendations. Continue to monitor BMP. (3) Syncope ICD Code: R55 - Syncope and collapse Plan: The patient sustained a witnessed syncopal episode on August 03, 2017. Thought to be secondary to poor oral intake and increased medications. Per medical records the patient received Seroquel, Benadryl, trazodone. Syncope treated with IV hydration and fluid bolus and resolved. The patient was kept on IV normal saline at 84 cc/h. Leukocytosis likely stress induced. No result. Urinalysis checked and negative. Chest x-ray with lungs clear. There is some degree of neurology consulted. Appreciate recommendations. The patient has some degree of orthostatic hypotension. Suspect syncopal episode secondary to orthostatic hypotension. (4) Dysphagia ICD Code: R13.10 - Dysphagia, unspecified Plan: Dysphagia secondary to achalasia. GI consulted. EGD 08/01/17 showed class D esophagitis. Near circumferential mass 3 x 3 cm in size found in the distal esophagus. Esophageal biopsies shows gastric mucosa with severe acute and chronic inflammation and acute esophagitis. Ana on EGD. On Diflucan. Patient needs to be upright to assist with esophageal emptying. Diflucan for 7 days. Mechanical soft diet 08/07 HIV antibody screen negative. (5) Ana esophagitis ICD Code: B37.81 - Candidal esophagitis Status: Acute Plan: As seen on esophageal biopsy. I will start the patient on Diflucan 100 mg p.o. daily. Check HIV screen - pending (6) Gastritis ICD Code: K29.70 - Gastritis, unspecified, without bleeding Plan: I will discontinue Pepcid discontinued on 08/05 and patient started on Protonix 40 minutes by mouth twice a day. (7) Weight loss ICD Code: R63.4 - Abnormal weight loss Status: Acute Plan: Likely secondary to decreased oral intake. I will start the patient on a appetite stimulant. I will start the patient on Megace. Dietitian consulted - Recommended Ensure Enlive - Continue. Assessment and Plan DVT prophylaxis: Continue Lovenox subcutaneously. Discharge Planning Pending clinical improvement and improvement of hyponatremia. Problem Qualifiers (1) Syncope: Qualified Codes: R55 - Syncope and collapse (2) Dysphagia: Qualified Codes: R13.10 - Dysphagia, unspecified (3) Gastritis: Qualified Codes: K29.00 - Acute gastritis without bleeding Elliot Ayala MD Aug 07, 2017 13:48
--- NOTE | 2017-08-07 14:29 | HHI.GIFU ---
Subjective Remarks Sitting up in the chair eyes open Nonverbal but seems to understand simple questions Shakes his head yes or no Denies any abdominal pain (Norma Victor) Objective Vitals I&O Vital Signs Date Time Temp Pulse Resp B/P (MAP) Pulse Ox O2 Delivery O2 Flow Rate FiO2 08/07/17 12:00 96.5 101 17 114/78 (90) 97 08/07/17 08:00 97.8 91 18 129/83 (98) 97 08/07/17 04:00 96.6 95 18 123/83 (96) 96 08/07/17 00:00 97.6 84 18 137/84 (101) 94 08/06/17 20:00 80 08/06/17 20:00 96.1 83 18 142/79 (100) 96 08/06/17 16:00 97.6 74 18 138/84 (102) 97 142/84 (103) 114/74 (87) I/O 08/06/17 08/06/17 08/06/17 08/07/17 08/07/17 08/07/17 07:00 15:00 23:00 07:00 15:00 23:00 Intake Total 580 ml 700 ml Output Total 800 ml 1050 ml 3675 ml Balance -220 ml -350 ml -3675 ml Intake Oral 580 ml 700 ml Output Urine Total 800 ml 1050 ml 3675 ml # Voids 3 # Bowel Movements 4 1 1 Laboratory Laboratory Tests Test 08/07/17 05:33 White Blood Count 7.5 Red Blood Count 4.38 Hemoglobin 13.0 Hematocrit 36.4 Mean Corpuscular Volume 83.2 Mean Corpuscular Hemoglobin 29.6 Mean Corpuscular Hemoglobin Concent 35.6 Red Cell Distribution Width 13.3 Platelet Count 337 Mean Platelet Volume 6.9 Neutrophils (%) (Auto) 76.7 Lymphocytes (%) (Auto) 11.4 Monocytes (%) (Auto) 11.7 Eosinophils (%) (Auto) 0.1 Basophils (%) (Auto) 0.1 Neutrophils # (Auto) 5.7 Lymphocytes # (Auto) 0.8 Monocytes # (Auto) 0.9 Eosinophils # (Auto) 0.0 Basophils # (Auto) 0.0 CBC Comment DIFF FINAL Differential Comment Blood Urea Nitrogen 13 Creatinine 0.96 Random Glucose 114 Total Protein 7.7 Albumin 4.2 Calcium Level 10.5 Phosphorus Level 3.2 Magnesium Level 2.1 Alkaline Phosphatase 86 Aspartate Amino Transf (AST/SGOT) 24 Alanine Aminotransferase (ALT/SGPT) 41 Total Bilirubin 0.8 Sodium Level 129 Potassium Level 3.9 Chloride Level 95 Carbon Dioxide Level 24.7 Anion Gap 9 Estimat Glomerular Filtration Rate 77 Date/Time Source Procedure Growth Status 08/04/17 11:10 Blood Peripheral Aerobic Blood Culture - Preliminary NO GROWTH IN 3 DAYS Resulted 08/04/17 11:10 Blood Peripheral Anaerobic Blood Culture - Preliminary NO GROWTH IN 3 DAYS Resulted Imaging Last Impressions Cervical Spine MRI 08/05/171457 Signed Impressions: Service Date/Time: Saturday, August 05, 2017 08:14 - CONCLUSION: Multilevel degenerative changes with disc/osteophyte complexes causing focal indentation of the thecal sac on the left side at C5-6 and C6-7. No evidence of cord compression. Multilevel bony neural foraminal stenosis as described above. Jc Watson MD Brain MRI 08/05/17 1458 Signed Impressions: Service Date/Time: Saturday, August 05, 2017 08:14 - CONCLUSION: 1. No acute intracranial abnormality identified. Juancarlos Hernandez MD Carotid Artery Ultrasound 08/04/171457 Signed Impressions: Service Date/Time: July 15:24 - CONCLUSION: No evidence of flow-limiting carotid stenosis. Tyler Arriola MD Chest X-Ray 08/03/17 1019 Signed Impressions: Service Date/Time: Thursday, August 03, 2017 10:40 - CONCLUSION: The lungs are clear. No evidence of pneumothorax. Jc Watson MD Head CT 08/03/17 0000 Signed Impressions: Service Date/Time: Thursday, August 03, 2017 12:13 - CONCLUSION: Normal examination for a patient of this age. No significant change has occurred. Dillon Rivera MD CT Angiography 08/03/17 0000 Signed Impressions: Service Date/Time: Thursday, August 03, 2017 20:32 - CONCLUSION: 1. No pulmonary embolus identified. 2. Postsurgical changes involving the esophagus. This is stable compared to the patient's previous stem. Juancarlos Hernandez MD Physical Exam HEENT: Normocephalic; atraumatic, PERRLA CHEST: Even/unlabored CARDIAC: RRR ABDOMEN: Soft, nondistended, nontender; bowel sounds active EXTREMITIES: No clubbing, cyanosis, or edema. SKIN: Pale , warm dry CHAINMAN: Awake, shakes head yes or no but nonverbal today (Norma Victor) Assessment and Plan Plan - dysphagia - chronic, pt admits hx achalasia. c/o bolus sensation. CT chest indicated he has had gastric surgery, dilated esophagus with luminal debris. No aspiration seen Barium swallow 07/29/17 Enlarged dilated esophagus that does contain residual food. Surgical clips seen at the GE junction. Possible mass present at the GE junction. Patient needs to be upright to assist with esophageal emptying. Probable long- standing either achalasia or partial obstruction with surgical clips in the GE junction. There is the suggestion of the mass at the GE junction as well. Suggest viewing. Palliative care saw patient for consult. Currently patient has some confusion but is more cooperative today per the staff than before the last few days. Patient denies any nausea or vomiting. Continues with IV fluids at 84 cc an hour. 07/30/17 pt resting in bed. per RN does not want procedures and wants to . d/w brother Tito Catherine barium swallow findings, History of Constipation noted on 08/07/17 per nurse. 4 bowel movements noted on 08/06/17 and 1 BM on 08/07/17. Anemia, initially seen on admission, now has hemoglobin of 13, normal range. [phone], He and other brother Tyler would like to see if pt can be made more stable from psych point of view so that he could make his own decision about pursuing EGD. (08/02) EGD --> Class D esoph for bowel esophagitis, biopsy. Near circumferential mass 3x3 cm in size, was found in the distal esophagus, multiple biopsies. Erythematous gastritis in the gastric antrum. Normal duodenal mucosa in the 2nd part of the duodenum., Hiatal hernia. Plan: Mechanical soft diet , monitor food intake I&O Milk of magnesia ordered as needed, if ineffective can use MiraLAX daily EGD biopsies pending Diflucan for 7 days Monitor labs On a doctor for any obvious bleeding Further recommendations based on findings of above Patient seen per myself and Dr. Durham, note is written on his behalf (Norma Victor) Plan Patient was seen and examined, agree with above-noted, continue monitoring diet intake, follow-up an EGD biopsy (Marco Durham MD) Norma Victor Aug 07, 2017 14:29 Marco Durham MD Aug 07, 2017 17:34
[2017-08-07] MEDS ORDERED: MAGNESIUM HYDROXIDE SUSP 30 ML CUP PO PRN (14:30)
--- NOTE | 2017-08-07 15:43 | HHI.NPPN ---
Subjective Additional Remarks Awake, alert. No acute complaints Objective Data Data Vital Signs Date Time Temp Pulse Resp B/P (MAP) Pulse Ox O2 Delivery O2 Flow Rate FiO2 08/07/17 12:00 96.5 101 17 114/78 (90) 97 08/07/17 12:00 93 08/07/17 08:00 93 08/07/17 08:00 97.8 91 18 129/83 (98) 97 08/07/17 04:00 96.6 95 18 123/83 (96) 96 08/07/17 00:00 97.6 84 18 137/84 (101) 94 08/06/17 20:00 80 08/06/17 20:00 96.1 83 18 142/79 (100) 96 08/06/17 16:00 97.6 74 18 138/84 (102) 97 142/84 (103) 114/74 (87) -: 08/07/17 0533 08/07/17 0533 Physical Exam General Appearance: No Acute Distress, Comfortable Throat Throat Exam: Oral Mucosa [place] & Moist Pulmonary Resp Exam: Clear Bilaterally Cardiology CV Exam: Regular, Normal Sinus Rhythm Gastrointestinal/Abdomen GI Exam: Soft, Non-Tender, Bowel Sounds Present Genitourinary Exam: Clear Urine Integumentary Skin Exam: Warm, Dry, Intact Extremeties Extremities Exam: No Edema Neurologic Neuro Exam: Alert, Awake Assessment/Plan Problem List: (1) Hyponatremia ICD Codes: E87.1 - Hypo-osmolality and hyponatremia Plan: His hyponatremia appears somewhat chronic - ongoing hyponatremia and seen earlier in the month with Na 116 on 07/18 (treated with salt tablets/ hypertonic saline and fluid restriction at the time) 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 Had been on NS, which was stopped given worsening Na levels. Good response to 15mg PO dose of tolvaptan yesterday (Na 123 -> 129). 4.7 L UOP ( mostly free water diuresis post tolvaptan) Will repeat 15mg PO dose today. May repeat PRN Follow Na levels. Goal less than 6-8 meq correction/ 24 hours. (2) Schizoaffective disorder ICD Codes: F25.9 - Schizoaffective disorder, unspecified Status: Acute (3) BPH (benign prostatic hyperplasia) ICD Codes: N40.0 - Benign prostatic hyperplasia without lower urinary tract symptoms Plan: has Juancarlos Vasquez MD Aug 07, 2017 15:43
[2017-08-07] MEDS ORDERED: TOLVAPTAN 15 MG TAB PO ONE (15:45)
[2017-08-07] MEDS: MEGESTROL ACETATE SUSP 400 MG/10 ML CUP PO SCH (15:54)
[2017-08-07] MEDS: ENOXAPARIN SODIUM 40 MG/0.4 ML SYRINGE SQ SCH (15:54)
[2017-08-08] VITALS (9 sets, daily range): BP systolic 98–129; BP diastolic 58–87; PULSE 74–97; RESP 16–18; TEMP 95.7–98.7; O2SAT 92–98
[2017-08-08] MEDS: LEVOTHYROXINE SODIUM 75 MCG TAB PO SCH (06:13)
--- NOTE | 2017-08-08 07:11 | HHI.PR ---
Subjective Remarks sr Objective Vital Signs Date Time Temp Pulse Resp B/P (MAP) Pulse Ox O2 Delivery O2 Flow Rate FiO2 08/08/17 04:15 74 08/08/17 04:00 96.5 81 18 98/58 (71) 92 08/08/17 00:00 97.1 90 18 118/74 (89) 98 08/07/17 23:45 90 08/07/17 20:13 89 08/07/17 20:00 97.4 81 18 120/73 (89) 98 08/07/17 16:00 95.4 87 17 108/72 (84) 98 08/07/17 12:00 96.5 101 17 114/78 (90) 97 08/07/17 12:00 93 08/07/17 08:00 93 08/07/17 08:00 97.8 91 18 129/83 (98) 97 I/O 08/07/17 08/07/17 08/07/17 08/08/17 08/08/17 08/08/17 07:00 15:00 23:00 07:00 15:00 23:00 Intake Total 600 ml Output Total 3675 ml 700 ml 650 ml Balance -3675 ml -100 ml -650 ml Intake Oral 600 ml Output Urine Total 3675 ml 700 ml 650 ml # Bowel Movements 1 0 1 Result Diagram: 08/07/1733 08/07/17532 Objective Remarks awake alert moving all Assessment and Plan Assessment and Plan imp us carotid neg mri of brain and c spine neg and eeg nl and standing bp nl could dc neurowise consider cards for syncope echo and tlel neg Edmond Donohue MD Aug 08, 2017 07:11
[2017-08-08] MEDS: SODIUM CHLORIDE 0.9% FLUSH 10 ML FLUSH IV FLUSH SCH ×2 (08:36→19:57)
[2017-08-08] MEDS: PANTOPRAZOLE SOD 40 MG DELAYED RELEASE TAB PO SCH ×2 (08:37→19:58)
[2017-08-08] MEDS: FLUCONAZOLE 100 MG TAB PO SCH (08:37)
[2017-08-08] MEDS: SODIUM CHLORIDE 1 GRAM TAB PO SCH ×3 (08:37→16:57)
[2017-08-08] MEDS: POLYETHYLENE GLYCOL 17 GM PKG PO SCH (08:38)
[2017-08-08] MEDS: MEGESTROL ACETATE SUSP 400 MG/10 ML CUP PO SCH (08:38)
[2017-08-08 09:20] LABS: BICARBONATE 28.3 MEQ/L (21.0-32.0); CALCIUM 10.4 MG/DL (8.5-10.1); CREATININE 1.1 MG/DL (0.60-1.30)
[2017-08-08] MEDS: ENOXAPARIN SODIUM 40 MG/0.4 ML SYRINGE SQ SCH (14:10)
--- NOTE | 2017-08-08 15:43 | MB ---
cc: Hubert Espinoza DO DATE OF CONSULT: REASON FOR CONSULTATION: Syncope. HISTORY OF PRESENT ILLNESS: Tyler Catherine is a pleasant 72-year-old male who was transferred from the psych unit due to a syncopal episode on 08/03/2017. Patient is a horrible historian and so information is taken from the chart. Apparently, the patient was in psychiatry and was sitting on the toilet getting a wet towel bath when he became unresponsive, noncommunicative and pale. Nurse called out, and Dr. Ham saw the patient. Patient was placed on the bed, and at that time, his blood pressure was 105/60 and his heart rate was 80 and blood sugar of 110. He apparently has been watched with no further episodes. Neurology has since seen him and not felt that this was purely neurologic, and so they asked cardiology to see him for possible other causes of syncope. In seeing him, he is currently hemodynamically stable without symptoms while in bed. Telemetry shows sinus rhythm with occasional sinus tachycardia in the 100-110 range. PAST MEDICAL HISTORY: 1. Seizure disorder. 2. Schizoaffective disorder. 3. Achalasia. 4. BPH. 5. Hyponatremia with possible SIADH. PAST SURGICAL HISTORY: Multiple endoscopies. ALLERGIES: 1. DIVALPROEX. 2. METHYLPHENIDATE. 3. OLANZAPINE. MEDICATIONS: 1. Diphenhydramine 25 mg every 8 insomnia. 2. Flomax 0.4 mg daily. 3. Tylenol 650 mg every 4 hours as needed for pain or fever. 4. Trazodone 50 mg every night. 5. Ativan 1 mg every 6 hours as needed for anxiety. 6. Pepcid 20 mg every night. 7. Synthroid 75 daily. FAMILY HISTORY: Sister with liver cancer. SOCIAL HISTORY: Nonsmoker, nondrinker, no drug abuse. REVIEW OF SYSTEMS: Fourteen systems were reviewed including osteopathic, pertinent positives and negatives above, otherwise negative. PHYSICAL EXAMINATION: VITAL SIGNS: Temp 96.1, heart rate 82, blood pressure 129/87, respirations 17, pulse ox 94% on room air. GENERAL: The patient appears older than stated age, alert, and somewhat pale. Extraocular muscles intact. Mucous membranes moist. NECK: Supple, no JVD at 45 degrees, no carotid bruits heard bilaterally. Carotid upstroke is brisk in nature. HEART: Regular rate and rhythm. Positive first and second heart sounds without any murmurs, gallops or rubs. LUNGS: Clear to auscultation bilaterally. No wheezes, rales or rhonchi. ABDOMEN: Soft, nontender, nondistended. No organomegaly noted. EXTREMITIES: Show no clubbing, cyanosis, or edema. Femoral and distal pulses intact bilaterally. NEUROLOGIC: No focal deficits. SKIN: Warm, dry and intact. OSTEOPATHIC: No paraspinal tender points. LABORATORY DATA: Hemoglobin 13.0, hematocrit 36.4, platelets 337. Sodium 130, BUN 21, creatinine 1.1. Troponins negative x 3. Electrocardiogram (08/03/2017 at 2219), sinus rhythm, possible left atrial enlargement, possible incomplete right bundle branch block, left anterior fascicular block. IMPRESSION: 1. Syncopal episode of unknown cause. 2. Encephalopathy. 3. Hyponatremia, possibly secondary to syndrome of inappropriate antidiuretic hormone from psychiatric/seizure medications. 4. Dysphagia. 5. Weight loss secondary to decreased oral intake. RECOMMENDATIONS: 1. Mr. Catherine's syncopal episode is difficult to ascertain information from him and so overall difficult to determine as cause. 2. An echo has been checked and his overall ejection fraction is 60% with no significant valvular disease. 3. While here on telemetry, he has had no arrhythmias. 4. Syncopal episode may be due to overall poor intake. 5. Lastly, afterwards apparently, it was difficult to question the patient as Dr. Ham was trying to ask questions, and this may have been a postictal state, although no seizure activity was seen. 6. No further workup at this time. While in the medical side of the hospital, he will continue on telemetry. 7. He can follow up in the office for further recommendations, although it is difficult as he is unable to tell me any symptoms that he has and so Holter monitor would be based solely on detection of arrhythmias without symptoms. The patient for allowing me to see Tyler Catherine. If there are any questions, please do not hesitate to call. Hubert Espinoza, DO VGP/ERIC , 02:01 PM , 03:37 PM
--- NOTE | 2017-08-08 15:52 | RADRPT ---
EXAM DATE/TIME: 08/08/2017 15:29 [facility] COMPARISON: CT BRAIN W/O CONTRAST, August 03, 2017, 12:13. INDICATIONS : Altered mental status. RADIATION DOSE: 49.67 CTDIvol (mGy) MEDICAL HISTORY : None SURGICAL HISTORY : Appendectomy. ENCOUNTER: Initial ACUITY: 1 day PAIN SCALE: Non-responsive LOCATION: Bilateral head TECHNIQUE: Multiple contiguous axial images were obtained of the head. Using automated exposure control and adj ustment of the mA and/or kV according to patient size, radiation dose was kept as low as reasonably a chievable to obtain optimal diagnostic quality images. DICOM format image data is available electro nically for review and comparison. FINDINGS: CEREBRUM: The ventricles are normal for age. No evidence of midline shift, mass lesion, hemorrhage or acute in farction. No extra-axial fluid collections are seen. POSTERIOR FOSSA: The cerebellum and brainstem are intact. The 4th ventricle is midline. The cerebellopontine angle i s unremarkable. EXTRACRANIAL: The visualized portion of the orbits is intact. SKULL: The calvaria is intact. No evidence of skull fracture. CONCLUSION: Negative for an acute process. Pipo Hernandez MD FACR on August 08, 2017 at 15:51 Board Certified Radiologist. This report was verified electronically.
--- NOTE | 2017-08-08 16:10 | HHI.NPPN ---
Subjective History of Present Illness The patient is a 72-year-old man with a history a seizure disorder, schizoaffective disorder, chronic hyponatremia, BPH, achalasia and some dysphasia. He was in the psych unit and was on the toilet and passed out and transferred to medical unit. Nephrology was consulted for further work up on hyponatremia his sodium level is 126 today. His hyponatremia appears somewhat chronic as he has had a sodium level of 126 on 12/27. Additional Remarks Awake and alert. No complaints (Damaris Muniz) Objective Data Data Vital Signs Date Time Temp Pulse Resp B/P (MAP) Pulse Ox O2 Delivery O2 Flow Rate FiO2 08/08/17 12:00 96.1 82 17 129/87 (101) 94 08/08/17 08:00 95.7 95 17 123/78 (93) 96 08/08/17 04:15 74 08/08/17 04:00 96.5 81 18 98/58 (71) 92 08/08/17 00:00 97.1 90 18 118/74 (89) 98 08/07/17 23:45 90 08/07/17 20:13 89 08/07/17 20:00 97.4 81 18 120/73 (89) 98 (Damaris Muniz) -: 08/07/17 0533 08/08/17 0830 Physical Exam General Appearance: No Acute Distress, Comfortable (Damaris Muniz) Throat Throat Exam: Oral Mucosa [place] & Moist (Damaris Muniz) Pulmonary Resp Exam: Clear Bilaterally (Damaris Muniz) Cardiology CV Exam: Regular, Normal Sinus Rhythm (Damaris Muniz) Gastrointestinal/Abdomen GI Exam: Soft, Non-Tender, Bowel Sounds Present (Damaris Muniz) Genitourinary Exam: Clear Urine (Damaris Muniz) Integumentary Skin Exam: Warm, Dry, Intact (Damaris Muniz) Extremeties Extremities Exam: No Edema (Damaris Muniz) Neurologic Neuro Exam: Alert, Awake (Damaris Muniz) Assessment/Plan Problem List: (1) Hyponatremia ICD Codes: E87.1 - Hypo-osmolality and hyponatremia Plan: His hyponatremia appears somewhat chronic - ongoing hyponatremia and seen earlier in the month with Na 116 on 07/18 (treated with salt tablets/ hypertonic saline and fluid restriction at the time) 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 Sodium level at 130 today from 129 yesterday. Received dose of samsca yesterday. Also on NaCl TID Samsca 15 mg X 1 ordered Follow Na levels. Goal less than 6-8 meq correction/ 24 hours. 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 Sodium level at 130 today from 129 yesterday. Received dose of samsca yesterday. Also on NaCl TID Samsc[place] 15 mg X 1 ordered Follow Na levels. Goal less than 6-8 meq correction/ 24 hours. Patient seen and examined, agree with above. Na. is 130. (2) Schizoaffective disorder ICD Codes: F25.9 - Schizoaffective disorder, unspecified Status: Acute (3) BPH (benign prostatic hyperplasia) ICD Codes: N40.0 - Benign prostatic hyperplasia without lower urinary tract symptoms Plan: has asa (Ellen Palacio MD) Damaris Muniz Aug 08, 2017 16:10 Ellen Palacio MD Aug 08, 2017 19:33
[2017-08-08] MEDS ORDERED: TOLVAPTAN 15 MG TAB PO ONE (16:15)
--- NOTE | 2017-08-08 16:15 | HHI.GIFU ---
Subjective Remarks Eyes open, and tracks Answers some simple questions, otherwise blank stare Oral cavity dry, lips dry No obvious bleeding (Norma Victor) Objective Vitals I&O Vital Signs Date Time Temp Pulse Resp B/P (MAP) Pulse Ox O2 Delivery O2 Flow Rate FiO2 08/08/17 12:00 96.1 82 17 129/87 (101) 94 08/08/17 08:00 95.7 95 17 123/78 (93) 96 08/08/17 04:15 74 08/08/17 04:00 96.5 81 18 98/58 (71) 92 08/08/17 00:00 97.1 90 18 118/74 (89) 98 08/07/17 23:45 90 08/07/17 20:13 89 08/07/17 20:00 97.4 81 18 120/73 (89) 98 I/O 08/07/17 08/07/17 08/07/17 08/08/17 08/08/17 08/08/17 07:00 15:00 23:00 07:00 15:00 23:00 Intake Total 600 ml Output Total 3675 ml 700 ml 650 ml Balance -3675 ml -100 ml -650 ml Intake Oral 600 ml Output Urine Total 3675 ml 700 ml 650 ml # Bowel Movements 1 0 1 Laboratory Laboratory Tests Test 08/08/17 08:30 08/08/17 14:24 Blood Urea Nitrogen 21 Creatinine 1.10 Random Glucose 118 Calcium Level 10.4 Sodium Level 130 Potassium Level 3.9 Chloride Level 96 Carbon Dioxide Level 28.3 Anion Gap 6 Estimat Glomerular Filtration Rate 66 Blood Gas Puncture Site LT RADIAL Blood Gas Patient Temperature 98.6 Blood Gas HCO3 24 Blood Gas Base Excess 0.4 Blood Gas Oxygen Saturation 94 Arterial Blood pH 7.48 Arterial Blood Partial Pressure CO2 32 Arterial Blood Partial Pressure O2 75 Arterial Blood Oxygen Content 16.4 Arterial Blood Carboxyhemoglobin 1.1 Arterial Blood Methemoglobin 1.1 Blood Gas Hemoglobin 12.4 Oxygen Delivery Device ROOM AIR Blood Gas Inspired Oxygen 21 Date/Time Source Procedure Growth Status 08/04/17 11:10 Blood Peripheral Aerobic Blood Culture - Preliminary NO GROWTH IN 4 DAYS Resulted 08/04/17 11:10 Blood Peripheral Anaerobic Blood Culture - Preliminary NO GROWTH IN 4 DAYS Resulted Imaging Last Impressions Cervical Spine MRI 08/05/17 4615 Signed Impressions: Service Date/Time: Saturday, August 05, 2017 08:14 - CONCLUSION: Multilevel degenerative changes with disc/osteophyte complexes causing focal indentation of the thecal sac on the left side at C5-6 and C6-7. No evidence of cord compression. Multilevel bony neural foraminal stenosis as described above. Jc Watson MD Brain MRI 08/05/17 1458 Signed Impressions: Service Date/Time: Saturday, August 05, 2017 08:14 - CONCLUSION: 1. No acute intracranial abnormality identified. Juancarlos Hernandez MD Carotid Artery Ultrasound 08/04/17 1458 Signed Impressions: Service Date/Time: July 15:24 - CONCLUSION: No evidence of flow-limiting carotid stenosis. Tyler Arriola MD Chest X-Ray 08/03/17 1019 Signed Impressions: Service Date/Time: Thursday, August 03, 2017 10:40 - CONCLUSION: The lungs are clear. No evidence of pneumothorax. Jc Watson MD Head CT 08/03/17 0000 Signed Impressions: Service Date/Time: Thursday, August 03, 2017 12:13 - CONCLUSION: Normal examination for a patient of this age. No significant change has occurred. Dillon Rivera MD CT Angiography 08/03/17 0000 Signed Impressions: Service Date/Time: Thursday, August 03, 2017 20:32 - CONCLUSION: 1. No pulmonary embolus identified. 2. Postsurgical changes involving the esophagus. This is stable compared to the patient's previous stem. Juancarlos Hernandez MD Physical Exam HEENT: Normocephalic; atraumatic, PERRLA CHEST: Even/unlabored CARDIAC: RRR ABDOMEN: Soft, nondistended, nontender; bowel sounds active EXTREMITIES: No clubbing, cyanosis, or edema. SKIN: Pale , warm dry [employer]MP TR[employer] OPERATOR: Awake, shakes head yes or no but nonverbal today (Norma Victor) Assessment and Plan Plan Plan/ History - dysphagia - chronic, pt admits hx achalasia. c/o bolus sensation. CT chest indicated he has had gastric surgery, dilated esophagus with luminal debris. No aspiration seen Barium swallow 07/29/17 Enlarged dilated esophagus that does contain residual food. Surgical clips seen at the GE junction. Possible mass present at the GE junction. Patient needs to be upright to assist with esophageal emptying. Probable long- standing either achalasia or partial obstruction with surgical clips in the GE junction. There is the suggestion of the mass at the GE junction as well. Suggest viewing. Palliative care saw patient for consult. Currently patient has some confusion but is more cooperative today per the staff than before the last few days. Patient denies any nausea or vomiting. Continues with IV fluids at 84 cc an hour. 07/30/17 pt resting in bed. per RN does not want procedures and wants to . d/w brother Tito Catherine barium swallow findings, Anemia, initially seen on admission, now has hemoglobin of 13, normal range. No obvious bleeding [phone], He and other brother Tyler would like to see if pt can be made more stable from psych point of view so that he could make his own decision about pursuing EGD. (08/02) EGD --> Class D esoph for bowel esophagitis, biopsy. Near circumferential mass 3x3 cm in size, was found in the distal esophagus, multiple biopsies. Erythematous gastritis in the gastric antrum. Normal duodenal mucosa in the 2nd part of the duodenum., Hiatal hernia. Plan: Biopsies EGD pending Mechanical soft diet , monitor food intake, and continue to support and encourage calories I&O Bowel regimen with milk of magnesia or MiraLAX as needed EGD biopsies pending Diflucan for 7 days Monitor labs On a doctor for any obvious bleeding Okay from a GI standpoint for now Patient seen per myself and Dr. Durham, note is written on his behalf (Norma Victor) Plan patient was seen and examined, pt was lethargic when i saw him with mininmal response, I call the nurse who activated code on patint, no GI issues but i am not sure about his feeding after this. we will see how the code will do and we will see later for further recommendations (Marco Durham MD) Norma Victor Aug 08, 2017 16:14 Marco Durham MD Aug 08, 2017 23:03
--- NOTE | 2017-08-08 18:58 | HHI.PR ---
Subjective Remarks Deferred entry, patient seen earlier at 1440. Rapid response team activated by RN due to altered mental status. The patient was lethargic however arousable to chest rub. The patient denies chest pain, shortness of breath, denies headache. Objective Vitals Vital Signs Date Time Temp Pulse Resp B/P (MAP) Pulse Ox O2 Delivery O2 Flow Rate FiO2 08/08/17 16:00 98.7 97 17 112/71 (85) 96 08/08/17 12:00 96.1 82 17 129/87 (101) 94 08/08/17 08:00 95.7 95 17 123/78 (93) 96 08/08/17 04:15 74 08/08/17 04:00 96.5 81 18 98/58 (71) 92 08/08/17 00:00 97.1 90 18 118/74 (89) 98 08/07/17 23:45 90 08/07/17 20:13 89 08/07/17 20:00 97.4 81 18 120/73 (89) 98 I/O 08/07/17 08/07/17 08/07/17 08/08/17 08/08/17 08/08/17 07:00 15:00 23:00 07:00 15:00 23:00 Intake Total 600 ml 1164 ml Output Total 3675 ml 700 ml 650 ml 150 ml Balance -3675 ml -100 ml -650 ml 1014 ml Intake Oral 600 ml 1164 ml Output Urine Total 3675 ml 700 ml 650 ml 150 ml # Bowel Movements 1 0 1 0 Result Diagram: 08/07/17 0533 08/08/17 0830 Imaging Last Impressions Cervical Spine MRI [id number]/05/[id number] Signed Impressions: Service Date/Time: Saturday, August 05, 2017 08:14 - CONCLUSION: Multilevel degenerative changes with disc/osteophyte complexes causing focal indentation of the thecal sac on the left side at C5-6 and C6-7. No evidence of cord compression. Multilevel bony neural foraminal stenosis as described above. Jc Watson MD Brain MRI [id number]/05/[id number] Signed Impressions: Service Date/Time: Saturday, August 05, 2017 08:14 - CONCLUSION: 1. No acute intracranial abnormality identified. Juancarlos Hernandez MD Carotid Artery Ultrasound [id number]/[id number] Signed Impressions: Service Date/Time: July 15:24 - CONCLUSION: No evidence of flow-limiting carotid stenosis. Tyler Arriola MD Chest X-Ray 08/03/17 1019 Signed Impressions: Service Date/Time: Thursday, August 03, 2017 10:40 - CONCLUSION: The lungs are clear. No evidence of pneumothorax. Jc Watson MD Head CT 08/03/17 0000 Signed Impressions: Service Date/Time: Thursday, August 03, 2017 12:13 - CONCLUSION: Normal examination for a patient of this age. No significant change has occurred. Dillon Rivera MD CT Angiography 08/03/17 0000 Signed Impressions: Service Date/Time: Thursday, August 03, 2017 20:32 - CONCLUSION: 1. No pulmonary embolus identified. 2. Postsurgical changes involving the esophagus. This is stable compared to the patient's previous stem. Juancarlos Hernandez MD Objective Remarks GENERAL: Lethargic but arousable to chest rub., NAD SKIN: Warm and dry. HEAD: Normocephalic. EYES: No scleral icterus. No injection or drainage. NECK: Supple, trachea midline. No JVD or lymphadenopathy. CARDIOVASCULAR: Regular rate and rhythm without murmurs, gallops, or rubs. RESPIRATORY: Breath sounds equal bilaterally. No accessory muscle use. GASTROINTESTINAL: Abdomen soft, non-tender, nondistended. MUSCULOSKELETAL: No cyanosis, or edema. BACK: Nontender without obvious deformity. No CVA tenderness. on soft wrist restraints. Medications and IVs Current Medications Medications (Trade) Dose Ordered Sig/Kerry Route Start Time Stop Time Status Last Admin (NS Flush) 2 ml UNSCH PRN IV FLUSH 08/03/17 10:30 (NS Flush) 2 ml BID IV FLUSH 08/03/17 21:00 08/04/17 11:54 (Narcan Inj) 0.4 mg UNSCH PRN IV PUSH 08/03/17 10:45 (Tylenol) 650 mg Q4H PRN PO 08/03/17 11:15 (Synthroid) 75 mcg DAILY@0600 PO 08/04/17 06:00 08/08/17 06:13 (D50w (Vial) Inj) 50 ml UNSCH PRN IV PUSH 08/03/17 14:45 (Glucagon Inj) 1 mg UNSCH PRN OTHER 08/03/17 14:45 (Lovenox Inj) 40 mg Q24H SQ 08/03/17 15:00 08/08/17 14:10 (Haldol Inj) 2 mg Q8H PRN IM 08/04/17 11:30 08/06/17 16:01 (Diflucan) 100 mg DAILY PO 08/05/17 20:00 08/08/17 08:37 (Protonix) 40 mg Q12HR PO 08/05/17 21:00 08/08/17 08:37 (Sodium Chloride) 1 gm TID PO 08/06/17 09:00 08/08/17 16:57 (Megace Liq) 400 mg DAILY PO 08/07/17 14:00 08/08/17 08:38 (Milk Of Magnesia Liq) 30 ml DAILY PRN PO 08/07/17 14:30 (Miralax) 17 gm DAILY PO 08/08/17 09:00 A/P Problem List: (1) Encephalopathy acute ICD Code: G93.40 - Encephalopathy, unspecified Status: Acute Plan: Encephalopathy seems to be improving. Psychiatry consulted. Agree with psychiatry, this is likely metabolic encephalopathy. Medical workup ordered. CT of the head negative for acute process. MRI of the brain negative. Carotid ultrasounds are negative for stenosis. MARCELA screen negative. Encephalopathy is improving. Continue to monitor neurological status. EEG normal. 08/08 patient had episode of lethargy. Doubt organic cause, does not seem to be a syncopal episode. Will check a CT of the brain without IV contrast to rule out an intracranial process. Neurology has cleared the patient to be discharged. (2) Hyponatremia ICD Code: E87.1 - Hypo-osmolality and hyponatremia Plan: Suspect hyponatremia is playing a big component on the patient's delirium. Suspect SIADH. Discontinue IV normal saline and will start the patient on sodium chloride tablets. Nephrology consulted and following 08/06 sodium level is 123 today. Hyponatremia appears somewhat chronic and possibly secondary to SIADH from psychiatric/seizure medications. The patient had been on normal saline which have been stopped given worsening sodium levels. As per nephrology recommendations will attempt trial of Samsca 15 mg 1. Continue to follow-up serial sodium levels. Goal less than 6-8 meq correction/ 24 hours. 08/07 sodium is improving slowly, level 129 today. Continue management as per nephrology recommendations. Continue to monitor BMP. 08/08 sodium is slowly improving. 130 today. Continue to monitor BMP. Sodium has been slowly corrected without exceeding 6-8 mEq in 24 hours. (3) Syncope ICD Code: R55 - Syncope and collapse Plan: The patient sustained a witnessed syncopal episode on August 03, 2017. Thought to be secondary to poor oral intake and increased medications. Per medical records the patient received Seroquel, Benadryl, trazodone. Syncope treated with IV hydration and fluid bolus and resolved. The patient was kept on IV normal saline at 84 cc/h. Leukocytosis likely stress induced. No result. Urinalysis checked and negative. Chest x-ray with lungs clear. There is some degree of neurology consulted. Appreciate recommendations. The patient has some degree of orthostatic hypotension. Suspect syncopal episode secondary to orthostatic hypotension. 08/08 will consult cardiology as per neurology recommendations. (4) Dysphagia ICD Code: R13.10 - Dysphagia, unspecified Plan: Dysphagia secondary to achalasia. GI consulted. EGD 08/01/17 showed class D esophagitis. Near circumferential mass 3 x 3 cm in size found in the distal esophagus. Esophageal biopsies shows gastric mucosa with severe acute and chronic inflammation and acute esophagitis. Ana on EGD. On Diflucan. Patient needs to be upright to assist with esophageal emptying. Diflucan for 7 days. Mechanical soft diet 08/07 HIV antibody screen negative. (5) Ana esophagitis ICD Code: B37.81 - Candidal esophagitis Status: Acute Plan: As seen on esophageal biopsy. Continue Diflucan 100 mg p.o. daily. Check HIV screen - pending (6) Gastritis ICD Code: K29.70 - Gastritis, unspecified, without bleeding Plan: I will discontinue Pepcid discontinued on 08/05 and patient started on Protonix 40 minutes by mouth twice a day. (7) Weight loss ICD Code: R63.4 - Abnormal weight loss Status: Acute Plan: Likely secondary to decreased oral intake. I will start the patient on a appetite stimulant. I will start the patient on Megace. Dietitian consulted - Recommended Ensure Enlive - Continue. Assessment and Plan DVT prophylaxis: Continue Lovenox subcutaneously. Discharge Planning Pending clinical improvement and improvement of hyponatremia. Problem Qualifiers (1) Syncope: Qualified Codes: R55 - Syncope and collapse (2) Dysphagia: Qualified Codes: R13.10 - Dysphagia, unspecified (3) Gastritis: Qualified Codes: K29.00 - Acute gastritis without bleeding Elliot Ayala MD Aug 08, 2017 18:58
[2017-08-09] VITALS (9 sets, daily range): BP systolic 106–131; BP diastolic 65–84; PULSE 70–87; RESP 16–18; TEMP 96.9–98.1; O2SAT 96–97
[2017-08-09] MEDS: LEVOTHYROXINE SODIUM 75 MCG TAB PO SCH (05:11)
[2017-08-09] MEDS: SODIUM CHLORIDE 0.9% FLUSH 10 ML FLUSH IV FLUSH SCH ×2 (07:40→21:00)
[2017-08-09] MEDS: FLUCONAZOLE 100 MG TAB PO SCH (07:40)
[2017-08-09 07:41] LABS: HEMOGLOBIN 12.1 GM/DL (13.0-17.0); MEAN CELL VOLUME 84.6 FL (80.0-100.0); MEAN CORPUSCULAR HEMOGLOBIN 29.4 PG (27.0-34.0); MEAN CORPUSCULAR HGB CONC 34.7 % (32.0-36.0); MEAN PLATELET VOLUME 7.2 FL (7.0-11.0); PLATELET COUNT 319 TH/MM3 (150-450); RED BLOOD COUNT 4.13 MIL/MM3 (4.50-5.90); RED CELL DISTRIBUTION WIDTH 13.7 % (11.6-17.2); WHITE BLOOD COUNT 11.6 TH/MM3 (4.0-11.0)
[2017-08-09] MEDS: MEGESTROL ACETATE SUSP 400 MG/10 ML CUP PO SCH (07:41)
[2017-08-09] MEDS: PANTOPRAZOLE SOD 40 MG DELAYED RELEASE TAB PO SCH ×2 (07:41→21:40)
[2017-08-09] MEDS: POLYETHYLENE GLYCOL 17 GM PKG PO SCH (07:41)
[2017-08-09] MEDS: SODIUM CHLORIDE 1 GRAM TAB PO SCH ×3 (07:43→17:37)
[2017-08-09 08:02] LABS: BICARBONATE 25.4 MEQ/L (21.0-32.0); CALCIUM 9.8 MG/DL (8.5-10.1); CREATININE 1.21 MG/DL (0.60-1.30); MAGNESIUM 2.1 MG/DL (1.5-2.5)
--- NOTE | 2017-08-09 09:58 | RADRPT ---
EXAM DATE/TIME: 08/09/2017 09:29 [facility] COMPARISON: CT PULMONARY ANGIOGRAM, August 03, 2017, 20:32. CHEST SINGLE AP, August 03, 2017, 10:40. INDICATIONS : Leukocytosis MEDICAL HISTORY : Cerebrovascular disease. bipolar disorder, Asberger SURGICAL HISTORY : Appendectomy. stomach surgery, left arm surgery ENCOUNTER: Initial ACUITY: 4 - 6 days PAIN SCORE: Non-responsive. LOCATION: Bilateral chest FINDINGS: A single view of the chest demonstrates the lungs to be symmetrically aerated without evidence of mas s, infiltrate or effusion. Large fluid-filled structure along the right paramediastinal region corre sponds with dilated esophagus/achalasia. Heart normal in size. Skinfold on the right is seen. The car diomediastinal contours are unremarkable. Osseous structures are intact. CONCLUSION: 1. No evidence for pneumonia. 2. Large dilated esophagus/achalasia. Alessandro Sanford MD on August 09, 2017 at 9:55 Board Certified Radiologist. This report was verified electronically.
--- NOTE | 2017-08-09 10:16 | HHI.GIFU ---
Subjective Remarks Pt resting in bed in NAD. still lethargic, slow to answer. Breakfast tray appears untouched. Thinks "maybe" his swallowing is better. (Alise Merino) Objective Vitals I&O Vital Signs Date Time Temp Pulse Resp B/P (MAP) Pulse Ox O2 Delivery O2 Flow Rate FiO2 08/09/17 08:00 97.4 81 18 127/84 (98) 97 08/09/17 05:14 98.1 79 16 106/65 (79) 96 08/09/17 03:53 70 08/09/17 00:00 97.9 82 17 130/76 (94) 96 08/08/17 23:43 90 08/08/17 20:23 96.3 84 16 120/71 (87) 96 08/08/17 20:00 82 08/08/17 16:00 98.7 97 17 112/71 (85) 96 08/08/17 12:00 96.1 82 17 129/87 (101) 94 I/O 08/08/17 08/08/17 08/08/17 08/09/17 08/09/17 08/09/17 07:00 15:00 23:00 07:00 15:00 23:00 Intake Total 1164 ml 680 ml Output Total 650 ml 150 ml 600 ml Balance -650 ml 1014 ml 80 ml Intake Oral 1164 ml 680 ml Output Urine Total 650 ml 150 ml 600 ml # Bowel Movements 1 0 Laboratory Laboratory Tests Test 08/08/17 14:24 08/09/17 07:10 Blood Gas Puncture Site LT RADIAL Blood Gas Patient Temperature 98.6 Blood Gas HCO3 24 Blood Gas Base Excess 0.4 Blood Gas Oxygen Saturation 94 Arterial Blood pH 7.48 Arterial Blood Partial Pressure CO2 32 Arterial Blood Partial Pressure O2 75 Arterial Blood Oxygen Content 16.4 Arterial Blood Carboxyhemoglobin 1.1 Arterial Blood Methemoglobin 1.1 Blood Gas Hemoglobin 12.4 Oxygen Delivery Device ROOM AIR Blood Gas Inspired Oxygen 21 White Blood Count 11.6 Red Blood Count 4.13 Hemoglobin 12.1 Hematocrit 35.0 Mean Corpuscular Volume 84.6 Mean Corpuscular Hemoglobin 29.4 Mean Corpuscular Hemoglobin Concent 34.7 Red Cell Distribution Width 13.7 Platelet Count 319 Mean Platelet Volume 7.2 Blood Urea Nitrogen 30 Creatinine 1.21 Random Glucose 103 Calcium Level 9.8 Phosphorus Level 3.0 Magnesium Level 2.1 Sodium Level 132 Potassium Level 4.0 Chloride Level 98 Carbon Dioxide Level 25.4 Anion Gap 9 Estimat Glomerular Filtration Rate 59 Date/Time Source Procedure Growth Status 08/04/17 11:10 Blood Peripheral Aerobic Blood Culture - Preliminary NO GROWTH IN 4 DAYS Resulted 08/04/17 11:10 Blood Peripheral Anaerobic Blood Culture - Preliminary NO GROWTH IN 4 DAYS Resulted Imaging Last Impressions Chest X-Ray 08/09/17 0000 Signed Impressions: Service Date/Time: Wednesday, August 09, 2017 09:29 - CONCLUSION: 1. No evidence for pneumonia. 2. Large dilated esophagus/achalasia. Alessandro Sanford MD Head CT 08/08/17 0000 Signed Impressions: Service Date/Time: Tuesday, August 08, 2017 15:29 - CONCLUSION: Negative for an acute process. Pipo Hernandez MD FACR Cervical Spine MRI 08/05/17 1458 Signed Impressions: Service Date/Time: Saturday, August 05, 2017 08:14 - CONCLUSION: Multilevel degenerative changes with disc/osteophyte complexes causing focal indentation of the thecal sac on the left side at C5-6 and C6-7. No evidence of cord compression. Multilevel bony neural foraminal stenosis as described above. Jc Watson MD Brain MRI 08/05/17 145 Signed Impressions: Service Date/Time: Saturday, August 05, 2017 08:14 - CONCLUSION: 1. No acute intracranial abnormality identified. Juancarlos Hernandez MD Carotid Artery Ultrasound 08/04/17 1458 Signed Impressions: Service Date/Time: July 15:24 - CONCLUSION: No evidence of flow-limiting carotid stenosis. Tyler Arriola MD CT Angiography 08/03/17 0000 Signed Impressions: Service Date/Time: Thursday, August 03, 2017 20:32 - CONCLUSION: 1. No pulmonary embolus identified. 2. Postsurgical changes involving the esophagus. This is stable compared to the patient's previous stem. Juancarlos Hernandez MD Physical Exam GEN: cachectic HEENT: Normocephalic; atraumatic, PERRLA CHEST: Even/unlabored CARDIAC: RRR ABDOMEN: Soft, nondistended, nontender; bowel sounds active EXTREMITIES: No clubbing, cyanosis, or edema. SKIN: Pale , warm dry LEAF CONDITIONER: lethargic, slow to answer, answers appropriately (Alise MerinoP) Assessment and Plan Plan ASSESSMENT - dysphagia, GE junction mass- chronic, pt admits hx achalasia. c/o bolus sensation. CT chest indicated he has had gastric surgery, dilated esophagus with luminal debris. No aspiration seen. Barium swallow Enlarged dilated esophagus that does contain residual food. Surgical clips seen at the GE junction. Possible mass present at the GE junction. 07/30/17 pt resting in bed. per RN does not want procedures and wants to . d/w brother Tito Catherine barium swallow findings, Anemia, initially seen on admission, now has hemoglobin of 13, normal range. No obvious bleeding [phone], He and other brother Tyler would like to see if pt can be made more stable from psych point of view so that he could make his own decision about pursuing EGD. (08/02) EGD --> Class D esoph for bowel esophagitis, biopsy. Near circumferential mass 3x3 cm in size, was found in the distal esophagus, multiple biopsies. Erythematous gastritis in the gastric antrum. Normal duodenal mucosa in the 2nd part of the duodenum., Hiatal hernia. (08/03) --> Pt had witnessed syncopal episode in the shower, Laine called, now in ICU. Spoke with RN, she states he has not had MAP <65. ECG was done which showed sinus bradycardia. No reports of GI bleeding or emesis. Syncope possibly related to dehydration vs medication side effect. Now with IVF. H/H stable. Unsure of PO intake since recently transferred. EGD biopsy still pending (08/04) --> Pt with poor PO intake, spoke with RN Jazmin who states he had Jell-o for lunch, no breakfast. Unsure about meals yesterday. EGD biopsy still pending. H/H improved today, no transfusion. 08/08/17 patient was seen and examined, pt was lethargic when i saw him with mininmal response, I call the nurse who activated code on patint, no GI issues but i am not sure about his feeding after this. we will see how the code will do and we will see later for further recommendations 08/09/17 biopsy c/w marianela, on diflucan. pt lethargic, had rapid response called yesterday. head CT was ok. HH relatively stable PLAN - continue diflucan - bowel regimen - monitor labs - soft diet - consider adding ensure - supportive care - not much more to add from GI standpoint. will sign off. please reconsult if needed pt seen by myself and Dr Durham and this note is written on his behalf (Alise Merino) Plan Agree with above-noted, we will treat with Diflucan for Marianela esophagitis, diet as tolerated, further plan per primary team, we will sign off at this time (Marco Durham MD) Alise Merino Aug 09, 2017 10:16 Marco Durham MD Aug 09, 2017 14:53
--- NOTE | 2017-08-09 12:55 | PD.CARD.PN ---
Subjective Subjective Remarks No events overnight Patient slow to respond, poor insight into history and current state Objective Medications Current Medications Medications (Trade) Dose Ordered Sig/Kerry Route Start Time Stop Time Status Last Admin (NS Flush) 2 ml UNSCH PRN IV FLUSH 08/03/17 10:30 (NS Flush) 2 ml BID IV FLUSH 08/03/17 21:00 08/04/17 11:54 (Narcan Inj) 0.4 mg UNSCH PRN IV PUSH 08/03/17 10:45 (Tylenol) 650 mg Q4H PRN PO 08/03/17 11:15 (Synthroid) 75 mcg DAILY@0600 PO 08/04/17 06:00 08/09/17 05:11 (D50w (Vial) Inj) 50 ml UNSCH PRN IV PUSH 08/03/17 14:45 (Glucagon Inj) 1 mg UNSCH PRN OTHER 08/03/17 14:45 (Lovenox Inj) 40 mg Q24H SQ 08/03/17 15:00 08/08/17 14:10 (Haldol Inj) 2 mg Q8H PRN IM 08/04/17 11:30 08/06/17 16:01 (Diflucan) 100 mg DAILY PO 08/05/17 20:00 08/09/17 07:40 (Protonix) 40 mg Q12HR PO 08/05/17 21:00 08/09/17 07:41 (Sodium Chloride) 1 gm TID PO 08/06/17 09:00 08/09/17 12:48 (Megace Liq) 400 mg DAILY PO 08/07/17 14:00 08/09/17 07:41 (Milk Of Magnesia Liq) 30 ml DAILY PRN PO 08/07/17 14:30 (Miralax) 17 gm DAILY PO 08/08/17 09:00 Vital Signs / I&O Vital Signs Date Time Temp Pulse Resp B/P (MAP) Pulse Ox O2 Delivery O2 Flow Rate FiO2 08/09/17 08:00 97.4 81 18 127/84 (98) 97 08/09/17 05:14 98.1 79 16 106/65 (79) 96 08/09/17 03:53 70 08/09/17 00:00 97.9 82 17 130/76 (94) 96 08/08/17 23:43 90 08/08/17 20:23 96.3 84 16 120/71 (87) 96 08/08/17 20:00 82 08/08/17 16:00 98.7 97 17 112/71 (85) 96 I/O 08/08/17 08/08/17 08/08/17 08/09/17 08/09/17 08/09/17 07:00 15:00 23:00 07:00 15:00 23:00 Intake Total 1164 ml 680 ml Output Total 650 ml 150 ml 600 ml Balance -650 ml 1014 ml 80 ml Intake Oral 1164 ml 680 ml Output Urine Total 650 ml 150 ml 600 ml # Bowel Movements 1 0 Physical Exam GENERAL: NAD SKIN: Warm and dry. HEAD: Atraumatic. Normocephalic. EYES: Pupils equal and round. No scleral icterus. No injection or drainage. ENT: No nasal bleeding or discharge. Mucous membranes pink and moist. NECK: Trachea midline. No JVD. CARDIOVASCULAR: Regular rate and rhythm. RESPIRATORY: No accessory muscle use. Clear to auscultation. Breath sounds equal bilaterally. GASTROINTESTINAL: Abdomen soft, non-tender, nondistended. Hepatic and splenic margins not palpable. MUSCULOSKELETAL: Extremities without clubbing, cyanosis, or edema. No obvious deformities. NEUROLOGICAL: Awake. No obvious focal deficits Laboratory Laboratory Tests Test 08/08/17 14:24 08/09/17 07:10 Blood Gas Puncture Site LT RADIAL Blood Gas Patient Temperature 98.6 Blood Gas HCO3 24 mmol/L Blood Gas Base Excess 0.4 mmol/L Blood Gas Oxygen Saturation 94 % Arterial Blood pH 7.48 Arterial Blood Partial Pressure CO2 32 mmHg Arterial Blood Partial Pressure O2 75 mmHg Arterial Blood Oxygen Content 16.4 Vol % Arterial Blood Carboxyhemoglobin 1.1 % Arterial Blood Methemoglobin 1.1 % Blood Gas Hemoglobin 12.4 G/DL Oxygen Delivery Device ROOM AIR Blood Gas Inspired Oxygen 21 % White Blood Count 11.6 TH/MM3 Red Blood Count 4.13 MIL/MM3 Hemoglobin 12.1 GM/DL Hematocrit 35.0 % Mean Corpuscular Volume 84.6 FL Mean Corpuscular Hemoglobin 29.4 PG Mean Corpuscular Hemoglobin Concent 34.7 % Red Cell Distribution Width 13.7 % Platelet Count 319 TH/MM3 Mean Platelet Volume 7.2 FL Blood Urea Nitrogen 30 MG/DL Creatinine 1.21 MG/DL Random Glucose 103 MG/DL Calcium Level 9.8 MG/DL Phosphorus Level 3.0 MG/DL Magnesium Level 2.1 MG/DL Sodium Level 132 MEQ/L Potassium Level 4.0 MEQ/L Chloride Level 98 MEQ/L Carbon Dioxide Level 25.4 MEQ/L Anion Gap 9 MEQ/L Estimat Glomerular Filtration Rate 59 ML/MIN Imaging Last 24 hours Impressions Chest X-Ray 08/09/17 0000 Signed Impressions: Service Date/Time: Wednesday, August 09, 2017 09:29 - CONCLUSION: 1. No evidence for pneumonia. 2. Large dilated esophagus/achalasia. Alessandro Sanford MD Assessment and Plan Problem List: (1) Syncope ICD Codes: R55 - Syncope and collapse (2) Weight loss ICD Codes: R63.4 - Abnormal weight loss Status: Acute (3) Encephalopathy acute ICD Codes: G93.40 - Encephalopathy, unspecified Status: Acute (4) Hyponatremia ICD Codes: E87.1 - Hypo-osmolality and hyponatremia (5) Gastritis ICD Codes: K29.70 - Gastritis, unspecified, without bleeding (6) Dysphagia ICD Codes: R13.10 - Dysphagia, unspecified (7) Schizoaffective disorder ICD Codes: F25.9 - Schizoaffective disorder, unspecified Status: Acute Assessment and Plan 1) Questionable syncopal episode More likely hypotension/vasovagal 2) EF 60%, no significant valvular disease 3) No arrhythmias noted 4) He can follow up in the office for further recommendations, although it is difficult as he is unable to tell me any symptoms 5) No further cardiovascular workup Problem Qualifiers (1) Syncope: Qualified Codes: R55 - Syncope and collapse (2) Gastritis: Qualified Codes: K29.00 - Acute gastritis without bleeding (3) Dysphagia: Qualified Codes: R13.10 - Dysphagia, unspecified Hubert Espinoza DO Aug 09, 2017 12:55
[2017-08-09] MEDS: ENOXAPARIN SODIUM 40 MG/0.4 ML SYRINGE SQ SCH (14:27)
--- NOTE | 2017-08-09 15:34 | HHI.NPPN ---
Subjective History of Present Illness The patient is a 72-year-old man with a history a seizure disorder, schizoaffective disorder, chronic hyponatremia, BPH, achalasia and some dysphasia. He was in the psych unit and was on the toilet and passed out and transferred to medical unit. Nephrology was consulted for further work up on hyponatremia his sodium level is 126 today. His hyponatremia appears somewhat chronic as he has had a sodium level of 126 on 12/27. Additional Remarks Awake and alert. No acute findings. Sodium level at 132 (Damaris Muniz) Review of Systems Respiratory Respiratory Remarks No SOB (Damaris Muniz) Cardiovascular Cardiac Remarks No CP (Damaris Muniz) Objective Data Data Vital Signs Date Time Temp Pulse Resp B/P (MAP) Pulse Ox O2 Delivery O2 Flow Rate FiO2 08/09/17 08:00 97.4 81 18 127/84 (98) 97 08/09/17 05:14 98.1 79 16 106/65 (79) 96 08/09/17 03:53 70 08/09/17 00:00 97.9 82 17 130/76 (94) 96 08/08/17 23:43 90 08/08/17 20:23 96.3 84 16 120/71 (87) 96 08/08/17 20:00 82 08/08/17 16:00 98.7 97 17 112/71 (85) 96 (Damaris Muniz) -: 08/09/17 0710 08/09/17 0710 Physical Exam General Appearance: No Acute Distress, Comfortable (Damaris Muniz) Throat Throat Exam: Oral Mucosa Loa & Moist (Damaris Muniz) Pulmonary Resp Exam: Clear Bilaterally (Damaris Muniz) Cardiology CV Exam: Regular, Normal Sinus Rhythm (Damaris Muniz) Gastrointestinal/Abdomen GI Exam: Soft, Non-Tender, Bowel Sounds Present (Damaris Muniz) Genitourinary Exam: Clear Urine (Damaris Muniz) Integumentary Skin Exam: Warm, Dry, Intact (Damaris Muniz) Extremeties Extremities Exam: No Edema (Damaris Muniz) Neurologic Neuro Exam: Alert, Awake (Damaris Muniz) Assessment/Plan Problem List: (1) Hyponatremia ICD Codes: E87.1 - Hypo-osmolality and hyponatremia Plan: His hyponatremia appears somewhat chronic - ongoing hyponatremia and seen earlier in the month with Na 116 on 07/18 (treated with salt tablets/ hypertonic saline and fluid restriction at the time) 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 Sodium level at 132 today continue NaCl TID Follow Na levels. Goal less than 6-8 meq correction/ 24 hours. 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 Sodium level at 132 today continue NaCl TID Follow Na levels. Goal less than 6-8 meq correction/ 24 hours. Patient seen and examined, agree with above. Na. is better 132, CT Brain result noted. (2) Schizoaffective disorder ICD Codes: F25.9 - Schizoaffective disorder, unspecified Status: Acute (3) BPH (benign prostatic hyperplasia) ICD Codes: N40.0 - Benign prostatic hyperplasia without lower urinary tract symptoms Plan: has asa (Ellen Palacio MD) Damaris Muniz Aug 09, 2017 15:34 Ellen Palacio MD Aug 09, 2017 19:14
--- NOTE | 2017-08-09 15:48 | HHI.PR ---
Subjective Remarks PAtient states feels better than yesterday. Afebrile. WBC trending up. Objective Vitals Vital Signs Date Time Temp Pulse Resp B/P (MAP) Pulse Ox O2 Delivery O2 Flow Rate FiO2 08/09/17 08:00 97.4 81 18 127/84 (98) 97 08/09/17 05:14 98.1 79 16 106/65 (79) 96 08/09/17 03:53 70 08/09/17 00:00 97.9 82 17 130/76 (94) 96 08/08/17 23:43 90 08/08/17 20:23 96.3 84 16 120/71 (87) 96 08/08/17 20:00 82 08/08/17 16:00 98.7 97 17 112/71 (85) 96 I/O 08/08/17 08/08/17 08/08/17 08/09/17 08/09/17 08/09/17 07:00 15:00 23:00 07:00 15:00 23:00 Intake Total 1164 ml 680 ml Output Total 650 ml 150 ml 600 ml Balance -650 ml 1014 ml 80 ml Intake Oral 1164 ml 680 ml Output Urine Total 650 ml 150 ml 600 ml # Bowel Movements 1 0 Result Diagram: 08/09/17 0710 08/09/17 0710 Imaging Last Impressions Chest X-Ray 08/09/17 0000 Signed Impressions: Service Date/Time: Wednesday, August 09, 2017 09:29 - CONCLUSION: 1. No evidence for pneumonia. 2. Large dilated esophagus/achalasia. Alessandro Sanford MD Head CT 08/08/17 0000 Signed Impressions: Service Date/Time: Tuesday, August 08, 2017 15:29 - CONCLUSION: Negative for an acute process. Pipo Hernandez MD FACR Cervical Spine MRI 08/05/17 0958 Signed Impressions: Service Date/Time: Saturday, August 05, 2017 08:14 - CONCLUSION: Multilevel degenerative changes with disc/osteophyte complexes causing focal indentation of the thecal sac on the left side at C5-6 and C6-7. No evidence of cord compression. Multilevel bony neural foraminal stenosis as described above. Jc Watson MD Brain MRI 08/05/17 4044 Signed Impressions: Service Date/Time: Saturday, August 05, 2017 08:14 - CONCLUSION: 1. No acute intracranial abnormality identified. Juancarlos Hernandez MD Carotid Artery Ultrasound 08/04/17 1458 Signed Impressions: Service Date/Time: July 15:24 - CONCLUSION: No evidence of flow-limiting carotid stenosis. Tyler Arriola MD CT Angiography 08/03/17 0000 Signed Impressions: Service Date/Time: Thursday, August 03, 2017 20:32 - CONCLUSION: 1. No pulmonary embolus identified. 2. Postsurgical changes involving the esophagus. This is stable compared to the patient's previous stem. Juancarlos Hernandez MD Objective Remarks GENERAL: Lethargic but arousable to chest rub., NAD SKIN: Warm and dry. HEAD: Normocephalic. EYES: No scleral icterus. No injection or drainage. NECK: Supple, trachea midline. No JVD or lymphadenopathy. CARDIOVASCULAR: Regular rate and rhythm without murmurs, gallops, or rubs. RESPIRATORY: Breath sounds equal bilaterally. No accessory muscle use. GASTROINTESTINAL: Abdomen soft, non-tender, nondistended. MUSCULOSKELETAL: No cyanosis, or edema. BACK: Nontender without obvious deformity. No CVA tenderness. on soft wrist restraints. Medications and IVs Current Medications Medications (Trade) Dose Ordered Sig/Kerry Route Start Time Stop Time Status Last Admin (NS Flush) 2 ml UNSCH PRN IV FLUSH 08/03/17 10:30 (NS Flush) 2 ml BID IV FLUSH 08/03/17 21:00 08/04/17 11:54 (Narcan Inj) 0.4 mg UNSCH PRN IV PUSH 08/03/17 10:45 (Tylenol) 650 mg Q4H PRN PO 08/03/17 11:15 (Synthroid) 75 mcg DAILY@0600 PO 08/04/17 06:00 08/09/17 05:11 (D50w (Vial) Inj) 50 ml UNSCH PRN IV PUSH 08/03/17 14:45 (Glucagon Inj) 1 mg UNSCH PRN OTHER 08/03/17 14:45 (Lovenox Inj) 40 mg Q24H SQ 08/03/17 15:00 08/09/17 14:27 (Haldol Inj) 2 mg Q8H PRN IM 08/04/17 11:30 2/24/18 16:01 (Diflucan) 100 mg DAILY PO 08/05/17 20:00 08/09/17 07:40 (Protonix) 40 mg Q12HR PO 08/05/17 21:00 08/09/17 07:41 (Sodium Chloride) 1 gm TID PO 08/06/17 09:00 08/09/17 12:48 (Megace Liq) 400 mg DAILY PO 08/07/17 14:00 08/09/17 07:41 (Milk Of Magnesia Liq) 30 ml DAILY PRN PO 08/07/17 14:30 (Miralax) 17 gm DAILY PO 08/08/17 09:00 A/P Problem List: (1) Encephalopathy acute ICD Code: G93.40 - Encephalopathy, unspecified Status: Acute Plan: Encephalopathy seems to be improving. Psychiatry consulted. Agree with psychiatry, this is likely metabolic encephalopathy. Medical workup ordered. CT of the head negative for acute process. MRI of the brain negative. Carotid ultrasounds are negative for stenosis. MARCELA screen negative. Encephalopathy is improving. Continue to monitor neurological status. EEG normal. 08/08 patient had episode of lethargy. Doubt organic cause, does not seem to be a syncopal episode. Will check a CT of the brain without IV contrast to rule out an intracranial process. Neurology has cleared the patient to be discharged. 08/09 WBC trending up. PAtient afebrile however due to ams yesterday will check cxr and urinalysis. (2) Hyponatremia ICD Code: E87.1 - Hypo-osmolality and hyponatremia Plan: Suspect hyponatremia is playing a big component on the patient's delirium. Suspect SIADH. Discontinue IV normal saline and will start the patient on sodium chloride tablets. Nephrology consulted and following 08/06 sodium level is 123 today. Hyponatremia appears somewhat chronic and possibly secondary to SIADH from psychiatric/seizure medications. The patient had been on normal saline which have been stopped given worsening sodium levels. As per nephrology recommendations will attempt trial of Samsca 15 mg 1. Continue to follow-up serial sodium levels. Goal less than 6-8 meq correction/ 24 hours. 08/07 sodium is improving slowly, level 129 today. Continue management as per nephrology recommendations. Continue to monitor BMP. 08/08 sodium is slowly improving. 130 today. Continue to monitor BMP. Sodium has been slowly corrected without exceeding 6-8 mEq in 24 hours. 08/09 Na 132 - fu nephrology (3) Syncope ICD Code: R55 - Syncope and collapse Plan: The patient sustained a witnessed syncopal episode on August 03, 2017. Thought to be secondary to poor oral intake and increased medications. Per medical records the patient received Seroquel, Benadryl, trazodone. Syncope treated with IV hydration and fluid bolus and resolved. The patient was kept on IV normal saline at 84 cc/h. Leukocytosis likely stress induced. No result. Urinalysis checked and negative. Chest x-ray with lungs clear. There is some degree of neurology consulted. Appreciate recommendations. The patient has some degree of orthostatic hypotension. Suspect syncopal episode secondary to orthostatic hypotension. 08/08 will consult cardiology as per neurology recommendations. 08/09 appreciate cardiology recommendations. Syncope likely vasovagal/due to hypotension. (4) Dysphagia ICD Code: R13.10 - Dysphagia, unspecified Plan: Dysphagia secondary to achalasia. GI consulted. EGD 08/01/17 showed class D esophagitis. Near circumferential mass 3 x 3 cm in size found in the distal esophagus. Esophageal biopsies shows gastric mucosa with severe acute and chronic inflammation and acute esophagitis. Ana on EGD. On Diflucan. Patient needs to be upright to assist with esophageal emptying. Diflucan for 7 days. Mechanical soft diet 08/07 HIV antibody screen negative. (5) Ana esophagitis ICD Code: B37.81 - Candidal esophagitis Status: Acute Plan: As seen on esophageal biopsy. Continue Diflucan 100 mg p.o. daily. Check HIV screen - negative (6) Gastritis ICD Code: K29.70 - Gastritis, unspecified, without bleeding Plan: I will discontinue Pepcid discontinued on 08/05 and patient started on Protonix 40 minutes by mouth twice a day. (7) Weight loss ICD Code: R63.4 - Abnormal weight loss Status: Acute Plan: Likely secondary to decreased oral intake. I will start the patient on a appetite stimulant. I will start the patient on Megace. Dietitian consulted - Recommended Ensure Enlive - Continue. Assessment and Plan DVT prophylaxis: Continue Lovenox subcutaneously. Discharge Planning Pending clinical improvement and improvement of hyponatremia. Problem Qualifiers (1) Syncope: Qualified Codes: R55 - Syncope and collapse (2) Dysphagia: Qualified Codes: R13.10 - Dysphagia, unspecified (3) Gastritis: Qualified Codes: K29.00 - Acute gastritis without bleeding Elliot Ayala MD Aug 09, 2017 15:48
[2017-08-10] VITALS (7 sets, daily range): BP systolic 101–130; BP diastolic 61–80; PULSE 68–89; RESP 14–17; TEMP 96.2–98.4; O2SAT 96–98
[2017-08-10] MEDS: LEVOTHYROXINE SODIUM 75 MCG TAB PO SCH (06:00)
[2017-08-10] MEDS: MEGESTROL ACETATE SUSP 400 MG/10 ML CUP PO SCH (08:33)
[2017-08-10] MEDS: POLYETHYLENE GLYCOL 17 GM PKG PO SCH (08:34)
[2017-08-10] MEDS: PANTOPRAZOLE SOD 40 MG DELAYED RELEASE TAB PO SCH ×2 (08:34→20:39)
[2017-08-10] MEDS: SODIUM CHLORIDE 1 GRAM TAB PO SCH ×3 (08:34→17:32)
[2017-08-10] MEDS: FLUCONAZOLE 100 MG TAB PO SCH (08:34)
[2017-08-10] MEDS: SODIUM CHLORIDE 0.9% FLUSH 10 ML FLUSH IV FLUSH SCH ×4 (09:00→21:06)
[2017-08-10 09:10] LABS: AUTOMATED NEUTROPHIL # 9.5 TH/MM3 (1.8-7.7); BASOPHIL % 0.3 % (0.0-2.0); HEMATOCRIT 34.3 % (39.0-51.0); HEMOGLOBIN 11.9 GM/DL (13.0-17.0); LYMPHOCYTE # 1.4 TH/MM3 (1.0-4.8); MEAN CORPUSCULAR HEMOGLOBIN 29.5 PG (27.0-34.0); MEAN CORPUSCULAR HGB CONC 34.7 % (32.0-36.0); MEAN PLATELET VOLUME 7.2 FL (7.0-11.0); MONO % 6.5 % (0.0-8.0); MONOCYTE # 0.8 TH/MM3 (0-0.9); NEUT % 81.2 % (16.0-70.0); PLATELET COUNT 331 TH/MM3 (150-450); RED BLOOD COUNT 4.04 MIL/MM3 (4.50-5.90); RED CELL DISTRIBUTION WIDTH 13.6 % (11.6-17.2); WHITE BLOOD COUNT 11.7 TH/MM3 (4.0-11.0)
[2017-08-10 09:29] LABS: ALBUMIN 3.8 GM/DL (3.4-5.0); AST (GOT) 20 U/L (15-37); BICARBONATE 24.7 MEQ/L (21.0-32.0); BLOOD UREA NITROGEN 28 MG/DL (7-18); CALCIUM 10.3 MG/DL (8.5-10.1); CHLORIDE 101 MEQ/L (98-107); CREATININE 1.01 MG/DL (0.60-1.30); GLOMERULAR FILTRATION RATE 73 ML/MIN (>89); GLUCOSE,RANDOM 98 MG/DL (74-106); SODIUM (NA) 134 MEQ/L (136-145)
[2017-08-10 09:31] LABS: ALT (GPT) 32 U/L (12-78)
[2017-08-10 09:34] LABS: ALKALINE PHOSPHATASE 73 U/L (45-117); TOTAL BILIRUBIN ADULT 0.8 MG/DL (0.2-1.0); TOTAL PROTEIN 7.1 GM/DL (6.4-8.2)
--- NOTE | 2017-08-10 09:39 | HHI.NPPN ---
Subjective History of Present Illness The patient is a 72-year-old man with a history a seizure disorder, schizoaffective disorder, chronic hyponatremia, BPH, achalasia and some dysphasia. He was in the psych unit and was on the toilet and passed out and transferred to medical unit. Nephrology was consulted for further work up on hyponatremia his sodium level is 126 today. His hyponatremia appears somewhat chronic as he has had a sodium level of 126 on 12/27. Additional Remarks Awake and alert. Sodium level has improved at 134 (Damaris Muniz) Review of Systems Respiratory Respiratory Remarks No SOB (Damaris Muniz) Cardiovascular Cardiac Remarks No CP (Damaris Muniz) Objective Data Data Vital Signs Date Time Temp Pulse Resp B/P (MAP) Pulse Ox O2 Delivery O2 Flow Rate FiO2 08/10/17 08:00 96.5 70 15 130/79 (96) 96 08/10/17 04:43 97.0 70 16 119/67 (84) 96 08/10/17 00:00 96.3 89 16 129/75 (93) 98 08/09/17 23:58 70 08/09/17 20:26 96.9 87 16 129/82 (98) 97 08/09/17 20:11 75 08/09/17 16:00 97.6 86 18 128/77 (94) 96 08/09/17 12:00 97.4 85 16 131/79 (96) 96 (Damaris Muniz) -: 08/10/17 0832 08/10/17 0832 Physical Exam General Appearance: No Acute Distress, Comfortable (Damaris Muniz) Throat Throat Exam: Oral Mucosa Peetz & Moist (Damaris Muniz) Pulmonary Resp Exam: Clear Bilaterally (Damaris Muniz) Cardiology CV Exam: Regular, Normal Sinus Rhythm (Damaris Muniz) Gastrointestinal/Abdomen GI Exam: Soft, Non-Tender, Bowel Sounds Present (Damaris Muniz) Genitourinary Exam: Clear Urine (Damaris Muniz) Integumentary Skin Exam: Warm, Dry, Intact (Damaris Muniz) Extremeties Extremities Exam: No Edema (Damaris Muniz) Neurologic Neuro Exam: Alert, Awake (Damaris Muniz) Assessment/Plan Problem List: (1) Hyponatremia ICD Codes: E87.1 - Hypo-osmolality and hyponatremia Plan: His hyponatremia appears somewhat chronic - ongoing hyponatremia and seen earlier in the month with Na 116 on 07/18 (treated with salt tablets/ hypertonic saline and fluid restriction at the time) 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 Sodium level continues to improve at 134 today continue NaCl TID Follow Na levels. Goal less than 6-8 meq correction/ 24 hours. 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 Sodium level continues to improve at 134 today continue NaCl TID Follow Na levels. Goal less than 6-8 meq correction/ 24 hours. WBC at 11.7 today, UA pending Patient seen and examined, agree with above. Na. is 134, and improving. (2) Schizoaffective disorder ICD Codes: F25.9 - Schizoaffective disorder, unspecified Status: Acute (3) BPH (benign prostatic hyperplasia) ICD Codes: N40.0 - Benign prostatic hyperplasia without lower urinary tract symptoms (Ellen Palacio MD) Damaris Muniz Aug 10, 2017 09:39 Ellen Palacio MD Aug 10, 2017 19:29
[2017-08-10 11:14] LABS: BILIRUBIN, URINE NEG (NEG); BLOOD, URINE NEG (NEG); GLUCOSE,URINE NEG (NEG); KETONE, URINE 10 mg/dL (NEG); MUCUS URINE FEW /lpf (OCC); NITRITE,URINE NEG (NEG); PH, URINE 5.5 (5.0-8.5); SQUAMOUS EPITHELIAL CELL URINE <1 /hpf (0-5); URINE COLOR YELLOW (YELLW/STRAW); URINE LEUKOCYTE ESTERASE TRACE (NEG)
[2017-08-10] MEDS: ENOXAPARIN SODIUM 40 MG/0.4 ML SYRINGE SQ SCH (15:06)
--- NOTE | 2017-08-10 15:42 | PD.CARD.PN ---
Subjective Subjective Remarks No events overnight Patient slow to respond, poor insight into history and current state Telemetry showing no arrhythmias Objective Medications Current Medications Medications (Trade) Dose Ordered Sig/Kerry Route Start Time Stop Time Status Last Admin (NS Flush) 2 ml UNSCH PRN IV FLUSH 08/03/17 10:30 (NS Flush) 2 ml BID IV FLUSH 08/03/17 21:00 08/04/17 11:54 (Narcan Inj) 0.4 mg UNSCH PRN IV PUSH 08/03/17 10:45 (Tylenol) 650 mg Q4H PRN PO 08/03/17 11:15 (Synthroid) 75 mcg DAILY@0600 PO 08/04/17 06:00 08/10/17 06:00 (D50w (Vial) Inj) 50 ml UNSCH PRN IV PUSH 08/03/17 14:45 (Glucagon Inj) 1 mg UNSCH PRN OTHER 08/03/17 14:45 (Lovenox Inj) 40 mg Q24H SQ 08/03/17 15:00 08/10/17 15:06 (Diflucan) 100 mg DAILY PO 08/05/17 20:00 08/10/17 08:34 (Protonix) 40 mg Q12HR PO 08/05/17 21:00 08/10/17 08:34 (Sodium Chloride) 1 gm TID PO 08/06/17 09:00 08/10/17 13:06 (Megace Liq) 400 mg DAILY PO 08/07/17 14:00 08/10/17 08:33 (Milk Of Magnesia Liq) 30 ml DAILY PRN PO 08/07/17 14:30 (Miralax) 17 gm DAILY PO 08/08/17 09:00 08/10/17 08:34 Vital Signs / I&O Vital Signs Date Time Temp Pulse Resp B/P (MAP) Pulse Ox O2 Delivery O2 Flow Rate FiO2 08/10/17 12:00 96.2 69 14 101/61 (74) 97 08/10/17 08:20 68 08/10/17 08:00 68 08/10/17 08:00 96.5 70 15 130/79 (96) 96 08/10/17 04:43 97.0 70 16 119/67 (84) 96 08/10/17 00:00 96.3 89 16 129/75 (93) 98 08/09/17 23:58 70 08/09/17 20:26 96.9 87 16 129/82 (98) 97 08/09/17 20:11 75 08/09/17 16:00 97.6 86 18 128/77 (94) 96 I/O 08/09/17 08/09/17 08/09/17 08/10/17 08/10/17 08/10/17 07:00 15:00 23:00 07:00 15:00 23:00 Intake Total 680 ml 620 ml 360 ml Output Total 600 ml Balance 80 ml 620 ml 360 ml Intake Oral 680 ml 620 ml 360 ml Output Urine Total 600 ml # Voids 4 2 # Bowel Movements 1 Physical Exam GENERAL: NAD SKIN: Warm and dry. HEAD: Atraumatic. Normocephalic. EYES: Pupils equal and round. No scleral icterus. No injection or drainage. ENT: No nasal bleeding or discharge. Mucous membranes pink and moist. NECK: Trachea midline. No JVD. CARDIOVASCULAR: Regular rate and rhythm. RESPIRATORY: No accessory muscle use. Clear to auscultation. Breath sounds equal bilaterally. GASTROINTESTINAL: Abdomen soft, non-tender, nondistended. Hepatic and splenic margins not palpable. MUSCULOSKELETAL: Extremities without clubbing, cyanosis, or edema. No obvious deformities. NEUROLOGICAL: Awake. No obvious focal deficits Laboratory Laboratory Tests Test 08/10/17 08:32 08/10/17 11:00 White Blood Count 11.7 TH/MM3 Red Blood Count 4.04 MIL/MM3 Hemoglobin 11.9 GM/DL Hematocrit 34.3 % Mean Corpuscular Volume 85.0 FL Mean Corpuscular Hemoglobin 29.5 PG Mean Corpuscular Hemoglobin Concent 34.7 % Red Cell Distribution Width 13.6 % Platelet Count 331 TH/MM3 Mean Platelet Volume 7.2 FL Neutrophils (%) (Auto) 81.2 % Lymphocytes (%) (Auto) 12.0 % Monocytes (%) (Auto) 6.5 % Eosinophils (%) (Auto) 0.0 % Basophils (%) (Auto) 0.3 % Neutrophils # (Auto) 9.5 TH/MM3 Lymphocytes # (Auto) 1.4 TH/MM3 Monocytes # (Auto) 0.8 TH/MM3 Eosinophils # (Auto) 0.0 TH/MM3 Basophils # (Auto) 0.0 TH/MM3 CBC Comment DIFF FINAL Differential Comment Blood Urea Nitrogen 28 MG/DL Creatinine 1.01 MG/DL Random Glucose 98 MG/DL Total Protein 7.1 GM/DL Albumin 3.8 GM/DL Calcium Level 10.3 MG/DL Alkaline Phosphatase 73 U/L Aspartate Amino Transf (AST/SGOT) 20 U/L Alanine Aminotransferase (ALT/SGPT) 32 U/L Total Bilirubin 0.8 MG/DL Sodium Level 134 MEQ/L Potassium Level 3.9 MEQ/L Chloride Level 101 MEQ/L Carbon Dioxide Level 24.7 MEQ/L Anion Gap 8 MEQ/L Estimat Glomerular Filtration Rate 73 ML/MIN Urine Color YELLOW Urine Turbidity CLEAR Urine pH 5.5 Urine Specific [place] 1.026 Urine Protein TRACE mg/dL Urine Glucose (UA) NEG mg/dL Urine Ketones 10 mg/dL Urine Occult Blood NEG Urine Nitrite NEG Urine Bilirubin NEG Urine Urobilinogen 2.0 MG/DL Urine Leukocyte Esterase TRACE Urine RBC 2 /hpf Urine WBC 5 /hpf Urine Squamous Epithelial Cells <1 /hpf Urine Mucus FEW /lpf Microscopic Urinalysis Comment CATH-CULT NOT IND Assessment and Plan Problem List: (1) Syncope ICD Codes: R55 - Syncope and collapse (2) Weight loss ICD Codes: R63.4 - Abnormal weight loss Status: Acute (3) Encephalopathy acute ICD Codes: G93.40 - Encephalopathy, unspecified Status: Acute (4) Hyponatremia ICD Codes: E87.1 - Hypo-osmolality and hyponatremia (5) Gastritis ICD Codes: K29.70 - Gastritis, unspecified, without bleeding (6) Dysphagia ICD Codes: R13.10 - Dysphagia, unspecified (7) Schizoaffective disorder ICD Codes: F25.9 - Schizoaffective disorder, unspecified Status: Acute Assessment and Plan 1) Questionable syncopal episode More likely hypotension/vasovagal 2) EF 60%, no significant valvular disease 3) No arrhythmias noted 4) He can follow up in the office for further recommendations, although it is difficult as he is unable to tell me any symptoms 5) No further cardiovascular workup Problem Qualifiers (1) Syncope: Qualified Codes: R55 - Syncope and collapse (2) Gastritis: Qualified Codes: K29.00 - Acute gastritis without bleeding (3) Dysphagia: Qualified Codes: R13.10 - Dysphagia, unspecified Hubert Espinoza DO Aug 10, 2017 15:42
--- NOTE | 2017-08-10 16:37 | HHI.PR ---
Subjective Remarks The patient denies any complaints. A febrile. WBC slightly elevated at 1.7 however no fevers or chills. Denies cough Denies diarrhea. Objective Vitals Vital Signs Date Time Temp Pulse Resp B/P (MAP) Pulse Ox O2 Delivery O2 Flow Rate FiO2 08/10/17 12:00 96.2 69 14 101/61 (74) 97 08/10/17 08:20 68 08/10/17 08:00 68 08/10/17 08:00 96.5 70 15 130/79 (96) 96 08/10/17 04:43 97.0 70 16 119/67 (84) 96 08/10/17 00:00 96.3 89 16 129/75 (93) 98 08/09/17 23:58 70 08/09/17 20:26 96.9 87 16 129/82 (98) 97 08/09/17 20:11 75 I/O 08/09/17 08/09/17 08/09/17 08/10/17 08/10/17 08/10/17 06:59 14:59 22:59 06:59 14:59 22:59 Intake Total 680 ml 620 ml 360 ml Output Total 600 ml Balance 80 ml 620 ml 360 ml Intake Oral 680 ml 620 ml 360 ml Output Urine Total 600 ml # Voids 4 2 # Bowel Movements 1 Result Diagram: 08/10/17 0832 08/10/17 0832 Imaging Last 72 hours Impressions Chest X-Ray 08/09/17 0000 Signed Impressions: Service Date/Time: Wednesday, August 09, 2017 09:29 - CONCLUSION: 1. No evidence for pneumonia. 2. Large dilated esophagus/achalasia. Alessandro Sanford MD Head CT 08/08/17 0000 Signed Impressions: Service Date/Time: Tuesday, August 08, 2017 15:29 - CONCLUSION: Negative for an acute process. Pipo Hernandez MD FACR Objective Remarks GENERAL: Lethargic but arousable to chest rub., NAD SKIN: Warm and dry. HEAD: Normocephalic. EYES: No scleral icterus. No injection or drainage. NECK: Supple, trachea midline. No JVD or lymphadenopathy. CARDIOVASCULAR: Regular rate and rhythm without murmurs, gallops, or rubs. RESPIRATORY: Breath sounds equal bilaterally. No accessory muscle use. GASTROINTESTINAL: Abdomen soft, non-tender, nondistended. MUSCULOSKELETAL: No cyanosis, or edema. BACK: Nontender without obvious deformity. No CVA tenderness. on soft wrist restraints. Medications and IVs Current Medications Medications (Trade) Dose Ordered Sig/Kerry Route Start Time Stop Time Status Last Admin (NS Flush) 2 ml UNSCH PRN IV FLUSH 08/03/17 10:30 (NS Flush) 2 ml BID IV FLUSH 08/03/17 21:00 08/04/17 11:54 (Narcan Inj) 0.4 mg UNSCH PRN IV PUSH 08/03/17 10:45 (Tylenol) 650 mg Q4H PRN PO 08/03/17 11:15 (Synthroid) 75 mcg DAILY@0600 PO 08/04/17 06:00 08/10/17 06:00 (D50w (Vial) Inj) 50 ml UNSCH PRN IV PUSH 08/03/17 14:45 (Glucagon Inj) 1 mg UNSCH PRN OTHER 08/03/17 14:45 (Lovenox Inj) 40 mg Q24H SQ 08/03/17 15:00 08/10/17 15:06 (Diflucan) 100 mg DAILY PO 08/05/17 20:00 08/10/17 08:34 (Protonix) 40 mg Q12HR PO 08/05/17 21:00 08/10/17 08:34 (Sodium Chloride) 1 gm TID PO 08/06/17 09:00 08/10/17 13:06 (Megace Liq) 400 mg DAILY PO 08/07/17 14:00 08/10/17 08:33 (Milk Of Magnesia Liq) 30 ml DAILY PRN PO 08/07/17 14:30 (Miralax) 17 gm DAILY PO 08/08/17 09:00 08/10/17 08:34 A/P Problem List: (1) Encephalopathy acute ICD Code: G93.40 - Encephalopathy, unspecified Status: Acute (2) Hyponatremia ICD Code: E87.1 - Hypo-osmolality and hyponatremia (3) Syncope ICD Code: R55 - Syncope and collapse (4) Dysphagia ICD Code: R13.10 - Dysphagia, unspecified (5) Ana esophagitis ICD Code: B37.81 - Candidal esophagitis Status: Acute (6) Gastritis ICD Code: K29.70 - Gastritis, unspecified, without bleeding (7) Weight loss ICD Code: R63.4 - Abnormal weight loss Status: Acute (8) Schizoaffective disorder ICD Code: F25.9 - Schizoaffective disorder, unspecified Status: Acute Plan: Upon review of records the patient had been seen on 08/04/17 by psychiatry. Patient at the time delirious thought to be secondary to underlying medical conditions. Patient was placed on Haldol for agitation, however the patient has not been administer Haldol in several days and is very calm. Discussed the case with Dr. Nuno who will see the patient in a.m. to see what medications the patient could be placed on. (9) Seizure disorder ICD Code: G40.909 - Epilepsy, unspecified, not intractable, without status epilepticus Plan: Upon review of records the patient was on Tegretol on 07/18/17 200 mg at bedtime however he does not look taking that. Due to the patient's altered mental status and syncopal episode the patient had an EEG which was normal. Neurology consulted. No anti-compulsive medication was recommended for the patient. Assessment and Plan (1) Encephalopathy acute Plan: Encephalopathy seems to be improving. Psychiatry consulted. Agree with psychiatry, this is likely metabolic encephalopathy. Medical workup ordered. CT of the head negative for acute process. MRI of the brain negative. Carotid ultrasounds are negative for stenosis. MARCELA screen negative. Encephalopathy is improving. Continue to monitor neurological status. EEG normal. 08/08 patient had episode of lethargy. Doubt organic cause, does not seem to be a syncopal episode. Will check a CT of the brain without IV contrast to rule out an intracranial process. Neurology has cleared the patient to be discharged. 08/09 WBC trending up. PAtient afebrile however due to ams yesterday will check cxr and urinalysis. (2) Hyponatremia Plan: Suspect hyponatremia is playing a big component on the patient's delirium. Suspect SIADH. Discontinue IV normal saline and will start the patient on sodium chloride tablets. Nephrology consulted and following 08/06 sodium level is 123 today. Hyponatremia appears somewhat chronic and possibly secondary to SIADH from psychiatric/seizure medications. The patient had been on normal saline which have been stopped given worsening sodium levels. As per nephrology recommendations will attempt trial of Samsca 15 mg 1. Continue to follow-up serial sodium levels. Goal less than 6-8 meq correction/ 24 hours. 08/07 sodium is improving slowly, level 129 today. Continue management as per nephrology recommendations. Continue to monitor BMP. 08/08 sodium is slowly improving. 130 today. Continue to monitor BMP. Sodium has been slowly corrected without exceeding 6-8 mEq in 24 hours. 08/09 Na 132 - fu nephrology 08/10 Na 134 (3) Syncope ICD Code: R55 - Syncope and collapse Plan: The patient sustained a witnessed syncopal episode on August 03, 2017. Thought to be secondary to poor oral intake and increased medications. Per medical records the patient received Seroquel, Benadryl, trazodone. Syncope treated with IV hydration and fluid bolus and resolved. The patient was kept on IV normal saline at 84 cc/h. Leukocytosis likely stress induced. No result. Urinalysis checked and negative. Chest x-ray with lungs clear. There is some degree of neurology consulted. Appreciate recommendations. The patient has some degree of orthostatic hypotension. Suspect syncopal episode secondary to orthostatic hypotension. 08/08 will consult cardiology as per neurology recommendations. 08/09 appreciate cardiology recommendations. Syncope likely vasovagal/due to hypotension. (4) Dysphagia ICD Code: R13.10 - Dysphagia, unspecified Plan: Dysphagia secondary to achalasia. GI consulted. EGD 08/01/17 showed class D esophagitis. Near circumferential mass 3 x 3 cm in size found in the distal esophagus. Esophageal biopsies shows gastric mucosa with severe acute and chronic inflammation and acute esophagitis. Ana on EGD. On Diflucan. Patient needs to be upright to assist with esophageal emptying. Diflucan for 7 days. Mechanical soft diet 08/07 HIV antibody screen negative. (5) Ana esophagitis ICD Code: B37.81 - Candidal esophagitis Status: Acute Plan: As seen on esophageal biopsy. Continue Diflucan 100 mg p.o. daily. Check HIV screen - negative (6) Gastritis ICD Code: K29.70 - Gastritis, unspecified, without bleeding Plan: I will discontinue Pepcid discontinued on 08/05 and patient started on Protonix 40 minutes by mouth twice a day. (7) Weight loss ICD Code: R63.4 - Abnormal weight loss Status: Acute Plan: Likely secondary to decreased oral intake. I will start the patient on a appetite stimulant. I will start the patient on Megace. Dietitian consulted - Recommended Ensure Enlive - Continue. DVT prophylaxis: Continue Lovenox subcutaneously. Discharge Planning Pending clinical improvement and improvement of hyponatremia. Problem Qualifiers (1) Syncope: Qualified Codes: R55 - Syncope and collapse (2) Dysphagia: Qualified Codes: R13.10 - Dysphagia, unspecified (3) Gastritis: Qualified Codes: K29.00 - Acute gastritis without bleeding Elliot Ayala MD Aug 10, 2017 16:37
[2017-08-11] VITALS (7 sets, daily range): BP systolic 113–130; BP diastolic 62–77; PULSE 70–103; RESP 17–22; TEMP 96.9–98.7; O2SAT 95–99
[2017-08-11] MEDS: LEVOTHYROXINE SODIUM 75 MCG TAB PO SCH (05:58)
[2017-08-11] MEDS: SODIUM CHLORIDE 1 GRAM TAB PO SCH ×3 (07:48→16:55)
[2017-08-11] MEDS: PANTOPRAZOLE SOD 40 MG DELAYED RELEASE TAB PO SCH ×2 (07:48→19:56)
[2017-08-11] MEDS: POLYETHYLENE GLYCOL 17 GM PKG PO SCH (07:48)
[2017-08-11] MEDS: FLUCONAZOLE 100 MG TAB PO SCH (07:48)
[2017-08-11] MEDS: MEGESTROL ACETATE SUSP 400 MG/10 ML CUP PO SCH (07:48)
--- NOTE | 2017-08-11 10:17 | HHI.NPPN ---
Subjective History of Present Illness The patient is a 72-year-old man with a history a seizure disorder, schizoaffective disorder, chronic hyponatremia, BPH, achalasia and some dysphasia. He was in the psych unit and was on the toilet and passed out and transferred to medical unit. Nephrology was consulted for further work up on hyponatremia his sodium level is 126 today. His hyponatremia appears somewhat chronic as he has had a sodium level of 126 on 12/27. Additional Remarks Awake and alert. No acute problems (Damaris Muniz) Review of Systems Respiratory Respiratory Remarks No SOB (Damaris Muniz) Cardiovascular Cardiac Remarks No CP (Damaris Muniz) Objective Data Data 08/11/17 08/12/17 19:00 07:00 Intake Total 240 ml Balance 240 ml Intake Oral 240 ml Vital Signs Date Time Temp Pulse Resp B/P (MAP) Pulse Ox O2 Delivery O2 Flow Rate FiO2 08/11/17 08:00 96.9 71 18 113/70 (84) 99 08/11/17 04:00 98.7 72 17 130/76 (94) 98 08/11/17 00:00 98.5 70 17 126/77 (93) 98 08/10/17 20:00 98.4 78 17 121/80 (94) 98 08/10/17 16:00 97.1 82 16 121/76 (91) 98 08/10/17 12:00 96.2 69 14 101/61 (74) 97 (Damaris Muniz) -: 08/10/17 0832 08/10/17 0832 Physical Exam General Appearance: No Acute Distress, Comfortable (Damaris Muniz) Throat Throat Exam: Oral Mucosa [place] & Moist (Damaris Muniz) Pulmonary Resp Exam: Clear Bilaterally (Damaris Muniz) Cardiology CV Exam: Regular, Normal Sinus Rhythm (Damaris Muniz) Gastrointestinal/Abdomen GI Exam: Soft, Non-Tender, Bowel Sounds Present (Damaris Muniz) Genitourinary Exam: Clear Urine (Damaris Muniz) Integumentary Skin Exam: Warm, Dry, Intact (Damaris Muniz) Extremeties Extremities Exam: No Edema (Damaris Muniz) Neurologic Neuro Exam: Alert, Awake (Damaris Muniz) Assessment/Plan Problem List: (1) Hyponatremia ICD Codes: E87.1 - Hypo-osmolality and hyponatremia Plan: His hyponatremia appears somewhat chronic - ongoing hyponatremia and seen earlier in the month with Na 116 on 07/18 (treated with salt tablets/ hypertonic saline and fluid restriction at the time) 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 Sodium level continues to improve at 134 yesterday continue NaCl TID Follow Na levels. 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 Sodium level continues to improve at 134 yesterday continue NaCl TID Follow Na levels. Patient seen and examined, agree with above. Now eating better, Na. improving, Creatinine is also better. (2) Schizoaffective disorder ICD Codes: F25.9 - Schizoaffective disorder, unspecified Status: Acute (3) BPH (benign prostatic hyperplasia) ICD Codes: N40.0 - Benign prostatic hyperplasia without lower urinary tract symptoms (Ellen Palacio MD) Damaris Muniz Aug 11, 2017 10:17 Ellen Palacio MD Aug 11, 2017 21:33
--- NOTE | 2017-08-11 11:31 | PD.CARD.PN ---
Subjective Subjective Remarks No events overnight Patient slow to respond, poor insight into history and current state Telemetry showing no arrhythmias Objective Medications Current Medications Medications (Trade) Dose Ordered Sig/Kerry Route Start Time Stop Time Status Last Admin (NS Flush) 2 ml UNSCH PRN IV FLUSH 08/03/17 10:30 (NS Flush) 2 ml BID IV FLUSH 08/03/17 21:00 08/04/17 11:54 (Narcan Inj) 0.4 mg UNSCH PRN IV PUSH 08/03/17 10:45 (Tylenol) 650 mg Q4H PRN PO 08/03/17 11:15 (Synthroid) 75 mcg DAILY@0600 PO 08/04/17 06:00 08/11/17 05:58 (D50w (Vial) Inj) 50 ml UNSCH PRN IV PUSH 08/03/17 14:45 (Glucagon Inj) 1 mg UNSCH PRN OTHER 08/03/17 14:45 (Lovenox Inj) 40 mg Q24H SQ 08/03/17 15:00 08/10/17 15:06 (Diflucan) 100 mg DAILY PO 08/05/17 20:00 08/11/17 07:48 (Protonix) 40 mg Q12HR PO 08/05/17 21:00 08/11/17 07:48 (Sodium Chloride) 1 gm TID PO 08/06/17 09:00 08/11/17 07:48 (Megace Liq) 400 mg DAILY PO 08/07/17 14:00 08/11/17 07:48 (Milk Of Magnesia Liq) 30 ml DAILY PRN PO 08/07/17 14:30 (Miralax) 17 gm DAILY PO 08/08/17 09:00 08/11/17 07:48 Vital Signs / I&O Vital Signs Date Time Temp Pulse Resp B/P (MAP) Pulse Ox O2 Delivery O2 Flow Rate FiO2 08/11/17 08:00 96.9 71 18 113/70 (84) 99 08/11/17 04:00 98.7 72 17 130/76 (94) 98 08/11/17 00:00 98.5 70 17 126/77 (93) 98 08/10/17 20:00 98.4 78 17 121/80 (94) 98 08/10/17 16:00 97.1 82 16 121/76 (91) 98 08/10/17 12:00 96.2 69 14 101/61 (74) 97 I/O 08/10/17 08/10/17 08/10/17 08/11/17 08/11/17 08/11/17 07:00 15:00 23:00 07:00 15:00 23:00 Intake Total 360 ml 320 ml 480 ml 240 ml Output Total 200 ml Balance 360 ml 320 ml 280 ml 240 ml Intake Oral 360 ml 320 ml 480 ml 240 ml Output Urine Total 200 ml # Voids 2 1 2 # Bowel Movements 0 Physical Exam GENERAL: NAD SKIN: Warm and dry. HEAD: Atraumatic. Normocephalic. EYES: Pupils equal and round. No scleral icterus. No injection or drainage. ENT: No nasal bleeding or discharge. Mucous membranes pink and moist. NECK: Trachea midline. No JVD. CARDIOVASCULAR: Regular rate and rhythm. RESPIRATORY: No accessory muscle use. Clear to auscultation. Breath sounds equal bilaterally. GASTROINTESTINAL: Abdomen soft, non-tender, nondistended. Hepatic and splenic margins not palpable. MUSCULOSKELETAL: Extremities without clubbing, cyanosis, or edema. No obvious deformities. NEUROLOGICAL: Awake. No obvious focal deficits Assessment and Plan Problem List: (1) Syncope ICD Codes: R55 - Syncope and collapse (2) Weight loss ICD Codes: R63.4 - Abnormal weight loss Status: Acute (3) Encephalopathy acute ICD Codes: G93.40 - Encephalopathy, unspecified Status: Acute (4) Hyponatremia ICD Codes: E87.1 - Hypo-osmolality and hyponatremia (5) Gastritis ICD Codes: K29.70 - Gastritis, unspecified, without bleeding (6) Dysphagia ICD Codes: R13.10 - Dysphagia, unspecified (7) Schizoaffective disorder ICD Codes: F25.9 - Schizoaffective disorder, unspecified Status: Acute Assessment and Plan 1) Questionable syncopal episode More likely hypotension/vasovagal 2) EF 60%, no significant valvular disease 3) No arrhythmias noted 4) He can follow up in the office for further recommendations, although it is difficult as he is unable to tell me any symptoms 5) Physical therapy working with him 6) No further cardiovascular work up, will see PRN, call with questions Problem Qualifiers (1) Syncope: Qualified Codes: R55 - Syncope and collapse (2) Gastritis: Qualified Codes: K29.00 - Acute gastritis without bleeding (3) Dysphagia: Qualified Codes: R13.10 - Dysphagia, unspecified Hubert Espinoza DO Aug 11, 2017 11:31
--- NOTE | 2017-08-11 13:23 | HHI.PYPN ---
Subjective Remarks Patient was seen today for psychiatric reevaluation. Chart was reviewed. Patient was discussed with Dr. Alexander. On psychiatric evaluation patient is alert, he is partially oriented in time and place, reports good mood, denies depressive symptoms, he denies anxiety, he denies suicidal and homicidal ideation, he denies visual and auditory hallucinations. No agitation, no aggressive behavior, no paranoia, no hyperactivity, no loosening of associations are present at this moment. The patient is taking his medications , no significant side effects reported. Review of Systems Except as stated in HPI: all other systems reviewed are Neg Mental Status Examination Appearance: Appropriate, Disheveled Consciousness: Alert, Obtunded Orientation: x4 Motor Activity: Abnormal gait Speech: Slow, Incoherent Language: Adequate Fund of Knowledge: Inadequate Attention and Concentration: Inadequate Memory: Impaired Mood: Appropriate Affect: Appropriate Thought Process & Associations: Intact Thought Content: Appropriate Hallucination Type: None Delusion Type: Bizarre Suicidal Ideation: No Suicidal Plan: No Suicidal Intention: No Homicidal Ideation: No Homicidal Plan: No Homicidal Intention: No Insight: Fair Judgment: Impulsive Results Labs Date/Time Source Procedure Growth Status 08/04/17 11:10 Blood Peripheral Aerobic Blood Culture - Final NO GROWTH IN 5 DAYS Complete 08/04/17 11:10 Blood Peripheral Anaerobic Blood Culture - Final NO GROWTH IN 5 DAYS Complete Vitals/IOs Vital Signs Date Time Temp Pulse Resp B/P (MAP) Pulse Ox O2 Delivery O2 Flow Rate FiO2 08/11/17 12:00 98.1 74 19 119/62 (81) 99 Intake and Output 08/11/17 08/11/17 08/12/17 08:00 16:00 00:00 Intake Total 720 ml Output Total 200 ml Balance 520 ml Assessment & Plan Problem List: (1) Delirium due to another medical condition ICD Codes: F05 - Delirium due to known physiological condition (2) Hyponatremia ICD Codes: E87.1 - Hypo-osmolality and hyponatremia (3) Bipolar disorder ICD Codes: F31.9 - Bipolar disorder, unspecified Status: Chronic Assessment & Plan: Patient is now much improved, a little bit confused, but partially oriented in time and place. He denies depression, denies anxiety, denies brittany, and psychosis. He denies suicidal or homicidal ideation, he denies visual and auditory hallucinations. We will start the patient Risperdal 0.5 mg twice a day with psychosis and mood. He does not meet criteria for involuntary psychiatric admission. He is psychiatrically cleared to continue medical care. Assessment & Plan Estimated LOS: days Justification for Cont. Inpt. He does not meet criteria for involuntary psychiatric admission. Aidan Ohara MD Aug 11, 2017 13:23
[2017-08-11] MEDS ORDERED: DIFL100T PO (13:55)
[2017-08-11] MEDS ORDERED: PANT40TA3 PO (13:55)
[2017-08-11] MEDS ORDERED: RISP0.5T25 PO (13:55)
[2017-08-11] MEDS ORDERED: Megestrol Liq PO (13:55)
--- NOTE | 2017-08-11 13:56 | HHI.DCPOC ---
Discharge Care Plan Diagnosis: (1) Encephalopathy acute (2) Ana esophagitis (3) Weight loss (4) Syncope (5) Hyponatremia (6) Gastritis (7) Dysphagia (8) BPH (benign prostatic hyperplasia) (9) Schizoaffective disorder (10) Hypothyroid Goals to Promote Your Health * To prevent worsening of your condition and complications * To maintain your health at the optimal level Directions to Meet Your Goals Take your medications as prescribed Follow your dietary instruction Follow activity as directed Keep your appointments as scheduled Take your immunizations and boosters as scheduled If your symptoms worsen call your PCP, if no PCP go to Urgent Care Center or Emergency Room Smoking is Dangerous to Your Health. Avoid second hand smoke Call the 24-hour hour crisis hotline for domestic abuse at Elliot Ayala MD Aug 11, 2017 13:56
--- NOTE | 2017-08-11 14:05 | HHI.DS ---
Discharge Summary Admission Date Aug 03, 2017 at 10:12 Discharge Date: Aug 11, 2017 Admitting Diagnosis (1) Encephalopathy acute ICD Code: G93.40 - Encephalopathy, unspecified Diagnosis: Principal Status: Resolved (2) Hyponatremia ICD Code: E87.1 - Hypo-osmolality and hyponatremia Diagnosis: Principal Status: Resolved (3) Syncope ICD Code: R55 - Syncope and collapse Diagnosis: Principal Status: Resolved (4) Dysphagia ICD Code: R13.10 - Dysphagia, unspecified Diagnosis: Principal Status: Resolved (5) Ana esophagitis ICD Code: B37.81 - Candidal esophagitis Diagnosis: Principal Status: Resolved (6) Gastritis ICD Code: K29.70 - Gastritis, unspecified, without bleeding Diagnosis: Principal Status: Acute (7) Weight loss ICD Code: R63.4 - Abnormal weight loss Status: Acute (8) Schizoaffective disorder ICD Code: F25.9 - Schizoaffective disorder, unspecified Diagnosis: Principal Status: Chronic (9) Seizure disorder ICD Code: G40.909 - Epilepsy, unspecified, not intractable, without status epilepticus Diagnosis: Principal Status: Chronic Procedures None Brief History - From Admission History from review of medical records, patient himself, nursing staff. Patient is known to me from yesterday's rounds. Patient was admitted and at the psychiatrist's care in medical psychiatry unit. He was being managed for dysphagia, hyponatremia, schizoaffective disorder, poor oral intake. This morning, I have rounded on the patient and psychiatry unit. He was pretty much the same as what he was yesterday, sleeping most suturing the interview, only answered yes or no questions by nodding his head. He did not have his breakfast yet at the time of my exam. I then discussed with patient's nurse about his case and I was reassured that he was much more awake alert yesterday evening and was even agitated overnight for which his Seroquel was increased last night from 50 to 100 mg. I then went on to round another patient in the same unit and within about 30 minutes or so nursing staff came to get me immediately because patient was unresponsive. Patient was sitting on the toilet at that time. His nurse was at the bedside. Patient was noted to be wet, and responsive with eyes almost rolling. His nurse reported that she was given him a wet towel bath and he immediately became unresponsive, noncommunicative, and pale. Which is why she called out for me. We then placed him back on his bed and on questioning, patient was not really given any answers. Rapid response was called immediately. Vitals at the time where saturation of 95% on 2 L nasal cannular, blood pressure around 105/60, heart rate of 80. His blood sugar was 110 or so. However patient was just not looking well, and not really responsive. Therefore transferred patient to ICU stat for possible worsening/hemodynamic instability. CBC/BMP: 08/10/17 0832 08/10/17 0832 Significant Findings Laboratory Tests Test 08/08/17 14:24 08/09/17 07:10 08/10/17 08:32 08/10/17 11:00 Arterial Blood pH 7.48 (7.380-7.420) Arterial Blood Partial Pressure CO2 32 mmHg (38-42) White Blood Count 11.6 TH/MM3 (4.0-11.0) 11.7 TH/MM3 (4.0-11.0) Red Blood Count 4.13 MIL/MM3 (4.50-5.90) 4.04 MIL/MM3 (4.50-5.90) Hemoglobin 12.1 GM/DL (13.0-17.0) 11.9 GM/DL (13.0-17.0) Hematocrit 35.0 % (39.0-51.0) 34.3 % (39.0-51.0) Blood Urea Nitrogen 30 MG/DL (7-18) 28 MG/DL (7-18) Sodium Level 132 MEQ/L (136-145) 134 MEQ/L (136-145) Estimat Glomerular Filtration Rate 59 ML/MIN (>89) 73 ML/MIN (>89) Neutrophils (%) (Auto) 81.2 % (16.0-70.0) Neutrophils # (Auto) 9.5 TH/MM3 (1.8-7.7) Calcium Level 10.3 MG/DL (8.5-10.1) Urine Ketones 10 mg/dL (NEG) Urine Leukocyte Esterase TRACE (NEG) Urine Mucus FEW /lpf (OCC) Imaging Last Impressions Chest X-Ray 08/09/17 0000 Signed Impressions: Service Date/Time: Wednesday, August 09, 2017 09:29 - CONCLUSION: 1. No evidence for pneumonia. 2. Large dilated esophagus/achalasia. Alessandro Sanford MD Head CT 08/08/17 0000 Signed Impressions: Service Date/Time: Tuesday, August 08, 2017 15:29 - CONCLUSION: Negative for an acute process. Pipo Hernandez MD FACR Cervical Spine MRI 08/05/17 145 Signed Impressions: Service Date/Time: Saturday, August 05, 2017 08:14 - CONCLUSION: Multilevel degenerative changes with disc/osteophyte complexes causing focal indentation of the thecal sac on the left side at C5-6 and C6-7. No evidence of cord compression. Multilevel bony neural foraminal stenosis as described above. Jc Watson MD Brain MRI 08/05/17 1458 Signed Impressions: Service Date/Time: Saturday, August 05, 2017 08:14 - CONCLUSION: 1. No acute intracranial abnormality identified. Juancarlos Hernandez MD Carotid Artery Ultrasound 08/04/17 1458 Signed Impressions: Service Date/Time: July 15:24 - CONCLUSION: No evidence of flow-limiting carotid stenosis. Tyler Arriola MD CT Angiography 08/03/17 0000 Signed Impressions: Service Date/Time: Thursday, August 03, 2017 20:32 - CONCLUSION: 1. No pulmonary embolus identified. 2. Postsurgical changes involving the esophagus. This is stable compared to the patient's previous stem. Juancarlos Hernandez MD PE at Discharge GENERAL: Awake and alert, NAD SKIN: Warm and dry. HEAD: Normocephalic. EYES: No scleral icterus. No injection or drainage. NECK: Supple, trachea midline. No JVD or lymphadenopathy. CARDIOVASCULAR: Regular rate and rhythm without murmurs, gallops, or rubs. RESPIRATORY: Breath sounds equal bilaterally. No accessory muscle use. GASTROINTESTINAL: Abdomen soft, non-tender, nondistended. MUSCULOSKELETAL: No cyanosis, or edema. BACK: Nontender without obvious deformity. No CVA tenderness. Pt update on day of discharge The patient is afebrile, stable vital signs. Denies chest pain or shortness of breath. Hospital Course (1) Encephalopathy acute Encephalopathy seems to be improving. Psychiatry consulted. Agree with psychiatry, this is likely metabolic encephalopathy. Medical workup ordered. CT of the head negative for acute process. MRI of the brain negative. Carotid ultrasounds are negative for stenosis. MARCELA screen negative.EEG normal. The patient had an episode of lethargy on August 08, 2017. CT of the brain was ordered and ruled out acute intracranial process. Neurology cleared the patient to be discharged. The patient's mental status improved and the patient became very calm and cooperative. WBC trended up, however patient afebrile. Regardless a chest x-ray was obtained which was negative and a urinalysis was obtained which was negative as well. (2) Hyponatremia Suspect hyponatremia is playing a big component on the patient's delirium. Suspect SIADH. The patient was initially treated with IV normal saline which worsened sodium count. This was discontinued. This nephrology has been consulted and following. The patient was started on Samsca after which the patient's sodium improved. Last sodium prior to discharge on 08/10 was 134. Psychiatry was consulted for recommendations on antipsychotic medication that would control the patient's behavior and mood however have less effect on sodium. 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 (3) Syncope \The patient sustained a witnessed syncopal episode on August 03, 2017. Thought to be secondary to poor oral intake and increased medications. Per medical records the patient received Seroquel, Benadryl, trazodone. Syncope treated with IV hydration and fluid bolus and resolved. The patient was kept on IV normal saline at 84 cc/h. Leukocytosis likely stress induced. No result. Urinalysis checked and negative. Chest x-ray with lungs clear. Neurology consulted. Appreciate recommendations. The patient has some degree of orthostatic hypotension. Suspect syncopal episode secondary to orthostatic hypotension. 08/08 will consult cardiology as per neurology recommendations. 08/09 appreciate cardiology recommendations. Syncope likely vasovagal/due to hypotension. 08/11 fu cardiology as outpatient. (4) Dysphagia Dysphagia secondary to achalasia. GI consulted. EGD 08/01/17 showed class D esophagitis. Near circumferential mass 3 x 3 cm in size found in the distal esophagus. Esophageal biopsies shows gastric mucosa with severe acute and chronic inflammation and acute esophagitis. Ana on EGD. On Diflucan. Patient needs to be upright to assist with esophageal emptying. Diflucan for 7 days. Mechanical soft diet 08/07 HIV antibody screen negative. (5) Ana esophagitis As seen on esophageal biopsy. Continue Diflucan 100 mg p.o. daily. Check HIV screen - negative (6) Gastritis I will discontinue Pepcid discontinued on 08/05 and patient started on Protonix 40 minutes by mouth twice a day. (7) Weight loss Likely secondary to decreased oral intake. Patient was started on Megace for appetite stimulant. Dietitian consulted - Recommended Ensure Enlive - Continue. (8) Schizoaffective disorder Upon review of records the patient had been seen on 08/04/17 by psychiatry. Patient at the time delirious thought to be secondary to underlying medical conditions. Patient was placed on Haldol for agitation, however the patient has not been administer Haldol in several days and is very calm. Discussed the case with Dr. Nuno who will see the patient in a.m. to see what medications the patient could be placed on. 08/11 appreciate psychiatric recommendations. Started Risperdal for psychosis and mood. (9) Seizure disorder Patient not on any anticonvulsant medication. The patient was seen by neurology. EEG was obtained which was negative. DVT prophylaxis: Continue Lovenox subcutaneously. Pt Condition on Discharge: Stable Discharge Disposition: Discharge to SNF Discharge Time: > 30 minutes Discharge Instructions DIET: Follow Instructions for: As Tolerated, No Restrictions Additional Diet Instructions: Enlive TID with meals Activities you can perform: See Additionl Instruction Other Activity Instructions: as Per PT intructions. OOB with assistance. Follow up Referrals: Cardiology - 2 Weeks Gastroenterology - 2 Weeks with Marco Durham MD PCP Follow-up - 2 Weeks New Medications: Fluconazole (Diflucan) 100 Mg Tab 100 MG PO DAILY for oropharyngeal candidiasis, #7 TAB Pantoprazole (Pantoprazole) 40 Mg Tab 40 MG PO Q12HR for GERD, #62 TAB Risperidone (Risperdal) 0.5 Mg Tab 0.5 MG PO BID for Psychosis, #62 TAB [Megestrol Liq] () 400 MG/10 ML SUSP 400 MG PO DAILY for appetite, #1 BOTTLE Continued Medications: Acetaminophen (Tylenol) 325 Mg Tab 650 MG PO Q4H PRN for PAIN 1-5 OR TEMP>101, TAB 0 Refills Docusate Sodium (Docusate Sodium) 100 Mg Cap 100 MG PO BID PRN for CONSTIPATION, #60 CAP 0 Refills Levothyroxine (Levothyroxine) 75 Mcg Tab 75 MCG PO DAILY for Thyroid, #30 TAB 0 Refills Magnesium Hydroxide Liq (Milk of Magnesia Liq) 400 Mg/5 Ml Susp 30 ML PO DAILY PRN for MILD CONSTIPATION, #1 BOTTLE 0 Refills Sodium Chloride (Sodium Chloride) 1 Gram Tab 1 GM PO BID for Electrolyte Replacement, TAB 0 Refills Tamsulosin (Flomax) 0.4 Mg Cap 0.4 MG PO DAILY for health, #30 CAP 0 Refills [Lactulose Liq] () 30 ML SYRP 30 ML PO DAILY PRN for SEVERE CONSITIPATION for 30 Days, ML Discontinued Medications: Diphenhydramine (Diphenhydramine) 25 Mg Cap 25 MG PO HS PRN for INSOMNIA, #30 CAP 0 Refills Famotidine (Pepcid) 20 Mg Tab 20 MG PO HS, #60 TAB 0 Refills Lorazepam (Ativan) 1 Mg Tab 1 MG PO Q6H PRN for MODERATE TO SEVERE ANXIETY, TAB 0 Refills Lorazepam (Ativan) 1 Mg Tab 1 MG IM Q6H PRN for MODERATE TO SEVERE ANXIETY, TAB 0 Refills Trazodone (Trazodone) 50 Mg Tab 50 MG PO HS for Control Depression, #30 TAB 0 Refills Elliot Ayala MD Aug 11, 2017 14:05
[2017-08-11] MEDS: risperiDONE 0.5 MG TAB PO SCH ×2 (14:29→19:56)
[2017-08-11] MEDS: ENOXAPARIN SODIUM 40 MG/0.4 ML SYRINGE SQ SCH (14:45)
--- NOTE | 2017-08-11 17:22 | HHI.PR ---
Subjective Remarks Patient is very calm. Denies cp/sob Afebrile Not in restraints. Objective Vitals Vital Signs Date Time Temp Pulse Resp B/P (MAP) Pulse Ox O2 Delivery O2 Flow Rate FiO2 08/11/17 16:00 96.9 89 19 125/65 (85) 95 08/11/17 12:00 98.1 74 19 119/62 (81) 99 08/11/17 08:00 96.9 71 18 113/70 (84) 99 08/11/17 04:00 98.7 72 17 130/76 (94) 98 08/11/17 00:00 98.5 70 17 126/77 (93) 98 08/10/17 20:00 98.4 78 17 121/80 (94) 98 I/O 08/10/17 08/10/17 08/10/17 08/11/17 08/11/17 08/11/17 07:00 15:00 23:00 07:00 15:00 23:00 Intake Total 360 ml 320 ml 480 ml 240 ml Output Total 200 ml Balance 360 ml 320 ml 280 ml 240 ml Intake Oral 360 ml 320 ml 480 ml 240 ml Output Urine Total 200 ml # Voids 2 1 2 # Bowel Movements 0 Result Diagram: 08/10/17 0832 08/10/17 0832 Imaging Last Impressions Chest X-Ray 08/09/17 0000 Signed Impressions: Service Date/Time: Wednesday, August 09, 2017 09:29 - CONCLUSION: 1. No evidence for pneumonia. 2. Large dilated esophagus/achalasia. Alessandro Sanford MD Head CT 08/08/17 0000 Signed Impressions: Service Date/Time: Tuesday, August 08, 2017 15:29 - CONCLUSION: Negative for an acute process. Pipo Hernandez MD FACR Cervical Spine MRI 08/05/17 1458 Signed Impressions: Service Date/Time: Saturday, August 05, 2017 08:14 - CONCLUSION: Multilevel degenerative changes with disc/osteophyte complexes causing focal indentation of the thecal sac on the left side at C5-6 and C6-7. No evidence of cord compression. Multilevel bony neural foraminal stenosis as described above. Jc Watson MD Brain MRI 08/05/17 6177 Signed Impressions: Service Date/Time: Saturday, August 05, 2017 08:14 - CONCLUSION: 1. No acute intracranial abnormality identified. Juancarlos Hernandez MD Carotid Artery Ultrasound 08/04/17 1458 Signed Impressions: Service Date/Time: July 15:24 - CONCLUSION: No evidence of flow-limiting carotid stenosis. Tyler Arriola MD CT Angiography 08/03/17 0000 Signed Impressions: Service Date/Time: Thursday, August 03, 2017 20:32 - CONCLUSION: 1. No pulmonary embolus identified. 2. Postsurgical changes involving the esophagus. This is stable compared to the patient's previous stem. Juancarlos Hernandez MD Objective Remarks GENERAL: Lethargic but arousable to chest rub., NAD SKIN: Warm and dry. HEAD: Normocephalic. EYES: No scleral icterus. No injection or drainage. NECK: Supple, trachea midline. No JVD or lymphadenopathy. CARDIOVASCULAR: Regular rate and rhythm without murmurs, gallops, or rubs. RESPIRATORY: Breath sounds equal bilaterally. No accessory muscle use. GASTROINTESTINAL: Abdomen soft, non-tender, nondistended. MUSCULOSKELETAL: No cyanosis, or edema. BACK: Nontender without obvious deformity. No CVA tenderness. on soft wrist restraints. Medications and IVs Current Medications Medications (Trade) Dose Ordered Sig/Kerry Route Start Time Stop Time Status Last Admin (NS Flush) 2 ml UNSCH PRN IV FLUSH 08/03/17 10:30 (NS Flush) 2 ml BID IV FLUSH 08/03/17 21:00 08/04/17 11:54 (Narcan Inj) 0.4 mg UNSCH PRN IV PUSH 08/03/17 10:45 (Tylenol) 650 mg Q4H PRN PO 08/03/17 11:15 (Synthroid) 75 mcg DAILY@0600 PO 08/04/17 06:00 08/11/17 05:58 (D50w (Vial) Inj) 50 ml UNSCH PRN IV PUSH 08/03/17 14:45 (Glucagon Inj) 1 mg UNSCH PRN OTHER 08/03/17 14:45 (Lovenox Inj) 40 mg Q24H SQ 08/03/17 15:00 08/11/17 14:45 (Diflucan) 100 mg DAILY PO 08/05/17 20:00 08/11/17 07:48 (Protonix) 40 mg Q12HR PO 08/05/17 21:00 08/11/17 07:48 (Sodium Chloride) 1 gm TID PO 08/06/17 09:00 08/11/17 16:55 (Megace Liq) 400 mg DAILY PO 08/07/17 14:00 08/11/17 07:48 (Milk Of Magnesia Liq) 30 ml DAILY PRN PO 08/07/17 14:30 (Miralax) 17 gm DAILY PO 08/08/17 09:00 08/11/17 07:48 (risperDAL) 0.5 mg BID PO 08/11/17 13:30 08/11/17 14:29 A/P Problem List: (1) Encephalopathy acute ICD Code: G93.40 - Encephalopathy, unspecified Status: Acute (2) Hyponatremia ICD Code: E87.1 - Hypo-osmolality and hyponatremia (3) Syncope ICD Code: R55 - Syncope and collapse (4) Dysphagia ICD Code: R13.10 - Dysphagia, unspecified (5) Ana esophagitis ICD Code: B37.81 - Candidal esophagitis Status: Acute (6) Gastritis ICD Code: K29.70 - Gastritis, unspecified, without bleeding (7) Weight loss ICD Code: R63.4 - Abnormal weight loss Status: Acute (8) Schizoaffective disorder ICD Code: F25.9 - Schizoaffective disorder, unspecified Status: Acute Plan: Upon review of records the patient had been seen on 08/04/17 by psychiatry. Patient at the time delirious thought to be secondary to underlying medical conditions. Patient was placed on Haldol for agitation, however the patient has not been administer Haldol in several days and is very calm. Discussed the case with Dr. Nuno who will see the patient in a.m. to see what medications the patient could be placed on. 08/11 appreciate psychiatric recommendations. Started Risperdal for psychosis and mood. (9) Seizure disorder ICD Code: G40.909 - Epilepsy, unspecified, not intractable, without status epilepticus Assessment and Plan (1) Encephalopathy acute Plan: Encephalopathy seems to be improving. Psychiatry consulted. Agree with psychiatry, this is likely metabolic encephalopathy. Medical workup ordered. CT of the head negative for acute process. MRI of the brain negative. Carotid ultrasounds are negative for stenosis. MARCELA screen negative. Encephalopathy is improving. Continue to monitor neurological status. EEG normal. 08/08 patient had episode of lethargy. Doubt organic cause, does not seem to be a syncopal episode. Will check a CT of the brain without IV contrast to rule out an intracranial process. Neurology has cleared the patient to be discharged. 08/09 WBC trending up. PAtient afebrile however due to ams yesterday will check cxr and urinalysis. 08/11 UA negative, CXR negative reviewed by me. (2) Hyponatremia Plan: Suspect hyponatremia is playing a big component on the patient's delirium. Suspect SIADH. Discontinue IV normal saline and will start the patient on sodium chloride tablets. Nephrology consulted and following 08/06 sodium level is 123 today. Hyponatremia appears somewhat chronic and possibly secondary to SIADH from psychiatric/seizure medications. The patient had been on normal saline which have been stopped given worsening sodium levels. As per nephrology recommendations will attempt trial of Samsca 15 mg 1. Continue to follow-up serial sodium levels. Goal less than 6-8 meq correction/ 24 hours. 08/07 sodium is improving slowly, level 129 today. Continue management as per nephrology recommendations. Continue to monitor BMP. 08/08 sodium is slowly improving. 130 today. Continue to monitor BMP. Sodium has been slowly corrected without exceeding 6-8 mEq in 24 hours. 08/09 Na 132 - fu nephrology 08/10 Na 134 (3) Syncope ICD Code: R55 - Syncope and collapse Plan: The patient sustained a witnessed syncopal episode on August 03, 2017. Thought to be secondary to poor oral intake and increased medications. Per medical records the patient received Seroquel, Benadryl, trazodone. Syncope treated with IV hydration and fluid bolus and resolved. The patient was kept on IV normal saline at 84 cc/h. Leukocytosis likely stress induced. No result. Urinalysis checked and negative. Chest x-ray with lungs clear. There is some degree of neurology consulted. Appreciate recommendations. The patient has some degree of orthostatic hypotension. Suspect syncopal episode secondary to orthostatic hypotension. 08/08 will consult cardiology as per neurology recommendations. 08/09 appreciate cardiology recommendations. Syncope likely vasovagal/due to hypotension. 08/11 fu cardiology as outpatient. (4) Dysphagia ICD Code: R13.10 - Dysphagia, unspecified Plan: Dysphagia secondary to achalasia. GI consulted. EGD 08/01/17 showed class D esophagitis. Near circumferential mass 3 x 3 cm in size found in the distal esophagus. Esophageal biopsies shows gastric mucosa with severe acute and chronic inflammation and acute esophagitis. Ana on EGD. On Diflucan. Patient needs to be upright to assist with esophageal emptying. Diflucan for 7 days. Mechanical soft diet 08/07 HIV antibody screen negative. (5) Ana esophagitis ICD Code: B37.81 - Candidal esophagitis Status: Acute Plan: As seen on esophageal biopsy. Continue Diflucan 100 mg p.o. daily. Check HIV screen - negative (6) Gastritis ICD Code: K29.70 - Gastritis, unspecified, without bleeding Plan: I will discontinue Pepcid discontinued on 08/05 and patient started on Protonix 40 minutes by mouth twice a day. (7) Weight loss ICD Code: R63.4 - Abnormal weight loss Status: Acute Plan: Likely secondary to decreased oral intake. I will start the patient on a appetite stimulant. I will start the patient on Megace. Dietitian consulted - Recommended Ensure Enlive - Continue. DVT prophylaxis: Continue Lovenox subcutaneously. Problem Qualifiers (1) Syncope: Qualified Codes: R55 - Syncope and collapse (2) Dysphagia: Qualified Codes: R13.10 - Dysphagia, unspecified (3) Gastritis: Qualified Codes: K29.00 - Acute gastritis without bleeding Elliot Ayala MD Aug 11, 2017 17:22
[2017-08-12] VITALS: BP 126/74; PULSE 86; RESP 20; TEMP 98; O2SAT 98
[2017-08-12 04:00] VITALS: BP 106/62; PULSE 86; RESP 19; TEMP 98.4; O2SAT 98
[2017-08-12] MEDS: LEVOTHYROXINE SODIUM 75 MCG TAB PO SCH (05:45)
[2017-08-12] MEDS: risperiDONE 0.5 MG TAB PO SCH (07:46)
[2017-08-12] MEDS: MEGESTROL ACETATE SUSP 400 MG/10 ML CUP PO SCH (07:46)
[2017-08-12] MEDS: PANTOPRAZOLE SOD 40 MG DELAYED RELEASE TAB PO SCH (07:46)
[2017-08-12] MEDS: FLUCONAZOLE 100 MG TAB PO SCH (07:46)
[2017-08-12] MEDS: SODIUM CHLORIDE 1 GRAM TAB PO SCH ×2 (07:46→11:38)
[2017-08-12] MEDS: POLYETHYLENE GLYCOL 17 GM PKG PO SCH (07:47)
[2017-08-12] MEDS: SODIUM CHLORIDE 0.9% FLUSH 10 ML FLUSH IV FLUSH SCH (07:47)
[2017-08-12 08:00] VITALS: BP_SYST 61; BP_SYST 91; BP_DIAS 61; PULSE 73; RESP 19; TEMP 97.5; O2SAT 96
--- NOTE | 2017-08-12 10:20 | HHI.NPPN ---
Subjective History of Present Illness The patient is a 72-year-old man with a history a seizure disorder, schizoaffective disorder, chronic hyponatremia, BPH, achalasia and some dysphasia. He was in the psych unit and was on the toilet and passed out and transferred to medical unit. Nephrology was consulted for further work up on hyponatremia his sodium level is 126 today. His hyponatremia appears somewhat chronic as he has had a sodium level of 126 on 12/27. Additional Remarks Awake and alert. No acute problems (Damaris Muniz) Review of Systems Respiratory Respiratory Remarks No SOB (Damaris Muniz) Cardiovascular Cardiac Remarks No CP (Damaris Muniz) Objective Data Data 08/12/17 08/13/17 19:00 07:00 Intake Total 120 ml Balance 120 ml Intake Oral 120 ml Vital Signs Date Time Temp Pulse Resp B/P (MAP) Pulse Ox O2 Delivery O2 Flow Rate FiO2 08/12/17 08:00 97.5 73 19 61/ 96 08/12/17 04:00 98.4 86 19 106/62 (77) 98 08/12/17 00:00 98.0 86 20 126/74 (91) 98 08/11/17 23:25 92 08/11/17 20:00 98.4 103 22 121/73 (89) 98 08/11/17 16:00 96.9 89 19 125/65 (85) 95 08/11/17 12:00 98.1 74 19 119/62 (81) 99 (Damaris Muniz) -: 08/10/17 0832 08/10/17 0832 Physical Exam General Appearance: No Acute Distress, Comfortable (Damaris Muniz) Throat Throat Exam: Oral Mucosa [place] & Moist (Damaris Muniz) Pulmonary Resp Exam: Clear Bilaterally (Damaris Muniz) Cardiology CV Exam: Regular, Normal Sinus Rhythm (Damaris Muniz) Gastrointestinal/Abdomen GI Exam: Soft, Non-Tender, Bowel Sounds Present (Damaris Muniz) Genitourinary Exam: Clear Urine (Damaris Muniz) Integumentary Skin Exam: Warm, Dry, Intact (Damaris Muniz) Extremeties Extremities Exam: No Edema (Damaris Muniz) Neurologic Neuro Exam: Alert, Awake (Damaris Muniz) Assessment/Plan Problem List: (1) Hyponatremia ICD Codes: E87.1 - Hypo-osmolality and hyponatremia Plan: His hyponatremia appears somewhat chronic - ongoing hyponatremia and seen earlier in the month with Na 116 on 07/18 (treated with salt tablets/ hypertonic saline and fluid restriction at the time) 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 Sodium levels stable continue NaCl TID Follow Na levels. Now eating better. Nephrology will sign off. Please reconsult if needed. Discharge plans underway (2) Schizoaffective disorder ICD Codes: F25.9 - Schizoaffective disorder, unspecified Status: Chronic (3) BPH (benign prostatic hyperplasia) ICD Codes: N40.0 - Benign prostatic hyperplasia without lower urinary tract symptoms (Damaris Muniz) Problem List: (1) Hyponatremia ICD Codes: E87.1 - Hypo-osmolality and hyponatremia Plan: His hyponatremia appears somewhat chronic - ongoing hyponatremia and seen earlier in the month with Na 116 on 07/18 (treated with salt tablets/ hypertonic saline and fluid restriction at the time) 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 Sodium levels stable continue NaCl TID Follow Na levels. Now eating better. Nephrology will sign off. Please reconsult if needed. Discharge plans underway. Patient seen and examined, agree with above. (2) Schizoaffective disorder ICD Codes: F25.9 - Schizoaffective disorder, unspecified Status: Chronic (3) BPH (benign prostatic hyperplasia) ICD Codes: N40.0 - Benign prostatic hyperplasia without lower urinary tract symptoms (Ellen Palacio MD) Damaris Muniz Aug 12, 2017 10:20 Ellen Palacio MD Aug 12, 2017 21:17
[2017-08-12 12:00] VITALS: BP 90/53; PULSE 83; RESP 19; TEMP 96.9; O2SAT 95
== END 2017-08-12 15:42 | DRG 312 ==
LOC: HIMN 10:12 → N07A 08-04 17:23
PROVIDERS: ADMIT Hospitalist; ATTEND Hospitalist
DX: I95.1 Orthostatic hypotension (principal); G93.41 Metabolic encephalopathy; B37.81 Candidal esophagitis; F05 Delirium due to known physiological condition; E22.2 Syndrome of inappropriate secretion of antidiuretic hormone; K22.0 Achalasia of cardia; R13.10 Dysphagia, unspecified; Z78.1 Physical restraint status; F25.9 Schizoaffective disorder, unspecified; G40.909 Epilepsy, unspecified, not intractable, without status epilepticus; T42.1X5A Adverse effect of iminostilbenes, initial encounter; F31.9 Bipolar disorder, unspecified; K44.9 Diaphragmatic hernia without obstruction or gangrene; N40.0 Benign prostatic hyperplasia without lower urinary tract symptoms; E86.0 Dehydration; K22.8 Other specified diseases of esophagus; K29.00 Acute gastritis without bleeding; R63.4 Abnormal weight loss; E03.9 Hypothyroidism, unspecified; Z87.891 Personal history of nicotine dependence
CPT/HCPCS: 36600; 70450; 70553; 71045; 71275; 72141; 80048; 80053; 81001; 82533; 82550; 82805; 82948; 83735; 83935; 84100; 84300; 84484; 84550; 85025; 85027; 85379; 85652; 86038; 86592; 86703; 86850; 86900; 86901; 87040; 87641; 88305; 93005; 93306; 93880; 95819; A9579; J1200; J1630; J1650; J3480; J7030; Q9967